=== PATIENT | male | born 1995 | race Caucasian/White ===

== ENCOUNTER 2016-02-24 14:28 | Inpatient (IN) | payer OTHER ==
[~2016-02-24] VITALS: Ht 170.2 cm; Wt 55.6 kg
[~2016-02-24 14:28] MED LIST: CLON0.1T12 PO; ERGO500037 PO; METO50TA7 PO; PARO20TA4 PO; SEVE800T7 PO; TACR1CAP PO
[2016-02-24] MEDS ORDERED: ONDANSETRON INJ 2 MG/ML 2 ML VIAL IV STA (15:17)
[2016-02-24] MEDS ORDERED: MoRPHine SULFATE 4 MG/ML 1 ML CARP\\VIAL IV STA ×2 (15:17→17:56)
--- NOTE | 2016-02-24 15:23 | EMERGENCY ROOM VISIT NOTE ---
History First contact with patient: 14:58 Chief Complaint: ILLNESS Stated Complaint: LETHARGY History of Present Illness The patient is a 20 year old male who presents to the Emergency Room via ambulance with complaints of "lethargy". The patient states that beginning on Sunday he began to feel tired, and his back and chest felt tight. He notes that Sunday he felt the same but then began with trouble breathing and trouble hearing. He notes that his hearing felt muffled. He also has felt dehydrated the past few days. He states that today while at dialysis he felt as if he was going to pass out. He is on dialysis because he has MPGN ( Membranoproliferative Glomerulonephritis) and was diagnosed at age 16 and has received a kidney transplant. The mother notes that this kidney is also beginning to fail. The patient states that he has chest pain currently in the center of his chest rated as a 6/10 and in his upper back. He has not slept in the past few days. He also has associated cold feeling and sweats for the past few days. He denies any other medical problems. He denies any unilateral weakness, speech problems. He notes that the chest and back pain is only when he takes a deep breath. The chest pain and back pain is not reproducible with palpation. It is worse with movement. He also has an associated headache, which is not the worse headache of his life but he rates an 8/10. He denies abdominal pain. He states that his bowel and urine have been normal recently. Review of Systems A complete 10-point Review of Systems was discussed with the patient, with pertinent positives and negatives listed in the History of Present Illness. All remaining Review of Systems questions can be considered negative unless otherwise specified. Past Medical/Surgical History Medical Problems: (1) Chest pain (2) Chronic renal failure syndrome (3) History of - hypertension Family History Cancer Hypertension Social History Smoking Status: Never Smoker Alcohol Use: none Drug Use: none Marital Status: single Housing Status: lives with family Occupation Status: student Current/Historical Medications Scheduled Clonidine Hcl (Catapres), 1 TAB PO DAILY Ergocalciferol (Vitamin D 29132 Unit), 1 CAP PO every other week Lisinopril (Zestril), 40 MG PO HS Metoprolol Succ (Toprol Xl) (Toprol-Xl), 50 MG PO DAILY Sevelamer Carbonate (Renvela), 3 TAB PO TID Tacrolimus (Prograf), 2 MG PO BID Allergies Coded Allergies: Amoxicillin (Verified Allergy, Unknown, ?, 02/24/16) Physical Exam Vital Signs Date Time Temp Pulse Resp B/P Pulse Ox O2 Delivery O2 Flow Rate FiO2 02/24/16 19:40 91 18 127/89 96 02/24/16 17:53 86 16 132/91 97 Room Air 02/24/16 16:18 16 118/82 97 Room Air 02/24/16 15:28 99 Room Air 02/24/16 15:20 86 16 120/75 98 Room Air 02/24/16 14:42 104 02/24/16 14:32 36.6 90 16 108/66 99 Room Air Physical Exam VITAL SIGNS - Vital signs and nursing notes were reviewed. The patient is noted to have a slightly decreased blood pressure here at 108/66. He is not tachycardic. He is afebrile. He is oxygenating well on room air at 99%. GENERAL - 20-year-old male appearing his stated age who is in no acute distress. The patient is ill-appearing. He communicates well with provider and answers questions appropriately. SKIN - Without rashes. HEAD - NC/AT. EYES - PERRL with EOMI bilaterally. Sclera anicteric. Palpebral conjunctiva pink and moist with no injection noted. EARS - No deformities of external structures noted on gross examination bilaterally. No pain elicited with palpation of the tragus bilaterally. External auditory canals without discharge or otorrhea. Tympanic membranes pearly collier without retraction or bulging. No fluid or purulent material visualized behind the TM. Handle of malleus, umbo, cone of light, pars tensa/ flaccid all easily visualized. NOSE - Midline and without cyanosis. No epistaxis or purulent drainage noted. Septum midline without deviation or septal hematoma noted. MOUTH/OROPHARYNX - Without perioral cyanosis. Buccal mucosa pink and moist and without leukoplakia. Tongue midline with equal elevation of palate bilaterally. No tonsillar hypertrophy, erythema, or exudates noted. Good dentition noted. NECK - Neck with FROM. LUNGS - Chest wall symmetric without accessory muscle use, intercostals retractions, or central cyanosis. Normal vesicular breath sounds CTA B/L. No wheezes, rales, or rhonchi appreciated. CARDIAC - RRR with S1/S2. No murmur, rubs, or gallops appreciated. ABDOMEN - Abdominal contour without pulsations or visible masses. BS normoactive all four quadrants. No tenderness, palpable masses, hepatosplenomegaly, or ascites noted. EXTREMITIES - No clubbing or peripheral cyanosis. No pretibial edema present. Strength is intact. NEUROLOGIC - Cranial nerves II through XII grossly intact. Sensory intact to light touch throughout. PSYCH - A&Ox3 and cooperates fully with examiner. Pt is very pleasant and interacts well with examiner. Medical Decision & Procedures ER Provider Diagnostic Interpretation: TWO VIEW CHEST CLINICAL HISTORY: Atypical chest pain. FINDINGS: PA and lateral chest radiographs are compared to study dated 08/01/2015. Correlation is made with abdominal CT dated 08/01/2015. The cardiac silhouette is mildly enlarged. There is a small right pleural effusion with minimal right basilar consolidation. This is only seen on the lateral projection. The left lung appears clear. There is no pneumothorax. The bony thorax appears intact. IMPRESSION: 1. Small right pleural effusion with minimal right basilar consolidation. This could present atelectasis versus a mild infectious or inflammatory pneumonitis. Clinical correlation will be required. 2. The cardiac silhouette is mildly enlarged. This may represent pericardial effusion which was shown on the 08/01/[address] Electronically signed by: Edgard López M.D. 02/24/2016 3:55 PM Laboratory Results 02/24/16 14:04 Red Blood Count 3.95, Mean Corpuscular Volume 94.7, Mean Corpuscular Hemoglobin 33.7, Mean Corpuscular Hemoglobin Concent 35.6, Mean Platelet Volume 9.6, Neutrophils (%) (Auto) 65.1, Lymphocytes (%) (Auto) 14.7, Monocytes (%) (Auto) 16.0, Eosinophils (%) (Auto) 3.2, Basophils (%) (Auto) 0.8, Neutrophils # (Auto ) 5.88, Lymphocytes # (Auto) 1.33, Monocytes # (Auto) 1.45, Eosinophils # (Auto ) 0.29, Basophils # (Auto) 0.07 02/24/16 14:04 Test 02/24/16 14:04 02/24/16 15:20 02/24/16 15:26 White Blood Count 9.04 K/uL (4.8-10.8) Red Blood Count 3.95 M/uL (4.7-6.1) Hemoglobin 13.3 g/dL (14.0-18.0) Hematocrit 37.4 % (42-52) Mean Corpuscular Volume 94.7 fL (80-100) Mean Corpuscular Hemoglobin 33.7 pg (25-34) Mean Corpuscular Hemoglobin Concent 35.6 g/dl (32-36) Platelet Count 234 K/uL (130-400) Mean Platelet Volume 9.6 fL (7.4-10.4) Neutrophils (%) (Auto) 65.1 % Lymphocytes (%) (Auto) 14.7 % Monocytes (%) (Auto) 16.0 % Eosinophils (%) (Auto) 3.2 % Basophils (%) (Auto) 0.8 % Neutrophils # (Auto) 5.88 K/uL (1.4-6.5) Lymphocytes # (Auto) 1.33 K/uL (1.2-3.4) Monocytes # (Auto) 1.45 K/uL (0.11-0.59) Eosinophils # (Auto) 0.29 K/uL (0-0.5) Basophils # (Auto) 0.07 K/uL (0-0.2) RDW Standard Deviation 48.1 fL (36.4-46.3) RDW Coefficient of Variation 13.9 % (11.5-14.5) Immature Granulocyte % (Auto) 0.2 % Immature Granulocyte # (Auto) 0.02 K/uL (0.00-0.02) Erythrocyte Sedimentation Rate 44 mm/hr (0-14) Prothrombin Time 11.3 SECONDS (9.0-12.0) Prothromb Time International Ratio 1.1 (0.9-1.1) Activated Partial Thromboplast Time 25.2 SECONDS (21.0-31.0) Partial Thromboplastin Ratio 1.0 Anion Gap 11.0 mmol/L (3-11) Est Creatinine Clear Calc Drug Dose 19.5 ml/min Estimated GFR () 15.4 Estimated GFR (Non- 13.2 BUN/Creatinine Ratio 3.1 (10-20) Calcium Level 10.0 mg/dl (8.5-10.1) Magnesium Level 2.1 mg/dl (1.8-2.4) Total Bilirubin 0.9 mg/dl (0.2-1) Aspartate Amino Transf (AST/SGOT) 14 U/L (15-37) Alanine Aminotransferase (ALT/SGPT) 15 U/L (12-78) Alkaline Phosphatase 70 U/L (45-117) Total Creatine Kinase 61 U/L (39-308) Creatine Kinase MB < 0.5 ng/ml (0.5-3.6) Creatine Kinase MB Ratio (0-3.0) Troponin I < 0.015 ng/ml (0-0.045) Total Protein 9.1 gm/dl (6.4-8.2) Albumin 4.3 gm/dl (3.4-5.0) Globulin 4.8 gm/dl (2.5-4.0) Albumin/Globulin Ratio 0.9 (0.9-2) Influenza Type A Antigen Neg for Influ A (NEG) Influenza Type B Antigen Neg for Influ B (NEG) Lactic Acid Level 1.0 mmol/L (0.4-2.0) Medications Administered Medications (Trade) Dose Ordered Sig/Moises Route Start Time Stop Time Status Last Admin Dose Admin Morphine Sulfate (MoRPHine SULFATE INJ) 4 mg NOW STAT IV 02/24/16 15:17 02/24/16 15:19 DC 02/24/16 15:27 4 MG Ondansetron HCl (Zofran Inj) 4 mg NOW STAT IV 02/24/16 15:17 02/24/16 15:19 DC 02/24/16 15:27 4 MG Morphine Sulfate (MoRPHine SULFATE INJ) 4 mg NOW STAT IV 02/24/16 17:56 02/24/16 17:57 DC 02/24/16 18:05 4 MG Medical Decision Patient was seen and evaluated as above. After obtaining a thorough history and physical examination IV access was obtained and a CBC, CMP, troponin, stat EKG, chest 2 view routine, magnesium, lactic acid, PTT, prothrombin time, flu swab, CPK, CK-MB, UA clean catch culture if indicated, as well as morphine and Zofran for his pain. Monitor was applied and continuous pulse ox was initiated. CBC did not reveal any leukocytosis, however this must be considered in the setting of immunosuppressant drugs. He was slightly anemic with a hemoglobin of 13.3. His ESR was elevated at 44. Coagulation studies were within normal limits. His CMP revealed a slight decrease in sodium at 135 , and decreased chloride at 93. No other significant a slight abnormality. Patient's magnesium and potassium were all within normal limits. His creatinine was elevated at 5.70 but is decreased from 16 back in July. Troponin and CK-MB were both negative. EKG revealed a normal sinus rhythm, with a nonspecific T-wave abnormality with prolonged QT. This was discussed with my attending. The EKG revealed normal sinus rhythm at 86 bpm, there was no acute ectopy or ischemic change noted. Patient was negative for influenza A and B. During the patient's stay a urine was not provided. The chest x-ray revealed: 1. Small right pleural effusion with minimal right basilar consolidation. This could present atelectasis versus a mild infectious or inflammatory pneumonitis. Clinical correlation will be required. 2. The cardiac silhouette is mildly enlarged. This may represent pericardial effusion which was shown on the 08/01/[address] I agree with the radiologists findings. Because of this I was concerned that although the pleural effusion and inflammatory pneumonitis may be contributing to some of the patient's symptoms, I was concerned about the patient's chest pain that was worse with inspiration. In the absence of pneumonia I'm fearful for a pulmonary embolism. The patient's pain was not reproducible with palpation and was worse with inspiration. Initially I wanted to order a CTA of the chest however was hesitant to do so due to the patient's creatinine function. I then discussed the case with my attending and I felt the patient should be admitted. I then spoke with Dr. Issa, the hospitalist regarding the patient's case. It was decided that a pulmonary embolism should be ruled out at this time as that is an emergent etiology. Dr. Issa, noted that he was able to speak with someone regarding the patient's care and it was decided to scan the patient's chest. I also spoke with the renal fellow from [place] regarding the patient's case and it was decided that given the situation the scan should be ordered. I did provide the patient with more morphine for his pain and the patient was admitted for further evaluation and management. Please refer to further documentation regarding his stay. The patient was stable at the time of admission. In evaluation and treatment of this patient the following differential diagnoses were entertained: Pulmonary embolism, acute myocardial infarction, pneumonitis, pleural effusion, endocarditis, among others. Pulmonary embolism is my main concern and CTA is pending. Troponin was negative therefore I feel like acute myocardial infarction is less likely. Pneumonitis was evident on chest x-ray. Mild pleural effusion was also noted. Endocarditis is also a potential concern however further evaluation and management will commence in the inpatient setting. Impression Primary Impression: Chest pain Additional Impressions: Back pain, Anemia, Creatinine elevation, ESR raised Departure Information Dispostion Admitted as an inpatient Referrals No Doctor, Assigned (PCP) Patient Instructions A Signature Page, [facility]
[2016-02-24 15:29] LABS: BASO % 0.8 %; BASO ABS # 0.07 K/uL (0-0.2); COMPLETE YES; EOS % 3.2 %; HEMATOCRIT 37.4 % (42-52); IG% 0.2 %; LYMPH % 14.7 %; LYMPH ABS # 1.33 K/uL (1.2-3.4); MEAN CELL VOLUME 94.7 fL (80-100); MEAN CORPUSCULAR HEMOGLOBIN 33.7 pg (25-34); MEAN CORPUSCULAR HGB CONC 35.6 g/dl (32-36); MEAN PLATELET VOLUME 9.6 fL (7.4-10.4); NEUT % 65.1 %; PLATELET COUNT 234 K/uL (130-400); RED BLOOD COUNT 3.95 M/uL (4.7-6.1); WHITE BLOOD COUNT 9.04 K/uL (4.8-10.8)
[2016-02-24 15:43] LABS: INR 1.1 (0.9-1.1); PROTHROMBIN TIME (PATIENT) 11.3 SECONDS (9.0-12.0)
[2016-02-24 15:51] LABS: ALB/GLOB RATIO 0.9 (0.9-2); ALKALINE PHOSPHATASE 70 U/L (45-117); ALT/SGPT 15 U/L (12-78); AST/SGOT 14 U/L (15-37); BLOOD UREA NITROGEN 18 mg/dl (7-18); BUN/CREATININE RATIO 3.1 (10-20); CARBON DIOXIDE 31 mmol/L (21-32); CHLORIDE 93 mmol/L (98-107); GLUCOSE 93 mg/dl (70-99); MAGNESIUM 2.1 mg/dl (1.8-2.4); SODIUM 135 mmol/L (136-145)
--- NOTE | 2016-02-24 15:56 | DIAGNOSTIC IMAGING REPORT ---
TWO VIEW CHEST CLINICAL HISTORY: Atypical chest pain. FINDINGS: PA and lateral chest radiographs are compared to study dated 08/01/2015. Correlation is made with abdominal CT dated 08/01/2015. The cardiac silhouette is mildly enlarged. There is a small right pleural effusion with minimal right basilar consolidation. This is only seen on the lateral projection. The left lung appears clear. There is no pneumothorax. The bony thorax appears intact. IMPRESSION: 1. Small right pleural effusion with minimal right basilar consolidation. This could present atelectasis versus a mild infectious or inflammatory pneumonitis. Clinical correlation will be required. 2. The cardiac silhouette is mildly enlarged. This may represent pericardial effusion which was shown on the 08/01/[address] Electronically signed by: Edgard López M.D. 02/24/2016 3:55 PM
--- NOTE | 2016-02-24 17:29 | EMERGENCY ROOM VISIT NOTE ---
ED Visit Note First contact with patient: 14:58 I have personally seen and evaluated the patient with the physician assistant boys track coach. I agree with the diagnostic/management decisions and have personally been involved in these decisions and agree with the diagnosis.
[2016-02-24] MEDS ORDERED: OPTIRAY 320 IV PRN (20:00)
[2016-02-24] MEDS ORDERED: HEPARIN SOD 5000 UNIT/0.5 ML CARP SQ SCH (20:00)
--- NOTE | 2016-02-24 20:10 | DIAGNOSTIC IMAGING REPORT ---
CT ANGIOGRAM OF THE CHEST CLINICAL HISTORY: Chest pain COMPARISON STUDY: No previous studies for comparison. TECHNIQUE: Following the IV administration of 82 mL of Optiray-320, CT angiogram of the thorax was performed from the thoracic inlet to the lung bases utilizing the pulmonary embolus protocol. Images are reviewed in the axial, sagittal, and coronal planes. IV contrast was administered without complication. MIP imaging was performed. CT DOSE: 208.91 mGy.cm FINDINGS: No pathologically enlarged axillary mediastinal or hilar lymph nodes were visualized. There was no evidence of thoracic aortic dilatation. There were no pulmonary artery filling defects to indicate acute pulmonary embolism. There are small bilateral pleural effusions. There are dependent opacities, likely atelectatic. The heart is enlarged. There is a small pericardial effusion which appears slightly larger than on the prior study dated 08/01/2015. The kidneys appear atrophic. IMPRESSION: 1. No evidence of acute pulmonary embolism 2. Small bilateral pleural effusions and bibasilar atelectasis 3. Cardiomegaly. Pericardial effusion. Electronically signed by: Santosh Reed M.D. 02/24/2016 8:09 PM
[2016-02-24] MEDS ORDERED: MoRPHine SULFATE 2 MG/ML CARP IV PRN (20:15)
[2016-02-24] MEDS ORDERED: LISINOPRIL 40 MG TAB PO SCH (21:00)
[2016-02-24] MEDS: HEPARIN SOD 5000 UNIT/0.5 ML CARP SQ SCH (21:00)
[2016-02-24 21:16] VITALS: BP 138/88; PULSE 85; TEMP 38.1; O2SAT 97
[2016-02-24] MEDS: MoRPHine SULFATE 4 MG/ML 1 ML CARP\\VIAL IV PRN (21:27)
[2016-02-24] MEDS: ACETAMINOPHEN 325 MG TAB PO PRN (21:27)
[2016-02-24 21:43] VITALS: BP 138/88; PULSE 85; TEMP 38.1; Ht 170.2 cm; Wt 55.6 kg
[2016-02-24] MEDS: TACROLIMUS 1 MG CAP PO SCH (22:26)
[2016-02-24] MEDS: OXYCODONE HCL IR 5 MG TAB (IMMEDIATE RELEASE) PO PRN (22:28)
--- NOTE | 2016-02-24 22:29 | HISTORY & PHYSICAL EXAMINATION ---
DATE OF ADMISSION: 02/24/2016 CHIEF COMPLAINT: Chest pain and back pain. ADMITTING DIAGNOSES: 1. Chest pain, back pain and possible pulmonary embolism. 2. End-stage renal disease, on dialysis. HISTORY OF PRESENT ILLNESS: Mr. Clay is an unfortunate 20-year-old male who suffers from membranous glomerulonephritis and had renal failure. He has failed 2 or 3 renal transplants, however, he is currently still taking Prograf and seeing the [facility] transplant team in [place]. The patient sees dialysis on Sunday, and Sunday at the [facility] dialysis in [place]. The patient states that 2 days prior to admission he began feeling increasing tiredness and pain in his chest and back. The chest pain is central and radiates to his mid scapular area. The patient had dialysis on the day of his admission, said he felt woozy and had difficulty hearing. His blood pressure was low. He was able to tolerate his dialysis at the center, but then presented to the ER for evaluation. In the ER, the evaluation was concerned the patient had a pulmonary embolism; however, they were also concerned with his renal failure, not to pursue a CT angiogram. After some discussion, it was felt that we should pursue the CT angiogram with the understanding that his transplanted kidney is likely questionably salvageable as he had to re-engage with dialysis 6-8 months ago when his creatinine was 16. He currently has some improvement of his pain with parenteral pain medication and is comfortable. PAST MEDICAL HISTORY: Membranous glomerular nephritis diagnosed at age 16 and renal transplantation as mentioned, hypertension. MEDICATIONS: At presentation include the following; vitamin D 50,000 units every other week, lisinopril 40 mg at bedtime, metoprolol XL 50 a day, tacrolimus 2 mg b.i.d., clonidine 0.1 daily and sevelamer 3 tablets of 800 mg three times a day. SOCIAL HISTORY: Socially does not smoke or drink, lives with his mom, she is present. FAMILY HISTORY: Positive for cancer and hypertension. REVIEW OF SYSTEMS: Positive for chills and sweats at night, no defined temperature, occurring almost every night, drenching his sheets. He has no other focuses, signs or symptoms of an infectious etiology. He did the PermCath removed from his right upper chest on 02/01/2016 and this site is healed without fluctuance. His AV fistula is likewise without issue. PHYSICAL EXAMINATION: GENERAL: He is a pleasant male. He is uncomfortable VITAL SIGNS: Temperature 36.6, heart rate is 91, respirations 18, BP 127/89, O2 sats 96 on room air. HEENT: PERRL, EOMI. Oropharynx clear. TMs clear. NECK: Without lymphadenopathy or JVD. HEART: Regular without murmurs. LUNGS: Clear without wheezes or crackles. His right bicep area is where his AV fistula is, it has thrill present. ABDOMEN: Normoactive bowel sounds, soft, nontender. He has reproducible tenderness in the epigastrium. BACK: Tender at the mid scapular area. This is not as well reproduced, he has no CV angle tenderness. EXTREMITIES: Otherwise, besides his AV fistula are without cyanosis, clubbing or edema. He has no splinter hemorrhages or painful nodes on his fingers. NEUROLOGIC: He is awake, alert and appropriate. Cranial nerves II-XII are intact. Equal symmetrical strength and sensation. LABORATORY DATA: White count of 9, H\T\H is 13 and 37, BUN and creatinine are 18 and 5.7. Otherwise, fairly unremarkable. Coag studies are normal. Influenza is negative. Sed rate is pending at the time of dictation as well as a CT angiogram. The patient had a chest x-ray which shows only very small right pleural effusion and a large cardiac silhouette. EKG shows sinus rhythm, some lateral T-wave inversions in V5 and V6, J-point elevation in V2 and V3, but no TN depression or pronounced ST-T wave changes globally. ASSESSMENT: A 20-year-old male, here with chest pain and back pain of undetermined etiology. PLAN: The most danger to life would be pulmonary embolism. This will be ruled out by undergoing a CT angiogram understanding there is some risk to his renal function with this. This will also be able to evaluate his aortic arch and any other intrathoracic origins of his pain. The patient has baseline pericardial effusion, although he has no rubs or positional component to his pain. This could also be a possible etiology. We will get an idea of the size of the effusion on the CT angiogram. We will use parenteral pain control at this time. In regard to his chills, with his recent instrumentation for his PermCath removal and 3 times a week access for his dialysis certainly endocarditis could be a concern. We will obtain blood cultures, an echocardiogram and a sed rate. We will not institute antibiotic therapy at this time. For his renal dysfunction, Dr. Gonzalez will be consulted for continued dialysis. For his hypertension, we will continue his Catapres, lisinopril and metoprolol. We will continue his Prograf at the present time. We need to discuss this with his transplant team if his graft is failing; what would be the utility of continuing the Prograf. At this point in time, we will employ DVT prevention with heparin; however, pending the results of the CT scan we will also help to determine if he needs to be on parenteral systemic anticoagulation. The patient is a full code. MTDD
[2016-02-24 23:50] VITALS: TEMP 37.5
[2016-02-25] VITALS (22 sets, daily range): BP systolic 107–146; BP diastolic 63–98; PULSE 81–99; TEMP 36.7–37.5; O2SAT 90–98
[2016-02-25] MEDS: MoRPHine SULFATE 4 MG/ML 1 ML CARP\\VIAL IV PRN ×2 (06:59→09:49)
[2016-02-25 07:54] LABS: HEMATOCRIT 35.4 % (42-52); MEAN CELL VOLUME 96.5 fL (80-100); MEAN CORPUSCULAR HEMOGLOBIN 33.8 pg (25-34); MEAN PLATELET VOLUME 9.8 fL (7.4-10.4); PLATELET COUNT 254 K/uL (130-400); RED BLOOD COUNT 3.67 M/uL (4.7-6.1); WHITE BLOOD COUNT 9.26 K/uL (4.8-10.8)
[2016-02-25] MEDS: TACROLIMUS 1 MG CAP PO SCH ×2 (08:17→19:55)
[2016-02-25] MEDS: METOPROLOL SUCC 50MG EXT REL TAB PO SCH (08:17)
[2016-02-25] MEDS: OXYCODONE HCL IR 5 MG TAB (IMMEDIATE RELEASE) PO PRN ×2 (08:17→17:01)
[2016-02-25] MEDS: CLONIDINE HCL 0.1 MG TAB PO SCH (08:17)
[2016-02-25] MEDS: SEVELAMER HYDROCH 800 MG TAB PO SCH ×3 (08:17→19:55)
[2016-02-25 08:48] LABS: BUN/CREATININE RATIO 3.4 (10-20); CALCIUM 9.5 mg/dl (8.5-10.1); POTASSIUM 6.6 mmol/L (3.5-5.1)
[2016-02-25] MEDS: HEPARIN SOD 5000 UNIT/0.5 ML CARP SQ SCH ×2 (08:56→19:52)
[2016-02-25] MEDS ORDERED: CALCIUM GLUCONATE 10% 1,000 MG in SODIUM CHLORIDE 0.9% 50ML 50 ML IV ONE (09:30)
[2016-02-25] MEDS ORDERED: NURSING VERBAL MED ORDER ONE ×2 (09:45→13:00)
[2016-02-25] MEDS ORDERED: PAROXETINE 20 MG TAB PO ONE (10:40)
[2016-02-25] MEDS: PANTOprazole INJ 40 MG in SYRINGE 0 ML IV SCH (11:38)
--- NOTE | 2016-02-25 12:27 | ECHOCARDIOGRAM REPORT ---
*NOTICE TO RECEIVING CONSTITUTION PARTY AGENCY This information is strictly Confidential and protected under [place] law. [place] law prohibits you from making any further disclosure of this information unless further disclosure is expressly permitted by the written consent of the person to whom it pertains or is authorized by law. A general authorization for the release of medical or other information is not sufficient for this purpose. Hospital accepts no responsibility if the information is made available to any other person, INCLUDING THE PATIENT. Interpretation Summary * Name: ENRICO PEREZ Study Date: 02/25/2016 06:42 AM BP: 131/83 mmHg * Patient Location: [id number]\S\2 HR: 97 * : 1995 (M/d/yyyy) Gender: Male Height: 67 in * Age: 20 yrs Ethnicity: CA Weight: 153 lb * Ordering Physician: Booker Issa * Referring Physician: Self, Referred * Performed By: Manoj Ford RCS * * Reason For Study: Pericardial Dz * BSA: 1.8 m2 * -- Conclusions -- * 1. Normal left ventricular size and systolic function. EF 55-60%. No regional wall motion abnormalities. Mild concentric left ventricular hypertrophy. No significant diastolic dysfunction. * 2. Mild aortic regurgitation. * 3. Small circumferential pericardial effusion without echocardiographic evidence of tamponade physiology. * 4. Mildly dilated aortic root for age adjusted BSA. Mildly dilated ascending aorta. * 5. Compared to prior study on 02/20/2014, pericardial effusion is now present. Procedure Details * A complete two-dimensional transthoracic echocardiogram was performed (2D, M-mode, Doppler and color flow Doppler). Left Ventricle * Normal left ventricular size and systolic function. EF 55-60%. No regional wall motion abnormalities. Mild concentric left ventricular hypertrophy. No significant diastolic dysfunction. Right Ventricle * The right ventricle is normal in size and function. * The right ventricular systolic function is normal as assessed by tricuspid annular plane systolic excursion (TAPSE) (normal >1.5 cm). Atria * The left atrial size is normal. * Right atrial size is normal. * There is no evidence of atrial septal defect, but resolution does not allow assessment for a patent foramen ovale. Mitral Valve * The mitral valve leaflets appear normal. There is no evidence of stenosis, fluttering, or prolapse. * There is no mitral valve stenosis. * There is trace mitral regurgitation. Tricuspid Valve * The tricuspid valve is not well visualized, but is grossly normal. * There is no tricuspid stenosis. * There is trace tricuspid regurgitation. Aortic Valve * The aortic valve is trileaflet. * No hemodynamically significant valvular aortic stenosis. * Mild aortic regurgitation. Pulmonic Valve * The pulmonary valve is inadequately visualized, but the Doppler data is adequate for interpretation. * There is no pulmonic valvular stenosis. * There is no significant pulmonary regurgitation. Great Vessels * Mildly dilated aortic root for age adjusted BSA. Mildly dilated ascending aorta. * Normal pulmonary venous flow pattern. Pericardium/Pleural * Small circumferential pericardial effusion without echocardiographic evidence of tamponade physiology. Great Vessels * Normal inferior vena cava size and collapsability with sniff indicates a normal right atrial pressure of 3 mmHg MMode 2D Measurements and Calculations IVSd 1.3 cm IVSs 1.3 cm LVIDd 3.6 cm LVIDs 2.6 cm LVPWd 1.3 cm LVPWs 1.2 cm IVS/LVPW 0.97 FS 27.7 % EDV(Teich) 52.8 ml ESV(Teich) 23.9 ml EF(Teich) 54.7 % EDV(cubed) 44.9 ml ESV(cubed) 17.0 ml EF(cubed) 62.2 % % IVS thick 0.84 % % LVPW thick -7.38 % LV mass(C)d 156.7 grams LV mass(C)dI 86.9 grams/m\S\2 LV mass(C)s 95.5 grams LV mass(C)sI 52.9 grams/m\S\2 CO(Teich) 2.8 l/min CI(Teich) 1.5 l/min/m\S\2 SV(Teich) 28.9 ml SI(Teich) 16.0 ml/m\S\2 CO(cubed) 2.7 l/min CI(cubed) 1.5 l/min/m\S\2 SV(cubed) 27.9 ml SI(cubed) 15.5 ml/m\S\2 Ao root diam 4.2 cm Ao root area 13.7 cm\S\2 ACS 2.4 cm LA dimension 3.9 cm asc Aorta Diam 4.5 cm LA/Ao 0.93 LVAd ap4 49.3 cm\S\2 LVLd ap4 11.0 cm EDV(MOD-sp4) 179.0 ml LVAs ap4 28.4 cm\S\2 LVLs ap4 9.6 cm ESV(MOD-sp4) 70.0 ml EF(MOD-sp4) 60.9 % LVAd ap2 40.2 cm\S\2 LVLd ap2 10.2 cm EDV(MOD-sp2) 133.0 ml LVAs ap2 20.9 cm\S\2 LVLs ap2 7.9 cm ESV(MOD-sp2) 47.0 ml EF(MOD-sp2) 64.7 % CO(MOD-sp4) 10.5 l/min CI(MOD-sp4) 5.8 l/min/m\S\2 SV(MOD-sp4) 109.0 ml SI(MOD-sp4) 60.4 ml/m\S\2 CO(MOD-sp2) 8.3 l/min CI(MOD-sp2) 4.6 l/min/m\S\2 SV(MOD-sp2) 86.0 ml SI(MOD-sp2) 47.7 ml/m\S\2 Doppler Measurements and Calculations MV E max braxton 92.8 cm/sec MV A max braxton 85.4 cm/sec MV E/A 1.1 MV P1/2t max braxton 96.1 cm/sec MV P1/2t 54.9 msec MVA(P1/2t) 4.0 cm\S\2 MV dec slope 513.0 cm/sec\S\2 MV dec time 0.18 sec Ao V2 max 125.5 cm/sec Ao max PG 6.3 mmHg Ao max PG (full) 0.03 mmHg AI dec slope 302.5 cm/sec\S\2 LV V1 max PG 6.3 mmHg LV V1 max 125.1 cm/sec TV E max braxton 48.9 cm/sec PA V2 max 99.9 cm/sec PA max PG 4.0 mmHg TR max braxton 253.2 cm/sec
[2016-02-25] MEDS ORDERED: DiphenhydrAMINE HCL 50 MG/ML VIAL ONE (12:55)
[2016-02-25] MEDS: DiphenhydrAMINE HCL 50 MG/ML VIAL IV PRN (12:59)
--- NOTE | 2016-02-25 13:10 | Family Medicine Progress Note ---
Progress Note Date of Service Feb 25, 2016. Subjective Pt evaluation today including: conversation w/ patient, conversation w/ family , physical exam, chart review, lab review, conversation w/ sales consultant, review of inpatient medication list Pain: still has chest pain and back pain on deep inspiration PO Intake: minimal Voiding: no voiding problems Patient lying in bed and appears tired but in no acute distress. Still complaining of chest pain that radiates to the back and is made worse by deep inspiration. Patient also said he had some fever and chills overnight. Constitutional: + chills, + fatigue, + fever, No sweats Eyes: No worsening of vision Respiratory: No cough, No shortness of breath, No sputum, No wheezing Cardiovascular: + chest pain, No orthopnea, No palpitations Abdomen: No nausea, No pain, No vomiting Musculoskeletal: No joint pain, No swelling Medications Current Inpatient Medications Medications (Trade) Dose Ordered Sig/Moises Route Start Time Stop Time Status Last Admin Dose Admin Acetaminophen (Tylenol Tab) 650 mg Q4H PRN PO 02/24/16 20:00 03/25/16 19:59 02/24/16 21:27 650 MG Ondansetron HCl 4 mg 4 mg Q6H PRN IV 02/24/16 20:00 03/25/16 19:59 Pantoprazole Sodium/Syringe (Protonix Inj/ Syringe) 10 ml @ 5 mls/min DAILY@11 IV 02/25/16 11:00 03/26/16 10:59 02/25/16 11:38 5 MLS/MIN Ioversol (Optiray 320) 111 ml UD PRN IV 02/24/16 20:00 02/28/16 19:59 Clonidine HCl (Catapres Tab) 0.1 mg DAILY PO 02/25/16 08:00 03/26/16 08:59 02/25/16 08:17 0.1 MG Sevelamer HCl (Renagel Tab) 2,400 mg TID PO 02/24/16 21:00 03/25/16 20:59 02/25/16 08:17 2,400 MG Oxycodone HCl (Roxicodone Immediate Rel Tab) 10 mg Q6 PRN PO 02/24/16 20:15 03/09/16 20:14 02/25/16 08:17 10 MG Metoprolol Succinate (Toprol Xl Tab) 50 mg DAILY PO 02/25/16 08:00 03/26/16 08:59 02/25/16 08:17 50 MG Tacrolimus (Prograf Cap) 2 mg BID PO 02/24/16 20:00 03/25/16 19:59 02/25/16 08:17 2 MG Heparin Sodium (Porcine) (Heparin Sq 5000 Unit/0.5ml) 5,000 unit Q12 SQ 02/24/16 21:00 03/25/16 20:59 Morphine Sulfate (MoRPHine SULFATE INJ) 2 mg Q2H PRN IV 02/25/16 10:15 03/10/16 10:14 Morphine Sulfate (MoRPHine SULFATE INJ) 4 mg Q2H PRN IV 02/25/16 10:15 03/10/16 10:14 Paroxetine HCl (pAXil TAB) 20 mg QAM PO 02/26/16 08:00 03/27/16 07:59 Objective Vital Signs Date Time Temp Pulse Resp B/P Pulse Ox O2 Delivery O2 Flow Rate FiO2 02/25/16 11:42 36.9 82 143/85 02/25/16 11:00 37.1 84 18 135/86 91 Room Air 02/25/16 10:26 37.3 99 20 98 02/25/16 08:20 Room Air 02/25/16 07:56 37.3 99 20 139/91 98 Room Air 02/25/16 00:03 37.5 97 16 131/83 90 Room Air 02/25/16 00:00 Room Air 02/24/16 23:50 37.5 02/24/16 21:43 38.1 85 20 138/88 Room Air 02/24/16 21:16 38.1 85 20 138/88 97 Room Air 02/24/16 20:56 36.6 94 18 134/96 98 02/24/16 20:56 94 134/96 98 02/24/16 19:40 91 18 127/89 96 02/24/16 17:53 86 16 132/91 97 Room Air 02/24/16 16:18 16 118/82 97 Room Air 02/24/16 15:28 99 Room Air 02/24/16 15:20 86 16 120/75 98 Room Air 02/24/16 14:42 104 02/24/16 14:32 36.6 90 16 108/66 99 Room Air Physical Exam General Appearance: WD/WN, no apparent distress, + pertinent finding (patient appears uncomfortable) Eyes: normal inspection, + pertinent finding ENT: hearing grossly normal, pharynx normal Neck: supple, thyroid normal, no JVD Respiratory/Chest: chest non-tender, lungs clear, normal breath sounds, no respiratory distress, no accessory muscle use, + pertinent finding (pain on deep inspiration) Cardiovascular: regular rate, rhythm, no JVD, no murmur, + pertinent finding ( hyperdynamic) Abdomen: normal bowel sounds, non tender, soft Extremities: non-tender, + pertinent finding (Av fistula in the left bicep, obvious thrill, obvious use and injection sights, non erythematous, bilateral hand tremor) Neurologic/Psychiatric: alert, normal mood/affect, oriented x 3 Skin: normal color, warm/dry, + pertinent finding (non uraemic) Laboratory Results Results Past 24 Hours Test 02/24/16 14:04 02/24/16 15:20 02/24/16 15:26 02/25/16 07:17 Range/Units White Blood Count 9.04 9.26 4.8-10.8 K/uL Red Blood Count 3.95 3.67 4.7-6.1 M/uL Hemoglobin 13.3 12.4 14.0-18.0 g/dL Hematocrit 37.4 35.4 42-52 % Mean Corpuscular Volume 94.7 96.5 80-100 fL Mean Corpuscular Hemoglobin 33.7 33.8 25-34 pg Mean Corpuscular Hemoglobin Concent 35.6 35.0 32-36 g/dl Platelet Count 234 254 130-400 K/uL Mean Platelet Volume 9.6 9.8 7.4-10.4 fL Neutrophils (%) (Auto) 65.1 % Lymphocytes (%) (Auto) 14.7 % Monocytes (%) (Auto) 16.0 % Eosinophils (%) (Auto) 3.2 % Basophils (%) (Auto) 0.8 % Neutrophils # (Auto) 5.88 1.4-6.5 K/uL Lymphocytes # (Auto) 1.33 1.2-3.4 K/uL Monocytes # (Auto) 1.45 0.11-0.59 K/uL Eosinophils # (Auto) 0.29 0-0.5 K/uL Basophils # (Auto) 0.07 0-0.2 K/uL RDW Standard Deviation 48.1 50.1 36.4-46.3 fL RDW Coefficient of Variation 13.9 14.1 11.5-14.5 % Immature Granulocyte % (Auto) 0.2 % Immature Granulocyte # (Auto) 0.02 0.00-0.02 K/uL Erythrocyte Sedimentation Rate 44 0-14 mm/hr Prothrombin Time 11.3 9.0-12.0 SECONDS Prothromb Time International Ratio 1.1 0.9-1.1 Activated Partial Thromboplast Time 25.2 21.0-31.0 SECONDS Partial Thromboplastin Ratio 1.0 Sodium Level 135 133 136-145 mmol/L Potassium Level 4.0 6.6 3.5-5.1 mmol/L Chloride Level 93 93 98-107 mmol/L Carbon Dioxide Level 31 28 21-32 mmol/L Anion Gap 11.0 12.0 3-11 mmol/L Blood Urea Nitrogen 18 34 7-18 mg/dl Creatinine 5.70 10.00 0.60-1.40 mg/dl Est Creatinine Clear Calc Drug Dose 19.5 9.9 ml/min Estimated GFR () 15.4 7.8 Estimated GFR (Non- 13.2 6.7 BUN/Creatinine Ratio 3.1 3.4 10-20 Random Glucose 93 87 70-99 mg/dl Calcium Level 10.0 9.5 8.5-10.1 mg/dl Magnesium Level 2.1 1.8-2.4 mg/dl Total Bilirubin 0.9 0.2-1 mg/dl Aspartate Amino Transf (AST/SGOT) 14 15-37 U/L Alanine Aminotransferase (ALT/SGPT) 15 12-78 U/L Alkaline Phosphatase 70 45-117 U/L Total Creatine Kinase 61 39-308 U/L Creatine Kinase MB < 0.5 0.5-3.6 ng/ml Creatine Kinase MB Ratio 0-3.0 Troponin I < 0.015 0-0.045 ng/ml Total Protein 9.1 6.4-8.2 gm/dl Albumin 4.3 3.4-5.0 gm/dl Globulin 4.8 2.5-4.0 gm/dl Albumin/Globulin Ratio 0.9 0.9-2 Influenza Type A Antigen Neg for Influ A NEG Influenza Type B Antigen Neg for Influ B NEG Lactic Acid Level 1.0 0.4-2.0 mmol/L C-Reactive Protein 19.60 0-0.29 mg/dl Test 02/25/16 09:45 Range/Units Procalcitonin 1.99 0-0.5 ng/mL Microbiology Results 02/24/16 Blood Culture, Received Pending 02/24/16 Blood Culture, Received Pending Assessment and Plan 20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 He presented to the hospital with pleuritic chest pain that radiates to the back. CT was negative for PE, pneumonia, pneumothorax, aortic dissection and aortic aneurysm Hyperkalemia - potassium jumped from 4.0-->6.6 - calcium gluconate given - peaked t waves on EKG - moved to telemetry - dialysis started by Dr. Sesay - repeat potassium at 2pm - creatinine raised from 5-->10 Chest Pain w/fever (38.1) - MSK vs pericarditis vs Endocarditis - ESR raised to 44 - procalcitonin and CRP ordered - Echo negative for endocarditis, no tamponade, EF 55-60 - Morphine Q2 PRN ESRD - baseline creatinine 5 - gets dialysis Sunday, , and Sunday - raised to 10 after getting dialysis yesterday - currently getting dialyzed - On Prograf (Tacrolimus) to prevent rejection - Make sure patient on list for another transplant - Nephrology consulted HTN - Catapres and metoprolol - Lisinopril stopped due to increased creatinine Depression - Paxil 20mg OD Code - Full code Resident Physician Supervision Note: I interviewed and examined the patient. Discussed with Dr. Ni and agree with findings and plan as documented in the note. Any exceptions or clarifications are listed here: None Documented By: Jhony Allison chest pain ongoing - substernal and then around to back between shoulder blades - worse w deep breath. no real change positional, stabbing in quality. had fever. d/w nephrology - and for HD shortly. nephro is wondering if fistula not working properly - leading to limited amount of blood exposed to HD and therefore allowing for K and cr to rise so steeply after HD. ros otherwise negative except for as above vitals noted fatigued, appearing maybe mildly uncomfortable, but nad heent - nc at mmm. no jvd cardio - reg no r/m/g. good heart tones, not muffled, consistent tones abd - soft nd nt, no epigastric tenderness msk - sl asymmetry in rib ROM - L side very slightly exhaled compared to R - but as a whole group not really individual ribs, nontender; periscapular pain also not reproducible. neuro - no focal deficits a/p hyperkalemia w EKG changes - move to [facility], give calcium gluconate stat, HD to start shortly. chest pain - uncertain etiology. CT effectively has ruled out PE, aortic dissection, pneumonia, pneumothorax, rib fx; skin shows no changes c/w early shingles (and pattern radiates to back and crosses midline); hx sounds VERY MSK , but exam does not show consistent findings with this even as he's having pain. concern related to pericardial effusion (ie ?pericarditis) but not positional, EKG and troponin not c/w pericarditis. given that effusion is only (+) finding in the area of his pain - presumptively give consideration to pericarditis. will ask ID input in this regard fever - uncertain etiology - w/u above rules out a lot of significant pathology. blood cultures pending. check urine culture. checked CRP and procalcitonin which were nonspecific but favoring more towards potentially bacterial etiology. again will ask ID input. may need MELVIN to r/o endocarditis (especially with mild nonspecific valvulopathy on TTE). not septic, no clear need for urgent empiric abx. follow closely though, trend markers, low threshold for empiric abx, await ID input as well otherwise as above Continued [facility] stay due to: multiple IV medications needed, home environment unsafe for pt
--- NOTE | 2016-02-25 17:31 | Nephrology Consultation ---
Nephrology Consultation Date & Providers Date of Consultation: Feb 25, 2016. Primary Care Provider: No Doctor, Assigned Referring Provider: Reason for Consultation ESRD History of Present Illness Leonard Clay is a 20-year-old male admitted to [facility] yesterday evening with chest and back pain. 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 He was diagnosed with kidney disease at the age of 16 and reports that he quickly progressed to ESRD. He was maintained on peritoneal dialysis for approximately 3 years before he received a donor renal transplant. He states that his primary disease recurred early following transplant. In the setting of advanced allograft failure, he returned to hemodialysis approximately 5 months ago. He is not interested in home dialysis options. He states that due to the recurrence of his kidney disease he was told that he would not be an acceptable candidate for relisting for a second transplant. He denies any history of allograft rejection. He has been maintained on hemodialysis at [facility] under the care of Dr. Palma. Leonard is on dialysis TTS schedule. I reviewed his treatments with the [facility] nursing staff this morning. He completed 3.5 hours of dialysis without complications yesterday. Net UF was 2.6 kg to EDW of 58.5 kg. Several hours after dialysis, Leonard reports that chest pain started which was the reason he presented to the Emergency Department. Symptoms only improved slightly overnight. CTA was negative for PE. Despite HD yesterday, laboratory studies were notable for hyperkalemia and dialysis was performed for additional clearance today. He tolerated dialysis well with appropriate access flows and pressures. Qb 400. Net UF 1 kg. 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 Hypertension. History of renal transplant. Surgical: Renal transplant, AVF placement, PD catheter Allergies Coded Allergies: Amoxicillin (Verified Allergy, Unknown, ?, 02/24/16) Inpatient Medications Current Inpatient Medications Medications (Trade) Dose Ordered Sig/Moises Route Start Time Stop Time Status Last Admin Dose Admin Acetaminophen (Tylenol Tab) 650 mg Q4H PRN PO 02/24/16 20:00 03/25/16 19:59 02/24/16 21:27 650 MG Ondansetron HCl 4 mg 4 mg Q6H PRN IV 02/24/16 20:00 03/25/16 19:59 Pantoprazole Sodium/Syringe (Protonix Inj/ Syringe) 10 ml @ 5 mls/min DAILY@11 IV 02/25/16 11:00 03/26/16 10:59 02/25/16 11:38 5 MLS/MIN Ioversol (Optiray 320) 111 ml UD PRN IV 02/24/16 20:00 02/28/16 19:59 Clonidine HCl (Catapres Tab) 0.1 mg DAILY PO 02/25/16 08:00 03/26/16 08:59 02/25/16 08:17 0.1 MG Sevelamer HCl (Renagel Tab) 2,400 mg TID PO 02/24/16 21:00 03/25/16 20:59 02/25/16 14:00 2,400 MG Oxycodone HCl (Roxicodone Immediate Rel Tab) 10 mg Q6 PRN PO 02/24/16 20:15 03/09/16 20:14 02/25/16 17:01 10 MG Metoprolol Succinate (Toprol Xl Tab) 50 mg DAILY PO 02/25/16 08:00 03/26/16 08:59 02/25/16 08:17 50 MG Tacrolimus (Prograf Cap) 2 mg BID PO 02/24/16 20:00 03/25/16 19:59 02/25/16 08:17 2 MG Heparin Sodium (Porcine) (Heparin Sq 5000 Unit/0.5ml) 5,000 unit Q12 SQ 02/24/16 21:00 03/25/16 20:59 Morphine Sulfate (MoRPHine SULFATE INJ) 2 mg Q2H PRN IV 02/25/16 10:15 03/10/16 10:14 Morphine Sulfate (MoRPHine SULFATE INJ) 4 mg Q2H PRN IV 02/25/16 10:15 03/10/16 10:14 Paroxetine HCl (pAXil TAB) 20 mg QAM PO 02/26/16 08:00 03/27/16 07:59 Diphenhydramine HCl (Benadryl Inj) 25 mg Q4H PRN IV 02/25/16 13:00 03/26/16 12:59 02/25/16 12:59 25 MG Heparin Sodium (Porcine) (Heparin Iv Bolus) 2,000 unit ONE IV 02/25/16 17:15 02/25/16 17:16 UNV Heparin Sodium (Porcine) (Heparin Iv Bolus) 1,000 unit Q1H IV 02/25/16 17:15 02/25/16 19:16 UNV Family History Cancer Hypertension Social History Smoking Status: Never Smoker Drug Use: none Marital Status: single 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 Review of Systems A complete review of systems was performed. Pertinent positives are noted above. All other systems are negative. Physical Exam Date Time Temp Pulse Resp B/P Pulse Ox O2 Delivery O2 Flow Rate FiO2 02/25/16 16:00 36.7 93 131/76 02/25/16 15:35 36.7 90 18 127/72 94 Room Air 02/25/16 15:15 90 127/72 02/25/16 15:00 90 134/80 02/25/16 14:45 91 145/98 02/25/16 14:30 93 146/90 02/25/16 14:15 86 142/86 02/25/16 14:00 83 130/84 02/25/16 13:45 85 134/82 02/25/16 13:30 84 136/85 02/25/16 13:15 81 132/90 02/25/16 13:00 88 134/87 02/25/16 12:45 83 107/63 02/25/16 12:30 82 131/82 02/25/16 12:15 84 122/77 02/25/16 12:00 85 121/76 02/25/16 12:00 Room Air 02/25/16 11:42 36.9 82 143/85 02/25/16 11:00 37.1 84 18 135/86 91 Room Air 02/25/16 10:26 37.3 99 20 98 02/25/16 08:20 Room Air 02/25/16 07:56 37.3 99 20 139/91 98 Room Air 02/25/16 00:03 37.5 97 16 131/83 90 Room Air 02/25/16 00:00 Room Air 02/24/16 23:50 37.5 02/24/16 21:43 38.1 85 20 138/88 Room Air 02/24/16 21:16 38.1 85 20 138/88 97 Room Air 02/24/16 20:56 36.6 94 18 134/96 98 02/24/16 20:56 94 134/96 98 02/24/16 19:40 91 18 127/89 96 02/24/16 17:53 86 16 132/91 97 Room Air General Appearance: WD/WN, no apparent distress Head: normocephalic, atraumatic Eyes: normal inspection, sclerae normal ENT: normal ENT inspection, pharynx normal Neck: supple, no JVD Respiratory/Chest: lungs clear, no respiratory distress, no accessory muscle use Cardiovascular: regular rate, rhythm, no gallop, no murmur Abdomen/GI: non tender, soft Back: normal inspection, no CVA tenderness Extremities/Musculoskelatal: normal inspection, no pedal edema Neurologic/Psych: alert, oriented x 3 Skin: normal color Laboratory Results Last 24 Hours Test 02/25/16 07:17 02/25/16 09:45 02/25/16 14:00 White Blood Count 9.26 K/uL Red Blood Count 3.67 M/uL Hemoglobin 12.4 g/dL Hematocrit 35.4 % Mean Corpuscular Volume 96.5 fL Mean Corpuscular Hemoglobin 33.8 pg Mean Corpuscular Hemoglobin Concent 35.0 g/dl RDW Standard Deviation 50.1 fL RDW Coefficient of Variation 14.1 % Platelet Count 254 K/uL Mean Platelet Volume 9.8 fL Sodium Level 133 mmol/L Potassium Level 6.6 mmol/L Chloride Level 93 mmol/L Carbon Dioxide Level 28 mmol/L Anion Gap 12.0 mmol/L Blood Urea Nitrogen 34 mg/dl Creatinine 10.00 mg/dl Est Creatinine Clear Calc Drug Dose 9.9 ml/min Estimated GFR () 7.8 Estimated GFR (Non- 6.7 BUN/Creatinine Ratio 3.4 Random Glucose 87 mg/dl Calcium Level 9.5 mg/dl C-Reactive Protein 19.60 mg/dl Procalcitonin 1.99 ng/mL Impression (1) ESRD on hemodialysis (2) Encounter for hemodialysis for ESRD (3) Renal transplant, status post (4) Hypertension (5) Hyperkalemia Leonard is a 20-year-old male with ESRD since age 16. He had early failure of a renal allograft reportedly due to recurrence of his primary kidney disease. He is maintained on prograf and current on hemodialysis. He is on TTS HD at [facility]. Last dialysis was completed yesterday but unfortunately laboratory studies this morning were notable for hyperkalemia. Serum creatinine also elevated. No clinical evidence to suggest rhabdomyolysis and no signs of recirculation otherwise during dialysis. We reviewed and discussed dietary compliance and will be repeating a metabolic profile. Etiology of chest pain remains unclear. CXR, echocardiogram and CTA chest were reviewed today. Recommendations ESRD: -- Tolerated HD today for 1 kg to EDW -- Plan HD tomorrow per TTS schedule -- Renal diet -- Check metabolic profile in the AM -- Continue prograf at home dose Hypertension: -- Clonidine and metoprolol per home schedule CKD/MBD: -- Ren[facility]ed [facility]
[2016-02-25 17:56] LABS: CALCIUM 8.7 mg/dl (8.5-10.1); CREATININE 5.1 mg/dl (0.60-1.40)
[2016-02-25 17:59] LABS: POTASSIUM 4.4 mmol/L (3.5-5.1)
[2016-02-25] MEDS ORDERED: HEPARIN SOD (PORCINE) 1000 UNIT/ML 10 ML VIAL IV SCH (18:00)
[2016-02-25] MEDS: ACETAMINOPHEN 325 MG TAB PO PRN (18:14)
[2016-02-25 18:28] LABS: BUN/CREATININE RATIO 2.1 (10-20)
[2016-02-25] MEDS: HEPARIN SOD (PORCINE) 1000 UNIT/ML 10 ML VIAL IV SCH ×2 (19:00→19:11)
[2016-02-25] MEDS: MoRPHine SULFATE 2 MG/ML CARP IV PRN (19:55)
[2016-02-26] VITALS (23 sets, daily range): BP systolic 131–174; BP diastolic 84–111; PULSE 85–105; TEMP 37–37.9; O2SAT 94–97
[2016-02-26] MEDS: OXYCODONE HCL IR 5 MG TAB (IMMEDIATE RELEASE) PO PRN ×3 (03:28→19:17)
[2016-02-26] MEDS: MoRPHine SULFATE 2 MG/ML CARP IV PRN (06:09)
[2016-02-26 06:27] LABS: BASO % 0.4 %; BASO ABS # 0.03 K/uL (0-0.2); COMPLETE YES; EOS % 4.4 %; HEMATOCRIT 32.4 % (42-52); IG% 0.1 %; LYMPH % 17.5 %; LYMPH ABS # 1.48 K/uL (1.2-3.4); MEAN CELL VOLUME 95.9 fL (80-100); MEAN CORPUSCULAR HEMOGLOBIN 32.2 pg (25-34); MEAN CORPUSCULAR HGB CONC 33.6 g/dl (32-36); MEAN PLATELET VOLUME 9.5 fL (7.4-10.4); MONO % 13.1 %; NEUT % 64.5 %; PLATELET COUNT 223 K/uL (130-400); RED BLOOD COUNT 3.38 M/uL (4.7-6.1); WHITE BLOOD COUNT 8.45 K/uL (4.8-10.8)
[2016-02-26 07:20] LABS: BUN/CREATININE RATIO 2.3 (10-20); CALCIUM 9.6 mg/dl (8.5-10.1); CREATININE 8.1 mg/dl (0.60-1.40)
[2016-02-26] MEDS: DiphenhydrAMINE HCL 50 MG/ML VIAL IV PRN (08:30)
[2016-02-26] MEDS: HEPARIN SOD 5000 UNIT/0.5 ML CARP SQ SCH ×2 (09:00→21:00)
[2016-02-26] MEDS: SEVELAMER HYDROCH 800 MG TAB PO SCH ×3 (10:36→21:08)
[2016-02-26] MEDS: METOPROLOL SUCC 50MG EXT REL TAB PO SCH ×2 (10:37→21:08)
[2016-02-26] MEDS: PAROXETINE 20 MG TAB PO SCH (10:37)
[2016-02-26] MEDS: TACROLIMUS 1 MG CAP PO SCH ×2 (10:37→21:08)
[2016-02-26] MEDS: CLONIDINE HCL 0.1 MG TAB PO SCH (10:38)
[2016-02-26] MEDS: PANTOprazole INJ 40 MG in SYRINGE 0 ML IV SCH (10:39)
--- NOTE | 2016-02-26 12:36 | Dialysis Progress Note ---
Hemodialysis Note Date of Service Feb 26, 2016. Chief Complaint ESRD Subjective No acute events overnight. Leonard reports persistent headaches and chest pain. Pain control has been reasonable. His mother is at the bedside and reported that overall he appears comfortable. Unfortunately, his primary issues is persistent pleuritic chest pain. He denies any shortness of breath. He was seen and evaluated during hemodialysis. Leonard was tolerating dialysis well. Low grade temp of 38.1 overnight but patient did not endorse subjective fevers or chills. No chest wall tenderness. Review of Systems A complete review of systems was performed. Pertinent positives are noted above. All other systems are negative. Vital Signs Last 8 Hrs Date Time Temp Pulse Resp B/P Pulse Ox O2 Delivery O2 Flow Rate FiO2 02/26/16 11:23 37.5 93 18 154/104 96 Room Air 02/26/16 11:22 37.5 93 155/102 02/26/16 11:15 105 146/106 02/26/16 11:00 93 154/104 02/26/16 10:45 94 160/101 02/26/16 10:30 92 150/97 02/26/16 10:15 93 167/111 02/26/16 10:00 97 154/109 02/26/16 09:45 90 146/96 02/26/16 09:30 87 148/100 02/26/16 09:15 86 154/96 02/26/16 09:00 85 153/102 02/26/16 08:45 88 174/107 02/26/16 08:30 86 152/97 02/26/16 08:20 89 166/106 02/26/16 08:09 37.3 92 155/100 02/26/16 07:51 37.3 92 18 159/102 97 Room Air I & O 24-Hour Column 02/26/16 08:00 Intake Total 713 ml Output Total 1000 ml Balance -287 ml Last Recorded Weight Weight (Kilograms): 55.800 Physical Exam General Appearance: no apparent distress, + thin Head: normocephalic, atraumatic Eyes: normal inspection, sclerae normal ENT: normal ENT inspection, pharynx normal Neck: supple, no JVD Respiratory/Chest: lungs clear, no respiratory distress, no accessory muscle use Cardiovascular: regular rate, rhythm, no gallop, + pertinent finding (no rub appreciated during hemodialysis treatment) Abdomen/GI: non tender, soft, + pertinent finding (allograft non tender) Extremities/Musculoskelatal: normal inspection, no pedal edema Neurologic/Psych: alert, oriented x 3 Social History Smoking Status: Never smoker Drug Use: none Marital Status: single 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 Laboratory Results Past 24 Hours 02/26/16 05:55 Red Blood Count 3.38, Mean Corpuscular Volume 95.9, Mean Corpuscular Hemoglobin 32.2, Mean Corpuscular Hemoglobin Concent 33.6, Mean Platelet Volume 9.5, Neutrophils (%) (Auto) 64.5, Lymphocytes (%) (Auto) 17.5, Monocytes (%) (Auto) 13.1, Eosinophils (%) (Auto) 4.4, Basophils (%) (Auto) 0.4, Neutrophils # (Auto ) 5.45, Lymphocytes # (Auto) 1.48, Monocytes # (Auto) 1.11, Eosinophils # (Auto ) 0.37, Basophils # (Auto) 0.03 02/25/16 17:10 02/26/16 05:55 Test 02/25/16 17:10 02/26/16 05:55 Anion Gap 9.0 mmol/L (3-11) 12.0 mmol/L (3-11) Est Creatinine Clear Calc Drug Dose 20.2 ml/min 11.8 ml/min Estimated GFR () 17.6 10.0 Estimated GFR (Non- 15.2 8.7 BUN/Creatinine Ratio 2.1 (10-20) 2.3 (10-20) Calcium Level 8.7 mg/dl (8.5-10.1) 9.6 mg/dl (8.5-10.1) White Blood Count 8.45 K/uL (4.8-10.8) Red Blood Count 3.38 M/uL (4.7-6.1) Hemoglobin 10.9 g/dL (14.0-18.0) Hematocrit 32.4 % (42-52) Mean Corpuscular Volume 95.9 fL (80-100) Mean Corpuscular Hemoglobin 32.2 pg (25-34) Mean Corpuscular Hemoglobin Concent 33.6 g/dl (32-36) Platelet Count 223 K/uL (130-400) Mean Platelet Volume 9.5 fL (7.4-10.4) Neutrophils (%) (Auto) 64.5 % Lymphocytes (%) (Auto) 17.5 % Monocytes (%) (Auto) 13.1 % Eosinophils (%) (Auto) 4.4 % Basophils (%) (Auto) 0.4 % Neutrophils # (Auto) 5.45 K/uL (1.4-6.5) Lymphocytes # (Auto) 1.48 K/uL (1.2-3.4) Monocytes # (Auto) 1.11 K/uL (0.11-0.59) Eosinophils # (Auto) 0.37 K/uL (0-0.5) Basophils # (Auto) 0.03 K/uL (0-0.2) RDW Standard Deviation 48.9 fL (36.4-46.3) RDW Coefficient of Variation 14.0 % (11.5-14.5) Immature Granulocyte % (Auto) 0.1 % Immature Granulocyte # (Auto) 0.01 K/uL (0.00-0.02) C-Reactive Protein 19.00 mg/dl (0-0.29) Procalcitonin 2.15 ng/mL (0-0.5) Allergies Coded Allergies: Amoxicillin (Verified Allergy, Unknown, ?, 02/24/16) Medications Current Inpatient Medications Medications (Trade) Dose Ordered Sig/Moises Route Start Time Stop Time Status Last Admin Dose Admin Acetaminophen (Tylenol Tab) 650 mg Q4H PRN PO 02/24/16 20:00 03/25/16 19:59 02/25/16 18:14 650 MG Ondansetron HCl 4 mg 4 mg Q6H PRN IV 02/24/16 20:00 03/25/16 19:59 Pantoprazole Sodium/Syringe (Protonix Inj/ Syringe) 10 ml @ 5 mls/min DAILY@11 IV 02/25/16 11:00 03/26/16 10:59 02/26/16 10:39 5 MLS/MIN Ioversol (Optiray 320) 111 ml UD PRN IV 02/24/16 20:00 02/28/16 19:59 Clonidine HCl (Catapres Tab) 0.1 mg DAILY PO 02/25/16 08:00 03/26/16 08:59 02/26/16 10:38 0.1 MG Sevelamer HCl (Renagel Tab) 2,400 mg TID PO 02/24/16 21:00 03/25/16 20:59 02/26/16 10:36 2,400 MG Oxycodone HCl (Roxicodone Immediate Rel Tab) 10 mg Q6 PRN PO 02/24/16 20:15 03/09/16 20:14 02/26/16 11:50 10 MG Metoprolol Succinate (Toprol Xl Tab) 50 mg DAILY PO 02/25/16 08:00 03/26/16 08:59 02/26/16 10:37 50 MG Tacrolimus (Prograf Cap) 2 mg BID PO 02/24/16 20:00 03/25/16 19:59 02/26/16 10:37 2 MG Heparin Sodium (Porcine) (Heparin Sq 5000 Unit/0.5ml) 5,000 unit Q12 SQ 02/24/16 21:00 03/25/16 20:59 Morphine Sulfate (MoRPHine SULFATE INJ) 2 mg Q2H PRN IV 02/25/16 10:15 03/10/16 10:14 02/26/16 06:09 2 MG Morphine Sulfate (MoRPHine SULFATE INJ) 4 mg Q2H PRN IV 02/25/16 10:15 03/10/16 10:14 Paroxetine HCl (pAXil TAB) 20 mg QAM PO 02/26/16 08:00 03/27/16 07:59 02/26/16 10:37 20 MG Diphenhydramine HCl (Benadryl Inj) 25 mg Q4H PRN IV 02/25/16 13:00 03/26/16 12:59 02/26/16 08:30 25 MG Impression (1) ESRD on hemodialysis (2) Encounter for hemodialysis for ESRD (3) Renal transplant, status post (4) Hypertension (5) Hyperkalemia Leonard is a 20-year-old male with ESRD since age 16. 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 She stated that testing for SLE was negative. 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 No rejection noted on biopsies obtained. He is maintained on Prograf. He is on TTS HD at [facility]. He completed a full dialysis treatment yesterday without complications for hyperkalemia. Etiology of chest pain and headaches remain unclear. CXR, echocardiogram and CTA chest were overall unremarkable aside from small pericardial and pleural effusions. Fevers and non specific inflammatory markers have been present. Recommendations ESRD: -- HD today for additional UF/clearance per TTS schedule -- Renal diet -- Continue to monitor metabolic profile while inpatient -- Continue Prograf at current dose -- MPGN can be associated with a variety of immune and connective tissue conditions but clinical presentation does not suggest a specific etiology -- Screening EN was negative in 2014. There is no obvious synovitis or joint effusions and -- Clinical presentation does not suggest symptomatic transplant rejection Hypertension: -- Clonidine and metoprolol per home schedule CKD/MBD: -- Henrique [facility]
[2016-02-26] MEDS: MoRPHine SULFATE 4 MG/ML 1 ML CARP\\VIAL IV PRN ×3 (14:01→22:48)
--- NOTE | 2016-02-26 15:41 | Medical Consult ---
Consultation Date of Consultation: Feb 26, 2016. Attending Physician: Jhony Cooper D.O. 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 He has had extensive workup without obvious etiology being found. CT scan of the chest, read by me, shows small pleural effusion and cardiomegaly, no evidence pneumonia or pulmonary embolism. Echocardiogram also shows small pleural effusion. Patient denies any cough, gastrointestinal or urinary complaints, rash, joint complaints , or rash. No significant travel or exposure history. Past Medical/Surgical History Medical Problems: (1) Acute renal failure Status: Acute (2) Anemia Status: Acute (3) Back pain Status: Acute (4) Creatinine elevation Status: Acute (5) ESR raised Status: Acute (6) Nausea vomiting and diarrhea Status: Acute Social History Problems: (1) Status post kidney transplant Status: Acute Medical Problems: (1) Chest pain (2) Chronic renal failure syndrome (3) Encounter for hemodialysis for ESRD (4) ESRD on hemodialysis (5) History of - hypertension (6) Hyperkalemia (7) Hypertension Surgical Problems: (1) Renal transplant, status post Family History Cancer Hypertension Social History Smoking Status: Never Smoker Drug Use: none Marital Status: single Housing Status: lives with family Occupation Status: student Allergies Coded Allergies: Amoxicillin (Verified Allergy, Unknown, ?, 02/24/16) Current Inpatient Medications Current Inpatient Medications Medications (Trade) Dose Ordered Sig/Moises Route Start Time Stop Time Status Last Admin Dose Admin Acetaminophen (Tylenol Tab) 650 mg Q4H PRN PO 02/24/16 20:00 03/25/16 19:59 02/25/16 18:14 650 MG Ondansetron HCl 4 mg 4 mg Q6H PRN IV 02/24/16 20:00 03/25/16 19:59 Pantoprazole Sodium/Syringe (Protonix Inj/ Syringe) 10 ml @ 5 mls/min DAILY@11 IV 02/25/16 11:00 03/26/16 10:59 02/26/16 10:39 5 MLS/MIN Ioversol (Optiray 320) 111 ml UD PRN IV 02/24/16 20:00 02/28/16 19:59 Clonidine HCl (Catapres Tab) 0.1 mg DAILY PO 02/25/16 08:00 03/26/16 08:59 02/26/16 10:38 0.1 MG Sevelamer HCl (Renagel Tab) 2,400 mg TID PO 02/24/16 21:00 03/25/16 20:59 02/26/16 10:36 2,400 MG Oxycodone HCl (Roxicodone Immediate Rel Tab) 10 mg Q6 PRN PO 02/24/16 20:15 03/09/16 20:14 02/26/16 11:50 10 MG Metoprolol Succinate (Toprol Xl Tab) 50 mg DAILY PO 02/25/16 08:00 03/26/16 08:59 02/26/16 10:37 50 MG Tacrolimus (Prograf Cap) 2 mg BID PO 02/24/16 20:00 03/25/16 19:59 02/26/16 10:37 2 MG Heparin Sodium (Porcine) (Heparin Sq 5000 Unit/0.5ml) 5,000 unit Q12 SQ 02/24/16 21:00 03/25/16 20:59 Morphine Sulfate (MoRPHine SULFATE INJ) 2 mg Q2H PRN IV 02/25/16 10:15 03/10/16 10:14 02/26/16 06:09 2 MG Morphine Sulfate (MoRPHine SULFATE INJ) 4 mg Q2H PRN IV 02/25/16 10:15 03/10/16 10:14 02/26/16 14:01 4 MG Paroxetine HCl (pAXil TAB) 20 mg QAM PO 02/26/16 08:00 03/27/16 07:59 02/26/16 10:37 20 MG Diphenhydramine HCl (Benadryl Inj) 25 mg Q4H PRN IV 02/25/16 13:00 03/26/16 12:59 02/26/16 08:30 25 MG Review of Systems Constitutional: + chills, + fatigue, + fever, + sweats, + weakness Eyes: No problem reported ENT: + hearing loss, No problem reported Respiratory: + shortness of breath, No problem reported Cardiovascular: + chest pain Abdomen: No problem reported Musculoskeletal: No problem reported Genitourinary - Male: No problem reported Neurologic: No problem reported Psychiatric: No problem reported Endocrine: No problem reported Hematologic / Lymphatic: No problem reported Integumentary: No problem reported Allergic / Immunologic: No problem reported Physical Exam Date Time Temp Pulse Resp B/P Pulse Ox O2 Delivery O2 Flow Rate FiO2 02/26/16 11:23 37.5 93 18 154/104 96 Room Air 02/26/16 11:22 37.5 93 155/102 02/26/16 11:15 105 146/106 02/26/16 11:00 93 154/104 02/26/16 10:45 94 160/101 02/26/16 10:30 92 150/97 02/26/16 10:15 93 167/111 02/26/16 10:00 97 154/109 02/26/16 09:45 90 146/96 02/26/16 09:30 87 148/100 02/26/16 09:15 86 154/96 02/26/16 09:00 85 153/102 02/26/16 08:45 88 174/107 02/26/16 08:30 86 152/97 02/26/16 08:20 89 166/106 02/26/16 08:09 37.3 92 155/100 02/26/16 07:51 37.3 92 18 159/102 97 Room Air 02/26/16 04:00 Room Air 02/26/16 03:36 37.3 89 18 152/90 97 Room Air 02/26/16 00:04 37.1 88 18 138/84 94 Room Air 02/26/16 00:00 Room Air 02/25/16 20:00 Room Air 02/25/16 19:54 37.4 87 18 131/77 93 Room Air 02/25/16 16:00 36.7 93 131/76 02/25/16 16:00 Room Air 02/25/16 15:35 36.7 90 18 127/72 94 Room Air General Appearance: WD/WN, no apparent distress, + thin Head: normocephalic, atraumatic Eyes: normal inspection, EOMI, sclerae normal ENT: normal ENT inspection, hearing grossly normal, pharynx normal Neck: supple, no adenopathy, thyroid normal, trachea midline Respiratory/Chest: chest non-tender, lungs clear, normal breath sounds, no respiratory distress Cardiovascular: regular rate, rhythm, no gallop, no murmur Abdomen/GI: normal bowel sounds, non tender, soft, no organomegaly Back: normal inspection, no CVA tenderness Extremities/Musculoskelatal: no calf tenderness, non-tender Neurologic/Psych: alert, oriented x 3 Skin: normal color, warm/dry, no rash Lymphatic: no adenopathy Laboratory Results ----- RUN DATE: 02/26/16 [facility] LAB PAGE 1 RUN TIME: 740 Specimen Inquiry PATIENT: ENRICO PERE[id number] AGE/SX: 20/M ROOM: [facility] REG : 02/24/[address]: Jhony Cooper D.O. : 1995 BED: 1 DIS : STATUS: ADM IN TLOC: SPEC #: [id number] GAY: 02/24/16 STATUS: RES REQ #: [id number] RECD: 02/24/[address]: Booker Issa M.D. SOURCE: BLOOD ENTR: 02/24/16-[address] [facility] [address]: Mychal Good D.O. SPDESC: Lissette Gonzalez MD No Doctor, Assigned ORDERED: BLOOD CULTURE Procedure Result Verified Site BLD CULT Preliminary 02/26/16 NO GROWTH TO DATE. Last 24 Hours Test 02/25/16 17:10 02/26/16 05:55 Sodium Level 137 mmol/L 137 mmol/L Potassium Level 4.4 mmol/L 5.0 mmol/L Chloride Level 99 mmol/L 99 mmol/L Carbon Dioxide Level 29 mmol/L 26 mmol/L Anion Gap 9.0 mmol/L 12.0 mmol/L Blood Urea Nitrogen 11 mg/dl 19 mg/dl Creatinine 5.10 mg/dl 8.10 mg/dl Est Creatinine Clear Calc Drug Dose 20.2 ml/min 11.8 ml/min Estimated GFR () 17.6 10.0 Estimated GFR (Non- 15.2 8.7 BUN/Creatinine Ratio 2.1 2.3 Random Glucose 99 mg/dl 94 mg/dl Calcium Level 8.7 mg/dl 9.6 mg/dl White Blood Count 8.45 K/uL Red Blood Count 3.38 M/uL Hemoglobin 10.9 g/dL Hematocrit 32.4 % Mean Corpuscular Volume 95.9 fL Mean Corpuscular Hemoglobin 32.2 pg Mean Corpuscular Hemoglobin Concent 33.6 g/dl Platelet Count 223 K/uL Mean Platelet Volume 9.5 fL Neutrophils (%) (Auto) 64.5 % Lymphocytes (%) (Auto) 17.5 % Monocytes (%) (Auto) 13.1 % Eosinophils (%) (Auto) 4.4 % Basophils (%) (Auto) 0.4 % Neutrophils # (Auto) 5.45 K/uL Lymphocytes # (Auto) 1.48 K/uL Monocytes # (Auto) 1.11 K/uL Eosinophils # (Auto) 0.37 K/uL Basophils # (Auto) 0.03 K/uL RDW Standard Deviation 48.9 fL RDW Coefficient of Variation 14.0 % Immature Granulocyte % (Auto) 0.1 % Immature Granulocyte # (Auto) 0.01 K/uL C-Reactive Protein 19.00 mg/dl Procalcitonin 2.15 ng/mL CT ANGIOGRAM OF THE CHEST CLINICAL HISTORY: Chest pain COMPARISON STUDY: No previous studies for comparison. TECHNIQUE: Following the IV administration of 82 mL of Optiray-320, CT angiogram of the thorax was performed from the thoracic inlet to the lung bases utilizing the pulmonary embolus protocol. Images are reviewed in the axial, sagittal, and coronal planes. IV contrast was administered without complication. MIP imaging was performed. CT DOSE: 208.91 mGy.cm FINDINGS: No pathologically enlarged axillary mediastinal or hilar lymph nodes were visualized. There was no evidence of thoracic aortic dilatation. There were no pulmonary artery filling defects to indicate acute pulmonary embolism. There are small bilateral pleural effusions. There are dependent opacities, likely atelectatic. The heart is enlarged. There is a small pericardial effusion which appears slightly larger than on the prior study dated 08/01/2015. The kidneys appear atrophic. IMPRESSION: 1. No evidence of acute pulmonary embolism 2. Small bilateral pleural effusions and bibasilar atelectasis 3. Cardiomegaly. Pericardial effusion. Electronically signed by: Santosh Reed M.D. 02/24/2016 8:09 PM The status of this report is Signed. Draft = Not yet reviewed or approved by Radiologist. Signed = Reviewed and approved by Radiologist. <AttendingPhy></AttendingPhy> <FamilyPhy>No Doctor, Assigned</FamilyPhy> < PrimaryPhy>No Doctor, Assigned</PrimaryPhy> <UnitNumber>[id number]</UnitNumber> <VisitNumber>[id number]</VisitNumber> <PatientName>ENRICO PEREZ</ PatientName> <DateOfBirth>1995</DateOfBirth> <Location>[facility]</Location> < ServiceDate>02/24/16</ServiceDate> <MNE>ESINDI</MNE> <OrderingPhy>Booker Issa M.D.</OrderingPhy> <OrderingPhyMNE>f rep ord dr barker</OrderingPhyMNE> < DictatingPhyMNE>f rep dict dr barker</DictatingPhyMNE> <CCListMNE>f rep ct lorrainee</ CCListMNE> <AdmittingPhyMNE>f pt admit dr barker</AdmittingPhyMNE> <AttendingPhyMNE >f pt attend dr barker</AttendingPhyMNE> <ConsultingPhyMNE>f pt consult dr braker</ConsultingPhyMNE> <FamilyPhyMNE>f pt fam dr barker</FamilyPhyMNE> <OtherPhyMNE>f pt other dr barker</OtherPhyMNE Assessment & Plan 20-year-old male with 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 Only findings thus far have been small pericardial effusion, elevated procalcitonin and C reactive protein. Negative blood cultures and no other localizing findings and negative CT of the chest, acute bacterial process seems somewhat less likely clinical picture more consistent with pericarditis, with both infectious ( most likely viral) and inflammatory etiologies possible. I have ordered appropriate studies for CMV and EBV, and await final blood culture results. Continue to hold antibiotics unless cultures become positive or fevers recur. Will follow.
[2016-02-26] MEDS ORDERED: LIDODERM (LIDOCAINE) PATCH 5% TD ONE (16:00)
[2016-02-26] MEDS ORDERED: DIAZEPAM 5MG TAB PO ONE (16:15)
--- NOTE | 2016-02-26 17:48 | Family Medicine Progress Note ---
Progress Note Date of Service Feb 26, 2016. Subjective Pt evaluation today including: conversation w/ patient, physical exam, chart review, review of studies, conversation w/ sap portal consultant, review of inpatient medication list Pain: 9/10 pleuritic Chest Pain, back pain, no worse than previous. Pt reports ongoing 9/10 pleuritic Chest pain radiating to back, occasional SOB. + JEFFREY, no visual changes Constitutional: No chills, No fever Respiratory: + shortness of breath (occasional), No cough Cardiovascular: + chest pain, No palpitations Abdomen: No nausea, No pain, No vomiting Medications Current Inpatient Medications Medications (Trade) Dose Ordered Sig/Moises Route Start Time Stop Time Status Last Admin Dose Admin Acetaminophen (Tylenol Tab) 650 mg Q4H PRN PO 02/24/16 20:00 03/25/16 19:59 02/25/16 18:14 650 MG Ondansetron HCl 4 mg 4 mg Q6H PRN IV 02/24/16 20:00 03/25/16 19:59 Pantoprazole Sodium/Syringe (Protonix Inj/ Syringe) 10 ml @ 5 mls/min DAILY@11 IV 02/25/16 11:00 03/26/16 10:59 02/25/16 11:38 5 MLS/MIN Ioversol (Optiray 320) 111 ml UD PRN IV 02/24/16 20:00 02/28/16 19:59 Clonidine HCl (Catapres Tab) 0.1 mg DAILY PO 02/25/16 08:00 03/26/16 08:59 02/25/16 08:17 0.1 MG Sevelamer HCl (Renagel Tab) 2,400 mg TID PO 02/24/16 21:00 03/25/16 20:59 02/25/16 19:55 2,400 MG Oxycodone HCl (Roxicodone Immediate Rel Tab) 10 mg Q6 PRN PO 02/24/16 20:15 03/09/16 20:14 02/26/16 03:28 10 MG Metoprolol Succinate (Toprol Xl Tab) 50 mg DAILY PO 02/25/16 08:00 03/26/16 08:59 02/25/16 08:17 50 MG Tacrolimus (Prograf Cap) 2 mg BID PO 02/24/16 20:00 03/25/16 19:59 02/25/16 19:55 2 MG Heparin Sodium (Porcine) (Heparin Sq 5000 Unit/0.5ml) 5,000 unit Q12 SQ 02/24/16 21:00 03/25/16 20:59 Morphine Sulfate (MoRPHine SULFATE INJ) 2 mg Q2H PRN IV 02/25/16 10:15 03/10/16 10:14 02/26/16 06:09 2 MG Morphine Sulfate (MoRPHine SULFATE INJ) 4 mg Q2H PRN IV 02/25/16 10:15 03/10/16 10:14 Paroxetine HCl (pAXil TAB) 20 mg QAM PO 02/26/16 08:00 03/27/16 07:59 Diphenhydramine HCl (Benadryl Inj) 25 mg Q4H PRN IV 02/25/16 13:00 03/26/16 12:59 02/25/16 12:59 25 MG Objective Vital Signs Date Time Temp Pulse Resp B/P Pulse Ox O2 Delivery O2 Flow Rate FiO2 02/26/16 07:51 37.3 92 18 159/102 97 Room Air 02/26/16 04:00 Room Air 02/26/16 03:36 37.3 89 18 152/90 97 Room Air 02/26/16 00:04 37.1 88 18 138/84 94 Room Air 02/26/16 00:00 Room Air 02/25/16 20:00 Room Air 02/25/16 19:54 37.4 87 18 131/77 93 Room Air 02/25/16 16:00 36.7 93 131/76 02/25/16 16:00 Room Air 02/25/16 15:35 36.7 90 18 127/72 94 Room Air 02/25/16 15:15 90 127/72 02/25/16 15:00 90 134/80 02/25/16 14:45 91 145/98 02/25/16 14:30 93 146/90 02/25/16 14:15 86 142/86 02/25/16 14:00 83 130/84 02/25/16 13:45 85 134/82 02/25/16 13:30 84 136/85 02/25/16 13:15 81 132/90 02/25/16 13:00 88 134/87 02/25/16 12:45 83 107/63 02/25/16 12:30 82 131/82 02/25/16 12:15 84 122/77 02/25/16 12:00 85 121/76 02/25/16 12:00 Room Air 02/25/16 11:42 36.9 82 143/85 02/25/16 11:00 37.1 84 18 135/86 91 Room Air 02/25/16 10:26 37.3 99 20 98 Physical Exam General Appearance: WD/WN, no apparent distress Eyes: normal inspection Neck: supple, no JVD Respiratory/Chest: lungs clear, normal breath sounds Cardiovascular: regular rate, rhythm, no JVD, no murmur Abdomen: normal bowel sounds, non tender, soft Extremities: no pedal edema, no calf tenderness, + pertinent finding (fistula in place ofr dialysis LUE) Neurologic/Psychiatric: alert Skin: normal color, warm/dry Laboratory Results Results Past 24 Hours Test 02/25/16 09:45 02/25/16 17:10 02/26/16 05:55 Range/Units Procalcitonin 1.99 2.15 0-0.5 ng/mL Sodium Level 137 137 136-145 mmol/L Potassium Level 4.4 5.0 3.5-5.1 mmol/L Chloride Level 99 99 98-107 mmol/L Carbon Dioxide Level 29 26 21-32 mmol/L Anion Gap 9.0 12.0 3-11 mmol/L Blood Urea Nitrogen 11 19 7-18 mg/dl Creatinine 5.10 8.10 0.60-1.40 mg/dl Est Creatinine Clear Calc Drug Dose 20.2 11.8 ml/min Estimated GFR () 17.6 10.0 Estimated GFR (Non- 15.2 8.7 BUN/Creatinine Ratio 2.1 2.3 10-20 Random Glucose 99 94 70-99 mg/dl Calcium Level 8.7 9.6 8.5-10.1 mg/dl White Blood Count 8.45 4.8-10.8 K/uL Red Blood Count 3.38 4.7-6.1 M/uL Hemoglobin 10.9 14.0-18.0 g/dL Hematocrit 32.4 42-52 % Mean Corpuscular Volume 95.9 80-100 fL Mean Corpuscular Hemoglobin 32.2 25-34 pg Mean Corpuscular Hemoglobin Concent 33.6 32-36 g/dl Platelet Count 223 130-400 K/uL Mean Platelet Volume 9.5 7.4-10.4 fL Neutrophils (%) (Auto) 64.5 % Lymphocytes (%) (Auto) 17.5 % Monocytes (%) (Auto) 13.1 % Eosinophils (%) (Auto) 4.4 % Basophils (%) (Auto) 0.4 % Neutrophils # (Auto) 5.45 1.4-6.5 K/uL Lymphocytes # (Auto) 1.48 1.2-3.4 K/uL Monocytes # (Auto) 1.11 0.11-0.59 K/uL Eosinophils # (Auto) 0.37 0-0.5 K/uL Basophils # (Auto) 0.03 0-0.2 K/uL RDW Standard Deviation 48.9 36.4-46.3 fL RDW Coefficient of Variation 14.0 11.5-14.5 % Immature Granulocyte % (Auto) 0.1 % Immature Granulocyte # (Auto) 0.01 0.00-0.02 K/uL C-Reactive Protein 19.00 0-0.29 mg/dl Assessment and Plan 20 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 reassess for improvement in the morning Hx of Fever/ Suspected infection -fever resolved - procalcitonin 2.15, CRP 19, infectious origin inconclusive based on lack of leukocytosis Hyperkalemia - resolved with dialysis - nl sinus rhythm overnight per telemetry - moved to telemetry - F/u prp in the morning ESRD - baseline creatinine 5 - gets dialysis Sunday, , and Sunday - Cr 5.8--> 8.1 despite dialysis yesterday - also dialyzed this morning - Continue Prograf - Await Nephrology input for worsening Cr HTN - BP elevated in the 150's systolic despite Catapres and metoprolol - Increased Metoprolol to 50 mg BID Low H/H -likely due to dilution effect, 10.9/32.4 <-- 12.4/35.4 -Continue to monitor Depression - Continue Paxil 20mg OD Code - Full code Resident Physician Supervision Note: I interviewed and examined the patient. Discussed with Dr. Odonnell and agree with findings and plan as documented in the note. Any exceptions or clarifications are listed here: None Documented By: Jhony Cooper feeling about the same - chest pain radiating to back unchanged no further fevers vitals noted nad breathing unlabored MSK exam unchanged - very mild asymmetry on exam, but no pain reproducible chest pain - ?atypical for pericarditis, fits the most w rib/MSK but exam not consistent with this, less likely "generic" pleurisy given no pulmonary/pleural nidus for this ---check EN and RF - possibly autoimmune mediated muscle pain creating muscle inflammation and setting up scenario of muscular "pain out of proportion to exam " ---lidocaine patch, trial of valium for muscle relaxant effect fever/elevated inflammatory markers -no overt sepsis. no new findings today, continue to follow closely. no role for empiric abx yet, ID input noted/appreciated. -?related to transplant rejection? ESRD on HD -ongoing dialysis. nephrology following for ?fistula issues Continued [facility] stay due to: inadequate oral pain control, multiple IV medications needed Discharge planning: home Resident Tracking Resident Involvement: Resident Care Provided Care Provided: Adult Hospital Medicine
[2016-02-26] MEDS: HEPARIN SOD (PORCINE) 1000 UNIT/ML 10 ML VIAL IV SCH (18:20)
[2016-02-27] VITALS (19 sets, daily range): BP systolic 79–118; BP diastolic 47–91; PULSE 90–112; TEMP 36.7–37; O2SAT 92–100
[2016-02-27] MEDS: ONDANSETRON INJ 2 MG/ML 2 ML VIAL IV PRN ×2 (05:46→06:39)
[2016-02-27] MEDS: MoRPHine SULFATE 4 MG/ML 1 ML CARP\\VIAL IV PRN (05:56)
[2016-02-27] MEDS ORDERED: NURSING VERBAL MED ORDER ONE ×2 (06:00→12:45)
[2016-02-27] MEDS ORDERED: SODIUM CHLORIDE 0.9% 250ML 250 ML IV SCH (07:30)
[2016-02-27 08:27] LABS: HEMATOCRIT 29.9 % (42-52); MEAN CELL VOLUME 94.9 fL (80-100); MEAN CORPUSCULAR HEMOGLOBIN 32.4 pg (25-34); MEAN CORPUSCULAR HGB CONC 34.1 g/dl (32-36); MEAN PLATELET VOLUME 9.4 fL (7.4-10.4); PLATELET COUNT 257 K/uL (130-400); RED BLOOD COUNT 3.15 M/uL (4.7-6.1); WHITE BLOOD COUNT 11.61 K/uL (4.8-10.8)
[2016-02-27] MEDS: METOPROLOL SUCC 50MG EXT REL TAB PO SCH (09:00)
[2016-02-27] MEDS: SEVELAMER HYDROCH 800 MG TAB PO SCH (09:00)
[2016-02-27] MEDS ORDERED: ASPIRIN 325 MG ECTAB PO SCH (09:00)
[2016-02-27] MEDS ORDERED: COLCHICINE 0.6 MG TAB PO SCH (09:00)
[2016-02-27] MEDS: CLONIDINE HCL 0.1 MG TAB PO SCH (09:00)
[2016-02-27] MEDS ORDERED: LIDODERM (LIDOCAINE) PATCH 5% TD SCH (09:00)
[2016-02-27] MEDS: HEPARIN SOD 5000 UNIT/0.5 ML CARP SQ SCH (09:00)
[2016-02-27] MEDS: PAROXETINE 20 MG TAB PO SCH (09:10)
[2016-02-27 09:12] LABS: BUN/CREATININE RATIO 2.4 (10-20); CALCIUM 9.5 mg/dl (8.5-10.1); CREATININE 8.3 mg/dl (0.60-1.40); POTASSIUM 5.2 mmol/L (3.5-5.1)
[2016-02-27] MEDS: TACROLIMUS 1 MG CAP PO SCH (09:14)
[2016-02-27] MEDS ORDERED: SODIUM CHLORIDE 0.9% 250ML 250 ML IV ONE (09:15)
[2016-02-27] MEDS ORDERED: HYDROmorphone INJ 0.5 MG/0.5 ML SYR IV STA (11:07)
--- NOTE | 2016-02-27 11:30 | Nephrology Progress Note ---
Nephrology Progress Note Date of Service Feb 27, 2016. Chief Complaint ESRD Subjective Patient was transferred to a monitored bed this morning due to hypotension. I reviewed the case with Dr. Velazquez and Dr. Miguel. I also spoke to the Leonard's mother. Leonard reports no improvement in chest or back pain. He denied fevers or chills. He continues to experience pleuritic retrosternal chest discomfort. He had an episode of lightheadedness and visual changes briefly this morning. He denied palpitations. He does not have any arthralgias or myalgias. Tolerated HD yesterday without complications, net UF 1 kg. Review of Systems A complete review of systems was performed. Pertinent positives are noted above. All other systems are negative. Vital Signs Last 8 Hrs Date Time Temp Pulse Resp B/P Pulse Ox O2 Delivery O2 Flow Rate FiO2 02/27/16 10:16 36.8 102 20 106/75 98 Room Air 02/27/16 09:45 36.8 105 18 92 02/27/16 09:36 105 103/67 02/27/16 09:05 112 93/56 02/27/16 08:01 36.8 106 18 79/47 92 Room Air 02/27/16 07:53 91/61 02/27/16 07:30 Room Air 02/27/16 06:00 101 20 101/70 100 Room Air 02/27/16 05:45 99 20 89/61 100 Room Air I & O 24-Hour Column 02/27/16 08:00 Intake Total 220 ml Output Total 1000 ml Balance -780 ml Last Recorded Weight Weight (Kilograms): 55.600 Physical Exam General Appearance: WD/WN, no apparent distress Head: normocephalic, atraumatic Eyes: normal inspection, sclerae normal ENT: normal ENT inspection, pharynx normal Neck: supple, no JVD Respiratory/Chest: lungs clear, no respiratory distress, no accessory muscle use Cardiovascular: regular rate, rhythm, no gallop, no murmur, + pertinent finding (no rub) Abdomen/GI: non tender, soft Extremities/Musculoskelatal: normal inspection, no pedal edema Neurologic/Psych: alert, oriented x 3 Family History Cancer Hypertension Social History Smoking Status: Never smoker Drug Use: none Marital Status: single 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 Laboratory Results Past 24 Hours 02/27/16 08:15 02/27/16 08:15 Test 02/26/16 16:37 02/27/16 08:15 Red Blood Count 3.15 M/uL (4.7-6.1) Mean Corpuscular Volume 94.9 fL (80-100) Mean Corpuscular Hemoglobin 32.4 pg (25-34) Mean Corpuscular Hemoglobin Concent 34.1 g/dl (32-36) RDW Standard Deviation 48.3 fL (36.4-46.3) RDW Coefficient of Variation 13.8 % (11.5-14.5) Mean Platelet Volume 9.4 fL (7.4-10.4) Anion Gap 11.0 mmol/L (3-11) Est Creatinine Clear Calc Drug Dose 11.3 ml/min Estimated GFR () 9.7 Estimated GFR (Non- 8.4 BUN/Creatinine Ratio 2.4 (10-20) Calcium Level 9.5 mg/dl (8.5-10.1) Allergies Coded Allergies: Amoxicillin (Verified Allergy, Unknown, ?, 02/24/16) Medications Current Inpatient Medications Medications (Trade) Dose Ordered Sig/Moises Route Start Time Stop Time Status Last Admin Dose Admin Acetaminophen (Tylenol Tab) 650 mg Q4H PRN PO 02/24/16 20:00 03/25/16 19:59 02/25/16 18:14 650 MG Ondansetron HCl 4 mg 4 mg Q6H PRN IV 02/24/16 20:00 03/25/16 19:59 02/27/16 06:39 4 MG Pantoprazole Sodium/Syringe (Protonix Inj/ Syringe) 10 ml @ 5 mls/min DAILY@11 IV 02/25/16 11:00 03/26/16 10:59 02/26/16 10:39 5 MLS/MIN Ioversol (Optiray 320) 111 ml UD PRN IV 02/24/16 20:00 02/28/16 19:59 Clonidine HCl (Catapres Tab) 0.1 mg DAILY PO 02/25/16 08:00 03/26/16 08:59 02/26/16 10:38 0.1 MG Sevelamer HCl (Renagel Tab) 2,400 mg TID PO 02/24/16 21:00 1/28/17 20:59 02/26/16 21:08 2,400 MG Oxycodone HCl (Roxicodone Immediate Rel Tab) 10 mg Q6 PRN PO 02/24/16 20:15 03/09/16 20:14 02/26/16 19:17 10 MG Tacrolimus (Prograf Cap) 2 mg BID PO 02/24/16 20:00 03/25/16 19:59 02/27/16 09:14 2 MG Heparin Sodium (Porcine) (Heparin Sq 5000 Unit/0.5ml) 5,000 unit Q12 SQ 02/24/16 21:00 03/25/16 20:59 Morphine Sulfate (MoRPHine SULFATE INJ) 2 mg Q2H PRN IV 02/25/16 10:15 03/10/16 10:14 02/26/16 06:09 2 MG Morphine Sulfate (MoRPHine SULFATE INJ) 4 mg Q2H PRN IV 02/25/16 10:15 03/10/16 10:14 02/27/16 05:56 4 MG Paroxetine HCl (pAXil TAB) 20 mg QAM PO 02/26/16 08:00 03/27/16 07:59 02/27/16 09:10 20 MG Diphenhydramine HCl (Benadryl Inj) 25 mg Q4H PRN IV 02/25/16 13:00 03/26/16 12:59 02/26/16 08:30 25 MG Lidocaine (Lidoderm Patch 5%) 1 patch QAM TD 02/27/16 09:00 03/28/16 08:59 02/27/16 09:17 1 PATCH Miscellaneous (Remove Lidoderm Patch) 1 ea DAILY@21 N/A 02/26/16 21:00 03/27/16 20:59 02/26/16 21:09 1 EA Metoprolol Succinate (Toprol Xl Tab) 50 mg BID PO 02/26/16 21:00 03/27/16 20:59 02/26/16 21:08 50 MG Colchicine (Colchicine Tab) 0.6 mg BID PO 02/27/16 09:00 03/28/16 08:59 02/27/16 09:15 0.6 MG Aspirin (Ecotrin Tab) 325 mg BID PO 02/27/16 09:00 03/28/16 08:59 02/27/16 09:15 325 MG Impression (1) ESRD on hemodialysis (2) Encounter for hemodialysis for ESRD (3) Renal transplant, status post (4) Hypertension (5) Hyperkalemia Patient was admitted with pleuritic chest pain. Evaluation notable for pericardial and pleural effusion. 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 Prior negative evaluation for hepatitis C and SLE per report. donor kidney transplant resulted in early allograft failure due to recurrent MPGN. He is maintained on Prograf. He is on TTS HD at [facility]. He completed a full dialysis treatment yesterday without complications. Net UF yesterday 1 kg to EDW of 55.5 kg. Etiology of chest pain and headaches remain unclear. Fevers and non specific inflammatory markers have been present. Primary working diagnosis remains a viral pericarditis. Hypotension improving with fluid boluses. Repeat echocardiogram demonstrates enlarging pericardial effusion. Dr. Miguel highlighted concerns due to enlargement of the aortic root. Recommendations ESRD: -- HD TTS -- Rx: 180 optiflux, Qb 400 via AVF, 2K, EDW 58.5 kg -- MPGN can be associated with a variety of immune and connective tissue conditions but clinical presentation does not suggest a specific etiology and reported prior evaluation negative Given concerns regarding hemodynamic instability and large pericardial effusion with enlarged aortic root and potential acute needs that may not be possible at [facility] transfer to a tertiary facility seems most suitable.
[2016-02-27] MEDS: PANTOprazole INJ 40 MG in SYRINGE 0 ML IV SCH (11:49)
--- NOTE | 2016-02-27 11:49 | CARDIOLOGY CONSULTATION ---
DATE OF CONSULTATION: 02/27/2016 TIME: 10:13 a.m. CONSULTING PHYSICIAN: Dr. West. REASON FOR CONSULTATION: Pericardial effusion. HISTORY OF PRESENT ILLNESS: Mr. 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 He apparently was diagnosed at the age of 16 with his renal issues. He was started on dialysis and underwent renal transplantation. Despite undergo renal transplantation, the transplant kidney has failed and he is back on dialysis since July of 2015. He continues to make urine; however, and is still on immunosuppression therapy. His mother states that he underwent pericardiocentesis at the onset of his renal failure and required drain placement for a few days. It does not appear as though any pericardial window was placed. He does not follow up with cardiology chronically and it was felt that the pericardial effusion was related to his renal failure at that time. He has been hospitalized since 02/24/2016 with chest pain and back pain. He has been followed by nephrology and also infectious disease. He was found to have elevated inflammatory markers with elevated ESR, CRP, and also elevated procalcitonin level. This morning, he apparently became hypotensive with systolic blood pressure as low as 79 mmHg. He was also tachycardic with a heart rate charted as high as 112 beats per minute. He was given IV fluids. He states that he was transiently blind and unable to hear during this episode. He believes it lasted approximately 1 minute and feels back to his baseline in those regards. He said he feels terrible. He continues to have chest pain and back pain. It feels as though there is a elsie sticking through his chest. He denies shortness of breath. There is a pleuritic component of his chest discomfort. Otherwise, he does not believe that it is positional. He has been receiving a lidocaine patch and IV morphine for his pain. His last dose of morphine was 4 mg given this morning at approximately 6:00 a.m. Despite these measures, he continues to have chest discomfort. This morning, Dr. West has initiated aspirin 325 mg twice daily, as well as colchicine. He has received 1 dose of both of these medications so far. He reportedly has had some fevers. During this hospitalization his T-max was 38.1 degrees on the day of presentation. He also has some night sweats and feels chills at night at times. He had an episode of vomiting this morning, but otherwise has not had any other nausea. He denies abdominal pain, melena, hematochezia, hematuria, diarrhea. He denies palpitations, syncope or lower extremity edema. He states that he did not miss any dialysis. He receives dialysis 3 days per week and this is coordinated through [facility], with his transplant/renal team. Dialysis occurs every Sunday, and Sunday. REVIEW OF SYSTEMS: As above and otherwise review of systems otherwise negative. PAST MEDICAL HISTORY: 1. Membranous glomerulonephritis and end-stage renal disease diagnosed at the age of 16. 2. Renal transplantation. Continued hemodialysis 3 days per week. 3. Hypertension. 4. Pericardial effusion status post pericardiocentesis and drain placement at the age 16 or 17. 5. Anemia, status post multiple blood transfusions, most recently this past summer of 2015. 6. 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 He has not required any treatment otherwise. HOME MEDICATIONS: Included lisinopril 40 mg daily, metoprolol succinate 50 mg daily, tacrolimus 2 mg b.i.d., clonidine 0.1 mg daily, Sevelamer 3 tablets of 800 mg 3 times daily. INPATIENT MEDICATIONS: Include metoprolol succinate 50 mg twice daily; however, it was held this morning, colchicine 0.6 mg p.o. b.i.d., clonidine 0.1 mg daily, aspirin 325 mg twice daily, heparin 5,000 units subQ q. 12 hours, Protonix 40 mg IV daily, Paxil 20 mg daily, Renagel 2400 mg p.o. t.i.d., tacrolimus 2 mg p.o. b.i.d. ALLERGIES: AMOXICILLIN. SOCIAL HISTORY: Denies tobacco, alcohol or drug abuse. He lives at home with his mom. His mom is present at the bedside. FAMILY HISTORY: No known premature CAD. PHYSICAL EXAMINATION: VITAL SIGNS: Temperature 36.8 degrees, heart rate 105 beats per minute, respiration rate 18, blood pressure 103/67 mmHg, oxygen saturation 92% on room air. I's and O's negative 880 mL yesterday, weight is 55.6 kg. GENERAL: No acute distress; however, he does appear fatigued and ill. He does converse when asked questions. HEENT: Anicteric sclerae. NECK: No appreciable JVD. No bruits. Normal carotid upstrokes bilaterally. CARDIAC EXAMINATION: No ventricular heave. Regular, but tachycardic. Normal S1, S2. No audible murmurs, rubs or gallops. LUNGS: Clear to auscultation bilaterally without wheezes, rales or rhonchi. ABDOMEN: Soft, nontender, nondistended. Normoactive bowel sounds. EXTREMITIES: 2+ radial pulses bilaterally. 2+ dorsalis pedis pulses bilaterally. No cyanosis or edema. No palpable cords. There were no Janeway lesions, Osler nodes, or splinter hemorrhages. PSYCHIATRIC: Affect appears appropriate. LABORATORIES: Sodium 136, potassium 5.2, BUN 20, creatinine 8.3. Procalcitonin 2.15. C-reactive protein 19, magnesium was 2.1 on admission. White blood cell count 11.6, hemoglobin 10.2, platelets 257, ESR 44. INR was 1.1. EN is pending, rheumatoid factor, pending. CMV studies and EBV studies are pending. Blood culture is negative x2. CT angiogram of the chest on presentation was without evidence of acute pulmonary embolism per radiology. There were small bilateral pleural effusions and bibasilar atelectasis. Pericardial effusion was reported. Echocardiogram images were personally reviewed. Echo on 02/25/2016 demonstrated normal LV systolic function with an EF of 55-60%. Normal wall motion. Mild LVH. No significant diastolic dysfunction. Mild AI. Small circumferential pericardial effusion without echocardiographic evidence of tamponade physiology. Mildly dilated aortic root for age adjusted BSA. Mildly dilated ascending aorta. CT angiogram of the chest was personally reviewed. Aorta does appear to be dilated, especially for his age adjusted BSA. The dilated areas appeared to be mostly in the aortic root and proximal ascending aorta. ECG from this morning at 6:04 a.m. demonstrates sinus tachycardia at 102 beats per minute. There is ST elevation consistent with early repolarization versus pericarditis. There may be slight [place] depression. ECG performed on 02/25/2016 at 8:58 a.m. demonstrated similar findings; however, the rate was 92 beats per minute. Presenting ECG on 02/24/2016 at 1436 demonstrates nonspecific T-wave abnormality. There is minor ST elevation as discussed before. This is compared to a prior ECG on 08/01/[address] elevation, and therefore these findings appear to be new. ASSESSMENT AND PLAN: 1. Hypotension and tachycardia: This is more of an acute finding this morning. He did respond to IV fluids. Etiology not completely known at this time. A stat limited echo is being performed to see if his pericardial effusion has significantly enlarged. Also, would consider sepsis as an etiology, especially with his immunocompromised state and elevated procalcitonin levels. Agree with holding beta delma given his hypotension, and he was symptomatic with this. Would consider intensive care unit transfer. 2. Pericardial effusion: Etiology uncertain. It was small in size and therefore would not undergo pericardiocentesis based on imaging done 2 days ago. Repeat imaging is pending as noted above. This was discussed with technical specialist cytogenetics directly so that it will be completed urgently. He did have a pericardial effusion in the past; however, that appeared to be potentially due to his acute renal failure and possibly uremic state. 3. Chest pain: Etiology uncertain. It is concerning for pericarditis, especially with ECG findings. It is also pleuritic in nature. Agree with aspirin and colchicine. Colchicine should be continued for 3 months. Repeat echo imaging pending as above. 4. Dilated ascending aorta: Findings are consistent between echo and CT angiogram. Could consider aortitis, especially with elevated inflammatory markers, low grade fever, and his other constitutional symptoms. This has been discussed with Dr. Mancilla of the hospitalist service. If there are no obvious findings for his symptoms otherwise, have recommended transfer to a tertiary care centers such as [facility] where he is followed for all of his other medical issues. 5. Fever: Infectious Disease is on board. We will defer to Infectious Disease and primary service. He is not on antibiotics at this time. With findings this morning, would be concerned for possible sepsis; however. 6. End-stage renal disease: As per nephrology. 7. Disposition: Highly complex medical issues. Plan of care has been discussed with Dr. Mancilla of the hospitalist service. He is being transferred from the floor soon as per Dr. Mancilla. He is presenting to the bedside currently to assess the situation. Will also discuss with the bench technician so that they are aware of current situation in case they are involved. Would consider transfer to a tertiary care center as noted above. Thank you for allowing me to participate in the care of Mr. Clay. ADDENDUM: Shortly after completing the original note as noted above, echo images were available for review. Pericardial fusion was large, greater than 2 cm in some areas. Please see echo report. There was no cardiac chamber collapse. It was recommended that he be transferred to ICU until he can be Life flighted to another facility. He typically has followed with [facility] in the past. He was agreeable to go to [facility]. Differential diagnosis is broad, but includes aortic dissection with enlarging pericardial effusion, AI, and chest/back pain. It also includes aortitis, pericarditis, other infectious/inflammatory possibilities. After the limited echo was complete, further images were performed approximately 70 minutes later to better evaluate the aortic root. The aortic root remains mildly dilated and within the ascending aorta, there were linear echodensities, raising the concern for possible type a dissection. The pericardial effusion appeared larger on the repeat imaging, greater than 3 cm in some views, most specifically along the RV free wall, toward the apex. Patient remains hemodynamically stable. He continues to have chest pain. Pain control important. His blood pressure is low-normal. IV fluids will be initiated in the form of normal saline. Dilaudid was most recently given for chest discomfort and more can be made available with a goal of making him pain free. Dr. Gary Watts, CCU attending at [facility], was personally contacted to make him aware of presentation and most recent echo imaging. He was made aware of the enlarging pericardial effusion and concern for aortic dissection. He agreed that imaging, such as CTA, should not be done at this facility, so as not to delay transfer. He will make arrangements accordingly at his facility. Dr. Salmeron and Dr. Velazquez have also been updated. Echo images were copied to disc and placed with the chart. 2.5 hours of Critical care time was spent reviewing multiple images, discussing with multiple providers as noted above, coordinating care, counseling patient and his mother. ROSE MARY
--- NOTE | 2016-02-27 12:26 | Progress Note ---
Progress Note 02/27/16 [address] Adalid Hess from cardiology and Dr. Mychal Sesay from nephrology, and in light of repeat echo findings (worsening pericardial effusion , worsening EF, aortic root abnormalities) and low BP this am all parties felt he should be transferred to a tertiary care center. Patient has established relationship with [facility] in [place]. Call placed to Dr. Gary Morgan, CCU attending, who graciously accepted patient in transfer to [facility]. Patient transferred to ICU for monitoring until he can transfer to [facility]. mother aware of impending transfer. I spoke again with Dr. Hess re: his repeat echo and I asked him to speak directly with Dr. Morgan at [facility] to discuss the new echo findings. Sachin JACOBSON MD
[2016-02-27] MEDS ORDERED: HYDROmorphone INJ 1 MG/ML SYR IV ONE (12:45)
--- NOTE | 2016-02-27 12:57 | ECHOCARDIOGRAM REPORT ---
*NOTICE TO RECEIVING DEMOCRAT AGENCY This information is strictly Confidential and protected under [place] law. [place] law prohibits you from making any further disclosure of this information unless further disclosure is expressly permitted by the written consent of the person to whom it pertains or is authorized by law. A general authorization for the release of medical or other information is not sufficient for this purpose. Hospital accepts no responsibility if the information is made available to any other person, INCLUDING THE PATIENT. Interpretation Summary * Name: ENRICO PEREZ Study Date: 02/27/2016 11:18 AM BP: 106/75 mmHg * Patient Location: [facility] HR: 107 * : 1995 (M/d/yyyy) Gender: Male Height: 67 in * Age: 20 yrs Ethnicity: CA Weight: 122 lb * Ordering Physician: Anant Hess MD * Performed By: Lacy Miner RDCS * * Reason For Study: Pericardial Effusion * BSA: 1.6 m2 * -- Conclusions -- * 1. Normal left ventricular size with mildly to moderately reduced systolic function. EF 40-45%. Global hypokinesis. Mild to moderate concentric left ventricular hypertrophy. * 2. Normal right ventricular size with mildly reduced systolic function visually. * 3. Large circumferential pericardial effusion, measuring greater than 2 cm, anteriorly, laterally, and apically. There is no evidence of cardiac chamber collapse on echo. Approximately 70 min after intial images, pericardial effusion now appears greater than 3 cm anterior to right ventricle. * 4. Mildly dilated ascending aorta and aortic root. * 5. Linear echogenic finding that appears to transect the proximal ascending aorta. There are also other linear findings within the ascending aorta, which raises the suspicion of aortic dissection. Recommend further imaging to better define. * 6. Mild aortic regurgitation. * 7. Limited 2D echo with limited color and spectral Doppler. * 8. Compared to prior study on 02/25/2016, pericardial effusion is now large and biventricular systolic function has decreased. There is concern for possible Type A aortic dissection. This was discussed with Dr. Velazquez, Dr. Salmeron, and Dr. Watts ([facility] CCU attending). Further imaging/evaluation will be done there, so as not to delay transfer. Procedure Details * Limited views were obtained. Left Ventricle * Normal left ventricular size with mildly to moderately reduced systolic function. EF 40-45%. Global hypokinesis. Mild to moderate concentric left ventricular hypertrophy. Right Ventricle * Normal right ventricular size with mildly reduced systolic function visually. Atria * The left atrial size is normal. * Right atrial size is normal. Mitral Valve * Mitral valve appears structurally normal. * There is no mitral valve stenosis. Tricuspid Valve * Tricuspid valve appears structurally normal. * There is no tricuspid stenosis. Aortic Valve * The aortic valve is trileaflet. * No hemodynamically significant valvular aortic stenosis. * Mild aortic regurgitation. Pulmonic Valve * The pulmonic valve is not well visualized. Great Vessels * Mildly dilated ascending aorta and aortic root. linear echogenic finding that appears to transect the proximal ascending aorta. There are also other linear findings within the ascending aorta, which raises the suspicion of aortic dissection. Recommend further imaging to better define. Pericardium/Pleural * Large circumferential pericardial effusion, measuring greater than 2 cm, anteriorly, laterally, and apically. There is no evidence of cardiac chamber collapse on echo. Approximately 70 min after intial images, pericardial effusion now appears greater than 3 cm anterior to right ventricle. Great Vessels * Mildly dilated IVC. MMode 2D Measurements and Calculations IVSd 1.3 cm IVSs 1.5 cm LVIDd 3.4 cm LVIDs 2.7 cm LVPWd 1.4 cm LVPWs 1.8 cm IVS/LVPW 0.96 FS 20.7 % EDV(Teich) 47.0 ml ESV(Teich) 26.6 ml EF(Teich) 43.3 % EDV(cubed) 38.8 ml ESV(cubed) 19.4 ml EF(cubed) 50.2 % % IVS thick 10.7 % % LVPW thick 29.4 % LV mass(C)d 160.5 grams LV mass(C)dI 97.9 grams/m\S\2 LV mass(C)s 163.4 grams LV mass(C)sI 99.7 grams/m\S\2 SV(Teich) 20.3 ml SI(Teich) 12.4 ml/m\S\2 SV(cubed) 19.5 ml SI(cubed) 11.9 ml/m\S\2 Ao root diam 4.2 cm Ao root area 13.6 cm\S\2 asc Aorta Diam 4.0 cm LVAd ap4 28.9 cm\S\2 LVLd ap4 9.2 cm EDV(MOD-sp4) 78.0 ml EDV(sp4-el) 77.4 ml LVAs ap4 21.0 cm\S\2 LVLs ap4 8.9 cm ESV(MOD-sp4) 44.9 ml ESV(sp4-el) 42.4 ml EF(MOD-sp4) 42.5 % EF(sp4-el) 45.3 % LVAd ap2 31.3 cm\S\2 LVLd ap2 9.3 cm EDV(MOD-sp2) 92.8 ml EDV(sp2-el) 90.6 ml LVAs ap2 21.4 cm\S\2 LVLs ap2 7.8 cm ESV(MOD-sp2) 50.5 ml ESV(sp2-el) 49.6 ml EF(MOD-sp2) 45.5 % EF(sp2-el) 45.3 % LVLd %diff 2.0 % EDV(MOD-bp) 95.6 ml LVLs %diff -16.53 % ESV(MOD-bp) 49.8 ml EF(MOD-bp) 47.9 % SV(MOD-sp4) 33.1 ml SI(MOD-sp4) 20.2 ml/m\S\2 SV(MOD-sp2) 42.2 ml SI(MOD-sp2) 25.8 ml/m\S\2 SV(MOD-bp) 45.7 ml SI(MOD-bp) 27.9 ml/m\S\2 SV(sp4-el) 35.1 ml SI(sp4-el) 21.4 ml/m\S\2 SV(sp2-el) 41.1 ml SI(sp2-el) 25.1 ml/m\S\2
--- NOTE | 2016-02-27 13:01 | Discharge Summary ---
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 echocardiogram #1 - 02/25/16 - * -- Conclusions -- * 1. Normal left ventricular size and systolic function. EF 55-60%. No regional wall motion abnormalities. Mild concentric left ventricular hypertrophy. No significant diastolic dysfunction. * 2. Mild aortic regurgitation. * 3. Small circumferential pericardial effusion without echocardiographic evidence of tamponade physiology. * 4. Mildly dilated aortic root for age adjusted BSA. Mildly dilated ascending aorta. * 5. Compared to prior study on 02/20/2014, pericardial effusion is now present. 2. echocardiogram #2 - 02/27/16 - -- Conclusions -- * 1. Normal left ventricular size with mildly to moderately reduced systolic function. EF 40-45%. Global hypokinesis. Mild to moderate concentric left ventricular hypertrophy. * 2. Normal right ventricular size with mildly reduced systolic function visually. * 3. Large circumferential pericardial effusion, measuring greater than 2 cm , anteriorly, laterally, and apically. There is no evidence of cardiac chamber collapse on echo. Approximately 70 min after intial images, pericardial effusion now appears greater than 3 cm anterior to right ventricle. * 4. Mildly dilated ascending aorta and aortic root. * 5. Linear echogenic finding that appears to transect the proximal ascending aorta. There are also other linear findings within the ascending aorta , which raises the suspicion of aortic dissection. Recommend further imaging to better define. * 6. Mild aortic regurgitation. * 7. Limited 2D echo with limited color and spectral Doppler. * 8. Compared to prior study on 02/25/2016, pericardial effusion is now large and biventricular systolic function has decreased. There is concern for possible Type A aortic dissection. This was discussed with Dr. Velazquez, Dr. Salmeron, and Dr. Watts ([facility] CCU attending). Further imaging/evaluation will be done there, so as not to delay transfer. 3. CTA chest - IMPRESSION: 1. No evidence of acute pulmonary embolism 2. Small bilateral pleural effusions and bibasilar atelectasis 3. Cardiomegaly. Pericardial effusion. (Familia Mancilla MD) Discharge Exam Review of Systems: Constitutional: + fatigue, + problem reported (Headache), No chills, No fever Respiratory: + shortness of breath (occasional), No cough Cardiovascular: + chest pain, No palpitations Abdomen: + nausea, + vomiting, No pain Endocrine: + fatigue Physical Exam: General Appearance: + moderate distress Eyes: normal inspection, PERRL Neck: supple, no JVD Respiratory/Chest: chest non-tender, lungs clear, normal breath sounds, no respiratory distress, no accessory muscle use Cardiovascular: regular rate, rhythm, no edema, no murmur, normal peripheral pulses Abdomen / GI: normal bowel sounds, non tender, soft, + pertinent finding ( transplanted kidney palpable in adbdomen) Extremities: no calf tenderness, no pedal edema Neurologic/Psychiatric: alert, oriented x 3 Skin: normal color (Saud Odonnell MD) Hospital Course This is a 20 yo M w/ hx of 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 Palma) who presented to [facility] ED on 02/23 with progressive pleuritic central Chest pain worse on inspiration that radiated to to the back in the scapular region. Pain started hours after patient had received dialysis on . On presentation he, was afebrile, VSS CT was negative for PE and showed no sign of aortic dissection, pneumonia, pnx. BY the 02/23, He had developed a fever of 38.1 which resolved by the next day. Echocardiogram was administered 02/24 showing a mild pericardial effusion and a dilated aortic root at 4.2 cm. Patient's symptoms of chest pain/back pain worsened throughout stay and by 02/26 complained of greater than 10/10 pain in both regions despite previous administration of morphine ,oxycodone, and lidocaine patch . 02/25 overnight, pt received colchicine and ASA for presumed Pericarditis. On the morning of 02/26 ,pt experienced drop in BP down to 79/47 and tachycardia 102-112. Previous day BP was in systolic in 150's to 170's/ 90's to 100's. He was given 2- 250 cc boluses of NS and his BP responded and stabilized. Pt also developed new-onset leukocytosis on 02/26 and notably fullfilled SIRS criteria. Repeat Echo was done 02/26 which showed increased size of pericardial effusion. By this point after consultation with Cardiology, Nephrology , Chest pain ,along with recently unstable vitals were still of undertermined etiology though Pericarditis,Pericardial effusion/tamponande, Sepsis, Aortitis, Connective tissue disease were considered. It was concluded that the patient would benefit being transferred to another facility for further management. Pt was transferred on 02/26 to CCU at [facility] under the care of [facility], Dr. Gary Morgan. This includes examination of the patient, discharge planning, medication reconciliation, and communication with other providers. (Saud Odonnell .MD) Resident Physician Supervision Note: I was present with PGY1 Dr. Saud Odonnell during the discharge history and exam. I discussed the case with the resident and agree with the findings and plan as documented in this discharge summary. Any exceptions or clarifications are listed here: none. 20yo male with ESRD, on HD //Sun, with h/o failed renal transplant ( had received such due to membranous nephropathy). who presented on 02/24/16 with several days of chest pain radiating to the mid upper back. The chest pain was pleuritic in nature. He also had low-grade fevers pre-hospital and during this hospital stay. CTA chest at time of admission showed a small pericardial effusion but no PE. ECHO done on 02/25/16 also showed a small pericardial effusion but no evidence of tamponade. Sed rate and CRP were both elevated. Despite normal EKGs there was clinical suspicion of pericarditis and he was started on colchicine BID and aspirin BID. Despite such he continued with severe pleuritic chest discomfort and low-grade fevers. Rheumatoid factor and EN were both sent; RF returned markedly positive at a level of 400+. EN was pending at discharge. Blood cultures remained negative while here. He developed transient hypotension on the AM of 02/27/16 responding to fluid boluses. STAT echo done on 02/27/16 showed worsening pericardial effusion and aortic root dilatation with additional aortic abnormalities (see above). The second echocardiogram failed to show any pericardial tamponade. Due to concern of pericarditis +/- aortitis vs aortic dissection he was transferred to our ICU and preparations were made for emergent transfer to [facility] ([facility]) for further evaluation & management. Dr. Gary Lima graciously accepted this patient in transfer to [facility]. Discharge exam - gen - looks sick but nontoxic, awake, alert, oriented x 3 mouth - MMM neck - no JVD heart - tachy, s1, s2, no rub, no murmur lungs - CTA b/l, no rales abd - soft, no HSM, BS+, large scar RLQ with palpable renal transplant ext - no edema, pulses 2+ b/l skin - no rashes musculo - no synovitis of small joints of hands, knees, etc Labs at time of discharge - 02/24/16 14:04 Red Blood Count 3.95, Mean Corpuscular Volume 94.7, Mean Corpuscular Hemoglobin 33.7, Mean Corpuscular Hemoglobin Concent 35.6, Mean Platelet Volume 9.6, Neutrophils (%) (Auto) 65.1, Lymphocytes (%) (Auto) 14.7, Monocytes (%) (Auto) 16.0, Eosinophils (%) (Auto) 3.2, Basophils (%) (Auto) 0.8, Neutrophils # (Auto ) 5.88, Lymphocytes # (Auto) 1.33, Monocytes # (Auto) 1.45, Eosinophils # (Auto ) 0.29, Basophils # (Auto) 0.07 02/25/16 07:17 02/26/16 05:55 Red Blood Count 3.38, Mean Corpuscular Volume 95.9, Mean Corpuscular Hemoglobin 32.2, Mean Corpuscular Hemoglobin Concent 33.6, Mean Platelet Volume 9.5, Neutrophils (%) (Auto) 64.5, Lymphocytes (%) (Auto) 17.5, Monocytes (%) (Auto) 13.1, Eosinophils (%) (Auto) 4.4, Basophils (%) (Auto) 0.4, Neutrophils # (Auto ) 5.45, Lymphocytes # (Auto) 1.48, Monocytes # (Auto) 1.11, Eosinophils # (Auto ) 0.37, Basophils # (Auto) 0.03 02/27/16 08:15 02/24/16 14:04 02/25/16 07:17 02/25/16 17:10 02/26/16 05:55 02/27/16 08:15 Test 02/24/16 14:04 02/24/16 15:20 02/24/16 15:26 02/25/16 07:17 White Blood Count 9.04 K/uL (4.8-10.8) Red Blood Count 3.95 M/uL (4.7-6.1) 3.67 M/uL (4.7-6.1) Hemoglobin 13.3 g/dL (14.0-18.0) Hematocrit 37.4 % (42-52) Mean Corpuscular Volume 94.7 fL (80-100) 96.5 fL (80-100) Mean Corpuscular Hemoglobin 33.7 pg (25-34) 33.8 pg (25-34) Mean Corpuscular Hemoglobin Concent 35.6 g/dl (32-36) 35.0 g/dl (32-36) Platelet Count 234 K/uL (130-400) Mean Platelet Volume 9.6 fL (7.4-10.4) 9.8 fL (7.4-10.4) Neutrophils (%) (Auto) 65.1 % Lymphocytes (%) (Auto) 14.7 % Monocytes (%) (Auto) 16.0 % Eosinophils (%) (Auto) 3.2 % Basophils (%) (Auto) 0.8 % Neutrophils # (Auto) 5.88 K/uL (1.4-6.5) Lymphocytes # (Auto) 1.33 K/uL (1.2-3.4) Monocytes # (Auto) 1.45 K/uL (0.11-0.59) Eosinophils # (Auto) 0.29 K/uL (0-0.5) Basophils # (Auto) 0.07 K/uL (0-0.2) RDW Standard Deviation 48.1 fL (36.4-46.3) 50.1 fL (36.4-46.3) RDW Coefficient of Variation 13.9 % (11.5-14.5) 14.1 % (11.5-14.5) Immature Granulocyte % (Auto) 0.2 % Immature Granulocyte # (Auto) 0.02 K/uL (0.00-0.02) Erythrocyte Sedimentation Rate 44 mm/hr (0-14) Prothrombin Time 11.3 SECONDS (9.0-12.0) Prothromb Time International Ratio 1.1 (0.9-1.1) Activated Partial Thromboplast Time 25.2 SECONDS (21.0-31.0) Partial Thromboplastin Ratio 1.0 Anion Gap 11.0 mmol/L (3-11) 12.0 mmol/L (3-11) Est Creatinine Clear Calc Drug Dose 19.5 ml/min 9.9 ml/min Estimated GFR () 15.4 7.8 Estimated GFR (Non- 13.2 6.7 BUN/Creatinine Ratio 3.1 (10-20) 3.4 (10-20) Calcium Level 10.0 mg/dl (8.5-10.1) 9.5 mg/dl (8.5-10.1) Magnesium Level 2.1 mg/dl (1.8-2.4) Total Bilirubin 0.9 mg/dl (0.2-1) Aspartate Amino Transf (AST/SGOT) 14 U/L (15-37) Alanine Aminotransferase (ALT/SGPT) 15 U/L (12-78) Alkaline Phosphatase 70 U/L (45-117) Total Creatine Kinase 61 U/L (39-308) Creatine Kinase MB < 0.5 ng/ml (0.5-3.6) Creatine Kinase MB Ratio (0-3.0) Troponin I < 0.015 ng/ml (0-0.045) Total Protein 9.1 gm/dl (6.4-8.2) Albumin 4.3 gm/dl (3.4-5.0) Globulin 4.8 gm/dl (2.5-4.0) Albumin/Globulin Ratio 0.9 (0.9-2) Influenza Type A Antigen Neg for Influ A (NEG) Influenza Type B Antigen Neg for Influ B (NEG) Lactic Acid Level 1.0 mmol/L (0.4-2.0) C-Reactive Protein 19.60 mg/dl (0-0.29) Test 02/25/16 09:45 02/25/16 17:10 02/26/16 05:55 02/26/16 16:37 Procalcitonin 1.99 ng/mL (0-0.5) 2.15 ng/mL (0-0.5) Anion Gap 9.0 mmol/L (3-11) 12.0 mmol/L (3-11) Est Creatinine Clear Calc Drug Dose 20.2 ml/min 11.8 ml/min Estimated GFR () 17.6 10.0 Estimated GFR (Non- 15.2 8.7 BUN/Creatinine Ratio 2.1 (10-20) 2.3 (10-20) Calcium Level 8.7 mg/dl (8.5-10.1) 9.6 mg/dl (8.5-10.1) White Blood Count 8.45 K/uL (4.8-10.8) Red Blood Count 3.38 M/uL (4.7-6.1) Hemoglobin 10.9 g/dL (14.0-18.0) Hematocrit 32.4 % (42-52) Mean Corpuscular Volume 95.9 fL (80-100) Mean Corpuscular Hemoglobin 32.2 pg (25-34) Mean Corpuscular Hemoglobin Concent 33.6 g/dl (32-36) Platelet Count 223 K/uL (130-400) Mean Platelet Volume 9.5 fL (7.4-10.4) Neutrophils (%) (Auto) 64.5 % Lymphocytes (%) (Auto) 17.5 % Monocytes (%) (Auto) 13.1 % Eosinophils (%) (Auto) 4.4 % Basophils (%) (Auto) 0.4 % Neutrophils # (Auto) 5.45 K/uL (1.4-6.5) Lymphocytes # (Auto) 1.48 K/uL (1.2-3.4) Monocytes # (Auto) 1.11 K/uL (0.11-0.59) Eosinophils # (Auto) 0.37 K/uL (0-0.5) Basophils # (Auto) 0.03 K/uL (0-0.2) RDW Standard Deviation 48.9 fL (36.4-46.3) RDW Coefficient of Variation 14.0 % (11.5-14.5) Immature Granulocyte % (Auto) 0.1 % Immature Granulocyte # (Auto) 0.01 K/uL (0.00-0.02) C-Reactive Protein 19.00 mg/dl (0-0.29) Test 02/27/16 08:15 Red Blood Count 3.15 M/uL (4.7-6.1) Mean Corpuscular Volume 94.9 fL (80-100) Mean Corpuscular Hemoglobin 32.4 pg (25-34) Mean Corpuscular Hemoglobin Concent 34.1 g/dl (32-36) RDW Standard Deviation 48.3 fL (36.4-46.3) RDW Coefficient of Variation 13.8 % (11.5-14.5) Mean Platelet Volume 9.4 fL (7.4-10.4) Anion Gap 11.0 mmol/L (3-11) Est Creatinine Clear Calc Drug Dose 11.3 ml/min Estimated GFR () 9.7 Estimated GFR (Non- 8.4 BUN/Creatinine Ratio 2.4 (10-20) Calcium Level 9.5 mg/dl (8.5-10.1) Rheumatoid Factor 457.0 U/mL (0-15) Date/Time Source Procedure Growth Status 02/24/16 20:07 Blood Blood Culture - Preliminary NO GROWTH TO DATE. Resulted Discharge meds - Current Inpatient Medications Medications (Trade) Dose Ordered Sig/Moises Route Start Time Stop Time Status Last Admin Dose Admin Acetaminophen (Tylenol Tab) 650 mg Q4H PRN PO 02/24/16 20:00 03/25/16 19:59 02/25/16 18:14 650 MG Ondansetron HCl 4 mg 4 mg Q6H PRN IV 02/24/16 20:00 03/25/16 19:59 02/27/16 06:39 4 MG Pantoprazole Sodium/Syringe (Protonix Inj/ Syringe) 10 ml @ 5 mls/min DAILY@11 IV 02/25/16 11:00 03/26/16 10:59 02/27/16 11:49 5 MLS/MIN Ioversol (Optiray 320) 111 ml UD PRN IV 02/24/16 20:00 02/28/16 19:59 Clonidine HCl (Catapres Tab) 0.1 mg DAILY PO 02/25/16 08:00 03/26/16 08:59 02/26/16 10:38 0.1 MG Sevelamer HCl (Renagel Tab) 2,400 mg TID PO 02/24/16 21:00 03/25/16 20:59 02/26/16 21:08 2,400 MG Oxycodone HCl (Roxicodone Immediate Rel Tab) 10 mg Q6 PRN PO 02/24/16 20:15 03/09/16 20:14 02/26/16 19:17 10 MG Tacrolimus (Prograf Cap) 2 mg BID PO 02/24/16 20:00 03/25/16 19:59 02/27/16 09:14 2 MG Morphine Sulfate (MoRPHine SULFATE INJ) 2 mg Q2H PRN IV 02/25/16 10:15 03/10/16 10:14 02/26/16 06:09 2 MG Morphine Sulfate (MoRPHine SULFATE INJ) 4 mg Q2H PRN IV 02/25/16 10:15 03/10/16 10:14 02/27/16 05:56 4 MG Paroxetine HCl (pAXil TAB) 20 mg QAM PO 02/26/16 08:00 03/27/16 07:59 02/27/16 09:10 20 MG Diphenhydramine HCl (Benadryl Inj) 25 mg Q4H PRN IV 02/25/16 13:00 03/26/16 12:59 02/26/16 08:30 25 MG Lidocaine (Lidoderm Patch 5%) 1 patch QAM TD 02/27/16 09:00 03/28/16 08:59 02/27/16 09:17 1 PATCH Miscellaneous (Remove Lidoderm Patch) 1 ea DAILY@21 N/A 02/26/16 21:00 03/27/16 20:59 02/26/16 21:09 1 EA Metoprolol Succinate (Toprol Xl Tab) 50 mg BID PO 02/26/16 21:00 03/27/16 20:59 02/26/16 21:08 50 MG Colchicine (Colchicine Tab) 0.6 mg BID PO 02/27/16 09:00 03/28/16 08:59 02/27/16 09:15 0.6 MG Aspirin (Ecotrin Tab) 325 mg BID PO 02/27/16 09:00 03/28/16 08:59 02/27/16 09:15 325 MG I would like to thank the cardiac team at [facility] for accepting this patient for ongoing care. Documented By: Familia Mancilla MD Total Time Spent: Greater than 30 minutes (Familia Mancilla MD) Discharge Instructions Please refer to the electronic Patient Visit Report (Discharge Instructions) for additional information. (Saud Odonnell MD) Resident Tracking Resident Involvement: Resident Care Provided (Saud Odonnell MD)
--- NOTE | 2016-02-27 13:11 | Cardiology Follow-Up ---
Cardiology Follow-Up Greater than 150 min critical care time spent coordinating care, counseling patient and family, reviewing images, discussing with other providers, etc.
--- NOTE | 2016-02-27 13:21 | Progress Note ---
Progress Note 02/27/16 1320 Called and spoke with transfer center at [facility] in [place]. ICU bed was confirmed; helicopter transportation to be set up STAT. total critical care time today including preparations for transfer, updating family, speaking with multiple consultants, reviewing data, etc - 90 minutes Sachin JACOBSON MD
--- NOTE | 2016-02-27 15:18 | CRITICAL CARE CONSULTATION ---
DATE OF CONSULTATION: 02/27/2016 CHIEF COMPLAINT: Chest pain. 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 He has a history of end-stage renal disease and underwent renal transplant when he was 18 years old and about 7-8 months ago started to require dialysis again. He presented to the Emergency Department on February 23 with complaints of chest pain, which radiated to his back and which has been getting worse for the previous 2 days. It was midsternal and went to the mid scapula. He came into the Emergency Department after having hemodialysis as an outpatient. He was also complaining of chills. He underwent CT angiogram to rule out PE and it was negative for PE. He had an echocardiogram done on February 24, which showed normal left ventricular size and systolic function, ejection fraction 55-60%, no regional wall motion abnormalities, mild concentric left ventricular hypertrophy, mild aortic regurgitation, small circumferential pericardial effusion without echocardiographic evidence of tamponade, mildly dilated aortic root for age adjusted BSA, mildly dilated ascending aorta. He was treated with aspirin, colchicine, diazepam and was placed on Lopressor. This morning around 5:30, he had an episode of severe chest pain and felt dizzy. He was given some Lopressor and morphine. He has had Dilaudid several times since then. The cardiology service was consulted and Dr. Hess reviewed his CT scan and obtained some further echocardiographic images. He was concerned about the size of the aortic root and found that the pericardial effusion was larger than it had been 2 days ago. There was also a linear echogenic finding that appeared to transect the proximal descending aorta. There were also other linear findings within the ascending aorta raising the suspicion of aortic dissection. The patient was transferred to the intensive care unit in preparation for [facility] transportation to [facility]. When I saw him, he complained of 10/10 chest pain but had just been talking on the phone. He looked pale and tired. His chest pain was pleuritic in nature. He had 0.75 mg of Dilaudid total without any relief whatsoever. PAST MEDICAL HISTORY: Membranous glomerulonephritis, hypertension, pericardial effusion, anemia, steroid-induced diabetes mellitus. PAST SURGICAL HISTORY: Status post renal transplant. ALLERGIES: AMOXICILLIN. MEDICATIONS: Reviewed. They are as documented in the chart. SOCIAL HISTORY: He lives with his mother and does not drink or smoke. FAMILY HISTORY: Significant for cancer and hypertension. REVIEW OF SYSTEMS: He reports fatigue, headache, thirst, some nausea this morning and emesis x1, shortness of breath due to his pain, back pain is unchanged. He denies abdominal pain. PHYSICAL EXAMINATION: GENERAL: This is a tall, thin, pale young man lying in bed in mild distress. VITAL SIGNS: As follows: Temperature 36.8, heart rate 102, respiratory rate 20, blood pressure 106/75, oxygen saturation 98% on room air. HEENT: Pupils are equally round and reactive to light. He wears glasses. Oral mucosa is a little dry and pale. NECK: Veins flat, no bruits. LUNGS: Clear to auscultation bilaterally with moderate inspiratory effort secondary to pain. HEART: Tachycardic, regular, no murmurs. ABDOMEN: Flat, soft, nondistended, nontender. EXTREMITIES: Warm. No edema. Posterior tibial pulses are 2+ bilaterally. Radial pulses are 2+ bilaterally. NEUROLOGIC: He is awake, alert and follows commands. LABORATORY DATA: White blood cell count 11.6, hemoglobin 10.2, hematocrit 29.9, platelets 257. Sodium 136, potassium 5.2, chloride 100, CO2 25, BUN 20, creatinine 8.3. C-reactive protein 19. Procalcitonin 2.15. Lactic acid 1. PT, PTT, INR within normal limits. Rheumatoid factor 457. EN pending. Influenza swab negative for influenza A and B. IMAGING DATA: CT of the chest and thorax done February 23 shows no evidence of acute pulmonary embolism, small bilateral pleural effusions and bibasilar atelectasis as well as cardiomegaly and pericardial effusion. IMPRESSION: 1. Chest pain radiating to the back with enlarged root and concern for aortic dissection. 2. History of membranous glomerulonephritis and end-stage renal disease status post renal transplant and on dialysis for the past 7-8 months. 3. History of hypertension. When I saw him, he was borderline hypotensive. 4. Pericardial effusion, which is enlarging. 5. Anemia, no signs of acute blood loss. PLAN: 1. I gave him several small doses of Dilaudid for his pain. 2. Watch blood pressure carefully. If he were to become hypertensive, use labetalol or esmolol, to control his pressure. 3. He was typed and crossed. 4. Obtain adequate IV access. 5. Arrangements were made for him to transfer to [facility], which occurred before this dictation was complete. Please call me with any questions or concerns.
[2016-03-01 23:41] LABS: CMV DNA PCR QUANT SOURCE Whole Blood; CMV DNA QN REAL TIME PCR <200 IU/mL (<200); EBV DNA QUANT PCR 1825 copies/mL (<200); EBV DNA QUANT SOURCE Whole Blood; EPSTEIN BARR VIR CAPSID IGG 4.41 INDEX
[2016-05-15] MEDS ORDERED: LISI40TA PO (06:50)
== END 2016-02-27 14:36 | disposition short-term general hospital (02) | DRG 314 ==
LOC: ENRESERVTM → ENRESERVDT → EDBD 14:28 → C.EDC 14:28 → C.MS4W 19:49 → EDBEDREQ 02-25 09:51 → C.2T 02-25 11:04 → C.MS2W 02-26 18:27 → C.MED 02-27 09:01 → C.MSICU 02-27 12:05
PROVIDERS: ADMIT Internal Medicine; ATTEND Internal Medicine
DX: I31.3 Pericardial effusion (noninflammatory) (principal); N18.6 End stage renal disease; I12.0 Hypertensive chronic kidney disease with stage 5 chronic kidney disease or end stage renal disease; Z94.0 Kidney transplant status; E87.5 Hyperkalemia; Z99.2 Dependence on renal dialysis; F32.9 Major depressive disorder, single episode, unspecified; D64.9 Anemia, unspecified; I35.1 Nonrheumatic aortic (valve) insufficiency

== ENCOUNTER 2016-05-15 11:53 | Emergency (ER) | payer OTHER ==
[~2016-05-15] VITALS: Ht 170.2 cm; Wt 54.0 kg
[~2016-05-15 11:53] MED LIST changes: +LISI40TA PO; -PARO20TA4 PO
[2016-05-15 12:06] VITALS: TEMP 36.9; Ht 170.2 cm; Wt 54.0 kg
[2016-05-15] MEDS ORDERED: TEMA15CA4 PO (13:00)
[2016-05-15] MEDS ORDERED: TRAM-10 PO (13:00)
[2016-05-15] MEDS ORDERED: WARF-284 PO (13:00)
[2016-05-15] MEDS ORDERED: CARV25TA PO (13:00)
[2016-05-15] MEDS ORDERED: LABETALOL HCL IV 5 MG/ML 20ML IV STA ×4 (13:03→16:10)
[2016-05-15] MEDS ORDERED: SODIUM CHLORIDE 0.9% 1000ML 1,000 ML IV STA (13:03)
[2016-05-15] MEDS ORDERED: ONDANSETRON INJ 2 MG/ML 2 ML VIAL IV STA (13:03)
--- NOTE | 2016-05-15 13:16 | EMERGENCY ROOM VISIT NOTE ---
History Report prepared by Anthony: Chandu Remy Under the Supervision of: Dr. Jeferson Rawls M.D. First contact with patient: 12:57 Chief Complaint: VOMITING Stated Complaint: VOMITING,WEAKNESS History of Present Illness The patient is a 21 year old male who presents to the Emergency Room with complaints of episodes of vomiting that started yesterday. The patient has a history of a kidney transplant, repair of an aortic aneurysm, ECMO (for 11 days) , cardiac tamponade, wound debridement, tracheostomy, and bronchoscopy. Per the patient's mother, the patient has been feeling weak and nauseous. The patient' s blood pressure is also high. He has been having episodes of diarrhea as well and he cannot keep any of his pills down. The patient was in a hospital over in [place] for 79 days recently for an aortic dissection from high blood pressure. The patient had to have his leg dissected, and he had jaundice from the dissection. He was discharged 5 days ago. The patient is on blood thinners. He denies any chest pain, coughing, hematochezia, abdominal pain, urinary burning,or any new pains. He is on dialysis from his fistula. Source of History: patient, parent Onset: Yesterday Position: other (vomiting) Timing: other (episodes) Associated Symptoms: + diarrhea, + nausea, + weakness, No abdominal pain, No chest pain, No cough, No hematochezia, No urinary symptoms Note: Associated symptoms: Denies any new pains. Review of Systems See HPI for pertinent positives & negatives. A total of 10 systems reviewed and were otherwise negative. Past Medical & Surgical Medical Problems: (1) Chest pain (2) Chronic renal failure syndrome (3) Encounter for hemodialysis for ESRD (4) ESRD on hemodialysis (5) History of - hypertension (6) Hyperkalemia (7) Hypertension Surgical Problems: (1) Aortic dissection (2) Renal transplant, status post Family History Cancer Hypertension Social History Smoking Status: Never Smoker Alcohol Use: none Drug Use: none Marital Status: single Housing Status: lives with family Occupation Status: student Current/Historical Medications Scheduled Carvedilol (Coreg), 25 MG PO BID Lisinopril (Zestril), 40 MG PO HS Temazepam (Restoril), 15 MG PO HS Warfarin Sodium (Warfarin Sodium), 7.5 MG PO DAILY Scheduled PRN Tramadol (Ultram), 50 MG PO Q12H PRN for Pain Allergies Coded Allergies: Amoxicillin (Verified Allergy, Unknown, ?, 05/15/16) Physical Exam Vital Signs Date Time Temp Pulse Resp B/P Pulse Ox O2 Delivery O2 Flow Rate FiO2 05/15/16 17:30 105 20 138/95 97 05/15/16 17:00 103 133/100 05/15/16 16:42 129/99 05/15/16 16:30 102 140/105 98 05/15/16 16:25 103 22 138/102 98 05/15/16 16:17 103 20 143/106 99 05/15/16 16:00 101 141/108 98 05/15/16 15:53 107 22 145/109 98 05/15/16 15:45 106 144/112 99 05/15/16 15:25 104 143/108 99 05/15/16 14:56 105 151/109 97 05/15/16 14:30 101 137/103 05/15/16 14:22 102 20 134/102 95 05/15/16 14:11 105 22 141/108 97 Room Air 05/15/16 13:41 102 05/15/16 13:35 142/103 05/15/16 13:24 125 18 156/117 97 Room Air 05/15/16 12:06 36.9 122 20 153/112 100 Room Air Physical Exam GENERAL: Patient is ill and unwell appearing, in mild distress. Severe cachexia and wasting. Noncooperative and not interested with history and physical. Dehydrated. HEENT: No acute trauma, normocephalic atraumatic, mucous membranes moist, no nasal congestion, no scleral icterus. NECK: No stridor, no adenopathy, no meningismus, trachea is midline. LUNGS: No dyspnea. Clear to auscultation and equal bilaterally. No wheeze, no rhonchi. HEART: Tachycardic rate and regular rhythm. No murmurs, rubs, gallops appreciated. ABDOMEN: Soft, nontender, bowel sounds positive, no masses appreciated, no peritonitis. BACK: No midline tenderness, no CVA tenderness EXTREMITIES: Normal motion all extremities, no cyanosis, no edema. Fistula in left arm. NEUROLOGIC: Alert and oriented, no acute motor or sensory deficits, no focal weakness, cranial nerves grossly intact. SKIN: Extensive scarring over chest, neck, arms. Well-healing sternotomy scar with associated port scars, healing tracheostomy scar. Medical Decision & Procedures ER Provider Diagnostic Interpretation: X ray results are stated below per my interpretation and the radiologist's interpretation. CHEST ONE VIEW PORTABLE HISTORY: vomiting, weakness, hypertension COMPARISON: Chest 02/24/2016. FINDINGS: No pneumothorax. Postoperative changes. Cartilage has increased in size. There are small bilateral pleural effusions. Focal density to the periphery of the right midlung zone may represent a loculated component of the right pleural effusion. There are also hazy bilateral mid to lower lung zone airspace opacities. IMPRESSION: Small bilateral pleural effusions, right greater than left. There are also hazy bilateral mid to lower lung zone airspace opacities. This may represent atelectasis or pneumonia. Electronically signed by: Erickson Martines M.D. 05/15/2016 1:54 PM Dictated Date/Time: 05/15/2016 1:53 PM Laboratory Results 05/15/16 13:15 Red Blood Count 3.34, Mean Corpuscular Volume 86.8, Mean Corpuscular Hemoglobin 27.5, Mean Corpuscular Hemoglobin Concent 31.7, Mean Platelet Volume 8.9, Neutrophils (%) (Auto) 72.8, Lymphocytes (%) (Auto) 16.9, Monocytes (%) (Auto) 7.7, Eosinophils (%) (Auto) 1.0, Basophils (%) (Auto) 1.1, Neutrophils # (Auto) 13.57, Lymphocytes # (Auto) 3.14, Monocytes # (Auto) 1.43, Eosinophils # (Auto) 0.19, Basophils # (Auto) 0.20 05/15/16 13:15 Test 05/15/16 13:15 05/15/16 15:15 05/15/16 15:17 White Blood Count 18.62 K/uL (4.8-10.8) Red Blood Count 3.34 M/uL (4.7-6.1) Hemoglobin 9.2 g/dL (14.0-18.0) Hematocrit 29.0 % (42-52) Mean Corpuscular Volume 86.8 fL (80-100) Mean Corpuscular Hemoglobin 27.5 pg (25-34) Mean Corpuscular Hemoglobin Concent 31.7 g/dl (32-36) Platelet Count 568 K/uL (130-400) Mean Platelet Volume 8.9 fL (7.4-10.4) Neutrophils (%) (Auto) 72.8 % Lymphocytes (%) (Auto) 16.9 % Monocytes (%) (Auto) 7.7 % Eosinophils (%) (Auto) 1.0 % Basophils (%) (Auto) 1.1 % Neutrophils # (Auto) 13.57 K/uL (1.4-6.5) Lymphocytes # (Auto) 3.14 K/uL (1.2-3.4) Monocytes # (Auto) 1.43 K/uL (0.11-0.59) Eosinophils # (Auto) 0.19 K/uL (0-0.5) Basophils # (Auto) 0.20 K/uL (0-0.2) RDW Standard Deviation 55.0 fL (36.4-46.3) RDW Coefficient of Variation 17.8 % (11.5-14.5) Immature Granulocyte % (Auto) 0.5 % Immature Granulocyte # (Auto) 0.09 K/uL (0.00-0.02) Prothrombin Time 58.9 SECONDS (9.0-12.0) Prothromb Time International Ratio 5.1 (0.9-1.1) Activated Partial Thromboplast Time 37.1 SECONDS (21.0-31.0) Partial Thromboplastin Ratio 1.4 Estimated GFR () 13.0 Estimated GFR (Non- 11.2 BUN/Creatinine Ratio 7.3 (10-20) Calcium Level 9.6 mg/dl (8.5-10.1) Magnesium Level 2.5 mg/dl (1.8-2.4) Total Bilirubin 0.9 mg/dl (0.2-1) Direct Bilirubin mg/dl (0-0.2) Aspartate Amino Transf (AST/SGOT) 27 U/L (15-37) Alanine Aminotransferase (ALT/SGPT) 33 U/L (12-78) Alkaline Phosphatase 149 U/L (45-117) Total Creatine Kinase 42 U/L (39-308) Creatine Kinase MB 1.9 ng/ml (0.5-3.6) Creatine Kinase MB Ratio 4.5 (0-3.0) Troponin I 0.019 ng/ml (0-0.045) Total Protein 7.8 gm/dl (6.4-8.2) Albumin 2.7 gm/dl (3.4-5.0) Lipase 72 U/L (73-393) Chemistry Specimen Hemolysis Bedside Hemoglobin 9.5 g/dl (14.0-18.0) Bedside Hematocrit 28 % (42-52) Bedside Sodium 136 mEq/L (135-144) Bedside Potassium 6.3 mEq/L (3.3-5.0) Bedside Chloride 103 mEq/L (101-112) Bedside Total CO2 23 mEq/l (24-31) Anion Gap 18.0 mmol/L (16-25) Bedside Blood Urea Nitrogen 44 mg/dl (7-18) Bedside Creatinine 6.0 mg/dl Bedside Glucose (other) 100 mg/dl (70-99) Bedside Ionized Calcium (Haider) 1.10 mmol/l Bedside Lactic Acid Venous 1.74 mmol/L (0.90-1.70) Laboratory results as reviewed by me. Medications Administered Medications (Trade) Dose Ordered Sig/Moises Route Start Time Stop Time Status Last Admin Dose Admin Sodium Chloride (Nss 1000ml) 1,000 ml @ 999 mls/hr Q1H1M STAT IV 05/15/16 13:03 05/15/16 14:03 DC 05/15/16 13:19 999 MLS/HR Labetalol HCl (Normodyne IV) 20 mg NOW STAT IV 05/15/16 13:03 05/15/16 13:08 DC 05/15/16 13:23 20 MG Ondansetron HCl (Zofran Inj) 4 mg NOW STAT IV 05/15/16 13:03 05/15/16 13:08 DC 05/15/16 13:19 4 MG Labetalol HCl 10 mg 10 mg NOW STAT IV 05/15/16 13:59 05/15/16 14:00 DC 05/15/16 14:15 10 MG Aztreonam/Dextrose (Azactam IV/D5 100ml) 110 ml @ 110 mls/hr NOW ONCE IV 05/15/16 15:00 05/15/16 15:59 DC 05/15/16 15:22 110 MLS/HR Labetalol HCl (Normodyne IV) 10 mg NOW STAT IV 05/15/16 15:42 05/15/16 15:43 DC 05/15/16 15:48 10 MG Labetalol HCl (Normodyne IV) 10 mg NOW STAT IV 05/15/16 16:10 05/15/16 16:12 DC 05/15/16 16:19 10 MG Sodium Polystyrene Sulfonate 30 gm 30 gm NOW STAT PO 05/15/16 16:27 05/15/16 16:28 DC 05/15/16 16:47 30 GM Sodium Bicarbonate/ Dextrose (Sodium Bicarbonate 8.4% Inj/D5 50ml) 100 ml @ 75 mls/hr TODAY@1627 IV 05/15/16 16:27 05/15/16 17:46 DC 05/15/16 16:57 75 MLS/HR ECG Indication: vomiting Rate (beats per minute): 105 Rhythm: sinus tachycardia Findings: T-wave inversion (lead I), other (prolonged QTC of 541, nonspecific ST depressions laterally) ED Course 1258: The patient was evaluated in room B4B. A complete history and physical exam was performed. 1303: Ordered Zofran Inj 4 mg IV, Normodyne IV 20 mg IV, NSS 1000 ml @ 999 mls/ hr IV. 1335: I reevaluated the patient and we got an IV on the patient, and the patient is starting to feel better. His nausea has improved. 1358: I reevaluated the patient and he has a blood pressure of 140/110 currently , with a heart rate of 106. His mother notes that the patient's blood pressure usually runs 120/80 at home. The mother believes that the patient's white blood count was elevated at [place] but she is unsure. 1359: Ordered Normodyne IV 10 mg IV. 1428: Upon reevaluation, the patient is stable. Discussed results and treatment plan with the patient. He verbalized understanding and agreement with the treatment plan. The patient will be evaluated for further management. 1431: I discussed the patient with Dr. Crump - [facility] hospitalist - he will evaluate the patient for further treatment. 1500: Ordered Aztreonam 1000 mg/Dextrose 110 ml @ 110 mls/hr IV, Vancomycin HCl 850 mg/NSS 267 ml @ 125 mls/hr IV. 1520: I reevaluated the patient and he is feeling better. I discussed with Dr. Crump regarding the patient's hyperkalemia, and Dr. Crump will manage it further and discuss it further with critical care and nephrology. 1542: I reevaluated the patient and his blood pressure is starting to go up again, so we are going to give him more Labetalol. 1551: I rediscussed the patient with Dr. Crump, and he is discussing the case with critical care still. 1606: We are paging a critical care attending at [facility] for transfer of the patient. I rediscussed the patient with Dr. Salmeron - Critical Care - she requests that the IV team attempt a second IV. 1612: I discussed the patient with Dr. Huang - [facility] 1616: Ordered Hydralazine Inj 10 mg IV. 1622: I discussed the patient with Dr. Aquino - [facility] - he accepts the patient in transfer. We are unable to get a second IV. The patient says that he is feeling alright. Dr. Aquino suggests Bicarb and Kayexalate. There are no local helicopters and we are trying to find one in [place]. 1627: Ordered Sodium Bicarbonate 8.4% Inj 50 ml IV, Kayexalate Susp 30 gm PO. 1725: I reevaluated the patient and he is stable. [facility] is packaging him up. Medical Decision Differential: Sepsis, Infectious (UTI/Pneumonia/Meningitis/etc), Metabolic/ Electrolyte Abnormality, Cardiac, Hepatic, Endocrine, Toxicologic, Neurologic, amongst other pathologies entertained. 21 yr old male with renal failure since 16 yrs old, s/p failed transplant and thus now chronically on dialysis with significant issues controlling BP. Feb 26 diagnosed with ascending aortic dissection and flown to [facility] for open cardiothoracic repair. During next 79 days he spent in [facility] he was trached with vent, on ecmo for 11 days and has vascular emergently left leg resulting in difficulty using leg. Furthermore had DVT (?right subclavian) for which he is on Coumadin. He was discharged to home 5 days ago and doing well until yesterday when he began vomiting. Nausea and vomiting only symptoms other than generalized weakness which has been persistent. Unable to keep down any of his meds, including carvedilol. On arrival he is Hypertensive, tachycardic. He is ill appearing, moderate distress and clearly dehydrated. He absolutely denies chest pain, abdominal pain, shortness of breath, headache, neck pain. Right extremities with good pulses, left upper arm fistula with good thrill and left leg in boot. No evidence of cellulitis. Noted previously did well with Zofran per patient and mother thus empirically given this IV along with fluids and IV Labetalol. Labs reveal leukocytosis and he has bilateral infiltrates on CXR consistent with sepsis. Hypertension: BP improving though requiring multiple rounds Labetalol. Trying to keep MAP somewhat under control without making severely systolic drop from initial SBP 170s on my initial eval. Nausea/Vomiting: Likely secondary to PNA sepsis, though may be cause of PNA (ie aspiration?). Abdomen is soft, non-tender. Nausea completely gone with Zofran. Patient stating he is feeling much improved with BP down and zofran on board. Access: He is very limited access damon and other than a single 20 gauge right wrist there is no other access available on him. IV team without any luck either. Had to be very careful with IV already. With elevated INR, multiple vascular issues and many previous lines, I do not feel that it would be safe to do central line unless code situation. Critical care team here also do not feel comfortable doing this unless absolutely necessary. Doing IO would likely be of minimal benefit at moment as well. Sepsis: Broad spectrum abx of Aztreonam and Vanco started after blood cultures obtained. Lactic Acid OK thus will hold on full 30ml/kg fluid resus as with his dialysis would prefer to avoid fluid overload. Avoid PNCs given allergy, as well as fluoroquinolones given prolonged qtc. Hyperkalemia: HyperK. Secondary to renal failure/sepsis? No severe peaked T waves EKG changes. Initially given fluids though still mildly elevated thus given IV bicarb. Patient refusing Kayexalate. Review of chart it appears he has had elevated K previously and that he has tolerated this. Given the tenuous IV status I do not feel that given large doses Bicarb are indicated as may lose access which would be far more detrimental. He was monitored for quite some time and doing well. Prolonged QTC: Unclear if chronic though may be secondary to hyperK. Avoid further Zofran. Supratherapeutic INR: Poor intake unclear if med issues. Clearly concerning however given vascular issues last few months reversing emergently without acute need could possibly kill her. Disposition: I discussed the case extensively with Hospitalist as well as further discussion with critical care and after this it was felt that patient will far exceed the capabilities of our facility. Thus he will need transfer to [facility] where he just spent last 3 months. He is not nearly safe enough for transfer via ground at this time though as stable over several hours in ED I feel transfer via air at this time is reasonable. Due to limited local air there was mild delay in transfer time once accepted to [facility]. Appreciate input of Zya Machado and Miles from [facility] and their willingness to help in this case. Consults Time Called: 1428 Consulting Physician: Dr. Theron JONES hospitalist Returned Call: 1431 I discussed the patient with Dr. Theron JONES hospitalist - he will evaluate the patient for further treatment. Additional Consults: Time Called: -- Consulted Physician: Dr. Theron JONES hospitalist Returned Call: 1520 Additional Comments: I discussed with Dr. Crump regarding the patient's hyperkalemia, and Dr. Crump will manage it further and discuss it further with critical care and nephrology. Time Called: -- Consulted Physician: Dr. Theron JONES hospitalist Returned Call: 1551 Additional Comments: I rediscussed the patient with Dr. Crump, and he is discussing the case with critical care still. Impression Primary Impression: Intractable vomiting Additional Impressions: Dehydration Hypertensive emergency Bilateral pneumonia Leukocytosis Hyperkalemia Prolonged QT interval Supratherapeutic INR Critical Care I have personally spent greater than 150 minutes of critical care time in the direct management of this patient. This was a life/limb threatening event. This includes time spent evaluating patient, direct bedside care, chart review, placing orders, interpretation of diagnostic studies, discussion with consultants, patient, and family members, as well as other required patient management activities. This 150 minutes is in excess of all separately billable procedures. Scribe Attestation The scribe's documentation has been prepared under my direction and personally reviewed by me in its entirety. I confirm that the note above accurately reflects all work, treatment, procedures, and medical decision making performed by me. Departure Information Dispostion Transfer Acute Care Facility (to [facility]) Referrals No Doctor, Assigned (PCP) Patient Instructions My [facility] Problem Qualifiers Primary Impression: Intractable vomiting Vomiting type: unspecified Nausea presence: with nausea Qualified Codes: R11.2 - Nausea with vomiting, unspecified Additional Impressions: Bilateral pneumonia Pneumonia type: due to unspecified organism Lung location: unspecified part of lung Qualified Codes: J18.9 - Pneumonia, unspecified organism Leukocytosis Leukocytosis type: unspecified Qualified Codes: D72.829 - Elevated white blood cell count, unspecified
[2016-05-15 13:27] LABS: BASO % 1.1 %; COMPLETE YES; IG% 0.5 %; LYMPH % 16.9 %; LYMPH ABS # 3.14 K/uL (1.2-3.4); MEAN CELL VOLUME 86.8 fL (80-100); MEAN CORPUSCULAR HEMOGLOBIN 27.5 pg (25-34); MEAN CORPUSCULAR HGB CONC 31.7 g/dl (32-36); MEAN PLATELET VOLUME 8.9 fL (7.4-10.4); MONO % 7.7 %; NEUT % 72.8 %; PLATELET COUNT 568 K/uL (130-400); RED BLOOD COUNT 3.34 M/uL (4.7-6.1); WHITE BLOOD COUNT 18.62 K/uL (4.8-10.8)
[2016-05-15 13:56] LABS: INR 5.1 (0.9-1.1); PARTIAL THROMBOPLASTIN RATIO 1.4; PROTHROMBIN TIME (PATIENT) 58.9 SECONDS (9.0-12.0)
--- NOTE | 2016-05-15 13:56 | DIAGNOSTIC IMAGING REPORT ---
CHEST ONE VIEW PORTABLE HISTORY: vomiting, weakness, hypertension COMPARISON: Chest 02/24/2016. FINDINGS: No pneumothorax. Postoperative changes. Cartilage has increased in size. There are small bilateral pleural effusions. Focal density to the periphery of the right midlung zone may represent a loculated component of the right pleural effusion. There are also hazy bilateral mid to lower lung zone airspace opacities. IMPRESSION: Small bilateral pleural effusions, right greater than left. There are also hazy bilateral mid to lower lung zone airspace opacities. This may represent atelectasis or pneumonia. Electronically signed by: Erickson Martines M.D. 05/15/2016 1:54 PM Dictated Date/Time: 05/15/2016 1:53 PM
[2016-05-15 14:05] LABS: ALKALINE PHOSPHATASE 149 U/L (45-117); ALT/SGPT 33 U/L (12-78); AST/SGOT 27 U/L (15-37); BLOOD UREA NITROGEN 48 mg/dl (7-18); BUN/CREATININE RATIO 7.3 (10-20); CALCIUM 9.6 mg/dl (8.5-10.1); CARBON DIOXIDE 23 mmol/L (21-32); CHLORIDE 100 mmol/L (98-107); CKMB/CK RATIO 4.5 (0-3.0); GLUCOSE 93 mg/dl (70-99); MAGNESIUM 2.5 mg/dl (1.8-2.4); SODIUM 136 mmol/L (136-145)
[2016-05-15 14:06] LABS: POTASSIUM 6.2 mmol/L (3.5-5.1)
[2016-05-15] MEDS ORDERED: AZTREONAM IV 1,000 MG in DEXTROSE 5% 100ML IV ONE (15:00)
[2016-05-15] MEDS ORDERED: VANCOMYCIN INJ 850 MG in SODIUM CHLORIDE 0.9% 250ML 250 ML IV ONE (15:00)
[2016-05-15 15:28] LABS: ISTAT HEMOGLOBIN 9.5 g/dl (14.0-18.0); ISTAT IONIZED CALCIUM 1.1 mmol/l
[2016-05-15] MEDS ORDERED: HydrALAZINE HCL 20 MG/ML VIAL IV. STA (16:16)
[2016-05-15] MEDS ORDERED: DEXTROSE 5% IV SCH (16:27)
[2016-05-15] MEDS ORDERED: SODIUM POLYST. SULF SUSP 15G/60ML PO STA (16:27)
[2016-05-15] MEDS ORDERED: SODIUM BICARBONATE IV SCH (16:27)
[2016-05-15] MEDS ORDERED: SODIUM BICARB 8.4% INJ 50 MEQ/50 ML SYR IV STA (16:27)
[2016-05-15 17:30] VITALS: BP 138/95; PULSE 105; O2SAT 97
[2016-08-20] MEDS ORDERED: SALI0.6510 (15:19)
[2016-08-20] MEDS ORDERED: RXC5 PO (15:19)
[2016-08-20] MEDS ORDERED: LEVO50TA PO (15:19)
[2016-08-20] MEDS ORDERED: TRIA1SPR4 NAE (15:19)
[2016-08-20] MEDS ORDERED: CMD5 PO (15:19)
[2016-08-20] MEDS ORDERED: SNK PO (15:19)
[2016-08-20] MEDS ORDERED: DXY100 PO (15:19)
== END 2016-05-15 17:44 | disposition short-term general hospital (02) ==
LOC: C.EDB 11:55 → C.EDC 17:44
DX: E86.0 Dehydration (principal); J18.9 Pneumonia, unspecified organism; I12.0 Hypertensive chronic kidney disease with stage 5 chronic kidney disease or end stage renal disease; N18.6 End stage renal disease; D72.829 Elevated white blood cell count, unspecified; E87.5 Hyperkalemia; R11.10 Vomiting, unspecified; R00.0 Tachycardia, unspecified; Z94.0 Kidney transplant status; Z79.01 Long term (current) use of anticoagulants; Z79.899 Other long term (current) drug therapy; Z88.8 Allergy status to other drugs, medicaments and biological substances; Z80.9 Family history of malignant neoplasm, unspecified; Z82.49 Family history of ischemic heart disease and other diseases of the circulatory system

== ENCOUNTER 2016-08-14 08:30 | Inpatient (IN) | payer OTHER ==
[~2016-08-14] VITALS: Ht 167.6 cm; Wt 59.5 kg
[2016-08-14] VITALS (50 sets, daily range): BP systolic 76–189; BP diastolic 52–116; PULSE 77–105; TEMP 36.4–36.7; O2SAT 93–100; Ht 167.6 cm; Wt 59.5 kg
[~2016-08-14 08:30] MED LIST changes: +CALCIUM CHLORIDE 10% 10 ML SYR IV ONE; +CARV25TA PO; -CLON0.1T12 PO; -ERGO500037 PO; -METO50TA7 PO; -SEVE800T7 PO; +SODIUM BICARB 8.4% INJ 50 MEQ/50 ML SYR IV ONE; +SODIUM CHLORIDE 0.9% 10ML FLUSH IV ONE; -TACR1CAP PO; +TEMA15CA4 PO; +TRAM-10 PO; +WARF-284 PO
[2016-08-14] MEDS ORDERED: ONDANSETRON INJ 2 MG/ML 2 ML VIAL ONE (08:34)
[2016-08-14] MEDS ORDERED: CALCIUM GLUCONATE 10% 10 ML VIAL IV ONE ×2 (08:38→08:49)
[2016-08-14] MEDS ORDERED: RAPID SEQUENCE INDUCTION BAG ONE (08:39)
[2016-08-14] MEDS ORDERED: ALBUT/IPRATROP 3MG/0.5MG NEB 3 ML VIAL ONE (08:41)
[2016-08-14] MEDS ORDERED: NovoLIN-R INSULIN PER UNIT CHARGE ONE ×2 (08:48→08:51)
[2016-08-14] MEDS ORDERED: DEXTROSE 50% 50 ML SYR ONE ×3 (08:51→10:57)
[2016-08-14] MEDS ORDERED: DEXTROSE 10% 1,000 ML BAG ONE (08:51)
[2016-08-14] MEDS ORDERED: FENTANYL CITRATE INJ 50 MCG/1 ML 2 ML VIAL ONE (08:52)
[2016-08-14] MEDS ORDERED: SODIUM CHLORIDE 0.9% 1000ML 1,000 ML IV STA (08:59)
[2016-08-14] MEDS ORDERED: SODI CHLOR 2.5MEQ/ML 14.6% INJ 155 MEQ in DEXTROSE 10% 1,000 ML IV SCH ×2 (09:00→18:00)
[2016-08-14] MEDS ORDERED: SODIUM POLYST. SULF SUSP 15G/60ML ONE (09:01)
[2016-08-14] MEDS ORDERED: PROPOFOL IV EMULSION 10 MG/ML 100 ML VIAL IV ONE (09:02)
[2016-08-14] MEDS ORDERED: INSULIN REGULAR 250 UNITS in SODIUM CHLORIDE 0.9% 250ML 250 ML IV ONE (09:15)
[2016-08-14] MEDS ORDERED: LABETALOL HCL IV 5 MG/ML 20ML IV ONE (09:19)
[2016-08-14] MEDS ORDERED: SERT50TA PO (09:44)
[2016-08-14] MEDS ORDERED: SYN25 PO (09:44)
[2016-08-14] MEDS ORDERED: GABA-112 PO (09:44)
[2016-08-14] MEDS ORDERED: VITACAP26 PO (09:44)
[2016-08-14] MEDS ORDERED: LSN20 PO (09:44)
[2016-08-14] MEDS ORDERED: NORT50CA PO (09:44)
[2016-08-14] MEDS ORDERED: OPTIRAY 320 IV PRN (09:45)
[2016-08-14] MEDS ORDERED: ASCA500 PO (09:48)
[2016-08-14] MEDS ORDERED: SEVE800T7 PO ×2 (09:50)
[2016-08-14 09:53] LABS: BASO % 0.4 %; BASO ABS # 0.04 K/uL (0-0.2); EOS % 2.8 %; HEMATOCRIT 36.7 % (42-52); IG% 0.4 %; LYMPH % 19.8 %; LYMPH ABS # 2.06 K/uL (1.2-3.4); MEAN CELL VOLUME 99.5 fL (80-100); MEAN CORPUSCULAR HEMOGLOBIN 30.1 pg (25-34); MEAN CORPUSCULAR HGB CONC 30.2 g/dl (32-36); MEAN PLATELET VOLUME 10.9 fL (7.4-10.4); MONO % 6.2 %; NEUT % 70.4 %; PLATELET COUNT 180 K/uL (130-400); RED BLOOD COUNT 3.69 M/uL (4.7-6.1); WHITE BLOOD COUNT 10.42 K/uL (4.8-10.8)
--- NOTE | 2016-08-14 09:53 | DIAGNOSTIC IMAGING REPORT ---
CHEST ONE VIEW PORTABLE HISTORY: hyperkalemic arrest, ETT COMPARISON: Chest 05/15/2016. FINDINGS: The endotracheal tube terminates 8 mm from the andrew. Nasogastric tube terminates below the diaphragm. The tip is not included on this study. Overlying defibrillator head. The heart remains enlarged. Poststernotomy changes. Small bilateral pleural effusions persist. No pneumothorax. Right midlung zone density remains unchanged. This favors pleural fluid. Mild pulmonary edema is again noted. IMPRESSION: 1. Endotracheal tube terminates 8 mm from the andrew. This should be pulled back by 1 to 2 cm. 2. Cardiomegaly, small bilateral pleural effusions, and pulmonary edema. Electronically signed by: Erickson Martines M.D. 08/14/2016 9:52 AM Dictated Date/Time: 08/14/2016 9:51 AM
--- NOTE | 2016-08-14 09:59 | Nephrology Consultation ---
Nephrology Consultation Date & Providers Date of Consultation: Aug 14, 2016. Primary Care Provider: No Doctor, Assigned Referring Provider: Reason for Consultation Provide inpatient HD and assist w/ patient's medical management History of Present Illness Mr. Clay is a 21 year old white male who is seen at the request of Dr. Suazo to provide emergency HD and assist w/ medical management. Patient was seen and examined in the ED, medical records were reviewed, case discussed w/ ICU team/family/outpatient HD community health advocate. 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 He was on peritoneal dialysis for 3 years and then received a DDRT. 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 He transitioned back to IHD . He currently dialyzes TTS at the [facility] HD unit under the care of Dr. Palma. Mr. Clay was last hospitalized at [facility] 03/14. He was diagnosed w/ a dissecting aortic aneurysm. He required transfer to [facility] and underwent operative repair. He was hospitalized for 79 days requiring tracheostomy/mechanical ventilation and was on ECMO for 11 days. He required Coumadin for treatment of DVT. Mr. Clay missed dialysis Sunday. He slept through his treatment. This morning he suffered a syncopal event and was transported to [facility] ED for evaluation. Patient presented w/ v- fib arrest. He was successfully resuscitated by the critical care team. He is orotracheally intubated and on mechanical ventilation. POC potassium was > 10. Calcium, insulin, bicarbonate and kayexelate have been administered. Patient is scheduled for emergency chest CT and then admission to the ICU. 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 Patient was on PD x 3 years and then received DDRT # Failed transplant requiring initiation of IHD 09/10 # Aortic dissection s/p surgical repair 03/14 at [facility] # HTN # Anemia # Steroid induced DM Surgical: # PD catheter insertion & subsequent removal # DDRT # Left arm AVF # Dissected aortic aneurysm repair Allergies Coded Allergies: Penicillins (Unverified Allergy, Severe, FACE SWELLS, 08/14/16) Amoxicillin (Verified Allergy, Unknown, ?, 05/15/16) Inpatient Medications Current Inpatient Medications Medications (Trade) Dose Ordered Sig/Moises Route Start Time Stop Time Status Last Admin Dose Admin Sodium Chloride 1,000 ml @ 999 mls/hr Q1H1M STAT IV 08/14/16 08:59 08/14/16 09:59 Sodium Chloride 155 meq/Dextrose 1,062 ml @ 50 mls/hr [id number] IV 08/14/16 09:00 09/13/16 08:59 Ioversol (Optiray 320) 100 ml UD PRN IV 08/14/16 09:45 08/18/16 09:44 Heparin Sodium (Porcine) (No Heparin In Dialysis) 1 ea TODAY@1000 N/A 08/14/16 10:00 08/14/16 23:59 Family History Cancer Hypertension Negative for CKD/ESRD Social History Smoking Status: Unknown if Ever Smoked Drug Use: none Marital Status: single 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 Lives with mother Review of Systems Unable to obtain. Patient is being mechanically ventilated Physical Exam Date Time Temp Pulse Resp B/P (MAP) Pulse Ox O2 Delivery O2 Flow Rate FiO2 08/14/16 08:54 185 08/14/16 08:54 76 08/14/16 08:54 137 08/14/16 08:48 167 08/14/16 08:47 160 08/14/16 08:46 164 08/14/16 08:45 166 08/14/16 08:44 166 08/14/16 08:43 164 08/14/16 08:41 165 08/14/16 08:40 159 08/14/16 08:39 147 08/14/16 08:38 118 08/14/16 08:37 105 08/14/16 08:36 112 08/14/16 08:35 126 08/14/16 08:34 104 08/14/16 08:33 178 08/14/16 08:32 208 08/14/16 08:30 37.0 200 10 145/114 92 Nasal Cannula 2.0 General Appearance: + thin (young male currently mechanically ventilated) Head: atraumatic Eyes: PERRL ENT: + pertinent finding (orotracheal intubation) Neck: supple Respiratory/Chest: + pertinent finding (coarse breath sounds) Cardiovascular: + tachycardia Abdomen/GI: soft (hypoactive bowel sounds) Extremities/Musculoskelatal: no pedal edema, + pertinent finding (left arm AVF + bruit) Neurologic/Psych: + pertinent finding (unresponsive. Intubated, mechanically ventilated) Laboratory Results Last 24 Hours Test 08/14/16 07:37 08/14/16 08:58 08/14/16 08:59 08/14/16 09:12 Bedside Glucose 180 mg/dl Creatine Kinase MB Ratio Bedside Troponin I < 0.030 ng/ml Impression (1) Cardiopulmonary arrest with successful resuscitation (2) Hyperkalemia (3) ESRD on hemodialysis (4) Hypertension Recommendations Will provide emergency HD once patient arrives in ICU. Awaiting lab results and chest CT films. Will provide heparin free HD and use 2 K bath. Will recheck potassium following treatment. Outpatient dialysis unit contacted by phone this morning. Case discussed w/ community health advocate. Access flow in 07/12 was 1659 cc/min. Orders entered into EMR and inpatient HD RN notified of need for emergency dialysis. One hour critical care time provided this morning. This was necessary to examine the patient, review medical records and coordinate care w/ the ICU team and inpatient dialysis services.
[2016-08-14 10:13] LABS: BUN/CREATININE RATIO 7.5 (10-20); CALCIUM 13.4 mg/dl (8.5-10.1); CKMB/CK RATIO 3.7 (0-3.0); MAGNESIUM 2.8 mg/dl (1.8-2.4); POTASSIUM 9.4 mmol/L (3.5-5.1); THYROID STIMULATING HORMONE 8.35 uIu/ml (0.300-4.500)
[2016-08-14] MEDS ORDERED: NORTRIPTYLINE HCL 25 MG CAP PO PRN (10:15)
[2016-08-14] MEDS ORDERED: LORAZEPAM 2 MG/ML 1 ML VIAL IV PRN (10:15)
[2016-08-14 10:16] LABS: ANISOCYTOSIS PRESENT; COMPLETE YES
[2016-08-14] MEDS ORDERED: VANCOMYCIN 1GM/270ML NSS IV STA (10:24)
[2016-08-14] MEDS ORDERED: HydrALAZINE HCL 20 MG/ML VIAL IV. PRN (10:30)
[2016-08-14 10:38] LABS: BETA-HYDROXYBUTYRATE 3.79 mg/dL (0.2-2.81)
--- NOTE | 2016-08-14 10:41 | DIAGNOSTIC IMAGING REPORT ---
CT ANGIOGRAM OF THE CHEST COMBO CLINICAL HISTORY: Unresponsive. COMPARISON STUDY: Chest CT dated 02/24/2016. Chest x-ray dated 08/14/2016. TECHNIQUE: Before and following the IV administration of 119 cc of Optiray 320, CT angiogram of the chest was performed from the thoracic inlet to the upper abdomen utilizing the dissection protocol. Images are reviewed in the axial, sagittal, and coronal planes. 3-D MIPS images are created and assessed. IV contrast was administered without complication. The examination is significant degraded by motion artifact as well as by streak artifact from the arms which could not be elevated above the chest. CT DOSE: 1143.22 mGycm FINDINGS: Thyroid: Imaged portions of the thyroid gland are normal in size and attenuation. Thoracic aorta: Postoperative changes identified involving the ascending thoracic aorta. The thoracic aorta is normal in caliber and demonstrates standard 3-vessel arch anatomy. No dissection is seen. The arch vessels are widely patent. A dialysis fistula is suggested in the left upper extremity which is only partially visualized. Pulmonary vasculature: The pulmonary trunk is dilated measuring 3.6 cm in transverse diameter. This suggests pulmonary artery hypertension. There are no central filling defects identified in the pulmonary vessels to suggest pulmonary embolus. Note that this examination was not specifically protocoled to assess for pulmonary emboli. Heart: The patient is status post midline sternotomy. The heart is enlarged and without pericardial effusion. Lungs and pleural spaces: The endotracheal tube terminates in the right mainstem bronchus. There are small to moderate right and small left pleural effusions with bibasilar consolidation. Perihilar airspace opacities and diffuse intralobular septal thickening are observed. The trachea is clear. No pneumothorax is seen. Mediastinum: There are mildly enlarged mediastinal lymph nodes. A paratracheal node on image #82 measures 12 mm in short axis. Leeanne: Clear. Axillae: There is no axillary lymphadenopathy. Upper abdomen: There is distention of the IVC and hepatic veins with reflux of contrast indicating cardiac dysfunction. The [place] kidneys are partially imaged and markedly atrophic. An enteric tube terminates in the stomach. See report of abdominal CT performed concurrently for detailed intra-abdominal findings. Skeletal structures: No lytic or blastic bony lesions are seen. IMPRESSION: 1. The endotracheal tube terminates in the right mainstem bronchus. Repositioning is indicated. 2. Postoperative change is identified in the ascending thoracic aorta. No aneurysm or dissection is seen on today's examination. 3. Cardiomegaly with evidence of congestive failure and interstitial edema. 4. Small to moderate right and small left pleural effusions with associated consolidation. This likely represents atelectasis. Clinical correlation will be required. Superimposed pneumonia would be impossible to exclude by imaging. 5. Additional findings as above. Electronically signed by: Edgard López M.D. 08/14/2016 10:39 AM Dictated Date/Time: 08/14/2016 10:27 AM
[2016-08-14] MEDS ORDERED: VANCOMYCIN CONSULT ACTIVE PRN (10:45)
--- NOTE | 2016-08-14 10:48 | DIAGNOSTIC IMAGING REPORT ---
ABDOMEN AND PELVIS CTA for AORTIC DISSECTION CT DOSE: HISTORY: Cardiac arrest. Assess for dissection. TECHNIQUE: Multiaxial CT images of the abdomen and pelvis were performed both before and after the intravenous administration of contrast to evaluate the aorta. Maximal intensity projection images were also obtained. COMPARISON STUDY: Abdomen and pelvis CT 08/01/2015. FINDINGS: The heart remains enlarged. Small bilateral pleural effusions, right greater than left. Pulmonary edema and patchy bibasilar airspace opacities. No pneumoperitoneum. No pneumatosis. Nasogastric tube terminates in the stomach. Normal caliber abdominal aorta with no evidence for dissection. The celiac, mesenteric, renal, and iliac arteries are widely patent. Right common femoral arterial and venous catheters are noted. The [place] kidneys are atrophic. There is a right lower quadrant renal transplant. This enhances normally. Bladder is decompressed. Small amount of ascites. Retrograde flow of contrast into the hepatic veins due to the cardiac decompensation. No hepatic or splenic masses. The gallbladder is unremarkable. Mild peripancreatic edema. The pancreas enhances normally. A few prominent retroperitoneal lymph nodes are again noted. No bowel wall thickening or obstruction. IMPRESSION: 1. No evidence for an aortic dissection. 2. Small amount of ascites and small bilateral pleural effusions. 3. Patchy bibasilar airspace opacities which are nonspecific. This could represent atelectasis or pneumonia. 4. Pulmonary edema. 5. Mild peripancreatic edema. This is likely due to the patient's diffuse edematous state. However, recommend correlation with pancreatic enzymes to exclude the less likely possibility of acute pancreatitis. 6. Nasogastric tube terminates in the stomach. 7. No bowel wall thickening or obstruction. 8. Right lower quadrant transplant kidney. No hydronephrosis. Electronically signed by: Erickson Martines M.D. 08/14/2016 10:47 AM Dictated Date/Time: 08/14/2016 10:33 AM
--- NOTE | 2016-08-14 10:53 | EMERGENCY ROOM VISIT NOTE ---
History Report prepared by Anthony: Giulia Manuel Under the Supervision of: Dr. Helen Herrera M.D. 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 The patient came to the ED via ambulance from home. Per EMS, the patient was found pale, diaphoretic, and nauseous. EMS reports that the patient felt ill this morning and then experienced syncope so his parents called the ambulance. The patient was given 4 mg Zofran en route to the ED and based on prehospital EKGs, a code blue was called upon arrival to the ED. 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 Per the patient's EMR, he patient received a kidney transplant when he was 18 and has failed 2 other renal transplants. The patient is currently status post failed kidney transplant and he started to receive dialysis again about 1 year ago. He receives dialysis Tuesdays, , and Saturdays at [facility] dialysis in [place]. His most recent dialysis was last . He missed his dialysis on Sunday because he slept through it. The patient is due for dialysis on Sunday. Per the patient's EMR, the patient was diagnosed with an ascending aortic dissection on February 27, 2016 and was flown to [facility] for open cardiothoracic repair. The patient was in the hospital for 79 days after that and he had a trach with a ventilator and was on ECMO for 11 days. The patient is on Coumadin for a previous DVT. 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 A total of 10 systems reviewed and were otherwise negative. Past Medical & Surgical Medical Problems: (1) Cardiopulmonary arrest with successful resuscitation (2) Chest pain (3) Chronic renal failure syndrome (4) Diabetic complication (5) Encounter for hemodialysis for ESRD (6) ESRD on hemodialysis (7) History of - hypertension (8) Hyperkalemia (9) Hypertension Surgical Problems: (1) Aortic dissection (2) Renal transplant, status post Family History Cancer Hypertension Social History Smoking Status: Never Smoker Alcohol Use: none Drug Use: none Marital Status: single Housing Status: lives with family Occupation Status: student Current/Historical Medications Scheduled Ascorbic Acid (Vitamin C), 1 TAB PO DAILY Carvedilol (Coreg), 50 MG PO BID Gabapentin (Neurontin), 100 MG PO BID Levothyroxine Sodium (Synthroid), 25 MCG PO QAM Lisinopril (Lisinopril), 20 MG PO DAILY Sertraline (Zoloft), 50 MG PO DAILY Sevelamer Carbonate (Renvela), 1,600 MG PO TIDM Sevelamer Carbonate (Renvela), 800 MG PO DAILY Scheduled PRN Nortriptyline (Pamelor), 50 MG PO DAILY PRN for UNDECIDED Allergies Coded Allergies: Penicillins (Unverified Allergy, Severe, FACE SWELLS, 08/14/16) Amoxicillin (Verified Allergy, Unknown, ?, 05/15/16) Physical Exam Vital Signs Date Time Temp Pulse Resp B/P (MAP) Pulse Ox O2 Delivery O2 Flow Rate FiO2 08/14/16 09:15 89 12 195/111 100 Mechanical Ventilator 08/14/16 09:00 74 12 182/95 100 Mechanical Ventilator 08/14/16 08:56 68 12 229/115 100 Mechanical Ventilator 08/14/16 08:54 185 08/14/16 08:54 76 08/14/16 08:54 211 13 87/61 100 Mechanical Ventilator 08/14/16 08:54 137 08/14/16 08:51 199 12 79/40 96 Mechanical Ventilator 08/14/16 08:48 167 08/14/16 08:47 160 08/14/16 08:46 164 08/14/16 08:45 60 08/14/16 08:45 16 100 Mechanical Ventilator 100 08/14/16 08:45 166 08/14/16 08:44 166 08/14/16 08:43 164 08/14/16 08:41 165 08/14/16 08:40 159 08/14/16 08:39 147 08/14/16 08:38 118 08/14/16 08:37 105 08/14/16 08:36 112 08/14/16 08:36 117 20 145/114 92 Nasal Cannula 08/14/16 08:35 126 08/14/16 08:34 104 08/14/16 08:33 178 08/14/16 08:32 36.8 107 08/14/16 08:32 208 08/14/16 08:30 37.0 200 10 145/114 92 Nasal Cannula 2.0 Physical Exam Vital signs reviewed. General: Chronically ill-appearing male, somnolent and dry heaving. HEENT: No scleral icterus, PERRLA, neck supple. Atraumatic. Cardiovascular: Tachycardic rate and regular rhythm, no extra sounds, weak pulses. Pulmonary: Clear to auscultation bilaterally, normal work of breathing. Abdomen: Soft, nontender, nondistended, positive bowel sounds. Musculoskeletal: Atraumatic, well-healed post sternotomy incision, fistula in left upper arm, no peripheral edema. Neurologic: Patient awake and answering some questions but generally weak. Skin: Warm, dry, no rash Medical Decision & Procedures ER Provider Diagnostic Interpretation: Radiology results as stated below per my review and radiologist interpretation: CHEST ONE VIEW PORTABLE FINDINGS: The endotracheal tube terminates 8 mm from the andrew. Nasogastric tube terminates below the diaphragm. The tip is not included on this study. Overlying defibrillator head. The heart remains enlarged. Poststernotomy changes. Small bilateral pleural effusions persist. No pneumothorax. Right midlung zone density remains unchanged. This favors pleural fluid. Mild pulmonary edema is again noted. IMPRESSION: 1. Endotracheal tube terminates 8 mm from the andrew. This should be pulled back by 1 to 2 cm. 2. Cardiomegaly, small bilateral pleural effusions, and pulmonary edema. Electronically signed by: Erickson Martines M.D. 08/14/2016 9:52 AM Dictated Date/Time: 08/14/2016 9:51 AM Laboratory Results 08/14/16 07:37 Red Blood Count 3.69, Mean Corpuscular Volume 99.5, Mean Corpuscular Hemoglobin 30.1, Mean Corpuscular Hemoglobin Concent 30.2, Mean Platelet Volume 10.9, Neutrophils (%) (Auto) 70.4, Lymphocytes (%) (Auto) 19.8, Monocytes (%) (Auto) 6.2, Eosinophils (%) (Auto) 2.8, Basophils (%) (Auto) 0.4, Neutrophils # (Auto) 7.34, Lymphocytes # (Auto) 2.06, Monocytes # (Auto) 0.65, Eosinophils # (Auto) 0.29, Basophils # (Auto) 0.04 Test 08/14/16 07:37 08/14/16 09:12 White Blood Count 10.42 K/uL (4.8-10.8) Red Blood Count 3.69 M/uL (4.7-6.1) Hemoglobin 11.1 g/dL (14.0-18.0) Hematocrit 36.7 % (42-52) Mean Corpuscular Volume 99.5 fL (80-100) Mean Corpuscular Hemoglobin 30.1 pg (25-34) Mean Corpuscular Hemoglobin Concent 30.2 g/dl (32-36) Platelet Count 180 K/uL (130-400) Mean Platelet Volume 10.9 fL (7.4-10.4) Neutrophils (%) (Auto) 70.4 % Lymphocytes (%) (Auto) 19.8 % Monocytes (%) (Auto) 6.2 % Eosinophils (%) (Auto) 2.8 % Basophils (%) (Auto) 0.4 % Neutrophils # (Auto) 7.34 K/uL (1.4-6.5) Lymphocytes # (Auto) 2.06 K/uL (1.2-3.4) Monocytes # (Auto) 0.65 K/uL (0.11-0.59) Eosinophils # (Auto) 0.29 K/uL (0-0.5) Basophils # (Auto) 0.04 K/uL (0-0.2) RDW Standard Deviation 76.0 fL (36.4-46.3) RDW Coefficient of Variation 20.9 % (11.5-14.5) Immature Granulocyte % (Auto) 0.4 % Immature Granulocyte # (Auto) 0.04 K/uL (0.00-0.02) Anisocytosis PRESENT Est Creatinine Clear Calc Drug Dose 8.5 ml/min Magnesium Level 2.8 mg/dl (1.8-2.4) Total Bilirubin 1.3 mg/dl (0.2-1) Direct Bilirubin 0.5 mg/dl (0-0.2) Aspartate Amino Transf (AST/SGOT) 71 U/L (15-37) Alanine Aminotransferase (ALT/SGPT) 152 U/L (12-78) Alkaline Phosphatase 211 U/L (45-117) Creatine Kinase MB 2.4 ng/ml (0.5-3.6) Creatine Kinase MB Ratio 3.7 (0-3.0) Total Protein 7.7 gm/dl (6.4-8.2) Albumin 3.2 gm/dl (3.4-5.0) Beta-Hydroxybutyric Acid 3.79 mg/dL (0.2-2.81) Thyroid Stimulating Hormone (TSH) 8.350 uIu/ml (0.300-4.500) Bedside Troponin I < 0.030 ng/ml (0-0.045) Laboratory results per my review. Medications Administered Medications (Trade) Dose Ordered Sig/Moises Route Start Time Stop Time Status Last Admin Dose Admin Ondansetron HCl (Zofran Inj) 4 mg STK-MED ONCE .ROUTE 08/14/16 08:34 08/14/16 08:35 DC 08/14/16 08:36 4 MG Calcium Gluconate (Calcium Gluconate 10%) 2,000 mg STK-MED ONCE IV 08/14/16 08:38 08/14/16 08:39 DC 08/14/16 08:30 2,000 MG Miscellaneous (Rapid Sequence Induction Bag) 1 ea STK-MED ONCE N/A 08/14/16 08:39 08/14/16 08:40 DC 08/14/16 08:45 1 EA Albuterol/ Ipratropium (Duoneb) 12 ml STK-MED ONCE .ROUTE 08/14/16 08:41 08/14/16 08:42 DC 08/14/16 08:45 12 ML Calcium Gluconate (Calcium Gluconate 10%) 3,000 mg STK-MED ONCE IV 08/14/16 08:49 08/14/16 08:50 DC 08/14/16 08:52 3,000 MG Dextrose (Dextrose 50% 50ML Syringe) 50 ml STK-MED ONCE .ROUTE 08/14/16 08:51 08/14/16 08:52 DC 08/14/16 08:51 50 ML Dextrose (D10w) 1,000 ml STK-MED ONCE .ROUTE 08/14/16 08:51 08/14/16 08:52 DC 08/14/16 08:55 1,000 ML Fentanyl Citrate (Fentanyl Inj) 100 mcg STK-MED ONCE .ROUTE 08/14/16 08:52 08/14/16 08:53 DC 08/14/16 08:53 50 MCG Dextrose (Dextrose 50% 50ML Syringe) 100 ml STK-MED ONCE .ROUTE 08/14/16 08:55 08/14/16 08:56 DC 08/14/16 08:56 100 ML Sodium Polystyrene Sulfonate (Kayexalate Susp) 30 gm STK-MED ONCE .ROUTE 08/14/16 09:01 08/14/16 09:02 DC 08/14/16 09:02 15 GM Sodium Chloride 1,000 ml @ 999 mls/hr Q1H1M STAT IV 08/14/16 08:59 08/14/16 09:59 DC 08/14/16 08:35 999 MLS/HR Procedure Endotracheal Intubation Indication Fluid overload, hyperkalemic arrest. The patient was on 100% oxygen via NRB prior to the procedure. Suction, airway equipment, RSI drugs, respiratory equipment, and appropriate personnel were prepared prior to the initiation of the procedure. A time out was taken. Induction was performed with IV etomidate 20 mg and Rocuronium 30 mg. After observing the clinical benefit of the medications, the airway was easily visualized utilizing a 3.0 Mac blade. A 7.5 size ETT tube was placed atraumatically to 24 cm using standard technique. The cuff inflated without signs of malfunction. There were bilateral breath sounds, positive colormetric change, no gastric sounds, a good capnography waveform, and post procedure pulse oximetry was 100%. Post intubation sedation was administered using 50 mg bolus propofol followed by a drip. There were no complications. ECG Indication: tachycardia, other (abnormal prehospital EKG) Rate (beats per minute): 100 Rhythm: other (wide complex rhythm likely sinus) Findings: no ectopy, other (concerning for hyperkalemia) ED Course 0830: Past medical records reviewed. The patient was evaluated in room B1. A complete history and physical examination was performed. Based on the patient's presentation and his prehospital EKGs, a bettina blue was called at bedside. 0833: Respiratory is at bedside. 0834: Ordered Zofran Inj 4 mg IV 0838: Ordered Calcium Gluconate 2000 mg IV 0841: Ordered DuoNeb 12 ml PO 0842: I intubated the patient at this time. Please refer to the procedure note above for further details. 0844: Dr. Suazo - Intensive Care is at bedside. 0846: Dr. King - Nephrology was consulted through the ICU. He is en route to the hospital to perform dialysis. 0848: Ordered Insulin Human Regular 10 units IV 0851: Ordered Dextrose 1000 ml IV, Insulin Human Regular 10 units IV 0852: Ordered Fentanyl Citrate 100 mcg IV 0855: Ordered Dextrose 100 ml IV 0856: The patient's heart rate and rhythm have improved. The monitor reveals a sinus rhythm with a rate of 66. 0859: Ordered Sodium Chloride 1000 ml @ 999 mls/hr IV 0900: Ordered Sodium Chloride 155 meq/Dextrose 1062 ml @ 50 mls/hr IV 0901: Ordered Sodium Polystyrene Sulfonate 30 gm IV 0902: Ordered Propofol 1 dose IV 0919: Ordered Labetalol HCl 5 mg IV 0931: The medical assistant internal medicine, Dr. Lucio, discussed the patient's case with Dr. Peter Lopez - [facility]. He has agreed to evaluate the patient for further management. 0938: The patient is being taken to the ICU. He is going to receive dialysis there. Medical Decision Differentials include cardiac ischemia, aortic dissection, pulmonary embolism, electrolyte abnormality, acidosis, tension pneumothorax, hypothermia, hypovolemia, intracranial event. Medication Reconciliation: I attest that I have personally reviewed the patient' s current medication list. Blood Pressure Screening: Patient was found to have elevated blood pressure on screening but due to circumstances and the severity of the patient's presentation, the patient's elevated blood pressure was not discussed with him. This patient was evaluated and appeared to be in critical condition. The patient was somnolent but awake and answering questions. He has a sinusoidal pattern on his EKG which converts to a wide-complex tachycardia. He was given 1 amp of IV calcium gluconate immediately, IV regular insulin 10 units and 1 amp of D50. An i-STAT was performed and reveals a potassium greater than 9. Patient remained in this wide-complex rhythm and was given several doses of IV calcium gluconate, IV bicarbonate, IV insulin bolus 10 units as well as a second D50. He was started on D10 normal saline at 50 miles per hour. The patient did eventually convert to a normal sinus rhythm with a narrow complex. Laboratory work confirms a markedly elevated potassium at 9.4. The patient did require intubation due to the already volume overloaded status in addition to the requirement for additional IV therapy. Tube placement was confirmed with x- ray, the tube was withdrawn 1 cm. Please see my procedure note above. The ICU was consulted, Dr. Suazo. He will arrived and placed a right femoral triple- lumen as well as an arterial line. The patient's mother was informed of the patient's critical but improved status. Nephrology is in route to coordinate dialysis in the ICU. Please refer to internal medicine as well as the sales support associate service notes for further management. Consults Time Called: 08 Consulting Physician: Dr. Suazo - Intensive Care Returned Call: [phone] Arrived at bedside Additional Consults: Time Called: 08 Consulted Physician: Dr. King - Nephrology Returned Call: [phone] Additional Comments: Dr. King - Nephrology was consulted through the ICU. He is en route to the hospital to perform dialysis. Time Called: 09 Consulted Physician: Dr. Peter JONES Returned Call: [phone] Additional Comments: The medical assistant internal medicine, Dr. Lucio, discussed the patient's case with Dr. Peter JONES. He has agreed to evaluate the patient for further management. Impression Primary Impression: Acute hyperkalemia Additional Impressions: Cardiac arrhythmia Fluid overload Critical Care I have personally spent greater than 90 minutes of critical care time in the direct management of this patient. This includes bedside care, interpretation of diagnostic studies, and testing, discussion with consultants, patient, and family members, and other required patient management activities. This 90 minutes is in excess of all separately billable procedures. Scribe Attestation The scribe's documentation has been prepared under my direction and personally reviewed by me in its entirety. I confirm that the note above accurately reflects all work, treatment, procedures, and medical decision making performed by me. Departure Information Dispostion Admitted as an inpatient (ICU) Referrals No Doctor, Assigned (PCP) Patient Instructions My [facility] Problem Qualifiers Additional Impressions: Cardiac arrhythmia Arrhythmia type: unspecified cardiac arrhythmia Qualified Codes: I49.9 - Cardiac arrhythmia, unspecified Fluid overload Hypervolemia type: unspecified Qualified Codes: E87.70 - Fluid overload, unspecified
--- NOTE | 2016-08-14 10:59 | DIAGNOSTIC IMAGING REPORT ---
CHEST ONE VIEW PORTABLE CLINICAL HISTORY: ETT position tube position COMPARISON STUDY: 08/14/2016 at 9:15 AM FINDINGS: Endotracheal tube is within 5 mm of the origin of the right mainstem bronchus. This should be pulled back. Pleural-parenchymal changes described previously are stable. Heart remains moderately enlarged. IMPRESSION: Endotracheal tube is within 5 mm of the origin of the right mainstem bronchus. It should be pulled back. All additional findings are stable. Electronically signed by: Gary Chun M.D. 08/14/2016 10:58 AM Dictated Date/Time: 08/14/2016 10:57 AM
--- NOTE | 2016-08-14 11:04 | Dialysis Progress Note ---
Hemodialysis Note Date of Service Aug 14, 2016. Chief Complaint Provide inpatient HD and assist w/ patient's medical management Review of Systems A complete review of systems was performed. Pertinent positives are noted above. All other systems are negative. Vital Signs Last 8 Hrs Date Time Temp Pulse Resp B/P (MAP) Pulse Ox O2 Delivery O2 Flow Rate FiO2 08/14/16 08:54 185 08/14/16 08:54 76 08/14/16 08:54 137 08/14/16 08:48 167 08/14/16 08:47 160 08/14/16 08:46 164 08/14/16 08:45 16 100 Mechanical Ventilator 100 08/14/16 08:45 166 08/14/16 08:44 166 08/14/16 08:43 164 08/14/16 08:41 165 08/14/16 08:40 159 08/14/16 08:39 147 08/14/16 08:38 118 08/14/16 08:37 105 08/14/16 08:36 112 08/14/16 08:35 126 08/14/16 08:34 104 08/14/16 08:33 178 08/14/16 08:32 208 08/14/16 08:30 37.0 200 10 145/114 92 Nasal Cannula 2.0 Last Recorded Weight Weight (Kilograms): 69.400 Family History Negative for CKD/ESRD Social History Smoking Status: Never smoker Drug Use: none Marital Status: single 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 Lives with mother Laboratory Results Past 24 Hours 08/14/16 07:37 Red Blood Count 3.69, Mean Corpuscular Volume 99.5, Mean Corpuscular Hemoglobin 30.1, Mean Corpuscular Hemoglobin Concent 30.2, Mean Platelet Volume 10.9, Neutrophils (%) (Auto) 70.4, Lymphocytes (%) (Auto) 19.8, Monocytes (%) (Auto) 6.2, Eosinophils (%) (Auto) 2.8, Basophils (%) (Auto) 0.4, Neutrophils # (Auto) 7.34, Lymphocytes # (Auto) 2.06, Monocytes # (Auto) 0.65, Eosinophils # (Auto) 0.29, Basophils # (Auto) 0.04 08/14/16 07:37 Test 08/14/16 07:37 08/14/16 08:58 08/14/16 09:12 08/14/16 10:09 White Blood Count 10.42 K/uL (4.8-10.8) Red Blood Count 3.69 M/uL (4.7-6.1) Hemoglobin 11.1 g/dL (14.0-18.0) Hematocrit 36.7 % (42-52) Mean Corpuscular Volume 99.5 fL (80-100) Mean Corpuscular Hemoglobin 30.1 pg (25-34) Mean Corpuscular Hemoglobin Concent 30.2 g/dl (32-36) Platelet Count 180 K/uL (130-400) Mean Platelet Volume 10.9 fL (7.4-10.4) Neutrophils (%) (Auto) 70.4 % Lymphocytes (%) (Auto) 19.8 % Monocytes (%) (Auto) 6.2 % Eosinophils (%) (Auto) 2.8 % Basophils (%) (Auto) 0.4 % Neutrophils # (Auto) 7.34 K/uL (1.4-6.5) Lymphocytes # (Auto) 2.06 K/uL (1.2-3.4) Monocytes # (Auto) 0.65 K/uL (0.11-0.59) Eosinophils # (Auto) 0.29 K/uL (0-0.5) Basophils # (Auto) 0.04 K/uL (0-0.2) RDW Standard Deviation 76.0 fL (36.4-46.3) RDW Coefficient of Variation 20.9 % (11.5-14.5) Immature Granulocyte % (Auto) 0.4 % Immature Granulocyte # (Auto) 0.04 K/uL (0.00-0.02) Anisocytosis PRESENT Anion Gap 13.0 mmol/L (3-11) Est Creatinine Clear Calc Drug Dose 8.5 ml/min Estimated GFR () 6.2 Estimated GFR (Non- 5.3 BUN/Creatinine Ratio 7.5 (10-20) Calcium Level 13.4 mg/dl (8.5-10.1) Magnesium Level 2.8 mg/dl (1.8-2.4) Total Bilirubin 1.3 mg/dl (0.2-1) Direct Bilirubin 0.5 mg/dl (0-0.2) Aspartate Amino Transf (AST/SGOT) 71 U/L (15-37) Alanine Aminotransferase (ALT/SGPT) 152 U/L (12-78) Alkaline Phosphatase 211 U/L (45-117) Total Creatine Kinase 65 U/L (39-308) Creatine Kinase MB 2.4 ng/ml (0.5-3.6) Creatine Kinase MB Ratio 3.7 (0-3.0) Total Protein 7.7 gm/dl (6.4-8.2) Albumin 3.2 gm/dl (3.4-5.0) Beta-Hydroxybutyric Acid 3.79 mg/dL (0.2-2.81) Thyroid Stimulating Hormone (TSH) 8.350 uIu/ml (0.300-4.500) Bedside Glucose 180 mg/dl (70-99) Bedside Troponin I < 0.030 ng/ml (0-0.045) Test 08/14/16 10:21 08/14/16 10:24 08/14/16 10:31 08/14/16 10:35 Bedside Glucose 67 mg/dl (70-99) Allergies Coded Allergies: Penicillins (Unverified Allergy, Severe, FACE SWELLS, 08/14/16) Amoxicillin (Verified Allergy, Unknown, ?, 05/15/16) Medications Current Inpatient Medications Medications (Trade) Dose Ordered Sig/Moises Route Start Time Stop Time Status Last Admin Dose Admin Sodium Chloride 155 meq/Dextrose 1,062 ml @ 50 mls/hr [id number] IV 08/14/16 09:00 09/13/16 08:59 Ioversol (Optiray 320) 100 ml UD PRN IV 08/14/16 09:45 08/18/16 09:44 Heparin Sodium (Porcine) (No Heparin In Dialysis) 1 ea TODAY@1000 N/A 08/14/16 10:00 08/14/16 23:59 Heparin Sodium (Porcine) (Heparin Sq 5000 Unit/0.5ml) 5,000 unit Q12H SQ 08/14/16 10:15 09/13/16 10:14 UNV Lorazepam (Ativan Inj) 0.5 mg Q4H PRN IV 08/14/16 10:15 09/13/16 10:14 Carvedilol (Coreg Tab) 50 mg BID PO 08/14/16 21:00 09/13/16 20:59 Gabapentin (Neurontin Cap) 100 mg BID PO 08/14/16 21:00 09/13/16 20:59 Levothyroxine Sodium (Synthroid Tab) 25 mcg DAILYBB PO 08/15/16 06:00 09/14/16 05:59 Nortriptyline HCl (Pamelor Cap) 50 mg DAILY PRN PO 08/14/16 10:15 09/13/16 10:14 Sertraline HCl (Zoloft Tab) 50 mg DAILY PO 08/15/16 09:00 09/14/16 08:59 Vancomycin HCl (Vancomycin 1gm/ 270ml Nss) 1 gm NOW STAT IV 08/14/16 10:24 08/14/16 10:25 UNV Hydralazine HCl (HydrALAZINE INJ) 15 mg Q6H PRN IV. 08/14/16 10:30 09/13/16 10:29 Vancomycin HCl (Consult) 1 ea UD PRN N/A 08/14/16 10:45 09/13/16 10:44 Ertapenem 500 gm/ Sodium Chloride 50 ml @ 120 mls/hr Q24H IV 08/14/16 14:00 08/21/16 13:59 UNV Impression (1) Cardiopulmonary arrest with successful resuscitation (2) Hyperkalemia (3) ESRD on hemodialysis (4) Hypertension Recommendations Patient seen at the initiation of HD. AVF is functioning well. Patient remains hemodynamically stable. Chest CT report reviewed. No new dissection reported. Case discussed w/ ICU team. Correction - patient did not suffer v- fib arrest. He required intubation and medical management of severe hyperkalemia
[2016-08-14] MEDS ORDERED: NiCARDipine IV 25 MG in SODIUM CHLORIDE 0.9% 250ML 240 ML IV PRN (11:15)
[2016-08-14] MEDS ORDERED: VANCOMYCIN INJ 1,000 MG in SODIUM CHLORIDE 0.9% 250ML 250 ML IV ONE (11:15)
[2016-08-14 11:27] LABS: PARTIAL THROMBOPLASTIN RATIO 0.9
[2016-08-14 11:29] LABS: INR 1.2 (0.9-1.1); PROTHROMBIN TIME (PATIENT) 13.3 SECONDS (9.0-12.0)
[2016-08-14] MEDS ORDERED: GLUCAGON FOR INJ 1 MG VIAL SQ PRN ×2 (11:30→13:30)
[2016-08-14] MEDS ORDERED: DEXTROSE 50% 50 ML SYR IV PRN ×2 (11:30→13:30)
[2016-08-14] MEDS ORDERED: GLUCOSE 10 TABS/TUBE PO PRN ×2 (11:30→13:30)
[2016-08-14] MEDS ORDERED: GLUCOSE 40% GEL 15 GM TUBE PO PRN ×2 (11:30→13:30)
[2016-08-14] MEDS ORDERED: LACTOBACILLUS ACIDOPHILUS 1 GM PACK PO SCH (11:30)
[2016-08-14] MEDS ORDERED: PHARMACY GLYCEMIC MGMT CONSULT PRN (11:47)
--- NOTE | 2016-08-14 12:59 | HISTORY & PHYSICAL EXAMINATION ---
DATE OF ADMISSION: 08/14/2016 CHIEF COMPLAINT: Collapse at home. HISTORY OF PRESENT ILLNESS: The patient is a 21-year-old pleasant male with past medical history of membranous glomerulonephritis and renal failure since he was 16 years old. The patient unfortunately failed multiple renal transplants in the past. He also has a history of prior admission in 01/2016 when he came with severe pleuritic pain. 2D echo initially revealed small pericardial effusion but repeat echo few days later showed increased pericardial effusion and also increased contour of proximal ascending aorta and a concern of possible type A aortic dissection. The patient was flew to [facility] under the care of Dr. Gary Morgan. Since then, the patient was not admitted to our facility, but as per discussion with his mother and staff, he was doing well until Sunday he missed dialysis because he slept through the morning and yesterday he told his mom that he was not feeling well but he did not elaborate on what symptoms did he have. This morning at 6:00 a.m. he called his mom and he was having diarrhea and vomiting. When his mom came to help him to come to the first floor, he sat in a chair. For a while, he was diaphoretic and pale. He continued to have vomiting. His mother told him "I'll take you to the hospital." When he stood up to go to the hospital, he collapsed. He did not completely lose consciousness, but he was very lethargic, so she called 911. When the patient was brought here to the ED, he was found to have severe electrolyte imbalance including potassium level of 9.4 and the patient went into ventricular arrhythmia while in the ED. The patient received multiple rounds of calcium, bicarbonate, insulin, and D50 as well. 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 PAST MEDICAL HISTORY: 1. Ascending aortic dissection in 02/2016 where he was in [facility] on ventilator and on ECMO for 11 days. 2. Vague history of DVT with questionable anticoagulation use at this point. 3. End-stage renal disease, failed multiple transplants. 4. History of diabetes. I do not see any medications for that on his med list. 5. Hypertension. 6. Electrolyte imbalance. FAMILY HISTORY: Positive for cancer and hypertension. SOCIAL HISTORY: Never smoked, never drank alcohol. Lives with his family. He is a student. HOME MEDICATIONS: 1. Vitamin C supplement. 2. Coreg 50 mg p.o. b.i.d. 3. Gabapentin 100 mg p.o. b.i.d. 4. Levothyroxine 25 mcg p.o. daily. 5. Lisinopril 20 mg p.o. daily. 6. Zoloft 50 mg p.o. daily. 7. Sevelamer carbonate. 8. P.r.n. nortriptyline. ALLERGIES: TO PENICILLIN, HE GETS HIVES AND SWELLING IN HIS FACE AND LIPS UPON EXPOSURE. PHYSICAL EXAMINATION: VITAL SIGNS: Temperature 37. Heart rate was ranging from 104-200 when he was having cardiac arrhythmia. Respiration ranging from 10-16. Blood pressure is 180/120. Pulse ox 92% on 2 liters nasal cannula upon arrival. GENERAL: Currently, the patient is intubated and sedated, appears to be calm, average built, currently not in acute distress. HEENT: No jaundice, no pallor with mucous membrane. NECK: Supple. HEART: S1, S2 normal. No gallop, rub or murmur. LUNGS: Decreased air entry bilaterally with scattered rhonchi. ABDOMEN: Soft, nontender, nondistended. NEUROLOGIC: Unable to evaluate as he is intubated and sedated, but he is moving all extremities upon arrival. MUSCULOSKELETAL: No muscle atrophy. He has a fistula in left upper arm. SKIN: No rash or erythema. IMAGING: Chest x-ray, right middle lobe infiltrate. LABORATORY DATA: White blood cell count 10.4, hemoglobin is 11, platelets 180. Blood sugar 520. BUN 90, creatinine 12. Sodium 133, calcium is 9.4, magnesium level is 2.8. ASSESSMENT: 1. Ventricular tachycardia secondary to below. 2. Hyperkalemia secondary to below. 3. End-stage renal disease, missed dialysis on Sunday. 4. Right lower lobe pneumonia, likely aspiration given history of vomiting, but also as the patient was feeling ill yesterday, it could be healthcare-associated pneumonia given that it is unlikely for him to get ill from missing dialysis only 1 day, so will treat empirically for healthcare-associated pneumonia. 5. Hypertension. 6. Diabetes. 7. History of aortic dissection. 8. History of deep vein thrombosis. 9. History of failed renal transplant x2. 10. History of hypothyroidism. PLAN: 1. Currently, the patient has received the initial management of hyperkalemia in ED and will go for emergent dialysis. 2. Intubated and sedated. Critical care is on board. 3. Treat the patient's pneumonia as healthcare associated until proven otherwise. Start him on vanco and meropenem. Currently will hold on treating legionella due to his cardiac arrhythmia, but given his diarrhea, we will recommend initiating azithromycin or levofloxacin after electrolyte correction. 4. Obtain sputum culture, cold agglutinin, legionella culture and blood cultures. 5. Hydralazine IV p.r.n. systolic blood pressure more than 180. 6. Start his Coreg 50 mg p.o. b.i.d. 7. Insulin sliding scale. 8. Hx of DVT was on coumadin but currently finished his course and not on any anticoagulation 9. Follow up electrolytes daily. 10. We will leave extubation decision up to the critical care team/Dr. Suazo. 11. Heparin for DVT prophylaxis. 12. Pepcid for GI prophylaxis. MTDD
[2016-08-14] MEDS ORDERED: NURSING VERBAL MED ORDER ONE (13:15)
--- NOTE | 2016-08-14 13:23 | Pharmacy Progress Note ---
Glycemic Control Intl Consult Date of Service Aug 14, 2016. Scope Glycemic Pharmacist consulted by Dr Lopez on 08/14/16 for glycemic control and to write orders per [facility] inpatient glycemic control protocol Objective Weight (Kilograms): 63.700 Accuchecks BSG (last 24hrs): Test 08/14/16 07:37 08/14/16 08:58 08/14/16 10:35 Random Glucose 520 mg/dl (70-99) Bedside Glucose 180 mg/dl (70-99) 67 mg/dl (70-99) Laboratory Data (last 24hrs) Test 08/14/16 07:37 Anion Gap 13.0 mmol/L BUN/Creatinine Ratio 7.5 Blood Urea Nitrogen 90 mg/dl Creatinine 12.00 mg/dl Potassium Level 9.4 mmol/L Sodium Level 133 mmol/L White Blood Count 10.42 K/uL Red Blood Count 3.69 M/uL Hemoglobin 11.1 g/dL Hematocrit 36.7 % Mean Corpuscular Volume 99.5 fL Mean Corpuscular Hemoglobin 30.1 pg Mean Corpuscular Hemoglobin Concent 30.2 g/dl Platelet Count 180 K/uL Mean Platelet Volume 10.9 fL Neutrophils (%) (Auto) 70.4 % Lymphocytes (%) (Auto) 19.8 % Monocytes (%) (Auto) 6.2 % Eosinophils (%) (Auto) 2.8 % Basophils (%) (Auto) 0.4 % Neutrophils # (Auto) 7.34 K/uL Lymphocytes # (Auto) 2.06 K/uL Monocytes # (Auto) 0.65 K/uL Eosinophils # (Auto) 0.29 K/uL Basophils # (Auto) 0.04 K/uL Recent Pertinent Medications Outpatient Anti-diabetic Regimen: * currently no diabetic meds ordered * A1c = ? % (has been ordered for 08/15 AM labs) Risk Factors for Insulin Resistance: * Diet: currently NPO * Mechanical Ventilation: Yes Assessment & Plan ASSESSMENT: * 21 yo male patient with h/o "steroid-induced DM" presented to the ER this AM with NVD, lethargy, and severe e-lyte abnormalities (hyperkalemia, hypercalcemia , etc) and subsequently developed ventricular arrhythmias * Patient's BSG was elevated in ER, random glucose 520 on 1st set of labs drawn. AG and BOHB slightly elevated as well. He was given two 10 unit Regular insulin boluses while in the ER. And was started on IV insulin infusion and D10 infusion for management of hyperkalemia and hyperglycemia. The patient is currently undergoing emergent HD. * BSG has subsequently dropped into the 60s and the IV insulin infusion was placed on hold * He does not appear to have been taking medication to treat DM prior to admission based upon med list collected. Certainly at this point it makes sense to monitor BSGs and provide sliding scale coverage if necessary given current stressors. I do not see the need for IV insulin infusion based upon current lab trends. PLAN FOR INPATIENT GLYCEMIC CONTROL: * Check A1c with next lab draw (interpret w/ caution given h/o ESRD and anemia) * No basal insulin at this time * Monitor BSGs Q 4 hrs and cover with Novolog SQ if elevated * Correction factor to 40 mg/dl/unit * No prandial insulin required at this time * Goal range Low 140 mg/dL - High 180 mg/dL * Please note that the plan above was derived based on current level of insulin resistance and hospital stress. These recommendations are appropriate for inpatient admission only. Plan of care upon discharge will need to be reassessed to avoid potential outpatient hypo/hyperglycemia. Thank you.
[2016-08-14] MEDS ORDERED: PROPOFOL IV EMULSION 10 MG/ML 100 ML VIAL IV PRN (13:30)
[2016-08-14] MEDS ORDERED: FENTANYL 1250MCG/250ML NSS IV PRN (13:30)
[2016-08-14] MEDS ORDERED: SODIUM CHLOR 0.9% IV SCH (14:00)
[2016-08-14] MEDS ORDERED: ERTAPENEM IV SCH (14:00)
[2016-08-14] MEDS ORDERED: AD VAN IV SCH (14:00)
[2016-08-14 14:39] LABS: CHOLESTEROL/HDL RATIO 3.2
--- NOTE | 2016-08-14 15:09 | Critical Care Consultation ---
Critical Care Consultation Date of Consultation: Aug 14, 2016. 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 The patient was originally diagnosed with MPGN at 16 and since that time he has required multiple modalities of dialysis. He had received three years of peritoneal dialysis for 3 years prior to a DDRT. He was doing well until a recent kidney transplant failure and has been on IHD since august of 2015. He apparently has received two renal transplants. He has been receiving IHD at the [facility] dialysis office in [place] on Sunday, and Sunday. He was due for dialysis on Sunday ( 2 days prior) and miss this because he had slept in. His next dialysis session was to be tomorrow. Today, he was suffering from diarrhea, feeling weak and diaphoretic and when he brought it up to his mother he had a syncopal episode. She then quickly contacted EMS. On arrival the patient had a ventricular arrhythmia on monitor and a code blue was called. RSI was completed and sinusoidal pattern was noted. Potassium was found to be 9.4, Creatinine was 12 and glucose was 520. He received a duoneb , Calcium gluconate 2 GM, 3 amps bicarb, Insulin and Kayexalate. After receiving the calcium gluconate the patent converted to NSR however remained extremely hypertensive. After receiving his insulin the POC glucose had improved to 180 . A right femoral central line was placed as well as a right arterial line. He was stabilized and admitted to the ICU. He was most recently admitted to the hospital here Feb [id number]. He was evaluated and found to have an ascending aortic aneurysm and quickly transferred to [facility]. While admitted he required multiple cardiac surgeries as well as ECMO x11 days. He was also taken off of his anti rejection medications in Feb 2016 by the transplant team per his mother as well as the coumadin for h/o DVT. He was on insulin for a short period of time while on these anti rejection medications however has not been on any medication for a year. He has recently been diagnosed with hypothyroidism. 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 Family History Cancer Hypertension Social History Smoking Status: Never Smoker Smokeless Tobacco Use: No Alcohol Use: none Drug Use: none Marital Status: single Housing Status: lives with family Occupation Status: student Allergies Coded Allergies: Penicillins (Unverified Allergy, Severe, FACE SWELLS, 08/14/16) Amoxicillin (Verified Allergy, Unknown, ?, 05/15/16) Home Medications Scheduled Ascorbic Acid (Vitamin C), 1 TAB PO DAILY Carvedilol (Coreg), 50 MG PO BID Gabapentin (Neurontin), 100 MG PO BID Levothyroxine Sodium (Synthroid), 25 MCG PO QAM Lisinopril (Lisinopril), 20 MG PO DAILY Sertraline (Zoloft), 50 MG PO DAILY Sevelamer Carbonate (Renvela), 1,600 MG PO TIDM Sevelamer Carbonate (Renvela), 800 MG PO DAILY Scheduled PRN Nortriptyline (Pamelor), 50 MG PO DAILY PRN for UNDECIDED Current Inpatient Medications Current Inpatient Medications Medications (Trade) Dose Ordered Sig/Moises Route Start Time Stop Time Status Last Admin Dose Admin Ioversol (Optiray 320) 100 ml UD PRN IV 08/14/16 09:45 08/18/16 09:44 Heparin Sodium (Porcine) (No Heparin In Dialysis) 1 ea TODAY@1000 N/A 08/14/16 10:00 08/14/16 23:59 Heparin Sodium (Porcine) (Heparin Sq 5000 Unit/0.5ml) 5,000 unit Q12H SQ 08/14/16 21:00 09/13/16 20:59 Lorazepam (Ativan Inj) 0.5 mg Q4H PRN IV 08/14/16 10:15 09/13/16 10:14 Carvedilol (Coreg Tab) 50 mg BID PO 08/14/16 21:00 09/13/16 20:59 Future Hold Gabapentin (Neurontin Cap) 100 mg BID PO 08/14/16 21:00 09/13/16 20:59 Future Hold Levothyroxine Sodium (Synthroid Tab) 25 mcg DAILYBB PO 08/15/16 06:00 09/14/16 05:59 Future Hold Nortriptyline HCl (Pamelor Cap) 50 mg DAILY PRN PO 08/14/16 10:15 09/13/16 10:14 Future Hold Sertraline HCl (Zoloft Tab) 50 mg DAILY PO 08/15/16 09:00 09/14/16 08:59 Future Hold Hydralazine HCl (HydrALAZINE INJ) 15 mg Q6H PRN IV. 08/14/16 10:30 09/13/16 10:29 Nicardipine HCl 25 mg/Sodium Chloride 250 ml @ 0 mls/hr Q0M PRN IV 08/14/16 11:15 09/13/16 11:14 Famotidine 20 mg/ Dextrose 102 ml @ 200 mls/hr DAILY IV 08/15/16 09:00 09/14/16 08:59 Lactobacillus Acidophilus (Lactinex Granules Pack) 1 gm TIDM PO 08/14/16 11:30 09/13/16 11:29 Future Hold Glucose (Glucose 40% Gel) 15-30 GRAMS 15 GRAMS... UD PRN PO 08/14/16 11:30 09/13/16 11:29 Glucose (Glucose Chew Tab) 4-8 Tablets 4 Tabl... UD PRN PO 08/14/16 11:30 09/13/16 11:29 Dextrose (Dextrose 50% 50ML Syringe) 25-50ML OF 50% DW IV FOR... UD PRN IV 08/14/16 11:30 09/13/16 11:29 Glucagon (Glucagon Inj) 1 mg UD PRN SQ 08/14/16 11:30 09/13/16 11:29 Miscellaneous Information (Consult Glycemic Management Pharmacy) 1 ea UD PRN N/A 08/14/16 11:47 09/13/16 11:46 Insulin Human Regular 250 units/ Sodium Chloride 252.5 ml @ 6.8 mls/hr TODAY@0915 ONCE IV 08/14/16 09:15 08/15/16 22:22 Insulin Aspart (novoLOG ASPART) SLIDING SCALE Q4 SC 08/14/16 16:00 09/13/16 15:59 Glucose (Glucose 40% Gel) 15-30 GRAMS 15 GRAMS... UD PRN PO 08/14/16 13:30 09/13/16 13:29 Glucose (Glucose Chew Tab) 4-8 Tablets 4 Tabl... UD PRN PO 08/14/16 13:30 09/13/16 13:29 Dextrose (Dextrose 50% 50ML Syringe) 25-50ML OF 50% DW IV FOR... UD PRN IV 08/14/16 13:30 09/13/16 13:29 Glucagon (Glucagon Inj) 1 mg UD PRN SQ 08/14/16 13:30 09/13/16 13:29 Fentanyl Citrate 250 ml @ 0 mls/hr Q0M PRN IV 08/14/16 13:30 08/28/16 13:29 Propofol (Diprivan Iv Emulsion 100ml Vial) 1 dose UD PRN IV 08/14/16 13:30 08/17/16 13:29 Review of Systems Unable to complete because of intubation/ sedation Physical Exam Date Time Temp Pulse Resp B/P (MAP) Pulse Ox O2 Delivery O2 Flow Rate FiO2 08/14/16 14:00 89 126/80 08/14/16 13:45 89 127/80 08/14/16 13:30 84 118/84 08/14/16 13:15 86 114/73 08/14/16 13:00 87 8 100 114/72 08/14/16 13:00 87 115/72 08/14/16 12:45 87 117/74 08/14/16 12:45 88 11 100 118/73 08/14/16 12:31 89 13 100/60 98 124/79 08/14/16 12:30 91 124/79 08/14/16 12:15 90 127/80 08/14/16 12:01 90 18 110/72 100 132/85 08/14/16 12:00 60 08/14/16 12:00 94 132/85 08/14/16 12:00 Mechanical Ventilator 60 08/14/16 11:45 87 100 120/77 08/14/16 11:45 87 120/77 08/14/16 11:35 89 105/62 100 130/82 08/14/16 11:31 83 105/62 100 131/82 08/14/16 11:30 88 131/83 08/14/16 11:26 36.5 83 151/103 (119) 08/14/16 11:15 83 161/100 08/14/16 11:15 84 22 100 162/99 08/14/16 11:01 81 15 148/100 100 76/67 08/14/16 11:00 82 148/100 08/14/16 10:48 82 13 151/103 100 181/110 08/14/16 10:47 84 13 155/108 100 180/109 08/14/16 10:45 83 16 100 184/111 08/14/16 10:45 60 08/14/16 10:30 86 11 100 189/116 08/14/16 10:30 100 Mechanical Ventilator 60 08/14/16 09:59 60 08/14/16 09:55 36.5 84 12 148/110 100 08/14/16 09:15 89 12 195/111 100 Mechanical Ventilator 08/14/16 09:00 74 12 182/95 100 Mechanical Ventilator 08/14/16 08:56 68 12 229/115 100 Mechanical Ventilator 08/14/16 08:54 185 08/14/16 08:54 76 08/14/16 08:54 211 13 87/61 100 Mechanical Ventilator 08/14/16 08:54 137 08/14/16 08:51 199 12 79/40 96 Mechanical Ventilator 08/14/16 08:48 167 08/14/16 08:47 160 08/14/16 08:46 164 08/14/16 08:45 60 08/14/16 08:45 16 100 Mechanical Ventilator 100 08/14/16 08:45 166 08/14/16 08:44 166 08/14/16 08:43 164 08/14/16 08:41 165 08/14/16 08:40 159 08/14/16 08:39 147 08/14/16 08:38 118 08/14/16 08:37 105 08/14/16 08:36 112 08/14/16 08:36 117 20 145/114 92 Nasal Cannula 08/14/16 08:35 126 08/14/16 08:34 104 08/14/16 08:33 178 08/14/16 08:32 36.8 107 08/14/16 08:32 208 08/14/16 08:30 37.0 200 10 145/114 92 Nasal Cannula 2.0 General Appearance: mild distress, thin, other (diaphoretic) Head: normocephalic Eyes: PERRLA ENT: normal ear exam (inspection) Neck: normal range of motion, trachea midline Respiratory: no respiratory distress, other (decreased to bases) Cardiovasular: regular rate/rhythm, normal S1S2, normal peripheral pulses, systolic murmur (3/6), other (scar on chest noted) Abdomen: non tender, normal bowel sounds, other (scars on abd noted) Back: normal inspection Upper Extremities: no edema, normal ROM, other (fistula right forearm) Lower Extremities: no edema, normal ROM Neuro: other (under sedation) Laboratory Results Last 24 Hours Test 08/14/16 07:37 08/14/16 08:58 08/14/16 09:12 08/14/16 10:35 White Blood Count 10.42 K/uL Red Blood Count 3.69 M/uL Hemoglobin 11.1 g/dL Hematocrit 36.7 % Mean Corpuscular Volume 99.5 fL Mean Corpuscular Hemoglobin 30.1 pg Mean Corpuscular Hemoglobin Concent 30.2 g/dl Platelet Count 180 K/uL Mean Platelet Volume 10.9 fL Neutrophils (%) (Auto) 70.4 % Lymphocytes (%) (Auto) 19.8 % Monocytes (%) (Auto) 6.2 % Eosinophils (%) (Auto) 2.8 % Basophils (%) (Auto) 0.4 % Neutrophils # (Auto) 7.34 K/uL Lymphocytes # (Auto) 2.06 K/uL Monocytes # (Auto) 0.65 K/uL Eosinophils # (Auto) 0.29 K/uL Basophils # (Auto) 0.04 K/uL RDW Standard Deviation 76.0 fL RDW Coefficient of Variation 20.9 % Immature Granulocyte % (Auto) 0.4 % Immature Granulocyte # (Auto) 0.04 K/uL Anisocytosis PRESENT Sodium Level 133 mmol/L Potassium Level 9.4 mmol/L Chloride Level 97 mmol/L Carbon Dioxide Level 23 mmol/L Anion Gap 13.0 mmol/L Blood Urea Nitrogen 90 mg/dl Creatinine 12.00 mg/dl Est Creatinine Clear Calc Drug Dose 8.5 ml/min Estimated GFR () 6.2 Estimated GFR (Non- 5.3 BUN/Creatinine Ratio 7.5 Random Glucose 520 mg/dl Calcium Level 13.4 mg/dl Magnesium Level 2.8 mg/dl Total Bilirubin 1.3 mg/dl Direct Bilirubin 0.5 mg/dl Aspartate Amino Transf (AST/SGOT) 71 U/L Alanine Aminotransferase (ALT/SGPT) 152 U/L Alkaline Phosphatase 211 U/L Total Creatine Kinase 65 U/L Creatine Kinase MB 2.4 ng/ml Creatine Kinase MB Ratio 3.7 Total Protein 7.7 gm/dl Albumin 3.2 gm/dl Beta-Hydroxybutyric Acid 3.79 mg/dL Thyroid Stimulating Hormone (TSH) 8.350 uIu/ml Bedside Glucose 180 mg/dl 67 mg/dl Bedside Troponin I < 0.030 ng/ml Test 08/14/16 10:58 08/14/16 11:30 08/14/16 13:57 Prothrombin Time 13.3 SECONDS Prothromb Time International Ratio 1.2 Activated Partial Thromboplast Time 22.5 SECONDS Partial Thromboplastin Ratio 0.9 Phosphorus Level 9.0 mg/dl Total Creatine Kinase 102 U/L Diagnostic Results TWO VIEW CHEST CLINICAL HISTORY: Atypical chest pain. FINDINGS: PA and lateral chest radiographs are compared to study dated 08/01/2015. Correlation is made with abdominal CT dated 08/01/2015. The cardiac silhouette is mildly enlarged. There is a small right pleural effusion with minimal right basilar consolidation. This is only seen on the lateral projection. The left lung appears clear. There is no pneumothorax. The bony thorax appears intact. IMPRESSION: 1. Small right pleural effusion with minimal right basilar consolidation. This could present atelectasis versus a mild infectious or inflammatory pneumonitis. Clinical correlation will be required. 2. The cardiac silhouette is mildly enlarged. This may represent pericardial effusion which was shown on the 08/01/[address] [~ rep ct add3]] CT ANGIOGRAM OF THE CHEST CLINICAL HISTORY: Chest pain COMPARISON STUDY: No previous studies for comparison. TECHNIQUE: Following the IV administration of 82 mL of Optiray-320, CT angiogram of the thorax was performed from the thoracic inlet to the lung bases utilizing the pulmonary embolus protocol. Images are reviewed in the axial, sagittal, and coronal planes. IV contrast was administered without complication. MIP imaging was performed. CT DOSE: 208.91 mGy.cm FINDINGS: No pathologically enlarged axillary mediastinal or hilar lymph nodes were visualized. There was no evidence of thoracic aortic dilatation. There were no pulmonary artery filling defects to indicate acute pulmonary embolism. There are small bilateral pleural effusions. There are dependent opacities, likely atelectatic. The heart is enlarged. There is a small pericardial effusion which appears slightly larger than on the prior study dated 08/01/2015. The kidneys appear atrophic. IMPRESSION: 1. No evidence of acute pulmonary embolism 2. Small bilateral pleural effusions and bibasilar atelectasis 3. Cardiomegaly. Pericardial effusion. CT ANGIOGRAM OF THE CHEST COMBO CLINICAL HISTORY: Unresponsive. COMPARISON STUDY: Chest CT dated 02/24/2016. Chest x-ray dated 08/14/2016. TECHNIQUE: Before and following the IV administration of 119 cc of Optiray 320, CT angiogram of the chest was performed from the thoracic inlet to the upper abdomen utilizing the dissection protocol. Images are reviewed in the axial, sagittal, and coronal planes. 3-D MIPS images are created and assessed. IV contrast was administered without complication. The examination is significant degraded by motion artifact as well as by streak artifact from the arms which could not be elevated above the chest. CT DOSE: 1143.22 mGycm FINDINGS: Thyroid: Imaged portions of the thyroid gland are normal in size and attenuation. Thoracic aorta: Postoperative changes identified involving the ascending thoracic aorta. The thoracic aorta is normal in caliber and demonstrates standard 3-vessel arch anatomy. No dissection is seen. The arch vessels are widely patent. A dialysis fistula is suggested in the left upper extremity which is only partially visualized. Pulmonary vasculature: The pulmonary trunk is dilated measuring 3.6 cm in transverse diameter. This suggests pulmonary artery hypertension. There are no central filling defects identified in the pulmonary vessels to suggest pulmonary embolus. Note that this examination was not specifically protocoled to assess for pulmonary emboli. Heart: The patient is status post midline sternotomy. The heart is enlarged and without pericardial effusion. Lungs and pleural spaces: The endotracheal tube terminates in the right mainstem bronchus. There are small to moderate right and small left pleural effusions with bibasilar consolidation. Perihilar airspace opacities and diffuse intralobular septal thickening are observed. The trachea is clear. No pneumothorax is seen. Mediastinum: There are mildly enlarged mediastinal lymph nodes. A paratracheal node on image #82 measures 12 mm in short axis. Leeanne: Clear. Axillae: There is no axillary lymphadenopathy. Upper abdomen: There is distention of the IVC and hepatic veins with reflux of contrast indicating cardiac dysfunction. The cahto kidneys are partially imaged and markedly atrophic. An enteric tube terminates in the stomach. See report of abdominal CT performed concurrently for detailed intra-abdominal findings. Skeletal structures: No lytic or blastic bony lesions are seen. IMPRESSION: 1. The endotracheal tube terminates in the right mainstem bronchus. Repositioning is indicated. 2. Postoperative change is identified in the ascending thoracic aorta. No aneurysm or dissection is seen on today's examination. 3. Cardiomegaly with evidence of congestive failure and interstitial edema. 4. Small to moderate right and small left pleural effusions with associated consolidation. This likely represents atelectasis. Clinical correlation will be required. Superimposed pneumonia would be impossible to exclude by imaging. 5. Additional findings as above. ABDOMEN AND PELVIS CTA for AORTIC DISSECTION CT DOSE: HISTORY: Cardiac arrest. Assess for dissection. TECHNIQUE: Multiaxial CT images of the abdomen and pelvis were performed both before and after the intravenous administration of contrast to evaluate the aorta. Maximal intensity projection images were also obtained. COMPARISON STUDY: Abdomen and pelvis CT 08/01/2015. FINDINGS: The heart remains enlarged. Small bilateral pleural effusions, right greater than left. Pulmonary edema and patchy bibasilar airspace opacities. No pneumoperitoneum. No pneumatosis. Nasogastric tube terminates in the stomach. Normal caliber abdominal aorta with no evidence for dissection. The celiac, mesenteric, renal, and iliac arteries are widely patent. Right common femoral arterial and venous catheters are noted. The cahto kidneys are atrophic. There is a right lower quadrant renal transplant. This enhances normally. Bladder is decompressed. Small amount of ascites. Retrograde flow of contrast into the hepatic veins due to the cardiac decompensation. No hepatic or splenic masses. The gallbladder is unremarkable. Mild peripancreatic edema. The pancreas enhances normally. A few prominent retroperitoneal lymph nodes are again noted. No bowel wall thickening or obstruction. IMPRESSION: 1. No evidence for an aortic dissection. 2. Small amount of ascites and small bilateral pleural effusions. 3. Patchy bibasilar airspace opacities which are nonspecific. This could represent atelectasis or pneumonia. 4. Pulmonary edema. 5. Mild peripancreatic edema. This is likely due to the patient's diffuse edematous state. However, recommend correlation with pancreatic enzymes to exclude the less likely possibility of acute pancreatitis. 6. Nasogastric tube terminates in the stomach. 7. No bowel wall thickening or obstruction. 8. Right lower quadrant transplant kidney. No hydronephrosis. Assessment & Plan 1. Metabolic encephalopathy; multifactorial including elevated potassium 2. Acute hypoxic resp failure secondary to metabolic encephalopathy , GCS < 8 3. 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 H/O Aortic dissection s/p repair 5. H/O DVT 6. Hypothyroidism 8. 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 Anemia of chronic disease, history of multiple transfusions NVS - propofol and fentanyl for sedation CVS - considering recent history of aortic dissection will control elevated bp with Nicardipine drip with a goal of 120/80 - will hold carvedilol for now - continue to monitor RVS - R - 12, TV .50, PEEP 5, FIO2- 60 - CXR in am GI - NPO for now - pantoprazole 40 mg daily - monitor I&O - Nephrology has been consulted, dialysis currently underway - recheck PRP after dialysis complete ID -Will hold abx for now and reassess clinical need HEME - follow hgb, currently 11 and approx BL for patient ENDO - Did not tolerate the insulin infusion, novolog is on board - Will restart Synthroid tomorrow and consider an adjustment in dose as TSH is > 8 DVT Prophylaxis - heparin bid - INR was 1.2 - has not been on the coumadin Resident Physician Supervision Note: Dr. Baird was resident physician during care of patient. I separately evaluated patient and did history and exam. I discussed the case with the resident and generally agree with the findings and plan. Emergently intubated in the ED, central line and arterial line placed in ED. Missed one day of dialysis, was initially sinusoidal upon arrival in the emergency room, requiring emergent medical management of hyperkalemia and emergent dialysis. Reviewed records from [facility], recent aortic dissection status post aortic root repair. History of DVT, provoked, and right upper extremity. He shouldn't had new swelling in that upper extremity a venous duplex was obtained. Results of x-rays revealed a nonocclusive thrombus within the right basilic and cephalic veins. 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 Was reportedly significant difficulty in maintaining a therapeutic coagulation level and admitted previously admitted for being supratherapeutic. Both the mother and the patient were aware that the DVT was present and this was provoked, given that he is 3 months removed from the incident and he had been previously removed from his anticoagulation I am not inclined to start anticoagulation at this time. This is also in the setting of having a recent CTA to further evaluate for complications of his aortic repair and there was no report of PE, therefore I doubt there is any form of hemodynamically significant PE. This is obviously a risk benefit ratio and at this point given inconclusive evidence for failure of Coumadin or extension of a DVT with subsequent PE feel the risks of anticoagulation outweigh the benefits. I have personally spent 65 minutes of critical care time in the direct management of this patient. This is a life/limb threatening event. This includes time spent evaluating patient, direct bedside care, chart review, placing orders, interpretation of diagnostic studies, discussion with consultants, patient, and family members, as well as other required patient management activities. This time is exclusive of all separately billable procedures, and teaching time and separate from and in addition to any other critical care service time. Documented By: Cabrera Suazo,
[2016-08-14 15:57] LABS: ISTAT CARBON DIOXIDE 25 mEq/l (24-31); ISTAT CHLORIDE 100 mEq/L (101-112); ISTAT CREATININE 11.9 mg/dl; ISTAT HEMATOCRIT 36 % (42-52); ISTAT HEMOGLOBIN 12.2 g/dl (14.0-18.0); ISTAT IONIZED CALCIUM 1.53 mmol/l; ISTAT SODIUM 131 mEq/L (135-144)
[2016-08-14 16:51] LABS: CREATININE 4.1 mg/dl (0.60-1.40)
[2016-08-14 16:52] LABS: CALCIUM 7.7 mg/dl (8.5-10.1); POTASSIUM 3.9 mmol/L (3.5-5.1)
[2016-08-14] MEDS: INSULIN ASPART 100 UNITS/ML 3 ML PEN SC SCH ×2 (16:53→20:00)
--- NOTE | 2016-08-14 18:06 | DIAGNOSTIC IMAGING REPORT ---
ULTRASOUND RIGHT VENOUS DOPPLER UPR EXT UNILAT CLINICAL HISTORY: Right arm swelling COMPARISON STUDY: No previous studies for comparison. FINDINGS: No thrombus was visualized in the right internal jugular, clavian, axillary, brachial, radial, or ulnar veins. There is nonocclusive thrombus within the right basilic and cephalic veins at the level the antecubital fossa. There is right upper extremity edema present. There is a suspected right internal jugular catheter. IMPRESSION: 1. Nonocclusive thrombus within the right basilic and cephalic veins 2. Right upper extremity edema Electronically signed by: Santosh Reed M.D. 08/14/2016 6:04 PM Dictated Date/Time: 08/14/2016 6:02 PM
[2016-08-14] MEDS ORDERED: PANTOprazole INJ 40 MG in SYRINGE 0 ML IV SCH (21:00)
[2016-08-14] MEDS ORDERED: GABAPENTIN 100 MG CAP PO SCH (21:00)
[2016-08-14] MEDS: HEPARIN SOD 5000 UNIT/0.5 ML CARP SQ SCH (21:19)
[2016-08-15] VITALS (16 sets, daily range): BP systolic 146–173; BP diastolic 87–108; PULSE 81–100; TEMP 36.6–36.9; O2SAT 92–98
[2016-08-15] MEDS: CARVEDILOL 25 MG TAB PO SCH ×3 (00:49→21:50)
[2016-08-15 02:35] LABS: BASO % 0.3 %; BASO ABS # 0.02 K/uL (0-0.2); EOS % 5.2 %; HEMATOCRIT 31.2 % (42-52); IG% 0.1 %; LYMPH % 11.3 %; LYMPH ABS # 0.76 K/uL (1.2-3.4); MEAN CELL VOLUME 98.4 fL (80-100); MEAN CORPUSCULAR HEMOGLOBIN 31.2 pg (25-34); MEAN CORPUSCULAR HGB CONC 31.7 g/dl (32-36); MEAN PLATELET VOLUME 10.2 fL (7.4-10.4); MONO % 9.1 %; PLATELET COUNT 121 K/uL (130-400); RED BLOOD COUNT 3.17 M/uL (4.7-6.1); WHITE BLOOD COUNT 6.71 K/uL (4.8-10.8)
[2016-08-15 02:44] LABS: INR 1.2 (0.9-1.1); PROTHROMBIN TIME (PATIENT) 13.4 SECONDS (9.0-12.0)
[2016-08-15 03:03] LABS: ANISOCYTOSIS PRESENT; COMPLETE YES
[2016-08-15 03:09] LABS: ALB/GLOB RATIO 0.8 (0.9-2); ALKALINE PHOSPHATASE 172 U/L (45-117); ALT/SGPT 174 U/L (12-78); AST/SGOT 100 U/L (15-37); BLOOD UREA NITROGEN 27 mg/dl (7-18); BUN/CREATININE RATIO 4.9 (10-20); CALCIUM 7.9 mg/dl (8.5-10.1); CARBON DIOXIDE 27 mmol/L (21-32); CHLORIDE 103 mmol/L (98-107); GLUCOSE 118 mg/dl (70-99); PHOSPHORUS 6.4 mg/dl (2.5-4.9); SODIUM 139 mmol/L (136-145)
[2016-08-15] MEDS: INSULIN ASPART 100 UNITS/ML 3 ML PEN SC SCH ×3 (04:00→07:51)
[2016-08-15] MEDS ORDERED: LEVOTHYROXINE 25 MCG TAB PO SCH (06:00)
[2016-08-15 06:35] LABS: ESTIMATED AVERAGE GLUCOSE 114 mg/dl; HA1C FLAG Normal (Normal)
[2016-08-15] MEDS ORDERED: FAMOTIDINE IV INJ 20 MG in DEXTROSE 5% 100ML 100 ML IV SCH (09:00)
[2016-08-15] MEDS ORDERED: SERTRALINE HCL 50 MG TAB PO SCH (09:00)
[2016-08-15] MEDS ORDERED: NORTRIPTYLINE HCL 25 MG CAP PO PRN (09:45)
[2016-08-15] MEDS ORDERED: ACETAMINOPHEN 500 MG TAB PO ONE (10:01)
[2016-08-15] MEDS: GABAPENTIN 100 MG CAP PO SCH ×2 (10:06→21:50)
[2016-08-15] MEDS: LACTOBACILLUS ACIDOPHILUS 1 GM PACK PO SCH ×2 (10:06→18:18)
[2016-08-15] MEDS: SERTRALINE HCL 50 MG TAB PO SCH (10:11)
[2016-08-15] MEDS: LEVOTHYROXINE 25 MCG TAB PO SCH (10:11)
[2016-08-15] MEDS: PANTOprazole SOD 40 MG TAB PO SCH (10:11)
[2016-08-15] MEDS: HEPARIN SOD 5000 UNIT/0.5 ML CARP SQ SCH ×2 (10:12→21:51)
[2016-08-15 10:56] LABS: URINE APPEARANCE CLEAR (CLEAR); URINE BILIRUBIN NEG (NEG); URINE COLOR YELLOW; URINE NITRITE NEG (NEG); URINE PH 7.5 (4.5-7.5); URINE SPECIFIC GRAVITY 1.019 (1.000-1.030); UROBILINOGEN NEG (NEG); ZZUR CULT IF INDIC CLEAN CATCH YES
[2016-08-15] MEDS ORDERED: INSULIN ASPART 100 UNITS/ML 3 ML PEN SC SCH (11:00)
[2016-08-15 11:39] LABS: MANUAL MICROSCOPIC REQUIRED? NO; REVIEW REQ? YES
[2016-08-15 11:40] LABS: SULFASALICYLIC ACID POS (NEG)
[2016-08-15] MEDS ORDERED: NURSING VERBAL MED ORDER ONE ×2 (11:45→15:30)
[2016-08-15 12:05] LABS: URINE EPITHELIAL CELL AUTO 0-5 /lpf (0-5)
--- NOTE | 2016-08-15 14:08 | Hospitalist Progress Note ---
Hospitalist Progress Note Date of Service Aug 15, 2016. (Khadijah Zelaya, BEVC) Subjective Pt evaluation today including: conversation w/ patient, conversation w/ family , physical exam, chart review, lab review, review of studies, conversation w/ erp implementation consultant ([employer] Resident - Dr. Baird ), review of inpatient medication list Patient seen and evaluated. Alert and oriented. Tolerating diet. Reporting RUE edema and pain that started yesterday but worsened. Per nursing evaluation there is improvement today in size, cap refill, and ability to assess pulses. H/O LLE compartment syndrome S/P Fasciotomy that mother reports occurred when he had heart failure and required ECMO. Per outside records L saphenous vein was harvested from LLE. Also reporting pain in R femoral line. Electrolytes improved. Reporting and cough and sputum production. Sputum cx sent. Constitutional: + problem reported (headache), No fever, No chills ENT: No nasal symptoms, No sore throat Respiratory: + cough, + sputum, No shortness of breath Cardiovascular: No chest pain, No orthopnea Abdomen: No pain, No nausea, No vomiting, No diarrhea, No constipation, No GI bleeding Musculoskeletal: + swelling (RUE), No calf pain Male : No dysuria Neurologic: No numbness/tingling (Khadijah Zelaya, MERRY-C) Medications Current Inpatient Medications Medications (Trade) Dose Ordered Sig/Moises Route Start Time Stop Time Status Last Admin Dose Admin Ioversol (Optiray 320) 100 ml UD PRN IV 08/14/16 09:45 08/18/16 09:44 Heparin Sodium (Porcine) (Heparin Sq 5000 Unit/0.5ml) 5,000 unit Q12H SQ 08/14/16 21:00 09/13/16 20:59 08/15/16 10:12 5,000 UNIT Lorazepam (Ativan Inj) 0.5 mg Q4H PRN IV 08/14/16 10:15 09/13/16 10:14 Carvedilol (Coreg Tab) 50 mg BID PO 08/14/16 21:00 09/13/16 20:59 Future hold 08/15/16 10:11 50 MG Hydralazine HCl (HydrALAZINE INJ) 15 mg Q6H PRN IV. 08/14/16 10:30 09/13/16 10:29 Glucose (Glucose 40% Gel) 15-30 GRAMS 15 GRAMS... UD PRN PO 08/14/16 11:30 09/13/16 11:29 Dextrose (Dextrose 50% 50ML Syringe) 25-50ML OF 50% DW IV FOR... UD PRN IV 08/14/16 11:30 09/13/16 11:29 Glucagon (Glucagon Inj) 1 mg UD PRN SQ 08/14/16 11:30 09/13/16 11:29 Miscellaneous Information (Consult Glycemic Management Pharmacy) 1 ea UD PRN N/A 08/14/16 11:47 09/13/16 11:46 Levothyroxine Sodium (Synthroid Tab) 25 mcg DAILYBB PO 08/15/16 06:00 09/14/16 05:59 08/15/16 10:11 25 MCG Gabapentin (Neurontin Cap) 100 mg BID PO 08/15/16 10:00 09/14/16 09:59 08/15/16 10:06 100 MG Nortriptyline HCl (Pamelor Cap) 50 mg DAILY PRN PO 08/15/16 09:45 09/14/16 09:44 Sertraline HCl (Zoloft Tab) 50 mg DAILY PO 08/15/16 10:00 09/14/16 09:59 08/15/16 10:11 50 MG Lactobacillus Acidophilus (Lactinex Granules Pack) 1 gm TIDM PO 08/15/16 11:30 09/14/16 11:29 08/15/16 10:06 1 GM Insulin Aspart (novoLOG ASPART) SLIDING SCALE ACHS SC 08/15/16 11:00 09/14/16 10:59 Pantoprazole Sodium (Protonix Tab) 40 mg QAM PO 08/15/16 10:00 09/14/16 09:59 08/15/16 10:11 40 MG Oxycodone HCl (Roxicodone Immediate Rel Tab) 5 mg Q6H PRN PO 08/15/16 12:30 08/29/16 12:29 (Khadijah Zelaya PA-C) Objective Vital Signs Date Time Temp Pulse Resp B/P (MAP) Pulse Ox O2 Delivery O2 Flow Rate FiO2 08/15/16 12:21 36.9 08/15/16 12:00 Room Air 08/15/16 12:00 96 27 152/98 94 08/15/16 11:05 97 19 173/99 95 08/15/16 11:01 94 18 173/99 96 08/15/16 10:01 100 22 156/98 97 08/15/16 09:01 96 17 166/108 95 08/15/16 08:08 36.9 08/15/16 08:01 84 16 154/89 97 08/15/16 08:00 Nasal Cannula 2.0 08/15/16 07:01 86 15 162/89 97 08/15/16 06:00 89 18 149/87 (107) 98 Nasal Cannula 2.0 08/15/16 04:00 Nasal Cannula 2.0 08/15/16 04:00 36.8 89 18 148/89 (108) 97 Nasal Cannula 2.0 08/15/16 02:00 97 20 157/95 (115) 97 Nasal Cannula 2.0 08/15/16 00:00 36.6 95 16 161/94 (116) 92 Room Air 08/15/16 00:00 Nasal Cannula 2.0 08/14/16 23:00 105 167/93 (117) 93 Room Air 08/14/16 22:32 99 25 153/89 (110) 94 Room Air 08/14/16 22:00 93 21 152/84 (106) 93 Room Air 08/14/16 21:25 98 19 156/85 (108) 93 Room Air 08/14/16 21:00 88 20 136/80 (98) 96 Nasal Cannula 2.0 08/14/16 20:00 36.7 88 22 147/85 (105) 97 Nasal Cannula 2.0 08/14/16 20:00 Nasal Cannula 2.0 08/14/16 19:00 89 19 152/91 (111) 99 08/14/16 18:00 35 08/14/16 18:00 81 16 99 150/90 08/14/16 17:00 77 14 99 102/66 08/14/16 16:45 80 12 97 104/67 08/14/16 16:30 84 10 97 110/71 08/14/16 16:15 83 12 100 110/70 08/14/16 16:01 84 12 99/52 113/70 08/14/16 16:00 Mechanical Ventilator 60 6/19/17 16:00 60 08/14/16 16:00 36.5 08/14/16 15:45 86 12 100 114/70 08/14/16 15:31 88 11 105/55 100 125/79 08/14/16 15:15 89 11 100 127/80 08/14/16 15:05 36.4 90 125/77 (93) 08/14/16 15:01 91 11 106/58 100 131/80 08/14/16 15:00 89 130/80 08/14/16 14:45 99 140/87 08/14/16 14:45 103 15 100 140/90 08/14/16 14:31 85 11 105/53 126/79 08/14/16 14:30 87 125/79 08/14/16 14:15 87 126/81 08/14/16 14:15 87 11 99 126/79 (Khadijah Zelaya PA-C) Physical Exam General Appearance: no apparent distress, + pertinent finding (flat affect; intermittent eye contact; soft-spoken voice) Eyes: sclerae normal ENT: hearing grossly normal Neck: supple, no JVD, trachea midline, + pertinent finding (L IJ placed) Respiratory/Chest: lungs clear, normal breath sounds, no respiratory distress, no accessory muscle use Cardiovascular: regular rate, rhythm, no gallop, no murmur Abdomen: normal bowel sounds, non tender, soft Extremities: no pedal edema, no calf tenderness, + swelling (edematous RUE with blistering of extensor surface of forearm and around tattoo; 2+ radial and ulnar pulses; rapid cap refill; sensation intact), + pertinent finding (well- healed LLE fasciotomy scar) Neurologic/Psychiatric: alert, oriented x 3 Skin: normal color, warm/dry (Khadijah Zelaya, PA-C) Laboratory Results Last 24 Hours Test 08/14/16 16:12 08/14/16 18:44 08/14/16 20:19 08/15/16 00:03 Sodium Level 139 mmol/L Potassium Level 3.9 mmol/L Chloride Level 104 mmol/L Carbon Dioxide Level 27 mmol/L Anion Gap 8.0 mmol/L Blood Urea Nitrogen 20 mg/dl Creatinine 4.10 mg/dl Est Creatinine Clear Calc Drug Dose 25.9 ml/min Estimated GFR () 22.7 Estimated GFR (Non- 19.6 BUN/Creatinine Ratio 5.0 Random Glucose 98 mg/dl Calcium Level 7.7 mg/dl Free Thyroxine 0.97 ng/dl Troponin I 0.015 ng/ml Bedside Glucose 93 mg/dl 100 mg/dl Test 08/15/16 02:05 08/15/16 04:00 08/15/16 06:38 08/15/16 10:20 White Blood Count 6.71 K/uL Red Blood Count 3.17 M/uL Hemoglobin 9.9 g/dL Hematocrit 31.2 % Mean Corpuscular Volume 98.4 fL Mean Corpuscular Hemoglobin 31.2 pg Mean Corpuscular Hemoglobin Concent 31.7 g/dl Platelet Count 121 K/uL Mean Platelet Volume 10.2 fL Neutrophils (%) (Auto) 74.0 % Lymphocytes (%) (Auto) 11.3 % Monocytes (%) (Auto) 9.1 % Eosinophils (%) (Auto) 5.2 % Basophils (%) (Auto) 0.3 % Neutrophils # (Auto) 4.96 K/uL Lymphocytes # (Auto) 0.76 K/uL Monocytes # (Auto) 0.61 K/uL Eosinophils # (Auto) 0.35 K/uL Basophils # (Auto) 0.02 K/uL RDW Standard Deviation 76.2 fL RDW Coefficient of Variation 20.8 % Immature Granulocyte % (Auto) 0.1 % Immature Granulocyte # (Auto) 0.01 K/uL Anisocytosis PRESENT Prothrombin Time 13.4 SECONDS Prothromb Time International Ratio 1.2 Sodium Level 139 mmol/L Potassium Level 5.0 mmol/L Chloride Level 103 mmol/L Carbon Dioxide Level 27 mmol/L Anion Gap 9.0 mmol/L Blood Urea Nitrogen 27 mg/dl Creatinine 5.50 mg/dl Est Creatinine Clear Calc Drug Dose 19.3 ml/min Estimated GFR () 15.9 Estimated GFR (Non- 13.7 BUN/Creatinine Ratio 4.9 Random Glucose 118 mg/dl Estimated Average Glucose 114 mg/dl Hemoglobin A1c 5.6 % Calcium Level 7.9 mg/dl Phosphorus Level 6.4 mg/dl Magnesium Level 2.0 mg/dl Total Bilirubin 1.2 mg/dl Direct Bilirubin 0.5 mg/dl Aspartate Amino Transf (AST/SGOT) 100 U/L Alanine Aminotransferase (ALT/SGPT) 174 U/L Alkaline Phosphatase 172 U/L Troponin I < 0.015 ng/ml Total Protein 6.7 gm/dl Albumin 2.9 gm/dl Globulin 3.8 gm/dl Albumin/Globulin Ratio 0.8 Bedside Glucose 105 mg/dl 102 mg/dl Urine Color YELLOW Urine Appearance CLEAR Urine pH 7.5 Urine Specific [place] 1.019 Urine Protein 1+ Urine Glucose (UA) NEG Urine Ketones NEG Urine Occult Blood 2+ Urine Nitrite NEG Urine Bilirubin NEG Urine Urobilinogen NEG Urine Leukocyte Esterase TRACE Urine WBC (Auto) 10-30 /hpf Urine RBC (Auto) 10-30 /hpf Urine Hyaline Casts (Auto) 5-10 /lpf Urine Epithelial Cells (Auto) 0-5 /lpf Urine Bacteria (Auto) NEG Urine Renal Epithelial Cells /lpf Urine Pathogenic Casts /lpf (Khadijah Zelaya, PAIngaC) Assessment and Plan Mr. Clay is a 21 y/o male with Membranous Glomerulonephritis S/P Failed Transplants, ESRD on HD, Type A Aortic Dissection, CABG x 1 with L Saphenous [place], RUE DVT 2/2 PICC Line (April 2016), LLE Compartment Syndrome S/P Fasciotomy, Steroid-Induced DM, and HTN who presents after a syncopal episode and wide complex rhythm due to Hyperkalemia. He arrived as a Code Blue in the ED. Metabolic Encephalopathy 2/2 Hyperkalemia: RESOLVED Acute Hypoxic Respiratory Failure 2/2 Above and Sinus Arrest: RESOLVED - Intubated on 08/14 and successfully extubated on 08/14 - adequate oxygenation on RA - No compressions necessary - cardiac status improved with correction of hyperkalemia RUE DVT 2/2 PICC Line with Currently RUE Edema: - Received anticoagulation and currently off coverage - H/O LLE Compartment Syndrome S/P Fasciotomy - Neurovascular check and arm measurements - currently good cap refill and easily palpable pulses ESRD on HD (, , Sun): Membranous Glomerulonephritis S/P Failed Transplants - Received emergent dialysis 08/14 - no need for dialysis today - Nephrology following - appreciate assistance with dialysis Hypothyroidism: - TSH at 8 with normal T4 - possible inflammatory changes for TSH? - Synthroid 25 mcg daily Question of HCAP vs Aspiration? - Imaging suggest possible atelectasis - will continue to monitor off ABx - Sputum Cx pending Type A Aortic Dissection S/P Repair and CABG with Saphenous [place] and HTN: - Extended admission at [facility] [place] in [place] requiring ECMO - Coreg 50 mg BID and Hydralazine PRN Steroid-Induced DM: - Currently not on home regimen - SSI with correction factor only Anemia of Chronic Disease: STABLE - Monitor CBC DVT Prophylaxis: Heparin 5000 units SC BID Code Status: FULL RESUSCITATION Disposition: Continue to monitor recovery - suitable for transfer to [facility] Continued [facility] stay due to: multiple IV medications needed Discharge planning: home (Khadijah Zelaya, YORDAN) Attending Attestation & Admission Note: Pt seen/examined, chart reviewed, and care plan d/w MERRY Zelaya. I agree w/ the kennedy components of her documentation. Pt reports mild discomfort and significant swelling in the right arm from the elbow down to the hand. He denies any paresthesias of the right arm. He had NO pain in the right arm prior to his hospital presentation. He incidentally mentions he has a left sided foot drop and was fitted with AFO but doesn't use it as it doesn't fit properly. No cp or dyspnea. VSS no fever gen - flat affect neck - JVD to the jaw heart - RRR, s1, s2 lungs - CTA b/l abd - soft, no obvious HSM, renal transplant RLQ ext - RUE - copious firm edema from the elbow down to the hand involving all fingers radial and ulnar pulses on right 2+ cap refill right hand <2 sec minimal amount of blistering volar aspect of distal right arm no palpable cords no significant tenderness of the arm with palpation AV fistula LUE with +thrill CBC, BMP noted to be normal today except Cr 5.5 LFTs mildly elevated A/P: 1. wide-complex tachycardia (possibly v-tach) 2nd to hyperkalemia - resolved. 2. hyperkalemia - due to noncompliance with HD in setting of ESRD - resolved. 3. hyperglycemia - resolved. 4. acute hypoxic resp failure - resolved, off the vent, stable sats RA. 5. RUE DVT - records indicate he was dx with RUE DVT in 04/2016 at [facility]. We do not have the actual report however. He took coumadin for 2-3 months by history. I am unclear if the DVTs are chronic vs new. If new this would explain his edema of RUE and I would recommend returning to use of coumadin. If these are OLD then would simply observe. 6. edema, right arm - if DVTs are not new then the edema may be from IV infiltration as he had an IV in the right hand (dorsum) and he received copious IV meds through the IV during his code. Perhaps he had extravasation of fluids/ meds during that code. Await actual u/s report of right arm from April 2016 to compare studies. No evidence of compartment syndrome of right arm at this time. 7. left foot drop - Umer Wen consult after d/c. 8. ESRD on HD - for HD tomorrow by report. 9. abnormal LFTs - lfts in April 2016 based on [facility] records were NORMAL. Had outpatient u/s of liver/spleen in May showing enlarged liver/spleen. Etiology? Consider repeat imaging. Consider GI referral. ok to transfer from ICU to tele status today Familia Mancilla MD (Familia Mancilla MD)
--- NOTE | 2016-08-15 15:05 | Nephrology Progress Note ---
Nephrology Progress Note Date of Service Aug 15, 2016. Chief Complaint Provide inpatient HD and assist w/ patient's medical management Subjective Mr. Clay was seen & examined in the ICU this morning. He has been extubated and was breathing comfortably on O2 at 2 L / min NC. Mr. Clay complained of weakness. Review of Systems Constitutional: No fever Cardiovascular: No chest pain Respiratory: No dyspnea at rest Abdomen: No pain, No nausea, No vomiting Extremities: No leg edema A complete review of systems was performed. Pertinent positives are noted above. All other systems are negative. Vital Signs Last 8 Hrs Date Time Temp Pulse Resp B/P (MAP) Pulse Ox O2 Delivery O2 Flow Rate FiO2 08/15/16 12:21 36.9 08/15/16 12:00 Room Air 08/15/16 12:00 96 27 152/98 94 08/15/16 11:05 97 19 173/99 95 08/15/16 11:01 94 18 173/99 96 08/15/16 10:01 100 22 156/98 97 08/15/16 09:01 96 17 166/108 95 08/15/16 08:08 36.9 08/15/16 08:01 84 16 154/89 97 08/15/16 08:00 Nasal Cannula 2.0 08/15/16 07:01 86 15 162/89 97 Last Recorded Weight Weight (Kilograms): 64.100 Physical Exam General Appearance: no apparent distress Head: normocephalic, atraumatic Eyes: PERRL Neck: no adenopathy Respiratory/Chest: lungs clear, no respiratory distress Cardiovascular: regular rate, rhythm Abdomen/GI: normal bowel sounds, non tender, soft Extremities/Musculoskelatal: no pedal edema, + pertinent finding (left arm AVF + bruit) Neurologic/Psych: alert, oriented x 3 Family History Cancer Hypertension Negative for CKD/ESRD Social History Smoking Status: Never smoker Smokeless Tobacco Use: No Alcohol Use: none Drug Use: none Marital Status: single 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 Lives with mother Laboratory Results Past 24 Hours 08/15/16 02:05 Red Blood Count 3.17, Mean Corpuscular Volume 98.4, Mean Corpuscular Hemoglobin 31.2, Mean Corpuscular Hemoglobin Concent 31.7, Mean Platelet Volume 10.2, Neutrophils (%) (Auto) 74.0, Lymphocytes (%) (Auto) 11.3, Monocytes (%) (Auto) 9.1, Eosinophils (%) (Auto) 5.2, Basophils (%) (Auto) 0.3, Neutrophils # (Auto) 4.96, Lymphocytes # (Auto) 0.76, Monocytes # (Auto) 0.61, Eosinophils # (Auto) 0.35, Basophils # (Auto) 0.02 08/14/16 16:12 08/15/16 02:05 Test 08/14/16 16:12 08/14/16 18:44 08/14/16 20:19 08/15/16 00:03 Anion Gap 8.0 mmol/L (3-11) Est Creatinine Clear Calc Drug Dose 25.9 ml/min Estimated GFR () 22.7 Estimated GFR (Non- 19.6 BUN/Creatinine Ratio 5.0 (10-20) Calcium Level 7.7 mg/dl (8.5-10.1) Free Thyroxine 0.97 ng/dl (0.80-1.60) Troponin I 0.015 ng/ml (0-0.045) Bedside Glucose 93 mg/dl (70-99) 100 mg/dl (70-99) Test 08/15/16 02:05 08/15/16 04:00 08/15/16 06:38 08/15/16 10:20 White Blood Count 6.71 K/uL (4.8-10.8) Red Blood Count 3.17 M/uL (4.7-6.1) Hemoglobin 9.9 g/dL (14.0-18.0) Hematocrit 31.2 % (42-52) Mean Corpuscular Volume 98.4 fL (80-100) Mean Corpuscular Hemoglobin 31.2 pg (25-34) Mean Corpuscular Hemoglobin Concent 31.7 g/dl (32-36) Platelet Count 121 K/uL (130-400) Mean Platelet Volume 10.2 fL (7.4-10.4) Neutrophils (%) (Auto) 74.0 % Lymphocytes (%) (Auto) 11.3 % Monocytes (%) (Auto) 9.1 % Eosinophils (%) (Auto) 5.2 % Basophils (%) (Auto) 0.3 % Neutrophils # (Auto) 4.96 K/uL (1.4-6.5) Lymphocytes # (Auto) 0.76 K/uL (1.2-3.4) Monocytes # (Auto) 0.61 K/uL (0.11-0.59) Eosinophils # (Auto) 0.35 K/uL (0-0.5) Basophils # (Auto) 0.02 K/uL (0-0.2) RDW Standard Deviation 76.2 fL (36.4-46.3) RDW Coefficient of Variation 20.8 % (11.5-14.5) Immature Granulocyte % (Auto) 0.1 % Immature Granulocyte # (Auto) 0.01 K/uL (0.00-0.02) Anisocytosis PRESENT Prothrombin Time 13.4 SECONDS (9.0-12.0) Prothromb Time International Ratio 1.2 (0.9-1.1) Anion Gap 9.0 mmol/L (3-11) Est Creatinine Clear Calc Drug Dose 19.3 ml/min Estimated GFR () 15.9 Estimated GFR (Non- 13.7 BUN/Creatinine Ratio 4.9 (10-20) Estimated Average Glucose 114 mg/dl Hemoglobin A1c 5.6 % (4.5-5.6) Calcium Level 7.9 mg/dl (8.5-10.1) Phosphorus Level 6.4 mg/dl (2.5-4.9) Magnesium Level 2.0 mg/dl (1.8-2.4) Total Bilirubin 1.2 mg/dl (0.2-1) Direct Bilirubin 0.5 mg/dl (0-0.2) Aspartate Amino Transf (AST/SGOT) 100 U/L (15-37) Alanine Aminotransferase (ALT/SGPT) 174 U/L (12-78) Alkaline Phosphatase 172 U/L (45-117) Troponin I < 0.015 ng/ml (0-0.045) Total Protein 6.7 gm/dl (6.4-8.2) Albumin 2.9 gm/dl (3.4-5.0) Globulin 3.8 gm/dl (2.5-4.0) Albumin/Globulin Ratio 0.8 (0.9-2) Bedside Glucose 105 mg/dl (70-99) 102 mg/dl (70-99) Urine Color YELLOW Urine Appearance CLEAR (CLEAR) Urine pH 7.5 (4.5-7.5) Urine Specific [place] 1.019 (1.000-1.030) Urine Protein 1+ (NEG) Urine Glucose (UA) NEG (NEG) Urine Ketones NEG (NEG) Urine Occult Blood 2+ (NEG) Urine Nitrite NEG (NEG) Urine Bilirubin NEG (NEG) Urine Urobilinogen NEG (NEG) Urine Leukocyte Esterase TRACE (NEG) Urine WBC (Auto) 10-30 /hpf (0-5) Urine RBC (Auto) 10-30 /hpf (0-4) Urine Hyaline Casts (Auto) 5-10 /lpf (0-5) Urine Epithelial Cells (Auto) 0-5 /lpf (0-5) Urine Bacteria (Auto) NEG (NEG) Urine Renal Epithelial Cells /lpf (0-5) Urine Pathogenic Casts /lpf (0) Allergies Coded Allergies: Penicillins (Unverified Allergy, Severe, FACE SWELLS, 08/14/16) Amoxicillin (Verified Allergy, Unknown, ?, 05/15/16) Medications Current Inpatient Medications Medications (Trade) Dose Ordered Sig/Moises Route Start Time Stop Time Status Last Admin Dose Admin Ioversol (Optiray 320) 100 ml UD PRN IV 08/14/16 09:45 08/18/16 09:44 Heparin Sodium (Porcine) (Heparin Sq 5000 Unit/0.5ml) 5,000 unit Q12H SQ 08/14/16 21:00 09/13/16 20:59 08/15/16 10:12 5,000 UNIT Lorazepam (Ativan Inj) 0.5 mg Q4H PRN IV 08/14/16 10:15 09/13/16 10:14 Carvedilol (Coreg Tab) 50 mg BID PO 08/14/16 21:00 09/13/16 20:59 Future hold 08/15/16 10:11 50 MG Hydralazine HCl (HydrALAZINE INJ) 15 mg Q6H PRN IV. 08/14/16 10:30 09/13/16 10:29 Glucose (Glucose 40% Gel) 15-30 GRAMS 15 GRAMS... UD PRN PO 08/14/16 11:30 09/13/16 11:29 Dextrose (Dextrose 50% 50ML Syringe) 25-50ML OF 50% DW IV FOR... UD PRN IV 08/14/16 11:30 09/13/16 11:29 Glucagon (Glucagon Inj) 1 mg UD PRN SQ 08/14/16 11:30 09/13/16 11:29 Miscellaneous Information (Consult Glycemic Management Pharmacy) 1 ea UD PRN N/A 08/14/16 11:47 09/13/16 11:46 Levothyroxine Sodium (Synthroid Tab) 25 mcg DAILYBB PO 08/15/16 06:00 09/14/16 05:59 08/15/16 10:11 25 MCG Gabapentin (Neurontin Cap) 100 mg BID PO 08/15/16 10:00 09/14/16 09:59 08/15/16 10:06 100 MG Nortriptyline HCl (Pamelor Cap) 50 mg DAILY PRN PO 08/15/16 09:45 09/14/16 09:44 Sertraline HCl (Zoloft Tab) 50 mg DAILY PO 08/15/16 10:00 09/14/16 09:59 08/15/16 10:11 50 MG Lactobacillus Acidophilus (Lactinex Granules Pack) 1 gm TIDM PO 08/15/16 11:30 09/14/16 11:29 08/15/16 10:06 1 GM Insulin Aspart (novoLOG ASPART) SLIDING SCALE ACHS SC 08/15/16 11:00 09/14/16 10:59 Pantoprazole Sodium (Protonix Tab) 40 mg QAM PO 08/15/16 10:00 09/14/16 09:59 08/15/16 10:11 40 MG Oxycodone HCl (Roxicodone Immediate Rel Tab) 5 mg Q6H PRN PO 08/15/16 12:30 08/29/16 12:29 Impression (1) Cardiopulmonary arrest with successful resuscitation (2) Hyperkalemia (3) ESRD on hemodialysis (4) Hypertension Mr. Clay was admitted to the hospital following a syncopal event at home. He had missed his Sunday dialysis treatment and presented with a wide complex rhythm due to hyperkalemia. Serum potassium was 9.4. He received emergency dialysis and his cardiac rhythm stabilized. PMH - Membranous GN, failed DDRT, ESRD on HD TTS ([facility] [place] - Dr. Palma), Type A Aortic Dissection, CABG x 1 with L Saphenous [place], RUE DVT due to PICC Line (April 2016), LLE compartment syndrome s/p fasciotomy, steroid-Induced DM and HTN. Recommendations ESRD: -- Telemetry this am shows NSR. Patient has been extubated and is breathing comfortably on O2 at 2 L / min NC. Volume status and electrolyte balance are acceptable. No acute indication for HD today. Will schedule next HD for tomorrow am using limited heparin and attempt 2 L UF. ANEMIA: -- Will provide Epogen w/ HD tomorrow
--- NOTE | 2016-08-15 15:43 | Critical Care Progress Note ---
Critical Care Progress Note Date of Service Aug 15, 2016. ICU Day ICU Day Number: [address] Suazo Subjective Uneventful night, the patient denies any N&V/ chest pain or SOB. He does have right upper extremity pain which is slightly improved from the day before. He notes he has been trying to keep the arm propped up. ROS negative aside from above Objective General: ambulatory, not in acute distress, wearing glasses Skin: no rashes noted, no suspicious lesions, no areas of inflammations/ lacerations/ erythema noted, scares on chest, tattoo right UE forearm CVS: S1/ S2 noted, RRR, 3/6 murmur, no cyanosis RVS: not in acute respiratory distress, no wheezing/ rales/ crackles noted, decreased to bilat bases Neck: inspection WNL, full ROM of neck ABD: BSx4, no pain/ tenderness on palpation, no distention or guarding MSK: motor and sensation intact in all limbs, right UE is swollen from the right hand to the shoulder, no erythema noted NVS: PERRL, EOMI, sensation intact in all extremities Current SOFA Score SOFA Score Response (Comments) Value Platelets (x10) < 150 1 Bilirubin (mg/dL) < 1.2 0 Mickey Coma Score 15 0 Level of Hypotension No Hypotension 0 Creatinine (mg/dL) > 5.0 4 Total 5 Assessment & Plan 1. Metabolic encephalopathy; multifactorial including elevated potassium, much improved since receiving dialysis 2. Acute hypoxic resp failure secondary to metabolic encephalopathy , GCS < 8 - improving and extubated 3. 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 H/O Aortic dissection s/p repair 5. right UE DVT subacute 6. Hypothyroidism 7. 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 Anemia of chronic disease, history of multiple transfusions NVS - oriented x 3 - assess for delirium - continue his sertraline CVS - as able to tolerate orals will restart his carvedilol - continue to monitor RVS - extubated - O2 per nursing protocol GI - Tolerating a renal diet - pantoprazole 40 mg daily - monitor I&O - Nephrology has been consulted, dialysis due tomorrow - recheck PRP daily ID -Will hold abx for now and reassess clinical need daily HEME - follow hgb ENDO - Did not tolerate the insulin infusion, novolog is on board, HBA1C was WNL - Synthroid restarted and consider an adjustment in dose as TSH is >8 DVT Prophylaxis - heparin bid - discussed the risks and benefits of restarting the coumadin, he was originally taken off the coumadin by his [place] physicians because of hypertherapeutic levels and difficult getting levels because of poor access per the family and patient. After discussing restarting the coumadin it was decided by both family and patient that this would not be restarted at this time. Resident Physician Supervision Note: Dr. Baird was resident physician during care of patient. I separately evaluated patient and did history and exam. I discussed the case with the resident and generally agree with the findings and plan. Patient stable for downgraded out of unit today Documented By: Cabrera Suazo DO Consults & Procedures Consultants: Dr King- Nephro Procedures: Intubation 08/14/2016 Data Medications: Current Inpatient Medications Medications (Trade) Dose Ordered Sig/Moises Route Start Time Stop Time Status Last Admin Dose Admin Ioversol (Optiray 320) 100 ml UD PRN IV 08/14/16 09:45 08/18/16 09:44 Heparin Sodium (Porcine) (Heparin Sq 5000 Unit/0.5ml) 5,000 unit Q12H SQ 08/14/16 21:00 09/13/16 20:59 08/15/16 10:12 5,000 UNIT Lorazepam (Ativan Inj) 0.5 mg Q4H PRN IV 08/14/16 10:15 09/13/16 10:14 Carvedilol (Coreg Tab) 50 mg BID PO 08/14/16 21:00 09/13/16 20:59 Future hold 08/15/16 10:11 50 MG Hydralazine HCl (HydrALAZINE INJ) 15 mg Q6H PRN IV. 08/14/16 10:30 09/13/16 10:29 Glucose (Glucose 40% Gel) 15-30 GRAMS 15 GRAMS... UD PRN PO 08/14/16 11:30 09/13/16 11:29 Dextrose (Dextrose 50% 50ML Syringe) 25-50ML OF 50% DW IV FOR... UD PRN IV 08/14/16 11:30 09/13/16 11:29 Glucagon (Glucagon Inj) 1 mg UD PRN SQ 08/14/16 11:30 09/13/16 11:29 Miscellaneous Information (Consult Glycemic Management Pharmacy) 1 ea UD PRN N/A 08/14/16 11:47 09/13/16 11:46 Levothyroxine Sodium (Synthroid Tab) 25 mcg DAILYBB PO 08/15/16 06:00 09/14/16 05:59 08/15/16 10:11 25 MCG Gabapentin (Neurontin Cap) 100 mg BID PO 08/15/16 10:00 09/14/16 09:59 08/15/16 10:06 100 MG Nortriptyline HCl (Pamelor Cap) 50 mg DAILY PRN PO 08/15/16 09:45 09/14/16 09:44 Sertraline HCl (Zoloft Tab) 50 mg DAILY PO 08/15/16 10:00 09/14/16 09:59 08/15/16 10:11 50 MG Lactobacillus Acidophilus (Lactinex Granules Pack) 1 gm TIDM PO 08/15/16 11:30 09/14/16 11:29 08/15/16 10:06 1 GM Insulin Aspart (novoLOG ASPART) SLIDING SCALE ACHS SC 08/15/16 11:00 09/14/16 10:59 Pantoprazole Sodium (Protonix Tab) 40 mg QAM PO 08/15/16 10:00 09/14/16 09:59 08/15/16 10:11 40 MG Oxycodone HCl (Roxicodone Immediate Rel Tab) 5 mg Q6H PRN PO 08/15/16 12:30 08/29/16 12:29 Heparin Sodium (Porcine) (Heparin Iv Bolus) 2,000 unit 0600 IV 08/16/16 06:00 08/16/16 18:00 Heparin Sodium (Porcine) (Heparin Iv Bolus) 500 unit Q1H IV 08/16/16 06:00 08/16/16 08:01 Miscellaneous Information (Order Awaiting Action) 1 ea QS N/A 08/15/16 16:00 09/14/16 15:59 Epoetin Chito 7000 units/Syringe 0.35 ml @ 1 mls/min TODAY@0600 IV. 08/16/16 06:00 08/16/16 18:00 I & O: 24-Hour Column 08/16/16 08:00 Intake Total 475 ml Output Total 50 ml Balance 425 ml Vital Signs: Date Time Temp Pulse Resp B/P (MAP) Pulse Ox O2 Delivery O2 Flow Rate FiO2 08/15/16 12:21 36.9 08/15/16 12:00 Room Air 08/15/16 12:00 96 27 152/98 94 08/15/16 11:05 97 19 173/99 95 08/15/16 11:01 94 18 173/99 96 08/15/16 10:01 100 22 156/98 97 08/15/16 09:01 96 17 166/108 95 08/15/16 08:08 36.9 08/15/16 08:01 84 16 154/89 97 08/15/16 08:00 Nasal Cannula 2.0 08/15/16 07:01 86 15 162/89 97 08/15/16 06:00 89 18 149/87 (107) 98 Nasal Cannula 2.0 08/15/16 04:00 Nasal Cannula 2.0 08/15/16 04:00 36.8 89 18 148/89 (108) 97 Nasal Cannula 2.0 08/15/16 02:00 97 20 157/95 (115) 97 Nasal Cannula 2.0 08/15/16 00:00 36.6 95 16 161/94 (116) 92 Room Air 08/15/16 00:00 Nasal Cannula 2.0 08/14/16 23:00 105 167/93 (117) 93 Room Air 08/14/16 22:32 99 25 153/89 (110) 94 Room Air 08/14/16 22:00 93 21 152/84 (106) 93 Room Air 08/14/16 21:25 98 19 156/85 (108) 93 Room Air 08/14/16 21:00 88 20 136/80 (98) 96 Nasal Cannula 2.0 08/14/16 20:00 36.7 88 22 147/85 (105) 97 Nasal Cannula 2.0 08/14/16 20:00 Nasal Cannula 2.0 08/14/16 19:00 89 19 152/91 (111) 99 08/14/16 18:00 35 08/14/16 18:00 81 16 99 150/90 08/14/16 17:00 77 14 99 102/66 08/14/16 16:45 80 12 97 104/67 08/14/16 16:30 84 10 97 110/71 08/14/16 16:15 83 12 100 110/70 08/14/16 16:01 84 12 99/52 113/70 08/14/16 16:00 Mechanical Ventilator 60 08/14/16 16:00 60 08/14/16 16:00 36.5 08/14/16 15:45 86 12 100 114/70 08/14/16 15:31 88 11 105/55 100 125/79 Laboratory Results: Last 24 Hours Test 08/14/16 16:12 08/14/16 18:44 08/14/16 20:19 08/15/16 00:00 Sodium Level 139 mmol/L Potassium Level 3.9 mmol/L Chloride Level 104 mmol/L Carbon Dioxide Level 27 mmol/L Anion Gap 8.0 mmol/L Blood Urea Nitrogen 20 mg/dl Creatinine 4.10 mg/dl Est Creatinine Clear Calc Drug Dose 25.9 ml/min Estimated GFR () 22.7 Estimated GFR (Non- 19.6 BUN/Creatinine Ratio 5.0 Random Glucose 98 mg/dl Calcium Level 7.7 mg/dl Free Thyroxine 0.97 ng/dl Troponin I 0.015 ng/ml Bedside Glucose 93 mg/dl Test 08/15/16 00:03 08/15/16 02:05 08/15/16 04:00 08/15/16 06:38 Bedside Glucose 100 mg/dl 105 mg/dl 102 mg/dl White Blood Count 6.71 K/uL Red Blood Count 3.17 M/uL Hemoglobin 9.9 g/dL Hematocrit 31.2 % Mean Corpuscular Volume 98.4 fL Mean Corpuscular Hemoglobin 31.2 pg Mean Corpuscular Hemoglobin Concent 31.7 g/dl Platelet Count 121 K/uL Mean Platelet Volume 10.2 fL Neutrophils (%) (Auto) 74.0 % Lymphocytes (%) (Auto) 11.3 % Monocytes (%) (Auto) 9.1 % Eosinophils (%) (Auto) 5.2 % Basophils (%) (Auto) 0.3 % Neutrophils # (Auto) 4.96 K/uL Lymphocytes # (Auto) 0.76 K/uL Monocytes # (Auto) 0.61 K/uL Eosinophils # (Auto) 0.35 K/uL Basophils # (Auto) 0.02 K/uL RDW Standard Deviation 76.2 fL RDW Coefficient of Variation 20.8 % Immature Granulocyte % (Auto) 0.1 % Immature Granulocyte # (Auto) 0.01 K/uL Anisocytosis PRESENT Prothrombin Time 13.4 SECONDS Prothromb Time International Ratio 1.2 Sodium Level 139 mmol/L Potassium Level 5.0 mmol/L Chloride Level 103 mmol/L Carbon Dioxide Level 27 mmol/L Anion Gap 9.0 mmol/L Blood Urea Nitrogen 27 mg/dl Creatinine 5.50 mg/dl Est Creatinine Clear Calc Drug Dose 19.3 ml/min Estimated GFR () 15.9 Estimated GFR (Non- 13.7 BUN/Creatinine Ratio 4.9 Random Glucose 118 mg/dl Estimated Average Glucose 114 mg/dl Hemoglobin A1c 5.6 % Calcium Level 7.9 mg/dl Phosphorus Level 6.4 mg/dl Magnesium Level 2.0 mg/dl Total Bilirubin 1.2 mg/dl Direct Bilirubin 0.5 mg/dl Aspartate Amino Transf (AST/SGOT) 100 U/L Alanine Aminotransferase (ALT/SGPT) 174 U/L Alkaline Phosphatase 172 U/L Troponin I < 0.015 ng/ml Total Protein 6.7 gm/dl Albumin 2.9 gm/dl Globulin 3.8 gm/dl Albumin/Globulin Ratio 0.8 Test 08/15/16 10:20 Urine Color YELLOW Urine Appearance CLEAR Urine pH 7.5 Urine Specific [place] 1.019 Urine Protein 1+ Urine Glucose (UA) NEG Urine Ketones NEG Urine Occult Blood 2+ Urine Nitrite NEG Urine Bilirubin NEG Urine Urobilinogen NEG Urine Leukocyte Esterase TRACE Urine WBC (Auto) 10-30 /hpf Urine RBC (Auto) 10-30 /hpf Urine Hyaline Casts (Auto) 5-10 /lpf Urine Epithelial Cells (Auto) 0-5 /lpf Urine Bacteria (Auto) NEG Urine Renal Epithelial Cells /lpf Urine Pathogenic Casts /lpf
--- NOTE | 2016-08-15 17:16 | Procedure Note ---
Procedure Note Procedure Date Aug 15, 2016. Procedure Description Procedure Name: Right femoral arterial line Procedure time out: side/site verified, correct procedure Consent obtained: emergent consent implied Performed by: attending Indications: diagnostic Contraindications: none Description: Indication hemodynamic instability Contraindications none Prep: Chlorhexidine prep, sterile drape, sterile procedures used Anesthesia: Local injection with 1% lidocaine without epi, volume to ML's A 12 cm single-lumen arterial line was placed via Seldinger technique with dynamic ultrasound guidance in the right femoral artery. There was pulsatile blood return in line was sutured in placed, or no complications and the patient tolerated the procedure well. Complications: none Patient tolerated procedure: well Post-procedure vital signs: reviewed and stable Central Line Procedure time out: side/site verified, sterile procedure used Consent obtained: emergent consent implied Performed by: attending Indications: poor venous access, central drug admin. Prep: chlorhexadine prep, sterile drape, sterile procedures used Anesthesia: local injection, lidocaine 1% without epi Volume anesthetic (ml's): 2 Central line lumen: triple Central line location: femoral (R) Additional details: ultrasound guidance, Selinger technique used, line sutured , good blood return Complications: none Patient tolerated procedure: well Post-procedure vital signs: reviewed and stable
[2016-08-16] VITALS (27 sets, daily range): BP systolic 146–198; BP diastolic 87–114; PULSE 83–96; TEMP 36.4–36.9; O2SAT 93–99
[2016-08-16] MEDS: OXYCODONE HCL IR 5 MG TAB (IMMEDIATE RELEASE) PO PRN ×3 (02:49→18:42)
[2016-08-16 05:58] LABS: BASO % 0.4 %; BASO ABS # 0.02 K/uL (0-0.2); EOS % 6.9 %; HEMATOCRIT 30.3 % (42-52); IG% 0.2 %; LYMPH % 17.9 %; LYMPH ABS # 0.93 K/uL (1.2-3.4); MEAN CELL VOLUME 97.7 fL (80-100); MEAN CORPUSCULAR HEMOGLOBIN 31.3 pg (25-34); MEAN PLATELET VOLUME 9.9 fL (7.4-10.4); MONO % 8.5 %; NEUT % 66.1 %; PLATELET COUNT 111 K/uL (130-400); WHITE BLOOD COUNT 5.19 K/uL (4.8-10.8)
[2016-08-16] MEDS ORDERED: EPOETIN ALFA INJ 7,000 UNITS in SYRINGE 0 ML IV. SCH (06:00)
[2016-08-16] MEDS ORDERED: HEPARIN SOD (PORCINE) 1000 UNIT/ML 10 ML VIAL IV SCH (06:00)
[2016-08-16] MEDS ORDERED: EPOETIN ALFA 10,000 UNITS/ML VIAL IV. ONE (06:00)
[2016-08-16] MEDS: LEVOTHYROXINE 25 MCG TAB PO SCH (06:20)
[2016-08-16 06:35] LABS: ANISOCYTOSIS PRESENT; COMPLETE YES
[2016-08-16 06:42] LABS: BUN/CREATININE RATIO 5.7 (10-20); CALCIUM 8.5 mg/dl (8.5-10.1); MAGNESIUM 2.4 mg/dl (1.8-2.4); PHOSPHORUS 8.9 mg/dl (2.5-4.9)
[2016-08-16] MEDS: PANTOprazole SOD 40 MG TAB PO SCH ×2 (08:16→13:28)
[2016-08-16] MEDS: CARVEDILOL 25 MG TAB PO SCH ×3 (08:16→21:29)
[2016-08-16] MEDS: GABAPENTIN 100 MG CAP PO SCH ×3 (08:16→21:29)
[2016-08-16] MEDS: LACTOBACILLUS ACIDOPHILUS 1 GM PACK PO SCH ×3 (08:16→17:08)
[2016-08-16] MEDS: SERTRALINE HCL 50 MG TAB PO SCH ×2 (08:17→13:28)
[2016-08-16] MEDS: HEPARIN SOD 5000 UNIT/0.5 ML CARP SQ SCH ×2 (08:18→21:33)
[2016-08-16] MEDS: SEVELAMER HYDROCH 800 MG TAB PO SCH ×3 (08:44→17:05)
[2016-08-16] MEDS ORDERED: DiphenhydrAMINE INJ 25 MG in SYRINGE 0 ML IV STA (08:56)
[2016-08-16] MEDS ORDERED: DiphenhydrAMINE HCL 50 MG/ML VIAL ONE (09:12)
[2016-08-16] MEDS: HEPARIN SOD (PORCINE) 1000 UNIT/ML 10 ML VIAL IV SCH ×3 (10:00→11:57)
--- NOTE | 2016-08-16 10:42 | Dialysis Progress Note ---
Hemodialysis Note Date of Service Aug 16, 2016. Chief Complaint ESRD Subjective No acute events overnight. No complaints this morning. Leonard was seen and evaluated during hemodialysis. He is tolerating the treatment well. He denies shortness of breath. He denies chest pain or palpitations. Right arm swollen. Review of Systems A complete review of systems was performed. Pertinent positives are noted above. All other systems are negative. Vital Signs Last 8 Hrs Date Time Temp Pulse Resp B/P (MAP) Pulse Ox O2 Delivery O2 Flow Rate FiO2 08/16/16 10:15 85 151/90 08/16/16 10:00 87 158/97 08/16/16 09:45 83 157/97 08/16/16 09:30 84 149/101 08/16/16 09:15 87 159/98 08/16/16 09:02 87 165/108 08/16/16 08:52 36.4 87 165/108 (127) 08/16/16 08:23 36.9 83 17 149/90 (109) 94 Room Air 08/16/16 08:00 Room Air 08/16/16 04:00 Room Air 08/16/16 03:28 36.9 89 18 158/95 (116) 93 Room Air Last Recorded Weight Weight (Kilograms): 63.700 Physical Exam General Appearance: WD/WN, no apparent distress Head: normocephalic, atraumatic Eyes: normal inspection, sclerae normal ENT: normal ENT inspection, pharynx normal Neck: supple, no JVD Respiratory/Chest: lungs clear, no respiratory distress, no accessory muscle use Cardiovascular: regular rate, rhythm, + systolic murmur Abdomen/GI: non tender, soft Extremities/Musculoskelatal: + swelling (RUE), + pertinent finding (LUE AVF with good Qb) Neurologic/Psych: alert, normal mood/affect Family History Negative for CKD/ESRD Social History Smoking Status: Never smoker Smokeless Tobacco Use: No Alcohol Use: none Drug Use: none Marital Status: single 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 Lives with mother Laboratory Results Past 24 Hours 08/16/16 05:39 Red Blood Count 3.10, Mean Corpuscular Volume 97.7, Mean Corpuscular Hemoglobin 31.3, Mean Corpuscular Hemoglobin Concent 32.0, Mean Platelet Volume 9.9, Neutrophils (%) (Auto) 66.1, Lymphocytes (%) (Auto) 17.9, Monocytes (%) (Auto) 8.5, Eosinophils (%) (Auto) 6.9, Basophils (%) (Auto) 0.4, Neutrophils # (Auto) 3.43, Lymphocytes # (Auto) 0.93, Monocytes # (Auto) 0.44, Eosinophils # (Auto) 0.36, Basophils # (Auto) 0.02 08/16/16 05:39 Test 08/15/16 11:26 08/16/16 05:39 Bedside Glucose 113 mg/dl (70-99) White Blood Count 5.19 K/uL (4.8-10.8) Red Blood Count 3.10 M/uL (4.7-6.1) Hemoglobin 9.7 g/dL (14.0-18.0) Hematocrit 30.3 % (42-52) Mean Corpuscular Volume 97.7 fL (80-100) Mean Corpuscular Hemoglobin 31.3 pg (25-34) Mean Corpuscular Hemoglobin Concent 32.0 g/dl (32-36) Platelet Count 111 K/uL (130-400) Mean Platelet Volume 9.9 fL (7.4-10.4) Neutrophils (%) (Auto) 66.1 % Lymphocytes (%) (Auto) 17.9 % Monocytes (%) (Auto) 8.5 % Eosinophils (%) (Auto) 6.9 % Basophils (%) (Auto) 0.4 % Neutrophils # (Auto) 3.43 K/uL (1.4-6.5) Lymphocytes # (Auto) 0.93 K/uL (1.2-3.4) Monocytes # (Auto) 0.44 K/uL (0.11-0.59) Eosinophils # (Auto) 0.36 K/uL (0-0.5) Basophils # (Auto) 0.02 K/uL (0-0.2) RDW Standard Deviation 72.9 fL (36.4-46.3) RDW Coefficient of Variation 20.6 % (11.5-14.5) Immature Granulocyte % (Auto) 0.2 % Immature Granulocyte # (Auto) 0.01 K/uL (0.00-0.02) Anisocytosis PRESENT Anion Gap 11.0 mmol/L (3-11) Est Creatinine Clear Calc Drug Dose 13.3 ml/min Estimated GFR () 10.1 Estimated GFR (Non- 8.7 BUN/Creatinine Ratio 5.7 (10-20) Calcium Level 8.5 mg/dl (8.5-10.1) Phosphorus Level 8.9 mg/dl (2.5-4.9) Magnesium Level 2.4 mg/dl (1.8-2.4) Total Bilirubin 0.8 mg/dl (0.2-1) Direct Bilirubin 0.4 mg/dl (0-0.2) Aspartate Amino Transf (AST/SGOT) 25 U/L (15-37) Alanine Aminotransferase (ALT/SGPT) 114 U/L (12-78) Alkaline Phosphatase 173 U/L (45-117) Total Protein 6.6 gm/dl (6.4-8.2) Albumin 2.8 gm/dl (3.4-5.0) Allergies Coded Allergies: Penicillins (Unverified Allergy, Severe, FACE SWELLS, 08/14/16) Amoxicillin (Verified Allergy, Unknown, ?, 05/15/16) Medications Current Inpatient Medications Medications (Trade) Dose Ordered Sig/Moises Route Start Time Stop Time Status Last Admin Dose Admin Ioversol (Optiray 320) 100 ml UD PRN IV 08/14/16 09:45 08/18/16 09:44 Heparin Sodium (Porcine) (Heparin Sq 5000 Unit/0.5ml) 5,000 unit Q12H SQ 08/14/16 21:00 09/13/16 20:59 08/16/16 08:18 5,000 UNIT Lorazepam (Ativan Inj) 0.5 mg Q4H PRN IV 08/14/16 10:15 09/13/16 10:14 Carvedilol (Coreg Tab) 50 mg BID PO 08/14/16 21:00 09/13/16 20:59 Future hold 08/16/16 08:16 50 MG Hydralazine HCl (HydrALAZINE INJ) 15 mg Q6H PRN IV. 08/14/16 10:30 09/13/16 10:29 Glucose (Glucose 40% Gel) 15-30 GRAMS 15 GRAMS... UD PRN PO 08/14/16 11:30 09/13/16 11:29 Dextrose (Dextrose 50% 50ML Syringe) 25-50ML OF 50% DW IV FOR... UD PRN IV 08/14/16 11:30 09/13/16 11:29 Glucagon (Glucagon Inj) 1 mg UD PRN SQ 08/14/16 11:30 09/13/16 11:29 Levothyroxine Sodium (Synthroid Tab) 25 mcg DAILYBB PO 08/15/16 06:00 09/14/16 05:59 08/16/16 06:20 25 MCG Gabapentin (Neurontin Cap) 100 mg BID PO 08/15/16 10:00 09/14/16 09:59 08/16/16 08:16 100 MG Nortriptyline HCl (Pamelor Cap) 50 mg DAILY PRN PO 08/15/16 09:45 09/14/16 09:44 Sertraline HCl (Zoloft Tab) 50 mg DAILY PO 08/15/16 10:00 09/14/16 09:59 08/16/16 08:17 50 MG Lactobacillus Acidophilus (Lactinex Granules Pack) 1 gm TIDM PO 08/15/16 11:30 09/14/16 11:29 08/16/16 08:16 1 GM Pantoprazole Sodium (Protonix Tab) 40 mg QAM PO 08/15/16 10:00 09/14/16 09:59 08/16/16 08:16 40 MG Oxycodone HCl (Roxicodone Immediate Rel Tab) 5 mg Q6H PRN PO 08/15/16 12:30 08/29/16 12:29 08/16/16 02:49 5 MG Heparin Sodium (Porcine) (Heparin Iv Bolus) 2,000 unit 0600 IV 08/16/16 06:00 08/16/16 18:00 Epoetin Chito 7000 units/Syringe 0.35 ml @ 1 mls/min TODAY@0600 IV. 08/16/16 06:00 08/16/16 18:00 Sevelamer HCl (Renagel Tab) 1,600 mg TIDM PO 08/16/16 08:00 09/15/16 07:59 Impression (1) Cardiopulmonary arrest with successful resuscitation (2) Hyperkalemia (3) ESRD on hemodialysis (4) Hypertension Mr. Clay was admitted to the hospital following a syncopal event at home. He had missed his Sunday dialysis treatment and presented with a wide complex rhythm due to hyperkalemia. Serum potassium was 9.4. He received emergency dialysis and his cardiac rhythm stabilized. PMH - Membranous GN, failed DDRT, ESRD on HD TTS ([facility] - Dr. Palma), Type A Aortic Dissection, CABG x 1 with L Saphenous [place], RUE DVT due to PICC Line (April 2016), LLE compartment syndrome s/p fasciotomy, steroid-Induced DM and HTN. Recommendations ESRD: -- HD today for UF 3-4 kg as tolerated -- Next treatment tomorrow versus Sunday (TTS schedule as outpatient) -- Qb appropriate -- EDW ~58.5 kg (weight 63 kg this AM) -- 2K bath -- Renal diet HYPERKALEMIA: -- Good clearance with dialysis -- Dietary compliance and compliance with treatment reviewed HYPERTENSION: -- Anticipate some improvement with UF ANEMIA: -- Will provide Epogen w/ HD
--- NOTE | 2016-08-16 13:05 | Hospitalist Progress Note ---
Hospitalist Progress Note Date of Service Aug 16, 2016. (Khadijah Zelaya PA-C) Subjective Pt evaluation today including: conversation w/ patient, physical exam, chart review, lab review, review of inpatient medication list Patient seen and evaluated. Currently undergoing dialysis. Only complaint is of R arm pain. Swelling looks improved and cap refill adequate and pulses easily palpable and adequate. Pain is largely located at elbow. Pain medication is working adequately. Verbalizes no other needs. Stable on automotive tire tester. Constitutional: No fever, No chills Respiratory: + cough, + sputum, No shortness of breath Cardiovascular: No chest pain Abdomen: No pain, No nausea, No vomiting, No diarrhea, No constipation Musculoskeletal: + problem reported (RUE pain and edema) Male : No dysuria (Khadijah Zelaya PA-C) Medications Current Inpatient Medications Medications (Trade) Dose Ordered Sig/Moises Route Start Time Stop Time Status Last Admin Dose Admin Ioversol (Optiray 320) 100 ml UD PRN IV 08/14/16 09:45 08/18/16 09:44 Heparin Sodium (Porcine) (Heparin Sq 5000 Unit/0.5ml) 5,000 unit Q12H SQ 08/14/16 21:00 09/13/16 20:59 08/16/16 08:18 5,000 UNIT Lorazepam (Ativan Inj) 0.5 mg Q4H PRN IV 08/14/16 10:15 09/13/16 10:14 Carvedilol (Coreg Tab) 50 mg BID PO 08/14/16 21:00 09/13/16 20:59 Future hold 08/15/16 21:50 50 MG Hydralazine HCl (HydrALAZINE INJ) 15 mg Q6H PRN IV. 08/14/16 10:30 09/13/16 10:29 Glucose (Glucose 40% Gel) 15-30 GRAMS 15 GRAMS... UD PRN PO 08/14/16 11:30 09/13/16 11:29 Dextrose (Dextrose 50% 50ML Syringe) 25-50ML OF 50% DW IV FOR... UD PRN IV 08/14/16 11:30 09/13/16 11:29 Glucagon (Glucagon Inj) 1 mg UD PRN SQ 08/14/16 11:30 09/13/16 11:29 Levothyroxine Sodium (Synthroid Tab) 25 mcg DAILYBB PO 08/15/16 06:00 09/14/16 05:59 08/16/16 06:20 25 MCG Gabapentin (Neurontin Cap) 100 mg BID PO 08/15/16 10:00 09/14/16 09:59 08/15/16 21:50 100 MG Nortriptyline HCl (Pamelor Cap) 50 mg DAILY PRN PO 08/15/16 09:45 09/14/16 09:44 Sertraline HCl (Zoloft Tab) 50 mg DAILY PO 08/15/16 10:00 09/14/16 09:59 08/15/16 10:11 50 MG Lactobacillus Acidophilus (Lactinex Granules Pack) 1 gm TIDM PO 08/15/16 11:30 09/14/16 11:29 08/16/16 08:16 1 GM Pantoprazole Sodium (Protonix Tab) 40 mg QAM PO 08/15/16 10:00 09/14/16 09:59 08/15/16 10:11 40 MG Oxycodone HCl (Roxicodone Immediate Rel Tab) 5 mg Q6H PRN PO 08/15/16 12:30 08/29/16 12:29 08/16/16 02:49 5 MG Heparin Sodium (Porcine) (Heparin Iv Bolus) 2,000 unit 0600 IV 08/16/16 06:00 08/16/16 18:00 Epoetin [place] 7000 units/Syringe 0.35 ml @ 1 mls/min TODAY@0600 IV. 08/16/16 06:00 08/16/16 18:00 Sevelamer HCl (Renagel Tab) 1,600 mg TIDM PO 08/16/16 08:00 09/15/16 07:59 (Khadijah Zelaya, BEVC) Objective Vital Signs Date Time Temp Pulse Resp B/P (MAP) Pulse Ox O2 Delivery O2 Flow Rate FiO2 08/16/16 12:45 87 198/104 08/16/16 12:30 87 178/97 08/16/16 12:15 92 177/100 08/16/16 12:00 87 19 08/16/16 12:00 87 168/96 08/16/16 12:00 Room Air 08/16/16 11:45 85 155/92 08/16/16 11:30 87 169/96 08/16/16 11:15 86 157/90 08/16/16 11:00 84 151/89 08/16/16 10:45 84 158/87 08/16/16 10:30 84 146/91 08/16/16 10:15 85 151/90 08/16/16 10:00 87 158/97 08/16/16 09:45 83 157/97 08/16/16 09:30 84 149/101 08/16/16 09:15 87 159/98 08/16/16 09:02 87 165/108 08/16/16 08:52 36.4 87 165/108 (127) 08/16/16 08:23 36.9 83 17 149/90 (109) 94 Room Air 08/16/16 08:00 Room Air 08/16/16 04:00 Room Air 08/16/16 03:28 36.9 89 18 158/95 (116) 93 Room Air 08/16/16 00:00 Room Air 08/15/16 23:55 36.9 86 17 146/87 (106) 95 Room Air 08/15/16 20:00 Room Air 08/15/16 20:00 36.8 88 18 167/99 (121) 97 Room Air 08/15/16 16:33 36.7 81 16 156/89 (111) 96 Room Air 08/15/16 16:00 Room Air (Khadijah Zelaya, PA-C) Physical Exam General Appearance: no apparent distress, + thin Eyes: sclerae normal ENT: hearing grossly normal Neck: supple, trachea midline, + JVD Respiratory/Chest: lungs clear, normal breath sounds, no respiratory distress, no accessory muscle use Cardiovascular: regular rate, rhythm Abdomen: normal bowel sounds, non tender, soft Extremities: no pedal edema, no calf tenderness, + swelling (RUE edema looks mildly improved; 2+ radial/ulnar pulses; normal cap refill; no cyanosis), + pertinent finding (LLE fasciotomy scar well-approximated; LUE AV fistula + thrill +bruit) Neurologic/Psychiatric: alert, oriented x 3 Skin: normal color, warm/dry (Khadijah Zelaya, PA-C) Laboratory Results Last 24 Hours Test 08/16/16 05:39 White Blood Count 5.19 K/uL Red Blood Count 3.10 M/uL Hemoglobin 9.7 g/dL Hematocrit 30.3 % Mean Corpuscular Volume 97.7 fL Mean Corpuscular Hemoglobin 31.3 pg Mean Corpuscular Hemoglobin Concent 32.0 g/dl Platelet Count 111 K/uL Mean Platelet Volume 9.9 fL Neutrophils (%) (Auto) 66.1 % Lymphocytes (%) (Auto) 17.9 % Monocytes (%) (Auto) 8.5 % Eosinophils (%) (Auto) 6.9 % Basophils (%) (Auto) 0.4 % Neutrophils # (Auto) 3.43 K/uL Lymphocytes # (Auto) 0.93 K/uL Monocytes # (Auto) 0.44 K/uL Eosinophils # (Auto) 0.36 K/uL Basophils # (Auto) 0.02 K/uL RDW Standard Deviation 72.9 fL RDW Coefficient of Variation 20.6 % Immature Granulocyte % (Auto) 0.2 % Immature Granulocyte # (Auto) 0.01 K/uL Anisocytosis PRESENT Sodium Level 140 mmol/L Potassium Level 5.0 mmol/L Chloride Level 105 mmol/L Carbon Dioxide Level 24 mmol/L Anion Gap 11.0 mmol/L Blood Urea Nitrogen 46 mg/dl Creatinine 8.00 mg/dl Est Creatinine Clear Calc Drug Dose 13.3 ml/min Estimated GFR () 10.1 Estimated GFR (Non- 8.7 BUN/Creatinine Ratio 5.7 Random Glucose 95 mg/dl Calcium Level 8.5 mg/dl Phosphorus Level 8.9 mg/dl Magnesium Level 2.4 mg/dl Total Bilirubin 0.8 mg/dl Direct Bilirubin 0.4 mg/dl Aspartate Amino Transf (AST/SGOT) 25 U/L Alanine Aminotransferase (ALT/SGPT) 114 U/L Alkaline Phosphatase 173 U/L Total Protein 6.6 gm/dl Albumin 2.8 gm/dl (Khadijah Zelaya, BEVC) Assessment and Plan Mr. Clay is a 21 y/o male with Membranous Glomerulonephritis S/P Failed Transplants, ESRD on HD, Type A Aortic Dissection, CABG x 1 with L Saphenous [place], RUE DVT 2/2 PICC Line (April 2016), LLE Compartment Syndrome S/P Fasciotomy, Steroid-Induced DM, and HTN who presents after a syncopal episode and wide complex rhythm due to Hyperkalemia. He arrived as a Code Blue in the ED. Metabolic Encephalopathy 2/2 Hyperkalemia: RESOLVED Acute Hypoxic Respiratory Failure 2/2 Above and Sinus Arrest: RESOLVED - Intubated on 08/14 and successfully extubated on 08/14 - adequate oxygenation on RA - No compressions necessary - cardiac status improved with correction of hyperkalemia RUE DVT 2/2 PICC Line with Currently RUE Edema: MILD IMPROVEMENT - Received anticoagulation and currently off coverage - H/O LLE Compartment Syndrome S/P Fasciotomy - Neurovascular check and arm measurements - currently good cap refill and easily palpable pulses ESRD on HD (, , Sun): Membranous Glomerulonephritis S/P Failed Transplants - Received emergent dialysis 08/14 - will try to convert back to schedule - Dialyzes in [place] - Nephrology following - appreciate assistance with dialysis Hypothyroidism: - TSH at 8 with normal T4 - possible inflammatory changes for TSH? - Synthroid 25 mcg daily Question of HCAP vs Aspiration? - Imaging suggest possible atelectasis - will continue to monitor off ABx Type A Aortic Dissection S/P Repair and CABG with Saphenous [place] and HTN: - Extended admission at [facility] Pres in [place] requiring ECMO - Coreg 50 mg BID and Hydralazine PRN - On Lisinopril but hesitant to reinstitute this as hyperkalemia could have been played a role in his significant hyperkalemia on presentation Steroid-Induced DM: - Currently not on home regimen - monitor Anemia of Chronic Disease: STABLE - Monitor CBC DVT Prophylaxis: Heparin 5000 units SC BID Code Status: FULL RESUSCITATION Disposition: Continue to monitor recovery - suitable for transfer to Med/Surg Continued [facility] stay due to: multiple IV medications needed Discharge planning: home (Khadijah Zelaya PA-C) Attending Attestation & Admission Note: Pt seen/examined, chart reviewed, and care plan d/w MERRY Zelaya. I agree w/ the kennedy components of her documentation. continues to complain of right arm pain, mainly from the level of the right elbow and distal to such hurts to bend the elbow and states he has pain in the antecubital area as well as dorsal surface of forearm denies any dyspnea reports compliance with thyroid medication VSS no fever BPs elevated gen - flat affect neck - JVD to the jaw heart - RRR, s1, s2 lungs - CTA b/l abd - soft, renal transplant RLQ, splenomegaly (mild), liver edge palpable ext - RUE - generalized edema improved today, especially of the right hand radial and ulnar pulses on right 2+ cap refill right hand <2 sec minimal amount of blistering volar aspect of distal right arm - unchanged no palpable cords he is tender on dorsal surface of proximal forearm and has discomfort when I passively flex the elbow CBC, BMP noted to be normal today except creatinine LFTs mildly elevated - persistent A/P: 1. wide-complex tachycardia (possibly v-tach) 2nd to hyperkalemia - resolved. 2. hyperkalemia - due to noncompliance with HD in setting of ESRD - resolved. Holding HECTOR due to propensity for it causing hyperkalemia. 3. hyperglycemia - resolved. Can stop BSG's. 4. acute hypoxic resp failure - resolved, off the vent, stable sats RA. 5. RUE DVT - records indicate he was dx with RUE DVT in 04/2016 at [facility], [place], operated by [facility]. We do not have the actual report however. He took coumadin for 2-3 months by history. I am unclear if the DVTs seen this admission are chronic vs new. If new this would explain his edema of RUE and I would recommend returning to use of coumadin. If these are OLD then would simply observe. 6. edema, right arm - if DVTs are not new then the edema may be from IV infiltration as he had an IV in the right hand (dorsum) and he received copious IV meds through the IV during his code including calcium products. Perhaps he had extravasation of fluids/meds/calcium during that code. If in fact he had extravasation of calcium or sodium bicarbonate in the right arm, at this point being 48 hours out from his code event, warm compresses and observation are recommended. Pain control in meantime. Elevate right arm. 7. left foot drop - Umer Wen consult after d/c. 8. ESRD on HD - s/p HD today. 9. abnormal LFTs - lfts in April 2016 based on [facility] records were NORMAL. Had outpatient u/s of liver/spleen in May showing enlarged liver/spleen. Etiology? Consider repeat imaging. Consider GI referral. 10. h/o chronic biventricular CHF - consider echo while hospitalized. progressing Familia Mancilla MD (Familia Mancilla MD)
[2016-08-16] MEDS ORDERED: HydrALAZINE HCL 20 MG/ML VIAL IV. PRN (16:30)
[2016-08-16] MEDS ORDERED: ACETAMINOPHEN 500 MG TAB PO ONE (20:40)
[2016-08-16] MEDS ORDERED: ONDANSETRON INJ 2 MG/ML 2 ML VIAL ONE (23:49)
[2016-08-17] VITALS (23 sets, daily range): BP systolic 139–179; BP diastolic 70–103; PULSE 58–102; TEMP 36.2–37.1; O2SAT 94–97
[2016-08-17] MEDS ORDERED: ONDANSETRON INJ 2 MG/ML 2 ML VIAL IV PRN
[2016-08-17] MEDS ORDERED: DiphenhydrAMINE HCL 50 MG/ML VIAL ONE (01:06)
[2016-08-17] MEDS ORDERED: NURSING VERBAL MED ORDER ONE ×2 (01:15→21:30)
[2016-08-17] MEDS: LEVOTHYROXINE 50 MCG TAB PO SCH (06:19)
[2016-08-17] MEDS: SEVELAMER HYDROCH 800 MG TAB PO SCH ×3 (08:00→17:08)
[2016-08-17 08:31] LABS: BUN/CREATININE RATIO 4.3 (10-20); CALCIUM 8.6 mg/dl (8.5-10.1); CREATININE 5.3 mg/dl (0.60-1.40); POTASSIUM 4.5 mmol/L (3.5-5.1)
[2016-08-17] MEDS: GABAPENTIN 100 MG CAP PO SCH ×2 (09:00→20:42)
[2016-08-17] MEDS: CARVEDILOL 25 MG TAB PO SCH ×2 (09:00→20:42)
--- NOTE | 2016-08-17 09:28 | Nephrology Progress Note ---
Nephrology Progress Note Date of Service Aug 17, 2016. Chief Complaint ESRD Subjective No acute events overnight. Leonard is resting comfortably in bed this morning. He denies pain. He denies shortness of breath. He tolerated HD well yesterday , UF 3.5 kg. Appetite good. Review of Systems A complete review of systems was performed. Pertinent positives are noted above. All other systems are negative. Vital Signs Last 8 Hrs Date Time Temp Pulse Resp B/P (MAP) Pulse Ox O2 Delivery O2 Flow Rate FiO2 08/17/16 07:07 36.6 96 18 160/95 (116) 94 Room Air Last Recorded Weight Weight (Kilograms): 61.800 Physical Exam General Appearance: WD/WN, no apparent distress Head: normocephalic, atraumatic Eyes: normal inspection, sclerae normal ENT: normal ENT inspection, pharynx normal Neck: supple, no JVD Respiratory/Chest: lungs clear, no respiratory distress, no accessory muscle use Cardiovascular: regular rate, rhythm, no gallop Abdomen/GI: non tender, soft Extremities/Musculoskelatal: no pedal edema, + pertinent finding (AVF with thrill and bruit) Neurologic/Psych: alert, oriented x 3 Family History Cancer Hypertension Negative for CKD/ESRD Social History Smoking Status: Never smoker Smokeless Tobacco Use: No Alcohol Use: none Drug Use: none Marital Status: single 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 Lives with mother Laboratory Results Past 24 Hours 08/17/16 07:00 Test 08/17/16 07:00 Anion Gap 9.0 mmol/L (3-11) Est Creatinine Clear Calc Drug Dose 19.4 ml/min Estimated GFR () 16.6 Estimated GFR (Non- 14.4 BUN/Creatinine Ratio 4.3 (10-20) Calcium Level 8.6 mg/dl (8.5-10.1) Total Bilirubin 0.7 mg/dl (0.2-1) Direct Bilirubin 0.3 mg/dl (0-0.2) Aspartate Amino Transf (AST/SGOT) 16 U/L (15-37) Alanine Aminotransferase (ALT/SGPT) 90 U/L (12-78) Alkaline Phosphatase 175 U/L (45-117) Total Protein 6.9 gm/dl (6.4-8.2) Albumin 3.0 gm/dl (3.4-5.0) Allergies Coded Allergies: Penicillins (Unverified Allergy, Severe, FACE SWELLS, 08/14/16) Amoxicillin (Verified Allergy, Unknown, ?, 05/15/16) Medications Current Inpatient Medications Medications (Trade) Dose Ordered Sig/Moises Route Start Time Stop Time Status Last Admin Dose Admin Ioversol (Optiray 320) 100 ml UD PRN IV 08/14/16 09:45 08/18/16 09:44 Heparin Sodium (Porcine) (Heparin Sq 5000 Unit/0.5ml) 5,000 unit Q12H SQ 08/14/16 21:00 09/13/16 20:59 08/16/16 21:33 5,000 UNIT Lorazepam (Ativan Inj) 0.5 mg Q4H PRN IV 08/14/16 10:15 09/13/16 10:14 Carvedilol (Coreg Tab) 50 mg BID PO 08/14/16 21:00 09/13/16 20:59 Future hold 08/16/16 21:29 50 MG Glucose (Glucose 40% Gel) 15-30 GRAMS 15 GRAMS... UD PRN PO 08/14/16 11:30 09/13/16 11:29 Dextrose (Dextrose 50% 50ML Syringe) 25-50ML OF 50% DW IV FOR... UD PRN IV 08/14/16 11:30 09/13/16 11:29 Glucagon (Glucagon Inj) 1 mg UD PRN SQ 08/14/16 11:30 09/13/16 11:29 Gabapentin (Neurontin Cap) 100 mg BID PO 08/15/16 10:00 09/14/16 09:59 08/16/16 21:29 100 MG Nortriptyline HCl (Pamelor Cap) 50 mg DAILY PRN PO 08/15/16 09:45 09/14/16 09:44 Sertraline HCl (Zoloft Tab) 50 mg DAILY PO 08/15/16 10:00 09/14/16 09:59 08/16/16 13:28 50 MG Lactobacillus Acidophilus (Lactinex Granules Pack) 1 gm TIDM PO 08/15/16 11:30 09/14/16 11:29 08/16/16 17:08 1 GM Pantoprazole Sodium (Protonix Tab) 40 mg QAM PO 08/15/16 10:00 09/14/16 09:59 08/16/16 13:28 40 MG Sevelamer HCl (Renagel Tab) 1,600 mg TIDM PO 08/16/16 08:00 09/15/16 07:59 08/16/16 17:05 1,600 MG Hydralazine HCl (HydrALAZINE INJ) 10 mg Q6H PRN IV. 08/16/16 16:30 09/13/16 10:29 Oxycodone HCl (Roxicodone Immediate Rel Tab) 5 mg Q4H PRN PO 08/16/16 16:30 08/29/16 12:29 08/16/16 18:42 5 MG Oxycodone HCl (Roxicodone Immediate Rel Tab) 7.5 mg Q4H PRN PO 08/16/16 16:30 08/30/16 16:29 Ondansetron HCl (Zofran Inj) 4 mg Q4H PRN IV 08/17/16 00:00 09/16/16 00:00 Levothyroxine Sodium (Synthroid Tab) 50 mcg DAILYBB PO 08/17/16 06:30 09/14/16 05:59 08/17/16 06:19 50 MCG Impression (1) Cardiopulmonary arrest with successful resuscitation (2) Hyperkalemia (3) ESRD on hemodialysis (4) Hypertension Mr. Clay was admitted to the hospital following a syncopal event at home. He had missed his Sunday dialysis treatment and presented with a wide complex rhythm due to hyperkalemia. He received emergency dialysis and his cardiac rhythm stabilized. PMH - Membranous GN, failed DDRT, ESRD on HD TTS ([facility] - Dr. Palma), Type A Aortic Dissection, CABG x 1 with L Saphenous [place], RUE DVT due to PICC Line (April 2016), LLE compartment syndrome s/p fasciotomy, steroid-Induced DM and HTN. Recommendations ESRD: -- HD today for UF 2-3 kg as tolerated (orders entered into EMR) -- Resume TTS schedule -- EDW ~58.5 kg (61 kg this AM) -- Renal diet HYPERKALEMIA: -- Good clearance with dialysis -- Dietary compliance and compliance with treatment reviewed HYPERTENSION: -- Anticipate some improvement with UF ANEMIA: -- Epogen w/ HD
[2016-08-17] MEDS: HEPARIN SOD 5000 UNIT/0.5 ML CARP SQ SCH ×2 (09:51→20:48)
[2016-08-17] MEDS: LACTOBACILLUS ACIDOPHILUS 1 GM PACK PO SCH ×3 (09:53→17:00)
[2016-08-17] MEDS: OXYCODONE HCL IR 5 MG TAB (IMMEDIATE RELEASE) PO PRN ×3 (13:30→20:10)
[2016-08-17] MEDS: SERTRALINE HCL 50 MG TAB PO SCH (13:36)
[2016-08-17] MEDS: PANTOprazole SOD 40 MG TAB PO SCH (13:37)
[2016-08-17] MEDS ORDERED: LISINOPRIL 5 MG TAB PO ONE (18:30)
[2016-08-18] MEDS: OXYCODONE HCL IR 5 MG TAB (IMMEDIATE RELEASE) PO PRN ×7 (00:09→23:32)
--- NOTE | 2016-08-18 01:02 | Progress Note ---
Subjective Date of Service: Aug 17, 2016. Subjective Pt evaluation today including: conversation w/ patient, physical exam, chart review, lab review, review of studies (received records from [facility] including doppler report of CLAUDIA from April 2016), conversation w/ configuration management consultant (nephrology) , review of inpatient medication list Pain: right arm, but improving PO Intake: improved Voiding: no voiding problems (only voids once daily) overall his right arm pain is slowly getting better he mentions he had an echo at [facility] about 2 weeks ago and was told it was "doing fine" he admits to depression and "feels like a burden" on his mother he is willing to talk with a counselor; prefers a female counselor Problem List Medical Problems: (1) Acute hyperkalemia Status: Acute (2) Acute renal failure Status: Acute (3) Back pain Status: Acute (4) Bilateral pneumonia Status: Acute (5) Cardiac arrhythmia Status: Acute (6) Creatinine elevation Status: Acute (7) Dehydration Status: Acute (8) ESR raised Status: Acute (9) Fluid overload Status: Acute (10) Hypertensive emergency Status: Acute (11) Intractable vomiting Status: Acute (12) Leukocytosis Status: Acute (13) Nausea vomiting and diarrhea Status: Acute (14) Prolonged QT interval Status: Acute (15) Supratherapeutic INR Status: Acute Social History Problems: (1) Status post kidney transplant Status: Acute Review of Systems Constitutional: No fever Respiratory: No shortness of breath, No dyspnea on exertion Cardiac: No chest pain, No orthopnea Abdomen: No pain Psychiatric: + depression symptoms Objective Vital Signs Date Time Temp Pulse Resp B/P (MAP) Pulse Ox O2 Delivery O2 Flow Rate FiO2 08/18/16 00:00 Room Air 08/17/16 23:47 36.5 102 16 179/96 (123) 96 Room Air 08/17/16 20:40 94 157/89 (111) 08/17/16 18:44 94 150/85 (106) 08/17/16 16:00 Room Air 08/17/16 15:10 37.1 97 18 152/95 (114) 97 Room Air 08/17/16 13:10 36.5 84 142/70 (94) 08/17/16 12:50 91 158/94 08/17/16 12:30 81 155/90 08/17/16 12:15 84 162/91 08/17/16 12:00 76 139/85 08/17/16 11:45 81 139/82 08/17/16 11:30 79 139/76 08/17/16 11:15 84 143/84 08/17/16 11:00 91 150/79 08/17/16 10:45 83 144/87 08/17/16 10:30 93 155/94 08/17/16 10:15 84 154/92 08/17/16 10:06 36.2 90 167/96 (119) 08/17/16 10:00 84 166/90 08/17/16 09:50 84 166/100 08/17/16 08:00 Room Air 08/17/16 07:07 36.6 96 18 160/95 (116) 94 Room Air Physical Exam General Appearance: no apparent distress ENT: pharynx normal Neck: + JVD Respiratory/Chest: lungs clear, no respiratory distress, no accessory muscle use Cardiovascular: regular rate, rhythm, no gallop, + pertinent finding ( prominent s2) Abdomen: normal bowel sounds, non tender, soft, no organomegaly, + pertinent finding (transplant right side of abdomen) Extremities: no pedal edema, + swelling (right arm, especially distal - improved; marked improvement vs yesterday's exam; I am able to passively move the right elbow w/o difficulty) Neurologic/Psychiatric: alert, oriented x 3, + depressed affect Skin: + pertinent finding (scars present over left distal leg; av fistula left arm) Comments: right upper arm wnl; no palpable cords Laboratory Results Last 24 Hours Test 08/17/16 07:00 Sodium Level 140 mmol/L Potassium Level 4.5 mmol/L Chloride Level 104 mmol/L Carbon Dioxide Level 27 mmol/L Anion Gap 9.0 mmol/L Blood Urea Nitrogen 23 mg/dl Creatinine 5.30 mg/dl Est Creatinine Clear Calc Drug Dose 19.4 ml/min Estimated GFR () 16.6 Estimated GFR (Non- 14.4 BUN/Creatinine Ratio 4.3 Random Glucose 77 mg/dl Calcium Level 8.6 mg/dl Total Bilirubin 0.7 mg/dl Direct Bilirubin 0.3 mg/dl Aspartate Amino Transf (AST/SGOT) 16 U/L Alanine Aminotransferase (ALT/SGPT) 90 U/L Alkaline Phosphatase 175 U/L Total Protein 6.9 gm/dl Albumin 3.0 gm/dl Assessment and Plan Attending Attestation & Admission Note: 21yo male with: 1. wide-complex tachycardia (possibly v-tach) 2nd to hyperkalemia - resolved. 2. hyperkalemia - due to noncompliance with HD in setting of ESRD - resolved. 3. hyperglycemia - resolved. 4. acute hypoxic resp failure - resolved. 5. RUE DVT - RUE doppler from 05/05/2016 done at [facility] showed axillary and basilic vein DVTs. He took coumadin for 2-3 months by history and then was told to stop. RUE doppler this admission with basilic vein and cephalic vein DVTs. since the cephalic vein DVT is new I would consider restarting coumadin. Will d /w the medical team. 6. edema, right arm - improved. Suspect extravasation of fluids/meds/calcium during his code at time of ER presentation. If in fact he had extravasation of calcium or sodium bicarbonate in the right arm the Rx is warm compresses and observation. Pain control and elevate the arm. 7. left foot drop - Umer Wen consult after d/c. 8. ESRD on HD - s/p HD today. Appreciate nephrology consultation. 9. abnormal LFTs - lfts in April [address] [facility] records were NORMAL. Had outpatient u/s of liver/spleen in May showing enlarged liver/spleen. Etiology? Consider repeat imaging. Consider GI referral. 10. h/o chronic biventricular CHF - [facility]; apparently the echo was done in the last 2-3 weeks. Cont BB Resume HECTOR 11. HTN - patient desires that the HECTOR be restarted; he reports he did not have good BP control with hydralazine and amlodipine. resume HECTOR. 12. depression - zoloft; outpatient counseling. hopefully home soon Discharge planning: home
[2016-08-18 01:33] VITALS: BP 163/101
[2016-08-18] MEDS ORDERED: MoRPHine SULFATE 2 MG/ML CARP IV STA (05:35)
[2016-08-18] MEDS: LEVOTHYROXINE 50 MCG TAB PO SCH (06:03)
[2016-08-18 07:38] VITALS: BP 136/86; PULSE 93; TEMP 36.9; O2SAT 94
[2016-08-18 07:41] LABS: BASO % 0.5 %; BASO ABS # 0.04 K/uL (0-0.2); EOS % 4.8 %; HEMATOCRIT 31.5 % (42-52); IG% 0.4 %; LYMPH ABS # 0.88 K/uL (1.2-3.4); MEAN CELL VOLUME 97.2 fL (80-100); MEAN CORPUSCULAR HEMOGLOBIN 30.9 pg (25-34); MEAN CORPUSCULAR HGB CONC 31.7 g/dl (32-36); MEAN PLATELET VOLUME 9.5 fL (7.4-10.4); MONO % 9.8 %; NEUT % 72.5 %; PLATELET COUNT 138 K/uL (130-400); RED BLOOD COUNT 3.24 M/uL (4.7-6.1); WHITE BLOOD COUNT 7.32 K/uL (4.8-10.8)
[2016-08-18 08:16] LABS: BUN/CREATININE RATIO 4.5 (10-20); CREATININE 5.2 mg/dl (0.60-1.40); MAGNESIUM 2.3 mg/dl (1.8-2.4); PHOSPHORUS 5.7 mg/dl (2.5-4.9); POTASSIUM 4.6 mmol/L (3.5-5.1)
[2016-08-18] MEDS: SERTRALINE HCL 50 MG TAB PO SCH (08:20)
[2016-08-18] MEDS: SEVELAMER HYDROCH 800 MG TAB PO SCH ×3 (08:20→16:34)
[2016-08-18] MEDS: LACTOBACILLUS ACIDOPHILUS 1 GM PACK PO SCH ×3 (08:21→16:36)
[2016-08-18] MEDS: GABAPENTIN 100 MG CAP PO SCH ×2 (08:23→20:49)
[2016-08-18] MEDS: CARVEDILOL 25 MG TAB PO SCH ×2 (08:23→20:49)
[2016-08-18 08:27] LABS: CALCIUM 9.5 mg/dl (8.5-10.1)
[2016-08-18 09:14] LABS: ANISOCYTOSIS PRESENT; COMPLETE YES; HYPERSEGMENTED POLYS 1+
[2016-08-18] MEDS: PANTOprazole SOD 40 MG TAB PO SCH (09:22)
[2016-08-18] MEDS: LISINOPRIL 20 MG TAB PO SCH (09:22)
[2016-08-18] MEDS: HEPARIN SOD 5000 UNIT/0.5 ML CARP SQ SCH ×2 (09:31→20:52)
[2016-08-18] MEDS ORDERED: NURSING VERBAL MED ORDER ONE (14:00)
[2016-08-18 15:07] VITALS: BP 132/71; PULSE 98; TEMP 36.7; O2SAT 97
[2016-08-18] MEDS: WARFARIN SOD 5 MG TAB PO SCH (16:36)
--- NOTE | 2016-08-18 17:33 | Nephrology Progress Note ---
Nephrology Progress Note Date of Service Aug 18, 2016. Chief Complaint ESRD Hamilton Valle was seen and evaluated in his hospital room overnight. Plan of care discussed with Dr. Velazquez this morning. Patient continues to experience pain in his left upper extremity. He denies shortness of breath. He tolerated HD well yesterday. Net UF 3 kg. Weight remains slightly higher than EDW. Blood pressure has improved. Review of Systems A complete review of systems was performed. Pertinent positives are noted above. All other systems are negative. Vital Signs Last 8 Hrs Date Time Temp Pulse Resp B/P (MAP) Pulse Ox O2 Delivery O2 Flow Rate FiO2 08/18/16 16:00 Room Air 08/18/16 15:07 36.7 98 18 132/71 (91) 97 Room Air 98 I & O 24-Hour Column 08/19/16 08:00 Intake Total 340 ml Balance 340 ml Last Recorded Weight Weight (Kilograms): 60.200 Physical Exam General Appearance: WD/WN, no apparent distress Head: normocephalic, atraumatic Eyes: normal inspection, sclerae normal ENT: normal ENT inspection, pharynx normal Neck: supple, no JVD Respiratory/Chest: lungs clear, no respiratory distress, no accessory muscle use Cardiovascular: regular rate, rhythm, no gallop Abdomen/GI: non tender, soft Extremities/Musculoskelatal: normal inspection, no pedal edema Neurologic/Psych: alert, oriented x 3 Family History Cancer Hypertension Negative for CKD/ESRD Social History Smoking Status: Never smoker Smokeless Tobacco Use: No Alcohol Use: none Drug Use: none Marital Status: single 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 Lives with mother Laboratory Results Past 24 Hours 08/18/16 07:09 Red Blood Count 3.24, Mean Corpuscular Volume 97.2, Mean Corpuscular Hemoglobin 30.9, Mean Corpuscular Hemoglobin Concent 31.7, Mean Platelet Volume 9.5, Neutrophils (%) (Auto) 72.5, Lymphocytes (%) (Auto) 12.0, Monocytes (%) (Auto) 9.8, Eosinophils (%) (Auto) 4.8, Basophils (%) (Auto) 0.5, Neutrophils # (Auto) 5.30, Lymphocytes # (Auto) 0.88, Monocytes # (Auto) 0.72, Eosinophils # (Auto) 0.35, Basophils # (Auto) 0.04 08/18/16 07:09 Test 08/18/16 07:09 White Blood Count 7.32 K/uL (4.8-10.8) Red Blood Count 3.24 M/uL (4.7-6.1) Hemoglobin 10.0 g/dL (14.0-18.0) Hematocrit 31.5 % (42-52) Mean Corpuscular Volume 97.2 fL (80-100) Mean Corpuscular Hemoglobin 30.9 pg (25-34) Mean Corpuscular Hemoglobin Concent 31.7 g/dl (32-36) Platelet Count 138 K/uL (130-400) Mean Platelet Volume 9.5 fL (7.4-10.4) Neutrophils (%) (Auto) 72.5 % Lymphocytes (%) (Auto) 12.0 % Monocytes (%) (Auto) 9.8 % Eosinophils (%) (Auto) 4.8 % Basophils (%) (Auto) 0.5 % Neutrophils # (Auto) 5.30 K/uL (1.4-6.5) Lymphocytes # (Auto) 0.88 K/uL (1.2-3.4) Monocytes # (Auto) 0.72 K/uL (0.11-0.59) Eosinophils # (Auto) 0.35 K/uL (0-0.5) Basophils # (Auto) 0.04 K/uL (0-0.2) RDW Standard Deviation 72.4 fL (36.4-46.3) RDW Coefficient of Variation 20.3 % (11.5-14.5) Immature Granulocyte % (Auto) 0.4 % Immature Granulocyte # (Auto) 0.03 K/uL (0.00-0.02) Hypersegmented Polys 1+ Anisocytosis PRESENT Anion Gap 8.0 mmol/L (3-11) Est Creatinine Clear Calc Drug Dose 19.3 ml/min Estimated GFR () 17.0 Estimated GFR (Non- 14.7 BUN/Creatinine Ratio 4.5 (10-20) Calcium Level 9.5 mg/dl (8.5-10.1) Phosphorus Level 5.7 mg/dl (2.5-4.9) Magnesium Level 2.3 mg/dl (1.8-2.4) Total Bilirubin 0.7 mg/dl (0.2-1) Direct Bilirubin 0.4 mg/dl (0-0.2) Aspartate Amino Transf (AST/SGOT) 12 U/L (15-37) Alanine Aminotransferase (ALT/SGPT) 77 U/L (12-78) Alkaline Phosphatase 192 U/L (45-117) Total Protein 7.7 gm/dl (6.4-8.2) Albumin 3.5 gm/dl (3.4-5.0) Allergies Coded Allergies: Penicillins (Unverified Allergy, Severe, FACE SWELLS, 08/14/16) Amoxicillin (Verified Allergy, Unknown, ?, 05/15/16) Medications Current Inpatient Medications Medications (Trade) Dose Ordered Sig/Moises Route Start Time Stop Time Status Last Admin Dose Admin Heparin Sodium (Porcine) (Heparin Sq 5000 Unit/0.5ml) 5,000 unit Q12H SQ 08/14/16 21:00 09/13/16 20:59 08/18/16 09:31 5,000 UNIT Lorazepam (Ativan Inj) 0.5 mg Q4H PRN IV 08/14/16 10:15 09/13/16 10:14 Carvedilol (Coreg Tab) 50 mg BID PO 08/14/16 21:00 09/13/16 20:59 Future hold 08/18/16 08:23 50 MG Gabapentin (Neurontin Cap) 100 mg BID PO 08/15/16 10:00 09/14/16 09:59 08/18/16 08:23 100 MG Nortriptyline HCl (Pamelor Cap) 50 mg DAILY PRN PO 08/15/16 09:45 09/14/16 09:44 08/17/16 21:55 50 MG Sertraline HCl (Zoloft Tab) 50 mg DAILY PO 08/15/16 10:00 09/14/16 09:59 08/18/16 08:20 50 MG Lactobacillus Acidophilus (Lactinex Granules Pack) 1 gm TIDM PO 08/15/16 11:30 09/14/16 11:29 08/18/16 08:21 1 GM Pantoprazole Sodium (Protonix Tab) 40 mg QAM PO 08/15/16 10:00 09/14/16 09:59 08/18/16 09:22 40 MG Sevelamer HCl (Renagel Tab) 1,600 mg TIDM PO 08/16/16 08:00 09/15/16 07:59 08/18/16 16:34 1,600 MG Hydralazine HCl (HydrALAZINE INJ) 10 mg Q6H PRN IV. 08/16/16 16:30 09/13/16 10:29 Ondansetron HCl (Zofran Inj) 4 mg Q4H PRN IV 08/17/16 00:00 09/16/16 00:00 Levothyroxine Sodium (Synthroid Tab) 50 mcg DAILYBB PO 08/17/16 06:30 09/14/16 05:59 08/18/16 06:03 50 MCG Lisinopril (Zestril Tab) 20 mg QAM PO 08/18/16 09:00 09/17/16 08:59 08/18/16 09:22 20 MG Warfarin Sodium (Coumadin Tab) 5 mg DAILY@16 PO 08/18/16 16:00 09/17/16 15:59 08/18/16 16:36 5 MG Oxycodone HCl (Roxicodone Immediate Rel Tab) 10 mg Q4H PRN PO 08/18/16 14:00 09/01/16 13:59 Impression (1) Cardiopulmonary arrest with successful resuscitation (2) Hyperkalemia (3) ESRD on hemodialysis (4) Hypertension Mr. Clay was admitted to the hospital following a syncopal event at home. He had missed his scheduled dialysis treatment and presented with a wide complex rhythm due to hyperkalemia. He was also diagnosed with a right upper extremity DVT (basilic vein and cephalic vein). He was previously treated in August for axillary and basilic vein DVTs with Coumadin x 3 months. PMH - Membranous GN, failed DDRT, ESRD on HD TTS ([facility] - Dr. 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 Recommendations ESRD: -- HD tomorrow per TTS schedule -- EDW ~58.5 kg as outpatient -- Renal diet HYPERKALEMIA: -- Good clearance with dialysis -- K restricted diet HYPERTENSION: -- Improving with UF -- Continue HECTOR ANEMIA: -- Epogen w/ HD CKD/MBD: -- Sevelamer QAC DVT: -- Starting Coumadin today
[2016-08-18] MEDS ORDERED: SODIUM CHLORIDE 0.65% NA SOLN 45 ML (OCEAN) PRN (18:30)
[2016-08-18] MEDS: TRIAMCINOLONE ACET NASAL SPRAY 10.8ML BTL NAE SCH (20:03)
[2016-08-18 20:45] VITALS: BP 135/76; PULSE 96
[2016-08-18] MEDS: DOXYCYCLINE HYCLATE 100 MG CAP PO SCH (20:49)
--- NOTE | 2016-08-18 23:37 | DIAGNOSTIC IMAGING REPORT ---
MRI OF THE RIGHT FOREARM NONVASCULAR CLINICAL HISTORY: Cellulitis. Clinical concern for abscess. COMPARISON STUDY: Ultrasound of the right upper extremity dated 08/14/2016. TECHNIQUE: MRI of the right forearm is performed utilizing various T1 and T2-weighted sequences in the axial, sagittal, coronal planes. IV contrast was not administered for this examination. The examination is degraded by motion artifact. FINDINGS: There is no acute bony abnormality seen in the right forearm. No fracture is suspected. The visualized portions of the biceps tendon appear intact. There is diffuse subcutaneous soft tissue edema seen throughout the forearm with trace subcutaneous fluid. No organized fluid collection is seen to indicate abscess. The regional musculature is normal in bulk and signal intensity. No intramuscular edema is identified. IMPRESSION: 1. No acute bony abnormality is identified in the right forearm. 2. Diffuse subcutaneous soft tissue edema and trace subcutaneous fluid is identified and consistent with the reported clinical history of cellulitis. 3. No organized fluid collection is seen to indicate abscess as clinically queried. Dictated: 08/18/2016 11:26 PM Transcribed: 08/18/2016 11:36 PM [email or web address] Electronically signed by: Edgard López M.D. 08/19/2016 12:02 AM Dictated Date/Time: 08/18/2016 11:26 PM
--- NOTE | 2016-08-18 23:57 | ORTHOPEDIC CONSULTATION ---
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 Apparently, the patient came to the hospital on Sunday feeling badly, nauseous, and eventually ended up having ventricular tachycardia necessitating code blue resuscitation. During the resuscitation, he received multiple life-saving drugs through his IV and developed right forearm pain and swelling since that time. States that the pain and swelling were severe and significant and it was required that he be given significant dosages of narcotics to control his pain. He did state that the pain is somewhat improved over the last 24-36 hours, however, continues to be significantly painful for him. There is a known DVT of his cephalic vein in the right upper extremity which he was being treated on Coumadin prior to admission. MEDICAL HISTORY: Includes renal failure related to membranoproliferative glomerulonephritis, acute hyperkalemia, acute renal failure, back pain, bilateral pneumonia, cardiac arrhythmia, creatinine elevation, dehydration, elevated sed rate, fluid overload, hypertensive emergency, intractable vomiting, leukocytosis, nausea, diarrhea, prolonged QT interval, supratherapeutic INR, recent code blue resuscitation for cardiac dysrhythmia, membranoproliferative glomerulonephritis, history of AAA, end-stage renal disease. PAST SURGICAL HISTORY: Repair of aortic dissection in 02/2016, history of ECMO for 11 days, arteriovenous shunt, kidney transplants x2. ALLERGIES: PENICILLIN WITH HIVES AND SWELLING IN HIS FACE AND LIPS FOLLOWING EXPOSURE. MEDICATIONS: Please note the large number of medications listed in the medical record. SOCIAL HISTORY: He denies tobacco, alcohol or drug use. He lives with his family. He is a student. PHYSICAL EXAMINATION: GENERAL: This is a 21-year-old lying supine in his hospital room bed. He is alert and oriented x3. Speech clear and fluent. Affect is appropriate. EXTREMITIES: Examination of the right upper extremity demonstrates multiple previous needle sticks and scarring to the right upper extremity from multiple venous catheterizations. He has streaking of the basilic vein along the ulnar border of the right forearm extending up toward the medial elbow. It is tender to palpation, there is ropy sensation, and there is linear cellulitis along the course of the vein. He also has ropiness along the systolic vein more proximally in the right upper extremity. It is minimally tender to palpation. Antecubital fossa and the volar aspect of his right wrist are also tender to palpation at the sites of multiple needle sticks. Radial pulses 1+/4. He has atrophy of the thenar and hypothenar and interosseous muscles of the bilateral upper extremities. No fluid collections, fluctuance, or discharge, drainage, or skin breakdown noted in the right upper extremity. Ultrasound reviewed. Laboratories reviewed. IMPRESSION: 1. Right upper extremity phlebitis basilic vein. 2. Cellulitis right forearm ulnar aspect. RECOMMENDATION: MRI with contrast if allowed by the medical service and the nephrology service, otherwise without contrast. Rule out abscess formation, particularly around the area of concern, the ulnar border of the forearm right upper extremity. We will follow with you. Thank you for the opportunity to consult in the care of this patient.
[2016-08-19] VITALS (22 sets, daily range): BP systolic 114–141; BP diastolic 57–90; PULSE 76–97; TEMP 36.4–37; O2SAT 95–97
--- NOTE | 2016-08-19 06:08 | Progress Note ---
Subjective Date of Service: late entry for visit Aug 18, 2016. Subjective Pt evaluation today including: conversation w/ patient, conversation w/ family (mother by phone), physical exam, chart review, lab review, conversation w/ plan consultant (orthopedics, nephrology), review of inpatient medication list Pain: ongoing, right forearm PO Intake: normal Voiding: no voiding problems (voids about 1x/day) he overall is feeling ok but continues with severe pain in the right arm extending from the elbow to the right wrist denies upper arm pain denies left arm pain has some mild cough with sputum production he also states he has severe nasal congestion and inquires if ENT could be consulted to "pull some mucous out" of his nose Problem List Medical Problems: (1) Acute hyperkalemia Status: Acute (2) Acute renal failure Status: Acute (3) Back pain Status: Acute (4) Bilateral pneumonia Status: Acute (5) Cardiac arrhythmia Status: Acute (6) Creatinine elevation Status: Acute (7) Dehydration Status: Acute (8) ESR raised Status: Acute (9) Fluid overload Status: Acute (10) Hypertensive emergency Status: Acute (11) Intractable vomiting Status: Acute (12) Leukocytosis Status: Acute (13) Nausea vomiting and diarrhea Status: Acute (14) Prolonged QT interval Status: Acute (15) Supratherapeutic INR Status: Acute Social History Problems: (1) Status post kidney transplant Status: Acute Review of Systems Constitutional: No fever Respiratory: + cough, + sputum, No shortness of breath Cardiac: No chest pain Abdomen: No pain Objective Vital Signs Date Time Temp Pulse Resp B/P (MAP) Pulse Ox O2 Delivery O2 Flow Rate FiO2 08/18/16 23:59 Room Air 08/18/16 20:45 96 135/76 (95) 08/18/16 20:00 Room Air 08/18/16 16:00 Room Air 08/18/16 15:07 36.7 98 18 132/71 (91) 97 Room Air 98 08/18/16 08:00 Room Air 08/18/16 07:38 36.9 93 18 136/86 (103) 94 Room Air Physical Exam General Appearance: no apparent distress ENT: pharynx normal Neck: + JVD Respiratory/Chest: lungs clear, no respiratory distress, no accessory muscle use, + rales (minimal, bases) Cardiovascular: regular rate, rhythm, no gallop, + systolic murmur (LLSBS, 03/03) Abdomen: normal bowel sounds, non tender, soft, + splenomegaly Extremities: no pedal edema, + swelling (right forearm - but markedly improved from prios exams) Neurologic/Psychiatric: alert, oriented x 3 Skin: + pertinent finding (faint erythema just distal to the elbow on the medial aspect; no palpable cords) Comments: overall swelling of right arm is MUCH improved from prior exams Laboratory Results Last 24 Hours Test 08/18/16 07:09 08/19/16 04:44 White Blood Count 7.32 K/uL Red Blood Count 3.24 M/uL Hemoglobin 10.0 g/dL Hematocrit 31.5 % Mean Corpuscular Volume 97.2 fL Mean Corpuscular Hemoglobin 30.9 pg Mean Corpuscular Hemoglobin Concent 31.7 g/dl Platelet Count 138 K/uL Mean Platelet Volume 9.5 fL Neutrophils (%) (Auto) 72.5 % Lymphocytes (%) (Auto) 12.0 % Monocytes (%) (Auto) 9.8 % Eosinophils (%) (Auto) 4.8 % Basophils (%) (Auto) 0.5 % Neutrophils # (Auto) 5.30 K/uL Lymphocytes # (Auto) 0.88 K/uL Monocytes # (Auto) 0.72 K/uL Eosinophils # (Auto) 0.35 K/uL Basophils # (Auto) 0.04 K/uL RDW Standard Deviation 72.4 fL RDW Coefficient of Variation 20.3 % Immature Granulocyte % (Auto) 0.4 % Immature Granulocyte # (Auto) 0.03 K/uL Hypersegmented Polys 1+ Anisocytosis PRESENT Sodium Level 137 mmol/L Potassium Level 4.6 mmol/L Chloride Level 103 mmol/L Carbon Dioxide Level 26 mmol/L Anion Gap 8.0 mmol/L Blood Urea Nitrogen 24 mg/dl Creatinine 5.20 mg/dl Est Creatinine Clear Calc Drug Dose 19.3 ml/min Estimated GFR () 17.0 Estimated GFR (Non- 14.7 BUN/Creatinine Ratio 4.5 Random Glucose 89 mg/dl Calcium Level 9.5 mg/dl Phosphorus Level 5.7 mg/dl Magnesium Level 2.3 mg/dl Total Bilirubin 0.7 mg/dl Direct Bilirubin 0.4 mg/dl Aspartate Amino Transf (AST/SGOT) 12 U/L Alanine Aminotransferase (ALT/SGPT) 77 U/L Alkaline Phosphatase 192 U/L Total Protein 7.7 gm/dl Albumin 3.5 gm/dl Assessment and Plan 21yo male with: 1. wide-complex tachycardia (possibly v-tach) 2nd to hyperkalemia - resolved. 2. hyperkalemia - due to noncompliance with HD in setting of ESRD - resolved. 3. hyperglycemia - resolved. 4. acute hypoxic resp failure - resolved. 5. RUE DVT - RUE doppler from 05/05/2016 done at [facility] showed axillary and basilic vein DVTs. He took coumadin for 2-3 months by history and then was told to stop. RUE doppler this admission with basilic vein and cephalic vein DVTs. since the cephalic vein DVT is new I have recommended restarting coumadin. Start coumadin 5mg today and follow daily INR. 6. edema, right arm - improved but still with significant pain. Suspect extravasation of fluids/meds/calcium during his code at time of ER presentation. If in fact he had extravasation of calcium or sodium bicarbonate in the right arm the Rx is warm compresses and observation. The new DVT could be contributing to pain as well but doubt this is the sole player. I spoke with Dr. Blackburn who will consult today for any new recommendations ( imaging, etc). 7. left foot drop - Umer Wen consult after d/c. 8. ESRD on HD - HD tomorrow. Appreciate nephrology consultation. 9. abnormal LFTs - lfts in April 2016 based on [facility] records were NORMAL. Had outpatient u/s of liver/spleen in May showing enlarged liver/spleen. Etiology? Consider repeat imaging. Consider GI referral. 10. chronic systolic CHF, EF 40-45%, with element of mild cor pulmonale - echo report from [facility] obtained; this was done about 2 weeks ago. EF 40-45%, mild right ventricular dysfunction, severe TR. This is similar to echo done earlier this year at [facility]. Remains compensated. Cont BB, HECTOR. 11. HTN - improving; HECTOR and BB. 12. depression - zoloft; outpatient counseling. 13. h. flu sinusitis - start doxy 100mg BID x 10 days. mother updated by phone today time 40 minutes patient encouraged to ambulate/OOB Continued [facility] stay due to: inadequate oral pain control Discharge planning: home
[2016-08-19] MEDS: OXYCODONE HCL IR 5 MG TAB (IMMEDIATE RELEASE) PO PRN ×4 (06:41→22:49)
[2016-08-19] MEDS: LEVOTHYROXINE 50 MCG TAB PO SCH (06:42)
[2016-08-19 06:53] LABS: BASO % 0.4 %; BASO ABS # 0.03 K/uL (0-0.2); EOS % 5.4 %; HEMATOCRIT 31.5 % (42-52); IG% 0.1 %; LYMPH % 13.7 %; LYMPH ABS # 1.07 K/uL (1.2-3.4); MEAN CELL VOLUME 98.4 fL (80-100); MEAN CORPUSCULAR HEMOGLOBIN 30.3 pg (25-34); MEAN CORPUSCULAR HGB CONC 30.8 g/dl (32-36); MEAN PLATELET VOLUME 9.7 fL (7.4-10.4); MONO % 8.9 %; NEUT % 71.5 %; PLATELET COUNT 152 K/uL (130-400); WHITE BLOOD COUNT 7.83 K/uL (4.8-10.8)
[2016-08-19 07:03] LABS: INR 1.2 (0.9-1.1); PROTHROMBIN TIME (PATIENT) 12.4 SECONDS (9.0-12.0)
[2016-08-19 07:31] LABS: ANISOCYTOSIS PRESENT; COMPLETE YES
[2016-08-19 07:55] LABS: BUN/CREATININE RATIO 4.9 (10-20); CALCIUM 9.4 mg/dl (8.5-10.1); CREATININE 7.5 mg/dl (0.60-1.40); MAGNESIUM 2.5 mg/dl (1.8-2.4); PHOSPHORUS 5.6 mg/dl (2.5-4.9)
[2016-08-19] MEDS: SEVELAMER HYDROCH 800 MG TAB PO SCH ×3 (08:00→17:07)
[2016-08-19] MEDS ORDERED: EPOETIN ALFA 4000 UNITS/ML VIAL IV SCH (08:00)
[2016-08-19] MEDS: LACTOBACILLUS ACIDOPHILUS 1 GM PACK PO SCH ×3 (08:00→12:02)
[2016-08-19] MEDS ORDERED: HEPARIN SOD (PORCINE) 1000 UNIT/ML 10 ML VIAL IV SCH (08:00)
[2016-08-19] MEDS ORDERED: DiphenhydrAMINE INJ 25 MG in SYRINGE 0 ML IV SCH (08:15)
[2016-08-19] MEDS ORDERED: NURSING VERBAL MED ORDER ONE (08:15)
[2016-08-19] MEDS ORDERED: DiphenhydrAMINE HCL 50 MG/ML VIAL IV SCH (08:15)
[2016-08-19] MEDS: TRIAMCINOLONE ACET NASAL SPRAY 10.8ML BTL NAE SCH ×2 (08:16→12:04)
[2016-08-19] MEDS: LISINOPRIL 20 MG TAB PO SCH ×2 (08:17→12:05)
[2016-08-19] MEDS: CARVEDILOL 25 MG TAB PO SCH ×3 (08:17→21:38)
[2016-08-19] MEDS: GABAPENTIN 100 MG CAP PO SCH ×3 (08:17→21:40)
[2016-08-19] MEDS: PANTOprazole SOD 40 MG TAB PO SCH ×2 (08:17→12:03)
[2016-08-19] MEDS: HEPARIN SOD 5000 UNIT/0.5 ML CARP SQ SCH ×2 (09:00→21:40)
--- NOTE | 2016-08-19 11:01 | Dialysis Progress Note ---
Hemodialysis Note Date of Service Aug 19, 2016. Chief Complaint Follow-up for end-stage renal disease on hemodialysis. Hamilton Russ was seen and examined during dialysis this morning. Tolerating dialysis well. He just received Benadryl and currently sleepy but easily arousable and answered question appropriately. blood pressure has been stable. Review of Systems A complete review of systems was performed. Pertinent positives are noted above. All other systems are negative. Vital Signs Last 8 Hrs Date Time Temp Pulse Resp B/P (MAP) Pulse Ox O2 Delivery O2 Flow Rate FiO2 08/19/16 10:45 86 125/57 08/19/16 10:30 94 121/59 08/19/16 10:15 82 114/59 08/19/16 10:00 76 118/64 08/19/16 09:45 84 115/65 08/19/16 09:30 97 118/59 08/19/16 09:16 93 120/63 08/19/16 09:15 93 120/63 08/19/16 09:00 93 119/58 08/19/16 08:45 79 128/69 08/19/16 08:30 88 119/81 08/19/16 08:15 81 127/74 08/19/16 08:00 90 136/76 08/19/16 07:57 Room Air 08/19/16 07:45 94 133/77 08/19/16 07:40 36.4 87 139/90 (106) 08/19/16 07:20 37.0 96 18 141/83 (102) 97 Room Air Last Recorded Weight Weight (Kilograms): 63.700 Physical Exam GENERAL: Young male , AAA x 3, sleepy, not in any distress. NECK: Supple, no JVD. RESPIRATORY: Normal breathing efforts, no accessory muscle use, clear to auscultation bilaterally, no wheezes or rales. CARDIOVASCULAR: S1, S2 normal, rate rhythm regular. EXTREMITY: No lower extremity edema NEURO: speech fluent. PSYCHIATRY: Normal mood and judgment Family History Negative for CKD/ESRD Social History Smoking Status: Never smoker Smokeless Tobacco Use: No Alcohol Use: none Drug Use: none Marital Status: single 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 Lives with mother Laboratory Results Past 24 Hours 08/19/16 06:36 Red Blood Count 3.20, Mean Corpuscular Volume 98.4, Mean Corpuscular Hemoglobin 30.3, Mean Corpuscular Hemoglobin Concent 30.8, Mean Platelet Volume 9.7, Neutrophils (%) (Auto) 71.5, Lymphocytes (%) (Auto) 13.7, Monocytes (%) (Auto) 8.9, Eosinophils (%) (Auto) 5.4, Basophils (%) (Auto) 0.4, Neutrophils # (Auto) 5.60, Lymphocytes # (Auto) 1.07, Monocytes # (Auto) 0.70, Eosinophils # (Auto) 0.42, Basophils # (Auto) 0.03 08/19/16 06:36 Test 08/19/16 06:36 White Blood Count 7.83 K/uL (4.8-10.8) Red Blood Count 3.20 M/uL (4.7-6.1) Hemoglobin 9.7 g/dL (14.0-18.0) Hematocrit 31.5 % (42-52) Mean Corpuscular Volume 98.4 fL (80-100) Mean Corpuscular Hemoglobin 30.3 pg (25-34) Mean Corpuscular Hemoglobin Concent 30.8 g/dl (32-36) Platelet Count 152 K/uL (130-400) Mean Platelet Volume 9.7 fL (7.4-10.4) Neutrophils (%) (Auto) 71.5 % Lymphocytes (%) (Auto) 13.7 % Monocytes (%) (Auto) 8.9 % Eosinophils (%) (Auto) 5.4 % Basophils (%) (Auto) 0.4 % Neutrophils # (Auto) 5.60 K/uL (1.4-6.5) Lymphocytes # (Auto) 1.07 K/uL (1.2-3.4) Monocytes # (Auto) 0.70 K/uL (0.11-0.59) Eosinophils # (Auto) 0.42 K/uL (0-0.5) Basophils # (Auto) 0.03 K/uL (0-0.2) RDW Standard Deviation 74.7 fL (36.4-46.3) RDW Coefficient of Variation 20.6 % (11.5-14.5) Immature Granulocyte % (Auto) 0.1 % Immature Granulocyte # (Auto) 0.01 K/uL (0.00-0.02) Anisocytosis PRESENT Prothrombin Time 12.4 SECONDS (9.0-12.0) Prothromb Time International Ratio 1.2 (0.9-1.1) Anion Gap 11.0 mmol/L (3-11) Est Creatinine Clear Calc Drug Dose 14.2 ml/min Estimated GFR () 10.9 Estimated GFR (Non- 9.4 BUN/Creatinine Ratio 4.9 (10-20) Calcium Level 9.4 mg/dl (8.5-10.1) Phosphorus Level 5.6 mg/dl (2.5-4.9) Magnesium Level 2.5 mg/dl (1.8-2.4) Total Bilirubin 1.0 mg/dl (0.2-1) Direct Bilirubin 0.4 mg/dl (0-0.2) Aspartate Amino Transf (AST/SGOT) 11 U/L (15-37) Alanine Aminotransferase (ALT/SGPT) 60 U/L (12-78) Alkaline Phosphatase 158 U/L (45-117) Total Protein 7.8 gm/dl (6.4-8.2) Albumin 3.4 gm/dl (3.4-5.0) Allergies Coded Allergies: Penicillins (Unverified Allergy, Severe, FACE SWELLS, 08/14/16) Amoxicillin (Verified Allergy, Unknown, ?, 05/15/16) Medications Current Inpatient Medications Medications (Trade) Dose Ordered Sig/Moises Route Start Time Stop Time Status Last Admin Dose Admin Heparin Sodium (Porcine) (Heparin Sq 5000 Unit/0.5ml) 5,000 unit Q12H SQ 08/14/16 21:00 09/13/16 20:59 08/18/16 20:52 5,000 UNIT Lorazepam (Ativan Inj) 0.5 mg Q4H PRN IV 08/14/16 10:15 09/13/16 10:14 Carvedilol (Coreg Tab) 50 mg BID PO 08/14/16 21:00 09/13/16 20:59 Future hold 08/18/16 20:49 50 MG Gabapentin (Neurontin Cap) 100 mg BID PO 08/15/16 10:00 09/14/16 09:59 08/18/16 20:49 100 MG Nortriptyline HCl (Pamelor Cap) 50 mg DAILY PRN PO 08/15/16 09:45 09/14/16 09:44 08/17/16 21:55 50 MG Sertraline HCl (Zoloft Tab) 50 mg DAILY PO 08/15/16 10:00 09/14/16 09:59 08/18/16 08:20 50 MG Lactobacillus Acidophilus (Lactinex Granules Pack) 1 gm TIDM PO 08/15/16 11:30 09/14/16 11:29 08/18/16 08:21 1 GM Pantoprazole Sodium (Protonix Tab) 40 mg QAM PO 08/15/16 10:00 09/14/16 09:59 08/18/16 09:22 40 MG Sevelamer HCl (Renagel Tab) 1,600 mg TIDM PO 08/16/16 08:00 09/15/16 07:59 08/18/16 16:34 1,600 MG Hydralazine HCl (HydrALAZINE INJ) 10 mg Q6H PRN IV. 08/16/16 16:30 09/13/16 10:29 Ondansetron HCl (Zofran Inj) 4 mg Q4H PRN IV 08/17/16 00:00 09/16/16 00:00 Levothyroxine Sodium (Synthroid Tab) 50 mcg DAILYBB PO 08/17/16 06:30 09/14/16 05:59 08/19/16 06:42 50 MCG Lisinopril (Zestril Tab) 20 mg QAM PO 08/18/16 09:00 09/17/16 08:59 08/18/16 09:22 20 MG Warfarin Sodium (Coumadin Tab) 5 mg DAILY@16 PO 08/18/16 16:00 09/17/16 15:59 08/18/16 16:36 5 MG Oxycodone HCl (Roxicodone Immediate Rel Tab) 10 mg Q4H PRN PO 08/18/16 14:00 09/01/16 13:59 08/19/16 06:41 10 MG Epoetin [place] (Procrit Inj) 4,000 units TODAY@0800 IV 08/19/16 08:00 08/19/16 16:00 08/19/16 09:10 4,000 UNITS Doxycycline Hyclate (Vibramycin Cap) 100 mg BID PO 08/18/16 21:00 08/25/16 20:59 08/18/16 20:49 100 MG Triamcinolone Acetonide (Nasacort Allergy 24hr) 2 sprays DAILY MERCEDEZ 08/18/16 18:30 09/17/16 18:29 08/18/16 20:03 2 SPRAYS Sodium Chloride ([place] Nasal [place]) 2 sprays Q1H PRN NA 08/18/16 18:30 09/17/16 18:29 Impression (1) Cardiopulmonary arrest with successful resuscitation (2) Hyperkalemia (3) ESRD on hemodialysis (4) Hypertension Mr. Clay was admitted to the hospital following a syncopal event at home. He had missed his scheduled dialysis treatment and presented with a wide complex rhythm due to hyperkalemia. He was also diagnosed with a right upper extremity DVT (basilic vein and cephalic vein). He was previously treated in August for axillary and basilic vein DVTs with Coumadin x 3 months. PMH - Membranous GN, failed DDRT, ESRD on HD TTS ([facility] - Dr. Palma), Type A Aortic Dissection, CABG x 1 with L Saphenous [place], RUE DVT due to PICC Line (April 2016), LLE compartment syndrome s/p fasciotomy, steroid-Induced DM and HTN. Recommendations ESRD: -- currently getting dialysis as his regular schedule, for 4 hours, tolerating dialysis well, blood pressure stable. --avoid IV fluid --Continue on renal diet, Nephrocaps daily HYPERKALEMIA: -- Good clearance with dialysis -- K restricted diet HYPERTENSION: -- Improving with UF -- Continue HECTOR ANEMIA: -- Epogen w/ HD CKD/MBD: -- Sevelamer QAC DVT: --on Coumadin.
[2016-08-19] MEDS: DOXYCYCLINE HYCLATE 100 MG CAP PO SCH ×2 (12:03→21:37)
[2016-08-19] MEDS: SERTRALINE HCL 50 MG TAB PO SCH (12:04)
--- NOTE | 2016-08-19 12:39 | Orthopedic Progress Note ---
Orthopedic Progress Note Date of Service Aug 19, 2016. Subjective Denies: complaints, chest pain, SOB, nausea / vomiting, light headedness Additional Notes: Pain RUE stable and improved. Using a K Pad for comfort today. No fevers or chills reported. Objective N/V intact, capillary refill less than 2 sec., A&O x3 R UE streaking and redness medial forearm improved compared to yesterday. R UE DNVSI. Full AROM/PROM R UE. Pulses symmetric B UE. Date Time Temp Pulse Resp B/P (MAP) Pulse Ox O2 Delivery O2 Flow Rate FiO2 08/19/16 11:25 36.5 87 138/68 (91) 08/19/16 11:15 89 120/63 08/19/16 11:00 93 125/60 08/19/16 10:45 86 125/57 08/19/16 10:30 94 121/59 08/19/16 10:15 82 114/59 08/19/16 10:00 76 118/64 08/19/16 09:45 84 115/65 08/19/16 09:30 97 118/59 08/19/16 09:16 93 120/63 08/19/16 09:15 93 120/63 08/19/16 09:00 93 119/58 08/19/16 08:45 79 128/69 08/19/16 08:30 88 119/81 08/19/16 08:15 81 127/74 08/19/16 08:00 90 136/76 08/19/16 07:57 Room Air 08/19/16 07:45 94 133/77 08/19/16 07:40 36.4 87 139/90 (106) 08/19/16 07:20 37.0 96 18 141/83 (102) 97 Room Air 08/18/16 23:59 Room Air 08/18/16 20:45 96 135/76 (95) 08/18/16 20:00 Room Air 08/18/16 16:00 Room Air 08/18/16 15:07 36.7 98 18 132/71 (91) 97 Room Air 98 Laboratory Results 24 Hours: Test 08/19/16 06:36 White Blood Count 7.83 K/uL Red Blood Count 3.20 M/uL Hemoglobin 9.7 g/dL Hematocrit 31.5 % Mean Corpuscular Volume 98.4 fL Mean Corpuscular Hemoglobin 30.3 pg Mean Corpuscular Hemoglobin Concent 30.8 g/dl Platelet Count 152 K/uL Mean Platelet Volume 9.7 fL Neutrophils (%) (Auto) 71.5 % Lymphocytes (%) (Auto) 13.7 % Monocytes (%) (Auto) 8.9 % Eosinophils (%) (Auto) 5.4 % Basophils (%) (Auto) 0.4 % Neutrophils # (Auto) 5.60 K/uL Lymphocytes # (Auto) 1.07 K/uL Monocytes # (Auto) 0.70 K/uL Eosinophils # (Auto) 0.42 K/uL Basophils # (Auto) 0.03 K/uL Prothromb Time International Ratio 1.2 Prothrombin Time 12.4 SECONDS Assessment & Plan Assessment: R UE phlebitis/ resolving cellulitis per MRI, No evidence of abscess R forearm. S/P multiple IV sites R UE during Code Blue Multiple medical comorbidities Plan: Cont use of warm compress R UE Encourage AROM R hand/fingers and wrist to encourage lymphatic pumping and clearance. Continued observation-nonsurgical at this time
[2016-08-19] MEDS ORDERED: RANITIDINE HCL 150 MG TAB PO ONE (15:00)
[2016-08-19] MEDS: IBUPROFEN 800 MG TAB PO SCH ×2 (15:31→21:36)
[2016-08-19] MEDS: WARFARIN SOD 5 MG TAB PO SCH (15:37)
[2016-08-19] MEDS: LACTOBACILLUS ACIDOPHILUS (FLORANEX) TAB PO SCH (17:06)
--- NOTE | 2016-08-20 00:55 | Progress Note ---
Subjective Date of Service: late entry for visit Aug 19, 2016. Subjective Pt evaluation today including: conversation w/ patient, conversation w/ family , physical exam, chart review, lab review, review of studies (MRI right arm), conversation w/ contamination consultant (nephrology), review of inpatient medication list Pain: right arm - "no different" than yesterday PO Intake: normal no issues overnight except ongoing right forearm pain -- but swelling of arm continues to improve s/p hemodialysis today w/o incident Problem List Medical Problems: (1) Acute hyperkalemia Status: Acute (2) Acute renal failure Status: Acute (3) Back pain Status: Acute (4) Bilateral pneumonia Status: Acute (5) Cardiac arrhythmia Status: Acute (6) Creatinine elevation Status: Acute (7) Dehydration Status: Acute (8) ESR raised Status: Acute (9) Fluid overload Status: Acute (10) Hypertensive emergency Status: Acute (11) Intractable vomiting Status: Acute (12) Leukocytosis Status: Acute (13) Nausea vomiting and diarrhea Status: Acute (14) Prolonged QT interval Status: Acute (15) Supratherapeutic INR Status: Acute Social History Problems: (1) Status post kidney transplant Status: Acute Review of Systems Constitutional: No fever, No chills Respiratory: No shortness of breath Cardiac: No chest pain Abdomen: No pain Objective Vital Signs Date Time Temp Pulse Resp B/P (MAP) Pulse Ox O2 Delivery O2 Flow Rate FiO2 08/19/16 23:10 36.4 82 18 139/85 (103) 97 Room Air 08/19/16 18:08 37.0 96 20 132/76 (94) 95 Room Air 08/19/16 16:22 Room Air 08/19/16 15:25 36.9 95 18 132/72 (92) 95 Room Air 08/19/16 11:25 36.5 87 138/68 (91) 08/19/16 11:15 89 120/63 08/19/16 11:00 93 125/60 08/19/16 10:45 86 125/57 08/19/16 10:30 94 121/59 08/19/16 10:15 82 114/59 08/19/16 10:00 76 118/64 08/19/16 09:45 84 115/65 08/19/16 09:30 97 118/59 6/24/17 09:16 93 120/63 08/19/16 09:15 93 120/63 08/19/16 09:00 93 119/58 08/19/16 08:45 79 128/69 08/19/16 08:30 88 119/81 08/19/16 08:15 81 127/74 08/19/16 08:00 90 136/76 08/19/16 07:57 Room Air 08/19/16 07:45 94 133/77 08/19/16 07:40 36.4 87 139/90 (106) 08/19/16 07:20 37.0 96 18 141/83 (102) 97 Room Air Physical Exam General Appearance: no apparent distress ENT: pharynx normal Neck: + JVD Respiratory/Chest: lungs clear, no respiratory distress, no accessory muscle use Cardiovascular: regular rate, rhythm, no gallop, + systolic murmur (/ LSB) Abdomen: normal bowel sounds, non tender, soft, no organomegaly Extremities: no pedal edema, + pertinent finding (right arm - swelling again improved; minimal streaky erythema just distal to the elbow near the basilic vein; edema of forearm and hand is nearly resolved; patient able to actively move the arm) Neurologic/Psychiatric: alert, oriented x 3, + depressed affect Laboratory Results Last 24 Hours Test 08/19/16 06:36 08/19/16 18:05 White Blood Count 7.83 K/uL Red Blood Count 3.20 M/uL Hemoglobin 9.7 g/dL Hematocrit 31.5 % Mean Corpuscular Volume 98.4 fL Mean Corpuscular Hemoglobin 30.3 pg Mean Corpuscular Hemoglobin Concent 30.8 g/dl Platelet Count 152 K/uL Mean Platelet Volume 9.7 fL Neutrophils (%) (Auto) 71.5 % Lymphocytes (%) (Auto) 13.7 % Monocytes (%) (Auto) 8.9 % Eosinophils (%) (Auto) 5.4 % Basophils (%) (Auto) 0.4 % Neutrophils # (Auto) 5.60 K/uL Lymphocytes # (Auto) 1.07 K/uL Monocytes # (Auto) 0.70 K/uL Eosinophils # (Auto) 0.42 K/uL Basophils # (Auto) 0.03 K/uL RDW Standard Deviation 74.7 fL RDW Coefficient of Variation 20.6 % Immature Granulocyte % (Auto) 0.1 % Immature Granulocyte # (Auto) 0.01 K/uL Anisocytosis PRESENT Prothrombin Time 12.4 SECONDS Prothromb Time International Ratio 1.2 Sodium Level 132 mmol/L Potassium Level 5.0 mmol/L Chloride Level 98 mmol/L Carbon Dioxide Level 23 mmol/L Anion Gap 11.0 mmol/L Blood Urea Nitrogen 37 mg/dl Creatinine 7.50 mg/dl Est Creatinine Clear Calc Drug Dose 14.2 ml/min Estimated GFR () 10.9 Estimated GFR (Non- 9.4 BUN/Creatinine Ratio 4.9 Random Glucose 81 mg/dl Calcium Level 9.4 mg/dl Phosphorus Level 5.6 mg/dl Magnesium Level 2.5 mg/dl Total Bilirubin 1.0 mg/dl Direct Bilirubin 0.4 mg/dl Aspartate Amino Transf (AST/SGOT) 11 U/L Alanine Aminotransferase (ALT/SGPT) 60 U/L Alkaline Phosphatase 158 U/L Total Protein 7.8 gm/dl Albumin 3.4 gm/dl Bedside Glucose 141 mg/dl Assessment and Plan 21yo male with: 1. wide-complex tachycardia (possibly v-tach) 2nd to hyperkalemia - resolved. 2. severe hyperkalemia - due to noncompliance with HD in setting of ESRD - resolved. 3. constipation - add miralax + senna in AM. 4. acute hypoxic resp failure - resolved. 5. RUE DVT - RUE doppler from 05/05/2016 done at [facility] showed axillary and basilic vein DVTs. He took coumadin for 2-3 months by history and then was told to stop. RUE doppler this admission with basilic vein and cephalic vein DVTs. since the cephalic vein DVT is new I have recommended restarting coumadin. Cont coumadin 5mg and follow daily INR. 6. edema, right arm - improved but still with significant pain. Suspect extravasation of fluids/meds/calcium during his code at time of ER presentation. If in fact he had extravasation of calcium or sodium bicarbonate in the right arm the Rx is warm compresses and observation. The new DVT could be contributing to pain as well but doubt this is the sole player. Appreciate Dr. Blackburn's consultation. MRI w/ minimal cellulitis. Suspect most of his pain is due to phlebitis. Spoke with nephrology - they are ok with limited amount of NSAIDs. Motrin 800mg TID x 3 doses. Cont oxycodone prn. 7. left foot drop - Umer Wen consult after d/c. 8. ESRD on HD - HD today. Appreciate nephrology consultation. 9. abnormal LFTs - lfts in April 2016 based on [facility] records were NORMAL. Had outpatient u/s of liver/spleen in May showing enlarged liver/spleen. Etiology? Consider repeat imaging. Consider GI referral. 10. chronic systolic CHF, EF 40-45%, with element of mild cor pulmonale - echo report from [facility] obtained; this was done about 2 weeks ago. EF 40-45%, mild right ventricular dysfunction, severe TR. This is similar to echo done earlier this year at [facility]. Remains compensated. Cont BB, HECTOR. 11. HTN - improving; HECTOR and BB. 12. depression - zoloft; outpatient counseling. 13. h. flu sinusitis - doxy 100mg BID x 10 days. Today is day#2. mother updated today at bedside oob and ambulate home Sunday? Discharge planning: home
[2016-08-20] MEDS: LEVOTHYROXINE 50 MCG TAB PO SCH (06:34)
[2016-08-20] MEDS: OXYCODONE HCL IR 5 MG TAB (IMMEDIATE RELEASE) PO PRN ×2 (06:35→12:04)
[2016-08-20 07:26] LABS: HEMATOCRIT 31.6 % (42-52); MEAN CELL VOLUME 98.1 fL (80-100); MEAN CORPUSCULAR HEMOGLOBIN 31.7 pg (25-34); MEAN CORPUSCULAR HGB CONC 32.3 g/dl (32-36); MEAN PLATELET VOLUME 9.4 fL (7.4-10.4); PLATELET COUNT 155 K/uL (130-400); RED BLOOD COUNT 3.22 M/uL (4.7-6.1); WHITE BLOOD COUNT 5.37 K/uL (4.8-10.8)
[2016-08-20 07:31] VITALS: BP 151/88; PULSE 77; TEMP 36.5; O2SAT 92
[2016-08-20 07:41] LABS: INR 1.3 (0.9-1.1); PROTHROMBIN TIME (PATIENT) 13.7 SECONDS (9.0-12.0)
[2016-08-20] MEDS: IBUPROFEN 800 MG TAB PO SCH (08:43)
[2016-08-20] MEDS: HEPARIN SOD 5000 UNIT/0.5 ML CARP SQ SCH (08:44)
[2016-08-20] MEDS: PANTOprazole SOD 40 MG TAB PO SCH (08:45)
[2016-08-20] MEDS: CARVEDILOL 25 MG TAB PO SCH (08:46)
[2016-08-20] MEDS: SERTRALINE HCL 50 MG TAB PO SCH (08:46)
[2016-08-20] MEDS: LISINOPRIL 20 MG TAB PO SCH (08:46)
[2016-08-20] MEDS: SEVELAMER HYDROCH 800 MG TAB PO SCH ×2 (08:47→12:04)
[2016-08-20] MEDS: LACTOBACILLUS ACIDOPHILUS (FLORANEX) TAB PO SCH ×2 (08:47→12:04)
[2016-08-20] MEDS: DOXYCYCLINE HYCLATE 100 MG CAP PO SCH (08:49)
[2016-08-20] MEDS: TRIAMCINOLONE ACET NASAL SPRAY 10.8ML BTL NAE SCH (08:50)
[2016-08-20] MEDS ORDERED: POLYETHYLENE (MIRALAX) 17 GM PACK PO SCH (09:00)
[2016-08-20] MEDS ORDERED: SENNA 8.6 MG TAB PO SCH (09:00)
[2016-08-20] MEDS: GABAPENTIN 100 MG CAP PO SCH (09:35)
--- NOTE | 2016-08-20 10:18 | Orthopedic Progress Note ---
Orthopedic Progress Note Date of Service Aug 20, 2016. Subjective Reports: feeling well, pain controlled w PO medications, Denies: complaints Objective N/V intact, capillary refill less than 2 sec., A&O x3 RUE: no erythema noted today. No fluctuance. Full ROM of the right elbow. Date Time Temp Pulse Resp B/P (MAP) Pulse Ox O2 Delivery O2 Flow Rate FiO2 08/20/16 07:31 36.5 77 18 151/88 (109) 92 Room Air 08/20/16 00:00 Room Air 08/19/16 23:10 36.4 82 18 139/85 (103) 97 Room Air 08/19/16 20:00 Room Air 08/19/16 18:08 37.0 96 20 132/76 (94) 95 Room Air 08/19/16 16:22 Room Air 08/19/16 15:25 36.9 95 18 132/72 (92) 95 Room Air 08/19/16 11:25 36.5 87 138/68 (91) 08/19/16 11:15 89 120/63 08/19/16 11:00 93 125/60 08/19/16 10:45 86 125/57 08/19/16 10:30 94 121/59 Laboratory Results 24 Hours: Test 08/20/16 07:00 Hematocrit 31.6 % Hemoglobin 10.2 g/dL Prothromb Time International Ratio 1.3 Prothrombin Time 13.7 SECONDS Assessment & Plan Assessment: R UE phlebitis/ resolving cellulitis per MRI, No evidence of abscess R forearm. S/P multiple IV sites R UE during Code Blue Multiple medical comorbidities Plan: Cont use of warm compress R UE Encourage AROM R hand/fingers and wrist to encourage lymphatic pumping and clearance. Continued observation-nonsurgical at this time Ortho to sign off. May follow up prn. Patient was seen and examined by Dr Blackburn. Agree with plan as documented above. Lilli Blackburn DO
--- NOTE | 2016-08-20 11:27 | Nephrology Progress Note ---
Nephrology Progress Note Date of Service Aug 20, 2016. Chief Complaint Follow-up for end-stage renal disease on hemodialysis. Hamilton Valle Was seen and examined in his room this morning. He continues to have some pain in his right upper extremity IV infiltration site, seems slightly improved. had dialysis yesterday, tolerated well. Currently blood pressure, volume status and electrolyte acceptable. Review of Systems A complete review of systems was performed. Pertinent positives are noted above. All other systems are negative. Vital Signs Last 8 Hrs Date Time Temp Pulse Resp B/P (MAP) Pulse Ox O2 Delivery O2 Flow Rate FiO2 08/20/16 08:22 Room Air 08/20/16 07:31 36.5 77 18 151/88 (109) 92 Room Air Last Recorded Weight Weight (Kilograms): 59.500 Physical Exam GENERAL: Young male , AAA x 3, sleepy, not in any distress. NECK: Supple, no JVD. RESPIRATORY: Normal breathing efforts, no accessory muscle use, clear to auscultation bilaterally, no wheezes or rales. CARDIOVASCULAR: S1, S2 normal, rate rhythm regular. EXTREMITY: No lower extremity edema NEURO: speech fluent. PSYCHIATRY: Normal mood and judgment Family History Cancer Hypertension Negative for CKD/ESRD Social History Smoking Status: Never smoker Smokeless Tobacco Use: No Alcohol Use: none Drug Use: none Marital Status: single 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 Lives with mother Laboratory Results Past 24 Hours 08/20/16 07:00 Test 08/19/16 18:05 08/20/16 07:00 Bedside Glucose 141 mg/dl (70-99) Red Blood Count 3.22 M/uL (4.7-6.1) Mean Corpuscular Volume 98.1 fL (80-100) Mean Corpuscular Hemoglobin 31.7 pg (25-34) Mean Corpuscular Hemoglobin Concent 32.3 g/dl (32-36) RDW Standard Deviation 74.5 fL (36.4-46.3) RDW Coefficient of Variation 20.4 % (11.5-14.5) Mean Platelet Volume 9.4 fL (7.4-10.4) Prothrombin Time 13.7 SECONDS (9.0-12.0) Prothromb Time International Ratio 1.3 (0.9-1.1) Allergies Coded Allergies: Penicillins (Unverified Allergy, Severe, FACE SWELLS, 08/14/16) Amoxicillin (Verified Allergy, Unknown, ?, 05/15/16) Medications Current Inpatient Medications Medications (Trade) Dose Ordered Sig/Moises Route Start Time Stop Time Status Last Admin Dose Admin Heparin Sodium (Porcine) (Heparin Sq 5000 Unit/0.5ml) 5,000 unit Q12H SQ 08/14/16 21:00 09/13/16 20:59 08/18/16 20:52 5,000 UNIT Lorazepam (Ativan Inj) 0.5 mg Q4H PRN IV 08/14/16 10:15 09/13/16 10:14 Carvedilol (Coreg Tab) 50 mg BID PO 08/14/16 21:00 09/13/16 20:59 Future hold 08/20/16 08:46 50 MG Gabapentin (Neurontin Cap) 100 mg BID PO 08/15/16 10:00 09/14/16 09:59 08/20/16 09:35 100 MG Nortriptyline HCl (Pamelor Cap) 50 mg DAILY PRN PO 08/15/16 09:45 09/14/16 09:44 08/17/16 21:55 50 MG Sertraline HCl (Zoloft Tab) 50 mg DAILY PO 08/15/16 10:00 09/14/16 09:59 08/20/16 08:46 50 MG Pantoprazole Sodium (Protonix Tab) 40 mg QAM PO 08/15/16 10:00 09/14/16 09:59 08/20/16 08:45 40 MG Sevelamer HCl (Renagel Tab) 1,600 mg TIDM PO 08/16/16 08:00 09/15/16 07:59 08/20/16 08:47 1,600 MG Hydralazine HCl (HydrALAZINE INJ) 10 mg Q6H PRN IV. 08/16/16 16:30 09/13/16 10:29 Ondansetron HCl (Zofran Inj) 4 mg Q4H PRN IV 08/17/16 00:00 09/16/16 00:00 Levothyroxine Sodium (Synthroid Tab) 50 mcg DAILYBB PO 08/17/16 06:30 09/14/16 05:59 08/20/16 06:34 50 MCG Lisinopril (Zestril Tab) 20 mg QAM PO 08/18/16 09:00 09/17/16 08:59 08/20/16 08:46 20 MG Warfarin Sodium (Coumadin Tab) 5 mg DAILY@16 PO 08/18/16 16:00 09/17/16 15:59 08/19/16 15:37 5 MG Oxycodone HCl (Roxicodone Immediate Rel Tab) 10 mg Q4H PRN PO 08/18/16 14:00 09/01/16 13:59 08/20/16 06:35 10 MG Doxycycline Hyclate (Vibramycin Cap) 100 mg BID PO 08/18/16 21:00 08/25/16 20:59 08/20/16 08:49 100 MG Triamcinolone Acetonide (Nasacort Allergy 24hr) 2 sprays DAILY MERCEDEZ 08/18/16 18:30 09/17/16 18:29 08/20/16 08:50 2 SPRAYS Sodium Chloride ([place] Nasal [place]) 2 sprays Q1H PRN NA 08/18/16 18:30 09/17/16 18:29 Lactobacillus Acidophilus (Floranex Tab) 1 tab TIDM PO 08/19/16 17:00 09/18/16 16:59 08/20/16 08:47 1 TAB Senna (Senokot Tab) 17.2 mg QAM PO 08/20/16 09:00 09/19/16 08:59 08/20/16 08:45 17.2 MG Polyethylene (Miralax Powder Packet) 17 gm DAILY PO 08/20/16 09:00 09/19/16 08:59 Impression (1) Cardiopulmonary arrest with successful resuscitation (2) Hyperkalemia (3) ESRD on hemodialysis (4) Hypertension Mr. Clay was admitted to the hospital following a syncopal event at home. He had missed his scheduled dialysis treatment and presented with a wide complex rhythm due to hyperkalemia. He was also diagnosed with a right upper extremity DVT (basilic vein and cephalic vein). He was previously treated in August for axillary and basilic vein DVTs with Coumadin x 3 months. PMH - Membranous GN, failed DDRT, ESRD on HD TTS ([facility] - Dr. Palma), Type A Aortic Dissection, CABG x 1 with L Saphenous [place], RUE DVT due to PICC Line (April 2016), LLE compartment syndrome s/p fasciotomy, steroid-Induced DM and HTN. Recommendations --had dialysis yesterday, currently blood pressure volume status stable. Next dialysis Sunday. Advise patient to follow low potassium diet --avoid IV fluid --Continue on renal diet, Nephrocaps daily -- Improving with UF -- Continue HECTOR -- Epogen w/ HD -- Sevelamer QAC --on Coumadin. -- Okay to use NSAID as needed
--- NOTE | 2016-08-20 11:43 | Orthopedic Progress Note ---
Orthopedic Progress Note Date of Service Aug 20, 2016. Subjective Reports: feeling well, Denies: chest pain, SOB, nausea / vomiting, light headedness Additional Notes: R forearm pain improved after continued rest, warm compress and dose of antiinflammatory. Objective N/V intact, capillary refill less than 2 sec., A&O x3 R forearm soft, Supple, limited ropiness R forearm at Basilic vein, DNVSI Date Time Temp Pulse Resp B/P (MAP) Pulse Ox O2 Delivery O2 Flow Rate FiO2 08/20/16 08:22 Room Air 08/20/16 07:31 36.5 77 18 151/88 (109) 92 Room Air 08/20/16 00:00 Room Air 08/19/16 23:10 36.4 82 18 139/85 (103) 97 Room Air 08/19/16 20:00 Room Air 08/19/16 18:08 37.0 96 20 132/76 (94) 95 Room Air 08/19/16 16:22 Room Air 08/19/16 15:25 36.9 95 18 132/72 (92) 95 Room Air Laboratory Results 24 Hours: Test 08/20/16 07:00 Hematocrit 31.6 % Hemoglobin 10.2 g/dL Prothromb Time International Ratio 1.3 Prothrombin Time 13.7 SECONDS Assessment & Plan Assessment: R UE phlebitis/ resolving cellulitis-marked improvement over past 24 hrs -per MRI, No evidence of abscess R forearm. S/P multiple IV sites R UE during Code Blue Multiple medical comorbidities Plan: Cont use of warm compress R UE Encourage AROM R hand/fingers and wrist to encourage lymphatic pumping and clearance. Continued observation-nonsurgical at this time Ortho to sign off. May follow up prn.
[2016-08-20] MEDS ORDERED: TRIA1SPR4 NAE (15:19)
[2016-08-20] MEDS ORDERED: RXC5 PO (15:19)
[2016-08-20] MEDS ORDERED: SALI0.6510 (15:19)
[2016-08-20] MEDS ORDERED: SNK PO (15:19)
[2016-08-20] MEDS ORDERED: CMD5 PO (15:19)
[2016-08-20] MEDS ORDERED: LEVO50TA PO (15:19)
[2016-08-20] MEDS ORDERED: DXY100 PO (15:19)
[2016-08-20] MEDS: WARFARIN SOD 5 MG TAB PO SCH (15:34)
[2016-08-20 15:37] VITALS: BP 152/84; PULSE 76; TEMP 36.3; O2SAT 98
--- NOTE | 2016-08-20 15:58 | Discharge Instructions ---
Discharge Instructions Date of Service Aug 20, 2016. Admission Reason for Admission: Hyperkalemia (high potassium level) Discharge Discharge Diagnosis / Problem: (1) Hyperkalemia VTE Date & Time Date of VTE Diagnosis: Aug 14, 2016 Time of VTE Diagnosis: 17:00 Discharge Goals Goal(s): Decrease discomfort, Improve function, Increase independence, Improve disease control, Learn about illness, Diagnostic testing, Therapeutic intervention Activity Recommendations Activity Limitations: as noted below Lifting Limitations: no more than 10 pounds (with the right hand/arm for at least 1 week) . Instructions / Follow-Up Instructions / Follow-Up From Dr. Mancilla: 1. Coumadin (warfarin) instructions - * Warfarin is a medicine prescribed to prevent blood clots * Warfarin will thin your blood and help prevent new clots * Take your medications exactly as directed * Never skip a dose. Never take a double dose. If you miss a dose, take it as soon as you remember * It is important for your doctor to monitor your prothrombin time (PT). This is a lab test. Please have your INR checked on 08/21/2016. You will likely need your INR checked multiple times this week. * Keep your appointment for lab tests * It is best to take your warfarin every afternoon; start your warfarin TOMORROW on 08/21/16 Risk of Adverse Drug Reactions and Interactions: * Warfarin increases your risk of bleeding * The food you eat and other medications you take can affect how Warfarin works in your body * Ask your doctor about daily aspirin therapy * It is very important to talk with your doctor about all of the other medicines , antibiotics, vitamins or herbal products that you are taking * All of your medication must be approved by your doctor, including new medicines, as well as medicines you have taken before you started taking Warfarin Diet: * In order for Warfarin to work properly, it is important to keep your intake of Vitamin K as consistent as possible * You should avoid any sudden change in Vitamin K intake * Report any significant changes in your diet or weight to your doctor Call your Primary Care doctor if you experience any of the following: * Swelling or Pain in your leg * Sudden, continuous pain deep in a muscle * Pain that worsens when you are active or when you stand still for a long time * Chest Pain * Sudden Shortness of Breath * Rapid or pounding heart beat * Fainting * Dizziness * Cough with blood or bloody sputum * Sweating more than normal * Bruises * Heavy or uncontrolled bleeding * Blood in your urine, stool or vomit * Black or tarry stools Caring for Your Self at Home: * Avoid sitting, standing or lying down for long periods without moving your legs and feet * When traveling by car, stop to get out and move around at least once every 3 hours * On long airplane, train or bus rides, get up and move around when possible * If you can't get up, wiggle your toes and tighten your calves to keep your blood moving * Do not use a traditional razor blade to shave; instead, use an electric razor 2. Possible sinus infection - * take doxycycline 100mg twice daily for 8 days * this medication can cause a rash if you go in the sun; please use sunscreen and cover up * it can also cause stomach upset; take with food * may use nasacort - 2 sprays up each nostril once daily * may use saline nasal spray every hour as needed for congestion * may use [id number] mucinex 600mg up to twice a day as needed for congestion * if you need follow-up with an ENT (ears/nose/throat) doctor you can contact - * Dr. Lamonte Titus - ENT - [address], [address], [place] [address] 3. Left leg foot drop - * If desired you may contact Umer Wen - orthotics - who may be able to help your left foot drop * Office address: [facility] [address], [address] [place] [id number] 4. Right arm pain due to phlebitis/blood clots/leakage from IV - * continue warm compresses 4-5 times each day * continue oxycodone 5mg every 4 hours as needed for pain * do NOT drive while taking oxycodone and do not drink alcohol * the oxycodone will make you constipated - be sure to take a stool softener * your arm pain will gradually resolve over the next week * see the coumadin instructions above 5. Hypothyroidism - * please increase your synthroid to 50mcg once daily * have your thyroid level repeated in 6 weeks to ensure you are on the right amount of medication 6. Depression - * please consider seeing Alvaro at the counseling center * see the handout given 7. Report for dialysis tomorrow morning as scheduled. 8. Please see your family doctor THIS WEEK for hospital follow-up and to arrange any referrals for the above specialists. 9. Return to [facility] if: * your arm pain worsens or is not being controlled by your pain medications * you have fever over 100.4 degrees * you have shortness of breath, chest pain, abdominal pain, etc Current Hospital Diet Patient's current hospital diet: Renal Diet Discharge Diet Recommended Diet: Renal Diet Fluid Restriction: 1500 ml (6 cups) Procedures Procedures Performed: 1. MRI of the right forearm - no evidence of abscess or fluid collection. 2. Ultrasound of right arm showing 2 DVTs. 3. Intubation and mechanical ventilation. 4. CAT scan of the chest/abdomen/pelvis - no evidence of aortic dissection. Pending Studies Studies pending at discharge: no Laboratory Results Hemoglobin A1c Test 08/15/16 02:05 Range/Units Estimated Average Glucose 114 mg/dl Hemoglobin A1c 5.6 4.5-5.6 % Lipid Panel Test 08/14/16 10:58 Range/Units Triglycerides Level 66 0-150 mg/dl Cholesterol Level 114 0-200 mg/dl HDL Cholesterol 36 mg/dl Cholesterol/HDL Ratio 3.2 LDL Cholesterol, Calculated 65 mg/dl Medical Emergencies . Who to Call and When: Medical Emergencies: If at any time you feel your situation is an emergency, please call 911 immediately. . Non-Emergent Contact Non-Emergency issues call your: [employer] Call Non-Emergent contact if: temperature is above 100.5, your pain is not controlled, your pain is worsening, your pain is unusual for you, your pain is concerning you, you have any medication questions Right arm pain worsens. . . "Provider Documentation" section prepared by Familia Mancilla. . VTE Core Measure Inpt VTE Proph given/why not?: Unfractionated heparin SQ Reason no anticoag overlap I/P: Contraindicated Reason no anticoag overlap @DC: Contraindicated [place] Drug Monitoring Program Search Results: patient reviewed within database, no issues identified
--- NOTE | 2016-08-21 12:18 | Discharge Summary ---
Discharge Summary Date of Service Aug 21, 2016. Discharge Summary Admission Date: Aug 14, 2016 at 09:21 Discharge Date: Aug 20, 2016 Discharge Disposition: Home Principal Diagnosis: hyperkalemia leading to idioventricular rhythm and cardiac arrest Problems/Secondary Diagnoses: 1. acute/chronic biventricular heart failure - EF 40-45% with mild right ventricular dysfunction 2. ESRD on HD 3. acute right arm basilic and cephalic vein DVTs 4. probable IV infiltration of right arm 5. depression 6. history of aortic dissection s/p repair 02/2016 [facility] 7. h/o membranous glomerulonephritis s/p failed renal transplant 8. acute hypoxic respiratory failure requiring intubation/mech ventilation 9. HTN 10. H. flu sinusitis +/- pneumonia 11. anemia 2nd to CKD 12. h/o steroid-induced T2DM - resolved 13. h/o compartment syndrome, left leg, requiring decompression 14. neuropathy and foot drop, left leg 15. h/o prior RUE DVT - 04/2016 16. severe tricuspid regurgitation 17. hypothyroidism 18. abnormal LFTs - uncertain etiology - follow-up needed Procedures: 1. right femoral CVC 2. right femoral arterial line 3. RUE venous duplex study - IMPRESSION: 1. Nonocclusive thrombus within the right basilic and cephalic veins 2. Right upper extremity edema 4. MRI right arm - IMPRESSION: 1. No acute bony abnormality is identified in the right forearm. 2. Diffuse subcutaneous soft tissue edema and trace subcutaneous fluid is identified and consistent with the reported clinical history of cellulitis. 3. No organized fluid collection is seen to indicate abscess as clinically queried. 5. CT chest dissection protocol - IMPRESSION: 1. The endotracheal tube terminates in the right mainstem bronchus. Repositioning is indicated. 2. Postoperative change is identified in the ascending thoracic aorta. No aneurysm or dissection is seen on today's examination. 3. Cardiomegaly with evidence of congestive failure and interstitial edema. 4. Small to moderate right and small left pleural effusions with associated consolidation. This likely represents atelectasis. Clinical correlation will be required. Superimposed pneumonia would be impossible to exclude by imaging. 6. CT abd/pelvis angiography - IMPRESSION: 1. No evidence for an aortic dissection. 2. Small amount of ascites and small bilateral pleural effusions. 3. Patchy bibasilar airspace opacities which are nonspecific. This could represent atelectasis or pneumonia. 4. Pulmonary edema. 5. Mild peripancreatic edema. This is likely due to the patient's diffuse edematous state. However, recommend correlation with pancreatic enzymes to exclude the less likely possibility of acute pancreatitis. 6. Nasogastric tube terminates in the stomach. 7. No bowel wall thickening or obstruction. 8. Right lower quadrant transplant kidney. No hydronephrosis. 7. intubation with mechanical ventilation Consultations: 1. critical care - Cabrera Suazo DO 2. nephrology - Jt King MD 3. orthopedics - Vidal Blackburn DO Medication Reconciliation New Medications: Doxycycline Hyclate (Doxycycline Hyclate) 100 Mg Cap 100 MG PO BID for 8 Days, #16 CAP 0 Refills Oxycodone HCl (Oxycodone HCl) 5 Mg Tab 5 MG PO Q4H PRN for Pain, #20 TAB 0 Refills Saline (Nichols Nasal Vidalia) 0.65 % Spr 2 SPRAYS NA Q1H PRN for nasal congestion , #1 0 Refills Senna (Senna Lax) 8.6 Mg Tab 17.2 MG PO QAM, #60 TAB 0 Refills Triamcinolone Acetonide (Nasal (Nasacort Allergy 24Hr) 55 Mcg/Act Spr 2 SPRAYS MERCEDEZ DAILY, #1 INHALER 1 Refill Warfarin Sod (Coumadin) 5 Mg Tab 5 MG PO DAILY, #30 TAB 2 Refills Changed Medications: Levothyroxine Sodium (Synthroid) 50 Mcg Tab 1 TAB PO QAM for 30 Days, #30 TAB 5 Refills (Changed from: Levothyroxine Sodium (Synthroid) 25 Mcg Tab 25 Mcg PO QAM) Continued Medications: Ascorbic Acid (Vitamin C) Unknown Strength Tab 1 TAB PO DAILY Carvedilol (Coreg) 25 Mg Tab 50 MG PO BID 2 TABLET DOSE Gabapentin (Neurontin) 100 Mg Cap 100 MG PO BID Lisinopril (Lisinopril) 20 Mg Tab 20 MG PO DAILY Nortriptyline (Pamelor) 50 Mg Cap 50 MG PO DAILY PRN for UNDECIDED Sertraline (Zoloft) 50 Mg Tab 50 MG PO DAILY Sevelamer Carbonate (Renvela) 800 Mg Tab 1600 MG PO TIDM Sevelamer Carbonate (Renvela) 800 Mg Tab 800 MG PO DAILY WITH SNACKS Discharge Exam Physical Exam: General Appearance: no apparent distress ENT: pharynx normal Neck: + JVD Respiratory/Chest: no respiratory distress, no accessory muscle use, + rales (minimal - bases) Cardiovascular: regular rate, rhythm, no gallop, normal peripheral pulses, + systolic murmur (2-3/6 LLSB) Abdomen / GI: normal bowel sounds, non tender, soft, + splenomegaly Extremities: no pedal edema, + pertinent finding (right elbow range of motion is normal - passive and active ) Neurologic/Psychiatric: alert, oriented x 3, + depressed affect Skin: + pertinent finding (LUE AF fistula with +thrill and bruit; left leg with multiple linear scars; right arm - just distal to the right elbow, over the expected location of the basilic vein, there is swelling/warmth/erythema of the vein; mild tenderness to palpation; no overlying cellulitis; right cephalic vein course also palpable and slightly swollen but not as tender; the rest of the forearm compartment is normal; the right hand is normal ) Hospital Course HISTORY OF PRESENT ILLNESS: The patient is a 21-year-old pleasant male with past medical history of membranous glomerulonephritis and renal failure since he was 16 years old. The patient unfortunately failed multiple renal transplants in the past and is now on hemodialysis via LUE AF fistula. He normally dialyzes in [place] on Tuesdays//Saturdays. He also has a history of prior admission in 01/2016 when he came with severe pleuritic pain. 2D echo initially revealed small pericardial effusion but repeat echo few days later showed increased pericardial effusion and also increased contour of proximal ascending aorta and a concern of possible type A aortic dissection. The patient was flew to [facility] under the care of Dr. Gary Morgan. Since then, the patient was not admitted to our facility, but as per discussion with his mother and staff, he was doing well until Sunday he missed dialysis because he slept through the morning and yesterday he told his mom that he was not feeling well but he did not elaborate on what symptoms did he have. This morning at 6:00 a.m. he called his mom and he was having diarrhea and vomiting. When his mom came to help him to come to the first floor, he sat in a chair. For a while, he was diaphoretic and pale. He continued to have vomiting. His mother told him "I'll take you to the hospital." When he stood up to go to the hospital, he collapsed. He did not completely lose consciousness, but he was very lethargic, so she called 911. When the patient was brought here to the ED, he was found to have severe electrolyte imbalance including potassium level of 9.4 and the patient went into ventricular arrhythmia while in the ED. The patient received multiple rounds of calcium, bicarbonate, insulin, and D50 as well. He was intubated and gold prospector was consulted for emergent renal dialysis. HOSPITAL COURSE: The patient's idioventricular / v-tach rhythm resolved after emergent use of IV calcium, bicarbonate, and insulin with D50. In the midst of his critical status he was intubated and mechanically ventilated and admitted to the ICU. Upon admission to the ICU he received emergency hemodialysis. The patient's hyperkalemia was secondary to noncompliance with his outpatient hemodialysis schedule. On the evening of his first hospital day he was extubated from the ventilator. His central line/arterial line were removed the following AM on hospital day #2. After extubation from the ventilator the patient and staff noted that his right arm was markedly swollen. RUE venous duplex study demonstrated DVT of the basilic and cephalic veins. There was also concern that he may have had IV infiltration during his cardiac arrest which was also contributing to his markedly swollen arm. Records were obtained from [facility] and his 05/05/2016 venous doppler of the same area showed axillary/basilic DVT. Thus, it was felt that some of the clot seen on this admission's doppler was indeed acute. He was ultimately started on coumadin 5mg daily with first dose on 08/18/2016. Ideally he will need a repeat INR on 08/21/16. INR on 08/20/16 was 1.3. He had considerable pain of the right arm and thus he was seen in consult by orthopedics. MRI was obtained of the right arm and fortunately no other pathology was found. There may have been a small component of cellulitis. No compartment syndrome was seen at any time. Other issues addressed while here: 1. HTN - he remains on high-dose coreg and lisinopril. BPs were acceptable at the end of his stay. 2. depression - we discussed outpatient counseling services and information for such was given to the patient & his mother. This appears to be severe and likely playing a great role in his noncompliance. 3. ESRD - he received multiple rounds of hemodialysis while here. He will resume his normal outpatient //Sun schedule after discharge. 4. abnormal LFTs - lfts in April 2016 based on [facility] records were NORMAL. Records also showed he haad outpatient u/s of his liver/spleen in May 2016 showing enlarged liver/spleen. The exact etiology of this is not known. His LFTs did improve while here but never normalized. He will need outpatient follow-up for this and potentially GI consultation. 5. acute/chronic systolic CHF, EF 40-45%, with element of mild chronic cor pulmonale - echo report from [facility] obtained; this was done about 2 weeks prior to this hospital stay. EF 40-45%, mild right ventricular dysfunction, severe TR. He will continue on beta delma and HECTOR. He received hemodialysis for his volume overloaded state. 6. h. flu sinusitis +/- pneumonia - sputum culture grew h. flu. He will complete a course of doxycycline 100mg BID x 10 days. There was some question of bibasilar pneumonia on imaging as well. He reported improvement in cough/congestion over the course of his stay. The patient requested information for ENT services and this was given on day of discharge. Total Time Spent: Greater than 30 minutes This includes examination of the patient, discharge planning, medication reconciliation, and communication with other providers. Discharge Instructions Please refer to the electronic Patient Visit Report (Discharge Instructions) for additional information. Follow-Up 1. report to the dialysis center on 08/22/16, for HD as scheduled 2. see PCP for INR checks and coordination of sub-specialty referrals Additional Copies To Chong Blackburn D.O.; Jt King M.D.; [facility] [place]; Sidney Castro M.D.; GAGE PEPE D.O.
== END 2016-08-20 16:20 | disposition home or self-care (01) | DRG 308 ==
LOC: EDBD 08:30 → C.EDB 08:32 → C.MSICU 09:21 → UNDOADMIN 09:21 → EDBEDREQ 09:37 → ENRESERV 09:38 → C.MS2W 08-16 15:08
PROVIDERS: ADMIT Internal Medicine; ATTEND Internal Medicine
PROC: 0BH17EZ Insertion of Endotracheal Airway into Trachea, Via Natural or Artificial Opening (ICD-10-PCS; principal; 2016-08-14)
PROC: 5A1945Z Respiratory Ventilation, 24-96 Consecutive Hours (ICD-10-PCS; principal; 2016-08-14)
PROC: 06HM33Z Insertion of Infusion Device into Right Femoral Vein, Percutaneous Approach (ICD-10-PCS; 2016-08-15)
DX: I47.2 Ventricular tachycardia (principal); N18.6 End stage renal disease; J96.01 Acute respiratory failure with hypoxia; I50.23 Acute on chronic systolic (congestive) heart failure; G93.41 Metabolic encephalopathy; J11.00 Influenza due to unidentified influenza virus with unspecified type of pneumonia; I13.2 Hypertensive heart and chronic kidney disease with heart failure and with stage 5 chronic kidney disease, or end stage renal disease; N17.9 Acute kidney failure, unspecified; N05.2 Unspecified nephritic syndrome with diffuse membranous glomerulonephritis; L03.113 Cellulitis of right upper limb; T86.12 Kidney transplant failure; I82.601 Acute embolism and thrombosis of unspecified veins of right upper extremity; E11.22 Type 2 diabetes mellitus with diabetic chronic kidney disease; E11.65 Type 2 diabetes mellitus with hyperglycemia; F32.9 Major depressive disorder, single episode, unspecified; Z99.2 Dependence on renal dialysis; Z91.15 Patient's noncompliance with renal dialysis; E87.5 Hyperkalemia; E03.9 Hypothyroidism, unspecified; D63.8 Anemia in other chronic diseases classified elsewhere; R29.810 Facial weakness; I46.9 Cardiac arrest, cause unspecified; I07.1 Rheumatic tricuspid insufficiency; Y95 Nosocomial condition; M21.372 Foot drop, left foot; Z78.1 Physical restraint status; Z79.899 Other long term (current) drug therapy; Z88.0 Allergy status to penicillin; Z80.9 Family history of malignant neoplasm, unspecified; Z82.49 Family history of ischemic heart disease and other diseases of the circulatory system; Z95.1 Presence of aortocoronary bypass graft

== ENCOUNTER 2016-12-08 18:06 | Emergency (ER) | payer OTHER ==
[~2016-12-08] VITALS: Ht 170.2 cm; Wt 64.0 kg
[~2016-12-08 18:06] MED LIST changes: +ASCA500 PO; -CALCIUM CHLORIDE 10% 10 ML SYR IV ONE; +CMD5 PO; +DXY100 PO; +GABA-112 PO; +LEVO50TA PO; -LISI40TA PO; +LSN20 PO; +NORT50CA PO; +RXC5 PO; +SALI0.6510; +SERT50TA PO; +SEVE800T7 PO; +SNK PO; -SODIUM BICARB 8.4% INJ 50 MEQ/50 ML SYR IV ONE; -SODIUM CHLORIDE 0.9% 10ML FLUSH IV ONE; -TEMA15CA4 PO; -TRAM-10 PO; +TRIA1SPR4 NAE; -WARF-284 PO
--- NOTE | 2016-12-08 18:31 | EMERGENCY ROOM VISIT NOTE ---
History Report prepared by Christyibcintia: Dai Gardner Under the Supervision of: Dr. Edgard Flower M.D. First contact with patient: 18:18 Chief Complaint: ABNORMAL DIAGNOSTIC TESTING Stated Complaint: DR DID MRI, SAID HE HAS FLUID IN LUNGS History of Present Illness The patient is a 21 year old male who presents to the Emergency Room with complaints of abnormal test results. He is accompanied by his Mother. He reports he underwent a CT scan yesterday and was told by his doctor that there is "fluid in my lungs". He states he had a CT of the chest performed at [facility] in [place] after experiencing shoulder pain, back pain and shortness of breath for the past "couple of weeks". His Mother reports he experienced an aortic dissection at [facility] last year. He was in the hospital in [place] for several months afterwards. Mom states his doctors believe the tear in his aorta was caused by his high blood pressure placing " too much stress on his heart". She notes he has needed to have fluid drained from his lungs in the past. The patient notes he felt similar the last time he needed the fluid drained. He has a history of chronic renal failure and receives dialysis on Mondays, Wednesdays and Fridays. He was last dialyzed earlier today and he states there were no problems at today's dialysis appointment. The patient denies any recent fevers or vomiting. 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 A total of 10 systems reviewed and were otherwise negative. Past Medical & Surgical Medical Problems: (1) Cardiopulmonary arrest with successful resuscitation (2) Chest pain (3) Chronic renal failure syndrome (4) Diabetic complication (5) Encounter for hemodialysis for ESRD (6) ESRD on hemodialysis (7) History of - hypertension (8) Hyperkalemia (9) Hypertension Surgical Problems: (1) Aortic dissection (2) Renal transplant, status post Family History Cancer Hypertension Social History Smoking Status: Never Smoker Alcohol Use: none Drug Use: none Marital Status: single Housing Status: lives with family Occupation Status: student Current/Historical Medications Scheduled Carvedilol (Coreg), 50 MG PO BID Ferric Citrate (Auryxia), 420 MG PO TIDM Gabapentin (Neurontin), 100 MG PO Q6H Gabapentin (Neurontin), 300 MG PO HS Levothyroxine Sodium (Synthroid), 1 TAB PO QAM Lisinopril (Lisinopril), 20 MG PO DAILY Sertraline (Zoloft), 50 MG PO DAILY Sevelamer Carbonate (Renvela), 1,600 MG PO TIDM Sevelamer Carbonate (Renvela), 800 MG PO DAILY Triamcinolone Acetonide (Nasal (Nasacort Allergy 24Hr), 2 SPRAYS MERCEDEZ DAILY Scheduled PRN Nortriptyline (Pamelor), 50 MG PO DAILY PRN for UNDECIDED Saline ([place] Nasal [place]), 2 SPRAYS NA Q1H PRN for nasal congestion Allergies Coded Allergies: Penicillins (Unverified Allergy, Severe, FACE SWELLS, 12/08/16) Amoxicillin (Verified Allergy, Unknown, ?, 12/08/16) Physical Exam Vital Signs Date Time Temp Pulse Resp B/P (MAP) Pulse Ox O2 Delivery O2 Flow Rate FiO2 12/08/16 21:17 94 18 159/104 96 Room Air 12/08/16 19:45 91 18 138/91 97 Room Air 12/08/16 18:59 97 Room Air 12/08/16 18:12 37.2 95 18 147/95 97 Room Air Physical Exam GENERAL: Patient is in no acute distress. HEENT: No acute trauma, normocephalic atraumatic, mucous membranes moist, no nasal congestion, no scleral icterus. NECK: No stridor, no adenopathy, no meningismus, trachea is midline. LUNGS: Crackles with decreased breath sounds on the right, left lung is clear. HEART: Without murmurs gallops or rubs, regular rate and rhythm. ABDOMEN: Soft, nontender, bowel sounds positive, no hernias, no peritonitis. EXTREMITIES: No cyanosis or edema, full range of motion of all the joints without pain or difficulty, no signs for acute trauma. NEUROLOGIC: Oriented x 3, no acute motor or sensory deficits, no focal weakness. SKIN: No rash, no jaundice, no diaphoresis. Medical Decision & Procedures ER Provider Diagnostic Interpretation: CT CHEST WITHOUT CONTRAST, completed at [facility] in [place] on 2016 IMPRESSION: 1. Moderately sized right pleural effusion with extension along the right major fissure, accounting for the wedgelike area of density questioned on 12/02/2016 radiograph. A probably small loculated component along the anterolateral aspect of the upper lobe of right lung most likely accounts for the nodular density questioned on that examination. No alveolar consolidation or solid nodule is present on the current study. 2. Overall, effusion is likely diminished from 05/23/2016. 3. Moderate cardiomegaly. 4. Likely reactive mild mediastinal lymph node prominence. Radiology results as stated below per my review and radiologist interpretation: SINGLE VIEW CHEST CLINICAL HISTORY: Dyspnea. FINDINGS: An AP, portable, upright chest radiograph is compared to study dated 08/14/2016 and correlated with chest CT dated 02/24/2016. The examination is degraded by portable technique and patient rotation. The patient is status post midline sternotomy. The heart is enlarged. The pulmonary vasculature is noncongested. Airspace consolidation is seen in the right midlung. Foci of linear atelectasis are present in the left lower lung. There are small pleural effusions. Fluid is seen within the right minor fissure. No pneumothorax is seen. The skeletal structures appear osteopenic. The bony thorax is grossly intact. Mild thoracic scoliosis is observed. IMPRESSION: 1. Cardiomegaly without radiographic evidence of congestive failure. 2. Dense airspace consolidation is seen in the right midlung, likely representing pneumonia. Clinical correlation will be required and radiographic follow-up to resolution is recommended. 3. Small pleural effusions. Electronically signed by: Edgard López M.D. 12/08/2016 7:45 PM Laboratory Results 12/08/16 18:45 Red Blood Count 3.29, Mean Corpuscular Volume 99.4, Mean Corpuscular Hemoglobin 33.1, Mean Corpuscular Hemoglobin Concent 33.3, Mean Platelet Volume 10.0, Neutrophils (%) (Auto) 69.2, Lymphocytes (%) (Auto) 16.4, Monocytes (%) (Auto) 10.8, Eosinophils (%) (Auto) 2.4, Basophils (%) (Auto) 0.5, Neutrophils # (Auto ) 3.96, Lymphocytes # (Auto) 0.94, Monocytes # (Auto) 0.62, Eosinophils # (Auto ) 0.14, Basophils # (Auto) 0.03 12/08/16 18:45 12/08/16 19:46 Test 12/08/16 18:45 12/08/16 19:46 White Blood Count 5.73 K/uL (4.8-10.8) Red Blood Count 3.29 M/uL (4.7-6.1) Hemoglobin 10.9 g/dL (14.0-18.0) Hematocrit 32.7 % (42-52) Mean Corpuscular Volume 99.4 fL (80-100) Mean Corpuscular Hemoglobin 33.1 pg (25-34) Mean Corpuscular Hemoglobin Concent 33.3 g/dl (32-36) Platelet Count 101 K/uL (130-400) Mean Platelet Volume 10.0 fL (7.4-10.4) Neutrophils (%) (Auto) 69.2 % Lymphocytes (%) (Auto) 16.4 % Monocytes (%) (Auto) 10.8 % Eosinophils (%) (Auto) 2.4 % Basophils (%) (Auto) 0.5 % Neutrophils # (Auto) 3.96 K/uL (1.4-6.5) Lymphocytes # (Auto) 0.94 K/uL (1.2-3.4) Monocytes # (Auto) 0.62 K/uL (0.11-0.59) Eosinophils # (Auto) 0.14 K/uL (0-0.5) Basophils # (Auto) 0.03 K/uL (0-0.2) RDW Standard Deviation 56.0 fL (36.4-46.3) RDW Coefficient of Variation 15.4 % (11.5-14.5) Immature Granulocyte % (Auto) 0.7 % Immature Granulocyte # (Auto) 0.04 K/uL (0.00-0.02) Anion Gap 7.0 mmol/L (3-11) Est Creatinine Clear Calc Drug Dose 21.8 ml/min Estimated GFR () 18.3 Estimated GFR (Non- 15.8 BUN/Creatinine Ratio 4.2 (10-20) Calcium Level 8.9 mg/dl (8.5-10.1) Total Bilirubin 0.8 mg/dl (0.2-1) Alanine Aminotransferase (ALT/SGPT) 31 U/L (12-78) Alkaline Phosphatase 154 U/L (45-117) Troponin I < 0.015 ng/ml (0-0.045) Total Protein 8.1 gm/dl (6.4-8.2) Albumin 3.5 gm/dl (3.4-5.0) Globulin 4.6 gm/dl (2.5-4.0) Albumin/Globulin Ratio 0.8 (0.9-2) Prothrombin Time 14.3 SECONDS (9.0-12.0) Prothromb Time International Ratio 1.3 (0.9-1.1) Activated Partial Thromboplast Time 25.2 SECONDS (21.0-31.0) Partial Thromboplastin Ratio 1.0 Aspartate Amino Transf (AST/SGOT) 21 U/L (15-37) Chemistry Specimen Hemolysis Laboratory results reviewed by me. Medications Administered Medications (Trade) Dose Ordered Sig/Moises Route Start Time Stop Time Status Last Admin Dose Admin Clindamycin Phosphate (Cleocin 600mg/ 54ml D5W) 600 mg ONE ONCE IV 12/08/16 20:15 12/08/16 20:16 DC 12/08/16 21:00 600 MG ECG Indication: SOB/dyspnea Rate (beats per minute): 95 Rhythm: normal sinus Findings: no ectopy, other (Diffuse non-specific T-wave changes, no dysrhythmia ) ED Course 1818: The patient was evaluated in room A4. A complete history and physical exam was performed. 2004: I discussed the patients case with Dr. Flores, [facility]. She will see the patient tomorrow and recommends he be further evaluated by the hospital medicine team. 2013: I discussed the patients case with Dr. Costa, [facility] Hospitalist. The patient will be further evaluated. 2015: Cleocin 600 mg/54 ml IV. Medical Decision The differential diagnoses considered include pneumonia, CHF, pleural effusion, electrolyte imbalance, anemia and pneumonia. There is no leukocytosis. The patient is anemic but this appears baseline. Renal panel testing shows a high creatinine consistent with his dialysis need. Potassium was normal. No hepatitis. No worrisome coagulopathy. EKG showed a sinus rhythm with some nonspecific change, no acute ischemia. Cardiac enzyme testing 1 is not consistent with acute cardiac injury. Chest film shows a possible pneumonia versus some fluid on the right. No pneumothorax. No CHF. I was able to obtain the CT reading done at the outside hospital. The chest CT suggests an effusion on the right. The patient was given IV clindamycin. This was given for the potential diagnosis of pneumonia. I spoke to the pulmonology physician promotional model. This may be pneumonia, this may be an effusion, it maybe both. IV antibiotic therapy was recommended. As to whether the potential fluid can be drained while in the hospital is unclear. I spoke to the patient and to the disease case manager rn. The on-call hospitalist was consulted. Medication Reconcilliation Current Medication List: was personally reviewed by me Blood Pressure Screening Patient's blood pressure: Elevated blood pressure Blood pressure disposition: Referred to PCP Consults Time Called: 2013 Consulting Physician: Dr. Costa [facility] Hospitalist Returned Call: 2013 I discussed the patients case with Dr. Costa [facility] Hospitalist. The patient will be further evaluated. Impression Primary Impression: Pneumonia Additional Impression: Pleural effusion Scribe Attestation The scribe's documentation has been prepared under my direction and personally reviewed by me in its entirety. I confirm that the note above accurately reflects all work, treatment, procedures, and medical decision making performed by me. Departure Information Dispostion Being Evaluated By Hospitalist Referrals No Doctor, Assigned (PCP) Patient Instructions [facility] Problem Qualifiers
[2016-12-08] MEDS ORDERED: GABA-113 PO (18:33)
[2016-12-08] MEDS ORDERED: FERR1TAB68 PO (18:33)
[2016-12-08 18:59] VITALS: O2SAT 97
[2016-12-08 19:30] LABS: BASO % 0.5 %; BASO ABS # 0.03 K/uL (0-0.2); COMPLETE YES; EOS % 2.4 %; HEMATOCRIT 32.7 % (42-52); IG% 0.7 %; LYMPH % 16.4 %; LYMPH ABS # 0.94 K/uL (1.2-3.4); MEAN CELL VOLUME 99.4 fL (80-100); MEAN CORPUSCULAR HEMOGLOBIN 33.1 pg (25-34); MEAN CORPUSCULAR HGB CONC 33.3 g/dl (32-36); MONO % 10.8 %; NEUT % 69.2 %; PLATELET COUNT 101 K/uL (130-400); RED BLOOD COUNT 3.29 M/uL (4.7-6.1); WHITE BLOOD COUNT 5.73 K/uL (4.8-10.8)
[2016-12-08 19:39] LABS: ALB/GLOB RATIO 0.8 (0.9-2); ALKALINE PHOSPHATASE 154 U/L (45-117); ALT/SGPT 31 U/L (12-78); BLOOD UREA NITROGEN 20 mg/dl (7-18); BUN/CREATININE RATIO 4.2 (10-20); CALCIUM 8.9 mg/dl (8.5-10.1); CARBON DIOXIDE 37 mmol/L (21-32); CHLORIDE 92 mmol/L (98-107); GLUCOSE 75 mg/dl (70-99); SODIUM 136 mmol/L (136-145)
--- NOTE | 2016-12-08 19:46 | DIAGNOSTIC IMAGING REPORT ---
SINGLE VIEW CHEST CLINICAL HISTORY: Dyspnea. FINDINGS: An AP, portable, upright chest radiograph is compared to study dated 08/14/2016 and correlated with chest CT dated 02/24/2016. The examination is degraded by portable technique and patient rotation. The patient is status post midline sternotomy. The heart is enlarged. The pulmonary vasculature is noncongested. Airspace consolidation is seen in the right midlung. Foci of linear atelectasis are present in the left lower lung. There are small pleural effusions. Fluid is seen within the right minor fissure. No pneumothorax is seen. The skeletal structures appear osteopenic. The bony thorax is grossly intact. Mild thoracic scoliosis is observed. IMPRESSION: 1. Cardiomegaly without radiographic evidence of congestive failure. 2. Dense airspace consolidation is seen in the right midlung, likely representing pneumonia. Clinical correlation will be required and radiographic follow-up to resolution is recommended. 3. Small pleural effusions. Electronically signed by: Edgard López M.D. 12/08/2016 7:45 PM Dictated Date/Time: 12/08/2016 7:43 PM
[2016-12-08 20:11] LABS: INR 1.3 (0.9-1.1); PROTHROMBIN TIME (PATIENT) 14.3 SECONDS (9.0-12.0)
[2016-12-08] MEDS ORDERED: CLINDAMYCIN 600 MG/54 ML D5W IV ONE (20:15)
[2016-12-08 21:28] VITALS: Ht 170.2 cm; Wt 64.0 kg
[2016-12-08] MEDS ORDERED: ZOLPIDEM TARTRATE 5 MG TAB PO PRN (21:30)
[2016-12-08] MEDS ORDERED: POLYETHYLENE (MIRALAX) 17 GM PACK PO PRN (21:30)
[2016-12-08] MEDS ORDERED: LEVALBUTEROL 0.63MG/3 ML NEB INH PRN (21:30)
[2016-12-08] MEDS ORDERED: SODIUM CHLORIDE 0.65% NA SOLN 45 ML (OCEAN) PRN (21:30)
[2016-12-08] MEDS ORDERED: ONDANSETRON INJ 2 MG/ML 2 ML VIAL IV PRN (21:30)
[2016-12-08] MEDS ORDERED: ALUMINUM/MAGNESIUM/SIMETH (MAALOX MAX) 30 ML UDC PO PRN (21:30)
[2016-12-08] MEDS ORDERED: NORTRIPTYLINE HCL 25 MG CAP PO PRN (21:30)
[2016-12-08] MEDS ORDERED: MAGNESIUM HYDROXIDE SUSP 30 ML UDC PO PRN (21:30)
[2016-12-08] MEDS ORDERED: ACETAMINOPHEN 325 MG TAB PO PRN (21:30)
[2016-12-08] MEDS ORDERED: CLINDAMYCIN IV 600 MG in DEXTROSE 5% 50ML 50 ML IV SCH (21:30)
[2016-12-08] MEDS ORDERED: HEPARIN SOD 5000 UNIT/0.5 ML CARP SQ SCH (22:00)
[2016-12-08] MEDS ORDERED: CLIN300C2 PO (22:01)
--- NOTE | 2016-12-08 22:05 | History and Physical ---
History & Physical Date & Time of Service: Dec 08, 2016 at 21:31 Chief Complaint: Dr Did Mri, Said He Has Fluid In Lungs Primary Care Physician: Lebron Chu D.O. History of Present Illness Source: patient 21 y/o M with complex history including membranous glomerulonephropathy - ESRD since age 16, ascending aortic dissection 02/10, HTN, hypothyroid. Pt presented with pleuritic back and chest pain initially to [facility]. He was sent for a CT chest owing to his history. A right pleural effusion was diagnosed which is partially loculated , however, it appears that this was present on a CT 05/13 and has diminished in size. The journalists and other writers was contacted to discuss the case. It was advised that the pt be treated empirically for pneumonia. As he would not require immediate thoracentesis, it would be reasonable to reimage and consider thoracentesis following a course of antibiotics if there is no improvement. Past Medical/Surgical History Medical Problems: (1) Chronic renal failure syndrome Status: Chronic (2) History of - hypertension Status: Chronic Surgical Problems: (1) Aortic dissection Status: Resolved Family History Cancer Hypertension Social History Smoking Status: Never Smoker Drug Use: none Marital Status: single Occupational Status: student Multi-Drug Resistant Organisms History of MDRO: Yes Type of MDRO: MRSA Allergies Coded Allergies: Penicillins (Unverified Allergy, Severe, FACE SWELLS, 12/08/16) Amoxicillin (Verified Allergy, Unknown, ?, 12/08/16) Home Medications Scheduled Carvedilol (Coreg), 50 MG PO BID Clindamycin Hcl (Cleocin), 300 MG PO TID Ferric Citrate (Auryxia), 420 MG PO TIDM Gabapentin (Neurontin), 100 MG PO Q6H Gabapentin (Neurontin), 300 MG PO HS Levothyroxine Sodium (Synthroid), 1 TAB PO QAM Lisinopril (Lisinopril), 20 MG PO DAILY Sertraline (Zoloft), 50 MG PO DAILY Sevelamer Carbonate (Renvela), 1,600 MG PO TIDM Sevelamer Carbonate (Renvela), 800 MG PO DAILY Triamcinolone Acetonide (Nasal (Nasacort Allergy 24Hr), 2 SPRAYS MERCEDEZ DAILY Scheduled PRN Nortriptyline (Pamelor), 50 MG PO DAILY PRN for UNDECIDED Saline ([place] Nasal [place]), 2 SPRAYS NA Q1H PRN for nasal congestion Physical Exam Vital Signs Date Time Temp Pulse Resp B/P (MAP) Pulse Ox O2 Delivery O2 Flow Rate FiO2 12/08/16 21:17 94 18 159/104 96 Room Air 12/08/16 19:45 91 18 138/91 97 Room Air 12/08/16 18:59 97 Room Air 12/08/16 18:12 37.2 95 18 147/95 97 Room Air Diagnostics Laboratory Results Results Past 24 Hours Test 12/08/16 18:45 12/08/16 19:46 Range/Units White Blood Count 5.73 4.8-10.8 K/uL Red Blood Count 3.29 4.7-6.1 M/uL Hemoglobin 10.9 14.0-18.0 g/dL Hematocrit 32.7 42-52 % Mean Corpuscular Volume 99.4 80-100 fL Mean Corpuscular Hemoglobin 33.1 25-34 pg Mean Corpuscular Hemoglobin Concent 33.3 32-36 g/dl Platelet Count 101 130-400 K/uL Mean Platelet Volume 10.0 7.4-10.4 fL Neutrophils (%) (Auto) 69.2 % Lymphocytes (%) (Auto) 16.4 % Monocytes (%) (Auto) 10.8 % Eosinophils (%) (Auto) 2.4 % Basophils (%) (Auto) 0.5 % Neutrophils # (Auto) 3.96 1.4-6.5 K/uL Lymphocytes # (Auto) 0.94 1.2-3.4 K/uL Monocytes # (Auto) 0.62 0.11-0.59 K/uL Eosinophils # (Auto) 0.14 0-0.5 K/uL Basophils # (Auto) 0.03 0-0.2 K/uL RDW Standard Deviation 56.0 36.4-46.3 fL RDW Coefficient of Variation 15.4 11.5-14.5 % Immature Granulocyte % (Auto) 0.7 % Immature Granulocyte # (Auto) 0.04 0.00-0.02 K/uL Sodium Level 136 136-145 mmol/L Potassium Level 4.0 3.5-5.1 mmol/L Chloride Level 92 98-107 mmol/L Carbon Dioxide Level 37 21-32 mmol/L Anion Gap 7.0 3-11 mmol/L Blood Urea Nitrogen 20 7-18 mg/dl Creatinine 4.90 0.60-1.40 mg/dl Est Creatinine Clear Calc Drug Dose 21.8 ml/min Estimated GFR () 18.3 Estimated GFR (Non- 15.8 BUN/Creatinine Ratio 4.2 10-20 Random Glucose 75 70-99 mg/dl Calcium Level 8.9 8.5-10.1 mg/dl Total Bilirubin 0.8 0.2-1 mg/dl Aspartate Amino Transf (AST/SGOT) 21 15-37 U/L Alanine Aminotransferase (ALT/SGPT) 31 12-78 U/L Alkaline Phosphatase 154 45-117 U/L Troponin I < 0.015 0-0.045 ng/ml Total Protein 8.1 6.4-8.2 gm/dl Albumin 3.5 3.4-5.0 gm/dl Globulin 4.6 2.5-4.0 gm/dl Albumin/Globulin Ratio 0.8 0.9-2 Prothrombin Time 14.3 9.0-12.0 SECONDS Prothromb Time International Ratio 1.3 0.9-1.1 Activated Partial Thromboplast Time 25.2 21.0-31.0 SECONDS Partial Thromboplastin Ratio 1.0 Chemistry Specimen Hemolysis Microbiology Results 12/08/16 Blood Culture, Received Pending 12/08/16 Blood Culture, Received Pending Impression VTE Prophylaxis VTE Risk Assessment Done? Y/N: Yes Risk Level: Moderate
--- NOTE | 2016-12-08 22:06 | EMERGENCY ROOM VISIT NOTE ---
ED Visit Note First contact with patient: 18:18 Patient was seen by the on-call hospitalist. After speaking with the patient, his mother, the on-call table tender sludge, the decision to try outpatient management was made. The patient is going to be on clindamycin 3 times a day for 10 days. He will be seen in the office by pulmonology next week. His mother will bring him back for worsening breathing, fever or vomiting.
[2016-12-08 22:18] VITALS: BP 143/99; PULSE 94; TEMP 37.2; O2SAT 96
--- NOTE | 2016-12-08 22:19 | Medical Consult ---
Consultation Date of Consultation: Dec 08, 2016. Attending Physician: History of Present Illness 21 y/o M with complex history including membranous glomerulonephropathy - ESRD since age 16, ascending aortic dissection 02/10, HTN, hypothyroid. Pt presented with pleuritic back and chest pain, occasional cough - initially to [facility]. He was sent for a CT chest owing to his history. A right pleural effusion was diagnosed which is partially loculated , however, it appears that this was present on a CT 05/13 and has diminished in size. The bullard operator was contacted to discuss the case. It was advised that the pt be treated empirically for pneumonia. As he would not require immediate thoracentesis, it would be reasonable to reimage and consider thoracentesis following a course of antibiotics if there is no improvement. Past Medical/Surgical History 1) Membranous glomerulonephritis - ESRD x 5 yrs. Pt has failed multiple renal transplants. Currently on dialysis. 2) LUE dialysis fistula 3) Ascending aortic dissection 02/11 - required emergent surgery and 11 days on ECMO at [facility] 4) Hypothyroidism 5) Questionable history of DVT 6) HTN Family History Cancer Hypertension Social History Smoking Status: Never Smoker Drug Use: none Marital Status: single Housing Status: lives with family Occupation Status: student Allergies Coded Allergies: Penicillins (Unverified Allergy, Severe, FACE SWELLS, 12/08/16) Amoxicillin (Verified Allergy, Unknown, ?, 12/08/16) Current Inpatient Medications Current Inpatient Medications Medications (Trade) Dose Ordered Sig/Moises Route Start Time Stop Time Status Last Admin Dose Admin Carvedilol (Coreg Tab) 50 mg BID PO 12/09/16 09:00 01/08/17 08:59 UNV Gabapentin (Neurontin Cap) 100 mg Q6H PO 12/08/16 21:30 01/07/17 21:29 UNV Gabapentin (Neurontin Cap) 300 mg HS PO 12/09/16 21:00 01/08/17 20:59 UNV Levothyroxine Sodium (Synthroid Tab) 50 mcg QAM PO 12/09/16 09:00 01/08/17 08:59 UNV Lisinopril (Zestril Tab) 20 mg DAILY PO 12/09/16 09:00 01/08/17 08:59 UNV Nortriptyline HCl (Pamelor Cap) 50 mg DAILY PRN PO 12/08/16 21:30 01/07/17 21:29 UNV Sodium Chloride ([place] Nasal Grady) 2 sprays Q1H PRN NA 12/08/16 21:30 01/07/17 21:29 UNV Sertraline HCl (Zoloft Tab) 50 mg DAILY PO 12/09/16 09:00 01/08/17 08:59 UNV Triamcinolone Acetonide (Nasacort Allergy 24hr) 2 sprays DAILY MERCEDEZ 12/09/16 09:00 01/08/17 08:59 UNV Non-Formulary Medication (Ferric Citrate (Auryxia)) 420 mg TIDM PO 12/09/16 08:00 01/08/17 07:59 UNV Non-Formulary Medication (Sevelamer Carbonate (Renvela)) 1,600 mg TIDM PO 12/09/16 08:00 01/08/17 07:59 UNV Non-Formulary Medication (Sevelamer Carbonate (Renvela)) 800 mg DAILY PO 12/09/16 09:00 01/08/17 08:59 UNV Clindamycin Phosphate 600 mg/ Dextrose 54 ml @ 100 mls/hr Q8H IV 12/08/16 21:30 12/15/16 21:29 UNV Lactobacillus Acidophilus (Floranex Tab) 4 tab TIDM PO 12/09/16 08:00 01/08/17 07:59 UNV Levalbuterol (Xopenex 0.63 Mg/ 3 Ml Neb) 0.63 mg Q6R PRN INH 12/08/16 21:30 01/07/17 21:29 UNV Review of Systems Constitutional: No fever, No chills, No sweats Eyes: No worsening of vision ENT: No hearing loss, No unusual epistaxis, No nasal symptoms Respiratory: + cough, No sputum, No wheezing, No shortness of breath Cardiovascular: + chest pain (pleuritic R sided) Abdomen: No pain, No nausea, No vomiting Musculoskeletal: + muscle pain (Pleuritic upper back pain) Genitourinary - Male: No hematuria, No dysuria Neurologic: No memory loss, No paralysis, No weakness Psychiatric: No depression symptoms Endocrine: No fatigue Hematologic / Lymphatic: No abnormal bleeding/bruising Integumentary: No rash Allergic / Immunologic: No environmental allergies Physical Exam Date Time Temp Pulse Resp B/P (MAP) Pulse Ox O2 Delivery O2 Flow Rate FiO2 12/08/16 21:17 94 18 159/104 96 Room Air 12/08/16 19:45 91 18 138/91 97 Room Air 12/08/16 18:59 97 Room Air 12/08/16 18:12 37.2 95 18 147/95 97 Room Air General Appearance: WD/WN, no apparent distress Head: normocephalic Eyes: normal inspection ENT: normal ENT inspection, pharynx normal Neck: supple, no JVD Respiratory/Chest: chest non-tender, no respiratory distress, no accessory muscle use, + decreased breath sounds (R base) Cardiovascular: regular rate, rhythm, no edema, no gallop, no JVD Abdomen/GI: normal bowel sounds, non tender, soft Back: normal inspection, no CVA tenderness, no muscle spasm, normal range of motion Extremities/Musculoskelatal: normal inspection, no calf tenderness, normal capillary refill Neurologic/Psych: car parker II-XII nml as tested, no motor/sensory deficits, alert, normal mood/affect, normal reflexes, oriented x 3 Skin: normal color, warm/dry, no rash Laboratory Results Last 24 Hours Test 12/08/16 18:45 12/08/16 19:46 White Blood Count 5.73 K/uL Red Blood Count 3.29 M/uL Hemoglobin 10.9 g/dL Hematocrit 32.7 % Mean Corpuscular Volume 99.4 fL Mean Corpuscular Hemoglobin 33.1 pg Mean Corpuscular Hemoglobin Concent 33.3 g/dl Platelet Count 101 K/uL Mean Platelet Volume 10.0 fL Neutrophils (%) (Auto) 69.2 % Lymphocytes (%) (Auto) 16.4 % Monocytes (%) (Auto) 10.8 % Eosinophils (%) (Auto) 2.4 % Basophils (%) (Auto) 0.5 % Neutrophils # (Auto) 3.96 K/uL Lymphocytes # (Auto) 0.94 K/uL Monocytes # (Auto) 0.62 K/uL Eosinophils # (Auto) 0.14 K/uL Basophils # (Auto) 0.03 K/uL RDW Standard Deviation 56.0 fL RDW Coefficient of Variation 15.4 % Immature Granulocyte % (Auto) 0.7 % Immature Granulocyte # (Auto) 0.04 K/uL Sodium Level 136 mmol/L Potassium Level mmol/L 4.0 mmol/L Chloride Level 92 mmol/L Carbon Dioxide Level 37 mmol/L Anion Gap 7.0 mmol/L Blood Urea Nitrogen 20 mg/dl Creatinine 4.90 mg/dl Est Creatinine Clear Calc Drug Dose 21.8 ml/min Estimated GFR () 18.3 Estimated GFR (Non- 15.8 BUN/Creatinine Ratio 4.2 Random Glucose 75 mg/dl Calcium Level 8.9 mg/dl Total Bilirubin 0.8 mg/dl Aspartate Amino Transf (AST/SGOT) U/L 21 U/L Alanine Aminotransferase (ALT/SGPT) 31 U/L Alkaline Phosphatase 154 U/L Troponin I < 0.015 ng/ml Total Protein 8.1 gm/dl Albumin 3.5 gm/dl Globulin 4.6 gm/dl Albumin/Globulin Ratio 0.8 Prothrombin Time 14.3 SECONDS Prothromb Time International Ratio 1.3 Activated Partial Thromboplast Time 25.2 SECONDS Partial Thromboplastin Ratio 1.0 Chemistry Specimen Hemolysis Assessment & Plan 21 y/o M with complex history including membranous glomerulonephropathy - ESRD since age 16, ascending aortic dissection 02/10, HTN, hypothyroid. Pt presented with pleuritic back and chest pain, occasional cough - initially to [facility]. He was sent for a CT chest owing to his history. A right pleural effusion was diagnosed which is partially loculated , however, it appears that this was present on a CT 05/13 and has diminished in size. The bullard operator was contacted to discuss the case. It was advised that the pt be treated empirically for pneumonia. As he would not require immediate thoracentesis, it would be reasonable to reimage and consider thoracentesis following a course of antibiotics if there is no improvement. 1) Effusion - chronic - suspected pneumonia - Pt will be placed on a course of PO Clinda. Follow-up with pulmonology will be arranged and he may need thoracentesis if there is no clinical improvement or if indicated by reimaging. He is instructed to return to the hospital with fever, SOB, worsening cough. 2) ESRD - due for dialysis [place] 3) HTN - Cont Lisinopril 4) Hypothyroid - cont Synthroid 5) Hx dissection - can f/u with cardiothoracic at [facility] as needed Above discussed with pt, mother, ER attending and pulmonology business operations consultant Total time for this consult including review of extensive records, imiaging, labs, meds - 40 min
[2016-12-08] MEDS ORDERED: SEVELAMER HYDROCH 800 MG TAB PO PRN (22:30)
[2016-12-09] MEDS ORDERED: GABAPENTIN 100 MG CAP PO SCH
[2016-12-09] MEDS ORDERED: LEVOTHYROXINE 50 MCG TAB PO SCH (07:00)
[2016-12-09] MEDS ORDERED: LACTOBACILLUS ACIDOPHILUS (FLORANEX) TAB PO SCH (08:00)
[2016-12-09] MEDS ORDERED: SEVELAMER HYDROCH 800 MG TAB PO SCH (08:00)
[2016-12-09] MEDS ORDERED: FERRIC CITRATE 420 MG PO SCH (08:00)
[2016-12-09] MEDS ORDERED: NON-FORMULARY MEDICATION (Sevelamer Carbonate (Renvela) 800 MG) PO PRN (09:00)
[2016-12-09] MEDS ORDERED: TRIAMCINOLONE ACET NASAL SPRAY 10.8ML BTL NAE SCH (09:00)
[2016-12-09] MEDS ORDERED: LISINOPRIL 20 MG TAB PO SCH (09:00)
[2016-12-09] MEDS ORDERED: SERTRALINE HCL 50 MG TAB PO SCH (09:00)
[2016-12-09] MEDS ORDERED: CARVEDILOL 25 MG TAB PO SCH (09:00)
[2016-12-09] MEDS ORDERED: GABAPENTIN 300 MG CAP PO SCH (21:00)
== END 2016-12-08 22:19 | disposition home or self-care (01) ==
LOC: C.EDB 18:08 → ENRESERV 21:46 → CANBEDREQ 21:56 → C.EDA 22:19
DX: J18.9 Pneumonia, unspecified organism (principal); J90 Pleural effusion, not elsewhere classified; E11.9 Type 2 diabetes mellitus without complications; N18.6 End stage renal disease; Z99.2 Dependence on renal dialysis; I10 Essential (primary) hypertension; E87.5 Hyperkalemia; Z82.49 Family history of ischemic heart disease and other diseases of the circulatory system

== ENCOUNTER 2017-03-21 17:24 | Inpatient (IN) | payer OTHER ==
[~2017-03-21] VITALS: Ht 170.2 cm; Wt 61.8 kg
[~2017-03-21 17:24] MED LIST changes: -ASCA500 PO; -CMD5 PO; -DXY100 PO; -RXC5 PO; -SNK PO
[2017-03-21] MEDS ORDERED: GABA-113 PO (18:33)
[2017-03-21] MEDS ORDERED: FERR1TAB68 PO (18:33)
[2017-03-21] MEDS ORDERED: SALI0.6510 (18:55)
[2017-03-21] MEDS ORDERED: TRIA1SPR4 NAE (18:55)
[2017-03-21] MEDS ORDERED: LEVO50TA6 PO (18:55)
--- NOTE | 2017-03-21 19:23 | EMERGENCY ROOM VISIT NOTE ---
History First contact with patient: 18:52 (Gary Shin M.D.) First contact with patient: 18:52 (Leonard Rick M.D.) Chief Complaint: ARM PAIN Stated Complaint: LEFT ARM PAIN, PORT BIG LUMP- FISTUAL History of Present Illness 21m with a PMHx of membranous glomerulonephritis and renal failure since age 16 , failed multiple renal transplants who is now on hemodialysis in [place] presents to the ER for evaluation of a growing painful mass at the proximal site of his Left arm AV fistula. Patient recently had a balloon implanted in his Left AV fistula in January in [place], over the past few weeks he has noticed a red abscess getting larger and more painful at his proximal AV fistula site. The site is TTP. He was scheduled to go to [place] to get this erythematous mass evaluated, he however missed the bus that was going to take him and came to this ER instead. He regularly gets hemodialysis on /, last hemodialysis on Sunday. ROS: No fevers, no chills, no SOB, pt does not produce urine. He does not feel sick. Source of History: patient, parent Position: arm (left) Symptom Intensity: moderate Timing: worsening Modifying Factors (Worsening): movement Modifying Factors (Relieving): rest (Gary Shin M.D.) Review of Systems See HPI for pertinent positives and negatives. A total of ten systems were reviewed and were otherwise negative. Constitutional: No fever, No chills ENT: No sore throat Respiratory: No cough, No sputum, No wheezing, No shortness of breath, No dyspnea on exertion Cardiovascular: No chest pain Abdomen: No pain, No nausea, No vomiting, No diarrhea, No constipation Musculoskeletal: No joint pain, No muscle pain, No calf pain Genitourinary - Male: + problem reported (no urination) Neurologic: No memory loss (Gary Shin M.D.) Past Medical/Surgical History Medical Problems: (1) Cardiopulmonary arrest with successful resuscitation (2) Chest pain (3) Chronic renal failure syndrome (4) Diabetic complication (5) Encounter for hemodialysis for ESRD (6) ESRD on hemodialysis (7) History of - hypertension (8) Hyperkalemia (9) Hyperkalemia (10) Hypertension (11) Thrombosis of arteriovenous dialysis fistula (12) Thrombosis of arteriovenous dialysis fistula Surgical Problems: (1) Aortic dissection (2) Renal transplant, status post (Leonard Rick M.D.) Family History Cancer Hypertension (Gary Shin M.D.) Cancer Hypertension (Leonard Rick M.D.) Social History Smoking Status: Never Smoker Alcohol Use: none Drug Use: none Marital Status: single Housing Status: lives with family Occupation Status: student (Gary Shin M.D.) Current/Historical Medications Scheduled Carvedilol (Coreg), 50 MG PO BID Ferric Citrate (Auryxia), 420 MG PO TIDM Gabapentin (Neurontin), 100 MG PO Q6H Gabapentin (Neurontin), 300 MG PO HS Levothyroxine Sodium (Levothyroxine Sodium), 50 MCG PO QAM Lisinopril (Lisinopril), 20 MG PO DAILY Nortriptyline (Pamelor), 50 MG PO DAILY Sertraline (Zoloft), 50 MG PO DAILY Sevelamer Carbonate (Renvela), 1,600 MG PO TIDM Triamcinolone Acetonide (Nasal (Nasacort Allergy 24Hr), 2 SPRAYS MERCEDEZ DAILY Scheduled PRN Saline ([place] Nasal [place]), 2 SPRAYS NA Q1H PRN for Nasal Congestion Sevelamer Carbonate (Renvela), 800 MG PO DAILY PRN for With a Snack Physical Exam Vital Signs Date Time Temp Pulse Resp B/P (MAP) Pulse Ox O2 Delivery O2 Flow Rate FiO2 03/21/17 21:27 89 138/85 99 Room Air 03/21/17 17:31 36.6 94 18 144/88 99 Room Air (Leonard Rick M.D.) Physical Exam Gen: No acute distress. Accompanied by mom in the room. HEENT: Head - normocephalic and atraumatic. Pupils are equal, round, and reactive to light. Extraocular eye muscles are intact and sclera are anicteric. Nose - moist nasal mucosa without discharge. Mouth - moist buccal mucosa. Oropharynx is nonerythematous and there is no tonsillar exudate or edema noted. Neck: Supple; no JVD, nuchal rigidity, cervical lymphadenopathy, or auscultated bruits. Heart: Regular rate and rhythm. There is a normal S1 and S2 with no murmurs, clicks, or gallops appreciated. Lungs: Clear to auscultation bilaterally with no wheezes, rales, or rhonchi. Abdomen: Soft, completely nontender, nondistended, with good bowel sounds. There is no guarding, rigidity, or rebound noted. Extremities: AV fistula on the left brachial area, palpable thrill is felt, there is a 2cm round and 1cm protruding tender large mass over the proximal portion of the AV fistula. Neuro: The patient is awake and alert, oriented to day, time, and place. Muscle strength is 5/5 in all 4 extremities. The patient has equal fisher diver net strength and equal pedal push and pull. There are no cerebellar signs. (Gary Shin M.D.) Medical Decision & Procedures ER Provider Diagnostic Interpretation: DOPPLER ULTRASOUND LEFT UPPER EXTREMITY HEMODIALYSIS ACCESS CLINICAL HISTORY: Left arm pain. Palpable lump. COMPARISON STUDY: No priors. FINDINGS: Real-time, grayscale, and color Doppler sonography of a left upper extremity dialysis fistula is performed. There is extensive nonocclusive thrombus seen throughout the left upper extremity fistula. The fistula is patent. Velocities within the fistula measure up to 260 cm/s. Velocities at the arterial anastomosis measure up to 140 cm/s. No fluid collection is seen within the overlying soft tissues. IMPRESSION: 1. The left upper extremity fistula is patent. 2. Extensive nonocclusive thrombus is present throughout the fistula. This corresponds to the site of palpable concern. (Gary Shin M.D.) Laboratory Results Test 03/21/17 20:35 Total Bilirubin 0.5 mg/dl (0.2-1) Direct Bilirubin 0.2 mg/dl (0-0.2) Aspartate Amino Transf (AST/SGOT) 28 U/L (15-37) Alanine Aminotransferase (ALT/SGPT) 39 U/L (12-78) Alkaline Phosphatase 173 U/L (45-117) Total Protein 8.3 gm/dl (6.4-8.2) Albumin 3.5 gm/dl (3.4-5.0) (Leonard Rick M.D.) ECG Indication: other (hyperkalemia) Rhythm: normal sinus (rate of 92) Findings: other (normal axis, normal intervals, Q waves in v1 and v2, T wave inversions in AVL) Change: EKG interpreted by myself. (Gary Shin M.D.) Change: EKG interpreted by myself (Leonard Rick M.D.) Medical Decision The patient's care and disposition was discussed with Dr. Rick, Attending ED Physician. This is a 21M with a lesion on the LUE at the site of his AV fistula. Differential diagnosis include blood clot, abscess, aneurysm, or thrombus. Triage Nursing notes were reviewed. ED Course included an extensive history and physical exam and imaging. CBC - no white cell count. BMP - creatinine is 12.2, K+ was 5.4 7:15 - Pt was seen and examined at bedside. 7:35 - Case was discussed with Dr. Rick. 7:40 - Spoke with Dr. López, Radiologist, regarding proper imaging for an abscess. US of the LUE was recommend (Vascular and non vascular) 8:00 - Case again discussed with Dr. Rick, blood work orders placed. 9:15 - Spoke with US tech, they believe that they got the Abscess with the US of the AV Fistula, non vascular US was cancelled. 9:40 - Discussed result with patient and mom in the room. 9:45 - Case with Discussed with Dr. Rick, US showed extensive non occlusive thrombus in the fistula. 9:50 - Paged Dr. Sierra (vascular surgery) 9:55 - Talked to Dr. Sierra, pt will need to be admitted on Abx and made NPO after midnight. 10:00 - Called for admission 10:05 - Spoke to [place] Resident Dr Baird for Admission. Will give a tray of food and order an EKG. Pt will be admitted for fistula revision. Advised Dr. Baird about Dr. Sierra' s request about Abx and making NPO after midnight. The pt was informed about the findings as listed above. All questions were answered. (Gary Shin M.D.) Patient seen and evaluated at bedside after the resident physician. Patient w/ L arm pain and noted swelling over AVF site. Good palpable thrill. Neuro intact distally. No overlying cellulitis. Blood work completed. Has ESRD and labs consistent, elevated BUN/creat and chronic anemia likely from CKD. Patient had US of LUE which showed non-occlusive thromus of AVF. Case discussed by resident w/ blocking machine operator second vascular surgeon, Dr. Sierra. Plan for operative fixation tomorrow. Patient admitted to medicine. Plan NPO at midnight and abx by inpatient team per Dr. Sierra. (Leonard Rick M.D.) Consults 9:50 - Paged Dr. Sierra (vascular surgery) 9:55 - Talked to Dr. Sierra, pt will need to be admitted on Abx and made NPO after midnight. 10:00 - Called for admission to [facility]. 10:05 - Spoke to [place] Resident Dr. Kajal Baird (PGY3 resident) for Admission. (Gary Shin M.D.) Impression Primary Impression: Thrombosis of arteriovenous dialysis fistula Additional Impressions: Non-occlusive thrombus Anemia Hyperkalemia ESRD on hemodialysis Critical Care I have personally spent greater than 40 minutes of critical care time in the direct management of this patient. This includes bedside care, interpretation of diagnostic studies, and testing, discussion with consultants, patient, and family members, and other required patient management activities. This 40 minutes is in excess of all separately billable procedures. (Leonard Rick M.D.) Departure Information Dispostion Admitted as an inpatient Condition FAIR Referrals No Doctor, Assigned (PCP) Patient Instructions My [facility] Resident Involvement: Resident Care Provided Care Provided: Pediatric Care ED (Gary Shin M.D.) Problem Qualifiers Primary Impression: Thrombosis of arteriovenous dialysis fistula Encounter type: initial encounter Qualified Codes: T82.868A - Thrombosis due to vascular prosthetic devices, implants and grafts, initial encounter Additional Impressions: Anemia Anemia type: due to chronic kidney disease Chronic kidney disease stage: on chronic dialysis Qualified Codes: N18.6 - End stage renal disease; D63.1 - Anemia in chronic kidney disease; Z99.2 - Dependence on renal dialysis
[2017-03-21 20:48] LABS: BASO % 0.3 %; BASO ABS # 0.02 K/uL (0-0.2); EOS % 4.4 %; EOS ABS # 0.33 K/uL (0-0.5); HEMATOCRIT 35.2 % (42-52); HEMOGLOBIN 11.9 g/dL (14.0-18.0); IG# 0.01 K/uL (0.00-0.02); LYMPH % 19.4 %; LYMPH ABS # 1.45 K/uL (1.2-3.4); MEAN CELL VOLUME 100.9 fL (80-100); MEAN CORPUSCULAR HEMOGLOBIN 34.1 pg (25-34); MEAN CORPUSCULAR HGB CONC 33.8 g/dl (32-36); MEAN PLATELET VOLUME 9.5 fL (7.4-10.4); MONO % 8.8 %; MONO ABS # 0.66 K/uL (0.11-0.59); NEUT ABS # 4.99 K/uL (1.4-6.5); PLATELET COUNT 146 K/uL (130-400); WHITE BLOOD COUNT 7.46 K/uL (4.8-10.8)
[2017-03-21 21:15] LABS: CALCIUM 9.4 mg/dl (8.5-10.1); CREATININE 12.2 mg/dl (0.60-1.40); POTASSIUM 5.4 mmol/L (3.5-5.1)
--- NOTE | 2017-03-21 21:34 | DIAGNOSTIC IMAGING REPORT ---
DOPPLER ULTRASOUND LEFT UPPER EXTREMITY HEMODIALYSIS ACCESS CLINICAL HISTORY: Left arm pain. Palpable lump. COMPARISON STUDY: No priors. FINDINGS: Real-time, grayscale, and color Doppler sonography of a left upper extremity dialysis fistula is performed. There is extensive nonocclusive thrombus seen throughout the left upper extremity fistula. The fistula is patent. Velocities within the fistula measure up to 260 cm/s. Velocities at the arterial anastomosis measure up to 140 cm/s. No fluid collection is seen within the overlying soft tissues. IMPRESSION: 1. The left upper extremity fistula is patent. 2. Extensive nonocclusive thrombus is present throughout the fistula. This corresponds to the site of palpable concern. Electronically signed by: Edgard López M.D. 03/21/2017 9:33 PM Dictated Date/Time: 03/21/2017 9:30 PM
--- NOTE | 2017-03-21 22:28 | History and Physical ---
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 Approx a month ago the patient was received dialysis and when the RN placed the dialysis needle into the fistula (left arm) she infiltrated the site. He states it was very painful when it occurred and since this time there has been progressive worsening of pain in the fistula area. He was seen in [place] and the surgeon placed " a balloon" after the infiltration. The patient was to undergo dialysis today however because of the pain associated with the fistula and now growing lesion at that site he came to the ED for evaluation. USG revealed a thrombus forming without an abscess. He typically receives HD MWF. The most recent admission was in July 2016 and he was placed in the ICU for ventricular arrhythmia secondary to hyperkalemia (K >10). He had missed dialysis which resulting in conductive changes in his EKG. He was also admitted to the hospital here Feb [id number]. He was evaluated and found to have an ascending aortic aneurysm and quickly transferred to [facility]. While admitted he required multiple cardiac surgeries as well as ECMO x11 days.Patient has a remote history of DVT and not currently on coumadin. Past Medical/Surgical History Medical Problems: (1) Chronic renal failure syndrome Status: Chronic (2) History of - hypertension Status: Chronic Surgical Problems: (1) Aortic dissection Status: Resolved Family History Cancer Hypertension Social History Smoking Status: Never Smoker Smokeless Tobacco Use: No Alcohol Use: none Drug Use: none Marital Status: single Occupational Status: student Immunizations History of Influenza Vaccine: Unknown History of Tetanus Vaccine?: Unknown History of Pneumococcal: Unknown History of Hepatitis B Vaccine: Unknown Multi-Drug Resistant Organisms History of MDRO: No Type of MDRO: MRSA Allergies Coded Allergies: Penicillins (Unverified Allergy, Severe, FACE SWELLS, 12/08/16) Amoxicillin (Verified Allergy, Unknown, ?, 12/08/16) Home Medications Scheduled Carvedilol (Coreg), 50 MG PO BID Ferric Citrate (Auryxia), 420 MG PO TIDM Gabapentin (Neurontin), 100 MG PO Q6H Gabapentin (Neurontin), 300 MG PO HS Levothyroxine Sodium (Levothyroxine Sodium), 50 MCG PO QAM Lisinopril (Lisinopril), 20 MG PO DAILY Nortriptyline (Pamelor), 50 MG PO DAILY Sertraline (Zoloft), 50 MG PO DAILY Sevelamer Carbonate (Renvela), 1,600 MG PO TIDM Triamcinolone Acetonide (Nasal (Nasacort Allergy 24Hr), 2 SPRAYS MERCEDEZ DAILY Scheduled PRN Saline ([place] Nasal [place]), 2 SPRAYS NA Q1H PRN for Nasal Congestion Sevelamer Carbonate (Renvela), 800 MG PO DAILY PRN for With a Snack Review of Systems Constitutional: No fever, No chills, No sweats Eyes: No worsening of vision ENT: No hearing loss Respiratory: No cough, No sputum, No wheezing, No shortness of breath, No dyspnea on exertion, No dyspnea at rest Cardiovascular: No chest pain Abdomen: No pain, No nausea, No vomiting, No diarrhea, No constipation Musculoskeletal: + problem reported (as noted above ), No joint pain, No muscle pain Genitourinary - Male: + problem reported (anuria) Neurologic: + weakness, No numbness/tingling, No balance problems Psychiatric: No depression symptoms, No anxiety Endocrine: + fatigue Hematologic / Lymphatic: No abnormal bleeding/bruising Integumentary: No rash Allergic / Immunologic: No environmental allergies Physical Exam Vital Signs Date Time Temp Pulse Resp B/P (MAP) Pulse Ox O2 Delivery O2 Flow Rate FiO2 03/21/17 21:27 89 138/85 99 Room Air 03/21/17 17:31 36.6 94 18 144/88 99 Room Air General Appearance: no apparent distress Head: normocephalic, atraumatic Eyes: normal inspection ENT: normal ENT inspection Neck: supple Respiratory/Chest: normal breath sounds, no respiratory distress, no accessory muscle use Cardiovascular: regular rate, rhythm, normal peripheral pulses, + systolic murmur (4/6) Abdomen/GI: normal bowel sounds, non tender, soft Back: normal inspection, no CVA tenderness, normal range of motion Extremities/Musculoskelatal: no calf tenderness, no pedal edema, normal range of motion, + pertinent finding (flistula thrill palpable left arm with 2x2cm palpable abnormalities, not erythematous however colour change reflective of venous stasis, warm to touch) Neurologic/Psych: alert, normal mood/affect, oriented x 3 Skin: normal color, warm/dry, no rash Lymphatic: no adenopathy Diagnostics Laboratory Results Results Past 24 Hours Test 03/21/17 20:35 Range/Units White Blood Count 7.46 4.8-10.8 K/uL Red Blood Count 3.49 4.7-6.1 M/uL Hemoglobin 11.9 14.0-18.0 g/dL Hematocrit 35.2 42-52 % Mean Corpuscular Volume 100.9 80-100 fL Mean Corpuscular Hemoglobin 34.1 25-34 pg Mean Corpuscular Hemoglobin Concent 33.8 32-36 g/dl Platelet Count 146 130-400 K/uL Mean Platelet Volume 9.5 7.4-10.4 fL Neutrophils (%) (Auto) 67.0 % Lymphocytes (%) (Auto) 19.4 % Monocytes (%) (Auto) 8.8 % Eosinophils (%) (Auto) 4.4 % Basophils (%) (Auto) 0.3 % Neutrophils # (Auto) 4.99 1.4-6.5 K/uL Lymphocytes # (Auto) 1.45 1.2-3.4 K/uL Monocytes # (Auto) 0.66 0.11-0.59 K/uL Eosinophils # (Auto) 0.33 0-0.5 K/uL Basophils # (Auto) 0.02 0-0.2 K/uL RDW Standard Deviation 58.0 36.4-46.3 fL RDW Coefficient of Variation 16.0 11.5-14.5 % Immature Granulocyte % (Auto) 0.1 % Immature Granulocyte # (Auto) 0.01 0.00-0.02 K/uL Sodium Level 134 136-145 mmol/L Potassium Level 5.4 3.5-5.1 mmol/L Chloride Level 99 98-107 mmol/L Carbon Dioxide Level 23 21-32 mmol/L Anion Gap 12.0 3-11 mmol/L Blood Urea Nitrogen 56 7-18 mg/dl Creatinine 12.20 0.60-1.40 mg/dl Est Creatinine Clear Calc Drug Dose 8.9 ml/min Estimated GFR () 6.1 Estimated GFR (Non- 5.2 BUN/Creatinine Ratio 4.6 10-20 Random Glucose 89 70-99 mg/dl Calcium Level 9.4 8.5-10.1 mg/dl Diagnostic Radiology DOPPLER ULTRASOUND LEFT UPPER EXTREMITY HEMODIALYSIS ACCESS CLINICAL HISTORY: Left arm pain. Palpable lump. COMPARISON STUDY: No priors. FINDINGS: Real-time, grayscale, and color Doppler sonography of a left upper extremity dialysis fistula is performed. There is extensive nonocclusive thrombus seen throughout the left upper extremity fistula. The fistula is patent. Velocities within the fistula measure up to 260 cm/s. Velocities at the arterial anastomosis measure up to 140 cm/s. No fluid collection is seen within the overlying soft tissues. IMPRESSION: 1. The left upper extremity fistula is patent. 2. Extensive nonocclusive thrombus is present throughout the fistula. This corresponds to the site of palpable concern. EKG Qtc 507, new QS in V2 with persistent QS in V1, no ectopy, no specific changes in T waves Impression Assessment and Plan This is a 21 yo m with a h/o ESRD on IHD for MPGN on MWF that is suffering from a thrombus at fistula site Thrombus in fistula, left arm pain - doxy empirically - ultram for pain control - discussed case with Dr Sierra, NPO after midnight , no heparin drip Prolonged QTc and hyperkalemia - repeat EKG in am as well as BMP - patient has a history of VT secondary to hyperkalemia so low threshold to recheck sooner with EKG and addition of Calcium glu however no conduction concerns/ PVCs noted at this time - held Sertraline and Nortriptyline in light of the QTc and potassium ESRD on IHD - consult nephro - cont sevelamer Depression - held medication as above Hypothyroidism - continue levothy 50 mcg Fe def anemia- BL approx 10 - recheck in am - cont iron supp HTN - Lisinopril held for hyperkal - Carvedilol 25 mg cont bid - Hydralazine 5 mg q6h for sys > 180 while NPO DVT Prophylaxis - discussed heparin drip with Dr Sierra and defer for now, SCD until post op and then reassess for chem prophylaxis with his history of DVT FULL CODE Attending addendum: I have physically seen this patient, have supervised the medical residents activities, and agree with the H&P unless as otherwise noted. Assessment and Plan: Left arm fistula thrombosis/ESRD on IHD for MPGN on Sunday, Sunday and Sunday /mild hyperkalemia 5.4/hypertension-- Dr. Sierra is aware, and requests no anticoagulation tonight. Nothing by mouth after midnight except medications Tylenol for mild pain or temperature Tramadol for moderate pain Empiric antibiotics Continue carvedilol 25 mg by mouth twice a day. Hold lisinopril Hydralazine 5 mg IV every 6 hours when necessary for systolic blood pressure > 180. Long QT interval/hyperkalemia/history of V. tach-- Hold sertraline, nortriptyline and lisinopril. Repeat EKG in a.m. Level of Care Telemetry Advanced Directives Existing Advance Directive: No Existing Living Will: No Existing Power of Icing And Glaze Maker: No Resuscitation Status FULL RESUSCITATION VTE Prophylaxis VTE Risk Assessment Done? Y/N: Yes Risk Level: Low Given or contraindicated: SCD's Social Service Consult Receiving Home Health Note Total Time: Critical Care 30 - 74 minutes
--- NOTE | 2017-03-21 22:36 | EMERGENCY ROOM VISIT NOTE ---
ED Visit Note First contact with patient: 18:52 The patient was seen and examined with Dr. Shin, resident physician. We discussed the case and treatments ordered, reviewed the results, and determine the disposition. Please refer to the resident's note for additional details. I have been directly involved with the management and disposition as well as independently evaluated the patient as documented in this note.
[2017-03-21] MEDS ORDERED: ACETAMINOPHEN 325 MG TAB PO PRN (22:45)
[2017-03-21] MEDS ORDERED: TRAMADOL HCL 50 MG TAB PO PRN (22:45)
[2017-03-21] MEDS ORDERED: NITROGLYCERIN 0.4 MG SL PER TAB CHARGE SL PRN (22:45)
[2017-03-21] MEDS ORDERED: CEFAZOLIN IV 1,000 MG in DEXTROSE 5% 50ML 50 ML IV SCH (22:45)
[2017-03-21] MEDS ORDERED: SEVELAMER HYDROCH 800 MG TAB PO PRN (23:00)
[2017-03-21] MEDS ORDERED: SODIUM CHLORIDE 0.65% NA SOLN 45 ML (OCEAN) PRN (23:00)
[2017-03-21 23:25] VITALS: BP 144/88; PULSE 93; TEMP 36.7; O2SAT 100; Ht 170.2 cm; Wt 61.8 kg
[2017-03-21] MEDS ORDERED: IV FLUIDS COMPLETED PRN (23:30)
[2017-03-21] MEDS ORDERED: CEFTRIAXONE SOD INJ 1 GM in DEXTROSE 5% ADD-VANTAGE 50ML 50 ML IV SCH (23:30)
[2017-03-22] VITALS (18 sets, daily range): BP systolic 84–138; BP diastolic 52–85; PULSE 80–106; TEMP 36.4–36.9; O2SAT 97–100
[2017-03-22] MEDS ORDERED: HydrALAZINE HCL 20 MG/ML VIAL IV. PRN
[2017-03-22 00:07] LABS: ALBUMIN 3.5 gm/dl (3.4-5.0); TOTAL PROTEIN 8.3 gm/dl (6.4-8.2)
[2017-03-22] MEDS: MoRPHine SULFATE 2 MG/ML CARP IV PRN ×5 (00:29→23:32)
[2017-03-22 00:37] LABS: INR 1.1 (0.9-1.1)
[2017-03-22] MEDS ORDERED: NURSING VERBAL MED ORDER ONE (00:45)
[2017-03-22] MEDS: CARVEDILOL 25 MG TAB PO SCH ×3 (01:05→21:40)
[2017-03-22] MEDS: GABAPENTIN 300 MG CAP PO SCH ×2 (01:05→21:40)
[2017-03-22] MEDS ORDERED: DOXYCYCLINE IV 100 MG in DEXTROSE 5% 100ML 100 ML IV ONE (01:26)
[2017-03-22] MEDS: LEVOTHYROXINE 50 MCG TAB PO SCH (05:34)
[2017-03-22] MEDS: GABAPENTIN 100 MG CAP PO SCH ×3 (05:39→17:03)
[2017-03-22] MEDS: SEVELAMER HYDROCH 800 MG TAB PO SCH ×3 (06:03→17:03)
[2017-03-22 06:04] LABS: BASO % 0.6 %; BASO ABS # 0.03 K/uL (0-0.2); EOS % 5.8 %; EOS ABS # 0.31 K/uL (0-0.5); HEMATOCRIT 32.8 % (42-52); HEMOGLOBIN 11.3 g/dL (14.0-18.0); IG# 0.02 K/uL (0.00-0.02); LYMPH % 25.5 %; LYMPH ABS # 1.37 K/uL (1.2-3.4); MEAN CORPUSCULAR HEMOGLOBIN 34.5 pg (25-34); MEAN CORPUSCULAR HGB CONC 34.5 g/dl (32-36); MEAN PLATELET VOLUME 8.9 fL (7.4-10.4); MONO % 13.6 %; MONO ABS # 0.73 K/uL (0.11-0.59); NEUT % 54.1 %; NEUT ABS # 2.92 K/uL (1.4-6.5); PLATELET COUNT 128 K/uL (130-400); RED CELL DISTRIBUTION WIDTH CV 15.5 % (11.5-14.5); RED CELL DISTRIBUTION WIDTH SD 56.7 fL (36.4-46.3); WHITE BLOOD COUNT 5.38 K/uL (4.8-10.8)
[2017-03-22 06:33] LABS: CALCIUM 8.7 mg/dl (8.5-10.1); CREATININE 13.6 mg/dl (0.60-1.40); POTASSIUM 4.9 mmol/L (3.5-5.1)
[2017-03-22] MEDS: AURYXIA~ORDER AWAITING ACTION SCH ×2 (08:00→16:00)
--- NOTE | 2017-03-22 08:06 | Family Medicine Progress Note ---
Progress Note Date of Service Mar 22, 2017. Subjective Pt evaluation today including: conversation w/ patient, physical exam, chart review, lab review, review of studies, conversation w/ chain sales consultant, review of inpatient medication list Patient sleeping but wakes to voice. States that his left arm lump presented a month ago and has been progressively more tender, but "not too bad" currently. He otherwise denies fevers/chills, headaches, CP, palpitations, dyspnea, abdominal pain, lower extremity swelling or rashes. He is tolerating diet without nausea or vomiting, ambulating without exacerbating symptoms, and voiding and stooling appropriately. ROS is unremarkable except as noted above. Objective Vital Signs Date Time Temp Pulse Resp B/P (MAP) Pulse Ox O2 Delivery O2 Flow Rate FiO2 03/22/17 04:08 36.6 94 16 111/67 (82) 98 Room Air 03/22/17 04:00 Room Air 03/21/17 23:59 Room Air 03/21/17 23:25 36.7 93 20 144/88 100 Room Air 03/21/17 22:58 91 140/91 99 03/21/17 21:27 89 138/85 99 Room Air 03/21/17 17:31 36.6 94 18 144/88 99 Room Air Physical Exam General Appearance: WD/WN, no apparent distress Eyes: normal inspection ENT: hearing grossly normal Neck: supple Respiratory/Chest: lungs clear, normal breath sounds, no respiratory distress, no accessory muscle use Cardiovascular: regular rate, rhythm, + systolic murmur (4/6) Abdomen: normal bowel sounds, non tender, soft Extremities: no pedal edema, no calf tenderness, + pertinent finding (left arm fistula with palpable thrill, and 2x2 diameter palpable mass, not erythematous however colour change reflective of venous stasis, warm to touch) Neurologic/Psychiatric: alert, oriented x 3 Skin: warm/dry, no rash Laboratory Results Results Past 24 Hours Test 03/21/17 20:35 03/22/17 00:19 03/22/17 05:20 Range/Units White Blood Count 7.46 5.38 4.8-10.8 K/uL Red Blood Count 3.49 3.28 4.7-6.1 M/uL Hemoglobin 11.9 11.3 14.0-18.0 g/dL Hematocrit 35.2 32.8 42-52 % Mean Corpuscular Volume 100.9 100.0 80-100 fL Mean Corpuscular Hemoglobin 34.1 34.5 25-34 pg Mean Corpuscular Hemoglobin Concent 33.8 34.5 32-36 g/dl Platelet Count 146 128 130-400 K/uL Mean Platelet Volume 9.5 8.9 7.4-10.4 fL Neutrophils (%) (Auto) 67.0 54.1 % Lymphocytes (%) (Auto) 19.4 25.5 % Monocytes (%) (Auto) 8.8 13.6 % Eosinophils (%) (Auto) 4.4 5.8 % Basophils (%) (Auto) 0.3 0.6 % Neutrophils # (Auto) 4.99 2.92 1.4-6.5 K/uL Lymphocytes # (Auto) 1.45 1.37 1.2-3.4 K/uL Monocytes # (Auto) 0.66 0.73 0.11-0.59 K/uL Eosinophils # (Auto) 0.33 0.31 0-0.5 K/uL Basophils # (Auto) 0.02 0.03 0-0.2 K/uL RDW Standard Deviation 58.0 56.7 36.4-46.3 fL RDW Coefficient of Variation 16.0 15.5 11.5-14.5 % Immature Granulocyte % (Auto) 0.1 0.4 % Immature Granulocyte # (Auto) 0.01 0.02 0.00-0.02 K/uL Sodium Level 134 137 136-145 mmol/L Potassium Level 5.4 4.9 3.5-5.1 mmol/L Chloride Level 99 100 98-107 mmol/L Carbon Dioxide Level 23 25 21-32 mmol/L Anion Gap 12.0 12.0 3-11 mmol/L Blood Urea Nitrogen 56 63 7-18 mg/dl Creatinine 12.20 13.60 0.60-1.40 mg/dl Est Creatinine Clear Calc Drug Dose 8.9 7.9 ml/min Estimated GFR () 6.1 5.3 Estimated GFR (Non- 5.2 4.6 BUN/Creatinine Ratio 4.6 4.6 10-20 Random Glucose 89 101 70-99 mg/dl Calcium Level 9.4 8.7 8.5-10.1 mg/dl Total Bilirubin 0.5 0.2-1 mg/dl Direct Bilirubin 0.2 0-0.2 mg/dl Aspartate Amino Transf (AST/SGOT) 28 15-37 U/L Alanine Aminotransferase (ALT/SGPT) 39 12-78 U/L Alkaline Phosphatase 173 45-117 U/L Total Protein 8.3 6.4-8.2 gm/dl Albumin 3.5 3.4-5.0 gm/dl Prothrombin Time 11.1 9.0-12.0 SECONDS Prothromb Time International Ratio 1.1 0.9-1.1 Activated Partial Thromboplast Time 25.0 21.0-31.0 SECONDS Partial Thromboplastin Ratio 1.0 Assessment and Plan 21 yo M with a h/o ESRD on IHD on MWF 2/2 MPGN that is suffering from a thrombus at fistula site Thrombus in fistula, left arm pain - s/p left arm fistula revision - Empiric doxycycline - Ultram, morphine, fentanyl for pain control Prolonged QTc and hyperkalemia - Qtc is 495 - avoid QTc prolonging drugs - held Sertraline and Nortriptyline in light of the QTc and elevated potassium this AM - Patient has history of VT secondary to hyperkalemia so low threshold to recheck sooner with EKG and addition of Calcium gluconate if necessary. No conduction concerns/ PVCs noted at this time ESRD on IHD - Consulted nephro, and patient scheduled for dialysis tonight - Cont Sevelamer Depression - Medication held as above Hypothyroidism - Continue levothyroxine 50 mcg Fe def anemia- BL approx 10 - Cont iron supplementation HTN - Lisinopril held for hyperkalemia - Carvedilol 25 mg BID - Hydralazine 5 mg q6h for sys > 180 while NPO DVT Prophylaxis - SCDs FULL CODE Resident Physician Supervision Note: I interviewed and examined the patient. Discussed with Dr. Alexander and agree with findings and plan as documented in the note. Any exceptions or clarifications are listed here: None Documented By: Jhony Cooper feeling OK on HD. fistula working well post op vitaals noted nad breathing unlabored no pallor or icterus ESRD nonworking fistula hyperkalemia - now doing better Resident Tracking Resident Involvement: Resident Care Provided Care Provided: Adult [facility]
--- NOTE | 2017-03-22 08:11 | History and Physical ---
History & Physical Date Mar 22, 2017. Chief Complaint Left arm swelling of fistula History of Present Illness The patient is a 21 year old male who is on hemodialysis since 15. Had an infiltration of left upper arm fistula. He then developed an erythematous, painful, swelling. No bleeding or drainage. Denies fevers or chills. Vitals Vital Signs Past 12 Hours Date Time Temp Pulse Resp B/P (MAP) Pulse Ox O2 Delivery O2 Flow Rate FiO2 03/22/17 04:08 36.6 94 16 111/67 (82) 98 Room Air 03/22/17 04:00 Room Air 03/21/17 23:59 Room Air 03/21/17 23:25 36.7 93 20 144/88 100 Room Air 03/21/17 22:58 91 140/91 99 03/21/17 21:27 89 138/85 99 Room Air Allergies Coded Allergies: Penicillins (Unverified Allergy, Severe, FACE SWELLS, 12/08/16) Amoxicillin (Verified Allergy, Unknown, ?, 12/08/16) Home Medications Scheduled Carvedilol (Coreg), 50 MG PO BID Ferric Citrate (Auryxia), 420 MG PO TIDM Gabapentin (Neurontin), 100 MG PO Q6H Gabapentin (Neurontin), 300 MG PO HS Levothyroxine Sodium (Levothyroxine Sodium), 50 MCG PO QAM Lisinopril (Lisinopril), 20 MG PO DAILY Nortriptyline (Pamelor), 50 MG PO DAILY Sertraline (Zoloft), 50 MG PO DAILY Sevelamer Carbonate (Renvela), 1,600 MG PO TIDM Triamcinolone Acetonide (Nasal (Nasacort Allergy 24Hr), 2 SPRAYS MERCEDEZ DAILY Scheduled PRN Saline ([place] Nasal [place]), 2 SPRAYS NA Q1H PRN for Nasal Congestion Sevelamer Carbonate (Renvela), 800 MG PO DAILY PRN for With a Snack Problem List Medical Problems: (1) Cardiopulmonary arrest with successful resuscitation (2) Chest pain (3) Chronic renal failure syndrome (4) Diabetic complication (5) Encounter for hemodialysis for ESRD (6) ESRD on hemodialysis (7) History of - hypertension (8) Hyperkalemia (9) Hyperkalemia (10) Hypertension (11) Thrombosis of arteriovenous dialysis fistula Surgical Problems: (1) Aortic dissection (2) Renal transplant, status post Surgical / Medical History Hx Cardiac Surgery: Yes (Aortic dissection repair) Hx Abdominal Surgery: Yes (renal transplant; h/o heart/lung bypass machine) Hx Cancer Surgery: No Hx Thoracic Surgery: No Hx Orthopedic: Yes (LLE for compartment syndrome) Hx Urinary Tract Surgery: Yes (Renal transplant) Past Medical/Surgical History: Kidney Disease Family History Cancer Hypertension Social History Smoking Status: Never Smoker Hx Tobacco Use In Past Year?: No Hx Alcohol Use - Type & Amnt: No Hx Substance Use -Type & Amnt: No Review of Systems Constitutional: No chills, No diaphoresis, No fever, No malaise, No weakness, No weight gain, No weight loss, No sweats, No fatigue, No problem reported Eyes: No discharge, No blurred vision, No double vision, No eye pain, No tearing, No itching, No photophobia, No redness, No visual changes, No dryness, No irritation, No problem reported Respiratory: No cough, No cyanosis, No SAMSON, No hemoptysis, No orthopnea, No PND , No short of breath, No sputum production, No stridor, No wheezing, No dyspnea , No problem reported Cardiovascular: No chest pain, No chest tightness, No chest pressure, No palpitations, No syncope, No diaphoresis, No edema, No intermittent claudication , No orthopnea, No cyanosis, No mumur, No lightheadedness, No paroxysmal nocturnal dyspnea, No problem reported Gastrointestinal: No abdominal pain, No constipation, No diarrhea, No nausea, No vomiting, No anorexia, No appetite changes, No belching, No flatulence, No food intolerance, No hematemesis, No hemorrhoids, No hematochezia, No stool changes, No heartburn, No indigestion, No dysphagia, No rectal bleeding, No problem reported Genitourinary - Male: No impotence, No penile discharge, No penile itching, No rash, No testicular pain, No testicular swelling, No hematuria, No difficulty urinating, No problem reported Musculoskeletal: No back pain, No gout, No joint pain, No joint swelling, No muscle pain, No muscle stiffness, No muscle weakness, No neck pain, No problem reported Neurologic: No dizziness, No weakness, No headache, No lethargy, No numbness, No paresthesia, No pre-existing deficit, No seizures, No tics, No tingling, No tremors, No vertigo, No memory loss, No LOC, No problem reported Psychiatric: No anxiety, No alcohol abuse, No auditory hallucinations, No depression, No drug abuse, No homicidal ideation, No mood changes, No suicidal ideation, No visual hallucinations, No problem reported Physical Exam Constitutional: General Apperance: heathly-appearing, well-nourished, well-developed Level of Distress: NAD Ambulation: ambulating normally Psychiatric: Mental Status: active & alert, normal mood, normal affect Orientation: oriented except where noted, to time, to place, to person Memory: recent memory normal, remote memory normal Head: normocephalic Neck: supple Lungs: Auscultation: breath sounds normal Cardiovascular: Heart Auscultation: RRR Peripheral Pulses: Radial Pulse: normal on the left, normal on the right Femoral Pulse: normal on the left, normal on the right Posterior Tibialis Pulse: normal on the left, normal on the right Dorsalis Pedis Pulse: normal on the left, normal on the right Abdomen: Inspection & Palpation: soft Musculoskeletal: normal Extremities: Upper Right: no cyanosis, no edema, no varicosities, no palpable cord, no clubbing, no ulcers, no mottling Upper Left: no cyanosis, no edema, no varicosities, no palpable cord, no clubbing, no ulcers, no mottling, pertinent finding (erythematous pulsatile mass on mid portion of fistula, no drainage) Lower Right: no cyanosis, no edema, no varicosities, no palpable cord, no clubbing, no ulcers, no mottling Lower Left: no cyanosis, no edema, no varicosities, no palpable cord, no clubbing, no ulcers, no mottling Neurologic: Cranial Nerves: grossly intact Sensation: grossly intact Assessment and Plan 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 I have discussed the risks options and benefits of the procedure with the patient. The patient understands the risks options and benefits and agrees to the procedure. Will plan around 1300 today.
[2017-03-22] MEDS: TRIAMCINOLONE ACET NASAL SPRAY 10.8ML BTL NAE SCH (09:00)
--- NOTE | 2017-03-22 10:03 | Nephrology Consultation ---
Nephrology Consultation Date & Providers Date of Consultation: Mar 22, 2017. 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 He was admitted to hospital for AV fistula revision for pseudoaneurysm. EMR during labs and imaging are reviewed during the visit. Leonard was diagnosed with membranous nephropathy at the age of 16 and he quickly progressed to ESRD. He was maintained on peritoneal dialysis for approximately 3 years before he received a donor renal transplant. He states that his primary disease recurred early following transplant. In the setting of advanced allograft failure, he returned to hemodialysis >1 year ago. He is not interested in home dialysis options. He states that due to the recurrence of his kidney disease he was told that he would not be an acceptable candidate for a second transplant. He denies any history of allograft rejection. He has been maintained on hemodialysis at [facility] under the care of Dr. Palma. Leonard is on dialysis MWF schedule. EDW of 58.5 kg. He reports infiltration at the AV fistula needle site in January, and eventually developed a erythematous painful swelling around the upper part of the AV fistula site. He was advised to go to [place] for AVF revision but he came to [facility] yesterday. He was seen by Dr. artem driscoll and scheduled to have repair of pseudoaneurysm this afternoon. His last dialysis was Sunday and he missed dialysis yesterday. On admission his potassium was elevated which currently improved. He is anuric. Reports decreased p.o. intake over last few days, currently no sign of volume overload, denies shortness of breath or chest pain. Allergies Coded Allergies: Penicillins (Unverified Allergy, Severe, FACE SWELLS, 12/08/16) Amoxicillin (Verified Allergy, Unknown, ?, 12/08/16) Inpatient Medications Current Inpatient Medications Medications (Trade) Dose Ordered Sig/Moises Route Start Time Stop Time Status Last Admin Dose Admin Acetaminophen (Tylenol Tab) 650 mg Q4H PRN PO 03/21/17 22:45 04/20/17 22:44 Nitroglycerin (Nitrostat Tab) 0.4 mg UD PRN SL 03/21/17 22:45 04/20/17 22:44 Morphine Sulfate (MoRPHine SULFATE INJ) 2 mg Q30M PRN IV 03/21/17 22:45 2/7/18 22:44 03/22/17 05:32 2 MG Tramadol HCl (Ultram Tab) 50 mg Q4H PRN PO 03/21/17 22:45 04/20/17 22:44 Carvedilol (Coreg Tab) 50 mg BID PO 03/22/17 09:00 04/21/17 08:59 03/22/17 01:05 50 MG Gabapentin (Neurontin Cap) 100 mg Q6H PO 03/22/17 06:00 04/21/17 05:59 03/22/17 05:39 100 MG Gabapentin (Neurontin Cap) 300 mg HS PO 03/22/17 21:00 04/21/17 20:59 03/22/17 01:05 300 MG Levothyroxine Sodium (Synthroid Tab) 50 mcg DAILYBB PO 03/22/17 06:00 04/21/17 05:59 03/22/17 05:34 50 MCG Sodium Chloride ([place] Nasal [place]) 2 sprays Q1H PRN NA 03/21/17 23:00 04/20/17 22:59 Triamcinolone Acetonide (Nasacort Allergy 24hr) 2 sprays DAILY MERCEDEZ 03/22/17 09:00 04/21/17 08:59 Miscellaneous Information (Order Awaiting Action) 1 ea QS N/A 03/22/17 08:00 04/21/17 07:59 Sevelamer HCl (Renagel Tab) 1,600 mg TIDM PO 03/22/17 07:30 04/21/17 07:59 Sevelamer HCl (Renagel Tab) 800 mg DAILY PRN PO 03/21/17 23:00 04/20/17 22:59 Miscellaneous (Iv Fluids Completed) 1 ea PRN PRN N/A 03/21/17 23:30 03/21/18 23:29 Hydralazine HCl (HydrALAZINE INJ) 5 mg Q6H PRN IV. 03/22/17 00:00 04/21/17 00:00 Doxycycline Hyclate 100 mg/ Dextrose 110 ml @ 50 mls/hr BID@0200,1400 IV 03/22/17 14:00 03/23/17 16:11 Family History Cancer Hypertension Social History Smoking Status: Never Smoker Smokeless Tobacco Use: No Alcohol Use: none Drug Use: none Marital Status: single 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 Review of Systems A complete review of systems was performed. Pertinent positives are noted above. All other systems are negative. Physical Exam Date Time Temp Pulse Resp B/P (MAP) Pulse Ox O2 Delivery O2 Flow Rate FiO2 03/22/17 08:08 36.6 86 20 115/76 (89) 97 Room Air 03/22/17 04:08 36.6 94 16 111/67 (82) 98 Room Air 03/22/17 04:00 Room Air 03/21/17 23:59 Room Air 03/21/17 23:25 36.7 93 20 144/88 100 Room Air 03/21/17 22:58 91 140/91 99 03/21/17 21:27 89 138/85 99 Room Air 03/21/17 17:31 36.6 94 18 144/88 99 Room Air GENERAL: Young male, AAA x 3,, ill-appearing, not in any distress. HEENT: Atraumatic, normocephalic. NECK: Supple, no JVD, no carotid bruit appreciated. ENT: No sinus tenderness MOUTH and THROAT: Moist oral mucosa, no oral ulcer or pharyngeal erythema RESPIRATORY: Normal breathing efforts, no accessory muscle use, clear to auscultation bilaterally, no wheezes or rales. CARDIOVASCULAR: S1, S2 normal, rate rhythm regular. ABDOMEN: Soft, nontender, positive bowel sound. MUSCULOSKELETAL: No CVA tenderness. No joint swelling, erythema or tenderness. Normal range of motion. SKIN: No skin rash EXTREMITY: No lower extremity edema. Left brachiocephalic AV fistula with thrill and bruit, has pulsatile mass with mild erythema around in upper part of the AV fistula NEURO: No gross focal neurological deficit, speech fluent. PSYCHIATRY: Normal mood and judgment Laboratory Results Last 24 Hours Test 03/21/17 20:35 03/22/17 00:19 03/22/17 05:20 White Blood Count 7.46 K/uL 5.38 K/uL Red Blood Count 3.49 M/uL 3.28 M/uL Hemoglobin 11.9 g/dL 11.3 g/dL Hematocrit 35.2 % 32.8 % Mean Corpuscular Volume 100.9 fL 100.0 fL Mean Corpuscular Hemoglobin 34.1 pg 34.5 pg Mean Corpuscular Hemoglobin Concent 33.8 g/dl 34.5 g/dl Platelet Count 146 K/uL 128 K/uL Mean Platelet Volume 9.5 fL 8.9 fL Neutrophils (%) (Auto) 67.0 % 54.1 % Lymphocytes (%) (Auto) 19.4 % 25.5 % Monocytes (%) (Auto) 8.8 % 13.6 % Eosinophils (%) (Auto) 4.4 % 5.8 % Basophils (%) (Auto) 0.3 % 0.6 % Neutrophils # (Auto) 4.99 K/uL 2.92 K/uL Lymphocytes # (Auto) 1.45 K/uL 1.37 K/uL Monocytes # (Auto) 0.66 K/uL 0.73 K/uL Eosinophils # (Auto) 0.33 K/uL 0.31 K/uL Basophils # (Auto) 0.02 K/uL 0.03 K/uL RDW Standard Deviation 58.0 fL 56.7 fL RDW Coefficient of Variation 16.0 % 15.5 % Immature Granulocyte % (Auto) 0.1 % 0.4 % Immature Granulocyte # (Auto) 0.01 K/uL 0.02 K/uL Sodium Level 134 mmol/L 137 mmol/L Potassium Level 5.4 mmol/L 4.9 mmol/L Chloride Level 99 mmol/L 100 mmol/L Carbon Dioxide Level 23 mmol/L 25 mmol/L Anion Gap 12.0 mmol/L 12.0 mmol/L Blood Urea Nitrogen 56 mg/dl 63 mg/dl Creatinine 12.20 mg/dl 13.60 mg/dl Est Creatinine Clear Calc Drug Dose 8.9 ml/min 7.9 ml/min Estimated GFR () 6.1 5.3 Estimated GFR (Non- 5.2 4.6 BUN/Creatinine Ratio 4.6 4.6 Random Glucose 89 mg/dl 101 mg/dl Calcium Level 9.4 mg/dl 8.7 mg/dl Total Bilirubin 0.5 mg/dl Direct Bilirubin 0.2 mg/dl Aspartate Amino Transf (AST/SGOT) 28 U/L Alanine Aminotransferase (ALT/SGPT) 39 U/L Alkaline Phosphatase 173 U/L Total Protein 8.3 gm/dl Albumin 3.5 gm/dl Prothrombin Time 11.1 SECONDS Prothromb Time International Ratio 1.1 Activated Partial Thromboplast Time 25.0 SECONDS Partial Thromboplastin Ratio 1.0 Impression (1) ESRD on hemodialysis (2) Hypertension (3) Hyperkalemia (4) Thrombosis of arteriovenous dialysis fistula (5) Anemia Israel is a 21-year-old gentlemen with end-stage renal disease secondary to membranous nephropathy, failed renal transplant has been on dialysis for last more than a year. 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 Sincere de la cruz. Last dialysis was Sunday. He came to the hospital yesterday and missed dialysis. He had needle infiltration at the fistula site at the end of January and eventually developed erythematous painful swelling. Doppler was positive for nonocclusive thrombus at the AV fistula. His schedule for pseudo aneurysm repair this afternoon.. He is anuric but currently his volume status and blood pressure stable denies any shortness of breath. Potassium was elevated on admission which currently improved. Recommendations --the plan for dialysis today possibly this afternoon after the AV fistula pseudoaneurysm repair. Will dialyze with 2 K bath, UF with goal to reach estimated dry weight. Dialysis order placed in discussed with hemodialysis nurse, will be available for any question or concern during dialysis. --continue on renal diet --avoid IV fluid, dose medications for GFR less than 10 --continue on phosphate binder with meal -- hemoglobin above 11, no need for ZACK at this point Thank you for allowing me to participate in your patient's care. It was a pleasure to see Leonard
[2017-03-22] MEDS ORDERED: PROPOFOL IV EMULSION 10 MG/ML 20 ML VIAL IV ONE (12:17)
[2017-03-22] MEDS ORDERED: FENTANYL CITRATE INJ 50 MCG/1 ML 2 ML VIAL ONE ×2 (12:18→15:20)
[2017-03-22] MEDS ORDERED: MIDAZOLAM HCL 1 MG/ML 2ML VIAL ONE ×2 (12:18→13:43)
[2017-03-22] MEDS ORDERED: GELATIN SPONGE 12-7MM ONE (12:58)
[2017-03-22] MEDS ORDERED: BUPIVACAINE/EPINEPHRINE 0.5% MPF 1:200,000 30 ML VIAL ONE (12:58)
[2017-03-22] MEDS ORDERED: THROMBIN FOR SOLN 20000 UNIT KIT ONE (12:58)
[2017-03-22] MEDS ORDERED: LIDOCAINE HCL 1% 20 ML VIAL ONE (12:58)
[2017-03-22] MEDS ORDERED: HEPARIN SOD (PORCINE) 1000 UNIT/ML 10 ML VIAL ONE ×2 (12:59→14:00)
[2017-03-22] MEDS: DOXYCYCLINE IV 100 MG in DEXTROSE 5% 100ML 100 ML IV SCH (13:41)
[2017-03-22] MEDS ORDERED: PROTAMINE SULFATE 10 MG/ML 5 ML VIAL IV ONE (14:53)
--- NOTE | 2017-03-22 14:57 | [facility] Post Operative Brief Note ---
Immediate Operative Summary Operative Date Mar 22, 2017. Pre-Operative Diagnosis Pseudoaneurysm left upper arm av fistula Post-Operative Diagnosis Pseudoaneurysm left upper arm av fistula Procedure(s) Performed Left arm fistula revision Surgeon Dr. Sierra Internet Architect Surgeon(s) none Estimated Blood Loss 120 Findings Consistent with Post-Op Diagnosis Specimens none per surgeon Drains None Anesthesia Type MAC Complication(s) none Disposition Disposition: Recovery Room / PACU
[2017-03-22] MEDS ORDERED: SODIUM CHLORIDE 0.9% 1000ML 1,000 ML IV SCH (15:00)
[2017-03-22] MEDS ORDERED: ONDANSETRON INJ 2 MG/ML 2 ML VIAL IV PRN ×2 (15:00→15:30)
--- NOTE | 2017-03-22 15:15 | [facility] Operative Report ---
Operative Report Operative Date Mar 22, 2017. Pre-Operative Diagnosis Pseudoaneurysm left upper arm av fistula Post-Operative Diagnosis Pseudoaneurysm left upper arm av fistula Procedure(s) Performed Left arm fistula revision with thrombectomy Surgeon Dr. Sierra Tipple Worker Surgeon(s) none Estimated Blood Loss 120 ml Findings venous pseudoaneurysm left arm av fistula with thrombus in the fistula Specimens none per surgeon Anesthesia MAC Complication(s) None Disposition Recovery Room / PACU Indications This patient's a 21-year-old male who has a venous pseudoaneurysm of his AV fistula of his left upper arm. The skin above was fairly thin with a coring the center. Revision was recommended. I have discussed the risks options and benefits of the procedure with the patient. The patient understands the risks options and benefits and agrees to the procedure. Description of Procedure The patient was taken to the operating room and placed in the supine position. The left arm was then prepped and draped in a sterile manner. Local anesthetic was then administered. An elliptical incision was made around the venous aneurysm. Dissection was carried down along the sides of the fistula above and below the fistula in order to obtain control. Once this was done the dissection was carried around the fistula itself isolating this segment of the fistula. There is a large walnut-sized pseudoaneurysm of the fistula. The fistula was then clamped proximally and distally. The fistula was then opened exposing a dime size hole in the anterior portion of the surface of the fistula leading to the venous aneurysm. Clot was then was expressed from the venous fistula. Once the aneurysm wall was excised a Panfilo catheter was passed upward. Moderate amount of clot was removed. Good backbleeding was seen from the vein. The vein was then flushed. The patient had been given 3000 heparin prior to clamping. We then closed the fistulotomy by extending the opening proximal distally to make a nice smooth contour opening to close with the patch. A bovine patch was then used. It was sewn in place with a running 5-0 Prolene suture.. Prior to completing the closure back bleeding and fore bleeding was allowed to occur. The final few sutures were then placed and securely tied. Clamps were then removed. Excellent flow was seen. eo areas of bleeding between the sutures on the patch were then repaired with a 6-0 Prolene's. Adequate hemostasis was then noted at that time. We freed up the subcutaneous tissue on both sides of the incision to allow coverage of the fistula. The wound was then closed with a running 2-0 Vicryl suture for the subcutaneous layer and monet for the skin. Sterile dressings were applied to the wound. The patient left the operation room in satisfactory condition and tolerated the procedure well. All needle and sponge counts were correct at the end of the procedure. I attest to the content of the Intraoperative Record and any orders documented therein. Any exceptions are noted below.
[2017-03-22] MEDS ORDERED: ATROPINE SULFATE 0.1 MG/ML 5ML SYR IV PRN (15:30)
[2017-03-22] MEDS ORDERED: EpHEDrine SULFATE INJ 50 MG/ML AMP IV PRN (15:30)
[2017-03-22] MEDS ORDERED: FENTANYL CITRATE INJ 50 MCG/1 ML 2 ML VIAL IV PRN (15:30)
--- NOTE | 2017-03-22 16:27 | Anesthesiology Progress Note ---
Anesthesia Post Op Note Date & Time Mar 22, 2017 at 16:27 Vital Signs Pain Intensity: 6 Vital Signs Past 12 Hours Date Time Temp Pulse Resp B/P (MAP) Pulse Ox O2 Delivery O2 Flow Rate FiO2 03/22/17 16:16 82 19 96/64 98 03/22/17 16:16 83 19 03/22/17 16:11 85 14 95/60 03/22/17 16:11 14 03/22/17 16:06 85 16 93/68 03/22/17 16:06 16 03/22/17 16:01 86 16 107/76 03/22/17 16:01 16 03/22/17 16:00 87 16 03/22/17 16:00 36.1 03/22/17 16:00 86 16 97 03/22/17 15:56 113/82 03/22/17 15:55 88 16 03/22/17 15:55 89 16 99 03/22/17 15:51 98/69 03/22/17 15:50 90 16 03/22/17 15:50 90 16 92 03/22/17 15:49 87 14 98 03/22/17 15:49 87 14 03/22/17 15:46 95/67 03/22/17 15:44 85 14 99 03/22/17 15:44 85 14 03/22/17 15:41 103/75 03/22/17 15:39 89 14 95 03/22/17 15:39 87 14 03/22/17 15:38 85 12 98 03/22/17 15:38 85 12 03/22/17 15:36 95/75 03/22/17 15:33 85 12 03/22/17 15:33 84 12 98 03/22/17 15:31 105/78 03/22/17 15:28 14 03/22/17 15:28 80 14 03/22/17 15:27 85 20 03/22/17 15:27 84 20 92 03/22/17 15:26 94/70 03/22/17 15:22 83 21 03/22/17 15:22 83 21 100 03/22/17 15:21 111/71 03/22/17 15:17 86 12 03/22/17 15:17 86 12 100 03/22/17 15:16 110/71 1/25/18 15:12 82 26 100 03/22/17 15:12 82 26 03/22/17 15:11 93/70 03/22/17 15:07 84 18 03/22/17 15:07 36.4 83 16 93/70 100 Oxymask 10 03/22/17 15:07 84 18 100/77 100 03/22/17 12:00 Room Air 03/22/17 11:30 36.5 80 20 102/63 (76) 97 Room Air 03/22/17 08:08 36.6 86 20 115/76 (89) 97 Room Air 03/22/17 08:00 Room Air Notes Mental Status: alert / awake / arousable, participated in evaluation Nausea / Vomiting: adequately controlled Pain: adequately controlled Airway Patency, RR, SpO2: stable & adequate BP & HR: stable & adequate Hydration State: stable & adequate Anesthetic Complications: no major complications apparent
[2017-03-22] MEDS ORDERED: NORTRIPTYLINE HCL 25 MG CAP PO SCH ×2 (21:00)
[2017-03-23] VITALS (19 sets, daily range): BP systolic 88–122; BP diastolic 40–67; PULSE 85–103; TEMP 36.6–37; O2SAT 92–97
[2017-03-23] MEDS: DOXYCYCLINE IV 100 MG in DEXTROSE 5% 100ML 100 ML IV SCH ×2 (01:50→13:53)
[2017-03-23] MEDS ORDERED: NURSING VERBAL MED ORDER ONE ×2 (02:15→10:15)
[2017-03-23] MEDS: GABAPENTIN 100 MG CAP PO SCH ×3 (05:14→13:53)
[2017-03-23] MEDS: LEVOTHYROXINE 50 MCG TAB PO SCH (05:14)
[2017-03-23] MEDS: MoRPHine SULFATE 2 MG/ML CARP IV PRN (05:14)
[2017-03-23 05:55] LABS: HEMATOCRIT 33.5 % (42-52); HEMOGLOBIN 11.1 g/dL (14.0-18.0); MEAN CELL VOLUME 102.4 fL (80-100); MEAN CORPUSCULAR HEMOGLOBIN 33.9 pg (25-34); MEAN CORPUSCULAR HGB CONC 33.1 g/dl (32-36); MEAN PLATELET VOLUME 9.3 fL (7.4-10.4); PLATELET COUNT 126 K/uL (130-400); RED CELL DISTRIBUTION WIDTH CV 15.7 % (11.5-14.5); RED CELL DISTRIBUTION WIDTH SD 58.3 fL (36.4-46.3); WHITE BLOOD COUNT 3.95 K/uL (4.8-10.8)
[2017-03-23 06:53] LABS: CALCIUM 8.6 mg/dl (8.5-10.1); CREATININE 8.88 mg/dl (0.60-1.40); POTASSIUM 4.2 mmol/L (3.5-5.1)
[2017-03-23] MEDS: TRIAMCINOLONE ACET NASAL SPRAY 10.8ML BTL NAE SCH (07:51)
[2017-03-23] MEDS: SEVELAMER HYDROCH 800 MG TAB PO SCH ×2 (07:51→13:52)
[2017-03-23] MEDS: OXYCODONE/ACETAMINOPHEN 5-325 TAB PO PRN ×2 (07:56→13:53)
[2017-03-23] MEDS: AURYXIA~ORDER AWAITING ACTION SCH ×2 (08:00)
[2017-03-23] MEDS: CARVEDILOL 25 MG TAB PO SCH (09:00)
[2017-03-23] MEDS ORDERED: SERTRALINE HCL 50 MG TAB PO SCH (09:00)
[2017-03-23] MEDS ORDERED: DiphenhydrAMINE HCL 50 MG/ML VIAL ONE (10:22)
[2017-03-23] MEDS ORDERED: OXYC-106 PO (12:13)
--- NOTE | 2017-03-23 12:29 | Progress Note ---
Progress Note Date of Service: Mar 23, 2017. Subjective 21 yo m with multiple medical problems, including ESRD on HD through LUE AVF, POD #1 after revision of LUE AVF d/t pseudoaneurysm. Pt admits pain when he moves his arm, but controlled with medications. Pt sleepy d/t medication presently and not interested in answering questions. Per HD nurse, AVF has been running well. Problem List Medical Problems: (1) Acute hyperkalemia Status: Acute (2) Acute renal failure Status: Acute (3) Back pain Status: Acute (4) Bilateral pneumonia Status: Acute (5) Cardiac arrhythmia Status: Acute (6) Creatinine elevation Status: Acute (7) Dehydration Status: Acute (8) ESR raised Status: Acute (9) Fluid overload Status: Acute (10) Hypertensive emergency Status: Acute (11) Intractable vomiting Status: Acute (12) Leukocytosis Status: Acute (13) Nausea vomiting and diarrhea Status: Acute (14) Non-occlusive thrombus Status: Acute (15) Pleural effusion Status: Acute (16) Pneumonia Status: Acute (17) Prolonged QT interval Status: Acute (18) Supratherapeutic INR Status: Acute Social History Problems: (1) Status post kidney transplant Status: Acute Objective Vital Signs Vital Signs Past 12 Hours Date Time Temp Pulse Resp B/P (MAP) Pulse Ox O2 Delivery O2 Flow Rate FiO2 03/23/17 12:20 91 102/49 03/23/17 12:00 96 91/40 03/23/17 11:41 94 102/50 03/23/17 11:24 36.6 92 18 99/54 (69) 95 Room Air 03/23/17 11:20 94 119/56 03/23/17 11:00 96 111/56 03/23/17 10:40 94 122/57 03/23/17 10:20 92 99/51 03/23/17 10:00 85 105/57 03/23/17 09:55 37.0 87 110/59 (76) 03/23/17 09:40 86 110/61 03/23/17 08:00 Room Air 03/23/17 07:32 36.9 92 17 90/57 (68) 96 Room Air 03/23/17 05:04 103 97/63 (74) 03/23/17 04:00 Room Air 1/26/18 03:19 37.0 101 16 88/60 (20) 97 Exam CONST: sleepy, but rouseable to voice, oriented, mildly chronically ill appearing male EXT: LUE AVF revision site with tenderness, mild local edema/hematoma. Dressing in place. HD needles in arm at present. + thrill/bruit. + distal pulses. Laboratory and Microbiology Results Past 24 Hours Test 03/23/17 05:06 Range/Units White Blood Count 3.95 4.8-10.8 K/uL Red Blood Count 3.27 4.7-6.1 M/uL Hemoglobin 11.1 14.0-18.0 g/dL Hematocrit 33.5 42-52 % Mean Corpuscular Volume 102.4 80-100 fL Mean Corpuscular Hemoglobin 33.9 25-34 pg Mean Corpuscular Hemoglobin Concent 33.1 32-36 g/dl RDW Standard Deviation 58.3 36.4-46.3 fL RDW Coefficient of Variation 15.7 11.5-14.5 % Platelet Count 126 130-400 K/uL Mean Platelet Volume 9.3 7.4-10.4 fL Sodium Level 136 136-145 mmol/L Potassium Level 4.2 3.5-5.1 mmol/L Chloride Level 99 98-107 mmol/L Carbon Dioxide Level 31 21-32 mmol/L Anion Gap 6.0 3-11 mmol/L Blood Urea Nitrogen 32 7-18 mg/dl Creatinine 8.88 0.60-1.40 mg/dl Est Creatinine Clear Calc Drug Dose 12.0 ml/min Estimated GFR () 8.9 Estimated GFR (Non- 7.7 BUN/Creatinine Ratio 3.6 10-20 Random Glucose 111 70-99 mg/dl Calcium Level 8.6 8.5-10.1 mg/dl Magnesium Level 2.2 1.8-2.4 mg/dl ASSESSMENT and PLAN: s/p LUE AVF revision Pseudoaneurysm LUE AVF ESRD on HD Pt doing well post op. WIll see in office in 2 wks. May remove dressing tomorrow and leave open to air if dry. Place light dry dressing if continued oozing. Please call if needed.
--- NOTE | 2017-03-23 12:36 | Discharge Instructions ---
Discharge Instructions Date of Service Mar 23, 2017. Admission Reason for Admission: Hyperkalemia, Thrombosis Of Arteriovenous Discharge Discharge Diagnosis / Problem: Pseudoaneurysm of left arm fistula Discharge Goals Goal(s): Decrease discomfort, Improve function, Diagnostic testing, Therapeutic intervention Activity Recommendations Activity Limitations: resume your previous activity . Instructions / Follow-Up Instructions / Follow-Up You had a left upper extremity AV fistula revision You also received 2 rounds of dialysis while in hospital On discharge, - You may remove the arm dressing tomorrow and leave open to air if dry. Place light dry dressing if continued oozing. - Attend hemodialysis as per your recommended regimen - Follow up with vascular surgery in 2 weeks. Someone from clinic should call you with an appointment time. If you have not heard back from them by mid next week, please follow up. - Seek medical care sooner if surgical site becomes redder, increased oozing, worsening pain, fevers. Thank you for allowing us to participate in your care. Current Hospital Diet Patient's current hospital diet: Low Potassium Diet (2g K) Discharge Diet Recommended Diet: Low Potassium Diet (2g K) Procedures Procedures Performed: Left arm fistula revision with thrombectomy Pending Studies Studies pending at discharge: no Medical Emergencies . Who to Call and When: Medical Emergencies: If at any time you feel your situation is an emergency, please call 911 immediately. . Non-Emergent Contact Non-Emergency issues call your: Primary Care Provider, Surgeon . . "Provider Documentation" section prepared by Celeste Alexander. . VTE Core Measure Inpt VTE Proph given/why not?: SCD's [place] Drug Monitoring Program Drug Monitoring Findings: No recent narcotic prescription filled. Resident Tracking Resident Involvement: Resident Care Provided Care Provided: Adult Hospital Medicine
--- NOTE | 2017-03-23 12:39 | Discharge Summary ---
Discharge Summary Date of Service Mar 23, 2017. Discharge Summary Admission Date: Mar 22, 2017 at 18:15 Discharge Date: Mar 23, 2017 Discharge Disposition: Home Principal Diagnosis: Pseudoaneurysm left upper AVF Problems/Secondary Diagnoses: ESRD on HD Immunizations: Have You Had Influenza Vaccine: Unknown History of Tetanus Vaccine?: Unknown History of Pneumococcal: Unknown History of Hepatitis B Vaccine: Unknown Procedures: s/p LUE AVF revision Medication Reconciliation New Medications: Oxycodone/Acetaminophen 10MG/325MG (Percocet 10MG/325MG) Tab 1 TAB PO Q4H PRN for Pain, #14 TAB Continued Medications: Carvedilol (Coreg) 25 Mg Tab 50 MG PO BID Ferric Citrate (Auryxia) 210 Mg Tab 420 MG PO TIDM Gabapentin (Neurontin) 100 Mg Cap 100 MG PO Q6H Gabapentin (Neurontin) 300 Mg Cap 300 MG PO HS, CAP Levothyroxine Sodium (Levothyroxine Sodium) 50 Mcg Tab 50 MCG PO QAM, TAB Lisinopril (Lisinopril) 20 Mg Tab 20 MG PO DAILY Nortriptyline (Pamelor) 50 Mg Cap 50 MG PO DAILY Saline ([place] Nasal [place]) 0.65 % Spr 2 SPRAYS NA Q1H PRN for Nasal Congestion Sertraline (Zoloft) 50 Mg Tab 50 MG PO DAILY Sevelamer Carbonate (Renvela) 800 Mg Tab 1600 MG PO TIDM Sevelamer Carbonate (Renvela) 800 Mg Tab 800 MG PO DAILY PRN for With a Snack Triamcinolone Acetonide (Nasal (Nasacort Allergy 24Hr) 55 Mcg/Act Spr 2 SPRAYS MERCEDEZ DAILY Discharge Exam Patient sleeping but wakes to voice. States that his left is tender at surgical site and adjacent tissue. Denies numbness or tingling. He otherwise denies fevers/chills, headaches, CP, palpitations, dyspnea, abdominal pain, lower extremity swelling or rashes. He is tolerating diet without nausea or vomiting, ambulating without exacerbating symptoms, and voiding and stooling appropriately. ROS is unremarkable except as noted above. Physical Exam General Appearance: WD/WN, no apparent distress Eyes: normal inspection ENT: hearing grossly normal Neck: supple Respiratory/Chest: lungs clear, normal breath sounds, no respiratory distress, no accessory muscle use Cardiovascular: regular rate, rhythm, + systolic murmur (4/6) Abdomen: normal bowel sounds, non tender, soft Extremities: no pedal edema, no calf tenderness, + pertinent finding (dressing around AV fistula is dry. 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 Place light dry dressing if continued oozing. - Given script for short supply of Percocet after confirmation of records on PDMP - Follow up with vascular surgery in 2 weeks. Clinic will call with appointment time. - Patient advised to seek medical care sooner if surgical site becomes redder, increased oozing, worsening pain, fevers. ESRD on IHD + Prolonged QTc (495) and hyperkalemia due to patient missing last dialysis session Patient has history of VT secondary to hyperkalemia so kept low threshold to recheck sooner with EKG and addition of calcium gluconate if necessary. No conduction concerns/ PVCs noted during admission - Consulted nephro, and patient scheduled for dialysis x 2 sessions while in hospital - Held home QTc prolonging medications (sertraline and nortriptyline) in interim - On discharge, advised to resume home meds and attend hemodialysis as per regular regimen - Continue Sevelamer Depression - Resume sertraline and nortriptyline Hypothyroidism - Continue levothyroxine 50 mcg Fe def anemia - baseline Hb ~10 - Continue iron supplementation HTN - Lisinopril held for hyperkalemia. May resume on discharge - Continue carvedilol 25 mg BID DVT Prophylaxis - SCDs FULL CODE Resident Physician Supervision Note: I interviewed and examined the patient. Discussed with Dr. Alexander and agree with findings and plan as documented in the note. Any exceptions or clarifications are listed here: None Documented By: Jhony Cooper feeling better wants to go home ok w vascular ok w nephro vitals noted nad breathing unlabored no pallor or icterus ESRD, fistula pseudoaneurysm -stable for discharge as above Total Time Spent: Less than 30 minutes This includes examination of the patient, discharge planning, medication reconciliation, and communication with other providers. Discharge Instructions Please refer to the electronic Patient Visit Report (Discharge Instructions) for additional information. Additional Copies To Lebron Chu D.O. Resident Tracking Resident Involvement: Resident Care Provided Care Provided: [facility]
--- NOTE | 2017-03-23 14:15 | Nephrology Progress Note ---
Nephrology Progress Note Date of Service Mar 23, 2017. Chief Complaint Follow-up for end-stage renal disease on hemodialysis. Hamilton Russ was seen and examined in his room this morning. Has been otherwise doing well. Had pseudoaneurysm of the AV fistula repair yesterday procedure went uneventful, had dialysis after that. Is due for dialysis today as his regular schedule. Review of Systems A complete review of systems was performed. Pertinent positives are noted above. All other systems are negative. Vital Signs Last 8 Hrs Date Time Temp Pulse Resp B/P (MAP) Pulse Ox O2 Delivery O2 Flow Rate FiO2 03/23/17 07:32 36.9 92 17 90/57 (68) 96 Room Air 03/23/17 05:04 103 97/63 (74) 03/23/17 04:00 Room Air 03/23/17 03:19 37.0 101 16 88/60 (69) 97 Last Recorded Weight Weight (Kilograms): 63.900 Physical Exam GENERAL: Young male, AAA x 3, pleasant, healthy-appearing, not in any distress. NECK: Supple, no JVD. RESPIRATORY: Normal breathing efforts, no accessory muscle use, clear to auscultation bilaterally, no wheezes or rales. CARDIOVASCULAR: S1, S2 normal, rate rhythm regular. EXTREMITY: No lower extremity edema NEURO: speech fluent. PSYCHIATRY: Normal mood and judgment Family History Cancer Hypertension Social History Smoking Status: Never smoker Smokeless Tobacco Use: No Alcohol Use: none Drug Use: none Marital Status: single 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 Laboratory Results Past 24 Hours 03/23/17 05:06 03/23/17 05:06 Test 03/23/17 05:06 Red Blood Count 3.27 M/uL (4.7-6.1) Mean Corpuscular Volume 102.4 fL (80-100) Mean Corpuscular Hemoglobin 33.9 pg (25-34) Mean Corpuscular Hemoglobin Concent 33.1 g/dl (32-36) RDW Standard Deviation 58.3 fL (36.4-46.3) RDW Coefficient of Variation 15.7 % (11.5-14.5) Mean Platelet Volume 9.3 fL (7.4-10.4) Anion Gap 6.0 mmol/L (3-11) Est Creatinine Clear Calc Drug Dose 12.0 ml/min Estimated GFR () 8.9 Estimated GFR (Non- 7.7 BUN/Creatinine Ratio 3.6 (10-20) Calcium Level 8.6 mg/dl (8.5-10.1) Magnesium Level 2.2 mg/dl (1.8-2.4) Allergies Coded Allergies: Penicillins (Unverified Allergy, Severe, FACE SWELLS, 12/08/16) Amoxicillin (Verified Allergy, Unknown, ?, 12/08/16) Medications Current Inpatient Medications Medications (Trade) Dose Ordered Sig/Moises Route Start Time Stop Time Status Last Admin Dose Admin Acetaminophen (Tylenol Tab) 650 mg Q4H PRN PO 03/21/17 22:45 04/20/17 22:44 Nitroglycerin (Nitrostat Tab) 0.4 mg UD PRN SL 03/21/17 22:45 04/20/17 22:44 Morphine Sulfate (MoRPHine SULFATE INJ) 2 mg Q30M PRN IV 03/21/17 22:45 04/04/17 22:44 03/23/17 05:14 2 MG Tramadol HCl (Ultram Tab) 50 mg Q4H PRN PO 03/21/17 22:45 04/20/17 22:44 Carvedilol (Coreg Tab) 50 mg BID PO 03/22/17 09:00 04/21/17 08:59 03/22/17 21:40 50 MG Gabapentin (Neurontin Cap) 100 mg Q6H PO 03/22/17 06:00 04/21/17 05:59 03/23/17 05:14 100 MG Gabapentin (Neurontin Cap) 300 mg HS PO 03/22/17 21:00 04/21/17 20:59 03/22/17 21:40 300 MG Levothyroxine Sodium (Synthroid Tab) 50 mcg DAILYBB PO 03/22/17 06:00 04/21/17 05:59 03/23/17 05:14 50 MCG Sodium Chloride ([place] Nasal [place]) 2 sprays Q1H PRN NA 03/21/17 23:00 04/20/17 22:59 Triamcinolone Acetonide (Nasacort Allergy 24hr) 2 sprays DAILY MERCEDEZ 03/22/17 09:00 04/21/17 08:59 03/23/17 07:51 2 SPRAYS Miscellaneous Information (Order Awaiting Action) 1 ea QS N/A 03/22/17 08:00 04/21/17 07:59 Sevelamer HCl (Renagel Tab) 1,600 mg TIDM PO 03/22/17 07:30 04/21/17 07:59 03/23/17 07:51 1,600 MG Sevelamer HCl (Renagel Tab) 800 mg DAILY PRN PO 03/21/17 23:00 04/20/17 22:59 Miscellaneous (Iv Fluids Completed) 1 ea PRN PRN N/A 03/21/17 23:30 03/21/18 23:29 Hydralazine HCl (HydrALAZINE INJ) 5 mg Q6H PRN IV. 03/22/17 00:00 04/21/17 00:00 Doxycycline Hyclate 100 mg/ Dextrose 110 ml @ 50 mls/hr BID@0200,1400 IV 03/22/17 14:00 03/23/17 16:11 03/23/17 01:50 50 MLS/HR Oxycodone/ Acetaminophen (Percocet 5-325mg Tab) `1-2 TABS FOR MODER... 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 He has been on hemodialysis on Sunday, Sunday, Sunday at [facility], primary speech and hearing director Dr. Sincere de la cruz. Last dialysis was Sunday. He came to the hospital yesterday and missed dialysis. He had needle infiltration at the fistula site at the end of January and eventually developed erythematous painful swelling. Doppler was positive for nonocclusive thrombus at the AV fistula. His schedule for pseudo aneurysm repair this afternoon.. He is anuric but currently his volume status and blood pressure stable denies any shortness of breath. Potassium was elevated on admission which currently improved. Recommendations --plan for dialysis today as his regular schedule, aim for UF 1 liter. --continue on renal diet --avoid IV fluid, dose medications for GFR less than 10 --continue on phosphate binder with meal -- hemoglobin above 11, no need for ZACK at this point Okay to be discharged if patient clinically otherwise stable. Will follow
== END 2017-03-23 16:30 | disposition home or self-care (01) | DRG 252 ==
LOC: C.EDB 17:25 → C.2T 22:39 → ENRESERV 22:45 → EDBEDREQ 22:46 → OBSVTOIN 03-22 18:15
PROVIDERS: ADMIT Hospitalist; ATTEND Family Medicine
PROC: 05WY03Z Revision of Infusion Device in Upper Vein, Open Approach (ICD-10-PCS; principal; 2017-03-22 10:30)
PROC: 05U Upper Veins, Supplement (ICD-10-PCS; principal; 2017-03-22 10:30)
PROC: 05CY0ZZ Extirpation of Matter from Upper Vein, Open Approach (ICD-10-PCS; principal; 2017-03-22 10:30)
DX: T82.868A Thrombosis due to vascular prosthetic devices, implants and grafts, initial encounter (principal); N18.6 End stage renal disease; I12.0 Hypertensive chronic kidney disease with stage 5 chronic kidney disease or end stage renal disease; E87.5 Hyperkalemia; F32.9 Major depressive disorder, single episode, unspecified; E03.9 Hypothyroidism, unspecified; D50.9 Iron deficiency anemia, unspecified; Z79.899 Other long term (current) drug therapy; Z99.2 Dependence on renal dialysis; Z88.1 Allergy status to other antibiotic agents; Y84.8 Other medical procedures as the cause of abnormal reaction of the patient, or of later complication, without mention of misadventure at the time of the procedure

== ENCOUNTER 2017-05-13 23:15 | Inpatient (IN) | payer OTHER ==
[~2017-05-13] VITALS: Ht 170.2 cm; Wt 62.0 kg
[2017-05-13 00:45] VITALS: BP 155/89; PULSE 96; TEMP 36.4
[~2017-05-13 23:15] MED LIST changes: +FERR1TAB68 PO; +GABA-113 PO; -LEVO50TA PO; +LEVO50TA6 PO; +OXYC-106 PO
[2017-05-13] MEDS ORDERED: LIDOCAINE 2% 20 MG/ML 5ML SYR IV ONE (23:22)
[2017-05-13] MEDS ORDERED: ALBUTEROL 0.5% NEB SOLN 2.5 MG/0.5 ML VIAL INH ONE (23:28)
[2017-05-13] MEDS ORDERED: ALBUTEROL 0.083% NEBU SOLN 3 ML VIAL INH ONE (23:28)
[2017-05-13 23:35] VITALS: PULSE 190; O2SAT 100
[2017-05-13] MEDS ORDERED: NovoLIN-R INSULIN PER UNIT CHARGE IV STA (23:38)
[2017-05-13] MEDS ORDERED: DEXTROSE 50% 50 ML SYR IV STA (23:38)
[2017-05-13] MEDS ORDERED: NovoLIN-R INSULIN PER UNIT CHARGE ONE (23:42)
[2017-05-14] VITALS (64 sets, daily range): BP systolic 98–170; BP diastolic 67–106; PULSE 92–128; TEMP 36.3–37.5; O2SAT 88–100; Ht 170.2 cm; Wt 62.0 kg
--- NOTE | 2017-05-14 00:04 | EMERGENCY ROOM VISIT NOTE ---
History Report prepared by Anthony: Lamont Field Under the Supervision of: Dr. Anila Caballero D.O. First contact with patient: 23:22 Chief Complaint: ALTERED MENTAL STATUS Stated Complaint: ALTERED MENTAL STATUS History of Present Illness The patient is a 22 year old male who presents to the Emergency Room with complaints of constant AMS beginning tonight. Per EMS, the patient is a dialysis patient s/p renal transplant. He notes that during transport, the patient was bradycardic and hypotensive. He reports that the patient needed to be paced. The had difficulty obtaining IV access and an IO was placed in the patient's right shoulder. EMS reports patient had abnormal rhythms on their EKG tracings throughout. The patient states that his last dialysis was 2 days ago, and that he has not missed any treatments. He notes that he initially started feeling sick this morning. States he vomited several times, denies diarrhea, denies fevers or chills. Per mom, the patient's blood pressure was also low this morning. The patient reports that he did not take his blood pressure medication today. He also complains of leg pain, vomiting, weakness, and numbness in his legs. He denies any SOB and fever. He reports that he has had a similar episode where his potassium was high and required emergent dialysis. HPI limited secondary to clinical condition in significant distress. Source of History: patient History Limited By: other (clinical condition) Onset: tonight Position: head Quality: other (AMS) Timing: constant Associated Symptoms: + vomiting, + weakness, + numbness, No fevers, No SOB Note: Per EMS, the patient was bradycardic and hypotensive. The patient also complains of leg pain. Review of Systems ROS limited secondary to clinical condition. Past Medical & Surgical Medical Problems: (1) Altered mental status (2) Cardiopulmonary arrest with successful resuscitation (3) Chest pain (4) Chronic renal failure syndrome (5) Diabetic complication (6) Encounter for hemodialysis for ESRD (7) ESRD on hemodialysis (8) History of - hypertension (9) Hyperglycemia (10) Hyperkalemia (11) Hyperkalemia (12) Hypertension (13) Hypotension (14) Thrombosis of arteriovenous dialysis fistula (15) Thrombosis of arteriovenous dialysis fistula (16) Wide-complex tachycardia Surgical Problems: (1) Aortic dissection (2) Renal transplant, status post Family History Cancer Hypertension Social History Smoking Status: Never Smoker Alcohol Use: none Drug Use: none Marital Status: single Housing Status: lives with family Occupation Status: student Current/Historical Medications Scheduled Atorvastatin (Lipitor), 40 MG PO QPM Carvedilol (Coreg), 50 MG PO BID Cholecalciferol (Vitamin D3), 1 TAB PO DAILY Ferric Citrate (Auryxia), 420 MG PO TIDM Gabapentin (Neurontin), 200 MG PO QAM Gabapentin (Neurontin), 300 MG PO HS Levothyroxine Sodium (Levothyroxine Sodium), 50 MCG PO QAM Lisinopril (Zestril), 40 MG PO DAILY Sertraline (Zoloft), 50 MG PO DAILY Sevelamer Carbonate (Renvela), 1,600 MG PO TIDM Scheduled PRN Nortriptyline (Pamelor), 50 MG PO DAILY PRN for UNDECIDED Sevelamer Carbonate (Renvela), 800 MG PO DAILY PRN for With a Snack Allergies Coded Allergies: Penicillins (Unverified Allergy, Severe, FACE SWELLS, 05/14/17) Amoxicillin (Verified Allergy, Unknown, ?, 05/14/17) Physical Exam Vital Signs Date Time Temp Pulse Resp B/P (MAP) Pulse Ox O2 Delivery O2 Flow Rate FiO2 05/14/17 00:31 148/90 05/14/17 00:31 97 148/90 (109) 99 05/14/17 00:30 100 100 05/14/17 00:25 99 14 96 05/14/17 00:24 146/88 05/14/17 00:24 98 19 146/88 (107) 96 05/14/17 00:20 98 15 98 05/14/17 00:16 94 05/14/17 00:15 97 16 100 05/14/17 00:10 92 20 98 05/14/17 00:05 93 24 100 05/14/17 00:00 180 35 99 Non-Rebreather 05/13/17 23:58 83 05/13/17 23:56 176/114 05/13/17 23:55 121 13 100 05/13/17 23:53 166 05/13/17 23:50 137 35 60 05/13/17 23:45 149 32 100 05/13/17 23:40 172 28 98 05/13/17 23:35 193 05/13/17 23:35 190 30 100 Partial Rebreather 15.0 05/13/17 23:30 118 14 05/13/17 23:28 /109 05/13/17 23:25 91 20 05/13/17 23:24 47 05/13/17 23:20 89 29 100 05/13/17 23:20 88 05/13/17 00:45 Physical Exam GENERAL: alert, ill appearing, no distress, pale, diaphoretic, complaining of nausea and pain EYE EXAM: normal conjunctiva, PERRL and EOM's grossly intact OROPHARYNX: no exudate, no erythema, lips, buccal mucosa, and tongue normal and mucous membranes are moist, dry MM. NECK: supple, no nuchal rigidity, no adenopathy, non-tender, well healed scars from prior IV insertions. LUNGS: Clear to auscultation. Normal chest wall mechanics, decreased, no wheezes , rhonchi, rales. HEART: no murmurs, S1 normal and S2 normal, fast and regular. CHEST: Multiple well healed surgical scars. ABDOMEN: abdomen soft, normo-active bowel sounds, no masses, no rebound or guarding, generalized discomfort. Multiple well healed surgical scars. BACK: Back is symmetrical on inspection and there is no deformity, no midline tenderness, no CVA tenderness. SKIN: no rashes and no bruising UPPER EXTREMITIES: upper extremities are grossly normal. IO in the right humeral head. LOWER EXTREMITIES: No pitting edema. Scars noted from prior IV placement, no deformities, normal pulses. NEURO EXAM: Normal sensorium, cranial nerves II-XII grossly intact, normal speech, no gross weakness of arms, no gross weakness of legs. Awake and oriented, moves all extremities spontaneously, no other neuro testing done due to clinical condition. Medical Decision & Procedures ER Provider Diagnostic Interpretation: Radiology results have been interpreted by the radiologist and reviewed by me. CHEST ONE VIEW PORTABLE FINDINGS: Stable cardiomegaly. Prior median sternotomy. Diaphragms smooth. Lungs are considered clear. Minimal plate like atelectasis left base. IMPRESSION: Moderate stable cardiomegaly. Minimal atelectasis left base. The above report was generated using voice recognition software. It may contain grammatical, syntax or spelling errors. Electronically signed by: Gary Chun M.D. 05/14/2017 6:57 AM Laboratory Results Test 05/14/17 00:01 05/14/17 00:09 Bedside Hemoglobin 13.3 g/dl (14.0-18.0) Bedside Hematocrit 39 % (42-52) Bedside Sodium 128 mEq/L (135-144) Bedside Potassium > 9.0 mEq/L (3.3-5.0) Bedside Chloride 94 mEq/L (101-112) Bedside Total CO2 28 mEq/l (24-31) Bedside Blood Urea Nitrogen 83 mg/dl (7-18) Bedside Creatinine 10.3 mg/dl (0.6-1.3) Bedside Glucose (other) 537 mg/dl (70-99) Bedside Ionized Calcium (Haider) 1.08 mmol/l (1.12-1.32) Immature Granulocyte % (Auto) 0.3 % White Blood Count 7.63 K/uL (4.8-10.8) Red Blood Count 4.02 M/uL (4.7-6.1) Hemoglobin 13.1 g/dL (14.0-18.0) Hematocrit 38.9 % (42-52) Mean Corpuscular Volume 96.8 fL (80-100) Mean Corpuscular Hemoglobin 32.6 pg (25-34) Mean Corpuscular Hemoglobin Concent 33.7 g/dl (32-36) Platelet Count 176 K/uL (130-400) Mean Platelet Volume 10.0 fL (7.4-10.4) Neutrophils (%) (Auto) 64.9 % Lymphocytes (%) (Auto) 29.5 % Monocytes (%) (Auto) 2.6 % Eosinophils (%) (Auto) 2.4 % Basophils (%) (Auto) 0.3 % Neutrophils # (Auto) 4.96 K/uL (1.4-6.5) Lymphocytes # (Auto) 2.25 K/uL (1.2-3.4) Monocytes # (Auto) 0.20 K/uL (0.11-0.59) Eosinophils # (Auto) 0.18 K/uL (0-0.5) Basophils # (Auto) 0.02 K/uL (0-0.2) Immature Granulocyte # (Auto) 0.02 K/uL (0.00-0.02) Red Blood Cell Morphology Unremarkable Total Bilirubin 0.9 mg/dl (0.2-1) Aspartate Amino Transf (AST/SGOT) 30 U/L (15-37) Alanine Aminotransferase (ALT/SGPT) 41 U/L (12-78) Alkaline Phosphatase 134 U/L (45-117) Troponin I 0.016 ng/ml (0-0.045) Pro-B-Type Natriuretic Peptide > 56014 pg/ml (0-450) Total Protein 7.6 gm/dl (6.4-8.2) Albumin 3.4 gm/dl (3.4-5.0) Globulin 4.2 gm/dl (2.5-4.0) Albumin/Globulin Ratio 0.8 (0.9-2) Laboratory results per my review. Medications Administered Medications (Trade) Dose Ordered Sig/Moises Route Start Time Stop Time Status Last Admin Dose Admin Lidocaine HCl (Lidocaine 2% 20MG/Ml Syringe) 100 mg STK-MED ONCE IV 05/13/17 23:22 05/13/17 23:23 DC 05/13/17 23:22 100 MG Albuterol Sulfate (Ventolin 0.5% 2.5MG/0.5ML Neb) 7.5 mg STK-MED ONCE INH 05/13/17 23:28 05/13/17 23:29 DC 05/13/17 23:47 7.5 MG Albuterol Sulfate (Ventolin 0.083% 2.5MG/3ML Neb) 2.5 mg STK-MED ONCE INH 05/13/17 23:28 05/13/17 23:29 DC 05/13/17 23:47 2.5 MG Insulin Human Regular (novoLIN-R U-100 PER UNIT) 10 units NOW STAT IV 05/13/17 23:38 05/13/17 23:42 DC 05/13/17 23:45 10 UNITS Dextrose (Dextrose 50% 50ML Syringe) 50 ml NOW STAT IV 05/13/17 23:38 05/13/17 23:42 DC 05/13/17 23:45 50 ML Fentanyl Citrate (Fentanyl Inj) 50 mcg NOW STAT IV 05/14/17 00:25 05/14/17 00:27 DC 05/14/17 00:33 50 MCG Lorazepam (Ativan Inj) 0.5 mg Q4H PRN IV 05/14/17 00:30 06/13/17 00:29 05/14/17 05:51 0.5 MG Procedure Central Venous Catheter Indication: Emergent implied consent, need for central access. Catheter type: Triple lumen catheter Location: Right femoral head Verbal consent was obtained after the risks and benefits were explained, including but not limited to pneumothorax, hemothorax, vessel injury, bleeding, scarring, infection, pain, and bone/joint/nerve damage. At this time, the risks of the procedure are less than the risks of NOT performing the procedure. A time out was taken and the correct patient and site identified. The patient was placed in the supine position with right lower extremity abducted and externally rotated and the skin was prepped in the standard fashion with chlorhexidine and full sterile drapes applied. The proper landmarks were identified with ultrasound, anesthetized with 1% lidocaine without epinephrine, and the needle was inserted through the skin in the standard fashion. The needle was carefully advanced into blood vessel lumen under ultrasound guidance. The guidewire was placed uneventfully. The vessel is dilated and the catheter was placed. It was sutured into position. There was good blood return from all ports. The patient tolerated the procedure well and there were no complications. Post procedure x-ray was normal. ED Course 2315: The patient was brought in via EMS and evaluated in room A1. A complete history and physical exam was performed. Per EMS, the patient was bradycardic and hypotensive at 67/38 during transport. He states that the patient had to be paced. He notes that the patient had an IO placed in his shoulder but has only received a small amount of lidocaine. He reports that the patient was complaining of mild leg pain and that EMS was called due to the patient's AMS. Patient significant distress, tachycardic, with abnormal rhythm noted on telemetry and abnormal initial prehospital tracings. classroom monitor pads placed on the patient is a precaution. 2316: The patient states that he has not missed any dialysis treatments and notes that his last treatment was 2 days ago. He reports that he started feeling sick this morning and vomited a little today. He denies any SOB and fever. The patient states that he has not had any recent change to his medication. He notes that he feels weak and numb. 2318: The patient states that he has had a similar episode. He notes that his potassium was high and that he has previously required emergent dialysis. The patient's IO in his shoulder was pulled out accidentally by nursing staff. 2321: An EKG was taken. 2322: The patient had an IO placed in his right tibia. Good positioning, marrow unable to be aspirated, however flushed easily. Due to need for emergent access, medications were given through this IO. Patient's leg was checked after each push of medication, no swelling noted, no bleeding, no increasing tightness to the right lower extremity compartments. This was used until a central line was placed. The patient has received 80ml of lidocaine between EMS and nursing staff for local anesthesia for placement of I/O. 2323: The patient received 2 amps bicarb and 2 amps calcium. 2326: I ordered albuterol for the patient. The patient started to become tachycardic at 190. 2329: The patient started vomiting. 2336: The patient states that he cannot feel his feet. He notes that his kidney transplant was on the right side. He states the sensations happen before. 2337: I spoke to Dr. King - Nephrology, [facility]. He states that he would like to know the patient's potassium level before calling in the team for emergent dialysis. I ordered Dextrose and 10 units of insulin. 2338: Dextrose 50ml IV, Insulin Human Regular 10 units IV 2347: A central line was placed with emergency verbal consent. A repeat EKG was taken. I obtained a blood sample for an i-STAT. During the procedure, patient' s rhythm began to improve and QRS began to narrow, heart rate began to slow. 2357: The patient's blood pressure was taken and noted to be 176/114. 0001: I spoke to the patient's mother. She states that the patients BP was low this morning. The patient notes that he did not take his blood pressure medication. i-STAT showed that the patient's potassium levels are greater than 9. Mother was made aware of need for emergent dialysis and patient's condition. 0008: Discussed with Dr. King to emergently dialyze the patient. He will evaluate the patient discussed with the patient and mother. He has called his dialysis nurse. 0016: Discussed the patient's case with Mishel Liu - Stretch Box Tender [facility]. She states that her attending is Dr. Suazo. 0020: Discussed the patient's case with Dr. Costa - Hospitalist, [facility]. 0025: Fentanyl Citrate 50mcg IV 0031: Discussed the patient's case again with Mishel Liu - Stretch Box Tender [facility] , [facility]. 0033: I reevaluated and updated the patient. 0054: Upon reevaluation, the patient is stable. I discussed the findings and the treatment plan with the patient. He expresses agreement and understanding. I spoke with Dr. Costa of the [facility] Hospitalist Service. The patient will be evaluated for further management. Medical Decision Differential diagnosis: Etiologies such as metabolic, infection, hypo/hyperglycemia, electrolyte abnormalities, cardiac sources, intracerebral event, toxicologic, neurologic, as well as others were entertained. Upon initial presentation the emergency room creation severely ill and found to have a wide-complex tachycardia and in extreme distress. Difficulty initially obtaining IV access and given brief history initially obtained as well as obvious prior scars from multiple IV sites, I have placed in the right tibia after nursing accidentally pulled out the IO in the right humerus. It was later found that this may have been because an inappropriate needle size was used and no stabilization dressing had been placed. I have placed on the right proximal tibia with ease, lidocaine used for anesthesia, while no marrow was initially able to be aspirated the area flushed and there is no additional leg swelling or change in exam findings to suggest extravasation or compartment syndrome in the lower extremity. This IO site was used until a central line was placed in the right femoral region. Patient had not received any medications prior to arrival in the ED, upon placement of the IOL patient was immediately given calcium and bicarb given the wide complex tachycardia. While the complex mimic the appearance of V. tach, patient was awake and talking with the pulse the entire time and once there was discussion from EMS regarding the patient's renal history, the assumption was made that this is most likely due to an electrolyte abnormality, most likely hyperkalemia. Patient had persistent vomiting here, however no antiemetics were given due to critical nature of situation and need for other medications to be given to stabilize the patient's heart rate and hyperkalemia. IV team called to help with obtaining blood samples, however than they were unsuccessful. Due to the need for labs as well as additional access, I placed a triple-lumen catheter in the patient's right femoral vein. This was done under ultrasound, please refer to my procedure note for additional details. Patient tolerated this well and there were no apparent complications. Labs were sent. By the time of this procedure , a second round of calcium and bicarb had been given through the IO, patient was already receiving albuterol nebulizer treatment, and then during the procedure was given insulin and dextrose to again help shift his potassium. During the procedure, it was noted that the patient's wide-complex tachycardia slowly began to narrow and the heart rate began to improve. Patient was not given additional IV fluids initially due to concern for volume overload given his renal status. Due to the critical nature of the patient I was unable to review the EMR, however patient stated this had happened previously. Nephrology was contacted even prior to lab results due to concern for patient's condition and need for emergent dialysis. Upon improvement of wide-complex tachycardia, patient began to note that he felt improved. Patient able to then give some additional history. Mother then updated on patient's condition upon her arrival and she was able to provide additional history regarding prior similar episodes in the patient as well as his additional extensive renal and cardiac history. I discussed the case with nephrology twice as well as the ICU physician sales assistant institutional sales twice to assure the patient could probably be admitted to the intensive care unit for emergent dialysis and that all necessary orders and equipment were present. I then notified the [facility]ist of the admission also. Patient's repeat telemetry strips and EKGs were markedly improved and patient showed great clinical improvement compared to initial presentation. I spent significant time on the care and medical decision making of this patient excluding procedures, discussion with consultants, and discussion with family. Patient stabilized in the ER and sent to the intensive care unit for emergent hemodialysis. Patient was not stable for any transfer outside our facility. I do not feel patient had a primary cardiac event, I do not suspect a neurologic event, I have a low suspicion for occult bacteremia/ sepsis. Medication Reconcilliation Current Medication List: was personally reviewed by me Blood Pressure Screening Patient's blood pressure: Elevated blood pressure Blood pressure disposition: Referred to PCP Consults Time Called: 2336 Consulting Physician: Dr. King - Nephfernando [facility] Returned Call: 2336 He states that he would like to know the patient's potassium level before calling in the team for emergent dialysis. Additional Consults: Time Called: 15 Consulted Physician: Mishel Liu - Stretch Box Tender [facility] Returned Call: 15 Additional Comments: 001: Discussed the patient's case. She states that her attending is Dr. Suazo. 0031: Discussed the patient's case again with Mishel Liu. Time Called: 19 Consulted Physician: Dr. Costa - ROBERT Sanchez Returned Call: 002 Additional Comments: I reviewed the patient's case with Dr. Costa - ROBERT Sanchez. He will evaluate the patient for further management. Impression Primary Impression: Hyperkalemia Additional Impressions: Vomiting Dysrhythmia Hypotension Hyperglycemia Wide-complex tachycardia Renal transplant, status post ESRD on hemodialysis Dehydration Critical Care I have personally spent 100 minutes of critical care time in the direct management of this patient. This includes bedside care, interpretation of diagnostic studies, and testing, discussion with consultants, patient, and family members, and other required patient management activities. This 100 minutes is in excess of all separately billable procedures. Scribe Attestation The scribe's documentation has been prepared under my direction and personally reviewed by me in its entirety. I confirm that the note above accurately reflects all work, treatment, procedures, and medical decision making performed by me. Departure Information Dispostion Being Evaluated By Hospitalist Referrals Lebron Chu D.O. (PCP) Patient Instructions My [facility] Problem Qualifiers Additional Impressions: Vomiting Vomiting type: unspecified Vomiting Intractability: non-intractable Nausea presence: with nausea Qualified Codes: R11.2 - Nausea with vomiting, unspecified Dysrhythmia Arrhythmia type: other cardiac arrhythmia Qualified Codes: I49.8 - Other specified cardiac arrhythmias Hypotension Hypotension type: unspecified hypotension type Qualified Codes: I95.9 - Hypotension, unspecified
--- NOTE | 2017-05-14 00:24 | Critical Care Consultation ---
Critical Care Consultation Date of Consultation: May 14, 2017. Attending Physician: Dr. Alfredito Costa Reason for Consultation: Emergent Dialysis History of Present Illness Pt presents with AMS after recent GI symptoms per mother. Today he became lightheaded and dizzy after not feeling well yesterday. Reports he felt numb all over. EMS was called and noted Wide complex Tachycardia and received 80ml of lidocaine in transit. He dialyses MWF at the [facility] with Dr. Palma and has not missed any recent appointments. Today his iStat demonstrated a K greater than 9. Pt states he feels weak and numb. Initially an IV site could not be obtained and pt received an right LE IO. Pt has been treated in the ED with Calcium, 2 amps of Bicarb, 10unit of Insulin x 2. Blood pressures in the ED have ranged from unmeasureably low to 176. Pulse has ranged from 83-190. He was 100% on 15L non-rebreather. Per ED RN, pt began to improve significantly with the second dose of insulin. After initial hyperkalemia treatment was received pt did undergo placement of a right triple lumen catheter. He has had a similar episode like this in the past and required emergent HD after missing a HD appointment and presented with V-fib arrest requiring mechanical intubation. I have spoken with Dr. King of Nephrology at length about the cause of the pts sudden changes as pt was concerned about having eaten yoruba fries at the bar on Sunday after a K of 5 at the conclusion of HD. Dr. King states that his concerns are either possible needle placement during prior HD treatment or a stenosis within the fistula vessel; however, he finds that later less likely 2 /2 to his physical exam of the fistula. A Doppler has been ordered to verify as well. Pt has lengthy and complicated PMHx. 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 Only to lose his transplanted allograft 2/2 recurrent GN. Per prior nephrology note, pt underwent complicated repair of a dissecting aortic aneurysm at [facility] [place], requiring 11 days of ECMO, tracheostomy s/p ET intubation on mechanical ventilation, acute tx of DVT. The patient denies weight loss, headache, change in vision, sore throat, chest pain, palpitations, awareness of tachyarrhythmias, leg swelling, shortness of breath, cough, bloody stools, constipation, abdominal pain, other changes in urine or bowel habits. 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 Surgical Problems: Aortic dissection Renal transplant, status post AV Fistula Placement for HD Family History Cancer Hypertension Social History Smoking Status: Never Smoker Drug Use: none Marital Status: single Housing Status: lives with family Occupation Status: student Allergies Coded Allergies: Penicillins (Unverified Allergy, Severe, FACE SWELLS, 05/14/17) Amoxicillin (Verified Allergy, Unknown, ?, 05/14/17) Home Medications Scheduled Atorvastatin (Lipitor), 40 MG PO QPM Carvedilol (Coreg), 50 MG PO BID Cholecalciferol (Vitamin D3), 1 TAB PO DAILY Ferric Citrate (Auryxia), 420 MG PO TIDM Gabapentin (Neurontin), 200 MG PO QAM Gabapentin (Neurontin), 300 MG PO HS Levothyroxine Sodium (Levothyroxine Sodium), 50 MCG PO QAM Lisinopril (Zestril), 40 MG PO DAILY Sertraline (Zoloft), 50 MG PO DAILY Sevelamer Carbonate (Renvela), 1,600 MG PO TIDM Scheduled PRN Nortriptyline (Pamelor), 50 MG PO DAILY PRN for UNDECIDED Sevelamer Carbonate (Renvela), 800 MG PO DAILY PRN for With a Snack Review of Systems 12 systems reviewed and negative other than previously mentioned in the HPI. Physical Exam Date Time Temp Pulse Resp B/P (MAP) Pulse Ox O2 Delivery O2 Flow Rate FiO2 05/14/17 00:16 94 05/13/17 23:58 83 05/13/17 23:53 166 05/13/17 23:35 190 30 100 Partial Rebreather 15.0 05/13/17 23:24 47 05/13/17 23:20 88 Vital Signs - as noted Laboratory Data - as noted Physical Exam: General - NAD, appears drowsy Eyes - PERRL, EOMI No icterus, gaze conjugate ENT - Mucosa dry, no lesions or candidiasis Neck - Supple, trachea midline, no masses or lymphadenopathy, no JVD or bruits Lungs - No paradoxical chest wall movement, clear to auscultation bilaterally, no wheezes, rales, or rhonchi Heart - Reg rate and rhythm, No murmur, rubs, clicks, or gallops appreciated, multiple surgical scars across thorax/abd Abdomen - BS present, no bruits noted, tympanic to percussion, soft, nontender, nondistended, no organomegaly Extremities - No edema, pedal pulses intact, dressing over IO insertion site on right and surgical scars along lateral and medial sides of left calf, fistula with thrill and bruit on left bicep Neuro - A&O x 4 Strength extremities equal and appropriate bilaterally Reflexes: Bicep, brachioradialis, patellar, and plantar normal and equal CN:PERRL, EOMI, no facial asymmetry, uvula/tongue midline Laboratory Results Last 24 Hours Test 05/14/17 00:09 Diagnostic Results CXR: No acute cardiopulmonary process noted. Assessment & Plan (1) Hypotension (2) Hyperglycemia (3) Wide-complex tachycardia (4) Altered mental status (5) Hyperkalemia (6) ESRD on hemodialysis Reason Critically Ill: Patient is an 22-year-old male who is transferred to the ICU for severe emergent hyperkalemia in the setting of chronic HD on MWF. Pt treated in ED with Ca, Insulin 10u x 2, and 2Amps HCO3. Repeat K 7.7. Wide Complex Tachycardia resolved prior to admission to ICU. PLAN: Fluids/Renal: * Acute Hyperkalemia treatment in ED with Ca, Insulin, HCO3 per HPI * Initial K >9, Repeat 7.7 * Undergoing Emergent HD now * Doppler of fistula to verify patency in AM * Repeat labs after HD * Pt anuric * Continue home renal medications * Nephrology on board. Dr. King following Neuro: * Altered Mental Status * Resolved; likely secondary to hypotension in the setting of acute arrhythmia now resolved * Continue home medications * Neuro checks per protocol Resp: * Pt with adequate saturations on room air. * Reviewed CXR: No acute process noted * Pt denies respiratory sx CV: * Pt with wide complex tachycardia prior to admission to ICU * Rcv'd Lidocaine KIER OPERATOR * Returned to NSR with Insulin administration for hyperkalemia * Monitor closely on telemetry * Trending electrolytes ID: * No source of infection at this time * Trend WBC and Fever curve GI/Nutrition: * NPO except sips and chips at this time * Will likely advance diet after HD completes * No indication for GI Prophylaxis Heme: * H&H: 13.1/38.9 Plts: 176 * DVT Prophylaxis: SCDs ordered, Heparin 5,000U SQ q8h Endocrine: * Initial Glucose >500, repeat PRP was 224 * Accu-Checks per protocol, started insulin infusion for 2 blood sugars greater than 180 * Continue home dose of levothyroxine Access: Right Groin CVL Triple Lumen placed in ED CCT: 60 Minutes; This time is exclusive of all separately billable procedures. Thank you for involving us in the care of this patient. Please refer to Dr. Griselda Schumacher addendum for further recommendations. Attending addendum, The patient was seen and examined independently, chart reviewed, agree with assessment and plan of my colleague Mishel. The patient is a 22-year-old gentleman with history of membranous glomerular nephritis status post failed renal transplant 2, currently he is on hemodialysis, the patient presented to the hospital with significant hyperkalemia requiring urgent dialysis. Dr. King from nephrology input has been appreciated, case discussed with him, the impression was malpositioning of the needle into the AV fistula resulted in poor clearance of the hyperkalemia. The patient currently resolved his hyperkalemia entirely. The patient on arrival did have what appeared to be signed waves on the EKG. The patient did require placement of I/O on the left and was removed afterwards in which the patient continued to complain of pain at the site. Lidoderm did not resolve and completely relieving his pain however the pain was relieved by Dilaudid. Extensive psych history was noted also in this patient. The patient was started on oral intake using a renal diet. Appreciate nutrition input in that regard. The patient improved dramatically and can be transferred to telemetry floor. Recommended also vascular consult and cardiology consult to evaluate for possible placement of AICD, although the patient has significant periodic hyperkalemia however given his young age, I am not sure if AICD should be entertained in this patient to prevent future events from occurring. He already had similar events in the past. Case discussed with the staff on rounds of details, critical care time spent with the patient was 45 minutes.
[2017-05-14] MEDS ORDERED: FENTANYL CITRATE INJ 50 MCG/1 ML 2 ML VIAL IV STA (00:25)
[2017-05-14] MEDS ORDERED: ICU PROTOCOL FOR HYPERGLYCEMIA PRN (00:30)
[2017-05-14] MEDS ORDERED: CHOL1000 PO (00:31)
[2017-05-14] MEDS ORDERED: LISI40TA PO (00:31)
[2017-05-14] MEDS ORDERED: ATOR-24 PO (00:31)
--- NOTE | 2017-05-14 00:50 | Nephrology Consultation ---
Nephrology Consultation Date & Providers Date of Consultation: May 14, 2017. Primary Care Provider: Lebron Chu D.O. Referring Provider: Reason for Consultation ESRD requiring emergency HD History of Present Illness Mr. Clay is a 22 year old white male who is seen at the request of Dr. Caballero to provide emergency HD and assist w/ medical management. I was notified at 12 midnight that the patient was in the ED with an undetermined cardiac rhythm. Laboratory studies and vascular access were being obtained. It was noted that Mr. Clay has required emergency HD in the past due to hyperkalemia. I recommended that STAT labs be obtained and medical management for hyperkalemia be administrated. The HD RN communications equipment installer was contacted by phone and asked to come in for emergency dialysis. Upon my arrival in the hospital Mr. Clay was seen and examined in the ED. Case was discussed w/ Dr. Caballero. She informed me that iSTAT potassium was > 9.0. Patient required temporary pacing but rhythm recovered after administration of IV bicarbonate and calcium. Mr. Clay was found to be awake, alert and hemodynamically stable. He reported that he has been compliant with his dialysis treatments. His last treatment was Sunday. There were no complications at that time. He reports that his time on dialysis was recently reduced to 3.5 hours since his laboratory studies and dialysis clearance had been acceptable. O/E: CV - RRR, Lungs - CTA, Abd - benign, L upper arm AVF with low pitched continuous bruit. Telemetry was NSR. Patient was immediately transported to room 105 ICU for emergency HD. Review of medical records reveals that 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 He was on peritoneal dialysis for 3 years and then received a DDRT. 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 He transitioned back to IHD 09/10. He currently dialyzes MWF at the [facility] HD unit under the care of Dr. Palma. 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 Patient was on PD x 3 years and then received DDRT # Failed transplant requiring initiation of IHD 09/10 # Ascending aortic dissection s/p surgical repair 03/14 at [facility]. He was hospitalized for 79 days requiring tracheostomy/mechanical ventilation and was on ECMO for 11 days. He required Coumadin for treatment of DVT. # HTN # Anemia # Steroid induced DM Surgical: # PD catheter insertion & subsequent removal # DDRT # Left arm AVF # Dissected aortic aneurysm repair # Pseudoaneurysm repair L upper arm AVF 03/15 Allergies Coded Allergies: Penicillins (Unverified Allergy, Severe, FACE SWELLS, 05/14/17) Amoxicillin (Verified Allergy, Unknown, ?, 05/14/17) Inpatient Medications Current Inpatient Medications Medications (Trade) Dose Ordered Sig/Moises Route Start Time Stop Time Status Last Admin Dose Admin Lorazepam (Ativan Inj) 0.5 mg Q4H PRN IV 05/14/17 00:30 06/13/17 00:29 Miscellaneous Information (Icu Protocol For Hyperglycemia) 1 ea PRN PRN N/A 05/14/17 00:30 05/16/17 00:29 Family History Cancer Hypertension Negative for CKD/ESRD Social History Smoking Status: Never Smoker Drug Use: none Marital Status: single 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 Lives with mother Review of Systems Constitutional: No fever Respiratory: No shortness of breath Cardiovascular: No chest pain Abdomen: No pain, No nausea, No vomiting A complete review of systems was performed. Pertinent positives are noted above. All other systems are negative. Physical Exam Date Time Temp Pulse Resp B/P (MAP) Pulse Ox O2 Delivery O2 Flow Rate FiO2 05/14/17 00:16 94 05/13/17 23:58 83 05/13/17 23:53 166 05/13/17 23:35 190 30 100 Partial Rebreather 15.0 05/13/17 23:24 47 05/13/17 23:20 88 General Appearance: no apparent distress Head: normocephalic, atraumatic Eyes: PERRL, EOMI Neck: no adenopathy Respiratory/Chest: lungs clear, no respiratory distress Cardiovascular: regular rate, rhythm Abdomen/GI: normal bowel sounds, non tender, soft Extremities/Musculoskelatal: no pedal edema, + pertinent finding (L upper arm AVF w/ continuous low pitched bruit. AVF does have surrounding ecchymosis suggestive of recent infiltration) Neurologic/Psych: alert, oriented x 3 Skin: warm/dry Laboratory Results Last 24 Hours Test 05/14/17 00:09 Impression (1) Hyperkalemia (2) ESRD on hemodialysis AVF with small area of surrounding ecchymosis suggestive of recent infiltration. 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 Hyperkalemia may be related to recirculation during HD. Recommendations -- Emergency HD tonight. Patient has been transported to ICU. HD RN is now onsite. Case discussed w/ HD RN and ICU team. HD orders entered into EMR. -- AVF does appear ecchymotic. There may have been infiltration at the time of last HD. Venous pressure is borderline (200 mmHG at Qb 400 cc/min). -- Will order doppler of AVF following HD -- Will repeat serum potassium one hour following HD today -- Will speak w/ outpatient HD unit in am to determine whether there has been any complications with vascular access or recent HD treatments 120 minutes critical care time provided. This was necessary to evaluate patient , discuss management w/ ED and ICU teams and coordinate emergency HD
[2017-05-14 01:04] LABS: ALBUMIN 3.4 gm/dl (3.4-5.0); ALKALINE PHOSPHATASE 134 U/L (45-117); ALT/SGPT 41 U/L (12-78); AST/SGOT 30 U/L (15-37); BLOOD UREA NITROGEN 65 mg/dl (7-18); CALCIUM 10.8 mg/dl (8.5-10.1); CARBON DIOXIDE 24 mmol/L (21-32); GLUCOSE 224 mg/dl (70-99); PHOSPHORUS 7.8 mg/dl (2.5-4.9); POTASSIUM 7.7 mmol/L (3.5-5.1); SODIUM 135 mmol/L (136-145); TOTAL PROTEIN 7.6 gm/dl (6.4-8.2)
[2017-05-14 01:10] LABS: BASO % 0.3 %; BASO ABS # 0.02 K/uL (0-0.2); EOS % 2.4 %; EOS ABS # 0.18 K/uL (0-0.5); HEMATOCRIT 38.9 % (42-52); HEMOGLOBIN 13.1 g/dL (14.0-18.0); IG# 0.02 K/uL (0.00-0.02); LYMPH % 29.5 %; LYMPH ABS # 2.25 K/uL (1.2-3.4); MEAN CELL VOLUME 96.8 fL (80-100); MEAN CORPUSCULAR HEMOGLOBIN 32.6 pg (25-34); MEAN CORPUSCULAR HGB CONC 33.7 g/dl (32-36); MONO % 2.6 %; NEUT % 64.9 %; NEUT ABS # 4.96 K/uL (1.4-6.5); PLATELET COUNT 176 K/uL (130-400); RED CELL DISTRIBUTION WIDTH CV 16.4 % (11.5-14.5); WHITE BLOOD COUNT 7.63 K/uL (4.8-10.8)
[2017-05-14] MEDS ORDERED: DiphenhydrAMINE INJ 25 MG in SYRINGE 0 ML IV SCH (01:15)
[2017-05-14] MEDS ORDERED: DiphenhydrAMINE HCL 50 MG/ML VIAL ONE (01:17)
--- NOTE | 2017-05-14 01:27 | History and Physical ---
History & Physical Date & Time of Service: May 14, 2017 at 01:20 Chief Complaint: Altered Mental Status Primary Care Physician: Lebron Chu D.O. History of Present Illness Source: patient 21 y/o M with complex history including membranous glomerulonephropathy - ESRD since age 16, ascending aortic dissection 02/11, HTN, hypothyroid, previous episodes of critical hyperkalemia requiring emergent dialysis. The pt reports nausea, vomiting and weakness this AM which progressed to somnolence. EMS was alerted. On arrival to the pt's house it is reported that he was hypotensive and bradycardic, initially requiring pacing. On arrival to the ER, an EKG displayed wide-complex tachycardia. Initially it was thought that this was VT, however, an iSTAT K came back at 9.0 and the EKG therefore may have represented sine waves. The pt was provided with Calcium gluconate, bicarb, insulin/D50. Nephrology was notified to request emergent dialysis. The pt is awake and oriented at the time of medical evaluation. He has pain in his RLE as an osseus line was placed on route to the hospital. He does not have additional complaints at the time of admission and had improved substantially following treatment for hyperK. He does admit to consumption of japanese fries the previous evening and normally avoids potatoes. He was promptly transferred to the ICU to commence dialysis. Past Medical/Surgical History 1) Membranous glomerulonephritis - ESRD x 5 yrs. Pt has failed multiple renal transplants. Currently on dialysis. 2) LUE dialysis fistula 3) Ascending aortic dissection 02/11 - required emergent surgery was on ECMO at [facility] for 11 days 4) Hypothyroidism 5) Questionable history of DVT 6) HTN 7) Recurrent critical potassium levels Family History Cancer Hypertension Social History Drinks occasionally Smoking Status: Never Smoker Drug Use: none Marital Status: single Occupational Status: student Immunizations History of Influenza Vaccine: Unknown History of Tetanus Vaccine?: Unknown History of Pneumococcal: Unknown History of Hepatitis B Vaccine: Unknown Allergies Coded Allergies: Penicillins (Unverified Allergy, Severe, FACE SWELLS, 05/14/17) Amoxicillin (Verified Allergy, Unknown, ?, 05/14/17) Home Medications Scheduled Atorvastatin (Lipitor), 40 MG PO QPM Carvedilol (Coreg), 50 MG PO BID Cholecalciferol (Vitamin D3), 1 TAB PO DAILY Ferric Citrate (Auryxia), 420 MG PO TIDM Gabapentin (Neurontin), 200 MG PO QAM Gabapentin (Neurontin), 300 MG PO HS Levothyroxine Sodium (Levothyroxine Sodium), 50 MCG PO QAM Lisinopril (Zestril), 40 MG PO DAILY Sertraline (Zoloft), 50 MG PO DAILY Sevelamer Carbonate (Renvela), 1,600 MG PO TIDM Scheduled PRN Nortriptyline (Pamelor), 50 MG PO DAILY PRN for UNDECIDED Sevelamer Carbonate (Renvela), 800 MG PO DAILY PRN for With a Snack Review of Systems Constitutional: + weakness, + problem reported (Somnolence reported ), No fever , No chills, No sweats Eyes: No worsening of vision ENT: No hearing loss, No unusual epistaxis, No nasal symptoms Respiratory: No cough, No sputum, No wheezing Cardiovascular: No chest pain, No orthopnea, No PND Abdomen: + nausea, + vomiting, No pain Musculoskeletal: No joint pain Genitourinary - Male: No hematuria, No dysuria Neurologic: + weakness, No memory loss Endocrine: + fatigue Hematologic / Lymphatic: No abnormal bleeding/bruising Integumentary: No rash Allergic / Immunologic: No environmental allergies Physical Exam Vital Signs Date Time Temp Pulse Resp B/P (MAP) Pulse Ox O2 Delivery O2 Flow Rate FiO2 05/14/17 00:16 94 05/13/17 23:58 83 05/13/17 23:53 166 05/13/17 23:35 190 30 100 Partial Rebreather 15.0 05/13/17 23:24 47 05/13/17 23:20 88 Examined in ICU General Appearance: WD/WN, no apparent distress Head: normocephalic Eyes: normal inspection ENT: normal ENT inspection, pharynx normal Neck: supple, no JVD Respiratory/Chest: chest non-tender, lungs clear, normal breath sounds Cardiovascular: regular rate, rhythm, no edema, no gallop Abdomen/GI: normal bowel sounds, non tender, soft Back: normal inspection, no CVA tenderness Extremities/Musculoskelatal: + pertinent finding (Puncture wound at RLE - fistula, bruit - LUE) Neurologic/Psych: ergonomics engineer II-XII nml as tested, no motor/sensory deficits, alert, oriented x 3 Skin: normal color, warm/dry Diagnostics Laboratory Results Results Past 24 Hours Test 05/14/17 00:09 Range/Units White Blood Count 7.63 4.8-10.8 K/uL Red Blood Count 4.02 4.7-6.1 M/uL Hemoglobin 13.1 14.0-18.0 g/dL Hematocrit 38.9 42-52 % Mean Corpuscular Volume 96.8 80-100 fL Mean Corpuscular Hemoglobin 32.6 25-34 pg Mean Corpuscular Hemoglobin Concent 33.7 32-36 g/dl Platelet Count 176 130-400 K/uL Mean Platelet Volume 10.0 7.4-10.4 fL Neutrophils (%) (Auto) 64.9 % Lymphocytes (%) (Auto) 29.5 % Monocytes (%) (Auto) 2.6 % Eosinophils (%) (Auto) 2.4 % Basophils (%) (Auto) 0.3 % Neutrophils # (Auto) 4.96 1.4-6.5 K/uL Lymphocytes # (Auto) 2.25 1.2-3.4 K/uL Monocytes # (Auto) 0.20 0.11-0.59 K/uL Eosinophils # (Auto) 0.18 0-0.5 K/uL Basophils # (Auto) 0.02 0-0.2 K/uL RDW Standard Deviation 58.0 36.4-46.3 fL RDW Coefficient of Variation 16.4 11.5-14.5 % Immature Granulocyte % (Auto) 0.3 % Immature Granulocyte # (Auto) 0.02 0.00-0.02 K/uL Red Blood Cell Morphology Unremarkable Sodium Level 135 136-145 mmol/L Potassium Level 7.7 3.5-5.1 mmol/L Chloride Level 96 98-107 mmol/L Carbon Dioxide Level 24 21-32 mmol/L Anion Gap 15.0 3-11 mmol/L Blood Urea Nitrogen 65 7-18 mg/dl Creatinine 11.10 0.60-1.40 mg/dl Estimated GFR () 6.8 Estimated GFR (Non- 5.8 BUN/Creatinine Ratio 5.8 10-20 Random Glucose 224 70-99 mg/dl Calcium Level 10.8 8.5-10.1 mg/dl Phosphorus Level 7.8 2.5-4.9 mg/dl Magnesium Level 2.6 1.8-2.4 mg/dl Total Bilirubin 0.9 0.2-1 mg/dl Aspartate Amino Transf (AST/SGOT) 30 15-37 U/L Alanine Aminotransferase (ALT/SGPT) 41 12-78 U/L Alkaline Phosphatase 134 45-117 U/L Troponin I 0.016 0-0.045 ng/ml Pro-B-Type Natriuretic Peptide > 19709 0-450 pg/ml Total Protein 7.6 6.4-8.2 gm/dl Albumin 3.4 3.4-5.0 gm/dl Globulin 4.2 2.5-4.0 gm/dl Albumin/Globulin Ratio 0.8 0.9-2 Microbiology Results 05/14/17 MRSA DNA Surveillance Screen, Ordered Pending EKG Initial EKG with Sine waves Impression Assessment and Plan 21 y/o M with complex history including membranous glomerulonephropathy - ESRD since age 16, ascending aortic dissection 02/11, HTN, hypothyroid, previous episodes of critical hyperkalemia requiring emergent dialysis. The pt reports nausea, vomiting and weakness this AM which progressed to somnolence. EMS was alerted. On arrival to the pt's house it is reported that he was hypotensive and bradycardic, initially requiring pacing. On arrival to the ER, an EKG displayed wide-complex tachycardia. Initially it was thought that this was VT, however, an iSTAT K came back at 9.0 and the EKG therefore may have represented sine waves. The pt was provided with Calcium gluconate, bicarb, insulin/D50. Nephrology was notified to request emergent dialysis. 1) ESRD - hyperK - symptomatic, initially with bradycardia then wide complex tachycardia - likely sine waves. EKG largely normalized following treatment for hyperK. Emergent dialysis is initiated. We will recheck K following dialysis. A repeat level after treatment was 7.7. 2) HTN - meds currently held due to hypotension 3) Hypothyroid - cont Synthroid Full code - Heparin prophylaxis Total time for this admit including review of labs, meds, records, EKG - discussion with pt, ER attending and nephrology - inc critical care time - 45 min Resuscitation Status VTE Prophylaxis Will order VTE Prophylaxis: Yes
[2017-05-14] MEDS ORDERED: FENTANYL CITRATE INJ 50 MCG/1 ML 2 ML VIAL IV ONE (05:15)
[2017-05-14] MEDS ORDERED: FENTANYL CITRATE INJ 50 MCG/1 ML 2 ML VIAL ONE (05:15)
[2017-05-14] MEDS: LEVOTHYROXINE 50 MCG TAB PO SCH (05:22)
[2017-05-14] MEDS: LORAZEPAM 2 MG/ML 1 ML VIAL IV PRN (05:51)
[2017-05-14 06:11] LABS: HEMATOCRIT 38.2 % (42-52); HEMOGLOBIN 12.8 g/dL (14.0-18.0); MEAN CORPUSCULAR HEMOGLOBIN 32.5 pg (25-34); MEAN CORPUSCULAR HGB CONC 33.5 g/dl (32-36); MEAN PLATELET VOLUME 8.6 fL (7.4-10.4); PLATELET COUNT 147 K/uL (130-400); RED CELL DISTRIBUTION WIDTH CV 16.6 % (11.5-14.5); RED CELL DISTRIBUTION WIDTH SD 59.1 fL (36.4-46.3); WHITE BLOOD COUNT 8.63 K/uL (4.8-10.8)
[2017-05-14 06:45] LABS: CALCIUM 8.7 mg/dl (8.5-10.1); CREATININE 4.58 mg/dl (0.60-1.40); PHOSPHORUS 5.3 mg/dl (2.5-4.9); POTASSIUM 4.2 mmol/L (3.5-5.1)
[2017-05-14] MEDS ORDERED: HYDROmorphone INJ 0.5 MG/0.5 ML SYR IV STA (06:49)
[2017-05-14] MEDS ORDERED: HYDROmorphone INJ 0.5 MG/0.5 ML SYR ONE (06:51)
--- NOTE | 2017-05-14 06:58 | DIAGNOSTIC IMAGING REPORT ---
CHEST ONE VIEW PORTABLE CLINICAL HISTORY: vomiting nausea COMPARISON STUDY: 12/08/2016 FINDINGS: Stable cardiomegaly. Prior median sternotomy. Diaphragms smooth. Lungs are considered clear. Minimal plate like atelectasis left base. IMPRESSION: Moderate stable cardiomegaly. Minimal atelectasis left base. The above report was generated using voice recognition software. It may contain grammatical, syntax or spelling errors. Electronically signed by: Gary Chun M.D. 05/14/2017 6:57 AM Dictated Date/Time: 05/14/2017 6:57 AM
--- NOTE | 2017-05-14 08:06 | DIAGNOSTIC IMAGING REPORT ---
DUPLEX HEMODIALYSIS ACCESS CLINICAL HISTORY: evaluate for stenosis thrombosis TECHNIQUE: Doppler and real-time ultrasound COMPARISON STUDY: 03/21/2017 FINDINGS: The patient's left arm fistula remains patent. The amount of thrombus is improved compared to the prior study. There does not appear to be a high-grade stenotic process. Velocity characteristics unchanged. This is considered stable. The fistula of the left arm remains stable. IMPRESSION: 1. The fistula of the left arm remains patent. 2. The amount of thrombus within the fistula is diminished 3. No current evidence for a high-grade stenosis. The above report was generated using voice recognition software. It may contain grammatical, syntax or spelling errors. Electronically signed by: Gary Chun M.D. 05/14/2017 8:04 AM Dictated Date/Time: 05/14/2017 8:01 AM
[2017-05-14] MEDS ORDERED: PERFLUTREN LIPID MICROSPHERE (DEFINITY) IV ONE (10:24)
[2017-05-14] MEDS: SEVELAMER HYDROCH 800 MG TAB PO SCH ×3 (11:30→16:54)
[2017-05-14] MEDS ORDERED: LIDODERM (LIDOCAINE) PATCH 5% TD ONE (12:00)
[2017-05-14] MEDS: HEPARIN SOD 5000 UNIT/0.5 ML CARP SQ SCH ×3 (12:06→21:01)
[2017-05-14 12:07] LABS: ISTAT CREATININE 10.3 mg/dl (0.6-1.3); ISTAT IONIZED CALCIUM 1.08 mmol/l (1.12-1.32); ISTAT POTASSIUM > 9.0 mEq/L (3.3-5.0); ISTAT SODIUM 128 mEq/L (135-144)
[2017-05-14] MEDS: CARVEDILOL 25 MG TAB PO SCH ×2 (12:07→21:00)
[2017-05-14] MEDS: GABAPENTIN 100 MG CAP PO SCH (12:08)
[2017-05-14] MEDS: SERTRALINE HCL 50 MG TAB PO SCH (12:11)
--- NOTE | 2017-05-14 13:11 | ECHOCARDIOGRAM REPORT ---
*NOTICE TO RECEIVING [employer] This information is strictly Confidential and protected under [place] law. [place] law prohibits you from making any further disclosure of this information unless further disclosure is expressly permitted by the written consent of the person to whom it pertains or is authorized by law. A general authorization for the release of medical or other information is not sufficient for this purpose. Hospital accepts no responsibility if the information is made available to any other person, INCLUDING THE PATIENT. Interpretation Summary * Name: ENRICO PEREZ Study Date: 05/14/2017 09:53 AM BP: 152/96 mmHg * Patient Location: .[facility]\S\E105\S\1 HR: 110 * : 1995 (M/d/yyyy) Gender: Male Height: 67 in * Age: 22 yrs Ethnicity: CA Weight: 142 lb * Ordering Physician: Griselda Schumacher * Referring Physician: Self, Referred * Performed By: Christina Walker RDCS * * Reason For Study: VFIB * BSA: 1.7 m2 * -- Conclusions -- * 1. Normal left ventricular size with low-normal systolic function. EF 50-55%. Kaplan not well visualized, otherwise wall motion appeared normal. Moderate concentric left ventricular hypertrophy. * 2. Mildly dilated right ventricle with mildly reduced systolic function. * 3. Mild, eccentric aortic regurgitation. * 4. Mild mitral regurgitation. * 5. Mildly dilated aortic root. * 6. Pleural effusion. * 7. Normal estimated right ventricular systolic pressure; 29mmHg. * 8. Technically difficult study, enhanced with IV Definity. * 9. Compared to prior study on 02/27/2016, Type A aortic dissection is no longer visualized. Pericardial effusion has resolved. LV systolic function has improved. Procedure Details * A contrast injection of Definity was performed to improve assessment of LV function. * Contrast was injected into an intravenous site in the central line. * One vial of Definity ultrasound contrast was diluted in normal saline to a total volume of 10 ml. A total of '2' ml of solution was administered during imaging. * Lot # [id number] of Definity utilized for procedure. * Expiration date APR 16. * The attending nurse who injected the contrast agent was HANNAH CLEMENTS. Left Ventricle * Normal left ventricular size with low-normal systolic function. EF 50-55%. Kaplan not well visualized, otherwise wall motion appeared normal. Moderate concentric left ventricular hypertrophy. Right Ventricle * The right ventricle is mildly dilated. * The right ventricular systolic function is reduced as assessed by tricuspid annular plane systolic excursion (TAPSE) (TAPSE <1.6 cm). Atria * The left atrial size is normal. * Right atrial size is normal. * There is no evidence of atrial septal defect, but resolution does not allow assessment for a patent foramen ovale. Mitral Valve * The mitral valve is grossly normal. * There is no mitral valve stenosis. * There is mild mitral regurgitation. Tricuspid Valve * The tricuspid valve is not well visualized, but is grossly normal. * There is no tricuspid stenosis. * There is mild tricuspid regurgitation. Aortic Valve * The aortic valve is trileaflet. * No hemodynamically significant valvular aortic stenosis. * Mild aortic regurgitation. Pulmonic Valve * The pulmonary valve is inadequately visualized, but the Doppler data is adequate for interpretation. * There is no pulmonic valvular stenosis. * Trace pulmonic valvular regurgitation. Great Vessels * Mild aortic root dilatation. * Continuous flow noted at the origin of the left subclavian artery, which may be consistent with known left upper extremity AV fistula. Pericardium/Pleural * There is no pericardial effusion. * Pleural effusion. Great Vessels * Normal inferior vena cava size and collapsability with sniff indicates a normal right atrial pressure of 3 mmHg MMode 2D Measurements and Calculations IVSd 1.4 cm IVSs 1.8 cm LVIDd 4.8 cm LVIDs 3.5 cm LVPWd 1.3 cm LVPWs 1.8 cm IVS/LVPW 1.0 FS 28.1 % EDV(Teich) 108.3 ml ESV(Teich) 49.6 ml EF(Teich) 54.2 % EDV(cubed) 111.6 ml ESV(cubed) 41.5 ml EF(cubed) 62.8 % % IVS thick 33.3 % % LVPW thick 35.1 % LV mass(C)d 260.8 grams LV mass(C)dI 149.2 grams/m\S\2 LV mass(C)s 262.0 grams LV mass(C)sI 149.9 grams/m\S\2 SV(Teich) 58.7 ml SI(Teich) 33.6 ml/m\S\2 SV(cubed) 70.0 ml SI(cubed) 40.1 ml/m\S\2 Ao root diam 4.0 cm Ao root area 12.8 cm\S\2 LA dimension 3.7 cm LA/Ao 0.91 LVAd ap4 40.5 cm\S\2 LVLd ap4 9.9 cm EDV(MOD-sp4) 139.9 ml EDV(sp4-el) 142.1 ml LVAs ap4 27.1 cm\S\2 LVLs ap4 9.2 cm ESV(MOD-sp4) 67.7 ml ESV(sp4-el) 68.3 ml EF(MOD-sp4) 51.6 % EF(sp4-el) 52.0 % LVAd ap2 44.5 cm\S\2 LVLd ap2 10.6 cm EDV(MOD-sp2) 156.4 ml EDV(sp2-el) 159.2 ml LVAs ap2 29.2 cm\S\2 LVLs ap2 10.0 cm ESV(MOD-sp2) 75.6 ml ESV(sp2-el) 72.3 ml EF(MOD-sp2) 51.7 % EF(sp2-el) 54.6 % LVLd %diff 9.3 % EDV(MOD-bp) 158.8 ml LVLs %diff 6.6 % ESV(MOD-bp) 68.7 ml EF(MOD-bp) 56.7 % SV(MOD-sp4) 72.2 ml SI(MOD-sp4) 41.3 ml/m\S\2 SV(MOD-sp2) 80.8 ml SI(MOD-sp2) 46.2 ml/m\S\2 SV(MOD-bp) 90.1 ml SI(MOD-bp) 51.5 ml/m\S\2 SV(sp4-el) 73.8 ml SI(sp4-el) 42.2 ml/m\S\2 SV(sp2-el) 86.9 ml SI(sp2-el) 49.7 ml/m\S\2 Doppler Measurements and Calculations MV E max braxton 109.6 cm/sec Ao V2 max 106.1 cm/sec Ao max PG 4.5 mmHg Ao max PG (full) 0.31 mmHg AI max braxton 335.2 cm/sec AI max PG 44.9 mmHg AI dec slope 295.3 cm/sec\S\2 AI P1/2t 332.5 msec LV V1 max PG 4.2 mmHg LV V1 max 102.3 cm/sec MR max braxton 401.2 cm/sec MR max PG 64.4 mmHg TV E max braxton 70.4 cm/sec TR max braxton 254.6 cm/sec RVSP(TR) 28.9 mmHg RAP systole 3.0 mmHg
[2017-05-14] MEDS ORDERED: NURSING VERBAL MED ORDER ONE (13:15)
[2017-05-14] MEDS ORDERED: HYDROmorphone INJ 0.5 MG/0.5 ML SYR IV ONE (13:36)
--- NOTE | 2017-05-14 14:55 | Nephrology Progress Note ---
Nephrology Progress Note Date of Service May 14, 2017. Chief Complaint ESRD requiring HD Subjective Mr. Clay was seen & examined in the ICU this morning. He tolerated HD last night without complication. He currently denies chest pain or weakness. Telemetry shows NSR. Review of Systems Constitutional: No fever Cardiovascular: No chest pain Respiratory: No dyspnea at rest Abdomen: No pain, No nausea, No vomiting A complete review of systems was performed. Pertinent positives are noted above. All other systems are negative. Vital Signs Last 8 Hrs Date Time Temp Pulse Resp B/P (MAP) Pulse Ox O2 Delivery O2 Flow Rate FiO2 05/14/17 13:55 107 05/14/17 13:40 105 05/14/17 13:25 110 05/14/17 13:10 112 05/14/17 13:10 112 05/14/17 13:02 118 152/106 (115) 05/14/17 12:40 128 05/14/17 12:10 113 05/14/17 12:05 36.5 117 05/14/17 12:01 110 170/104 (119) 05/14/17 12:00 96 Room Air 05/14/17 11:35 108 05/14/17 11:05 107 05/14/17 11:01 108 155/95 (113) 05/14/17 10:35 107 100 05/14/17 10:05 107 100 05/14/17 10:01 109 152/96 (129) 97 05/14/17 10:00 107 100 05/14/17 09:30 107 99 05/14/17 09:01 113 158/103 (125) 97 05/14/17 09:00 111 97 05/14/17 08:30 111 98 05/14/17 08:01 115 163/100 (113) 99 05/14/17 08:00 Room Air 05/14/17 08:00 95 Room Air 05/14/17 08:00 115 98 05/14/17 07:30 117 100 05/14/17 07:01 121 150/93 (113) 89 05/14/17 07:00 114 88 I & O 24-Hour Column 05/15/17 07:59 Intake Total 240 ml Balance 240 ml Last Recorded Weight Weight (Kilograms): 64.800 Physical Exam General Appearance: no apparent distress Head: normocephalic, atraumatic Eyes: PERRL, EOMI Neck: supple, no adenopathy Respiratory/Chest: lungs clear Cardiovascular: regular rate, rhythm Abdomen/GI: normal bowel sounds, non tender, soft Extremities/Musculoskelatal: no calf tenderness, no pedal edema Neurologic/Psych: alert, oriented x 3 Family History Cancer Hypertension Negative for CKD/ESRD Social History Smoking Status: Never smoker Drug Use: none Marital Status: single 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 Lives with mother Laboratory Results Past 24 Hours 05/14/17 00:09 Red Blood Count 4.02, Mean Corpuscular Volume 96.8, Mean Corpuscular Hemoglobin 32.6, Mean Corpuscular Hemoglobin Concent 33.7, Mean Platelet Volume 10.0, Neutrophils (%) (Auto) 64.9, Lymphocytes (%) (Auto) 29.5, Monocytes (%) (Auto) 2.6, Eosinophils (%) (Auto) 2.4, Basophils (%) (Auto) 0.3, Neutrophils # (Auto) 4.96, Lymphocytes # (Auto) 2.25, Monocytes # (Auto) 0.20, Eosinophils # (Auto) 0.18, Basophils # (Auto) 0.02 05/14/17 06:03 05/14/17 00:09 05/14/17 06:03 Test 05/14/17 00:01 05/14/17 00:09 05/14/17 06:03 05/14/17 11:08 Bedside Hemoglobin 13.3 g/dl (14.0-18.0) Bedside Hematocrit 39 % (42-52) Bedside Sodium 128 mEq/L (135-144) Bedside Potassium > 9.0 mEq/L (3.3-5.0) Bedside Chloride 94 mEq/L (101-112) Bedside Total CO2 28 mEq/l (24-31) Anion Gap mmol/L (16-25) 15.0 mmol/L (3-11) 9.0 mmol/L (3-11) Bedside Blood Urea Nitrogen 83 mg/dl (7-18) Bedside Creatinine 10.3 mg/dl (0.6-1.3) Bedside Glucose (other) 537 mg/dl (70-99) Bedside Ionized Calcium (Haider) 1.08 mmol/l (1.12-1.32) White Blood Count 7.63 K/uL (4.8-10.8) Red Blood Count 4.02 M/uL (4.7-6.1) 3.94 M/uL (4.7-6.1) Hemoglobin 13.1 g/dL (14.0-18.0) Hematocrit 38.9 % (42-52) Mean Corpuscular Volume 96.8 fL (80-100) 97.0 fL (80-100) Mean Corpuscular Hemoglobin 32.6 pg (25-34) 32.5 pg (25-34) Mean Corpuscular Hemoglobin Concent 33.7 g/dl (32-36) 33.5 g/dl (32-36) Platelet Count 176 K/uL (130-400) Mean Platelet Volume 10.0 fL (7.4-10.4) 8.6 fL (7.4-10.4) Neutrophils (%) (Auto) 64.9 % Lymphocytes (%) (Auto) 29.5 % Monocytes (%) (Auto) 2.6 % Eosinophils (%) (Auto) 2.4 % Basophils (%) (Auto) 0.3 % Neutrophils # (Auto) 4.96 K/uL (1.4-6.5) Lymphocytes # (Auto) 2.25 K/uL (1.2-3.4) Monocytes # (Auto) 0.20 K/uL (0.11-0.59) Eosinophils # (Auto) 0.18 K/uL (0-0.5) Basophils # (Auto) 0.02 K/uL (0-0.2) RDW Standard Deviation 58.0 fL (36.4-46.3) 59.1 fL (36.4-46.3) RDW Coefficient of Variation 16.4 % (11.5-14.5) 16.6 % (11.5-14.5) Immature Granulocyte % (Auto) 0.3 % Immature Granulocyte # (Auto) 0.02 K/uL (0.00-0.02) Red Blood Cell Morphology Unremarkable Estimated GFR () 6.8 19.7 Estimated GFR (Non- 5.8 17.0 BUN/Creatinine Ratio 5.8 (10-20) 3.9 (10-20) Calcium Level 10.8 mg/dl (8.5-10.1) 8.7 mg/dl (8.5-10.1) Phosphorus Level 7.8 mg/dl (2.5-4.9) 5.3 mg/dl (2.5-4.9) Magnesium Level 2.6 mg/dl (1.8-2.4) 2.1 mg/dl (1.8-2.4) Total Bilirubin 0.9 mg/dl (0.2-1) Aspartate Amino Transf (AST/SGOT) 30 U/L (15-37) Alanine Aminotransferase (ALT/SGPT) 41 U/L (12-78) Alkaline Phosphatase 134 U/L (45-117) Troponin I 0.016 ng/ml (0-0.045) Pro-B-Type Natriuretic Peptide > 04644 pg/ml (0-450) Total Protein 7.6 gm/dl (6.4-8.2) Albumin 3.4 gm/dl (3.4-5.0) Globulin 4.2 gm/dl (2.5-4.0) Albumin/Globulin Ratio 0.8 (0.9-2) Est Creatinine Clear Calc Drug Dose 23.4 ml/min Hepatitis B Surface Antigen NEG (NEG) Hepatitis B Surface Antibody POS Date/Time Source Procedure Growth Status 05/14/17 00:50 Nasal MRSA DNA Surveillance Screen - Final Specimen Negative for MRSA by DNA Probe Complete Allergies Coded Allergies: Penicillins (Unverified Allergy, Severe, FACE SWELLS, 05/14/17) Amoxicillin (Verified Allergy, Unknown, ?, 05/14/17) Medications Current Inpatient Medications Medications (Trade) Dose Ordered Sig/Moises Route Start Time Stop Time Status Last Admin Dose Admin Lorazepam (Ativan Inj) 0.5 mg Q4H PRN IV 05/14/17 00:30 06/13/17 00:29 05/14/17 05:51 0.5 MG Miscellaneous Information (Icu Protocol For Hyperglycemia) 1 ea PRN PRN N/A 05/14/17 00:30 05/16/17 00:29 Heparin Sodium (Porcine) (No Heparin In Dialysis) 1 ea TODAY@0100 N/A 05/14/17 01:00 05/14/17 23:59 05/14/17 12:09 1 EA Atorvastatin Calcium (Lipitor Tab) 40 mg QPM PO 05/14/17 21:00 06/13/17 20:59 Carvedilol (Coreg Tab) 50 mg BID PO 05/14/17 09:00 06/13/17 08:59 05/14/17 12:07 50 MG Gabapentin (Neurontin Cap) 200 mg QAM PO 05/14/17 09:00 06/13/17 08:59 05/14/17 12:08 200 MG Gabapentin (Neurontin Cap) 300 mg HS PO 05/14/17 21:00 06/13/17 20:59 Levothyroxine Sodium (Synthroid Tab) 50 mcg DAILYBB PO 05/14/17 06:00 06/13/17 05:59 05/14/17 05:22 50 MCG Miscellaneous Information (Order Awaiting Action) 1 ea QS N/A 05/14/17 08:00 06/13/17 07:59 Sertraline HCl (Zoloft Tab) 50 mg DAILY PO 05/14/17 09:00 06/13/17 08:59 05/14/17 12:11 50 MG Miscellaneous Information (Order Awaiting Action) 1 ea QS N/A 05/14/17 08:00 06/13/17 07:59 Sevelamer HCl (Renagel Tab) 1,600 mg TIDM PO 05/14/17 07:15 06/13/17 07:59 05/14/17 12:09 1,600 MG Heparin Sodium (Porcine) (Heparin Sq 5000 Unit/0.5ml) 5,000 unit Q8 SQ 05/14/17 09:00 06/13/17 08:59 Lidocaine (Lidoderm Patch 5%) 1 patch QAM TD 05/15/17 09:00 06/14/17 08:59 Miscellaneous (Remove Lidoderm Patch) 1 ea DAILY@21 N/A 05/14/17 21:00 06/13/17 20:59 Impression (1) Hyperkalemia (2) ESRD on hemodialysis AVF with small area of surrounding ecchymosis suggestive of recent infiltration. 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 Hyperkalemia may be related to recirculation during HD. Recommendations -- Patient was dialyzed for 4 hours early this am. There were no complications except for borderline venous pressure on HD (200 mm HG at Qb 400 cc/min). Potassium has corrected -- Doppler of AVF reveals thrombus in venous limb but no high grade stenosis. Patient did recently require revision of pseudoaneurysm. Will ask vascular surgery to assess. -- Records from [facility] unit obtained and reviewed this am. No complications reported during last OP treatment. -- Medical management discussed w/ ICU team this am: Hold HD today. Will ask vascular surgery to assess AVF. ICU team to speak with Cardiology about possible AICD due to recurrent hyperkalemia w/ arrhythmia 30 minutes critical care time provided. This was necessary to evaluate patient , discuss management w/ ICU teams
[2017-05-14] MEDS ORDERED: HYDROCODONE/ACETAMIN 5/325MG TAB PO PRN (16:00)
[2017-05-14] MEDS ORDERED: CARVEDILOL 25 MG TAB PO ONE (16:15)
--- NOTE | 2017-05-14 16:19 | Hospitalist Progress Note ---
Hospitalist Progress Note Date of Service May 14, 2017. (Sandra Riddle CRNP) Subjective Pt evaluation today including: conversation w/ patient, physical exam, chart review, lab review, review of inpatient medication list Voiding: no voiding problems Mr. Clay is in pain in his right lower extremity at his I/O site which has been removed. He has little appetite due to the pain. ROS Constitutional: no chills, aches, sweats or fever Respiratory: no sob,cough, sputum, or wheezing Cardiac: no chest pain, palpitations, edema, orthopnea or lightheadedness GI: no abdominal pain, nausea, vomiting, diarrhea or constipation : no dysuria or hesitancy Extremities: no joint pain or weakness Skin: no rash All other systems reviewed and negative (Sandra Riddle CRNP) Medications Medications Administered Medications (Trade) Dose Ordered Sig/Moises Route Start Time Stop Time Status Last Admin Dose Admin Lidocaine HCl (Lidocaine 2% 20MG/Ml Syringe) 100 mg STK-MED ONCE IV 05/13/17 23:22 05/13/17 23:23 DC 05/13/17 23:22 100 MG Albuterol Sulfate (Ventolin 0.5% 2.5MG/0.5ML Neb) 7.5 mg STK-MED ONCE INH 05/13/17 23:28 05/13/17 23:29 DC 05/13/17 23:47 7.5 MG Albuterol Sulfate (Ventolin 0.083% 2.5MG/3ML Neb) 2.5 mg STK-MED ONCE INH 05/13/17 23:28 05/13/17 23:29 DC 05/13/17 23:47 2.5 MG Insulin Human Regular (novoLIN-R U-100 PER UNIT) 10 units NOW STAT IV 05/13/17 23:38 05/13/17 23:42 DC 05/13/17 23:45 10 UNITS Dextrose (Dextrose 50% 50ML Syringe) 50 ml NOW STAT IV 05/13/17 23:38 05/13/17 23:42 DC 05/13/17 23:45 50 ML Fentanyl Citrate (Fentanyl Inj) 50 mcg NOW STAT IV 05/14/17 00:25 05/14/17 00:27 DC 05/14/17 00:33 50 MCG Lorazepam (Ativan Inj) 0.5 mg Q4H PRN IV 05/14/17 00:30 06/13/17 00:29 05/14/17 05:51 0.5 MG Heparin Sodium (Porcine) (No Heparin In Dialysis) 1 ea TODAY@0100 N/A 05/14/17 01:00 05/14/17 23:59 05/14/17 12:09 1 EA Diphenhydramine HCl (Benadryl Inj) 50 mg STK-MED ONCE .ROUTE 05/14/17 01:17 05/14/17 01:18 DC 05/14/17 03:02 50 MG Carvedilol (Coreg Tab) 50 mg BID PO 05/14/17 09:00 06/13/17 08:59 05/14/17 12:07 50 MG Gabapentin (Neurontin Cap) 200 mg QAM PO 05/14/17 09:00 06/13/17 08:59 05/14/17 12:08 200 MG Levothyroxine Sodium (Synthroid Tab) 50 mcg DAILYBB PO 05/14/17 06:00 06/13/17 05:59 05/14/17 05:22 50 MCG Sertraline HCl (Zoloft Tab) 50 mg DAILY PO 05/14/17 09:00 06/13/17 08:59 05/14/17 12:11 50 MG Sevelamer HCl (Renagel Tab) 1,600 mg TIDM PO 05/14/17 07:15 06/13/17 07:59 05/14/17 12:09 1,600 MG Hydromorphone HCl (Dilaudid Inj) 0.5 mg STK-MED ONCE .ROUTE 05/14/17 06:51 05/14/17 06:52 DC 05/14/17 06:54 0.25 MG Perflutren Lipid Microsphere (Definity) 2 ml ONE ONCE IV 05/14/17 10:24 05/14/17 10:25 DC 05/14/17 10:25 2 ML Lidocaine (Lidoderm Patch 5%) 1 patch ONE ONCE TD 05/14/17 12:00 05/14/17 12:01 DC 05/14/17 11:57 1 PATCH Hydromorphone HCl (Dilaudid Inj) 0.5 mg ONE ONCE IV 05/14/17 13:36 05/14/17 13:37 DC 05/14/17 13:42 0.5 MG (Sandra Riddle, [employer] UTILITY OPERATOR) Objective Vital Signs Date Time Temp Pulse Resp B/P (MAP) Pulse Ox O2 Delivery O2 Flow Rate FiO2 05/14/17 13:55 107 05/14/17 13:40 105 05/14/17 13:25 110 05/14/17 13:10 112 05/14/17 13:10 112 05/14/17 13:02 118 152/106 (115) 05/14/17 12:40 128 05/14/17 12:10 113 05/14/17 12:05 36.5 117 05/14/17 12:01 110 170/104 (119) 05/14/17 12:00 96 Room Air 05/14/17 11:35 108 05/14/17 11:05 107 05/14/17 11:01 108 155/95 (113) 05/14/17 10:35 107 100 05/14/17 10:05 107 100 05/14/17 10:01 109 152/96 (129) 97 05/14/17 10:00 107 100 05/14/17 09:30 107 99 05/14/17 09:01 113 158/103 (125) 97 05/14/17 09:00 111 97 05/14/17 08:30 111 98 05/14/17 08:01 115 163/100 (113) 99 05/14/17 08:00 Room Air 05/14/17 08:00 95 Room Air 05/14/17 08:00 115 98 05/14/17 07:30 117 100 05/14/17 07:01 121 150/93 (113) 89 05/14/17 07:00 114 88 05/14/17 05:14 36.5 98 159/98 (118) 05/14/17 05:00 106 142/93 05/14/17 04:45 113 141/88 05/14/17 04:30 105 146/99 05/14/17 04:15 98 150/94 05/14/17 04:00 36.3 105 150/92 (111) 100 Room Air 05/14/17 04:00 100 Room Air 05/14/17 04:00 102 145/95 05/14/17 03:46 110 141/98 (112) 96 3/19/18 03:45 107 141/98 05/14/18 03:31 105 143/96 (112) 98 18 03:30 103 143/96 18 03:16 105 150/95 (113) 98 18 03:15 101 150/95 18 03:01 102 143/98 (113) 99 18 03:00 102 99 Room Air 05/14/17 03:00 104 143/98 05/14/17 02:46 36.3 102 14 154/97 (116) 99 Room Air 18 02:45 99 154/97 18 02:31 100 153/96 (115) 100 18 02:30 96 153/97 18 02:16 99 151/98 (115) 99 18 02:15 101 151/98 05/14/17 02:01 100 158/99 (118) 100 05/14/17 02:00 95 154/99 05/14/17 02:00 102 96 18 01:46 96 147/87 (107) 92 18 01:45 94 147/87 18 01:30 96 151/92 18 01:25 91 99 18 01:20 97 154/95 98 18 01:20 97 154/95 (114) 98 18 01:15 92 98 18 01:15 95 155/89 05/14/17 01:10 94 98 18 01:05 97 100 18 01:01 155/95 18 01:01 98 155/95 (115) 100 18 01:00 97 100 18 01:00 97 100 18 01:00 96 154/94 18 00:59 92 162/97 (118) 100 18 00:59 162/97 18 00:45 36.3 100 18 149/94 96 Room Air 05/14/17 00:45 36.3 96 155/89 (111) 05/14/17 00:40 99 16 148/90 98 3/19/18 00:40 100 17 98 3/19/18 00:35 100 16 98 05/14/17 00:31 148/90 05/14/17 00:31 97 148/90 (109) 99 05/14/17 00:30 100 100 05/14/17 00:25 99 14 96 05/14/17 00:24 146/88 05/14/17 00:24 98 19 146/88 (107) 96 05/14/17 00:20 98 15 98 05/14/17 00:16 94 05/14/17 00:15 97 16 100 05/14/17 00:10 92 20 98 05/14/17 00:05 93 24 100 05/14/17 00:00 180 35 99 Non-Rebreather 05/13/17 23:58 83 05/13/17 23:56 176/114 05/13/17 23:55 121 13 100 05/13/17 23:53 166 05/13/17 23:50 137 35 60 05/13/17 23:45 149 32 100 05/13/17 23:40 172 28 98 05/13/17 23:35 193 05/13/17 23:35 190 30 100 Partial Rebreather 15.0 05/13/17 23:30 118 14 05/13/17 23:28 /109 05/13/17 23:25 91 20 05/13/17 23:24 47 05/13/17 23:20 89 29 100 05/13/17 23:20 88 (Sandra Riddle CRNP) Physical Exam Notes: General: no distress Eyes: normal inspection, PERLL Respiratory: chest non tender, clear to auscultation, normal breath sounds, no respiratory distress, no accessory muscle use Cardiac: regular rate and rhythm, no rub or gallop, 3/6 systolic murmur LUSB, no edema, no jvd GI/: active bowel sounds, no abd pain or tenderness, soft, non distended Extremities: normal range of motion, normal strength, non tender Neuro/Psych: alert and oriented x 3, normal mood and affect Skin: normal color, dry (Sandra Riddle CRNP) Laboratory Results Last 24 Hours Test 05/14/17 00:01 05/14/17 00:09 05/14/17 06:03 05/14/17 11:08 Bedside Hemoglobin 13.3 g/dl Bedside Hematocrit 39 % Bedside Sodium 128 mEq/L Bedside Potassium > 9.0 mEq/L Bedside Chloride 94 mEq/L Bedside Total CO2 28 mEq/l Anion Gap mmol/L 15.0 mmol/L 9.0 mmol/L Bedside Blood Urea Nitrogen 83 mg/dl Bedside Creatinine 10.3 mg/dl Bedside Glucose (other) 537 mg/dl Bedside Ionized Calcium ([place]) 1.08 mmol/l White Blood Count 7.63 K/uL 8.63 K/uL Red Blood Count 4.02 M/uL 3.94 M/uL Hemoglobin 13.1 g/dL 12.8 g/dL Hematocrit 38.9 % 38.2 % Mean Corpuscular Volume 96.8 fL 97.0 fL Mean Corpuscular Hemoglobin 32.6 pg 32.5 pg Mean Corpuscular Hemoglobin Concent 33.7 g/dl 33.5 g/dl Platelet Count 176 K/uL 147 K/uL Mean Platelet Volume 10.0 fL 8.6 fL Neutrophils (%) (Auto) 64.9 % Lymphocytes (%) (Auto) 29.5 % Monocytes (%) (Auto) 2.6 % Eosinophils (%) (Auto) 2.4 % Basophils (%) (Auto) 0.3 % Neutrophils # (Auto) 4.96 K/uL Lymphocytes # (Auto) 2.25 K/uL Monocytes # (Auto) 0.20 K/uL Eosinophils # (Auto) 0.18 K/uL Basophils # (Auto) 0.02 K/uL RDW Standard Deviation 58.0 fL 59.1 fL RDW Coefficient of Variation 16.4 % 16.6 % Immature Granulocyte % (Auto) 0.3 % Immature Granulocyte # (Auto) 0.02 K/uL Red Blood Cell Morphology Unremarkable Sodium Level 135 mmol/L 136 mmol/L Potassium Level 7.7 mmol/L 4.2 mmol/L Chloride Level 96 mmol/L 97 mmol/L Carbon Dioxide Level 24 mmol/L 30 mmol/L Blood Urea Nitrogen 65 mg/dl 18 mg/dl Creatinine 11.10 mg/dl 4.58 mg/dl Estimated GFR () 6.8 19.7 Estimated GFR (Non- 5.8 17.0 BUN/Creatinine Ratio 5.8 3.9 Random Glucose 224 mg/dl 78 mg/dl Calcium Level 10.8 mg/dl 8.7 mg/dl Phosphorus Level 7.8 mg/dl 5.3 mg/dl Magnesium Level 2.6 mg/dl 2.1 mg/dl Total Bilirubin 0.9 mg/dl Aspartate Amino Transf (AST/SGOT) 30 U/L Alanine Aminotransferase (ALT/SGPT) 41 U/L Alkaline Phosphatase 134 U/L Troponin I 0.016 ng/ml Pro-B-Type Natriuretic Peptide > 48537 pg/ml Total Protein 7.6 gm/dl Albumin 3.4 gm/dl Globulin 4.2 gm/dl Albumin/Globulin Ratio 0.8 Est Creatinine Clear Calc Drug Dose 23.4 ml/min Hepatitis B Surface Antigen NEG Hepatitis B Surface Antibody POS (Sandra Riddle ., [employer]ILL UTILITY OPERATOR) Assessment and Plan 21 y/o M with complex history including membranous glomerulonephropathy - ESRD since age 16, ascending aortic dissection 02/11, HTN, hypothyroid, previous episodes of critical hyperkalemia requiring emergent dialysis. The pt reported nausea, vomiting and weakness PLAN REP which progressed to somnolence. EMS was alerted. On arrival to the pt's house it was reported that he was hypotensive and bradycardic, initially requiring pacing. On arrival to the ER, an EKG displayed wide-complex tachycardia. Initially it was thought that this was VT, however, an iSTAT K came back at 9.0 and the EKG therefore may have represented sine waves. The pt was provided with Calcium gluconate, bicarb, insulin/D50. Nephrology was notified to request emergent dialysis. ESRD/hyperK / Vtach - symptomatic on admission, initially with bradycardia then wide complex tachycardia - likely sine waves. EKG largely normalized following treatment for hyperK. Emergent dialysis given. K today is 4.2 - nephrology consulted - they had concern about fistula and ordered an US which showed improved thrombus. They also consulted vascular - consult cardiology about ICD placement given that this is his second episode of dysrhythmia due to hyperkalemia HTN - restart lisinopril and home carvedilol as patient is tachycardic and hypertensive. Confirmed home dose of 50 mg bid with patient's mother. Hypothyroid - cont Synthroid Leg pain secondary to IO - continue lidocaine patch - oxycodone prn - right tib/fib xray Full code DVT proph - heparin subq transfer to PCU (Sandra Riddle ., RAMIRO) Reviewed: Pt Seen/Exam by Me (Roseanne Ross MD) History [employer] UTILITY OPERATOR Supervision Note: I was present with RAMIRO Riddle during the history and exam. I discussed the case with the resident and agree with the findings and plan as documented in the note. Any exceptions or clarifications are listed here: Pt with right leg pain at site of previous IO and radiating down anterior right leg. No other complaints. Received emergent HD last night for severe hyperkalemia. 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 Treated with Calcium gluconate, D10/insulin, Bicarb, and emergent dialysis. Now improved. -check xray of tibia but doubt fracture -pain meds prn -Appreciate Assistant Football Coach and Nephrology management -Consult Cardio to see about need for AICD for primary prevention given recurrent h/o severe hyperkalemia -restart home antihypertensives, beta delma for hTN and tachycardia Documented By: Roseanne Ross (Roseanne Ross MD)
[2017-05-14] MEDS: OXYCODONE HCL IR 5 MG TAB (IMMEDIATE RELEASE) PO PRN ×2 (16:59→20:59)
--- NOTE | 2017-05-14 20:11 | DIAGNOSTIC IMAGING REPORT ---
R TIBIA/FIBULA 2 VIEWS ROUTINE CLINICAL HISTORY: Right lower leg pain COMPARISON: None. DISCUSSION: No fractures or dislocations are visualized. No radiopaque foreign bodies are evident. IMPRESSION: 1. No evidence of fracture 2. No radiopaque foreign bodies identified Electronically signed by: Santosh Reed M.D. 05/14/2017 8:10 PM Dictated Date/Time: 05/14/2017 8:09 PM
[2017-05-14] MEDS: ATORVASTATIN 40 MG TAB PO SCH (21:00)
[2017-05-14] MEDS: GABAPENTIN 300 MG CAP PO SCH (21:00)
[2017-05-14] MEDS ORDERED: NORTRIPTYLINE 50 MG PO PRN (21:45)
[2017-05-15] VITALS (30 sets, daily range): BP systolic 82–153; BP diastolic 45–116; PULSE 86–133; TEMP 36.5–38.6; O2SAT 93–97
[2017-05-15] MEDS ORDERED: MoRPHine SULFATE 4 MG/ML 1 ML CARP\\VIAL ONE (01:11)
[2017-05-15] MEDS: OXYCODONE HCL IR 5 MG TAB (IMMEDIATE RELEASE) PO PRN ×2 (04:14→13:39)
[2017-05-15 05:59] LABS: BASO % 0.6 %; BASO ABS # 0.04 K/uL (0-0.2); EOS % 6.5 %; EOS ABS # 0.47 K/uL (0-0.5); HEMATOCRIT 37.9 % (42-52); HEMOGLOBIN 12.1 g/dL (14.0-18.0); IG# 0.01 K/uL (0.00-0.02); LYMPH % 17.2 %; LYMPH ABS # 1.24 K/uL (1.2-3.4); MEAN CORPUSCULAR HEMOGLOBIN 31.9 pg (25-34); MEAN CORPUSCULAR HGB CONC 31.9 g/dl (32-36); MEAN PLATELET VOLUME 9.7 fL (7.4-10.4); MONO % 15.4 %; MONO ABS # 1.11 K/uL (0.11-0.59); NEUT % 60.2 %; NEUT ABS # 4.35 K/uL (1.4-6.5); PLATELET COUNT 128 K/uL (130-400); RED CELL DISTRIBUTION WIDTH CV 16.6 % (11.5-14.5); RED CELL DISTRIBUTION WIDTH SD 60.5 fL (36.4-46.3); WHITE BLOOD COUNT 7.22 K/uL (4.8-10.8)
[2017-05-15] MEDS: LEVOTHYROXINE 50 MCG TAB PO SCH (06:00)
[2017-05-15] MEDS: HEPARIN SOD 5000 UNIT/0.5 ML CARP SQ SCH ×3 (06:00→22:03)
[2017-05-15 06:46] LABS: CALCIUM 9.4 mg/dl (8.5-10.1); CREATININE 8.9 mg/dl (0.60-1.40); PHOSPHORUS 8.8 mg/dl (2.5-4.9); POTASSIUM 6.1 mmol/L (3.5-5.1)
[2017-05-15] MEDS ORDERED: SODIUM BICARB 8.4% INJ 50 MEQ/50 ML SYR IV ONE (07:02)
[2017-05-15] MEDS ORDERED: SODIUM CHLORIDE 0.9% 10ML FLUSH IV ONE (07:02)
[2017-05-15] MEDS ORDERED: CALCIUM CHLORIDE 10% 10 ML SYR IV ONE (07:02)
[2017-05-15] MEDS ORDERED: LIDOCAINE 2% 20 MG/ML 5ML SYR IV ONE (07:02)
[2017-05-15] MEDS: MoRPHine SULFATE 4 MG/ML 1 ML CARP\\VIAL IV PRN ×2 (07:05→11:41)
[2017-05-15] MEDS: LIDODERM (LIDOCAINE) PATCH 5% TD SCH (07:59)
[2017-05-15] MEDS ORDERED: HEPARIN SOD (PORCINE) 1000 UNIT/ML 10 ML VIAL IV SCH (08:00)
[2017-05-15] MEDS: SEVELAMER HYDROCH 800 MG TAB PO SCH ×3 (08:06→17:16)
[2017-05-15] MEDS ORDERED: HYDROmorphone INJ 0.5 MG/0.5 ML SYR ONE (08:57)
[2017-05-15] MEDS ORDERED: LISINOPRIL 40 MG TAB PO SCH (09:00)
[2017-05-15] MEDS ORDERED: NURSING VERBAL MED ORDER ONE ×2 (09:00→17:00)
[2017-05-15] MEDS ORDERED: HYDROmorphone INJ 0.5 MG/0.5 ML SYR IV SCH (09:30)
[2017-05-15] MEDS ORDERED: DiphenhydrAMINE HCL 50 MG/ML VIAL IV STA (09:47)
--- NOTE | 2017-05-15 09:51 | Medical Consult ---
Consultation Note Date of Service May 15, 2017. Consultation Note Chief Complaint Left arm malfunctioning AVF, ESRD on HD History of Present Illness The patient is a 22 year old male with ESRD on HD since age 16, seen today for malfunctioning AVF and hyperkalemia. 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 Pt now with repeated episodes of extreme hyperkalemia, admitted with K of 7.7. Eval of LUE AVF by US demonstrates some old thrombus, but no definite stenosis. Pt admits chronic pain and fatigue. Pt denies fever, chills , chest estrada, SOB, abd pain, N/V, rest pain claudication, other complaints. Vitals Vital Signs Past 12 Hours Allergies Coded Allergies: Penicillins (Unverified Allergy, Severe, FACE SWELLS, 12/08/16) Amoxicillin (Verified Allergy, Unknown, ?, 12/08/16) Home Medications Scheduled Carvedilol (Coreg), 50 MG PO BID Ferric Citrate (Auryxia), 420 MG PO TIDM Gabapentin (Neurontin), 100 MG PO Q6H Gabapentin (Neurontin), 300 MG PO HS Levothyroxine Sodium (Levothyroxine Sodium), 50 MCG PO QAM Lisinopril (Lisinopril), 20 MG PO DAILY Nortriptyline (Pamelor), 50 MG PO DAILY Sertraline (Zoloft), 50 MG PO DAILY Sevelamer Carbonate (Renvela), 1,600 MG PO TIDM Triamcinolone Acetonide (Nasal (Nasacort Allergy 24Hr), 2 SPRAYS MERCEDEZ DAILY Scheduled PRN Saline ([place] Nasal [place]), 2 SPRAYS NA Q1H PRN for Nasal Congestion Sevelamer Carbonate (Renvela), 800 MG PO DAILY PRN for With a Snack Problem List Medical Problems: (1) Cardiopulmonary arrest with successful resuscitation (2) Chest pain (3) Chronic renal failure syndrome (4) Diabetic complication (5) Encounter for hemodialysis for ESRD (6) ESRD on hemodialysis (7) History of - hypertension (8) Hyperkalemia (9) Hyperkalemia (10) Hypertension (11) Thrombosis of arteriovenous dialysis fistula Surgical Problems: (1) Aortic dissection (2) Renal transplant, status post Surgical / Medical History Hx Cardiac Surgery: Yes (Aortic dissection repair) Hx Abdominal Surgery: Yes (renal transplant; h/o heart/lung bypass machine) Hx Cancer Surgery: No Hx Thoracic Surgery: No Hx Orthopedic: Yes (LLE for compartment syndrome) Hx Urinary Tract Surgery: Yes (Renal transplant) Past Medical/Surgical History: Kidney Disease Family History Cancer Hypertension Social History Smoking Status: Never Smoker Hx Tobacco Use In Past Year?: No Hx Alcohol Use - Type & Amnt: No Hx Substance Use -Type & Amnt: No ROS: Vascular H&P v2 Review of Systems Constitutional: No chills, No diaphoresis, No fever, No malaise, No weakness, No weight gain, No weight loss, No sweats, No fatigue, No problem reported Eyes: No discharge, No blurred vision, No double vision, No eye pain, No tearing, No itching, No photophobia, No redness, No visual changes, No dryness, No irritation, No problem reported Respiratory: No cough, No cyanosis, No SAMSON, No hemoptysis, No orthopnea, No PND , No short of breath, No sputum production, No stridor, No wheezing, No dyspnea , No problem reported Cardiovascular: No chest pain, No chest tightness, No chest pressure, No palpitations, No syncope, No diaphoresis, No edema, No intermittent claudication , No orthopnea, No cyanosis, No mumur, No lightheadedness, No paroxysmal nocturnal dyspnea, No problem reported Gastrointestinal: No abdominal pain, No constipation, No diarrhea, No nausea, No vomiting, No anorexia, No appetite changes, No belching, No flatulence, No food intolerance, No hematemesis, No hemorrhoids, No hematochezia, No stool changes, No heartburn, No indigestion, No dysphagia, No rectal bleeding, No problem reported Genitourinary - Male: No impotence, No penile discharge, No penile itching, No rash, No testicular pain, No testicular swelling, No hematuria, No difficulty urinating, No problem reported Musculoskeletal: No back pain, No gout, No joint pain, No joint swelling, No muscle pain, No muscle stiffness, No muscle weakness, No neck pain, No problem reported Neurologic: No dizziness, No weakness, No headache, No lethargy, No numbness, No paresthesia, No pre-existing deficit, No seizures, No tics, No tingling, No tremors, No vertigo, No memory loss, No LOC, No problem reported Psychiatric: No anxiety, No alcohol abuse, No auditory hallucinations, No depression, No drug abuse, No homicidal ideation, No mood changes, No suicidal ideation, No visual hallucinations, No problem reported Physical Ex: Vascular H&P v2 Physical Exam Constitutional: General Apperance: heathly-appearing, well-nourished, well-developed Level of Distress: NAD Ambulation: ambulating normally Psychiatric: Mental Status: active & alert, normal mood, normal affect Orientation: oriented except where noted, to time, to place, to person Memory: recent memory normal, remote memory normal Head: normocephalic Neck: supple Lungs: Auscultation: breath sounds normal Cardiovascular: Heart Auscultation: RRR Peripheral Pulses: Radial Pulse: normal on the left, normal on the right Femoral Pulse: normal on the left, normal on the right Posterior Tibialis Pulse: normal on the left, normal on the right Dorsalis Pedis Pulse: normal on the left, normal on the right Abdomen: Inspection & Palpation: soft Musculoskeletal: normal Extremities: Upper Right: no cyanosis, no edema, no varicosities, no palpable cord, no clubbing, no ulcers, no mottling Upper Left: no cyanosis, no edema, no varicosities, no palpable cord, no clubbing, no ulcers, no mottling, + thrill/bruit over LUE AVF Lower Right: no cyanosis, no edema, no varicosities, no palpable cord, no clubbing, no ulcers, no mottling Lower Left: no cyanosis, no edema, no varicosities, no palpable cord, no clubbing, no ulcers, no mottling Neurologic: Cranial Nerves: grossly intact Sensation: grossly intact A&P: Vascular H&P v2 Assessment and Plan Imp: Malfuncitoning LUE AVF with thrombus ESRD on HD Pt discussed with Dr Sierra, recommends pt undergo LUE fistulagram/ mechanical thrombectomy in OR. Hyperkalemia must be corrected to undergo procedure. If unable to correct with HD through AVF, then consideration should be made for temporary catheter until safe to perform thrombectomy. Timing TBD.
--- NOTE | 2017-05-15 10:41 | Nephrology Progress Note ---
Nephrology Progress Note Date of Service May 15, 2017. Chief Complaint ESRD requiring HD Subjective Mr. Clay was seen & examined in the ICU this morning. He denies angina, dyspnea or palpitations. Serum potassium is again trending up. Patient is agreeable to HD this am. Review of Systems Constitutional: No fever Cardiovascular: No chest pain Respiratory: No dyspnea at rest Abdomen: No pain, No nausea, No vomiting Extremities: No leg edema A complete review of systems was performed. Pertinent positives are noted above. All other systems are negative. Vital Signs Last 8 Hrs Date Time Temp Pulse Resp B/P (MAP) Pulse Ox O2 Delivery O2 Flow Rate FiO2 05/15/17 08:00 36.8 100 16 122/81 (95) 93 Room Air 05/15/17 08:00 Room Air 05/15/17 04:07 37.1 93 16 134/82 (99) 97 Room Air 05/15/17 04:00 97 Room Air Last Recorded Weight Weight (Kilograms): 63.700 Physical Exam General Appearance: + mild distress (discomfort from recent interosseous needle site) Head: normocephalic, atraumatic Eyes: PERRL, EOMI Neck: no adenopathy Respiratory/Chest: lungs clear, no respiratory distress Cardiovascular: regular rate, rhythm Abdomen/GI: normal bowel sounds, non tender, soft Extremities/Musculoskelatal: no calf tenderness, no pedal edema, + pertinent finding (AVF + bruit) Neurologic/Psych: alert, oriented x 3 Family History Cancer Hypertension Negative for CKD/ESRD Social History Smoking Status: Never smoker Drug Use: none Marital Status: single 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 Lives with mother Laboratory Results Past 24 Hours 05/15/17 05:39 Red Blood Count 3.79, Mean Corpuscular Volume 100.0, Mean Corpuscular Hemoglobin 31.9, Mean Corpuscular Hemoglobin Concent 31.9, Mean Platelet Volume 9.7, Neutrophils (%) (Auto) 60.2, Lymphocytes (%) (Auto) 17.2, Monocytes (%) ( Auto) 15.4, Eosinophils (%) (Auto) 6.5, Basophils (%) (Auto) 0.6, Neutrophils # (Auto) 4.35, Lymphocytes # (Auto) 1.24, Monocytes # (Auto) 1.11, Eosinophils # ( Auto) 0.47, Basophils # (Auto) 0.04 05/15/17 05:39 Test 05/14/17 11:08 05/14/17 12:02 05/15/17 05:39 05/15/17 07:47 Hepatitis B Surface Antigen NEG (NEG) Hepatitis B Surface Antibody POS Bedside Glucose 110 mg/dl (70-99) White Blood Count 7.22 K/uL (4.8-10.8) Red Blood Count 3.79 M/uL (4.7-6.1) Hemoglobin 12.1 g/dL (14.0-18.0) Hematocrit 37.9 % (42-52) Mean Corpuscular Volume 100.0 fL (80-100) Mean Corpuscular Hemoglobin 31.9 pg (25-34) Mean Corpuscular Hemoglobin Concent 31.9 g/dl (32-36) Platelet Count 128 K/uL (130-400) Mean Platelet Volume 9.7 fL (7.4-10.4) Neutrophils (%) (Auto) 60.2 % Lymphocytes (%) (Auto) 17.2 % Monocytes (%) (Auto) 15.4 % Eosinophils (%) (Auto) 6.5 % Basophils (%) (Auto) 0.6 % Neutrophils # (Auto) 4.35 K/uL (1.4-6.5) Lymphocytes # (Auto) 1.24 K/uL (1.2-3.4) Monocytes # (Auto) 1.11 K/uL (0.11-0.59) Eosinophils # (Auto) 0.47 K/uL (0-0.5) Basophils # (Auto) 0.04 K/uL (0-0.2) RDW Standard Deviation 60.5 fL (36.4-46.3) RDW Coefficient of Variation 16.6 % (11.5-14.5) Immature Granulocyte % (Auto) 0.1 % Immature Granulocyte # (Auto) 0.01 K/uL (0.00-0.02) Anion Gap 11.0 mmol/L (3-11) Est Creatinine Clear Calc Drug Dose 11.8 ml/min Estimated GFR () 8.8 Estimated GFR (Non- 7.6 BUN/Creatinine Ratio 5.3 (10-20) Calcium Level 9.4 mg/dl (8.5-10.1) Phosphorus Level 8.8 mg/dl (2.5-4.9) Magnesium Level 2.4 mg/dl (1.8-2.4) Allergies Coded Allergies: Penicillins (Unverified Allergy, Severe, FACE SWELLS, 05/14/17) Amoxicillin (Verified Allergy, Unknown, ?, 05/14/17) Medications Current Inpatient Medications Medications (Trade) Dose Ordered Sig/Moises Route Start Time Stop Time Status Last Admin Dose Admin Lorazepam (Ativan Inj) 0.5 mg Q4H PRN IV 05/14/17 00:30 06/13/17 00:29 05/14/17 05:51 0.5 MG Atorvastatin Calcium (Lipitor Tab) 40 mg QPM PO 05/14/17 21:00 06/13/17 20:59 05/14/17 21:00 40 MG Carvedilol (Coreg Tab) 50 mg BID PO 05/14/17 09:00 06/13/17 08:59 05/14/17 21:00 50 MG Gabapentin (Neurontin Cap) 200 mg QAM PO 05/14/17 09:00 06/13/17 08:59 05/14/17 12:08 200 MG Gabapentin (Neurontin Cap) 300 mg HS PO 05/14/17 21:00 06/13/17 20:59 05/14/17 21:00 300 MG Levothyroxine Sodium (Synthroid Tab) 50 mcg DAILYBB PO 05/14/17 06:00 06/13/17 05:59 05/15/17 06:00 50 MCG Sertraline HCl (Zoloft Tab) 50 mg DAILY PO 05/14/17 09:00 06/13/17 08:59 05/14/17 12:11 50 MG Miscellaneous Information (Order Awaiting Action) 1 ea QS N/A 05/14/17 08:00 06/13/17 07:59 Sevelamer HCl (Renagel Tab) 1,600 mg TIDM PO 05/14/17 07:15 06/13/17 07:59 05/15/17 08:06 1,600 MG Heparin Sodium (Porcine) (Heparin Sq 5000 Unit/0.5ml) 5,000 unit Q8 SQ 05/14/17 09:00 06/13/17 08:59 Lidocaine (Lidoderm Patch 5%) 1 patch QAM TD 05/15/17 09:00 06/14/17 08:59 Miscellaneous (Remove Lidoderm Patch) 1 ea DAILY@21 N/A 05/14/17 21:00 06/13/17 20:59 05/14/17 20:23 1 EA Lisinopril (Zestril Tab) 40 mg QAM PO 05/15/17 09:00 06/14/17 08:59 Oxycodone HCl (Roxicodone Immediate Rel Tab) 5 mg Q4H PRN PO 05/14/17 16:30 05/28/17 16:29 05/15/17 04:14 5 MG Non-Formulary Medication (Non-Formulary Patient'S Own Med) 1 ea DAILY PRN PO 05/14/17 21:45 06/13/17 21:44 Morphine Sulfate (MoRPHine SULFATE INJ) 4 mg Q4H PRN IV 05/15/17 01:15 05/29/17 01:14 05/15/17 07:05 4 MG Hydromorphone HCl (Dilaudid Inj) 0.5 mg TODAY@0930 IV 05/15/17 09:30 05/15/17 11:00 Impression (1) Hyperkalemia (2) ESRD on hemodialysis AVF with small area of surrounding ecchymosis suggestive of recent infiltration. 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 Hyperkalemia may be related to recirculation during HD. Recommendations -- Management discussed w/ ICU team this am. Will provide HD today (monitored unit) for correction of hyperkalemia -- Doppler of AVF reveals thrombus in venous limb but no high grade stenosis. Patient did recently require revision of pseudoaneurysm. I have asked vascular surgery to perform fistulogram to assess for central venous stenosis due to recurrent hyperkalemia -- Records from [place] HD unit obtained and reviewed this am. No complications reported during last OP treatment. -- Await Cardiology input on possible AICD due to recurrent hyperkalemia w/ arrhythmia 30 minutes critical care time provided. This was necessary to evaluate patient , discuss management w/ ICU and vascular surgery teams
[2017-05-15] MEDS: HEPARIN SOD (PORCINE) 1000 UNIT/ML 10 ML VIAL IV SCH ×2 (11:30→12:30)
--- NOTE | 2017-05-15 13:03 | Hospitalist Progress Note ---
Hospitalist Progress Note Date of Service May 15, 2017. (Sandra Riddle .RAMIRO) Subjective Pt evaluation today including: conversation w/ patient, physical exam, chart review, lab review, review of inpatient medication list Voiding: no voiding problems Mr. lCay is currently being dialyzed in his room. He continues to have 6/10 pain at his IO site that he says started as soon as the IO was placed. Otherwise he doesn't have complaints ROS Constitutional: no chills, aches, sweats or fever Respiratory: no sob,cough, sputum, or wheezing Cardiac: no chest pain, palpitations, edema, orthopnea or lightheadedness GI: no abdominal pain, nausea, vomiting, diarrhea or constipation : no dysuria or hesitancy Extremities: no joint pain or weakness Skin: no rash All other systems reviewed and negative (Sandra Riddle .RAMIRO) Medications Medications Administered Medications (Trade) Dose Ordered Sig/Moises Route Start Time Stop Time Status Last Admin Dose Admin Lidocaine HCl (Lidocaine 2% 20MG/Ml Syringe) 100 mg STK-MED ONCE IV 05/13/17 23:22 05/13/17 23:23 DC 05/13/17 23:22 100 MG Albuterol Sulfate (Ventolin 0.5% 2.5MG/0.5ML Neb) 7.5 mg STK-MED ONCE INH 05/13/17 23:28 05/13/17 23:29 DC 05/13/17 23:47 7.5 MG Albuterol Sulfate (Ventolin 0.083% 2.5MG/3ML Neb) 2.5 mg STK-MED ONCE INH 05/13/17 23:28 05/13/17 23:29 DC 05/13/17 23:47 2.5 MG Insulin Human Regular (novoLIN-R U-100 PER UNIT) 10 units NOW STAT IV 05/13/17 23:38 05/13/17 23:42 DC 05/13/17 23:45 10 UNITS Dextrose (Dextrose 50% 50ML Syringe) 50 ml NOW STAT IV 05/13/17 23:38 05/13/17 23:42 DC 05/13/17 23:45 50 ML Fentanyl Citrate (Fentanyl Inj) 50 mcg NOW STAT IV 05/14/17 00:25 05/14/17 00:27 DC 05/14/17 00:33 50 MCG Lorazepam (Ativan Inj) 0.5 mg Q4H PRN IV 05/14/17 00:30 06/13/17 00:29 05/14/17 05:51 0.5 MG Heparin Sodium (Porcine) (No Heparin In Dialysis) 1 ea TODAY@0100 N/A 05/14/17 01:00 05/14/17 23:59 DC 05/14/17 12:09 1 EA Diphenhydramine HCl (Benadryl Inj) 50 mg STK-MED ONCE .ROUTE 05/14/17 01:17 05/14/17 01:18 DC 05/14/17 03:02 50 MG Atorvastatin Calcium (Lipitor Tab) 40 mg QPM PO 05/14/17 21:00 06/13/17 20:59 05/14/17 21:00 40 MG Carvedilol (Coreg Tab) 50 mg BID PO 05/14/17 09:00 06/13/17 08:59 05/14/17 21:00 50 MG Gabapentin (Neurontin Cap) 200 mg QAM PO 05/14/17 09:00 06/13/17 08:59 05/14/17 12:08 200 MG Gabapentin (Neurontin Cap) 300 mg HS PO 05/14/17 21:00 06/13/17 20:59 05/14/17 21:00 300 MG Levothyroxine Sodium (Synthroid Tab) 50 mcg DAILYBB PO 05/14/17 06:00 06/13/17 05:59 05/15/17 06:00 50 MCG Sertraline HCl (Zoloft Tab) 50 mg DAILY PO 05/14/17 09:00 06/13/17 08:59 05/14/17 12:11 50 MG Sevelamer HCl (Renagel Tab) 1,600 mg TIDM PO 05/14/17 07:15 06/13/17 07:59 05/15/17 08:06 1,600 MG Hydromorphone HCl (Dilaudid Inj) 0.5 mg STK-MED ONCE .ROUTE 05/14/17 06:51 05/14/17 06:52 DC 05/14/17 06:54 0.25 MG Perflutren Lipid Microsphere (Definity) 2 ml ONE ONCE IV 05/14/17 10:24 05/14/17 10:25 DC 05/14/17 10:25 2 ML Miscellaneous (Remove Lidoderm Patch) 1 ea DAILY@21 N/A 05/14/17 21:00 06/13/17 20:59 05/14/17 20:23 1 EA Lidocaine (Lidoderm Patch 5%) 1 patch ONE ONCE TD 05/14/17 12:00 05/14/17 12:01 DC 05/14/17 11:57 1 PATCH Hydromorphone HCl (Dilaudid Inj) 0.5 mg ONE ONCE IV 05/14/17 13:36 05/14/17 13:37 DC 05/14/17 13:42 0.5 MG Oxycodone HCl (Roxicodone Immediate Rel Tab) 5 mg Q4H PRN PO 05/14/17 16:30 05/28/17 16:29 05/15/17 04:14 5 MG Morphine Sulfate (MoRPHine SULFATE INJ) 4 mg Q4H PRN IV 05/15/17 01:15 05/29/17 01:14 05/15/17 11:41 4 MG Morphine Sulfate (MoRPHine SULFATE INJ) 4 mg STK-MED ONCE .ROUTE 05/15/17 01:11 05/15/17 01:12 DC 05/15/17 01:14 4 MG Hydromorphone HCl (Dilaudid Inj) 0.5 mg STK-MED ONCE .ROUTE 05/15/17 08:57 05/15/17 08:58 DC 05/15/17 08:57 0.5 MG Diphenhydramine HCl (Benadryl Inj) 25 mg NOW STAT IV 05/15/17 09:47 05/15/17 10:16 DC 05/15/17 10:45 25 MG (Sandra Riddle CRNP) Objective Vital Signs Date Time Temp Pulse Resp B/P (MAP) Pulse Ox O2 Delivery O2 Flow Rate FiO2 05/15/17 12:30 113 134/68 05/15/17 12:15 117 125/67 05/15/17 12:01 114 149/82 05/15/17 12:00 93 Room Air 05/15/17 11:45 115 128/82 05/15/17 11:30 108 103/45 05/15/17 11:15 109 94/52 3/20/18 11:00 108 113/56 05/15/17 10:45 106 109/60 05/15/17 10:34 102 145/85 05/15/17 10:30 37.5 96 146/86 (106) 05/15/17 08:00 36.8 100 16 122/81 (95) 93 Room Air 05/15/17 08:00 Room Air 05/15/17 04:07 37.1 93 16 134/82 (99) 97 Room Air 05/15/17 04:00 97 Room Air 05/15/17 00:18 37.2 96 22 132/86 (101) 96 Room Air 05/14/17 23:59 97 Room Air 05/14/17 20:32 37.3 94 20 127/80 (96) 97 Room Air 05/14/17 20:00 93 Room Air 05/14/17 16:00 93 Room Air 05/14/17 15:30 37.5 105 20 98/67 (77) 93 Room Air 05/14/17 13:55 107 05/14/17 13:40 105 05/14/17 13:25 110 05/14/17 13:10 112 05/14/17 13:10 112 05/14/17 13:02 118 152/106 (115) (Sandra Riddle CRNP) Physical Exam Notes: General: no distress Eyes: normal inspection, PERLL Respiratory: chest non tender, clear to auscultation, normal breath sounds, no respiratory distress, no accessory muscle use Cardiac: regular rate and rhythm, no rub or gallop, no murmur, no edema, no jvd GI/: active bowel sounds, no abd pain or tenderness, soft, non distended Extremities: normal range of motion, normal strength, non tender Neuro/Psych: alert and oriented x 3, normal mood and affect Skin: normal color, dry, no ecchymosis, edema or erythema around IO site, palpable pedal pulse distal to pain (Sandra Riddle CRNP) Laboratory Results Last 24 Hours Test 05/15/17 05:39 05/15/17 07:47 White Blood Count 7.22 K/uL Red Blood Count 3.79 M/uL Hemoglobin 12.1 g/dL Hematocrit 37.9 % Mean Corpuscular Volume 100.0 fL Mean Corpuscular Hemoglobin 31.9 pg Mean Corpuscular Hemoglobin Concent 31.9 g/dl Platelet Count 128 K/uL Mean Platelet Volume 9.7 fL Neutrophils (%) (Auto) 60.2 % Lymphocytes (%) (Auto) 17.2 % Monocytes (%) (Auto) 15.4 % Eosinophils (%) (Auto) 6.5 % Basophils (%) (Auto) 0.6 % Neutrophils # (Auto) 4.35 K/uL Lymphocytes # (Auto) 1.24 K/uL Monocytes # (Auto) 1.11 K/uL Eosinophils # (Auto) 0.47 K/uL Basophils # (Auto) 0.04 K/uL RDW Standard Deviation 60.5 fL RDW Coefficient of Variation 16.6 % Immature Granulocyte % (Auto) 0.1 % Immature Granulocyte # (Auto) 0.01 K/uL Sodium Level 134 mmol/L Potassium Level 6.1 mmol/L Chloride Level 94 mmol/L Carbon Dioxide Level 28 mmol/L Anion Gap 11.0 mmol/L Blood Urea Nitrogen 47 mg/dl Creatinine 8.90 mg/dl Est Creatinine Clear Calc Drug Dose 11.8 ml/min Estimated GFR () 8.8 Estimated GFR (Non- 7.6 BUN/Creatinine Ratio 5.3 Random Glucose 96 mg/dl Calcium Level 9.4 mg/dl Phosphorus Level 8.8 mg/dl Magnesium Level 2.4 mg/dl (Sandra Riddle ., RAMIRO) Assessment and Plan 21 y/o M with complex history including membranous glomerulonephropathy - ESRD since age 16, ascending aortic dissection 02/11, HTN, hypothyroid, previous episodes of critical hyperkalemia requiring emergent dialysis. 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 EMS was alerted. On arrival to the pt's house it was reported that he was hypotensive and bradycardic, initially requiring pacing. On arrival to the ER, an EKG displayed wide-complex tachycardia. Initially it was thought that this was VT, however, an iSTAT K came back at 9.0 and the EKG therefore may have represented sine waves. The pt was provided with Calcium gluconate, bicarb, insulin/D50. Nephrology was notified to request emergent dialysis. ESRD/hyperK / Vtach - symptomatic on admission, initially with bradycardia then wide complex tachycardia - likely sine waves. EKG largely normalized following treatment for hyperK. Emergent dialysis given. K today is 6.0 - patient dialyzed - nephrology consulted - they had concern about fistula and ordered an US which showed improved thrombus. Vascular surgery consulted and they will take him to the OR tomorrow. - consulted cardiology about ICD placement given that this is his second episode of dysrhythmia due to hyperkalemia - Continues to have sinus tachycardia in the 1teens on the monitor HTN - restarted lisinopril and home carvedilol as patient is tachycardic and hypertensive. 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 I discussed the case with the resident and agree with the findings and plan as documented in the note. Any exceptions or clarifications are listed here: Continues to have severe right leg pain from the knee to the ankle. Now has spiked a fever. No headache or neck pain, mild cough, no chest pain, no abd pain or GI symptoms. Has a right femoral CVC in place. Vitals reviewed mild idstress with pain when right leg is palpated Reg rhythm, tachycardic, 3/6 LUIS MIGUEL at RUSB CTAB no wcr Abd +BS soft NT ND Ext: LUE with AV, some ecchymosis overlying, right leg with small scab at IO site, + severe TTP over entire anterior tibia, no edema, no ecchymosis, perhaps some very mild erythema in prox tibia. 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 Treated with Calcium gluconate, D10/insulin, Bicarb, and emergent dialysis. With hyperkalemia again today requiring repeat HD. Fever/SIRS--> with severe right leg pain, question infection in leg--> start empiric abx with Cefepime and Vanco, draw BCxs from central line and peripheral , check PCT, Crp, ESR. -tib/fib xray negative, DOppler neg for RLE DVT but couldn't visualize veins more proximal due to femoral line--> will check MRI right leg -Consult Orthopedics-discussed case with Dr. Colin on phone today, no signs of compartment syndrome -Discussed with Traffic Agent--> he will evaluate for removal of femoral line and replacement given ongoing fever -continue Dilaudid prn, acetaminophen for fever -Appreciate Traffic Agent and Nephrology management -Consult Cardio to see about need for AICD for primary prevention given recurrent h/o severe hyperkalemia -awaiting recommendations Documented By: Roseanne Ross (Roseanne Ross MD)
[2017-05-15] MEDS: SERTRALINE HCL 50 MG TAB PO SCH (14:47)
[2017-05-15] MEDS: GABAPENTIN 100 MG CAP PO SCH (14:48)
[2017-05-15] MEDS: CARVEDILOL 25 MG TAB PO SCH ×2 (14:48→20:01)
[2017-05-15] MEDS: LORAZEPAM 2 MG/ML 1 ML VIAL IV PRN (15:34)
[2017-05-15] MEDS: HYDROmorphone INJ 0.5 MG/0.5 ML SYR IV PRN ×2 (16:05→20:06)
[2017-05-15 16:30] LABS: INR 1.1 (0.9-1.1); PTT PATIENT 29.7 SECONDS (21.0-31.0)
--- NOTE | 2017-05-15 16:52 | DIAGNOSTIC IMAGING REPORT ---
RIGHT LOWER EXTREMITY VENOUS DOPPLER HISTORY: Right leg excessive pain COMPARISON STUDY: None. FINDINGS: There is normal compressibility, flow, and augmentation within the visualized right lower extremity deep venous system. Of note, the common femoral vein and proximal superficial femoral vein were unable to be visualized due to the patient's overlying IV site. IMPRESSION: No DVT within the visualized right lower extremity Electronically signed by: Erickson Martines M.D. 05/15/2017 4:51 PM Dictated Date/Time: 05/15/2017 4:39 PM
[2017-05-15] MEDS ORDERED: VANCOMYCIN CONSULT ACTIVE PRN (17:15)
[2017-05-15] MEDS: ACETAMINOPHEN 325 MG TAB PO PRN (17:15)
--- NOTE | 2017-05-15 17:29 | Cardiology Consultation ---
Cardiology Consultation Date of Consultation: May 15, 2017. Requesting Physician: Sandra Riddle Reason for Consultation: WCT, bradycardia Pt evaluation today including: conversation w/ patient, physical exam, lab review, review of studies, review of inpatient medication list History of Present Illness Patient presented with hyperkalemia and significant arrhythmias, on interview with him today he has no recollection of the events other than that he felt very tired and could not think clearly. Today he feels better but is complaining of leg discomfort (I believe at the site of his intra-osseous intravenous), he does not have any chest discomfort. He is currently on dialysis at the time of my evaluation. Past Medical/Surgical History (1) Aortic dissection (2) Renal transplant, status post Family History Cancer Hypertension Social History Smoking Status: Never Smoker History of Alcohol Use: No Allergies Coded Allergies: Penicillins (Unverified Allergy, Severe, FACE SWELLS, 05/14/17) Amoxicillin (Verified Allergy, Unknown, ?, 05/14/17) Medications Current Inpatient Medications Medications (Trade) Dose Ordered Sig/Moises Route Start Time Stop Time Status Last Admin Dose Admin Lorazepam (Ativan Inj) 0.5 mg Q4H PRN IV 05/14/17 00:30 06/13/17 00:29 05/15/17 15:34 0.5 MG Atorvastatin Calcium (Lipitor Tab) 40 mg QPM PO 05/14/17 21:00 06/13/17 20:59 05/14/17 21:00 40 MG Carvedilol (Coreg Tab) 50 mg BID PO 05/14/17 09:00 06/13/17 08:59 05/15/17 14:48 50 MG Gabapentin (Neurontin Cap) 200 mg QAM PO 05/14/17 09:00 06/13/17 08:59 05/15/17 14:48 200 MG Gabapentin (Neurontin Cap) 300 mg HS PO 05/14/17 21:00 06/13/17 20:59 05/14/17 21:00 300 MG Levothyroxine Sodium (Synthroid Tab) 50 mcg DAILYBB PO 05/14/17 06:00 06/13/17 05:59 05/15/17 06:00 50 MCG Sertraline HCl (Zoloft Tab) 50 mg DAILY PO 05/14/17 09:00 4/18/18 08:59 05/15/17 14:47 50 MG Miscellaneous Information (Order Awaiting Action) 1 ea QS N/A 05/14/17 08:00 06/13/17 07:59 Sevelamer HCl (Renagel Tab) 1,600 mg TIDM PO 05/14/17 07:15 06/13/17 07:59 05/15/17 17:16 1,600 MG Heparin Sodium (Porcine) (Heparin Sq 5000 Unit/0.5ml) 5,000 unit Q8 SQ 05/14/17 09:00 06/13/17 08:59 05/15/17 14:50 5,000 UNIT Lidocaine (Lidoderm Patch 5%) 1 patch QAM TD 05/15/17 09:00 06/14/17 08:59 Miscellaneous (Remove Lidoderm Patch) 1 ea DAILY@21 N/A 05/14/17 21:00 06/13/17 20:59 05/14/17 20:23 1 EA Lisinopril (Zestril Tab) 40 mg QAM PO 05/15/17 09:00 06/14/17 08:59 05/15/17 14:47 40 MG Oxycodone HCl (Roxicodone Immediate Rel Tab) 5 mg Q4H PRN PO 05/14/17 16:30 05/28/17 16:29 05/15/17 13:39 5 MG Non-Formulary Medication (Non-Formulary Patient'S Own Med) 1 ea DAILY PRN PO 05/14/17 21:45 06/13/17 21:44 Hydromorphone HCl (Dilaudid Inj) 0.5 mg Q4H PRN IV 05/15/17 15:45 05/29/17 15:44 05/15/17 16:05 0.5 MG Acetaminophen (Tylenol Tab) 650 mg Q6H PRN PO 05/15/17 17:15 06/14/17 17:14 05/15/17 17:15 650 MG Cefepime HCl 2000 mg/Dextrose 112.5 ml @ 200 mls/hr Q8 IV 05/15/17 22:00 05/17/17 21:59 UNV Vancomycin HCl 1000 mg/Sodium Chloride 270 ml @ 125 mls/hr Q12 IV 05/15/17 21:00 05/17/17 20:59 UNV Miscellaneous Information (Consult) 1 ea UD PRN N/A 05/15/17 17:15 06/14/17 17:14 UNV Physical Exam Vital Signs Past 12 Hours Date Time Temp Pulse Resp B/P (MAP) Pulse Ox O2 Delivery O2 Flow Rate FiO2 05/15/17 16:44 153/98 (116) 05/15/17 15:01 38.1 133 22 146/116 (126) 96 Room Air 05/15/17 14:34 36.7 118 152/78 (102) 05/15/17 14:33 117 152/78 05/15/17 14:16 125 146/83 05/15/17 14:00 119 138/56 05/15/17 13:45 118 128/75 05/15/17 13:30 120 122/70 05/15/17 13:15 111 128/65 05/15/17 13:00 113 124/67 05/15/17 12:45 113 144/73 05/15/17 12:30 113 134/68 05/15/17 12:15 117 125/67 05/15/17 12:01 114 149/82 05/15/17 12:00 93 Room Air 05/15/17 11:45 115 128/82 05/15/17 11:30 108 103/45 05/15/17 11:15 109 94/52 05/15/17 11:00 108 113/56 05/15/17 10:45 106 109/60 05/15/17 10:34 102 145/85 05/15/17 10:30 37.5 96 146/86 (106) 05/15/17 08:00 36.8 100 16 122/81 (95) 93 Room Air 05/15/17 08:00 Room Air Data Laboratory Results: Last 24 Hours Test 05/15/17 05:39 05/15/17 16:06 05/15/17 16:54 05/15/17 17:17 White Blood Count 7.22 K/uL Red Blood Count 3.79 M/uL Hemoglobin 12.1 g/dL Hematocrit 37.9 % Mean Corpuscular Volume 100.0 fL Mean Corpuscular Hemoglobin 31.9 pg Mean Corpuscular Hemoglobin Concent 31.9 g/dl Platelet Count 128 K/uL Mean Platelet Volume 9.7 fL Neutrophils (%) (Auto) 60.2 % Lymphocytes (%) (Auto) 17.2 % Monocytes (%) (Auto) 15.4 % Eosinophils (%) (Auto) 6.5 % Basophils (%) (Auto) 0.6 % Neutrophils # (Auto) 4.35 K/uL Lymphocytes # (Auto) 1.24 K/uL Monocytes # (Auto) 1.11 K/uL Eosinophils # (Auto) 0.47 K/uL Basophils # (Auto) 0.04 K/uL RDW Standard Deviation 60.5 fL RDW Coefficient of Variation 16.6 % Immature Granulocyte % (Auto) 0.1 % Immature Granulocyte # (Auto) 0.01 K/uL Sodium Level 134 mmol/L Potassium Level 6.1 mmol/L Chloride Level 94 mmol/L Carbon Dioxide Level 28 mmol/L Anion Gap 11.0 mmol/L Blood Urea Nitrogen 47 mg/dl Creatinine 8.90 mg/dl Est Creatinine Clear Calc Drug Dose 11.8 ml/min Estimated GFR () 8.8 Estimated GFR (Non- 7.6 BUN/Creatinine Ratio 5.3 Random Glucose 96 mg/dl Calcium Level 9.4 mg/dl Phosphorus Level 8.8 mg/dl Magnesium Level 2.4 mg/dl Prothrombin Time 11.4 SECONDS Prothromb Time International Ratio 1.1 Activated Partial Thromboplast Time 29.7 SECONDS Partial Thromboplastin Ratio 1.1 Imaging: EKG: Telemetry reviewed: Review of records from EMS shows a very wide complex rhythm , and then external pacing. I cannot tell what the underlying rhythm is during pacing. He then has a wide complex tachycardia which I suspect is sinus tachycardia aberrantly conducted, this gradually improves with correction of his hyperkalemia. Assessment & Plan 1. Wide complex tachycardia: I suspect this is sinus tachycardia although I cannot be sure, hemodynamically he was stable and I am sure it was related to his hyperkalemia regardless. I would try to correct his hyperkalemia, I would avoid antiarrhythmic therapy as this could potentiate the arrhythmia under these conditions. 2. Hyperkalemia: The cause of this is under investigation, it is recurrent, however I do not think device therapy would help the situation substantially. Certainly I would avoid a defibrillator, if he requires pacing that might be an option if he has consistent bradycardia but I do not think at the moment that I would do that. Thank you for allowing me to participate in his care.
[2017-05-15 17:44] LABS: BASO % 0.4 %; BASO ABS # 0.03 K/uL (0-0.2); EOS % 6.5 %; EOS ABS # 0.56 K/uL (0-0.5); HEMATOCRIT 41.2 % (42-52); HEMOGLOBIN 13.4 g/dL (14.0-18.0); IG# 0.03 K/uL (0.00-0.02); LYMPH % 11.1 %; LYMPH ABS # 0.95 K/uL (1.2-3.4); MEAN CELL VOLUME 98.6 fL (80-100); MEAN CORPUSCULAR HEMOGLOBIN 32.1 pg (25-34); MEAN PLATELET VOLUME 9.2 fL (7.4-10.4); MONO % 13.6 %; MONO ABS # 1.16 K/uL (0.11-0.59); NEUT ABS # 5.82 K/uL (1.4-6.5); PLATELET COUNT 131 K/uL (130-400); RED CELL DISTRIBUTION WIDTH CV 16.5 % (11.5-14.5); RED CELL DISTRIBUTION WIDTH SD 59.2 fL (36.4-46.3); WHITE BLOOD COUNT 8.55 K/uL (4.8-10.8)
[2017-05-15] MEDS ORDERED: VANCOMYCIN IV 1,250 MG in SODIUM CHLORIDE 0.9% 250ML 250 ML IV ONE (17:45)
[2017-05-15 17:59] LABS: MEAN CORPUSCULAR HGB CONC 32.5 g/dl (32-36)
[2017-05-15] MEDS ORDERED: CEFEPIME IV 1,000 MG in SYRINGE 0 ML IV ONE (18:00)
[2017-05-15] MEDS: ATORVASTATIN 40 MG TAB PO SCH (20:00)
[2017-05-15] MEDS: GABAPENTIN 300 MG CAP PO SCH (20:00)
--- NOTE | 2017-05-15 20:50 | DIAGNOSTIC IMAGING REPORT ---
ORBIT RADIOGRAPHS 3 VIEWS HISTORY: pre-MRI screening. COMPARISON: None. FINDINGS: There are no radiopaque foreign bodies identified within the orbits. IMPRESSION: No radiopaque foreign bodies identified within the orbits. Electronically signed by: Erickson Martines M.D. 05/15/2017 8:48 PM Dictated Date/Time: 05/15/2017 8:48 PM
[2017-05-15] MEDS ORDERED: VANCOMYCIN IV 1,000 MG in SODIUM CHLORIDE 0.9% 250ML 250 ML IV SCH (21:00)
--- NOTE | 2017-05-15 21:14 | Progress Note ---
Post ICU Progress Note Date & Time May 15, 2017 at 21:14 Vital Signs Vital Signs Past 12 Hours Date Time Temp Pulse Resp B/P (MAP) Pulse Ox O2 Delivery O2 Flow Rate FiO2 05/15/17 20:08 37.2 109 18 127/73 (91) 97 Room Air 05/15/17 20:00 Room Air 05/15/17 16:44 153/98 (116) 05/15/17 16:00 Room Air 05/15/17 15:01 38.1 133 22 146/116 (126) 96 Room Air 05/15/17 14:34 36.7 118 152/78 (102) 05/15/17 14:33 117 152/78 05/15/17 14:16 125 146/83 05/15/17 14:00 119 138/56 05/15/17 13:45 118 128/75 05/15/17 13:30 120 122/70 05/15/17 13:15 111 128/65 05/15/17 13:00 113 124/67 05/15/17 12:45 113 144/73 05/15/17 12:30 113 134/68 05/15/17 12:15 117 125/67 05/15/17 12:01 114 149/82 05/15/17 12:00 93 Room Air 05/15/17 11:45 115 128/82 05/15/17 11:30 108 103/45 05/15/17 11:15 109 94/52 05/15/17 11:00 108 113/56 05/15/17 10:45 106 109/60 05/15/17 10:34 102 145/85 05/15/17 10:30 37.5 96 146/86 (106) Notes Mental Status: participated in evaluation Nausea / Vomiting: adequately controlled Pain: improving with treatment Airway Patency, RR, SpO2: stable & adequate BP & HR: stable & adequate Patient is an unfortunate 22-year-old male with significant past medical history of glomerulonephropathy as well as aortic dissection with repair who was admitted for acute hyperkalemia and wide complex tachyarrhythmia which responded to medical treatment and emergent hemodialysis. His electrolytes had improved and the patient had done very well. He underwent dialysis earlier today. The patient had been complaining of pain to the site of the IO to the lower extremity. He had reportedly developed a fever today as well. Blood cultures were obtained and his groin CVL was removed. A peripheral site was placed. Patient has been receiving Dilaudid with relief of symptoms of pain. MRI of the lower extremity pending. On evaluation, the patient is resting comfortably. He denies any pain at this time. He does admit that his RIGHT lower extremity does hurt, but reports that he feels better than earlier this afternoon. Consider outpatient follow up in 1 to 2 weeks with: Nephro, PCP Repeat imaging needed: Agree with imaging studies of the RLE. Follow up cultures: Agree with blood cultures with new fever and multiple sources for seeding infection. Reviewed progress notes, labs, and inpatient medication list Continue current management Additional recommendations: Agree with primary services evaluation and management to this point. Please feel free to reconsult as needed
--- NOTE | 2017-05-15 21:17 | Pharmacy Progress Note ---
Pharmacy Antibiotic Consult Date of Service: May 15, 2017. Pharmacy Dosing Scope Pharmacy is consulted to initiate vancomycin IV dosing therapy, order appropriate labs and adjust drug dose/frequency. Subjective The patient is a 22 year old male admitted on May 14, 2017 at 00:31. Objective Height (Feet): 5 Height (Inches): 7.00 Weight (Kilograms): 62.400 Lab Results (24hrs): Test 05/15/17 05:39 05/15/17 16:06 05/15/17 17:30 05/15/17 17:31 White Blood Count 7.22 K/uL (4.8-10.8) 8.55 K/uL (4.8-10.8) Red Blood Count 3.79 M/uL (4.7-6.1) 4.18 M/uL (4.7-6.1) Hemoglobin 12.1 g/dL (14.0-18.0) 13.4 g/dL (14.0-18.0) Hematocrit 37.9 % (42-52) 41.2 % (42-52) Mean Corpuscular Volume 100.0 fL (80-100) 98.6 fL (80-100) Mean Corpuscular Hemoglobin 31.9 pg (25-34) 32.1 pg (25-34) Mean Corpuscular Hemoglobin Concent 31.9 g/dl (32-36) 32.5 g/dl (32-36) Platelet Count 128 K/uL (130-400) 131 K/uL (130-400) Mean Platelet Volume 9.7 fL (7.4-10.4) 9.2 fL (7.4-10.4) Neutrophils (%) (Auto) 60.2 % 68.0 % Lymphocytes (%) (Auto) 17.2 % 11.1 % Monocytes (%) (Auto) 15.4 % 13.6 % Eosinophils (%) (Auto) 6.5 % 6.5 % Basophils (%) (Auto) 0.6 % 0.4 % Neutrophils # (Auto) 4.35 K/uL (1.4-6.5) 5.82 K/uL (1.4-6.5) Lymphocytes # (Auto) 1.24 K/uL (1.2-3.4) 0.95 K/uL (1.2-3.4) Monocytes # (Auto) 1.11 K/uL (0.11-0.59) 1.16 K/uL (0.11-0.59) Eosinophils # (Auto) 0.47 K/uL (0-0.5) 0.56 K/uL (0-0.5) Basophils # (Auto) 0.04 K/uL (0-0.2) 0.03 K/uL (0-0.2) RDW Standard Deviation 60.5 fL (36.4-46.3) 59.2 fL (36.4-46.3) RDW Coefficient of Variation 16.6 % (11.5-14.5) 16.5 % (11.5-14.5) Immature Granulocyte % (Auto) 0.1 % 0.4 % Immature Granulocyte # (Auto) 0.01 K/uL (0.00-0.02) 0.03 K/uL (0.00-0.02) Sodium Level 134 mmol/L (136-145) Potassium Level 6.1 mmol/L (3.5-5.1) Chloride Level 94 mmol/L (98-107) Carbon Dioxide Level 28 mmol/L (21-32) Anion Gap 11.0 mmol/L (3-11) Blood Urea Nitrogen 47 mg/dl (7-18) Creatinine 8.90 mg/dl (0.60-1.40) Est Creatinine Clear Calc Drug Dose 11.8 ml/min Estimated GFR () 8.8 Estimated GFR (Non- 7.6 BUN/Creatinine Ratio 5.3 (10-20) Random Glucose 96 mg/dl (70-99) Calcium Level 9.4 mg/dl (8.5-10.1) Phosphorus Level 8.8 mg/dl (2.5-4.9) Magnesium Level 2.4 mg/dl (1.8-2.4) Prothrombin Time 11.4 SECONDS (9.0-12.0) Prothromb Time International Ratio 1.1 (0.9-1.1) Activated Partial Thromboplast Time 29.7 SECONDS (21.0-31.0) Partial Thromboplastin Ratio 1.1 C-Reactive Protein 12.80 mg/dl (0-0.29) Procalcitonin 0.87 ng/ml (0-0.5) Erythrocyte Sedimentation Rate 43 mm/hr (0-14) Micro Results: Date/Time Source Procedure Growth Status 05/15/17 17:30 Blood Blood Culture Pending Received 05/15/17 17:10 Blood Blood Culture Pending Received 05/14/17 00:50 Nasal MRSA DNA Surveillance Screen - Final Specimen Negative for MRSA by DNA Probe Complete Assessment & Plan Assessment: 22yo with extensive medical history: ESRD on HD 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 HD this AM for hyperkalemia, unsure of next HD schedule Goal trough level estimate: between 15-20 mcg/mL. Random level in AM. Cefepime renally adjusted 1000 mg x 1 dose then 500 mg q24H Pharmacy will continue to follow and will adjust dose/frequency as necessary. Thank you
[2017-05-15] MEDS ORDERED: CEFEPIME IV 2,000 MG in DEXTROSE 5% 100ML 100 ML IV SCH (22:00)
--- NOTE | 2017-05-15 22:19 | DIAGNOSTIC IMAGING REPORT ---
RIGHT TIBIA/FIBULA MRI HISTORY: Right leg severe pain,fever,recent interosseous access TECHNIQUE: Multiplanar multisequence MRI of the right lower leg was performed without the use of intravenous contrast. COMPARISON STUDY: Right tibia/fibula radiograph 05/14/2017. FINDINGS: No fracture or dislocation within the right tibia or fibula. Normal marrow signal intensity seen within the fibula. There is mild patchy edema-like marrow signal seen throughout the majority of the tibia. This is most pronounced proximally. No cortical destruction identified. There is edema/fluid surrounding the tibia and within the fascial planes of the anterolateral and deep posterior compartments. There is also mild edema within the proximal flexor hallucis longus and anterior tibialis muscles. No loculated fluid collections identified at this time. There is also subcutaneous edema seen most pronounced within the anteromedial aspect of the lower leg. No hematoma identified. IMPRESSION: 1. No fractures identified within the right lower leg. 2. Edema/fluid seen primarily surrounding the tibia and extending into the deep fascial planes and a few of the proximal lower leg muscles as described above. There is also anteromedial subcutaneous edema. These findings are nonspecific fasciitis/myositis and could be due to an infectious or possibly a posttraumatic process. No loculated fluid collections at this time to suggest an abscess. 3. There is also mild nonspecific patchy edema-like marrow signal seen throughout the majority of the tibia. This can also be seen in the setting of an infectious or reactive process. A bone infarct could also have a similar appearance but is considered less likely. Electronically signed by: Erickson Martines M.D. 05/15/2017 10:18 PM Dictated Date/Time: 05/15/2017 10:08 PM
[2017-05-16] VITALS (51 sets, daily range): BP systolic 67–121; BP diastolic 39–72; PULSE 78–107; TEMP 36.5–36.8; O2SAT 96–98
[2017-05-16] MEDS ORDERED: SODIUM CHLORIDE 0.9% 500ML 500 ML IV SCH (00:30)
[2017-05-16] MEDS ORDERED: LIDODERM (LIDOCAINE) PATCH 5% TD ONE ×2 (03:40→03:45)
[2017-05-16 04:45] LABS: BASO % 0.8 %; BASO ABS # 0.06 K/uL (0-0.2); EOS % 7.3 %; EOS ABS # 0.55 K/uL (0-0.5); HEMATOCRIT 39.1 % (42-52); HEMOGLOBIN 12.8 g/dL (14.0-18.0); IG# 0.02 K/uL (0.00-0.02); LYMPH % 16.1 %; LYMPH ABS # 1.21 K/uL (1.2-3.4); MEAN CELL VOLUME 99.2 fL (80-100); MEAN CORPUSCULAR HEMOGLOBIN 32.5 pg (25-34); MEAN CORPUSCULAR HGB CONC 32.7 g/dl (32-36); MEAN PLATELET VOLUME 9.5 fL (7.4-10.4); MONO % 13.9 %; MONO ABS # 1.04 K/uL (0.11-0.59); NEUT % 61.6 %; NEUT ABS # 4.62 K/uL (1.4-6.5); PLATELET COUNT 141 K/uL (130-400); RED CELL DISTRIBUTION WIDTH CV 16.5 % (11.5-14.5); RED CELL DISTRIBUTION WIDTH SD 59.4 fL (36.4-46.3)
[2017-05-16] MEDS: HEPARIN SOD 5000 UNIT/0.5 ML CARP SQ SCH ×3 (05:03→21:37)
[2017-05-16] MEDS: LEVOTHYROXINE 50 MCG TAB PO SCH (05:03)
[2017-05-16 05:24] LABS: CALCIUM 9.2 mg/dl (8.5-10.1); CREATININE 6.04 mg/dl (0.60-1.40); PHOSPHORUS 7.7 mg/dl (2.5-4.9); POTASSIUM 5.1 mmol/L (3.5-5.1)
[2017-05-16] MEDS: MoRPHine SULFATE 4 MG/ML 1 ML CARP\\VIAL IV PRN ×3 (06:21→20:38)
[2017-05-16] MEDS: SEVELAMER HYDROCH 800 MG TAB PO SCH ×3 (07:54→16:45)
[2017-05-16] MEDS: SERTRALINE HCL 50 MG TAB PO SCH (07:54)
[2017-05-16] MEDS: GABAPENTIN 100 MG CAP PO SCH (07:54)
[2017-05-16] MEDS: OXYCODONE HCL IR 5 MG TAB (IMMEDIATE RELEASE) PO PRN ×3 (08:41→18:31)
[2017-05-16] MEDS: LIDODERM (LIDOCAINE) PATCH 5% TD SCH (08:41)
[2017-05-16] MEDS: CARVEDILOL 25 MG TAB PO SCH ×2 (08:42→21:37)
[2017-05-16] MEDS ORDERED: HEPARIN SOD (PORCINE) 1000 UNIT/ML 10 ML VIAL IV SCH ×2 (09:30)
--- NOTE | 2017-05-16 10:39 | Pain Management Consultation ---
Pain Management Consultation Date of Consultation May 16, 2017. Reason for Consultation Right leg pain History Patient had an interosseus placed into the right leg 2 days ago as he was having EKG changes and EMS was unable to obtain IV access. Patient has a significant history of glomerulonephritis in which he did receive a kidney transplant which was not effective. He is receiving dialysis regularly. Patient is currently ordered Oxycodone 5mg x 4 hrs, Morphine 4 mg IV x 6 hrs, and Gabapentin 200mg AM 300mg QHS. I was unable to speak with the patient as he is sleeping and despite several attempts, he is not waking up. He was given Morphine and Oxycodone this morning. Will plan to evaluate the patient tomorrow. Family History Cancer Hypertension Social / Work History Marital Status: single 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 Allergies Coded Allergies: Penicillins (Unverified Allergy, Severe, FACE SWELLS, 05/14/17) Amoxicillin (Verified Allergy, Unknown, ?, 05/14/17) Medications Current Inpatient Medications Medications (Trade) Dose Ordered Sig/Moises Route Start Time Stop Time Status Last Admin Dose Admin Lorazepam (Ativan Inj) 0.5 mg Q4H PRN IV 05/14/17 00:30 06/13/17 00:29 05/15/17 15:34 0.5 MG Atorvastatin Calcium (Lipitor Tab) 40 mg QPM PO 05/14/17 21:00 06/13/17 20:59 05/15/17 20:00 40 MG Carvedilol (Coreg Tab) 50 mg BID PO 05/14/17 09:00 06/13/17 08:59 Future Hold 05/15/17 20:01 50 MG Gabapentin (Neurontin Cap) 200 mg QAM PO 05/14/17 09:00 06/13/17 08:59 05/16/17 07:54 200 MG Gabapentin (Neurontin Cap) 300 mg HS PO 05/14/17 21:00 06/13/17 20:59 05/15/17 20:00 300 MG Levothyroxine Sodium (Synthroid Tab) 50 mcg DAILYBB PO 05/14/17 06:00 06/13/17 05:59 05/16/17 05:03 50 MCG Sertraline HCl (Zoloft Tab) 50 mg DAILY PO 05/14/17 09:00 06/13/17 08:59 05/16/17 07:54 50 MG Miscellaneous Information (Order Awaiting Action) 1 ea QS N/A 05/14/17 08:00 06/13/17 07:59 Sevelamer HCl (Renagel Tab) 1,600 mg TIDM PO 05/14/17 07:15 06/13/17 07:59 05/16/17 07:54 1,600 MG Heparin Sodium (Porcine) (Heparin Sq 5000 Unit/0.5ml) 5,000 unit Q8 SQ 05/14/17 09:00 06/13/17 08:59 05/15/17 22:03 5,000 UNIT Lidocaine (Lidoderm Patch 5%) 1 patch QAM TD 05/15/17 09:00 06/14/17 08:59 05/16/17 08:41 1 PATCH Miscellaneous (Remove Lidoderm Patch) 1 ea DAILY@21 N/A 05/14/17 21:00 06/13/17 20:59 05/14/17 20:23 1 EA Lisinopril (Zestril Tab) 40 mg QAM PO 05/15/17 09:00 06/14/17 08:59 Future Hold 05/15/17 14:47 40 MG Oxycodone HCl (Roxicodone Immediate Rel Tab) 5 mg Q4H PRN PO 05/14/17 16:30 05/28/17 16:29 05/16/17 08:41 5 MG Non-Formulary Medication (Non-Formulary Patient'S Own Med) 1 ea DAILY PRN PO 05/14/17 21:45 06/13/17 21:44 05/15/17 21:59 1 EA Acetaminophen (Tylenol Tab) 650 mg Q6H PRN PO 05/15/17 17:15 06/14/17 17:14 05/15/17 17:15 650 MG Miscellaneous Information (Consult) 1 ea UD PRN N/A 05/15/17 17:15 06/14/17 17:14 Cefepime HCl 500 mg/Syringe 5.5 ml @ 5.5 mls/min Q24H IV 05/16/17 18:00 05/18/17 17:59 Morphine Sulfate (MoRPHine SULFATE INJ) 4 mg Q6H PRN IV 05/16/17 03:00 05/30/17 02:59 05/16/17 06:21 4 MG Miscellaneous (Remove Lidoderm Patch) 1 ea TODAY@1600 N/A 05/16/17 16:00 05/16/17 16:01 Carvedilol (Coreg Tab) 25 mg BID PO 05/16/17 09:00 06/15/17 08:59 05/16/17 08:42 25 MG Heparin Sodium (Porcine) (Heparin Iv Bolus) 500 unit Q1H IV 05/16/17 09:30 05/16/17 10:31 Physical Exam Height & Weight: Height 5 feet, 7.00 inches. Weight 61.700 (Kilograms) 136 (Pounds) Last Vital Signs Documentation Date Time Temp Pulse Resp B/P (MAP) Pulse Ox O2 Delivery O2 Flow Rate FiO2 05/16/17 08:42 94 106/59 (75) 05/16/17 08:00 Room Air 05/16/17 07:21 36.5 16 96 05/14/17 15:30 Laboratory Laboratory Results (Last CBC): 05/16/17 04:25 Red Blood Count 3.94 L, Mean Corpuscular Volume 99.2, Mean Corpuscular Hemoglobin 32.5, Mean Corpuscular Hemoglobin Concent 32.7, Mean Platelet Volume 9.5, Neutrophils (%) (Auto) 61.6, Lymphocytes (%) (Auto) 16.1, Monocytes (%) ( Auto) 13.9, Eosinophils (%) (Auto) 7.3, Basophils (%) (Auto) 0.8, Neutrophils # (Auto) 4.62, Lymphocytes # (Auto) 1.21, Monocytes # (Auto) 1.04 H, Eosinophils # (Auto) 0.55 H, Basophils # (Auto) 0.06 Assessment 1. Right leg pain status post interosseus access 2. Acute on chronic kidney failure 3. Glomerulonephritis Recommendations 1. Patient is sleeping and resting comfortably currently after receiving Morphine and Oxycodone. Will not make any changes at this time and will re- evaluate the patient tomorrow.
--- NOTE | 2017-05-16 11:00 | Nephrology Progress Note ---
Nephrology Progress Note Date of Service May 16, 2017. Chief Complaint ESRD requiring HD Subjective Mr. Clay was seen & examined in the ICU this morning. He complains of fatigue and does not offer any new medical concerns. Review of Systems Constitutional: No fever Cardiovascular: No chest pain Respiratory: No dyspnea at rest Abdomen: No pain, No nausea, No vomiting Extremities: No leg edema A complete review of systems was performed. Pertinent positives are noted above. All other systems are negative. Vital Signs Last 8 Hrs Date Time Temp Pulse Resp B/P (MAP) Pulse Ox O2 Delivery O2 Flow Rate FiO2 05/16/17 08:42 94 106/59 (75) 05/16/17 08:00 Room Air 05/16/17 07:21 36.5 96 16 91/59 (70) 96 05/16/17 06:00 90 14 94/59 (71) 05/16/17 04:00 85 12 90/52 (65) 05/16/17 04:00 96 Room Air 05/16/17 03:47 36.7 86 16 78/54 (62) 96 Room Air 05/16/17 03:16 81 18 75/45 (55) 05/16/17 03:01 81 17 75/46 (56) Last Recorded Weight Weight (Kilograms): 61.700 Physical Exam General Appearance: no apparent distress Head: normocephalic, atraumatic Eyes: PERRL, EOMI Neck: no adenopathy Respiratory/Chest: lungs clear, no respiratory distress Cardiovascular: regular rate, rhythm Abdomen/GI: normal bowel sounds, non tender, soft Extremities/Musculoskelatal: no calf tenderness, no pedal edema, + pertinent finding (AVF + bruit) Neurologic/Psych: alert, oriented x 3 Family History Cancer Hypertension Negative for CKD/ESRD Social History Smoking Status: Never smoker Drug Use: none Marital Status: single 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 Lives with mother Laboratory Results Past 24 Hours 05/15/17 17:31 Red Blood Count 4.18, Mean Corpuscular Volume 98.6, Mean Corpuscular Hemoglobin 32.1, Mean Corpuscular Hemoglobin Concent 32.5, Mean Platelet Volume 9.2, Neutrophils (%) (Auto) 68.0, Lymphocytes (%) (Auto) 11.1, Monocytes (%) (Auto) 13.6, Eosinophils (%) (Auto) 6.5, Basophils (%) (Auto) 0.4, Neutrophils # (Auto ) 5.82, Lymphocytes # (Auto) 0.95, Monocytes # (Auto) 1.16, Eosinophils # (Auto ) 0.56, Basophils # (Auto) 0.03 05/16/17 04:25 Red Blood Count 3.94, Mean Corpuscular Volume 99.2, Mean Corpuscular Hemoglobin 32.5, Mean Corpuscular Hemoglobin Concent 32.7, Mean Platelet Volume 9.5, Neutrophils (%) (Auto) 61.6, Lymphocytes (%) (Auto) 16.1, Monocytes (%) (Auto) 13.9, Eosinophils (%) (Auto) 7.3, Basophils (%) (Auto) 0.8, Neutrophils # (Auto ) 4.62, Lymphocytes # (Auto) 1.21, Monocytes # (Auto) 1.04, Eosinophils # (Auto ) 0.55, Basophils # (Auto) 0.06 05/16/17 04:25 Test 05/15/17 16:06 05/15/17 17:30 05/15/17 17:31 05/16/17 00:25 Prothrombin Time 11.4 SECONDS (9.0-12.0) Prothromb Time International Ratio 1.1 (0.9-1.1) Activated Partial Thromboplast Time 29.7 SECONDS (21.0-31.0) Partial Thromboplastin Ratio 1.1 C-Reactive Protein 12.80 mg/dl (0-0.29) Procalcitonin 0.87 ng/ml (0-0.5) White Blood Count 8.55 K/uL (4.8-10.8) Red Blood Count 4.18 M/uL (4.7-6.1) Hemoglobin 13.4 g/dL (14.0-18.0) Hematocrit 41.2 % (42-52) Mean Corpuscular Volume 98.6 fL (80-100) Mean Corpuscular Hemoglobin 32.1 pg (25-34) Mean Corpuscular Hemoglobin Concent 32.5 g/dl (32-36) Platelet Count 131 K/uL (130-400) Mean Platelet Volume 9.2 fL (7.4-10.4) Neutrophils (%) (Auto) 68.0 % Lymphocytes (%) (Auto) 11.1 % Monocytes (%) (Auto) 13.6 % Eosinophils (%) (Auto) 6.5 % Basophils (%) (Auto) 0.4 % Neutrophils # (Auto) 5.82 K/uL (1.4-6.5) Lymphocytes # (Auto) 0.95 K/uL (1.2-3.4) Monocytes # (Auto) 1.16 K/uL (0.11-0.59) Eosinophils # (Auto) 0.56 K/uL (0-0.5) Basophils # (Auto) 0.03 K/uL (0-0.2) RDW Standard Deviation 59.2 fL (36.4-46.3) RDW Coefficient of Variation 16.5 % (11.5-14.5) Immature Granulocyte % (Auto) 0.4 % Immature Granulocyte # (Auto) 0.03 K/uL (0.00-0.02) Erythrocyte Sedimentation Rate 43 mm/hr (0-14) Bedside Glucose 110 mg/dl (70-99) Test 05/16/17 04:25 White Blood Count 7.50 K/uL (4.8-10.8) Red Blood Count 3.94 M/uL (4.7-6.1) Hemoglobin 12.8 g/dL (14.0-18.0) Hematocrit 39.1 % (42-52) Mean Corpuscular Volume 99.2 fL (80-100) Mean Corpuscular Hemoglobin 32.5 pg (25-34) Mean Corpuscular Hemoglobin Concent 32.7 g/dl (32-36) Platelet Count 141 K/uL (130-400) Mean Platelet Volume 9.5 fL (7.4-10.4) Neutrophils (%) (Auto) 61.6 % Lymphocytes (%) (Auto) 16.1 % Monocytes (%) (Auto) 13.9 % Eosinophils (%) (Auto) 7.3 % Basophils (%) (Auto) 0.8 % Neutrophils # (Auto) 4.62 K/uL (1.4-6.5) Lymphocytes # (Auto) 1.21 K/uL (1.2-3.4) Monocytes # (Auto) 1.04 K/uL (0.11-0.59) Eosinophils # (Auto) 0.55 K/uL (0-0.5) Basophils # (Auto) 0.06 K/uL (0-0.2) RDW Standard Deviation 59.4 fL (36.4-46.3) RDW Coefficient of Variation 16.5 % (11.5-14.5) Immature Granulocyte % (Auto) 0.3 % Immature Granulocyte # (Auto) 0.02 K/uL (0.00-0.02) Anion Gap 7.0 mmol/L (3-11) Est Creatinine Clear Calc Drug Dose 17.1 ml/min Estimated GFR () 14.1 Estimated GFR (Non- 12.2 BUN/Creatinine Ratio 5.0 (10-20) Calcium Level 9.2 mg/dl (8.5-10.1) Phosphorus Level 7.7 mg/dl (2.5-4.9) Magnesium Level 2.3 mg/dl (1.8-2.4) Chemistry Specimen Hemolysis Random Vancomycin Level 38.2 mcg/ml Allergies Coded Allergies: Penicillins (Unverified Allergy, Severe, FACE SWELLS, 05/14/17) Amoxicillin (Verified Allergy, Unknown, ?, 05/14/17) Medications Current Inpatient Medications Medications (Trade) Dose Ordered Sig/Moises Route Start Time Stop Time Status Last Admin Dose Admin Lorazepam (Ativan Inj) 0.5 mg Q4H PRN IV 05/14/17 00:30 06/13/17 00:29 05/15/17 15:34 0.5 MG Atorvastatin Calcium (Lipitor Tab) 40 mg QPM PO 05/14/17 21:00 06/13/17 20:59 05/15/17 20:00 40 MG Carvedilol (Coreg Tab) 50 mg BID PO 05/14/17 09:00 06/13/17 08:59 Future Hold 05/15/17 20:01 50 MG Gabapentin (Neurontin Cap) 200 mg QAM PO 05/14/17 09:00 06/13/17 08:59 05/16/17 07:54 200 MG Gabapentin (Neurontin Cap) 300 mg HS PO 05/14/17 21:00 06/13/17 20:59 05/15/17 20:00 300 MG Levothyroxine Sodium (Synthroid Tab) 50 mcg DAILYBB PO 05/14/17 06:00 06/13/17 05:59 05/16/17 05:03 50 MCG Sertraline HCl (Zoloft Tab) 50 mg DAILY PO 05/14/17 09:00 06/13/17 08:59 05/16/17 07:54 50 MG Miscellaneous Information (Order Awaiting Action) 1 ea QS N/A 05/14/17 08:00 06/13/17 07:59 Sevelamer HCl (Renagel Tab) 1,600 mg TIDM PO 05/14/17 07:15 06/13/17 07:59 05/16/17 07:54 1,600 MG Heparin Sodium (Porcine) (Heparin Sq 5000 Unit/0.5ml) 5,000 unit Q8 SQ 05/14/17 09:00 06/13/17 08:59 05/15/17 22:03 5,000 UNIT Lidocaine (Lidoderm Patch 5%) 1 patch QAM TD 05/15/17 09:00 06/14/17 08:59 05/16/17 08:41 1 PATCH Miscellaneous (Remove Lidoderm Patch) 1 ea DAILY@21 N/A 05/14/17 21:00 06/13/17 20:59 05/14/17 20:23 1 EA Lisinopril (Zestril Tab) 40 mg QAM PO 05/15/17 09:00 06/14/17 08:59 Future Hold 05/15/17 14:47 40 MG Oxycodone HCl (Roxicodone Immediate Rel Tab) 5 mg Q4H PRN PO 05/14/17 16:30 05/28/17 16:29 05/16/17 08:41 5 MG Non-Formulary Medication (Non-Formulary Patient'S Own Med) 1 ea DAILY PRN PO 05/14/17 21:45 06/13/17 21:44 05/15/17 21:59 1 EA Acetaminophen (Tylenol Tab) 650 mg Q6H PRN PO 05/15/17 17:15 06/14/17 17:14 05/15/17 17:15 650 MG Miscellaneous Information (Consult) 1 ea UD PRN N/A 05/15/17 17:15 06/14/17 17:14 Cefepime HCl 500 mg/Syringe 5.5 ml @ 5.5 mls/min Q24H IV 3/21/18 18:00 05/18/17 17:59 Morphine Sulfate (MoRPHine SULFATE INJ) 4 mg Q6H PRN IV 05/16/17 03:00 05/30/17 02:59 05/16/17 06:21 4 MG Miscellaneous (Remove Lidoderm Patch) 1 ea TODAY@1600 N/A 05/16/17 16:00 05/16/17 16:01 Carvedilol (Coreg Tab) 25 mg BID PO 05/16/17 09:00 06/15/17 08:59 05/16/17 08:42 25 MG Impression (1) Hyperkalemia (2) ESRD on hemodialysis AVF with small area of surrounding ecchymosis suggestive of recent infiltration. 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 Hyperkalemia may be related to recirculation during HD. Recommendations -- Potassium rapidly rises in between HD treatments. Patient is on low K diet. Review of HD treatment sheets reveals venous pressure 210 - 240 mmHG at Qb 400 cc/min. Reviewed with vascular surgery today. Patient scheduled for fistulogram in am -- HD today for correction of serum potassium prior to fistulogram. Orders entered into EMR and HD RN notified -- Cardiology recommendations reviewed this am: monitor for now. No acute indication for AICD -- Will recheck PRP in am
--- NOTE | 2017-05-16 11:22 | Pharmacy Progress Note ---
Pharmacy Abx Dose Short Note Date of Service May 16, 2017. Assessment & Plan Assessment * 22 year old male receiving empiric abx therapy (vancomycin IV + cefepime IV) for fever w/ severe right leg pain, CVL leg removed * Day # 2 of antimicrobial therapy * Thus far, blood cx's are negative * Tmax 38.6 over last 24 hours, no leukocytosis noted, BPs had been low much of the day yesterday but are improved today Plan Vancomycin * Received vancomycin 1250mg (20mg/kg) IV x 1 yesterday at 1852, this was after receiving HD earlier in the day * Random level drawn this AM = 38.2 * Patient has been ordered another 4 hr HD session today * No repeat vancomycin dosing is required today, rather will check random level w/ AM labs tomorrow to guide redosing if therapy continues beyond 48hrs Pharmacy will continue to follow and will adjust dose/frequency as necessary. Thank you.
--- NOTE | 2017-05-16 12:54 | Progress Note ---
Progress Note Date of Service May 16, 2017. Progress Note Pt seen by Dr Sierra today, planning on LUE fistulagram/thrombectomy in OR on SUNDAY. Pt aware.
--- NOTE | 2017-05-16 14:56 | Hospitalist Progress Note ---
Hospitalist Progress Note Date of Service May 16, 2017. (Sandra Riddle ., RAMIRO) Subjective Pt evaluation today including: conversation w/ patient, physical exam, chart review, lab review, review of inpatient medication list Voiding: no voiding problems Mr. Clay is drowsy but arousable to verbal stimuli. He continues to have pain over his right aranda. ROS Constitutional: no chills, aches, sweats or fever Respiratory: no sob,cough, sputum, or wheezing Cardiac: no chest pain, palpitations, edema, orthopnea or lightheadedness GI: no abdominal pain, nausea, vomiting, diarrhea or constipation : no dysuria or hesitancy Extremities: see HPI Skin: no rash All other systems reviewed and negative (Sandra Riddle CRNP) Medications Medications Administered Medications (Trade) Dose Ordered Sig/Moises Route Start Time Stop Time Status Last Admin Dose Admin Lidocaine HCl (Lidocaine 2% 20MG/Ml Syringe) 100 mg STK-MED ONCE IV 05/13/17 23:22 05/13/17 23:23 DC 05/13/17 23:22 100 MG Albuterol Sulfate (Ventolin 0.5% 2.5MG/0.5ML Neb) 7.5 mg STK-MED ONCE INH 05/13/17 23:28 05/13/17 23:29 DC 05/13/17 23:47 7.5 MG Albuterol Sulfate (Ventolin 0.083% 2.5MG/3ML Neb) 2.5 mg STK-MED ONCE INH 05/13/17 23:28 05/13/17 23:29 DC 05/13/17 23:47 2.5 MG Insulin Human Regular (novoLIN-R U-100 PER UNIT) 10 units NOW STAT IV 05/13/17 23:38 05/13/17 23:42 DC 05/13/17 23:45 10 UNITS Dextrose (Dextrose 50% 50ML Syringe) 50 ml NOW STAT IV 05/13/17 23:38 05/13/17 23:42 DC 05/13/17 23:45 50 ML Fentanyl Citrate (Fentanyl Inj) 50 mcg NOW STAT IV 05/14/17 00:25 05/14/17 00:27 DC 05/14/17 00:33 50 MCG Lorazepam (Ativan Inj) 0.5 mg Q4H PRN IV 05/14/17 00:30 06/13/17 00:29 05/15/17 15:34 0.5 MG Heparin Sodium (Porcine) (No Heparin In Dialysis) 1 ea TODAY@0100 N/A 05/14/17 01:00 05/14/17 23:59 DC 05/14/17 12:09 1 EA Diphenhydramine HCl (Benadryl Inj) 50 mg STK-MED ONCE .ROUTE 05/14/17 01:17 05/14/17 01:18 DC 05/14/17 03:02 50 MG Atorvastatin Calcium (Lipitor Tab) 40 mg QPM PO 05/14/17 21:00 06/13/17 20:59 05/15/17 20:00 40 MG Carvedilol (Coreg Tab) 50 mg BID PO 05/14/17 09:00 06/13/17 08:59 Future Hold 05/15/17 20:01 50 MG Gabapentin (Neurontin Cap) 200 mg QAM PO 05/14/17 09:00 06/13/17 08:59 05/16/17 07:54 200 MG Gabapentin (Neurontin Cap) 300 mg HS PO 05/14/17 21:00 06/13/17 20:59 05/15/17 20:00 300 MG Levothyroxine Sodium (Synthroid Tab) 50 mcg DAILYBB PO 05/14/17 06:00 06/13/17 05:59 05/16/17 05:03 50 MCG Sertraline HCl (Zoloft Tab) 50 mg DAILY PO 05/14/17 09:00 06/13/17 08:59 05/16/17 07:54 50 MG Sevelamer HCl (Renagel Tab) 1,600 mg TIDM PO 05/14/17 07:15 06/13/17 07:59 05/16/17 07:54 1,600 MG Heparin Sodium (Porcine) (Heparin Sq 5000 Unit/0.5ml) 5,000 unit Q8 SQ 05/14/17 09:00 06/13/17 08:59 05/16/17 14:25 5,000 UNIT Hydromorphone HCl (Dilaudid Inj) 0.5 mg STK-MED ONCE .ROUTE 05/14/17 06:51 05/14/17 06:52 DC 05/14/17 06:54 0.25 MG Perflutren Lipid Microsphere (Definity) 2 ml ONE ONCE IV 05/14/17 10:24 05/14/17 10:25 DC 05/14/17 10:25 2 ML Lidocaine (Lidoderm Patch 5%) 1 patch QAM TD 05/15/17 09:00 06/14/17 08:59 05/16/17 08:41 1 PATCH Miscellaneous (Remove Lidoderm Patch) 1 ea DAILY@21 N/A 05/14/17 21:00 06/13/17 20:59 05/14/17 20:23 1 EA Lidocaine (Lidoderm Patch 5%) 1 patch ONE ONCE TD 05/14/17 12:00 05/14/17 12:01 DC 05/14/17 11:57 1 PATCH Hydromorphone HCl (Dilaudid Inj) 0.5 mg ONE ONCE IV 05/14/17 13:36 05/14/17 13:37 DC 05/14/17 13:42 0.5 MG Heparin Sodium (Porcine) (Heparin Iv Bolus) 2,000 unit TODAY IV 05/15/17 08:00 05/15/17 08:01 DC 05/15/17 10:30 2,000 UNIT Heparin Sodium (Porcine) (Heparin Iv Bolus) 500 unit Q1H IV 05/15/17 09:00 05/15/17 10:01 DC 05/15/17 12:30 500 UNIT Lisinopril (Zestril Tab) 40 mg QAM PO 05/15/17 09:00 06/14/17 08:59 Future Hold 05/15/17 14:47 40 MG Oxycodone HCl (Roxicodone Immediate Rel Tab) 5 mg Q4H PRN PO 05/14/17 16:30 05/28/17 16:29 05/16/17 14:27 5 MG Non-Formulary Medication (Non-Formulary Patient'S Own Med) 1 ea DAILY PRN PO 05/14/17 21:45 06/13/17 21:44 05/15/17 21:59 1 EA Morphine Sulfate (MoRPHine SULFATE INJ) 4 mg Q4H PRN IV 05/15/17 01:15 05/15/17 15:52 DC 05/15/17 11:41 4 MG Morphine Sulfate (MoRPHine SULFATE INJ) 4 mg STK-MED ONCE .ROUTE 05/15/17 01:11 05/15/17 01:12 DC 05/15/17 01:14 4 MG Hydromorphone HCl (Dilaudid Inj) 0.5 mg STK-MED ONCE .ROUTE 05/15/17 08:57 05/15/17 08:58 DC 05/15/17 08:57 0.5 MG Diphenhydramine HCl (Benadryl Inj) 25 mg NOW STAT IV 05/15/17 09:47 05/15/17 10:16 DC 05/15/17 10:45 25 MG Hydromorphone HCl (Dilaudid Inj) 0.5 mg Q4H PRN IV 05/15/17 15:45 05/16/17 02:58 DC 05/15/17 20:06 0.5 MG Acetaminophen (Tylenol Tab) 650 mg Q6H PRN PO 05/15/17 17:15 06/14/17 17:14 05/15/17 17:15 650 MG Vancomycin HCl 1250 mg/Sodium Chloride 275 ml @ 125 mls/hr NOW ONCE IV 05/15/17 17:45 05/15/17 19:56 DC 05/15/17 18:52 125 MLS/HR Cefepime HCl 1000 mg/Syringe 11 ml @ 5.5 mls/min TODAY@1800 ONCE IV 05/15/17 18:00 05/15/17 18:01 DC 05/15/17 18:52 5.5 MLS/MIN Sodium Chloride 500 ml @ 125 mls/hr Q4H IV 05/16/17 00:30 05/16/17 04:29 DC 05/16/17 00:55 125 MLS/HR Morphine Sulfate (MoRPHine SULFATE INJ) 4 mg Q6H PRN IV 05/16/17 03:00 05/30/17 02:59 05/16/17 06:21 4 MG Lidocaine (Lidoderm Patch 5%) 1 patch NOW ONCE TD 05/16/17 03:45 05/16/17 03:50 DC 05/16/17 05:03 1 PATCH Carvedilol (Coreg Tab) 25 mg BID PO 05/16/17 09:00 06/15/17 08:59 05/16/17 08:42 25 MG (Sandra Riddle CRNP) Objective Vital Signs Date Time Temp Pulse Resp B/P (MAP) Pulse Ox O2 Delivery O2 Flow Rate FiO2 05/16/17 12:00 Room Air 05/16/17 11:36 36.5 94 18 107/60 (76) 96 05/16/17 08:42 94 106/59 (75) 05/16/17 08:00 Room Air 05/16/17 07:21 36.5 96 16 91/59 (70) 96 05/16/17 06:00 90 14 94/59 (71) 05/16/17 04:00 85 12 90/52 (65) 05/16/17 04:00 96 Room Air 05/16/17 03:47 36.7 86 16 78/54 (62) 96 Room Air 05/16/17 03:16 81 18 75/45 (55) 05/16/17 03:01 81 17 75/46 (56) 05/16/17 02:46 79 20 76/43 (54) 05/16/17 02:38 79 16 77/41 (53) 05/16/17 02:31 78 18 72/42 (52) 05/16/17 02:19 79 18 70/41 (51) 05/16/17 02:16 79 19 78/44 (55) 05/16/17 02:15 80 15 05/16/17 02:01 80 14 85/52 (63) 05/16/17 02:00 84 12 05/16/17 01:52 81 10 85/50 (62) 05/16/17 01:45 82 17 05/16/17 01:31 82 14 84/58 (67) 05/16/17 01:31 82 14 84/58 (67) 05/16/17 01:30 83 12 05/16/17 01:30 83 12 05/16/17 01:25 85 13 67/53 (58) 05/16/17 01:25 85 13 67/53 (58) 05/16/17 01:16 81 16 72/43 (53) 05/16/17 01:16 81 16 72/43 (53) 05/16/17 01:15 83 12 05/16/17 01:15 83 12 05/16/17 01:01 83 10 78/44 (55) 05/16/17 01:01 83 10 78/44 (55) 05/16/17 01:00 83 9 05/16/17 01:00 83 9 05/16/17 00:53 81 12 74/41 (52) 05/16/17 00:53 81 12 74/41 (52) 05/16/17 00:45 83 16 05/16/17 00:45 83 16 05/16/17 00:30 81 15 05/16/17 00:30 81 15 05/16/17 00:26 82 18 79/41 (54) 05/16/17 00:26 82 18 79/41 (54) 05/16/17 00:15 84 9 05/16/17 00:15 84 9 05/16/17 00:03 86 14 82/48 (59) 05/16/17 00:03 86 14 82/48 (59) 05/16/17 00:02 84 12 80/39 (53) 97 05/16/17 00:02 84 12 80/39 (53) 97 05/16/17 00:00 84 16 96 05/16/17 00:00 84 16 96 05/15/17 23:59 97 Room Air 05/15/17 23:20 36.5 86 17 82/48 (59) 96 05/15/17 20:08 37.2 109 18 127/73 (91) 97 Room Air 05/15/17 20:00 Room Air 05/15/17 16:44 153/98 (116) 05/15/17 16:00 38.6 05/15/17 16:00 Room Air 05/15/17 15:01 38.1 133 22 146/116 (126) 96 Room Air (Sandra Riddle CRNP) Physical Exam Notes: General: no distress Eyes: normal inspection, PERLL Respiratory: chest non tender, clear to auscultation, normal breath sounds, no respiratory distress, no accessory muscle use Cardiac: regular rate and rhythm, no rub or gallop, no murmur, no edema, no jvd GI/: active bowel sounds, no abd pain or tenderness, soft, non distended Extremities: normal range of motion, normal strength, non tender Neuro/Psych: drowsy and oriented x 3, normal mood and affect Skin: normal color, dry (Sandra Riddle CRNP) Laboratory Results Last 24 Hours Test 05/15/17 16:06 3/20/18 17:30 05/15/17 17:31 05/16/17 00:25 Prothrombin Time 11.4 SECONDS Prothromb Time International Ratio 1.1 Activated Partial Thromboplast Time 29.7 SECONDS Partial Thromboplastin Ratio 1.1 C-Reactive Protein 12.80 mg/dl Procalcitonin 0.87 ng/ml White Blood Count 8.55 K/uL Red Blood Count 4.18 M/uL Hemoglobin 13.4 g/dL Hematocrit 41.2 % Mean Corpuscular Volume 98.6 fL Mean Corpuscular Hemoglobin 32.1 pg Mean Corpuscular Hemoglobin Concent 32.5 g/dl Platelet Count 131 K/uL Mean Platelet Volume 9.2 fL Neutrophils (%) (Auto) 68.0 % Lymphocytes (%) (Auto) 11.1 % Monocytes (%) (Auto) 13.6 % Eosinophils (%) (Auto) 6.5 % Basophils (%) (Auto) 0.4 % Neutrophils # (Auto) 5.82 K/uL Lymphocytes # (Auto) 0.95 K/uL Monocytes # (Auto) 1.16 K/uL Eosinophils # (Auto) 0.56 K/uL Basophils # (Auto) 0.03 K/uL RDW Standard Deviation 59.2 fL RDW Coefficient of Variation 16.5 % Immature Granulocyte % (Auto) 0.4 % Immature Granulocyte # (Auto) 0.03 K/uL Erythrocyte Sedimentation Rate 43 mm/hr Bedside Glucose 110 mg/dl Test 05/16/17 04:25 White Blood Count 7.50 K/uL Red Blood Count 3.94 M/uL Hemoglobin 12.8 g/dL Hematocrit 39.1 % Mean Corpuscular Volume 99.2 fL Mean Corpuscular Hemoglobin 32.5 pg Mean Corpuscular Hemoglobin Concent 32.7 g/dl Platelet Count 141 K/uL Mean Platelet Volume 9.5 fL Neutrophils (%) (Auto) 61.6 % Lymphocytes (%) (Auto) 16.1 % Monocytes (%) (Auto) 13.9 % Eosinophils (%) (Auto) 7.3 % Basophils (%) (Auto) 0.8 % Neutrophils # (Auto) 4.62 K/uL Lymphocytes # (Auto) 1.21 K/uL Monocytes # (Auto) 1.04 K/uL Eosinophils # (Auto) 0.55 K/uL Basophils # (Auto) 0.06 K/uL RDW Standard Deviation 59.4 fL RDW Coefficient of Variation 16.5 % Immature Granulocyte % (Auto) 0.3 % Immature Granulocyte # (Auto) 0.02 K/uL Sodium Level 130 mmol/L Potassium Level 5.1 mmol/L Chloride Level 95 mmol/L Carbon Dioxide Level 28 mmol/L Anion Gap 7.0 mmol/L Blood Urea Nitrogen 30 mg/dl Creatinine 6.04 mg/dl Est Creatinine Clear Calc Drug Dose 17.1 ml/min Estimated GFR () 14.1 Estimated GFR (Non- 12.2 BUN/Creatinine Ratio 5.0 Random Glucose 93 mg/dl Calcium Level 9.2 mg/dl Phosphorus Level 7.7 mg/dl Magnesium Level 2.3 mg/dl Chemistry Specimen Hemolysis Random Vancomycin Level 38.2 mcg/ml (Sandra Riddle, RAMIRO) Assessment and Plan 22 y/o M with complex history including membranous glomerulonephropathy - ESRD since age 16, ascending aortic dissection 02/11, HTN, hypothyroid, previous episodes of critical hyperkalemia requiring emergent dialysis. 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 EMS was alerted. On arrival to the pt's house it was reported that he was hypotensive and bradycardic, initially requiring pacing. On arrival to the ER, an EKG displayed wide-complex tachycardia. Initially it was thought that this was VT, however, an iSTAT K came back at 9.0 and the EKG therefore may have represented sine waves. The pt was provided with Calcium gluconate, bicarb, insulin/D50. Nephrology was notified to request emergent dialysis. ESRD/hyperK / Vtach - symptomatic on admission, initially with bradycardia then wide complex tachycardia - likely sine waves. EKG largely normalized following treatment for hyperK. Emergent dialysis given. K today is 5.1 today following dialysis yesterday - nephrology consulted - they had concern about fistula and ordered an US which showed improved thrombus. Vascular surgery consulted and they will take him to the OR Sunday for fistulogram. - consulted cardiology about ICD placement given that this is his second episode of dysrhythmia due to hyperkalemia - they do not feel this is necessary , focus should be on maintaining normal potassium levels - Sinus tachycardia has improved - sr on the monitor HTN/ hypotension - restarted lisinopril and home carvedilol as patient was tachycardic and hypertensive - over the night he had marked hypotension and was borderline today with systolic pressures 90s and 100s. Held lisinopril and cut carvedilol in half Sepsis of unknown origin - patient was febrile last evening, hypotensive over the night with hr in the 90s - femoral line discontinued - procalcitonin was marginally elevated as was c reactive protein and sed rate. - Continue cefepime - patient has not been febrile today, vss Hypothyroid - cont Synthroid Leg pain secondary to IO - continue lidocaine patch - oxycodone prn, IV dilaudid changed to IVmorphine q6h - will cut back dilaudid to every 6 hours as patient is somnolent - right tib/fib xray negative for acute process - US lower extremity negative for clot - pain management consulted but felt they couldn't assess patient due to drowsiness this morning. - MRI of the leg shows - edema/fluid seen primarily surrounding the tibia and extending into the deep fascial planes and a few of the proximal lower leg muscles as described above. There is also anteromedial subcutaneous edema. These findings are nonspecific fasciitis/myositis and could be due to an infectious or possibly a posttraumatic process. No loculated fluid collections at this time to suggest an abscess. - There is also mild nonspecific patchy edema-like marrow signal seen throughout the majority of the tibia. This can also be seen in the setting of an infectious or reactive process. A bone infarct could also have a similar appearance but is considered less likely. Full code DVT proph - heparin subq (Sandra Riddle, RAMIRO) Reviewed: Pt Seen/Exam by Me (Roseanne Ross MD) History NETWORKING SPECIALIST Supervision Note: I was present with RAMIRO Riddle during the history and exam. I discussed the case with the resident and agree with the findings and plan as documented in the note. Any exceptions or clarifications are listed here: Continues to have severe right leg pain from the knee to the ankle although seems to be slightly improved today. No further fevers since yesterday but BCxs just came back +GPC in clusters. He has no other complaints. Hypotensive overnight but pt tells me today that he definitely takes Coreg 25mg bid NOT 50mg as his mom confirmed for us yesterday. So his hypotension may have been due to the 50mg of Coreg. Vitals reviewed NAD, AAOx3 Reg rhythm, tachycardic, 3/6 LUIS MIGUEL at [facility] CTAB no wcr Abd +BS soft NT ND Ext: LUE with AV, some ecchymosis overlying, right leg with small scab at IO site, +TTP over entire anterior tibia and some in popiliteal fossa, no masses, no calf tenderness, calf is soft, mild edema prox anterior tibia, no ecchymosis , no erythema. 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 Treated with Calcium gluconate, D10/insulin, Bicarb, and emergent dialysis. With hyperkalemia again today requiring repeat HD. Fever/Septicemia--> with severe right leg pain, BCxs positive for GPC in clusters from the previous femoral CVC. MRI right leg with edema and bone marrow changes, unsure if related to infectious process vs. what would be expected after IO? Started empiric abx with Cefepime and Vanco, but now will dc Cefepime and continue Vanco alone -Femoral line already removed so hopefully that was the source PCT mildly elevated , Crp and ESR elevated but not high enough to be consistent with osteomyelitis. -Discussed with Infectious Disease on phone-consulted -tib/fib xray negative, Doppler neg for RLE DVT but couldn't visualize veins more proximal due to femoral line -Consult Orthopedics-saw pt today and thought secondary to IO, but not sure if they saw the MRI-awaiting call back to discuss his case further given ongoing severe pain -repeat Blood cultures now -decrease morphine dose to 2mg given sedation and low BPs, and with ESRD, should need lower doses-morphine is dialyzable and so may be getting less pain relief when it is removed with HD -Appreciate Ticket Puller and Nephrology management -HD again today for hyperkalemia Hypotension-may be from too high of a dose of COreg-reduced to 25mg bid, holding lisinopril -Consult Cardio to see about need for AICD for primary prevention given recurrent h/o severe hyperkalemia -not recommended-appreciate consult Documented By: Roseanne Ross (Roseanne Ross MD)
--- NOTE | 2017-05-16 15:14 | CONSULTATION REPORT ---
DATE OF CONSULTATION: 05/16/2017 HISTORY: The patient presents as a 22-year-old white male being seen and evaluated with multiple medical problems with a history of end-stage renal disease since age 16, has also had history of hypertension, hyperkalemia, heart arrhythmias and aortic dissection, presents after having right lower leg pain after having an intraosseous IV placed upon transportation to the hospital. On clinical examination of his right lower extremity, he does have tenderness about his anterior tibia. Clinical examination is otherwise benign. No evidence of neurovascular compromise is noted. No evidence of compartment syndrome is noted. Soft compartments, anterior and posterior are all soft. The patient is neurovascularly and neurologically intact. He has pain basically from his intraosseous IV. X-rays unremarkable. As far as treating this with supportive therapy, I do not think it is necessary for any type of MRI scans or further imaging unless the symptoms would change. We will follow with you. ASSESSMENT: Right leg pain with periostitis status post intraosseous IV. PLAN: For conservative management and follow as needed.
[2017-05-16] MEDS ORDERED: CARV25TA PO (16:10)
[2017-05-16] MEDS ORDERED: CEFEPIME IV 500 MG in SYRINGE 0 ML IV SCH (18:00)
[2017-05-16] MEDS: ACETAMINOPHEN 325 MG TAB PO PRN (19:33)
[2017-05-16] MEDS ORDERED: NURSING VERBAL MED ORDER ONE (20:45)
[2017-05-16] MEDS: ATORVASTATIN 40 MG TAB PO SCH (21:36)
[2017-05-16] MEDS: GABAPENTIN 300 MG CAP PO SCH (21:36)
[2017-05-17] VITALS (8 sets, daily range): BP systolic 85–125; BP diastolic 51–74; PULSE 74–105; TEMP 36.4–36.9; O2SAT 95–100
[2017-05-17] MEDS: MoRPHine SULFATE 4 MG/ML 1 ML CARP\\VIAL IV PRN ×3 (02:04→17:03)
[2017-05-17] MEDS: ACETAMINOPHEN 325 MG TAB PO PRN (05:38)
[2017-05-17] MEDS: OXYCODONE HCL IR 5 MG TAB (IMMEDIATE RELEASE) PO PRN ×4 (05:38→15:09)
[2017-05-17] MEDS: HEPARIN SOD 5000 UNIT/0.5 ML CARP SQ SCH ×3 (05:39→22:27)
[2017-05-17] MEDS: LEVOTHYROXINE 50 MCG TAB PO SCH (05:39)
[2017-05-17 06:07] LABS: BASO % 0.7 %; BASO ABS # 0.05 K/uL (0-0.2); EOS % 7.2 %; EOS ABS # 0.51 K/uL (0-0.5); HEMATOCRIT 41.1 % (42-52); HEMOGLOBIN 14.1 g/dL (14.0-18.0); IG# 0.01 K/uL (0.00-0.02); LYMPH % 15.8 %; LYMPH ABS # 1.12 K/uL (1.2-3.4); MEAN CELL VOLUME 96.9 fL (80-100); MEAN CORPUSCULAR HEMOGLOBIN 33.3 pg (25-34); MEAN CORPUSCULAR HGB CONC 34.3 g/dl (32-36); MEAN PLATELET VOLUME 9.8 fL (7.4-10.4); MONO % 10.4 %; MONO ABS # 0.74 K/uL (0.11-0.59); NEUT % 65.8 %; NEUT ABS # 4.68 K/uL (1.4-6.5); PLATELET COUNT 145 K/uL (130-400); RED CELL DISTRIBUTION WIDTH CV 16.2 % (11.5-14.5); RED CELL DISTRIBUTION WIDTH SD 57.4 fL (36.4-46.3); WHITE BLOOD COUNT 7.11 K/uL (4.8-10.8)
[2017-05-17 06:57] LABS: CALCIUM 9.5 mg/dl (8.5-10.1); CREATININE 5.74 mg/dl (0.60-1.40); PHOSPHORUS 6.5 mg/dl (2.5-4.9); POTASSIUM 3.5 mmol/L (3.5-5.1)
[2017-05-17] MEDS: SEVELAMER HYDROCH 800 MG TAB PO SCH ×3 (08:20→17:03)
[2017-05-17] MEDS: SERTRALINE HCL 50 MG TAB PO SCH (08:20)
[2017-05-17] MEDS: LIDODERM (LIDOCAINE) PATCH 5% TD SCH (08:20)
[2017-05-17] MEDS: GABAPENTIN 100 MG CAP PO SCH (08:21)
[2017-05-17] MEDS: CARVEDILOL 25 MG TAB PO SCH ×2 (08:24→19:34)
--- NOTE | 2017-05-17 10:29 | Nephrology Progress Note ---
Nephrology Progress Note Date of Service May 17, 2017. Chief Complaint ESRD requiring HD Subjective Mr. Clay was seen & examined in the ICU this morning. He completed 3 hours HD yesterday. AVF venous pressure < 200 mm HG but Qb limited to 300 cc/min. No UF obtained due to relative hypotension. Mr. Clay voices no new medical concerns. He is scheduled for fistulogram in the am. Review of Systems Constitutional: No fever Cardiovascular: No chest pain Respiratory: No dyspnea at rest Abdomen: No pain, No nausea, No vomiting Extremities: No leg edema A complete review of systems was performed. Pertinent positives are noted above. All other systems are negative. Vital Signs Last 8 Hrs Date Time Temp Pulse Resp B/P (MAP) Pulse Ox O2 Delivery O2 Flow Rate FiO2 05/17/17 08:25 85/51 (62) 05/17/17 08:00 Room Air 05/17/17 07:25 36.9 103 18 88/51 (63) 95 Room Air 05/17/17 04:00 Room Air 05/17/17 03:40 36.8 105 15 106/62 (77) 98 Room Air Last Recorded Weight Weight (Kilograms): 61.700 Physical Exam General Appearance: no apparent distress Head: normocephalic, atraumatic Eyes: PERRL, EOMI Neck: no adenopathy Respiratory/Chest: lungs clear, no respiratory distress Cardiovascular: regular rate, rhythm Abdomen/GI: normal bowel sounds, non tender, soft Extremities/Musculoskelatal: no calf tenderness, no pedal edema Neurologic/Psych: alert, oriented x 3 Family History Cancer Hypertension Negative for CKD/ESRD Social History Smoking Status: Never smoker Drug Use: none Marital Status: single 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 Lives with mother Laboratory Results Past 24 Hours 05/17/17 05:31 Red Blood Count 4.24, Mean Corpuscular Volume 96.9, Mean Corpuscular Hemoglobin 33.3, Mean Corpuscular Hemoglobin Concent 34.3, Mean Platelet Volume 9.8, Neutrophils (%) (Auto) 65.8, Lymphocytes (%) (Auto) 15.8, Monocytes (%) (Auto) 10.4, Eosinophils (%) (Auto) 7.2, Basophils (%) (Auto) 0.7, Neutrophils # (Auto ) 4.68, Lymphocytes # (Auto) 1.12, Monocytes # (Auto) 0.74, Eosinophils # (Auto ) 0.51, Basophils # (Auto) 0.05 05/17/17 05:31 Test 05/17/17 05:31 White Blood Count 7.11 K/uL (4.8-10.8) Red Blood Count 4.24 M/uL (4.7-6.1) Hemoglobin 14.1 g/dL (14.0-18.0) Hematocrit 41.1 % (42-52) Mean Corpuscular Volume 96.9 fL (80-100) Mean Corpuscular Hemoglobin 33.3 pg (25-34) Mean Corpuscular Hemoglobin Concent 34.3 g/dl (32-36) Platelet Count 145 K/uL (130-400) Mean Platelet Volume 9.8 fL (7.4-10.4) Neutrophils (%) (Auto) 65.8 % Lymphocytes (%) (Auto) 15.8 % Monocytes (%) (Auto) 10.4 % Eosinophils (%) (Auto) 7.2 % Basophils (%) (Auto) 0.7 % Neutrophils # (Auto) 4.68 K/uL (1.4-6.5) Lymphocytes # (Auto) 1.12 K/uL (1.2-3.4) Monocytes # (Auto) 0.74 K/uL (0.11-0.59) Eosinophils # (Auto) 0.51 K/uL (0-0.5) Basophils # (Auto) 0.05 K/uL (0-0.2) RDW Standard Deviation 57.4 fL (36.4-46.3) RDW Coefficient of Variation 16.2 % (11.5-14.5) Immature Granulocyte % (Auto) 0.1 % Immature Granulocyte # (Auto) 0.01 K/uL (0.00-0.02) Anion Gap 11.0 mmol/L (3-11) Est Creatinine Clear Calc Drug Dose 17.8 ml/min Estimated GFR () 15.0 Estimated GFR (Non- 13.0 BUN/Creatinine Ratio 4.6 (10-20) Calcium Level 9.5 mg/dl (8.5-10.1) Phosphorus Level 6.5 mg/dl (2.5-4.9) Magnesium Level 2.5 mg/dl (1.8-2.4) Procalcitonin 1.32 ng/ml (0-0.5) Random Vancomycin Level 22.9 mcg/ml Allergies Coded Allergies: Penicillins (Unverified Allergy, Severe, FACE SWELLS, 05/14/17) Amoxicillin (Verified Allergy, Unknown, ?, 05/14/17) Medications Current Inpatient Medications Medications (Trade) Dose Ordered Sig/Moises Route Start Time Stop Time Status Last Admin Dose Admin Lorazepam (Ativan Inj) 0.5 mg Q4H PRN IV 05/14/17 00:30 06/13/17 00:29 05/15/17 15:34 0.5 MG Atorvastatin Calcium (Lipitor Tab) 40 mg QPM PO 05/14/17 21:00 06/13/17 20:59 05/16/17 21:36 40 MG Gabapentin (Neurontin Cap) 200 mg QAM PO 05/14/17 09:00 06/13/17 08:59 05/17/17 08:21 200 MG Gabapentin (Neurontin Cap) 300 mg HS PO 05/14/17 21:00 06/13/17 20:59 05/16/17 21:36 300 MG Levothyroxine Sodium (Synthroid Tab) 50 mcg DAILYBB PO 05/14/17 06:00 06/13/17 05:59 05/17/17 05:39 50 MCG Sertraline HCl (Zoloft Tab) 50 mg DAILY PO 05/14/17 09:00 06/13/17 08:59 05/17/17 08:20 50 MG Miscellaneous Information (Order Awaiting Action) 1 ea QS N/A 05/14/17 08:00 06/13/17 07:59 Sevelamer HCl (Renagel Tab) 1,600 mg TIDM PO 05/14/17 07:15 06/13/17 07:59 05/17/17 08:20 1,600 MG Heparin Sodium (Porcine) (Heparin Sq 5000 Unit/0.5ml) 5,000 unit Q8 SQ 05/14/17 09:00 06/13/17 08:59 05/16/17 14:25 5,000 UNIT Lidocaine (Lidoderm Patch 5%) 1 patch QAM TD 05/15/17 09:00 06/14/17 08:59 05/17/17 08:20 1 PATCH Miscellaneous (Remove Lidoderm Patch) 1 ea DAILY@21 N/A 05/14/17 21:00 06/13/17 20:59 05/16/17 21:00 1 EA Lisinopril (Zestril Tab) 40 mg QAM PO 05/15/17 09:00 06/14/17 08:59 Future Hold 05/15/17 14:47 40 MG Oxycodone HCl (Roxicodone Immediate Rel Tab) 5 mg Q4H PRN PO 05/14/17 16:30 05/28/17 16:29 05/17/17 05:38 5 MG Non-Formulary Medication (Non-Formulary Patient'S Own Med) 1 ea DAILY PRN PO 05/14/17 21:45 06/13/17 21:44 05/15/17 21:59 1 EA Acetaminophen (Tylenol Tab) 650 mg Q6H PRN PO 05/15/17 17:15 06/14/17 17:14 05/17/17 05:38 650 MG Miscellaneous Information (Consult) 1 ea UD PRN N/A 05/15/17 17:15 06/14/17 17:14 Carvedilol (Coreg Tab) 25 mg BID PO 05/16/17 09:00 06/15/17 08:59 05/16/17 21:37 25 MG Morphine Sulfate (MoRPHine SULFATE INJ) 2 mg Q6H PRN IV 05/16/17 16:00 05/30/17 02:59 05/17/17 02:04 4 MG Clindamycin Phosphate 54 ml @ 100 mls/hr PREOP IV 05/18/17 06:00 05/18/17 18:00 Impression (1) Hyperkalemia (2) ESRD on hemodialysis AVF with small area of surrounding ecchymosis suggestive of recent infiltration. 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 Hyperkalemia may be related to recirculation during HD. Recommendations -- Potassium rapidly rises in between HD treatments. Patient is on low K diet. Review of HD treatment sheets reveals venous pressure 210 - 240 mmHG at Qb 400 cc/min. Reviewed with vascular surgery. Patient scheduled for fistulogram in am -- Will schedule next HD for tomorrow following fistulogram -- Cardiology recommendations: monitor for now. No acute indication for AICD -- Will recheck PRP in am
--- NOTE | 2017-05-17 10:45 | Medical Consult ---
Consultation Date of Consultation: May 17, 2017. 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 When found by EMS, patient was bradycardic with abnormal EKG, with evidence of severe hyperkalemia. The patient had placement of intraosseous catheter into his right tibia. He has undergone emergent dialysis and treatment for his hyperkalemia, and has improved clinically and hemodynamically. Has spiked transient fever, and now single set of blood cultures growing coagulase-negative Staph. Patient complaining of severe pain in his right leg. MRI has been obtained which shows evidence of myositis and marrow edema but likely related to catheter placement. Repeat blood cultures are pending. Past Medical/Surgical History Medical Problems: (1) Acute hyperkalemia Status: Acute (2) Acute renal failure Status: Acute (3) Back pain Status: Acute (4) Bilateral pneumonia Status: Acute (5) Cardiac arrhythmia Status: Acute (6) Creatinine elevation Status: Acute (7) Dehydration Status: Acute (8) Dysrhythmia Status: Acute (9) ESR raised Status: Acute (10) Fluid overload Status: Acute (11) Hypertensive emergency Status: Acute (12) Intractable vomiting Status: Acute (13) Leukocytosis Status: Acute (14) Nausea vomiting and diarrhea Status: Acute (15) Non-occlusive thrombus Status: Acute (16) Pleural effusion Status: Acute (17) Pneumonia Status: Acute (18) Prolonged QT interval Status: Acute (19) Supratherapeutic INR Status: Acute (20) Vomiting Status: Acute Social History Problems: (1) Status post kidney transplant Status: Acute Medical Problems: (1) Altered mental status (2) Cardiopulmonary arrest with successful resuscitation (3) Chest pain (4) Chronic renal failure syndrome (5) Diabetic complication (6) Encounter for hemodialysis for ESRD (7) ESRD on hemodialysis (8) History of - hypertension (9) Hyperglycemia (10) Hyperkalemia (11) Hyperkalemia (12) Hypertension (13) Hypotension (14) Thrombosis of arteriovenous dialysis fistula (15) Thrombosis of arteriovenous dialysis fistula (16) Wide-complex tachycardia Surgical Problems: (1) Aortic dissection (2) Renal transplant, status post Family History Cancer Hypertension Social History Smoking Status: Never Smoker Drug Use: none Marital Status: single Housing Status: lives with family Occupation Status: student Allergies Coded Allergies: Penicillins (Unverified Allergy, Severe, FACE SWELLS, 05/14/17) Amoxicillin (Verified Allergy, Unknown, ?, 05/14/17) Current Inpatient Medications Current Inpatient Medications Medications (Trade) Dose Ordered Sig/Moises Route Start Time Stop Time Status Last Admin Dose Admin Lorazepam (Ativan Inj) 0.5 mg Q4H PRN IV 05/14/17 00:30 06/13/17 00:29 05/15/17 15:34 0.5 MG Atorvastatin Calcium (Lipitor Tab) 40 mg QPM PO 05/14/17 21:00 06/13/17 20:59 05/16/17 21:36 40 MG Gabapentin (Neurontin Cap) 200 mg QAM PO 05/14/17 09:00 06/13/17 08:59 05/17/17 08:21 200 MG Gabapentin (Neurontin Cap) 300 mg HS PO 05/14/17 21:00 06/13/17 20:59 05/16/17 21:36 300 MG Levothyroxine Sodium (Synthroid Tab) 50 mcg DAILYBB PO 05/14/17 06:00 06/13/17 05:59 05/17/17 05:39 50 MCG Sertraline HCl (Zoloft Tab) 50 mg DAILY PO 05/14/17 09:00 06/13/17 08:59 05/17/17 08:20 50 MG Miscellaneous Information (Order Awaiting Action) 1 ea QS N/A 05/14/17 08:00 06/13/17 07:59 Sevelamer HCl (Renagel Tab) 1,600 mg TIDM PO 05/14/17 07:15 06/13/17 07:59 05/17/17 08:20 1,600 MG Heparin Sodium (Porcine) (Heparin Sq 5000 Unit/0.5ml) 5,000 unit Q8 SQ 05/14/17 09:00 06/13/17 08:59 05/16/17 14:25 5,000 UNIT Lidocaine (Lidoderm Patch 5%) 1 patch QAM TD 05/15/17 09:00 06/14/17 08:59 05/17/17 08:20 1 PATCH Miscellaneous (Remove Lidoderm Patch) 1 ea DAILY@21 N/A 05/14/17 21:00 06/13/17 20:59 05/16/17 21:00 1 EA Lisinopril (Zestril Tab) 40 mg QAM PO 05/15/17 09:00 06/14/17 08:59 Future Hold 05/15/17 14:47 40 MG Oxycodone HCl (Roxicodone Immediate Rel Tab) 5 mg Q4H PRN PO 05/14/17 16:30 05/28/17 16:29 05/17/17 05:38 5 MG Non-Formulary Medication (Non-Formulary Patient'S Own Med) 1 ea DAILY PRN PO 05/14/17 21:45 06/13/17 21:44 05/15/17 21:59 1 EA Acetaminophen (Tylenol Tab) 650 mg Q6H PRN PO 05/15/17 17:15 06/14/17 17:14 05/17/17 05:38 650 MG Miscellaneous Information (Consult) 1 ea UD PRN N/A 05/15/17 17:15 06/14/17 17:14 Carvedilol (Coreg Tab) 25 mg BID PO 05/16/17 09:00 06/15/17 08:59 05/16/17 21:37 25 MG Morphine Sulfate (MoRPHine SULFATE INJ) 2 mg Q6H PRN IV 05/16/17 16:00 05/30/17 02:59 05/17/17 02:04 4 MG Clindamycin Phosphate 54 ml @ 100 mls/hr PREOP IV 05/18/17 06:00 05/18/17 18:00 Heparin Sodium (Porcine) (No Heparin In Dialysis) 1 ea ONE ONCE N/A 05/18/17 06:00 05/18/17 06:01 UNV Review of Systems Constitutional: + fever, + weakness Eyes: No problem reported ENT: No problem reported Respiratory: No problem reported Cardiovascular: No problem reported Abdomen: + nausea, + vomiting Musculoskeletal: + muscle pain Genitourinary - Male: No problem reported Neurologic: + problem reported (See HPI) Psychiatric: No problem reported Endocrine: No problem reported Hematologic / Lymphatic: No problem reported Integumentary: No problem reported Allergic / Immunologic: No problem reported Physical Exam Date Time Temp Pulse Resp B/P (MAP) Pulse Ox O2 Delivery O2 Flow Rate FiO2 05/17/17 08:25 85/51 (62) 05/17/17 08:00 Room Air 05/17/17 07:25 36.9 103 18 88/51 (63) 95 Room Air 05/17/17 04:00 Room Air 05/17/17 03:40 36.8 105 15 106/62 (77) 98 Room Air 05/17/17 00:00 Room Air 05/16/17 23:23 36.8 99 14 114/69 (84) 98 Room Air 05/16/17 21:32 36.6 107 20 121/72 (88) 96 Room Air 05/16/17 20:00 Room Air 05/16/17 19:25 36.7 107 112/64 (80) 05/16/17 18:45 104 115/66 05/16/17 18:30 105 99/57 05/16/17 18:15 99 100/47 05/16/17 18:00 98 99/56 05/16/17 17:45 98 86/54 05/16/17 17:30 98 87/59 05/16/17 17:20 97 97/47 05/16/17 17:15 98 88/44 05/16/17 17:00 99 82/46 05/16/17 16:45 100 94/51 05/16/17 16:30 100 94/55 05/16/17 16:15 97 101/56 05/16/17 16:00 Room Air 05/16/17 16:00 100 109/68 05/16/17 15:54 97 107/59 05/16/17 15:45 36.5 102 111/64 (80) 05/16/17 12:00 Room Air 05/16/17 11:36 36.5 94 18 107/60 (76) 96 General Appearance: WD/WN, no apparent distress Head: normocephalic, atraumatic Eyes: normal inspection, EOMI, sclerae normal ENT: normal ENT inspection, hearing grossly normal, pharynx normal Neck: supple, no adenopathy, thyroid normal, trachea midline Respiratory/Chest: chest non-tender, lungs clear, normal breath sounds, no respiratory distress Cardiovascular: regular rate, rhythm, no gallop, no murmur Abdomen/GI: normal bowel sounds, non tender, soft, no organomegaly Back: normal inspection, no CVA tenderness Extremities/Musculoskelatal: no calf tenderness, normal capillary refill, + pertinent finding (Small scabbed in area of intraosseous catheter) Skin: normal color, warm/dry, no rash Lymphatic: no adenopathy Laboratory Results RUN DATE: 05/17/17 [facility] LAB PAGE 1 RUN TIME: 807 Specimen Inquiry PATIENT: ENRICO PEREZ LOC: [facility] U # : [id number] AGE/SX: 22/M ROOM: [facility] REG : 05/14/[address]: Roseanne Ross MD : 1995 BED: 1 DIS : STATUS: ADM IN TLOC: SPEC #: [id number] GAY: 05/15/17-1729 STATUS: RES REQ #: [id number] RECD: 05/15/17-[address] [facility] [address]: Roseanne Ross MD SOURCE: BLOOD ENTR: 05/15/17-1653 [facility] DR: Lebron Chu D.O. [facility]: Jt King M.D. Gilbert, Jennifer L., Alfredito Hardin M.D. Nydegger, Charles C M.D. Shippert, Brian W., D.O. Simoni, Eugene J., M.D. ORDERED: BLOOD CULTURE COMMENTS: Drawn from CVAD per protocol. 10 cc discard. Procedure Result Verified Site BLD CULT Preliminary 05/17/17-0808 Organism 1 COAG NEG STAPH NOT LUGDUNENSIS SENS NO SENSITIVITY TO FOLLOW One set of two positive. Isolation does not necessarily mean infection. No susceptibility tests performed. Contact microbiology laboratory [phone]) if further studies are indicated. Phoned Positive Blood Culture Gram Stain Report to DEDRICK MIRANDA on 05/16/17 At 2049 By NAGA. Results were verbalized back to NAGA. END OF REPORT Last 24 Hours Test 05/17/17 05:31 White Blood Count 7.11 K/uL Red Blood Count 4.24 M/uL Hemoglobin 14.1 g/dL Hematocrit 41.1 % Mean Corpuscular Volume 96.9 fL Mean Corpuscular Hemoglobin 33.3 pg Mean Corpuscular Hemoglobin Concent 34.3 g/dl Platelet Count 145 K/uL Mean Platelet Volume 9.8 fL Neutrophils (%) (Auto) 65.8 % Lymphocytes (%) (Auto) 15.8 % Monocytes (%) (Auto) 10.4 % Eosinophils (%) (Auto) 7.2 % Basophils (%) (Auto) 0.7 % Neutrophils # (Auto) 4.68 K/uL Lymphocytes # (Auto) 1.12 K/uL Monocytes # (Auto) 0.74 K/uL Eosinophils # (Auto) 0.51 K/uL Basophils # (Auto) 0.05 K/uL RDW Standard Deviation 57.4 fL RDW Coefficient of Variation 16.2 % Immature Granulocyte % (Auto) 0.1 % Immature Granulocyte # (Auto) 0.01 K/uL Sodium Level 130 mmol/L Potassium Level 3.5 mmol/L Chloride Level 89 mmol/L Carbon Dioxide Level 30 mmol/L Anion Gap 11.0 mmol/L Blood Urea Nitrogen 27 mg/dl Creatinine 5.74 mg/dl Est Creatinine Clear Calc Drug Dose 17.8 ml/min Estimated GFR () 15.0 Estimated GFR (Non- 13.0 BUN/Creatinine Ratio 4.6 Random Glucose 96 mg/dl Calcium Level 9.5 mg/dl Phosphorus Level 6.5 mg/dl Magnesium Level 2.5 mg/dl Procalcitonin 1.32 ng/ml Random Vancomycin Level 22.9 mcg/ml Patient Name: ENRICO PEREZ Unit Number: [id number] Dictated: 05/15/172207 Transcribed: 05/15/172207 MIKKI Printed Date/Time: [~ rep prt dt]/[~ rep prt tm] [~ rep ct labl] - [~ rep ct ivnm] [facility] [place] [address] Dictated: 05/15/172207 Transcribed: 05/15/172207 PA Printed Date/Time: [~ rep prt dt]/[~ rep prt tm] [~ rep ct labl] - [~ rep ct ivnm] [~ rep ct add3]] RIGHT TIBIA/FIBULA MRI HISTORY: Right leg severe pain,fever,recent interosseous access TECHNIQUE: Multiplanar multisequence MRI of the right lower leg was performed without the use of intravenous contrast. COMPARISON STUDY: Right tibia/fibula radiograph 05/14/2017. FINDINGS: No fracture or dislocation within the right tibia or fibula. Normal marrow signal intensity seen within the fibula. There is mild patchy edema-like marrow signal seen throughout the majority of the tibia. This is most pronounced proximally. No cortical destruction identified. There is edema/fluid surrounding the tibia and within the fascial planes of the anterolateral and deep posterior compartments. There is also mild edema within the proximal flexor hallucis longus and anterior tibialis muscles. No loculated fluid collections identified at this time. There is also subcutaneous edema seen most pronounced within the anteromedial aspect of the lower leg. No hematoma identified. IMPRESSION: 1. No fractures identified within the right lower leg. 2. Edema/fluid seen primarily surrounding the tibia and extending into the deep fascial planes and a few of the proximal lower leg muscles as described above. There is also anteromedial subcutaneous edema. These findings are nonspecific fasciitis/myositis and could be due to an infectious or possibly a posttraumatic process. No loculated fluid collections at this time to suggest an abscess. 3. There is also mild nonspecific patchy edema-like marrow signal seen throughout the majority of the tibia. This can also be seen in the setting of an infectious or reactive process. A bone infarct could also have a similar appearance but is considered less likely. Electronically signed by: Erickson Martines M.D. 05/15/2017 10:18 PM Dictated Date/Time: 05/15/2017 10:08 PM The status of this report is Signed. Draft = Not yet reviewed or approved by Radiologist. Signed = Reviewed and approved by Radiologist. <AttendingPhy>Roseanne Ross MD</AttendingPhy> <FamilyPhy>GAGE PEPE D.O.</FamilyPhy> <PrimaryPhy>Lebron Chu D.O.</PrimaryPhy> < UnitNumber>[id number]</UnitNumber> <VisitNumber>[id number]</VisitNumber> < PatientName>ENRICO PEREZ</PatientName> <DateOfBirth>1995</DateOfBirth> <Location>[facility]</Location> <ServiceDate>05/13/17</ServiceDate> <MNE>ESINDI</MNE> <OrderingPhy>Roseanne Ross MD</OrderingPhy> <OrderingPhyMNE>f rep ord dr barker </OrderingPhyMNE> <DictatingPhyMNE>f rep dict dr barker</DictatingPhyMNE> < CCListMNE>f rep ct mne</CCListMNE> <AdmittingPhyMNE>f pt admit dr barker</ AdmittingPhyMNE> <AttendingPhyMNE>f pt attend dr barker</AttendingPhyMNE> <ConsultingPhyMNE>f pt consult dr barker</ConsultingPhyMNE> <FamilyPhyMNE>f pt fam dr barker</FamilyPhyMNE> <OtherPhyMNE>f pt other dr barker</OtherPhyMNE> < PrimaryPhyMNE>f pt prim care dr barker</PrimaryPhyMNE> <ReferringPhyMNE>f pt referring dr barker</ReferringPhyMNE> Assessment & Plan 22-year-old male with end-stage renal disease on dialysis admitted hyperkalemia with hypertension and arrhythmia, with transient fever and positive blood culture, 1 bottle, positive for coagulase negative Staph. Suspect that positive blood culture represents contaminant, and await follow-up cultures for confirmation. MRI findings likely due to intraosseous catheter placement rather than cellulitis, but patient to be should continued on clindamycin pending further culture results. Will follow.
--- NOTE | 2017-05-17 11:41 | Pharmacy Progress Note ---
Pharmacy Abx Dose Short Note Date of Service May 17, 2017. Assessment & Plan Assessment * 22 year old male initially started on empiric abx therapy (vancomycin IV + cefepime IV) for fever w/ severe right leg pain * 1 of 2 BLCXs is growing CoN staph not lugdunensis (drawn from CVAD); repeat BLCX's ordered yesterday * Vancomycin continues, cefepime has been stopped * Day # 3 of antimicrobial therapy * Afebrile last 24 hours, no leukocytosis noted, BPs had been low much during HD yesterday but improved overnight Plan Vancomycin * Received vancomycin 1250mg (20mg/kg) IV x 1 at 1852 on 05/15, this was after receiving HD earlier in the day * Random level = 38.2 05/16 AM * 3 hr HD session on 05/16 * Random level = 22.9 05/17 AM * HD has not been ordered for today, therefore will not redose vancomycin at this time. * HD will likely be performed tomorrow. Will check random level w/ AM labs tomorrow to help guide redosing. Unclear if patient produces much urine. Pharmacy will continue to follow and will adjust dose/frequency as necessary. Thank you. Pharmacy will continue to follow and will adjust dose/frequency as necessary. Thank you.
--- NOTE | 2017-05-17 16:19 | Orthopedic Progress Note ---
Orthopedic Progress Note Date of Service May 17, 2017. Subjective Additional Notes: Pt awake, alert. States he continues to have pain in his right lower extremity. Has not dissipated. No other complaints. Objective RLE elevated up on 2 pillows. Pt with pain on light palpation of the anterior and posterior compartments. Compartments feel soft but he has moderate pain with palpation. Able to flex/extend the ankle with some pain noted. Moving the toes well. No numbness or tingling in the toes/foot at this time. Date Time Temp Pulse Resp B/P (MAP) Pulse Ox O2 Delivery O2 Flow Rate FiO2 05/17/17 16:07 36.9 96 18 124/74 (91) 95 05/17/17 16:00 Room Air 05/17/17 12:00 Room Air 05/17/17 11:28 36.5 88 20 116/72 (87) 100 Room Air 05/17/17 11:11 102/68 (79) 05/17/17 08:25 85/51 (62) 05/17/17 08:00 Room Air 05/17/17 07:25 36.9 103 18 88/51 (63) 95 Room Air 05/17/17 04:00 Room Air 05/17/17 03:40 36.8 105 15 106/62 (77) 98 Room Air 05/17/17 00:00 Room Air 05/16/17 23:23 36.8 99 14 114/69 (84) 98 Room Air 05/16/17 21:32 36.6 107 20 121/72 (88) 96 Room Air 05/16/17 20:00 Room Air 05/16/17 19:25 36.7 107 112/64 (80) 05/16/17 18:45 104 115/66 05/16/17 18:30 105 99/57 05/16/17 18:15 99 100/47 05/16/17 18:00 98 99/56 05/16/17 17:45 98 86/54 05/16/17 17:30 98 87/59 05/16/17 17:20 97 97/47 05/16/17 17:15 98 88/44 05/16/17 17:00 99 82/46 05/16/17 16:45 100 94/51 05/16/17 16:30 100 94/55 05/16/17 16:15 97 101/56 Laboratory Results 24 Hours: Test 05/17/17 05:31 White Blood Count 7.11 K/uL Red Blood Count 4.24 M/uL Hemoglobin 14.1 g/dL Hematocrit 41.1 % Mean Corpuscular Volume 96.9 fL Mean Corpuscular Hemoglobin 33.3 pg Mean Corpuscular Hemoglobin Concent 34.3 g/dl Platelet Count 145 K/uL Mean Platelet Volume 9.8 fL Neutrophils (%) (Auto) 65.8 % Lymphocytes (%) (Auto) 15.8 % Monocytes (%) (Auto) 10.4 % Eosinophils (%) (Auto) 7.2 % Basophils (%) (Auto) 0.7 % Neutrophils # (Auto) 4.68 K/uL Lymphocytes # (Auto) 1.12 K/uL Monocytes # (Auto) 0.74 K/uL Eosinophils # (Auto) 0.51 K/uL Basophils # (Auto) 0.05 K/uL Assessment & Plan Assessment: Pain RLE with recent IO IV access that was needed prior to admit. Continue Ice/elevation. h/o compartment syndrome on the LLE in the past. Dr Chang out of town presently. 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
--- NOTE | 2017-05-17 17:40 | Hospitalist Progress Note ---
Hospitalist Progress Note Date of Service May 17, 2017. (Sandra Riddle CRNP) Subjective Pt evaluation today including: conversation w/ patient, physical exam, chart review, lab review, review of inpatient medication list Voiding: no voiding problems Mr. Clay continues to have pain at his right aranda IO site. Otherwise he is without complaints. No events on telemetry ROS Constitutional: no chills, aches, sweats or fever Respiratory: no sob,cough, sputum, or wheezing Cardiac: no chest pain, palpitations, edema, orthopnea or lightheadedness GI: no abdominal pain, nausea, vomiting, diarrhea or constipation : no dysuria or hesitancy Extremities: see HPI Skin: no rash All other systems reviewed and negative (Sandra Riddle CRNP) Medications Medications Administered Medications (Trade) Dose Ordered Sig/Moises Route Start Time Stop Time Status Last Admin Dose Admin Lidocaine HCl (Lidocaine 2% 20MG/Ml Syringe) 100 mg STK-MED ONCE IV 05/13/17 23:22 05/13/17 23:23 DC 05/13/17 23:22 100 MG Albuterol Sulfate (Ventolin 0.5% 2.5MG/0.5ML Neb) 7.5 mg STK-MED ONCE INH 05/13/17 23:28 05/13/17 23:29 DC 05/13/17 23:47 7.5 MG Albuterol Sulfate (Ventolin 0.083% 2.5MG/3ML Neb) 2.5 mg STK-MED ONCE INH 05/13/17 23:28 05/13/17 23:29 DC 05/13/17 23:47 2.5 MG Insulin Human Regular (novoLIN-R U-100 PER UNIT) 10 units NOW STAT IV 05/13/17 23:38 05/13/17 23:42 DC 05/13/17 23:45 10 UNITS Dextrose (Dextrose 50% 50ML Syringe) 50 ml NOW STAT IV 05/13/17 23:38 05/13/17 23:42 DC 05/13/17 23:45 50 ML Fentanyl Citrate (Fentanyl Inj) 50 mcg NOW STAT IV 05/14/17 00:25 05/14/17 00:27 DC 05/14/17 00:33 50 MCG Lorazepam (Ativan Inj) 0.5 mg Q4H PRN IV 05/14/17 00:30 06/13/17 00:29 05/15/17 15:34 0.5 MG Heparin Sodium (Porcine) (No Heparin In Dialysis) 1 ea TODAY@0100 N/A 05/14/17 01:00 05/14/17 23:59 DC 05/14/17 12:09 1 EA Diphenhydramine HCl (Benadryl Inj) 50 mg STK-MED ONCE .ROUTE 05/14/17 01:17 05/14/17 01:18 DC 05/14/17 03:02 50 MG Atorvastatin Calcium (Lipitor Tab) 40 mg QPM PO 05/14/17 21:00 06/13/17 20:59 05/16/17 21:36 40 MG Carvedilol (Coreg Tab) 50 mg BID PO 05/14/17 09:00 05/16/17 15:54 DC 05/15/17 20:01 50 MG Gabapentin (Neurontin Cap) 200 mg QAM PO 05/14/17 09:00 06/13/17 08:59 05/17/17 08:21 200 MG Gabapentin (Neurontin Cap) 300 mg HS PO 05/14/17 21:00 06/13/17 20:59 05/16/17 21:36 300 MG Levothyroxine Sodium (Synthroid Tab) 50 mcg DAILYBB PO 05/14/17 06:00 06/13/17 05:59 05/17/17 05:39 50 MCG Sertraline HCl (Zoloft Tab) 50 mg DAILY PO 05/14/17 09:00 06/13/17 08:59 05/17/17 08:20 50 MG Sevelamer HCl (Renagel Tab) 1,600 mg TIDM PO 05/14/17 07:15 06/13/17 07:59 05/17/17 17:03 1,600 MG Heparin Sodium (Porcine) (Heparin Sq 5000 Unit/0.5ml) 5,000 unit Q8 SQ 05/14/17 09:00 06/13/17 08:59 05/17/17 13:32 5,000 UNIT Hydromorphone HCl (Dilaudid Inj) 0.5 mg STK-MED ONCE .ROUTE 05/14/17 06:51 05/14/17 06:52 DC 05/14/17 06:54 0.25 MG Perflutren Lipid Microsphere (Definity) 2 ml ONE ONCE IV 05/14/17 10:24 05/14/17 10:25 DC 05/14/17 10:25 2 ML Lidocaine (Lidoderm Patch 5%) 1 patch QAM TD 05/15/17 09:00 06/14/17 08:59 05/17/17 08:20 1 PATCH Miscellaneous (Remove Lidoderm Patch) 1 ea DAILY@21 N/A 05/14/17 21:00 06/13/17 20:59 05/16/17 21:00 1 EA Lidocaine (Lidoderm Patch 5%) 1 patch ONE ONCE TD 05/14/17 12:00 05/14/17 12:01 DC 05/14/17 11:57 1 PATCH Hydromorphone HCl (Dilaudid Inj) 0.5 mg ONE ONCE IV 05/14/17 13:36 05/14/17 13:37 DC 05/14/17 13:42 0.5 MG Heparin Sodium (Porcine) (Heparin Iv Bolus) 2,000 unit TODAY IV 05/15/17 08:00 05/15/17 08:01 DC 05/15/17 10:30 2,000 UNIT Heparin Sodium (Porcine) (Heparin Iv Bolus) 500 unit Q1H IV 05/15/17 09:00 05/15/17 10:01 DC 05/15/17 12:30 500 UNIT Lisinopril (Zestril Tab) 40 mg QAM PO 05/15/17 09:00 06/14/17 08:59 Future Hold 05/15/17 14:47 40 MG Oxycodone HCl (Roxicodone Immediate Rel Tab) 5 mg Q4H PRN PO 05/14/17 16:30 05/28/17 16:29 05/17/17 15:09 5 MG Non-Formulary Medication (Non-Formulary Patient'S Own Med) 1 ea DAILY PRN PO 05/14/17 21:45 06/13/17 21:44 05/15/17 21:59 1 EA Morphine Sulfate (MoRPHine SULFATE INJ) 4 mg Q4H PRN IV 05/15/17 01:15 05/15/17 15:52 DC 05/15/17 11:41 4 MG Morphine Sulfate (MoRPHine SULFATE INJ) 4 mg STK-MED ONCE .ROUTE 05/15/17 01:11 05/15/17 01:12 DC 05/15/17 01:14 4 MG Hydromorphone HCl (Dilaudid Inj) 0.5 mg STK-MED ONCE .ROUTE 05/15/17 08:57 05/15/17 08:58 DC 05/15/17 08:57 0.5 MG Diphenhydramine HCl (Benadryl Inj) 25 mg NOW STAT IV 05/15/17 09:47 05/15/17 10:16 DC 05/15/17 10:45 25 MG Hydromorphone HCl (Dilaudid Inj) 0.5 mg Q4H PRN IV 05/15/17 15:45 05/16/17 02:58 DC 05/15/17 20:06 0.5 MG Acetaminophen (Tylenol Tab) 650 mg Q6H PRN PO 05/15/17 17:15 06/14/17 17:14 05/17/17 05:38 650 MG Vancomycin HCl 1250 mg/Sodium Chloride 275 ml @ 125 mls/hr NOW ONCE IV 05/15/17 17:45 05/15/17 19:56 DC 05/15/17 18:52 125 MLS/HR Cefepime HCl 1000 mg/Syringe 11 ml @ 5.5 mls/min TODAY@1800 ONCE IV 05/15/17 18:00 05/15/17 18:01 DC 05/15/17 18:52 5.5 MLS/MIN Sodium Chloride 500 ml @ 125 mls/hr Q4H IV 05/16/17 00:30 05/16/17 04:29 DC 05/16/17 00:55 125 MLS/HR Morphine Sulfate (MoRPHine SULFATE INJ) 4 mg Q6H PRN IV 05/16/17 03:00 05/16/17 15:54 DC 05/16/17 15:40 4 MG Lidocaine (Lidoderm Patch 5%) 1 patch NOW ONCE TD 05/16/17 03:45 05/16/17 03:50 DC 05/16/17 05:03 1 PATCH Miscellaneous (Remove Lidoderm Patch) 1 ea TODAY@1600 N/A 05/16/17 16:00 05/16/17 16:01 DC 05/16/17 16:01 1 EA Carvedilol (Coreg Tab) 25 mg BID PO 05/16/17 09:00 06/15/17 08:59 05/16/17 21:37 25 MG Morphine Sulfate (MoRPHine SULFATE INJ) 2 mg Q6H PRN IV 05/16/17 16:00 05/30/17 02:59 05/17/17 17:03 2 MG (Sandra Riddle, RAMIRO) Objective Vital Signs Date Time Temp Pulse Resp B/P (MAP) Pulse Ox O2 Delivery O2 Flow Rate FiO2 05/17/17 16:07 36.9 96 18 124/74 (91) 95 05/17/17 16:00 Room Air 05/17/17 12:00 Room Air 05/17/17 11:28 36.5 88 20 116/72 (87) 100 Room Air 05/17/17 11:11 102/68 (79) 05/17/17 08:25 85/51 (62) 05/17/17 08:00 Room Air 05/17/17 07:25 36.9 103 18 88/51 (63) 95 Room Air 05/17/17 04:00 Room Air 05/17/17 03:40 36.8 105 15 106/62 (77) 98 Room Air 05/17/17 00:00 Room Air 05/16/17 23:23 36.8 99 14 114/69 (84) 98 Room Air 05/16/17 21:32 36.6 107 20 121/72 (88) 96 Room Air 05/16/17 20:00 Room Air 05/16/17 19:25 36.7 107 112/64 (80) 05/16/17 18:45 104 115/66 05/16/17 18:30 105 99/57 05/16/17 18:15 99 100/47 05/16/17 18:00 98 99/56 05/16/17 17:45 98 86/54 05/16/17 17:30 98 87/59 (Sandra Riddle CRNP) Physical Exam Notes: General: no distress Eyes: normal inspection, PERLL Respiratory: chest non tender, clear to auscultation, normal breath sounds, no respiratory distress, no accessory muscle use Cardiac: regular rate and rhythm, no rub or gallop, no murmur, no edema, no jvd GI/: active bowel sounds, no abd pain or tenderness, soft, non distended Extremities: normal range of motion, normal strength, left aranda painful to palpation Neuro/Psych: alert and oriented x 3, normal mood and affect Skin: normal color, dry (Sandra Riddle CRNP) Laboratory Results Last 24 Hours Test 05/17/17 05:31 White Blood Count 7.11 K/uL Red Blood Count 4.24 M/uL Hemoglobin 14.1 g/dL Hematocrit 41.1 % Mean Corpuscular Volume 96.9 fL Mean Corpuscular Hemoglobin 33.3 pg Mean Corpuscular Hemoglobin Concent 34.3 g/dl Platelet Count 145 K/uL Mean Platelet Volume 9.8 fL Neutrophils (%) (Auto) 65.8 % Lymphocytes (%) (Auto) 15.8 % Monocytes (%) (Auto) 10.4 % Eosinophils (%) (Auto) 7.2 % Basophils (%) (Auto) 0.7 % Neutrophils # (Auto) 4.68 K/uL Lymphocytes # (Auto) 1.12 K/uL Monocytes # (Auto) 0.74 K/uL Eosinophils # (Auto) 0.51 K/uL Basophils # (Auto) 0.05 K/uL RDW Standard Deviation 57.4 fL RDW Coefficient of Variation 16.2 % Immature Granulocyte % (Auto) 0.1 % Immature Granulocyte # (Auto) 0.01 K/uL Sodium Level 130 mmol/L Potassium Level 3.5 mmol/L Chloride Level 89 mmol/L Carbon Dioxide Level 30 mmol/L Anion Gap 11.0 mmol/L Blood Urea Nitrogen 27 mg/dl Creatinine 5.74 mg/dl Est Creatinine Clear Calc Drug Dose 17.8 ml/min Estimated GFR () 15.0 Estimated GFR (Non- 13.0 BUN/Creatinine Ratio 4.6 Random Glucose 96 mg/dl Calcium Level 9.5 mg/dl Phosphorus Level 6.5 mg/dl Magnesium Level 2.5 mg/dl Procalcitonin 1.32 ng/ml Random Vancomycin Level 22.9 mcg/ml (Sandra Riddle CRNP) Assessment and Plan 22 y/o M with complex history including membranous glomerulonephropathy - ESRD since age 16, ascending aortic dissection 02/11, HTN, hypothyroid, previous episodes of critical hyperkalemia requiring emergent dialysis. 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 EMS was alerted. On arrival to the pt's house it was reported that he was hypotensive and bradycardic, initially requiring pacing. On arrival to the ER, an EKG displayed wide-complex tachycardia. Initially it was thought that this was VT, however, an iSTAT K came back at 9.0 and the EKG therefore may have represented sine waves. The pt was provided with Calcium gluconate, bicarb, insulin/D50. Nephrology was notified to request emergent dialysis. ESRD/hyperK / Vtach - symptomatic on admission, initially with bradycardia then wide complex tachycardia - likely sine waves. EKG largely normalized following treatment for hyperK. Emergent dialysis given. K today is 3.5 today - nephrology consulted - they had concern about fistula and ordered an US which showed improved thrombus. Vascular surgery consulted and they will take him to the OR Sunday for fistulogram. Patient will be dialyzed after that - consulted cardiology about ICD placement given that this is his second episode of dysrhythmia due to hyperkalemia - they do not feel this is necessary , focus should be on maintaining normal potassium levels - Sinus tachycardia has improved - sr on the monitor HTN/ hypotension - restarted lisinopril and home carvedilol as patient was tachycardic and hypertensive - over the night he had marked hypotension and was borderline today with systolic pressures 90s and 100s. Held lisinopril and cut carvedilol to 25 mg bid. BP low this am but better throughout the day Sepsis of unknown origin - patient was febrile 05/15 evening, hypotensive over the night - femoral line discontinued - blood cultures from the line were positive but likely contaminant as one vial was coag neg staph - procalcitonin was marginally elevated and trended up, c reactive protein and sed rate mildly elevated . - Continue cefepime - patient has not been febrile today, vss Hypothyroid - cont Synthroid Leg pain secondary to IO - continue lidocaine patch - oxycodone prn, IV dilaudid changed to IVmorphine q6h - will cut back dilaudid to every 6 hours as patient is somnolent - right tib/fib xray negative for acute process - US lower extremity negative for clot - pain management consulted - MRI of the leg shows - edema/fluid seen primarily surrounding the tibia and extending into the deep fascial planes and a few of the proximal lower leg muscles as described above. There is also anteromedial subcutaneous edema. These findings are nonspecific fasciitis/myositis and could be due to an infectious or possibly a posttraumatic process. No loculated fluid collections at this time to suggest an abscess. - There is also mild nonspecific patchy edema-like marrow signal seen throughout the majority of the tibia. This can also be seen in the setting of an infectious or reactive process. A bone infarct could also have a similar appearance but is considered less likely. 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 I discussed the case with the resident and agree with the findings and plan as documented in the note. Any exceptions or clarifications are listed here: Still with severe pain in right leg somewhat at rest but mostly with any passive or active movement of the leg. Discussed case with Dr. Anne on phone today who said it would be too early for CRPS to present. Discussed case with Orthopedics PA who will have attending call me. Pt continues to report that he has never had pain like this before in his life and considering that he has had a median sternotomy and renal transplant, this is a significant statement. Remains afebrile. Repeat BCxs no growth, and with Coag neg Staph not lugdenensis from first set from femoral CVC which has since been removed. Vitals reviewed AAOx3 RRR 3/6 LUIS MIGUEL at [facility] no wcr Abd +BS soft NT ND Ext: LUE with AV, some ecchymosis overlying, right leg with lidocaine patch over IO site, +TTP over entire anterior tibia and some in popiliteal fossa and calf, no masses, calf and all soft tissue compartments are soft, mild edema prox anterior tibia with mild erythema, no ecchymosis. 2+ PT and DP pulses on right, FROM of knee and ankle but ROM causes severe pain in the tibia itself, no effusions, no TTP over right foot 22 yo male with ESRD on HD after failed renal transplant for Glomerulonephritis , h/o Type A aortic dissection s/p repair and lengthy ICU stay with trach/ intubation, DVT, HTN, hypothyroidism, here with severe hyperkalemia, hypotension , bradycardia, followed by WCT and sine waves on ECG. Treated with Calcium gluconate, D10/insulin, Bicarb, and emergent dialysis. With persistent hyperkalemia again the next day requiring repeat HD. Today K+ finally normal Fever/Septicemia--> with severe right leg pain, BCxs positive for Coag neg Staph from the previous femoral CVC. ID thinks could be contaminant but I have no other source of his fever at this point unless was from his IO/tibia such as OM? MRI right leg with edema and bone marrow changes, unsure if related to infectious process vs. what would be expected after IO? Discussed case with Ortho Started empiric abx with Cefepime and Vanco, but then dcd Cefepime after BCxs + for Staph and continue Vanco alone -Femoral line already removed so hopefully that was the source PCT elevated further today , Crp and ESR elevated but not high enough to be consistent with osteomyelitis-repeat tomorrow Right leg pain-severe, s/p IO site MRI as above. Pain Management thinks too early to be CRPS and is a dx of exclusion -tib/fib xray negative, Doppler neg for RLE DVT but couldn't visualize veins more proximal due to femoral line -Consult Orthopedics-will come back to see, discussed with Ortho PA on phone, not sure what is causing so much severe pain -repeat Blood cultures no growth to date -change to po dilaudid with IV Dilaudid for breakthrough pain -HD tomorrow after fistulogram Hypotension-resolved--> may be from too high of a dose of Coreg-reduced to 25mg bid which is actually his home dose, continue holding lisinopril -Consult Cardio to see about need for AICD for primary prevention given recurrent h/o severe hyperkalemia -not recommended-appreciate consult Documented By: Roseanne Ross (Roseanne Ross MD)
[2017-05-17] MEDS ORDERED: HYDROmorphone INJ 0.5 MG/0.5 ML SYR IV PRN (18:30)
[2017-05-17] MEDS ORDERED: HYDROmorphone HCL 2 MG TAB PO PRN (18:30)
[2017-05-17] MEDS: GABAPENTIN 300 MG CAP PO SCH (19:34)
[2017-05-17] MEDS: ATORVASTATIN 40 MG TAB PO SCH (19:34)
[2017-05-17] MEDS: HYDROmorphone INJ 0.5 MG/0.5 ML SYR IV PRN ×2 (19:38→23:27)
[2017-05-18] VITALS (27 sets, daily range): BP systolic 107–159; BP diastolic 53–116; PULSE 90–103; TEMP 36.5–36.8; O2SAT 96–98
[2017-05-18] MEDS ORDERED: hydrOXYzine HCL 25 MG TAB PO STA (02:14)
[2017-05-18] MEDS: MoRPHine SULFATE 4 MG/ML 1 ML CARP\\VIAL IV PRN ×5 (02:30→22:15)
[2017-05-18] MEDS: HEPARIN SOD 5000 UNIT/0.5 ML CARP SQ SCH ×3 (05:45→22:00)
[2017-05-18] MEDS: LEVOTHYROXINE 50 MCG TAB PO SCH (05:57)
[2017-05-18] MEDS ORDERED: CLINDAMYCIN 600 MG/54 ML D5W IV SCH (06:00)
[2017-05-18 06:08] LABS: HEMATOCRIT 36.9 % (42-52); HEMOGLOBIN 12.2 g/dL (14.0-18.0); MEAN CELL VOLUME 95.8 fL (80-100); MEAN CORPUSCULAR HEMOGLOBIN 31.7 pg (25-34); MEAN CORPUSCULAR HGB CONC 33.1 g/dl (32-36); MEAN PLATELET VOLUME 10.2 fL (7.4-10.4); PLATELET COUNT 149 K/uL (130-400); RED CELL DISTRIBUTION WIDTH CV 16.1 % (11.5-14.5); RED CELL DISTRIBUTION WIDTH SD 56.2 fL (36.4-46.3)
[2017-05-18 07:01] LABS: CALCIUM 9.4 mg/dl (8.5-10.1); CREATININE 9.13 mg/dl (0.60-1.40); POTASSIUM 4.1 mmol/L (3.5-5.1)
[2017-05-18 07:27] LABS: PHOSPHORUS 8.7 mg/dl (2.5-4.9)
[2017-05-18] MEDS ORDERED: CLINDAMYCIN IV 600 MG in DEXTROSE 5% 50ML 50 ML IV ONE (08:00)
--- NOTE | 2017-05-18 08:01 | Progress Note ---
Progress Note Date of Service May 18, 2017. Progress Note Patient for fistulogram with possible intervention due to high venous pressures. I have discussed the risks options and benefits of the procedure with the patient. The patient understands the risks options and benefits and agrees to the procedure. I have examined the patient, reviewed the History & Physical and in the interval since the performance of the History & Physical I have noted the following changes of clinical significance: No changes noted
--- NOTE | 2017-05-18 08:25 | Hospitalist Progress Note ---
Hospitalist Progress Note Date of Service May 18, 2017. (Norma Arvizu PA-C) Subjective Pt evaluation today including: conversation w/ patient, physical exam, chart review, lab review, review of studies Pain: Left LE pain PO Intake: Fair The patient was seen and examined this morning. Pt just returned from fistulogram procedure. He denies any complaints regarding this procedure except that his fistula feels "mushy". The patient is frustrated with his fistula and reports he is not willing to go through further surgeries regarding this. He notes the left leg where previous IO was inserted is excruciatingly painful. He has not been able to move it in bed without pain. He is able to move his toes, ankles, and knees on command but reports worsening pain. He has not ambulated due to pain and reports even light touch causes pain. With abdominal exam he notes he feels the pain in his leg. He was administered MS 4 mg IV prior to my examination. His appetite is fair and tolerating fluids without difficulty. - makes no urine , has not had a BM since admission as he is not eating much. Additional Comments: Constitutional: No fever, sweats or chills Eyes: No diplopia, no worsening or blurred vision ENT: normal hearing, no trouble swallowing Respiratory: No cough, sputum, dyspnea at rest or on exertion Cardiovascular: No chest pain, tightness or palpitations Abdomen: No pain, nausea, vomiting, diarrhea or constipation Musculoskeletal: No joint pain, + Left leg calf pain and pain surrounding the IO insertion site, no swelling Neurologic: No weakness, numbness/tingling, or balance problems Psychiatric: No anxiety or depression Skin: No rash or itch (Norma Arvizu PA-C) Objective Vital Signs Date Time Temp Pulse Resp B/P (MAP) Pulse Ox O2 Delivery O2 Flow Rate FiO2 05/18/17 07:01 36.7 96 16 107/61 (76) 96 Room Air 05/18/17 04:00 Room Air 05/18/17 03:04 36.7 90 16 109/62 (78) 98 Room Air 05/17/17 23:59 Room Air 05/17/17 23:25 36.4 91 18 105/51 (69) 97 Room Air 05/17/17 20:00 Room Air 05/17/17 19:33 36.7 74 18 125/71 (89) 96 05/17/17 16:07 36.9 96 18 124/74 (91) 95 05/17/17 16:00 Room Air 05/17/17 12:00 Room Air 05/17/17 11:28 36.5 88 20 116/72 (87) 100 Room Air 05/17/17 11:11 102/68 (79) 05/17/17 08:25 85/51 (62) (Norma Arvizu PA-C) Physical Exam Notes: General: awake, alert, no apparent distress, thin Head: Normocephalic, atraumatic ENT: PERRL, EOMI, no pharyngeal exudate, mucous membranes moist Chest: Clear to auscultation, on room air, no adventitious breath sounds Cardiac: Regular rate and rhythm, no murmur, no JVD, normal peripheral pulses, good capillary refill Abdominal: NABS x 4 quadrants, soft, nontender to palpation, no rebound, guarding or tenderness Extremities: LUE AVF + thrill and bruit, no peripheral edema or erythema, LLE without signs of swelling or irritation surrounding the IO site, minimally tender to light touch, left calf tender to palpation. Psych: Depressed mood and affect Neuro: AAO x 3, strength intact bilaterally and related 4/5 in the LLE, 5/5 in the RLE, no motor deficits, speech is clear, no peripheral sensory deficits (Norma Arvizu, MERRY-C) Laboratory Results Last 24 Hours Test 05/18/17 05:43 White Blood Count 6.60 K/uL Red Blood Count 3.85 M/uL Hemoglobin 12.2 g/dL Hematocrit 36.9 % Mean Corpuscular Volume 95.8 fL Mean Corpuscular Hemoglobin 31.7 pg Mean Corpuscular Hemoglobin Concent 33.1 g/dl RDW Standard Deviation 56.2 fL RDW Coefficient of Variation 16.1 % Platelet Count 149 K/uL Mean Platelet Volume 10.2 fL Erythrocyte Sedimentation Rate 59 mm/hr Sodium Level 131 mmol/L Potassium Level 4.1 mmol/L Chloride Level 91 mmol/L Carbon Dioxide Level 26 mmol/L Anion Gap 14.0 mmol/L Blood Urea Nitrogen 47 mg/dl Creatinine 9.13 mg/dl Est Creatinine Clear Calc Drug Dose 11.2 ml/min Estimated GFR () 8.6 Estimated GFR (Non- 7.4 BUN/Creatinine Ratio 5.2 Random Glucose 89 mg/dl Calcium Level 9.4 mg/dl Phosphorus Level 8.7 mg/dl Magnesium Level 2.6 mg/dl C-Reactive Protein 15.20 mg/dl Procalcitonin 1.24 ng/ml Random Vancomycin Level 18.8 mcg/ml (Norma Arvizu, YORDAN) Assessment and Plan 22 y/o M with complex history including membranous glomerulonephropathy - ESRD since age 16, ascending aortic dissection 02/11, HTN, hypothyroid, previous episodes of critical hyperkalemia requiring emergent dialysis. 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 EMS was alerted. On arrival to the pt's house it was reported that he was hypotensive and bradycardic, initially requiring pacing. On arrival to the ER, an EKG displayed wide-complex tachycardia. Initially it was thought that this was VT, however, an iSTAT K came back at 9.0 and the EKG therefore may have represented sine waves. The pt was provided with Calcium gluconate, bicarb, insulin/D50. Nephrology was notified to request emergent dialysis. ESRD/hyperK / Vtach - symptomatic on admission, initially with bradycardia then wide complex tachycardia - likely sine waves. EKG largely normalized following treatment for hyperK. Emergent dialysis given. - K today is 4.1 today - nephrology consulted - they had concern about fistula and ordered an US which showed improved thrombus: Discussion was held with Dr. León, patient to have repeat potassium check through the weekend, their team is okay with initiation of trial of NSAIDs for LLE pain, if potassium stable on Sunday and then likely able to discharge. - Vascular surgery consulted - OR today for fistulogram and followed by Dialysis. 3 stents placed. - Femoral line now removed as was thought was source of infection. - consulted cardiology- Appreciate recs:re ICD placement given that this is his second episode of dysrhythmia due to hyperkalemia - conservative management with K+ control. - Sinus tachycardia has improved - sr on the monitor HTN/ hypotension - restarted lisinopril and home carvedilol 25 mg BID (half dose) - overnight on tele: no acute events. Fever/ Sepsis of unknown origin - patient was febrile 05/15 evening, afebrile overnight - femoral line discontinued - blood cultures from the line were positive but likely contaminant as one vial was coag neg staph - continue on vanc alone - procalcitonin was marginally elevated and trended up, Recheck CRP and ESR today Hypothyroid - cont Synthroid Leg pain secondary to IO - continue lidocaine patch on ankle - Check CK level - normal - Pt with increased somnolence has required decreased narcotics - dilaudid and oxycodone PO d/c'd. Continue IV morphine 4 mg Q4H - Will start a trial of NSAIDs - ok with nephro as above. - right tib/fib xray negative for acute process - US lower extremity 05/15 negative for DVT - pain management consulted - await recs - Dr. Anne consulted - MRI of the leg completed: no concerns for OM at this time although this may potentially have been the source of his fever as BCx are negative so far. Ortho on board - appreciate recs, conservative management for now. DVT proph - heparin subq CODE STATUS: Full code Disposition: From home, lives with mom/step-dad and brother, CM assisting with dc planning, possible DC on Sunday. (Norma Arvizu, YORDAN) Attending Note & Attestation - Pt seen/examined, chart reviewed, care plan d/w MERRY Arvizu. I agree w/ the kennedy components of her progress note. Pt with severe pain RLE despite morphine. Light touch to the leg from the knee down towards the ankle causes severe pain. No knee pain. No dyspnea. No fever. VSS, afebrile gen - he is distressed if his RLE is touched; o/w NAD neck - no JVD heart - RRR lungs - CTA b/l abd - soft, NT ext - RLE - no obvious erythema, abscess, or other abnormality although there appears to be modest swelling of the leg; left leg wnl pulses 2+ b/l feet A/P: 1. recent wide-complex tachycardia 2nd to critical hyperkalemia - resolved 2. coag neg staph bacteria on blood cx - thought to be contaminant 3. RLE pain - results of MRI reviewed - extravasation of fluid from his IO? CK normal making fascitis/myositis unlikely. appreciate ortho/pain management consults. agree with angelique. Nephrology ok with NSAIDs short-term. 4. HTN - resumed meds. 5. ESRD on HD - appreciate nephrology assistance. 6. malfunctioning LUE AV fistula - s/p fistulogram with stent placement by Dr. Sierra today. Appreciate his assistance. 7. DVT proph - heparin BID. until #3 is improved he will continue to remain hospitalized Familia Mancilla MD (Familia Mancilla MD)
--- NOTE | 2017-05-18 08:35 | Pre Sedation Assessment ---
Pre Sedation Assessment General Date of Sedation: May 18, 2017. Vital Signs Past 12 Hours Date Time Temp Pulse Resp B/P (MAP) Pulse Ox O2 Delivery O2 Flow Rate FiO2 05/18/17 07:01 36.7 96 16 107/61 (76) 96 Room Air 05/18/17 04:00 Room Air 05/18/17 03:04 36.7 90 16 109/62 (78) 98 Room Air 05/17/17 23:59 Room Air 05/17/17 23:25 36.4 91 18 105/51 (69) 97 Room Air Review Cardiovascular: regular rate, rhythm Lungs: lungs clear, no respiratory distress Pre-Sedation Airway Assessment Smoking Status: Never Smoker Hx of Sleep Apnea: No Hx of difficult intubation: No Short Thick Neck: No Thyro-mental Distance: > 3 Finger Breadths Oral Cavity: WNL Mallampati Classification: Class I ASA Classification: Class III NPO Status Date of Last Intake of Fluids: May 18, 2017 Time of Last Intake of Fluids: 0000 Date of Last Intake of Solids: May 17, 2017 Time of Last Intake of Solids: 1800 Procedure Planning Contraindications for Sedation: None Current Medications Reviewed: Yes Notes The planned sedation has been discussed with the patient. Informed Consent was obtained. I have identified the patient, determined the appropriateness of sedation and have assessed the patient immediately prior to the procedure. All medicine(s) and interventions are by my order.
[2017-05-18] MEDS: CARVEDILOL 25 MG TAB PO SCH ×2 (09:00→22:17)
[2017-05-18] MEDS ORDERED: MIDAZOLAM HCL 1 MG/ML 2ML VIAL ONE (09:03)
[2017-05-18] MEDS ORDERED: FENTANYL CITRATE INJ 50 MCG/1 ML 2 ML VIAL ONE (09:03)
[2017-05-18] MEDS ORDERED: MIDAZOLAM HCL 1 MG/ML 2ML VIAL IV ONE (09:12)
[2017-05-18] MEDS ORDERED: LIDOCAINE HCL 1% 20 ML VIAL INJ ONE (09:14)
[2017-05-18] MEDS ORDERED: FENTANYL CITRATE INJ 50 MCG/1 ML 2 ML VIAL IV ONE (09:22)
[2017-05-18] MEDS ORDERED: OPTIRAY 300 IV ONE (10:06)
--- NOTE | 2017-05-18 10:07 | [facility] Post Operative Brief Note ---
Immediate Operative Summary Operative Date May 18, 2017. Pre-Operative Diagnosis Malfunctioning Fistula Post-Operative Diagnosis Venous stenosis of fistula Procedure(s) Performed Left Upper Extremity Fistulogram Percutaneous Transluminal Angioplasty Venous Stenting peripheral venous of fistula Moderate Sedation [id number] Surgeon Mariela Quarantine Officer Surgeon(s) Hetal Estimated Blood Loss 5cc Findings Consistent with Post-Op Diagnosis Specimens None Drains None Anesthesia Type IV Sedat Cons RN Only Complication(s) none Disposition Accompanied Pt To Recover: no Disposition:
--- NOTE | 2017-05-18 10:13 | Post Sedation Assessment ---
Post Sedation Assessment General Date of Sedation May 18, 2017. Vital Signs: Vital Signs Past 12 Hours Date Time Temp Pulse Resp B/P (MAP) Pulse Ox O2 Delivery O2 Flow Rate FiO2 05/18/17 10:02 92 14 96/52 95 Room Air 05/18/17 10:00 Oxymask 4 05/18/17 09:55 Oxymask 4 05/18/17 09:50 Oxymask 4 05/18/17 09:45 Oxymask 4 05/18/17 09:40 84 14 90/61 100 Oxymask 4 05/18/17 09:35 Oxymask 4 05/18/17 09:30 Oxymask 4 05/18/17 09:25 Oxymask 2 05/18/17 09:20 Oxymask 2 05/18/17 09:15 Oxymask 2 05/18/17 09:10 90 12 104/62 100 Oxymask 2 05/18/17 08:00 Room Air 05/18/17 07:01 36.7 96 16 107/61 (76) 96 Room Air 05/18/17 04:00 Room Air 05/18/17 03:04 36.7 90 16 109/62 (78) 98 Room Air 05/17/17 23:59 Room Air 05/17/17 23:25 36.4 91 18 105/51 (69) 97 Room Air Post Procedure Recovery Score Activity: (2) Moves 4 extremities * Respiration: (2) Deep breath/cough Circulation: (2) +/-20% PreAnes Value Consciousness: (2) Fully Awake Oxygen Saturation: (2) > 92% On Room Air Post Anesthesia Score: 10 Discharge Sedation Level of Care: Fast Track Phase II Post Sedation Plan On clinical assessment, the patient appears to have tolerated the sedation without complications. Patient is recovering as anticipated. Patient will continue to be monitored by nursing and may be discharged when sedation discharge criteria are met per below protocol. Upon Completions of procedure and additional 15 minutes continue every 5 minute vital signs and the P.A.R. score; then discharge to a Phase I or Fast Track to Phase II per the following guidelines: * Discharge Patient to appropriate Phase II area if PAR is 8 or greater or return to pre- procedure baseline. The post - procedure orders will be as directed. * If PAR score is less than 8 or not return to pre-procedure baseline then patient will follow Phase I monitoring till PAR is reached for Phase II. The Phase I may be done in procedure room or may call to secure a Phase I area. * If naloxone or flumazenil are used for reversal, hold in Phase I for an additional 60 -120 minutes before discharge to Phase II. Please call the Sedation Physician to re-evaluate and complete post-note for discharge to Phase II area. Do NOT discharge from procedure sedation or Phase 1 until post- sedation evaluation note is complete by procedure /sedation MD Sedation Discharge Instructions to be given to the patient at discharge to home.
[2017-05-18] MEDS: SEVELAMER HYDROCH 800 MG TAB PO SCH ×3 (10:31→15:51)
[2017-05-18] MEDS: SERTRALINE HCL 50 MG TAB PO SCH (10:31)
[2017-05-18] MEDS: LIDODERM (LIDOCAINE) PATCH 5% TD SCH (10:31)
[2017-05-18] MEDS: GABAPENTIN 100 MG CAP PO SCH (10:32)
--- NOTE | 2017-05-18 10:41 | DIAGNOSTIC IMAGING REPORT ---
DATE OF PROCEDURE: 05/14/2017 PREOPERATIVE DIAGNOSIS: Malfunctioning left upper extremity arteriovenous fistula. POSTOPERATIVE DIAGNOSIS: Same. PROCEDURE: 1. Fistulogram. 2. Balloon angioplasty of cephalic fistula with 6 x 60 and 10 x 60 balloon. 3. Stenting of proximal stenosis with a 10 x 40 mm bare metal stent. 4. Stenting of distal with 14 x 60 bare metal stent. 5. Stenting of the mid portion of the previous stents with 14 x 30 mm stents as a bridge. SURGEON: Dr. Brian Sierra. ADMISSIONS CONSULTANT: Michelle Fong MD. ANESTHESIA: Local plus conscious sedation. ESTIMATED BLOOD LOSS: 5. FLUIDS: 150. COMPLICATIONS: None apparent. CONDITION: Stable to PACU. INDICATIONS: Mr. Clay is a 22-year-old male, multiple medical comorbidities with end-stage renal disease, on hemodialysis through right upper extremity fistula. He has had difficulty clearing his potassium and was advised the risks and benefits of undergoing a fistulogram. He agreed. PROCEDURE IN DETAIL: The patient was brought into the operative suite. He was prepped and draped in usual fashion. Timeout occurred. Fistula was accessed with a micropuncture needle and a wire was advanced. Fistulogram was obtained showing stenosis of the upper arm in the upper portion of the cephalic fistula. This was just distal to the shoulder. The micropuncture sheath was exchanged for a 6-Thai sheath. A Glidewire was advanced centrally. A 6 x 60 balloon was passed up and inflated. This was undersize, so a 10 x 60 mm balloon was advanced and inflated. Repeat fistulogram was obtained and there was residual stenosis. So a 10 x 40 stent was placed proximally and a 14 x 60 mm stent was placed in the stenosis. There was a small gap between the 14 and the 10 mm stent, so a 14 x 30 mm stent was used to bridge it. This deployed too distally, so another 14 x 30 stent was placed. Post fistulogram showed brisk flow, retrograde fistulogram demonstrated some stenosis of the anastomosis, however, had a brisk thrill. So at this point, the procedure was terminated. Sheaths were removed and pressure was held and hemostasis was obtained. Dr. Brian Sierra present for the entirety of this case.
--- NOTE | 2017-05-18 11:09 | Pharmacy Progress Note ---
Pharmacy Abx Dose Short Note Date of Service May 18, 2017. Assessment & Plan Assessment * 22 year old male initially started on vancomycin IV for fever w/ severe right leg pain * 1 of 2 BLCXs is growing CoN staph not lugdunensis (drawn from [facility]); repeat BLCX's ordered yesterday and no growth to date * Vancomycin continues, cefepime has been stopped * Day # 4 of antimicrobial therapy * Afebrile last 24 hours, no leukocytosis noted * HD has been ordered for today Plan Vancomycin * Received vancomycin 1250mg (20mg/kg) IV x 1 at 1852 on 05/15, this was after receiving HD earlier in the day * Random level = 38.2 05/16 AM * 3 hr HD session on 05/16 * Random level = 22.9 05/17 AM * No HD performed 05/17 * Random level = 18.8 05/18 AM * Plan is to give 750mg (~12mg/kg) IV x 1 after today's HD session * Will recheck random level w/ AM labs tomorrow to guide redosing Pharmacy will continue to follow and will adjust dose/frequency as necessary. Thank you.
--- NOTE | 2017-05-18 11:41 | Nephrology Progress Note ---
Nephrology Progress Note Date of Service May 18, 2017. Chief Complaint ESRD requiring HD Subjective Mr. Clay was seen & examined in the ICU this morning. He completed his fistulogram this morning. He was found to have a long area of venous narrowing requiring stenting x 3. Mr. Clay denies arm or hand discomfort. He voices no medical concerns Review of Systems Constitutional: No fever Cardiovascular: No chest pain Respiratory: No dyspnea at rest Abdomen: No pain, No nausea, No vomiting Extremities: No leg edema A complete review of systems was performed. Pertinent positives are noted above. All other systems are negative. Vital Signs Last 8 Hrs Date Time Temp Pulse Resp B/P (MAP) Pulse Ox O2 Delivery O2 Flow Rate FiO2 05/18/17 10:12 94 16 90/63 96 Room Air 05/18/17 10:07 94 15 93/54 100 Room Air 05/18/17 10:02 92 14 96/52 95 Room Air 05/18/17 10:00 Oxymask 4 05/18/17 09:55 Oxymask 4 05/18/17 09:50 Oxymask 4 05/18/17 09:45 Oxymask 4 05/18/17 09:40 84 14 90/61 100 Oxymask 4 05/18/17 09:35 Oxymask 4 05/18/17 09:30 Oxymask 4 05/18/17 09:25 Oxymask 2 05/18/17 09:20 Oxymask 2 05/18/17 09:15 Oxymask 2 05/18/17 09:10 90 12 104/62 100 Oxymask 2 05/18/17 08:00 Room Air 05/18/17 07:01 36.7 96 16 107/61 (76) 96 Room Air 05/18/17 04:00 Room Air Last Recorded Weight Weight (Kilograms): 61.600 Physical Exam General Appearance: no apparent distress Head: normocephalic, atraumatic Eyes: PERRL, EOMI Neck: no adenopathy Respiratory/Chest: lungs clear, no respiratory distress Cardiovascular: regular rate, rhythm Abdomen/GI: normal bowel sounds, non tender, soft Extremities/Musculoskelatal: no calf tenderness, no pedal edema Neurologic/Psych: alert, oriented x 3 Family History Cancer Hypertension Negative for CKD/ESRD Social History Smoking Status: Never smoker Drug Use: none Marital Status: single 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 Lives with mother Laboratory Results Past 24 Hours 05/18/17 05:43 05/18/17 05:43 Test 05/18/17 05:43 Red Blood Count 3.85 M/uL (4.7-6.1) Mean Corpuscular Volume 95.8 fL (80-100) Mean Corpuscular Hemoglobin 31.7 pg (25-34) Mean Corpuscular Hemoglobin Concent 33.1 g/dl (32-36) RDW Standard Deviation 56.2 fL (36.4-46.3) RDW Coefficient of Variation 16.1 % (11.5-14.5) Mean Platelet Volume 10.2 fL (7.4-10.4) Erythrocyte Sedimentation Rate 59 mm/hr (0-14) Anion Gap 14.0 mmol/L (3-11) Est Creatinine Clear Calc Drug Dose 11.2 ml/min Estimated GFR () 8.6 Estimated GFR (Non- 7.4 BUN/Creatinine Ratio 5.2 (10-20) Calcium Level 9.4 mg/dl (8.5-10.1) Phosphorus Level 8.7 mg/dl (2.5-4.9) Magnesium Level 2.6 mg/dl (1.8-2.4) C-Reactive Protein 15.20 mg/dl (0-0.29) Procalcitonin 1.24 ng/ml (0-0.5) Random Vancomycin Level 18.8 mcg/ml Allergies Coded Allergies: Penicillins (Unverified Allergy, Severe, FACE SWELLS, 05/14/17) Amoxicillin (Verified Allergy, Unknown, ?, 05/14/17) Medications Current Inpatient Medications Medications (Trade) Dose Ordered Sig/Moises Route Start Time Stop Time Status Last Admin Dose Admin Lorazepam (Ativan Inj) 0.5 mg Q4H PRN IV 05/14/17 00:30 06/13/17 00:29 05/15/17 15:34 0.5 MG Atorvastatin Calcium (Lipitor Tab) 40 mg QPM PO 05/14/17 21:00 06/13/17 20:59 05/17/17 19:34 40 MG Gabapentin (Neurontin Cap) 200 mg QAM PO 05/14/17 09:00 06/13/17 08:59 05/18/17 10:32 200 MG Gabapentin (Neurontin Cap) 300 mg HS PO 05/14/17 21:00 06/13/17 20:59 05/17/17 19:34 300 MG Levothyroxine Sodium (Synthroid Tab) 50 mcg DAILYBB PO 05/14/17 06:00 06/13/17 05:59 05/18/17 05:57 50 MCG Sertraline HCl (Zoloft Tab) 50 mg DAILY PO 05/14/17 09:00 06/13/17 08:59 05/18/17 10:31 50 MG Miscellaneous Information (Order Awaiting Action) 1 ea QS N/A 05/14/17 08:00 06/13/17 07:59 Sevelamer HCl (Renagel Tab) 1,600 mg TIDM PO 05/14/17 07:15 06/13/17 07:59 05/18/17 10:31 1,600 MG Heparin Sodium (Porcine) (Heparin Sq 5000 Unit/0.5ml) 5,000 unit Q8 SQ 05/14/17 09:00 06/13/17 08:59 05/17/17 22:27 5,000 UNIT Lidocaine (Lidoderm Patch 5%) 1 patch QAM TD 05/15/17 09:00 06/14/17 08:59 05/18/17 10:31 1 PATCH Miscellaneous (Remove Lidoderm Patch) 1 ea DAILY@21 N/A 05/14/17 21:00 06/13/17 20:59 05/17/17 19:35 1 EA Lisinopril (Zestril Tab) 40 mg QAM PO 05/15/17 09:00 06/14/17 08:59 Future Hold 05/15/17 14:47 40 MG Non-Formulary Medication (Non-Formulary Patient'S Own Med) 1 ea DAILY PRN PO 05/14/17 21:45 06/13/17 21:44 05/15/17 21:59 1 EA Acetaminophen (Tylenol Tab) 650 mg Q6H PRN PO 05/15/17 17:15 06/14/17 17:14 05/17/17 05:38 650 MG Miscellaneous Information (Consult) 1 ea UD PRN N/A 05/15/17 17:15 06/14/17 17:14 Carvedilol (Coreg Tab) 25 mg BID PO 05/16/17 09:00 06/15/17 08:59 05/17/17 19:34 25 MG Clindamycin Phosphate 54 ml @ 100 mls/hr PREOP IV 05/18/17 06:00 05/18/17 18:00 05/18/17 08:58 100 MLS/HR Heparin Sodium (Porcine) (No Heparin In Dialysis) 1 ea 0600 N/A 05/18/17 06:00 05/18/17 18:00 Morphine Sulfate (MoRPHine SULFATE INJ) 4 mg Q4H PRN IV 05/18/17 02:30 06/01/17 02:29 05/18/17 10:32 4 MG Vancomycin HCl 750 mg/Sodium Chloride 265 ml @ 125 mls/hr AFTER DIALYSIS COMPLETE ONCE IV 05/18/17 13:00 05/18/17 15:07 Impression (1) Hyperkalemia (2) ESRD on hemodialysis AVF with small area of surrounding ecchymosis suggestive of recent infiltration. 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 Hyperkalemia may be related to recirculation during HD. Fistulogram 05/18/[address] Sierra revealed a long segment of stenosis involving the venous outflow. Patient required stenting x 3. Recommendations -- Potassium rapidly rises in between HD treatments. Patient is on low K diet. Review of HD treatment sheets reveals venous pressure 210 - 240 mmHG at Qb 400 cc/min. Fistulogram 05/18/[address] Sierra revealed a long segment of stenosis involving the venous outflow. Patient required stenting x 3. -- Hemodialysis today. Orders placed in EMR and HD RN notified -- Monitor PRP each morning -- Recommend checking serum potassium Sunday and Sunday. If potassium is within acceptable limits Sunday morning could potentially send home and resume outpatient HD Sunday in [place]
--- NOTE | 2017-05-18 11:46 | Orthopedic Progress Note ---
Orthopedic Progress Note Date of Service May 18, 2017. Subjective Additional Notes: Pt awake, alert. Continues with pain in the RLE. Feels it's not getting any better. Dr Blackburn present and examining patient as well. Objective All compartments are soft at this time. Pain with palpation but less so posteriorly. Confirms that pain is worse just above the ankle. Some pain over the anterior compartment traveling across the tibia going distally and laterally. Able to do rom of the ankle. Knee rom causes more pain in the LE. Knee without swelling or overt warmth. Denies numbness/tingling in the foot and toes. Date Time Temp Pulse Resp B/P (MAP) Pulse Ox O2 Delivery O2 Flow Rate FiO2 05/18/17 10:12 94 16 90/63 96 Room Air 05/18/17 10:07 94 15 93/54 100 Room Air 05/18/17 10:02 92 14 96/52 95 Room Air 05/18/17 10:00 Oxymask 4 05/18/17 09:55 Oxymask 4 05/18/17 09:50 Oxymask 4 05/18/17 09:45 Oxymask 4 05/18/17 09:40 84 14 90/61 100 Oxymask 4 05/18/17 09:35 Oxymask 4 05/18/17 09:30 Oxymask 4 05/18/17 09:25 Oxymask 2 05/18/17 09:20 Oxymask 2 05/18/17 09:15 Oxymask 2 05/18/17 09:10 90 12 104/62 100 Oxymask 2 05/18/17 08:00 Room Air 05/18/17 07:01 36.7 96 16 107/61 (76) 96 Room Air 05/18/17 04:00 Room Air 05/18/17 03:04 36.7 90 16 109/62 (78) 98 Room Air 05/17/17 23:59 Room Air 05/17/17 23:25 36.4 91 18 105/51 (69) 97 Room Air 05/17/17 20:00 Room Air 05/17/17 19:33 36.7 74 18 125/71 (89) 96 05/17/17 16:07 36.9 96 18 124/74 (91) 95 05/17/17 16:00 Room Air 05/17/17 12:00 Room Air Laboratory Results 24 Hours: Test 05/18/17 05:43 Hematocrit 36.9 % Hemoglobin 12.2 g/dL Assessment & Plan Assessment: Pain RLE with recent IO IV access that was needed prior to admit. Continue Ice/elevation. h/o compartment syndrome on the LLE in the past. Dr Blackburn recommending PT/OT as able Inhouse Planning Pain Management: Morphine
[2017-05-18] MEDS ORDERED: VANCOMYCIN IV 750 MG in SODIUM CHLORIDE 0.9% 250ML 250 ML IV ONE (13:00)
[2017-05-18] MEDS: IBUPROFEN 600 MG TAB PO PRN (17:27)
[2017-05-18] MEDS: ACETAMINOPHEN 325 MG TAB PO PRN (17:27)
--- NOTE | 2017-05-18 18:14 | Infectious Disease Progress Nt ---
Progress Note Date of Service May 18, 2017. Subjective Pt evaluation today including: conversation w/ patient, physical exam, chart review, lab review, review of studies, conversation w/ it consultant, review of inpatient medication list Continues to complain of pain in right leg. No fever. Now status post fistulogram and stenting of stenosis. Follow-up blood cultures are negative. Ortho follow-up noted. All Other Systems: Reviewed and Negative Medications Current Inpatient Medications Medications (Trade) Dose Ordered Sig/Moises Route Start Time Stop Time Status Last Admin Dose Admin Lorazepam (Ativan Inj) 0.5 mg Q4H PRN IV 05/14/17 00:30 06/13/17 00:29 05/15/17 15:34 0.5 MG Atorvastatin Calcium (Lipitor Tab) 40 mg QPM PO 05/14/17 21:00 06/13/17 20:59 05/17/17 19:34 40 MG Gabapentin (Neurontin Cap) 200 mg QAM PO 05/14/17 09:00 06/13/17 08:59 05/18/17 10:32 200 MG Gabapentin (Neurontin Cap) 300 mg HS PO 05/14/17 21:00 06/13/17 20:59 05/17/17 19:34 300 MG Levothyroxine Sodium (Synthroid Tab) 50 mcg DAILYBB PO 05/14/17 06:00 06/13/17 05:59 05/18/17 05:57 50 MCG Sertraline HCl (Zoloft Tab) 50 mg DAILY PO 05/14/17 09:00 06/13/17 08:59 05/18/17 10:31 50 MG Miscellaneous Information (Order Awaiting Action) 1 ea QS N/A 05/14/17 08:00 06/13/17 07:59 Sevelamer HCl (Renagel Tab) 1,600 mg TIDM PO 05/14/17 07:15 06/13/17 07:59 05/18/17 15:51 1,600 MG Heparin Sodium (Porcine) (Heparin Sq 5000 Unit/0.5ml) 5,000 unit Q8 SQ 05/14/17 09:00 06/13/17 08:59 05/18/17 12:52 5,000 UNIT Lidocaine (Lidoderm Patch 5%) 1 patch QAM TD 05/15/17 09:00 06/14/17 08:59 05/18/17 10:31 1 PATCH Miscellaneous (Remove Lidoderm Patch) 1 ea DAILY@21 N/A 05/14/17 21:00 06/13/17 20:59 05/17/17 19:35 1 EA Lisinopril (Zestril Tab) 40 mg QAM PO 05/15/17 09:00 06/14/17 08:59 Future Hold 05/15/17 14:47 40 MG Non-Formulary Medication (Non-Formulary Patient'S Own Med) 1 ea DAILY PRN PO 05/14/17 21:45 06/13/17 21:44 05/15/17 21:59 1 EA Acetaminophen (Tylenol Tab) 650 mg Q6H PRN PO 05/15/17 17:15 06/14/17 17:14 05/18/17 17:27 650 MG Miscellaneous Information (Consult) 1 ea UD PRN N/A 05/15/17 17:15 06/14/17 17:14 Carvedilol (Coreg Tab) 25 mg BID PO 05/16/17 09:00 06/15/17 08:59 05/17/17 19:34 25 MG Morphine Sulfate (MoRPHine SULFATE INJ) 4 mg Q4H PRN IV 05/18/17 02:30 06/01/17 02:29 05/18/17 14:37 4 MG Ibuprofen (Motrin Tab) 600 mg TID PRN PO 05/18/17 15:00 06/17/17 14:59 05/18/17 17:27 600 MG Objective Vital Signs Date Time Temp Pulse Resp B/P (MAP) Pulse Ox O2 Delivery O2 Flow Rate FiO2 05/18/17 17:20 36.5 97 158/91 (113) 05/18/17 16:00 Room Air 05/18/17 15:35 36.5 96 16 111/67 (82) 97 Room Air 05/18/17 12:15 36.7 103 20 110/68 (82) 96 Room Air 05/18/17 12:00 Room Air 05/18/17 11:45 36.7 101 16 107/66 (80) 96 Room Air 05/18/17 11:15 36.7 97 22 114/70 (85) 96 Room Air 05/18/17 11:00 36.7 97 11 111/73 (86) 96 Room Air 05/18/17 10:45 36.7 97 14 110/70 (83) 96 Room Air 05/18/17 10:30 36.7 96 21 113/75 (88) 96 Room Air 05/18/17 10:12 94 16 90/63 96 Room Air 05/18/17 10:07 94 15 93/54 100 Room Air 05/18/17 10:02 92 14 96/52 95 Room Air 05/18/17 10:00 Oxymask 4 05/18/17 09:55 Oxymask 4 05/18/17 09:50 Oxymask 4 05/18/17 09:45 Oxymask 4 05/18/17 09:40 84 14 90/61 100 Oxymask 4 05/18/17 09:35 Oxymask 4 05/18/17 09:30 Oxymask 4 05/18/17 09:25 Oxymask 2 05/18/17 09:20 Oxymask 2 05/18/17 09:15 Oxymask 2 05/18/17 09:10 90 12 104/62 100 Oxymask 2 05/18/17 08:00 Room Air 05/18/17 07:01 36.7 96 16 107/61 (76) 96 Room Air 05/18/17 04:00 Room Air 05/18/17 03:04 36.7 90 16 109/62 (78) 98 Room Air 05/17/17 23:59 Room Air 05/17/17 23:25 36.4 91 18 105/51 (69) 97 Room Air 05/17/17 20:00 Room Air 05/17/17 19:33 36.7 74 18 125/71 (89) 96 Physical Exam General Appearance: WD/WN, no apparent distress Eyes: normal inspection, EOMI, sclerae normal ENT: normal ENT inspection, hearing grossly normal, pharynx normal Neck: supple, no adenopathy, thyroid normal, trachea midline Respiratory/Chest: chest non-tender, lungs clear, normal breath sounds, no respiratory distress Cardiovascular: regular rate, rhythm, no gallop, no murmur Abdomen: normal bowel sounds, non tender, soft, no organomegaly Extremities: no calf tenderness, normal capillary refill Neurologic/Psychiatric: alert, oriented x 3 Skin: normal color, warm/dry, no rash Lymphatic: no adenopathy Laboratory Results RUN DATE: 05/18/17 [facility] PAGE 1 RUN TIME: 0659 Specimen Inquiry PATIENT: ENRICO PEREZ LOC: Brian U # : [id number] AGE/SX: / ROOM: [facility] REG : 05/14/[address]: Roseanne Ross MD : 1995 BED: 1 DIS : STATUS: ADM IN TLOC: SPEC #: [id number] GAY: 05/16/17 STATUS: RES REQ #: [id number] RECD: 05/16/[address]: Roseanne Ross MD SOURCE: BLOOD ENTR: 05/16/17-1634 [facility] DR: Isaac García MD [facility]: Lebron Chu D.O. Donelan, Pauline Rivera Jennifer L., Alfredito Hardin M.D. Nydegger, Charles C M.D. Shippert, Brian W. , Sourav Urbina M.D. Simoni, Eugene J., M.D. ORDERED: BLOOD CULTURE Procedure Result Verified Site BLD CULT Preliminary 05/18/17-59 NO GROWTH TO DATE. Last 24 Hours Test 05/18/17 05:43 White Blood Count 6.60 K/uL Red Blood Count 3.85 M/uL Hemoglobin 12.2 g/dL Hematocrit 36.9 % Mean Corpuscular Volume 95.8 fL Mean Corpuscular Hemoglobin 31.7 pg Mean Corpuscular Hemoglobin Concent 33.1 g/dl RDW Standard Deviation 56.2 fL RDW Coefficient of Variation 16.1 % Platelet Count 149 K/uL Mean Platelet Volume 10.2 fL Erythrocyte Sedimentation Rate 59 mm/hr Sodium Level 131 mmol/L Potassium Level 4.1 mmol/L Chloride Level 91 mmol/L Carbon Dioxide Level 26 mmol/L Anion Gap 14.0 mmol/L Blood Urea Nitrogen 47 mg/dl Creatinine 9.13 mg/dl Est Creatinine Clear Calc Drug Dose 11.2 ml/min Estimated GFR () 8.6 Estimated GFR (Non- 7.4 BUN/Creatinine Ratio 5.2 Random Glucose 89 mg/dl Calcium Level 9.4 mg/dl Phosphorus Level 8.7 mg/dl Magnesium Level 2.6 mg/dl Total Creatine Kinase 41 U/L C-Reactive Protein 15.20 mg/dl Procalcitonin 1.24 ng/ml Random Vancomycin Level 18.8 mcg/ml Assessment and Plan (1) Hypotension (2) Hyperglycemia (3) Wide-complex tachycardia (4) Altered mental status (5) Hyperkalemia (6) ESRD on hemodialysis 22-year-old male with end-stage renal disease on dialysis admitted hyperkalemia with hypertension and arrhythmia, with transient fever and positive blood culture, 1 bottle, positive for coagulase negative Staph. Now status post fistulogram and stenting of malfunctioning dialysis access. Follow-up blood cultures remain negative, suggesting that original blood culture represented contaminant. No obvious evidence of leg infection. Would consider following patient off antibiotics. Will discuss with all involved. Will follow.
[2017-05-18] MEDS ORDERED: NURSING VERBAL MED ORDER ONE (19:00)
[2017-05-18] MEDS ORDERED: MoRPHine SULFATE 2 MG/ML CARP ONE (22:13)
[2017-05-18] MEDS: GABAPENTIN 300 MG CAP PO SCH (22:16)
[2017-05-18] MEDS: ATORVASTATIN 40 MG TAB PO SCH (22:16)
[2017-05-19] VITALS (7 sets, daily range): BP systolic 94–167; BP diastolic 58–96; PULSE 78–114; TEMP 36.3–37.8; O2SAT 96–100
[2017-05-19] MEDS: ACETAMINOPHEN 325 MG TAB PO PRN (04:34)
[2017-05-19] MEDS: IBUPROFEN 600 MG TAB PO PRN (04:34)
[2017-05-19] MEDS: MoRPHine SULFATE 2 MG/ML CARP IV PRN ×2 (05:03→12:27)
[2017-05-19] MEDS: LEVOTHYROXINE 50 MCG TAB PO SCH (05:36)
[2017-05-19] MEDS: HEPARIN SOD 5000 UNIT/0.5 ML CARP SQ SCH ×3 (05:36→20:22)
[2017-05-19 06:03] LABS: BASO % 0.5 %; BASO ABS # 0.02 K/uL (0-0.2); EOS ABS # 0.25 K/uL (0-0.5); HEMATOCRIT 31.7 % (42-52); HEMOGLOBIN 10.5 g/dL (14.0-18.0); IG# 0.01 K/uL (0.00-0.02); LYMPH % 17.8 %; LYMPH ABS # 0.74 K/uL (1.2-3.4); MEAN CELL VOLUME 95.8 fL (80-100); MEAN CORPUSCULAR HEMOGLOBIN 31.7 pg (25-34); MEAN CORPUSCULAR HGB CONC 33.1 g/dl (32-36); MEAN PLATELET VOLUME 9.1 fL (7.4-10.4); MONO % 12.8 %; MONO ABS # 0.53 K/uL (0.11-0.59); NEUT % 62.7 %; PLATELET COUNT 122 K/uL (130-400); RED CELL DISTRIBUTION WIDTH CV 16.4 % (11.5-14.5); RED CELL DISTRIBUTION WIDTH SD 57.3 fL (36.4-46.3); WHITE BLOOD COUNT 4.15 K/uL (4.8-10.8)
[2017-05-19 06:47] LABS: CALCIUM 8.5 mg/dl (8.5-10.1); CREATININE 4.9 mg/dl (0.60-1.40); PHOSPHORUS 5.2 mg/dl (2.5-4.9); POTASSIUM 3.8 mmol/L (3.5-5.1)
[2017-05-19] MEDS: CARVEDILOL 25 MG TAB PO SCH ×2 (08:15→20:22)
[2017-05-19] MEDS: SERTRALINE HCL 50 MG TAB PO SCH (08:15)
[2017-05-19] MEDS: GABAPENTIN 100 MG CAP PO SCH (08:15)
[2017-05-19] MEDS: SEVELAMER HYDROCH 800 MG TAB PO SCH ×3 (08:16→16:20)
[2017-05-19] MEDS: LIDODERM (LIDOCAINE) PATCH 5% TD SCH (08:16)
[2017-05-19] MEDS: POLYETHYLENE (MIRALAX) 17 GM PACK PO SCH ×2 (08:18→20:21)
[2017-05-19] MEDS: SENNA 8.6 MG TAB PO SCH (08:19)
[2017-05-19] MEDS ORDERED: VANCOMYCIN IV 1,000 MG in SODIUM CHLORIDE 0.9% 250ML 250 ML IV STA (08:42)
[2017-05-19] MEDS ORDERED: VANCOMYCIN CONSULT ACTIVE PRN (08:45)
--- NOTE | 2017-05-19 10:06 | Hospitalist Progress Note ---
Hospitalist Progress Note Date of Service May 19, 2017. (Sandra Riddle .RAMIRO) Subjective Pt evaluation today including: conversation w/ patient, physical exam, chart review, lab review, review of studies, review of inpatient medication list Mr. Clay is very drowsy as I examine him. He continues to complain of right leg pain and is requiring frequent morphine administration. He is sleeping with his left leg laying on his right leg, I am able to perform light palpation without causing too much reaction from the patient. He otherwise has no complaints. ROS Constitutional: no chills, aches, sweats or fever Respiratory: no sob,cough, sputum, or wheezing Cardiac: no chest pain, palpitations, edema, orthopnea or lightheadedness GI: no abdominal pain, nausea, vomiting, diarrhea or constipation : no dysuria or hesitancy Extremities: see HPI Skin: no rash All other systems reviewed and negative (Sandra Riddle CRNP) Medications Medications Administered Medications (Trade) Dose Ordered Sig/Moises Route Start Time Stop Time Status Last Admin Dose Admin Lidocaine HCl (Lidocaine 2% 20MG/Ml Syringe) 100 mg STK-MED ONCE IV 05/13/17 23:22 05/13/17 23:23 DC 05/13/17 23:22 100 MG Albuterol Sulfate (Ventolin 0.5% 2.5MG/0.5ML Neb) 7.5 mg STK-MED ONCE INH 05/13/17 23:28 05/13/17 23:29 DC 05/13/17 23:47 7.5 MG Albuterol Sulfate (Ventolin 0.083% 2.5MG/3ML Neb) 2.5 mg STK-MED ONCE INH 05/13/17 23:28 05/13/17 23:29 DC 05/13/17 23:47 2.5 MG Insulin Human Regular (novoLIN-R U-100 PER UNIT) 10 units NOW STAT IV 05/13/17 23:38 05/13/17 23:42 DC 05/13/17 23:45 10 UNITS Dextrose (Dextrose 50% 50ML Syringe) 50 ml NOW STAT IV 05/13/17 23:38 05/13/17 23:42 DC 05/13/17 23:45 50 ML Fentanyl Citrate (Fentanyl Inj) 50 mcg NOW STAT IV 05/14/17 00:25 05/14/17 00:27 DC 05/14/17 00:33 50 MCG Lorazepam (Ativan Inj) 0.5 mg Q4H PRN IV 05/14/17 00:30 06/13/17 00:29 05/15/17 15:34 0.5 MG Heparin Sodium (Porcine) (No Heparin In Dialysis) 1 ea TODAY@0100 N/A 05/14/17 01:00 05/14/17 23:59 DC 05/14/17 12:09 1 EA Diphenhydramine HCl (Benadryl Inj) 50 mg STK-MED ONCE .ROUTE 05/14/17 01:17 05/14/17 01:18 DC 05/14/17 03:02 50 MG Atorvastatin Calcium (Lipitor Tab) 40 mg QPM PO 05/14/17 21:00 06/13/17 20:59 05/18/17 22:16 40 MG Carvedilol (Coreg Tab) 50 mg BID PO 05/14/17 09:00 05/16/17 15:54 DC 05/15/17 20:01 50 MG Gabapentin (Neurontin Cap) 200 mg QAM PO 05/14/17 09:00 06/13/17 08:59 05/19/17 08:15 200 MG Gabapentin (Neurontin Cap) 300 mg HS PO 05/14/17 21:00 06/13/17 20:59 05/18/17 22:16 300 MG Levothyroxine Sodium (Synthroid Tab) 50 mcg DAILYBB PO 05/14/17 06:00 06/13/17 05:59 05/19/17 05:36 50 MCG Sertraline HCl (Zoloft Tab) 50 mg DAILY PO 05/14/17 09:00 06/13/17 08:59 05/19/17 08:15 50 MG Sevelamer HCl (Renagel Tab) 1,600 mg TIDM PO 05/14/17 07:15 06/13/17 07:59 05/19/17 08:16 1,600 MG Heparin Sodium (Porcine) (Heparin Sq 5000 Unit/0.5ml) 5,000 unit Q8 SQ 05/14/17 09:00 06/13/17 08:59 05/18/17 12:52 5,000 UNIT Hydromorphone HCl (Dilaudid Inj) 0.5 mg STK-MED ONCE .ROUTE 05/14/17 06:51 05/14/17 06:52 DC 05/14/17 06:54 0.25 MG Perflutren Lipid Microsphere (Definity) 2 ml ONE ONCE IV 05/14/17 10:24 05/14/17 10:25 DC 05/14/17 10:25 2 ML Lidocaine (Lidoderm Patch 5%) 1 patch QAM TD 05/15/17 09:00 06/14/17 08:59 05/19/17 08:16 1 PATCH Miscellaneous (Remove Lidoderm Patch) 1 ea DAILY@21 N/A 05/14/17 21:00 06/13/17 20:59 05/18/17 21:00 1 EA Lidocaine (Lidoderm Patch 5%) 1 patch ONE ONCE TD 05/14/17 12:00 05/14/17 12:01 DC 05/14/17 11:57 1 PATCH Hydromorphone HCl (Dilaudid Inj) 0.5 mg ONE ONCE IV 05/14/17 13:36 05/14/17 13:37 DC 05/14/17 13:42 0.5 MG Heparin Sodium (Porcine) (Heparin Iv Bolus) 2,000 unit TODAY IV 05/15/17 08:00 05/15/17 08:01 DC 05/15/17 10:30 2,000 UNIT Heparin Sodium (Porcine) (Heparin Iv Bolus) 500 unit Q1H IV 05/15/17 09:00 05/15/17 10:01 DC 05/15/17 12:30 500 UNIT Lisinopril (Zestril Tab) 40 mg QAM PO 05/15/17 09:00 06/14/17 08:59 Future Hold 05/15/17 14:47 40 MG Oxycodone HCl (Roxicodone Immediate Rel Tab) 5 mg Q4H PRN PO 05/14/17 16:30 05/17/17 18:28 DC 05/17/17 15:09 5 MG Non-Formulary Medication (Non-Formulary Patient'S Own Med) 1 ea DAILY PRN PO 05/14/17 21:45 06/13/17 21:44 05/15/17 21:59 1 EA Morphine Sulfate (MoRPHine SULFATE INJ) 4 mg Q4H PRN IV 05/15/17 01:15 05/15/17 15:52 DC 05/15/17 11:41 4 MG Morphine Sulfate (MoRPHine SULFATE INJ) 4 mg STK-MED ONCE .ROUTE 05/15/17 01:11 05/15/17 01:12 DC 05/15/17 01:14 4 MG Hydromorphone HCl (Dilaudid Inj) 0.5 mg STK-MED ONCE .ROUTE 05/15/17 08:57 05/15/17 08:58 DC 05/15/17 08:57 0.5 MG Diphenhydramine HCl (Benadryl Inj) 25 mg NOW STAT IV 05/15/17 09:47 05/15/17 10:16 DC 05/15/17 10:45 25 MG Hydromorphone HCl (Dilaudid Inj) 0.5 mg Q4H PRN IV 05/15/17 15:45 05/16/17 02:58 DC 05/15/17 20:06 0.5 MG Acetaminophen (Tylenol Tab) 650 mg Q6H PRN PO 05/15/17 17:15 06/14/17 17:14 05/19/17 04:34 650 MG Vancomycin HCl 1250 mg/Sodium Chloride 275 ml @ 125 mls/hr NOW ONCE IV 05/15/17 17:45 05/15/17 19:56 DC 05/15/17 18:52 125 MLS/HR Cefepime HCl 1000 mg/Syringe 11 ml @ 5.5 mls/min TODAY@1800 ONCE IV 05/15/17 18:00 05/15/17 18:01 DC 05/15/17 18:52 5.5 MLS/MIN Sodium Chloride 500 ml @ 125 mls/hr Q4H IV 05/16/17 00:30 05/16/17 04:29 DC 05/16/17 00:55 125 MLS/HR Morphine Sulfate (MoRPHine SULFATE INJ) 4 mg Q6H PRN IV 05/16/17 03:00 05/16/17 15:54 DC 05/16/17 15:40 4 MG Lidocaine (Lidoderm Patch 5%) 1 patch NOW ONCE TD 05/16/17 03:45 05/16/17 03:50 DC 05/16/17 05:03 1 PATCH Miscellaneous (Remove Lidoderm Patch) 1 ea TODAY@1600 N/A 05/16/17 16:00 05/16/17 16:01 DC 05/16/17 16:01 1 EA Carvedilol (Coreg Tab) 25 mg BID PO 05/16/17 09:00 06/15/17 08:59 05/19/17 08:15 25 MG Morphine Sulfate (MoRPHine SULFATE INJ) 2 mg Q6H PRN IV 05/16/17 16:00 05/17/17 18:28 DC 05/17/17 17:03 2 MG Clindamycin Phosphate 54 ml @ 100 mls/hr PREOP IV 05/18/17 06:00 05/18/17 18:00 DC 05/18/17 08:58 100 MLS/HR Hydromorphone HCl (Dilaudid Tab) 2 mg Q3H PRN PO 05/17/17 18:30 05/18/17 02:16 DC 05/17/17 22:29 2 MG Hydromorphone HCl (Dilaudid Inj) 0.5 mg Q2H PRN IV 05/17/17 18:45 05/18/17 02:16 DC 05/17/17 23:27 0.5 MG Hydroxyzine HCl (Vistaril Tab) 50 mg NOW STAT PO 05/18/17 02:14 05/18/17 02:17 DC 05/18/17 02:33 50 MG Morphine Sulfate (MoRPHine SULFATE INJ) 4 mg Q4H PRN IV 05/18/17 02:30 06/01/17 02:29 05/18/17 22:15 2 MG Vancomycin HCl 750 mg/Sodium Chloride 265 ml @ 125 mls/hr AFTER DIALYSIS COMPLETE ONCE IV 05/18/17 13:00 05/18/17 15:07 DC 05/18/17 12:50 125 MLS/HR Lidocaine HCl (Xylocaine 1% Inj (Local)) 2 ml ONE ONCE INJ 05/18/17 09:14 05/18/17 09:36 DC 05/18/17 09:14 2 ML Midazolam HCl (Versed Inj) 1 mg ONE ONCE IV 05/18/17 09:12 05/18/17 09:36 DC 05/18/17 09:12 1 MG Fentanyl Citrate (Fentanyl Inj) 50 mcg ONE ONCE IV 05/18/17 09:22 05/18/17 09:36 DC 05/18/17 09:22 50 MCG Heparin Sodium/ Sodium Chloride (Heparin Sod/Ns 2 Units/Ml) 120 unit ONE ONCE IV 05/18/17 10:06 05/18/17 10:09 DC 05/18/17 10:06 120 UNIT Ioversol (Optiray 300) 45 ml ONE ONCE IV 05/18/17 10:06 05/18/17 10:09 DC 05/18/17 10:06 45 ML Ibuprofen (Motrin Tab) 600 mg TID PRN PO 05/18/17 15:00 06/17/17 14:59 05/19/17 04:34 600 MG Diphenhydramine HCl (Benadryl Syrup) 25 mg ONE ONCE PO 05/18/17 19:15 05/18/17 19:16 DC 05/18/17 19:32 25 MG Morphine Sulfate (MoRPHine SULFATE INJ) 2 mg Q4H PRN IV 05/18/17 22:30 06/01/17 22:29 05/19/17 05:03 2 MG Senna (Senokot Tab) 17.2 mg QAM PO 05/19/17 09:00 06/18/17 08:59 05/19/17 08:19 17.2 MG (Sandra Riddle, RAMIRO) Objective Vital Signs Date Time Temp Pulse Resp B/P (MAP) Pulse Ox O2 Delivery O2 Flow Rate FiO2 05/19/17 08:00 Room Air 05/19/17 07:58 36.3 92 18 114/73 (87) 98 Room Air 05/19/17 04:00 Room Air 05/19/17 03:49 37.0 78 12 94/58 (70) 96 Room Air 05/19/17 00:27 36.8 91 12 125/66 (85) 98 Room Air 05/18/17 23:30 Room Air 05/18/17 22:00 36.8 97 124/64 (84) 05/18/17 21:15 94 108/53 05/18/17 21:00 97 114/65 05/18/17 20:45 103 151/61 05/18/17 20:30 97 109/65 05/18/17 20:15 97 108/62 05/18/17 20:00 93 107/59 05/18/17 19:45 96 108/56 05/18/17 19:45 97 Room Air 05/18/17 19:30 95 116/67 05/18/17 19:15 101 114/61 05/18/17 19:00 95 110/57 05/18/17 18:45 96 111/58 05/18/17 18:30 98 111/68 05/18/17 18:15 102 126/72 05/18/17 18:00 97 146/116 05/18/17 17:45 97 140/70 05/18/17 17:33 95 159/91 05/18/17 17:20 36.5 97 158/91 (113) 05/18/17 16:00 Room Air 05/18/17 15:35 36.5 96 16 111/67 (82) 97 Room Air 05/18/17 12:15 36.7 103 20 110/68 (82) 96 Room Air 05/18/17 12:00 Room Air 05/18/17 11:45 36.7 101 16 107/66 (80) 96 Room Air 05/18/17 11:15 36.7 97 22 114/70 (85) 96 Room Air 05/18/17 11:00 36.7 97 11 111/73 (86) 96 Room Air 05/18/17 10:45 36.7 97 14 110/70 (83) 96 Room Air 05/18/17 10:30 36.7 96 21 113/75 (88) 96 Room Air 05/18/17 10:12 94 16 90/63 96 Room Air 05/18/17 10:07 94 15 93/54 100 Room Air 05/18/17 10:02 92 14 96/52 95 Room Air 05/18/17 10:00 Oxymask 4 05/18/17 09:55 Oxymask 4 (Sandra Riddle, RAMIRO) Physical Exam Notes: General: no distress Eyes: normal inspection, PERLL Respiratory: chest non tender, clear to auscultation, normal breath sounds, no respiratory distress, no accessory muscle use Cardiac: regular rate and rhythm, no rub or gallop, systolic murmur 3/6, no edema, no jvd GI/: active bowel sounds, no abd pain or tenderness, soft, non distended Extremities: normal range of motion, normal strength, non tender Neuro/Psych: alert and oriented x 3, normal mood and affect Skin: normal color, dry (Sandra Riddle .RAMIRO) Laboratory Results Last 24 Hours Test 05/19/17 05:30 05/19/17 08:58 White Blood Count 4.15 K/uL Red Blood Count 3.31 M/uL Hemoglobin 10.5 g/dL Hematocrit 31.7 % Mean Corpuscular Volume 95.8 fL Mean Corpuscular Hemoglobin 31.7 pg Mean Corpuscular Hemoglobin Concent 33.1 g/dl Platelet Count 122 K/uL Mean Platelet Volume 9.1 fL Neutrophils (%) (Auto) 62.7 % Lymphocytes (%) (Auto) 17.8 % Monocytes (%) (Auto) 12.8 % Eosinophils (%) (Auto) 6.0 % Basophils (%) (Auto) 0.5 % Neutrophils # (Auto) 2.60 K/uL Lymphocytes # (Auto) 0.74 K/uL Monocytes # (Auto) 0.53 K/uL Eosinophils # (Auto) 0.25 K/uL Basophils # (Auto) 0.02 K/uL RDW Standard Deviation 57.3 fL RDW Coefficient of Variation 16.4 % Immature Granulocyte % (Auto) 0.2 % Immature Granulocyte # (Auto) 0.01 K/uL Sodium Level 136 mmol/L Potassium Level 3.8 mmol/L Chloride Level 100 mmol/L Carbon Dioxide Level 28 mmol/L Anion Gap 8.0 mmol/L Blood Urea Nitrogen 19 mg/dl Creatinine 4.90 mg/dl Est Creatinine Clear Calc Drug Dose 22.3 ml/min Estimated GFR () 18.2 Estimated GFR (Non- 15.7 BUN/Creatinine Ratio 4.0 Random Glucose 89 mg/dl Calcium Level 8.5 mg/dl Phosphorus Level 5.2 mg/dl Magnesium Level 2.4 mg/dl (Sandra Riddle CRNP) Assessment and Plan 22 y/o M with complex history including membranous glomerulonephropathy - ESRD since age 16, ascending aortic dissection 02/11, HTN, hypothyroid, previous episodes of critical hyperkalemia requiring emergent dialysis. The pt reported nausea, vomiting and weakness [employer] which progressed to somnolence. EMS was alerted. On arrival to the pt's house it was reported that he was hypotensive and bradycardic, initially requiring pacing. On arrival to the ER, an EKG displayed wide-complex tachycardia. Initially it was thought that this was VT, however, an iSTAT K came back at 9.0 and the EKG therefore may have represented sine waves. The pt was provided with Calcium gluconate, bicarb, insulin/D50. Nephrology was notified to request emergent dialysis. ESRD/hyperK / Vtach - symptomatic on admission, initially with bradycardia then wide complex tachycardia - likely sine waves. EKG largely normalized following treatment for hyperK. Emergent dialysis given. K today is 3.8 today - nephrology consulted - they had concern about fistula and ordered an US which showed improved thrombus. Vascular surgery consulted and they will took him to the OR 05/18 for fistulogram and stents x 3 - consulted cardiology about ICD placement given that this is his second episode of dysrhythmia due to hyperkalemia - they do not feel this is necessary , focus should be on maintaining normal potassium levels - Sinus tachycardia has improved - 90s-100 on the monitor - If K remains stable tomorrow morning, can likely discharge HTN/ hypotension - continue lisinopril and coreg - blood pressures low normal Sepsis of unknown origin - patient was febrile 05/15 evening, hypotensive over the night - femoral line discontinued - blood cultures from the line were positive but likely contaminant as one vial was coag neg staph - procalcitonin was marginally elevated and trended up, c reactive protein and sed rate mildly elevated . - continue vancomycin - patient has not been febrile since 05/15 Hypothyroid - cont Synthroid Leg pain secondary to IO - continue lidocaine patch - oxycodone prn, IV morphineent - right tib/fib xray negative for acute process - US lower extremity negative for clot - pain management consulted - MRI of the leg shows - edema/fluid seen primarily surrounding the tibia and extending into the deep fascial planes and a few of the proximal lower leg muscles as described above. There is also anteromedial subcutaneous edema. These findings are nonspecific fasciitis/myositis and could be due to an infectious or possibly a posttraumatic process. No loculated fluid collections at this time to suggest an abscess. - There is also mild nonspecific patchy edema-like marrow signal seen throughout the majority of the tibia. This can also be seen in the setting of an infectious or reactive process. A bone infarct could also have a similar appearance but is considered less likely. - ortho consulted - conservative management for now - repeat MRI - restart Vancomycin Full code DVT proph - heparin subq (Sandra Riddle ., RAMIRO) Attending Note & Attestation - Pt seen/examined, chart reviewed, care plan d/w RAMIRO Sandra Riddle. I agree w/ the kennedy components of her progress note except right leg - from just below the knee to just above the ankle - is exquisitely tender to even light touch/palpation. Pt with severe pain RLE. No better than yesterday, and if anything is worse. Cannot bear weight on right leg due to pain but can bend right hip and right knee without difficulty. Denies paresthesias of right leg or right foot. Eating ok. Tele wnl. VSS, afebrile gen - writhing in pain in the bed due to RLE pain neck - JVD present heart - RRR, s1, s2, 2/6 systolic murmur LLSB lungs - CTA b/l abd - soft, NT ext - RLE - cap refill brisk; pos tib pulse 2+, DP pulse 1-2+ he has mild swelling of the entire RLE from the knee down to the ankle; there is no joint effusion of the right knee or ankle, however any light palpation of the RLE causes exquisite tenderness A/P: 1. recent wide-complex tachycardia 2nd to critical hyperkalemia - resolved 2. coag neg staph bacteria on blood cx - thought to be contaminant 3. RLE pain - see below 4. HTN - resumed meds. 5. ESRD on HD - appreciate nephrology assistance. 6. malfunctioning LUE AV fistula - s/p fistulogram with stent placement by Dr. Sierra, POD #1. Appreciate his assistance. 7. DVT proph - heparin BID. Ms. Riddle and I repeated the pt's MRI RLE today it shows slight progression of subcutaneous edema and swelling of multiple muscles of this compartment the tibia and fibula themselves appear normal no abscess or fluid collection I repeated the CPK today and again it was normal Checked lactate - this too was normal I discussed this gentleman's case with Dr. Blackburn from orthopedics as well as ortho trauma at [facility] via their transfer center Although, based on the literature, there is a 0.5-1% chance of compartment syndrome following IO needle insertion, it would be unlikely to have a compartment syndrome this far out from the IO (was placed in proposal analyst hours of 05/15/17) Normal CPK makes muscle necrosis/muscle compromise unlikely. I would expect some elevation in the CPK if he had myositis. Could he have some element of nerve irritation contributing to his hyper-algesia? With that said the question would be is if he seeded the compartment with bacteria during the insertion of the IO and now he has a component of infection in the leg For that reason we have elected to place back on IV abx (vanco for GPC, aztreonam for gram negatives & pseudomonas). Dr. Blackburn will f/u in the AM. Will change his morphine to dilaudid Schedule the motrin q8h Try k-pad tylenol 1gm TID as well Need to follow this very carefully with serial exams Appreciate nephrology, orthopedic, ID input Appreciate the assistance provided by ortho trauma from [place] by phone total time today over multiple visits and coordination of care - 70 minutes Familia Mancilla MD (Familia Mancilla MD)
[2017-05-19] MEDS: MoRPHine SULFATE 4 MG/ML 1 ML CARP\\VIAL IV PRN ×2 (11:16→16:19)
--- NOTE | 2017-05-19 12:11 | Nephrology Progress Note ---
Nephrology Progress Note Date of Service May 19, 2017. Chief Complaint Follow-up for end-stage renal disease on hemodialysis. Hamilton Valle was seen and examined in his room this morning. Overall he is feeling well denies any specific symptoms. Blood pressure, volume status electrolyte acceptable. Potassium normal at 3.8. Review of Systems A complete review of systems was performed. Pertinent positives are noted above. All other systems are negative. Vital Signs Last 8 Hrs Date Time Temp Pulse Resp B/P (MAP) Pulse Ox O2 Delivery O2 Flow Rate FiO2 05/19/17 08:00 Room Air 05/19/17 07:58 36.3 92 18 114/73 (87) 98 Room Air Last Recorded Weight Weight (Kilograms): 69.400 Physical Exam GENERAL: Young male, AAA x 3, pleasant, healthy-appearing, not in any distress. NECK: Supple, no JVD. RESPIRATORY: Normal breathing efforts, no accessory muscle use, clear to auscultation bilaterally, no wheezes or rales. CARDIOVASCULAR: S1, S2 normal, rate rhythm regular. EXTREMITY: No lower extremity edema NEURO: speech fluent. 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 Lives with mother Laboratory Results Past 24 Hours 05/19/17 05:30 Red Blood Count 3.31, Mean Corpuscular Volume 95.8, Mean Corpuscular Hemoglobin 31.7, Mean Corpuscular Hemoglobin Concent 33.1, Mean Platelet Volume 9.1, Neutrophils (%) (Auto) 62.7, Lymphocytes (%) (Auto) 17.8, Monocytes (%) (Auto) 12.8, Eosinophils (%) (Auto) 6.0, Basophils (%) (Auto) 0.5, Neutrophils # (Auto ) 2.60, Lymphocytes # (Auto) 0.74, Monocytes # (Auto) 0.53, Eosinophils # (Auto ) 0.25, Basophils # (Auto) 0.02 05/19/17 05:30 Test 05/19/17 05:30 05/19/17 08:58 White Blood Count 4.15 K/uL (4.8-10.8) Red Blood Count 3.31 M/uL (4.7-6.1) Hemoglobin 10.5 g/dL (14.0-18.0) Hematocrit 31.7 % (42-52) Mean Corpuscular Volume 95.8 fL (80-100) Mean Corpuscular Hemoglobin 31.7 pg (25-34) Mean Corpuscular Hemoglobin Concent 33.1 g/dl (32-36) Platelet Count 122 K/uL (130-400) Mean Platelet Volume 9.1 fL (7.4-10.4) Neutrophils (%) (Auto) 62.7 % Lymphocytes (%) (Auto) 17.8 % Monocytes (%) (Auto) 12.8 % Eosinophils (%) (Auto) 6.0 % Basophils (%) (Auto) 0.5 % Neutrophils # (Auto) 2.60 K/uL (1.4-6.5) Lymphocytes # (Auto) 0.74 K/uL (1.2-3.4) Monocytes # (Auto) 0.53 K/uL (0.11-0.59) Eosinophils # (Auto) 0.25 K/uL (0-0.5) Basophils # (Auto) 0.02 K/uL (0-0.2) RDW Standard Deviation 57.3 fL (36.4-46.3) RDW Coefficient of Variation 16.4 % (11.5-14.5) Immature Granulocyte % (Auto) 0.2 % Immature Granulocyte # (Auto) 0.01 K/uL (0.00-0.02) Anion Gap 8.0 mmol/L (3-11) Est Creatinine Clear Calc Drug Dose 22.3 ml/min Estimated GFR () 18.2 Estimated GFR (Non- 15.7 BUN/Creatinine Ratio 4.0 (10-20) Calcium Level 8.5 mg/dl (8.5-10.1) Phosphorus Level 5.2 mg/dl (2.5-4.9) Magnesium Level 2.4 mg/dl (1.8-2.4) Random Vancomycin Level 17.5 mcg/ml Allergies Coded Allergies: Penicillins (Unverified Allergy, Severe, FACE SWELLS, 05/14/17) Amoxicillin (Verified Allergy, Unknown, ?, 05/14/17) Medications Current Inpatient Medications Medications (Trade) Dose Ordered Sig/Moises Route Start Time Stop Time Status Last Admin Dose Admin Lorazepam (Ativan Inj) 0.5 mg Q4H PRN IV 05/14/17 00:30 06/13/17 00:29 05/15/17 15:34 0.5 MG Atorvastatin Calcium (Lipitor Tab) 40 mg QPM PO 05/14/17 21:00 06/13/17 20:59 05/18/17 22:16 40 MG Gabapentin (Neurontin Cap) 200 mg QAM PO 05/14/17 09:00 06/13/17 08:59 05/19/17 08:15 200 MG Gabapentin (Neurontin Cap) 300 mg HS PO 05/14/17 21:00 06/13/17 20:59 05/18/17 22:16 300 MG Levothyroxine Sodium (Synthroid Tab) 50 mcg DAILYBB PO 05/14/17 06:00 06/13/17 05:59 05/19/17 05:36 50 MCG Sertraline HCl (Zoloft Tab) 50 mg DAILY PO 05/14/17 09:00 06/13/17 08:59 05/19/17 08:15 50 MG Miscellaneous Information (Order Awaiting Action) 1 ea QS N/A 05/14/17 08:00 06/13/17 07:59 Sevelamer HCl (Renagel Tab) 1,600 mg TIDM PO 05/14/17 07:15 06/13/17 07:59 05/19/17 08:16 1,600 MG Heparin Sodium (Porcine) (Heparin Sq 5000 Unit/0.5ml) 5,000 unit Q8 SQ 05/14/17 09:00 06/13/17 08:59 05/18/17 12:52 5,000 UNIT Lidocaine (Lidoderm Patch 5%) 1 patch QAM TD 05/15/17 09:00 06/14/17 08:59 05/19/17 08:16 1 PATCH Miscellaneous (Remove Lidoderm Patch) 1 ea DAILY@21 N/A 05/14/17 21:00 06/13/17 20:59 05/18/17 21:00 1 EA Lisinopril (Zestril Tab) 40 mg QAM PO 05/15/17 09:00 06/14/17 08:59 Future Hold 05/15/17 14:47 40 MG Non-Formulary Medication (Non-Formulary Patient'S Own Med) 1 ea DAILY PRN PO 05/14/17 21:45 06/13/17 21:44 05/15/17 21:59 1 EA Acetaminophen (Tylenol Tab) 650 mg Q6H PRN PO 05/15/17 17:15 06/14/17 17:14 05/19/17 04:34 650 MG Miscellaneous Information (Consult) 1 ea UD PRN N/A 05/15/17 17:15 06/14/17 17:14 Carvedilol (Coreg Tab) 25 mg BID PO 05/16/17 09:00 06/15/17 08:59 05/19/17 08:15 25 MG Morphine Sulfate (MoRPHine SULFATE INJ) 4 mg Q4H PRN IV 05/18/17 02:30 06/01/17 02:29 05/19/17 11:16 4 MG Ibuprofen (Motrin Tab) 600 mg TID PRN PO 05/18/17 15:00 06/17/17 14:59 05/19/17 04:34 600 MG Morphine Sulfate (MoRPHine SULFATE INJ) 2 mg Q4H PRN IV 05/18/17 22:30 06/01/17 22:29 05/19/17 05:03 2 MG Senna (Senokot Tab) 17.2 mg QAM PO 05/19/17 09:00 06/18/17 08:59 05/19/17 08:19 17.2 MG Polyethylene (Miralax Powder Packet) 17 gm BID PO 05/19/17 09:00 06/18/17 08:59 Impression (1) Hyperkalemia (2) ESRD on hemodialysis AVF with small area of surrounding ecchymosis suggestive of recent infiltration. 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 Hyperkalemia may be related to recirculation during HD. Fistulogram 05/18/[address] Sierra revealed a long segment of stenosis involving the venous outflow. Patient required stenting x 3. Recommendations -- Potassium remain normal at 3.8 after dialysis yesterday. Fistulogram by Dr. Sierra revealed a long segment of stenosis involving the venous outflow. Patient required stenting x 3. -- Recommend checking serum potassium Sunday. If potassium is within acceptable limits Sunday could potentially send home and resume outpatient HD Sunday in [place]. Will follow
--- NOTE | 2017-05-19 12:21 | Pharmacy Progress Note ---
Pharmacy Abx Dose Short Note Date of Service May 19, 2017. Assessment & Plan Assessment 22 year old male receiving vancomycin for treatment of SSTI. Per provider, continue with vancomycin at this time. Day # 5 of antimicrobial therapy. Confirmed patient will no receive HD today. Given therapeutic level after post dialysis dose yesterday, I will not redose until after next HD session. Plan Vancomycin * Trough level of 17.5 mcg/mL is therapeutic * Continue dose of 750 mg IV post next HD session * Goal trough level : 15 to 20 mcg/mL * Trough or random level ordered for: following next HD session. Pharmacy will continue to follow and will adjust dose/frequency as necessary. Thank you.
[2017-05-19] MEDS ORDERED: HYDROmorphone INJ 0.5 MG/0.5 ML SYR IV STA (14:05)
--- NOTE | 2017-05-19 15:41 | DIAGNOSTIC IMAGING REPORT ---
R LOWER EXT NONJOINT WITHOUT CLINICAL HISTORY: pain s/p IO pain TECHNIQUE: Multi axial MRI acquisition COMPARISON STUDY: 05/19/2017 FINDINGS: Findings produces described are slightly progressive. Heterogeneous bone marrow signal within the tibia is slightly increased in geographic extent and now involves the proximal tibial plateau to a somewhat greater degree. The edematous change surrounding the muscle bundles posterior to the tibia as well as in the subcutaneous tissues surrounding the lower leg are slightly progressive. The edematous change within the proximal flexor hallux longus and anterior tibialis muscles is slightly progressive. Study remains negative for abscess or collection. No cortical abnormality of the tibia or fibula is present. IMPRESSION: Slight progression of the edematous change as well as scattered fluid components surrounding the tibia, within the deep muscle structures, and at the outer margins of the muscle bundles. Differential is as noted previously. Study remains negative for abscess or collection. The above report was generated using voice recognition software. It may contain grammatical, syntax or spelling errors. Electronically signed by: Gary Chun M.D. 05/19/2017 3:40 PM Dictated Date/Time: 05/19/2017 3:29 PM
[2017-05-19] MEDS: IBUPROFEN 600 MG TAB PO SCH (20:00)
[2017-05-19] MEDS ORDERED: AZTREONAM IV 1,000 MG in DEXTROSE 5% 100ML 100 ML IV SCH (20:00)
[2017-05-19] MEDS: HYDROmorphone INJ 0.5 MG/0.5 ML SYR IV PRN (20:05)
[2017-05-19] MEDS: ACETAMINOPHEN 500 MG TAB PO SCH (20:20)
[2017-05-19] MEDS: GABAPENTIN 300 MG CAP PO SCH (20:22)
[2017-05-19] MEDS: ATORVASTATIN 40 MG TAB PO SCH (20:22)
[2017-05-19] MEDS ORDERED: AZTREONAM CONSULT ACTIVE PRN (22:30)
[2017-05-20] VITALS (9 sets, daily range): BP systolic 108–140; BP diastolic 69–88; PULSE 85–92; TEMP 36.4–36.6; O2SAT 89–100
[2017-05-20] MEDS: HYDROmorphone INJ 0.5 MG/0.5 ML SYR IV PRN ×5 (04:17→21:18)
[2017-05-20] MEDS: AZTREONAM IV 500 MG in DEXTROSE 5% 100ML 100 ML IV SCH ×3 (04:17→21:16)
[2017-05-20] MEDS: ACETAMINOPHEN 500 MG TAB PO SCH ×3 (05:59→21:21)
[2017-05-20] MEDS: LEVOTHYROXINE 50 MCG TAB PO SCH (05:59)
[2017-05-20 08:08] LABS: HEMATOCRIT 34.1 % (42-52); HEMOGLOBIN 11.2 g/dL (14.0-18.0); MEAN CELL VOLUME 96.1 fL (80-100); MEAN CORPUSCULAR HEMOGLOBIN 31.5 pg (25-34); MEAN CORPUSCULAR HGB CONC 32.8 g/dl (32-36); MEAN PLATELET VOLUME 10.4 fL (7.4-10.4); PLATELET COUNT 149 K/uL (130-400); RED CELL DISTRIBUTION WIDTH CV 15.8 % (11.5-14.5); RED CELL DISTRIBUTION WIDTH SD 55.3 fL (36.4-46.3); WHITE BLOOD COUNT 5.27 K/uL (4.8-10.8)
[2017-05-20] MEDS: LIDODERM (LIDOCAINE) PATCH 5% TD SCH (08:15)
[2017-05-20] MEDS: SEVELAMER HYDROCH 800 MG TAB PO SCH ×3 (08:15→17:14)
[2017-05-20] MEDS: SERTRALINE HCL 50 MG TAB PO SCH (08:15)
[2017-05-20] MEDS: POLYETHYLENE (MIRALAX) 17 GM PACK PO SCH ×3 (08:16→21:19)
[2017-05-20] MEDS: SENNA 8.6 MG TAB PO SCH (08:16)
[2017-05-20] MEDS: IBUPROFEN 600 MG TAB PO SCH ×3 (08:16→21:17)
[2017-05-20] MEDS: CARVEDILOL 25 MG TAB PO SCH ×2 (08:16→21:20)
[2017-05-20] MEDS: GABAPENTIN 100 MG CAP PO SCH (08:17)
[2017-05-20] MEDS: HEPARIN SOD 5000 UNIT/0.5 ML CARP SQ SCH ×2 (08:43→21:00)
[2017-05-20 08:59] LABS: CREATININE 8.26 mg/dl (0.60-1.40); POTASSIUM 4.1 mmol/L (3.5-5.1)
[2017-05-20] MEDS ORDERED: DiphenhydrAMINE INJ 25 MG in SYRINGE 0 ML IV PRN (09:00)
[2017-05-20] MEDS ORDERED: MoRPHine SULFATE 2 MG/ML CARP IV PRN (09:00)
--- NOTE | 2017-05-20 09:57 | Hospitalist Progress Note ---
Hospitalist Progress Note Date of Service May 20, 2017. (Sandra Riddle .RAMIRO) Subjective Pt evaluation today including: conversation w/ patient, physical exam, chart review, lab review, review of inpatient medication list Voiding: no voiding problems Mr. Clay continues to have right leg pain. The dilaudid is not helping as much as the morphine did. No events on telemetry overnight. ROS Constitutional: no chills, aches, sweats or fever Respiratory: no sob,cough, sputum, or wheezing Cardiac: no chest pain, palpitations, edema, orthopnea or lightheadedness GI: no abdominal pain, nausea, vomiting, diarrhea or constipation : no dysuria or hesitancy Extremities: see HPI Skin: no rash All other systems reviewed and negative (Sandra Riddle CRNP) Medications Medications Administered Medications (Trade) Dose Ordered Sig/Moises Route Start Time Stop Time Status Last Admin Dose Admin Lidocaine HCl (Lidocaine 2% 20MG/Ml Syringe) 100 mg STK-MED ONCE IV 05/13/17 23:22 05/13/17 23:23 DC 05/13/17 23:22 100 MG Albuterol Sulfate (Ventolin 0.5% 2.5MG/0.5ML Neb) 7.5 mg STK-MED ONCE INH 05/13/17 23:28 05/13/17 23:29 DC 05/13/17 23:47 7.5 MG Albuterol Sulfate (Ventolin 0.083% 2.5MG/3ML Neb) 2.5 mg STK-MED ONCE INH 05/13/17 23:28 05/13/17 23:29 DC 05/13/17 23:47 2.5 MG Insulin Human Regular (novoLIN-R U-100 PER UNIT) 10 units NOW STAT IV 05/13/17 23:38 05/13/17 23:42 DC 05/13/17 23:45 10 UNITS Dextrose (Dextrose 50% 50ML Syringe) 50 ml NOW STAT IV 05/13/17 23:38 05/13/17 23:42 DC 05/13/17 23:45 50 ML Fentanyl Citrate (Fentanyl Inj) 50 mcg NOW STAT IV 05/14/17 00:25 05/14/17 00:27 DC 05/14/17 00:33 50 MCG Lorazepam (Ativan Inj) 0.5 mg Q4H PRN IV 05/14/17 00:30 06/13/17 00:29 05/15/17 15:34 0.5 MG Heparin Sodium (Porcine) (No Heparin In Dialysis) 1 ea TODAY@0100 N/A 05/14/17 01:00 05/14/17 23:59 DC 05/14/17 12:09 1 EA Diphenhydramine HCl (Benadryl Inj) 50 mg STK-MED ONCE .ROUTE 05/14/17 01:17 05/14/17 01:18 DC 05/14/17 03:02 50 MG Atorvastatin Calcium (Lipitor Tab) 40 mg QPM PO 05/14/17 21:00 06/13/17 20:59 05/19/17 20:22 40 MG Carvedilol (Coreg Tab) 50 mg BID PO 05/14/17 09:00 05/16/17 15:54 DC 05/15/17 20:01 50 MG Gabapentin (Neurontin Cap) 200 mg QAM PO 05/14/17 09:00 06/13/17 08:59 05/20/17 08:17 200 MG Gabapentin (Neurontin Cap) 300 mg HS PO 05/14/17 21:00 06/13/17 20:59 05/19/17 20:22 300 MG Levothyroxine Sodium (Synthroid Tab) 50 mcg DAILYBB PO 05/14/17 06:00 06/13/17 05:59 05/20/17 05:59 50 MCG Sertraline HCl (Zoloft Tab) 50 mg DAILY PO 05/14/17 09:00 06/13/17 08:59 05/20/17 08:15 50 MG Sevelamer HCl (Renagel Tab) 1,600 mg TIDM PO 05/14/17 07:15 06/13/17 07:59 05/20/17 08:15 1,600 MG Heparin Sodium (Porcine) (Heparin Sq 5000 Unit/0.5ml) 5,000 unit Q8 SQ 05/14/17 09:00 05/19/17 18:50 DC 05/18/17 12:52 5,000 UNIT Hydromorphone HCl (Dilaudid Inj) 0.5 mg STK-MED ONCE .ROUTE 05/14/17 06:51 05/14/17 06:52 DC 05/14/17 06:54 0.25 MG Perflutren Lipid Microsphere (Definity) 2 ml ONE ONCE IV 05/14/17 10:24 05/14/17 10:25 DC 05/14/17 10:25 2 ML Lidocaine (Lidoderm Patch 5%) 1 patch QAM TD 05/15/17 09:00 06/14/17 08:59 05/20/17 08:15 1 PATCH Miscellaneous (Remove Lidoderm Patch) 1 ea DAILY@21 N/A 05/14/17 21:00 06/13/17 20:59 05/18/17 21:00 1 EA Lidocaine (Lidoderm Patch 5%) 1 patch ONE ONCE TD 05/14/17 12:00 05/14/17 12:01 DC 05/14/17 11:57 1 PATCH Hydromorphone HCl (Dilaudid Inj) 0.5 mg ONE ONCE IV 05/14/17 13:36 05/14/17 13:37 DC 05/14/17 13:42 0.5 MG Heparin Sodium (Porcine) (Heparin Iv Bolus) 2,000 unit TODAY IV 05/15/17 08:00 05/15/17 08:01 DC 05/15/17 10:30 2,000 UNIT Heparin Sodium (Porcine) (Heparin Iv Bolus) 500 unit Q1H IV 05/15/17 09:00 05/15/17 10:01 DC 05/15/17 12:30 500 UNIT Lisinopril (Zestril Tab) 40 mg QAM PO 05/15/17 09:00 06/14/17 08:59 Future Hold 05/15/17 14:47 40 MG Oxycodone HCl (Roxicodone Immediate Rel Tab) 5 mg Q4H PRN PO 05/14/17 16:30 05/17/17 18:28 DC 05/17/17 15:09 5 MG Non-Formulary Medication (Non-Formulary Patient'S Own Med) 1 ea DAILY PRN PO 05/14/17 21:45 06/13/17 21:44 05/15/17 21:59 1 EA Morphine Sulfate (MoRPHine SULFATE INJ) 4 mg Q4H PRN IV 05/15/17 01:15 05/15/17 15:52 DC 05/15/17 11:41 4 MG Morphine Sulfate (MoRPHine SULFATE INJ) 4 mg STK-MED ONCE .ROUTE 05/15/17 01:11 05/15/17 01:12 DC 05/15/17 01:14 4 MG Hydromorphone HCl (Dilaudid Inj) 0.5 mg STK-MED ONCE .ROUTE 05/15/17 08:57 05/15/17 08:58 DC 05/15/17 08:57 0.5 MG Diphenhydramine HCl (Benadryl Inj) 25 mg NOW STAT IV 05/15/17 09:47 05/15/17 10:16 DC 05/15/17 10:45 25 MG Hydromorphone HCl (Dilaudid Inj) 0.5 mg Q4H PRN IV 05/15/17 15:45 05/16/17 02:58 DC 05/15/17 20:06 0.5 MG Acetaminophen (Tylenol Tab) 650 mg Q6H PRN PO 05/15/17 17:15 05/19/17 18:50 DC 05/19/17 04:34 650 MG Vancomycin HCl 1250 mg/Sodium Chloride 275 ml @ 125 mls/hr NOW ONCE IV 05/15/17 17:45 05/15/17 19:56 DC 05/15/17 18:52 125 MLS/HR Cefepime HCl 1000 mg/Syringe 11 ml @ 5.5 mls/min TODAY@1800 ONCE IV 05/15/17 18:00 05/15/17 18:01 DC 05/15/17 18:52 5.5 MLS/MIN Sodium Chloride 500 ml @ 125 mls/hr Q4H IV 05/16/17 00:30 05/16/17 04:29 DC 05/16/17 00:55 125 MLS/HR Morphine Sulfate (MoRPHine SULFATE INJ) 4 mg Q6H PRN IV 05/16/17 03:00 05/16/17 15:54 DC 05/16/17 15:40 4 MG Lidocaine (Lidoderm Patch 5%) 1 patch NOW ONCE TD 05/16/17 03:45 05/16/17 03:50 DC 05/16/17 05:03 1 PATCH Miscellaneous (Remove Lidoderm Patch) 1 ea TODAY@1600 N/A 05/16/17 16:00 05/16/17 16:01 DC 05/16/17 16:01 1 EA Carvedilol (Coreg Tab) 25 mg BID PO 05/16/17 09:00 06/15/17 08:59 05/20/17 08:16 25 MG Morphine Sulfate (MoRPHine SULFATE INJ) 2 mg Q6H PRN IV 05/16/17 16:00 05/17/17 18:28 DC 05/17/17 17:03 2 MG Clindamycin Phosphate 54 ml @ 100 mls/hr PREOP IV 05/18/17 06:00 05/18/17 18:00 DC 05/18/17 08:58 100 MLS/HR Hydromorphone HCl (Dilaudid Tab) 2 mg Q3H PRN PO 05/17/17 18:30 05/18/17 02:16 DC 05/17/17 22:29 2 MG Hydromorphone HCl (Dilaudid Inj) 0.5 mg Q2H PRN IV 05/17/17 18:45 05/18/17 02:16 DC 05/17/17 23:27 0.5 MG Hydroxyzine HCl (Vistaril Tab) 50 mg NOW STAT PO 05/18/17 02:14 05/18/17 02:17 DC 05/18/17 02:33 50 MG Morphine Sulfate (MoRPHine SULFATE INJ) 4 mg Q4H PRN IV 05/18/17 02:30 05/19/17 18:50 DC 05/19/17 16:19 4 MG Vancomycin HCl 750 mg/Sodium Chloride 265 ml @ 125 mls/hr AFTER DIALYSIS COMPLETE ONCE IV 05/18/17 13:00 05/18/17 15:07 DC 05/18/17 12:50 125 MLS/HR Lidocaine HCl (Xylocaine 1% Inj (Local)) 2 ml ONE ONCE INJ 05/18/17 09:14 05/18/17 09:36 DC 05/18/17 09:14 2 ML Midazolam HCl (Versed Inj) 1 mg ONE ONCE IV 05/18/17 09:12 05/18/17 09:36 DC 05/18/17 09:12 1 MG Fentanyl Citrate (Fentanyl Inj) 50 mcg ONE ONCE IV 05/18/17 09:22 05/18/17 09:36 DC 05/18/17 09:22 50 MCG Heparin Sodium/ Sodium Chloride (Heparin Sod/Ns 2 Units/Ml) 120 unit ONE ONCE IV 05/18/17 10:06 05/18/17 10:09 DC 05/18/17 10:06 120 UNIT Ioversol (Optiray 300) 45 ml ONE ONCE IV 05/18/17 10:06 05/18/17 10:09 DC 05/18/17 10:06 45 ML Ibuprofen (Motrin Tab) 600 mg TID PRN PO 05/18/17 15:00 05/19/17 18:50 DC 05/19/17 04:34 600 MG Diphenhydramine HCl (Benadryl Syrup) 25 mg ONE ONCE PO 05/18/17 19:15 05/18/17 19:16 DC 05/18/17 19:32 25 MG Morphine Sulfate (MoRPHine SULFATE INJ) 2 mg Q4H PRN IV 05/18/17 22:30 05/19/17 18:50 DC 05/19/17 12:27 2 MG Senna (Senokot Tab) 17.2 mg QAM PO 05/19/17 09:00 06/18/17 08:59 05/20/17 08:16 17.2 MG Hydromorphone HCl (Dilaudid Inj) 0.5 mg NOW STAT IV 05/19/17 14:05 05/19/17 14:07 DC 05/19/17 14:13 0.5 MG Aztreonam 500 mg/ Dextrose 105 ml @ 100 mls/hr Q8H IV 05/20/17 04:00 07/01/17 03:59 05/20/17 04:17 100 MLS/HR Acetaminophen (Tylenol Tab) 1,000 mg Q8 PO 05/19/17 22:00 06/18/17 21:59 05/20/17 05:59 1,000 MG Ibuprofen (Motrin Tab) 600 mg TID PO 05/19/17 20:00 05/21/17 19:59 05/20/17 08:16 600 MG Hydromorphone HCl (Dilaudid Inj) 0.5 mg Q4H PRN IV 05/19/17 19:00 05/20/17 08:52 DC 05/20/17 08:15 0.5 MG Aztreonam 1000 mg/ Dextrose 110 ml @ 100 mls/hr TODAY@2000 IV 05/19/17 20:00 05/19/17 22:00 DC 05/19/17 20:05 100 MLS/HR (Sandra Riddle CRNP) Objective Vital Signs Date Time Temp Pulse Resp B/P (MAP) Pulse Ox O2 Delivery O2 Flow Rate FiO2 05/20/17 08:05 Room Air 05/20/17 07:42 36.5 88 18 140/88 (105) 100 Room Air 05/20/17 04:06 36.4 85 16 122/75 (91) 99 Room Air 05/20/17 04:00 Room Air 05/20/17 00:32 97 Room Air 05/20/17 00:20 Room Air 05/20/17 00:17 36.6 92 12 108/69 (82) 89 Room Air 05/19/17 20:00 96 Room Air 05/19/17 19:49 37.8 114 22 154/88 (110) 96 Room Air 05/19/17 16:16 36.4 102 16 167/96 (119) 99 Room Air 05/19/17 16:00 Room Air 05/19/17 12:00 Room Air 05/19/17 11:30 36.4 97 18 121/75 (90) 100 Room Air (Sandra Riddle CRNP) Physical Exam Notes: General: no distress Eyes: normal inspection, PERLL Respiratory: chest non tender, clear to auscultation, normal breath sounds, no respiratory distress, no accessory muscle use Cardiac: regular rate and rhythm, no rub or gallop, 3/6 systolic murmur, no edema, no jvd GI/: active bowel sounds, no abd pain or tenderness, soft, non distended Extremities: normal range of motion, normal strength, non tender Neuro/Psych: alert and oriented x 3, normal mood and affect Skin: normal color, dry (Sandra Riddle CRNP) Laboratory Results Last 24 Hours Test 05/19/17 17:41 05/20/17 07:52 05/20/17 07:53 Lactic Acid Level 0.8 mmol/L Total Creatine Kinase 49 U/L Sodium Level 134 mmol/L Potassium Level 4.1 mmol/L Chloride Level 101 mmol/L Carbon Dioxide Level 22 mmol/L Anion Gap 11.0 mmol/L Blood Urea Nitrogen 43 mg/dl Creatinine 8.26 mg/dl Est Creatinine Clear Calc Drug Dose 13.2 ml/min Estimated GFR () 9.7 Estimated GFR (Non- 8.3 BUN/Creatinine Ratio 5.2 Random Glucose 81 mg/dl Calcium Level 9.0 mg/dl White Blood Count 5.27 K/uL Red Blood Count 3.55 M/uL Hemoglobin 11.2 g/dL Hematocrit 34.1 % Mean Corpuscular Volume 96.1 fL Mean Corpuscular Hemoglobin 31.5 pg Mean Corpuscular Hemoglobin Concent 32.8 g/dl RDW Standard Deviation 55.3 fL RDW Coefficient of Variation 15.8 % Platelet Count 149 K/uL Mean Platelet Volume 10.4 fL (Sandra Riddle ., RAMIRO) Assessment and Plan 22 y/o M with complex history including membranous glomerulonephropathy - ESRD since age 16, ascending aortic dissection 02/11, HTN, hypothyroid, previous episodes of critical hyperkalemia requiring emergent dialysis. The pt reported nausea, vomiting and weakness [employer] which progressed to somnolence. EMS was alerted. On arrival to the pt's house it was reported that he was hypotensive and bradycardic, initially requiring pacing. On arrival to the ER, an EKG displayed wide-complex tachycardia. Initially it was thought that this was VT, however, an iSTAT K came back at 9.0 and the EKG therefore may have represented sine waves. The pt was provided with Calcium gluconate, bicarb, insulin/D50. Nephrology was notified to request emergent dialysis. ESRD/hyperK / Vtach - symptomatic on admission, initially with bradycardia then wide complex tachycardia - likely sine waves. EKG largely normalized following treatment for hyperK. Emergent dialysis given. K today is 4.1 today - nephrology consulted - they had concern about fistula and ordered an US which showed improved thrombus. Vascular surgery consulted and they will took him to the OR 05/18 for fistulogram and stents x 3 - consulted cardiology about ICD placement given that this is his second episode of dysrhythmia due to hyperkalemia - they do not feel this is necessary , focus should be on maintaining normal potassium levels - Sinus tachycardia has improved - 90s-100 on the monitor - If K remains stable tomorrow morning, can likely discharge after dialysis if no further fevers HTN/ hypotension - continue lisinopril and coreg - blood pressures low normal Sepsis of unknown origin/ persistent right leg pain s/p IO, infection? - patient was febrile / evening, hypotensive over the night - femoral line discontinued - blood cultures from the line were positive but likely contaminant as one vial was coag neg staph - procalcitonin was marginally elevated and trended up, c reactive protein and sed rate mildly elevated . - continue vancomycin, aztreonam added - patient with low grade fever 37.8 over the night - cpk has not trended up, patient does not have paresthesias, pedal pulses palpable and pain has persisted for a week at this point - not likely compartment syndrome. - continue lidocaine patch - oxycodone prn - will increase dilaudid frequency to q3h to help cover breakthrough pain - right tib/fib xray negative for acute process - US lower extremity negative for clot - pain management consulted - MRI of the leg shows - edema/fluid seen primarily surrounding the tibia and extending into the deep fascial planes and a few of the proximal lower leg muscles as described above. There is also anteromedial subcutaneous edema. These findings are nonspecific fasciitis/myositis and could be due to an infectious or possibly a posttraumatic process. No loculated fluid collections at this time to suggest an abscess. - There is also mild nonspecific patchy edema-like marrow signal seen throughout the majority of the tibia. This can also be seen in the setting of an infectious or reactive process. A bone infarct could also have a similar appearance but is considered less likely. - ortho consulted - conservative management for now - repeat MRI - showed slight progression of edema Hypothyroid - cont Synthroid Full code DVT proph - heparin subq (Sandra Riddle ., RAMIRO) Attending Note & Attestation - Pt seen/examined, chart reviewed, care plan d/w RAMIRO Riddle. I agree w/ the kennedy components of her progress note except, again - the right leg from just below the knee to just above the ankle is mildly edematous. There is much less tenderness to palpation over the RLE today, however. Reports ongoing pain but maybe not as severe. VSS, afebrile, looks much more comfortable today neck - JVD present - no change heart - RRR, s1, s2, 2/6 systolic murmur LLSB lungs - CTA b/l abd - soft, NT ext - RLE - cap refill brisk; pos tib pulse 2+, DP pulse 2+ edema of RLE unchanged MUCH LESS TENDERNESS TO PALPATION TODAY A/P: 1. recent wide-complex tachycardia 2nd to critical hyperkalemia - resolved 2. coag neg staph bacteria on blood cx - thought to be contaminant 3. RLE pain - see below 4. HTN - controlled 5. ESRD on HD - appreciate nephrology assistance. HD tomorrow. 6. malfunctioning LUE AV fistula - s/p fistulogram with stent placement by Dr. Sierra, POD #2. Appreciate his assistance. 7. DVT proph - heparin BID. #3 - I suspect some element of infectious process in the leg that is resolving he has had low-grade fevers in the midst of the RLE pain MRI x 2 with mild muscle swelling - CPK x 2 normal, however to me he looks better and there is certainly much less tenderness on the right leg today appreciate Dr. Blackburn's input continue current IV abx re-eval tomorrow Familia Mancilla MD (Familia Mancilla MD)
[2017-05-20] MEDS ORDERED: DiphenhydrAMINE HCL 50 MG/ML VIAL IV PRN (10:15)
[2017-05-20] MEDS: OXYCODONE HCL IR 5 MG TAB (IMMEDIATE RELEASE) PO PRN ×3 (10:31→22:28)
--- NOTE | 2017-05-20 12:28 | Nephrology Progress Note ---
Nephrology Progress Note Date of Service May 20, 2017. Chief Complaint Follow-up for end-stage renal disease on hemodialysis. Hamilton Valle was seen and examined in his room this morning. He is complaining of pain in his right lower extremity. Electrolyte remain acceptable, potassium normal. Blood pressure volume status acceptable. Having difficulty with peripheral IV access. Review of Systems A complete review of systems was performed. Pertinent positives are noted above. All other systems are negative. Vital Signs Last 8 Hrs Date Time Temp Pulse Resp B/P (MAP) Pulse Ox O2 Delivery O2 Flow Rate FiO2 05/20/17 08:05 Room Air 05/20/17 07:42 36.5 88 18 140/88 (105) 100 Room Air 05/20/17 04:06 36.4 85 16 122/75 (91) 99 Room Air 05/20/17 04:00 Room Air Last Recorded Weight Weight (Kilograms): 67.000 Physical Exam GENERAL: Young male, AAA x 3, pleasant, healthy-appearing, not in any distress. NECK: Supple, no JVD. RESPIRATORY: Normal breathing efforts, no accessory muscle use, clear to auscultation bilaterally, no wheezes or rales. CARDIOVASCULAR: S1, S2 normal, rate rhythm regular. EXTREMITY: No lower extremity edema NEURO: speech fluent. 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 Lives with mother Laboratory Results Past 24 Hours 05/20/17 07:53 05/20/17 07:52 Test 05/19/17 17:41 05/20/17 07:52 05/20/17 07:53 Lactic Acid Level 0.8 mmol/L (0.4-2.0) Total Creatine Kinase 49 U/L (39-308) Anion Gap 11.0 mmol/L (3-11) Est Creatinine Clear Calc Drug Dose 13.2 ml/min Estimated GFR () 9.7 Estimated GFR (Non- 8.3 BUN/Creatinine Ratio 5.2 (10-20) Calcium Level 9.0 mg/dl (8.5-10.1) Red Blood Count 3.55 M/uL (4.7-6.1) Mean Corpuscular Volume 96.1 fL (80-100) Mean Corpuscular Hemoglobin 31.5 pg (25-34) Mean Corpuscular Hemoglobin Concent 32.8 g/dl (32-36) RDW Standard Deviation 55.3 fL (36.4-46.3) RDW Coefficient of Variation 15.8 % (11.5-14.5) Mean Platelet Volume 10.4 fL (7.4-10.4) Allergies Coded Allergies: Penicillins (Unverified Allergy, Severe, FACE SWELLS, 05/14/17) Amoxicillin (Verified Allergy, Unknown, ?, 05/14/17) Medications Current Inpatient Medications Medications (Trade) Dose Ordered Sig/Moises Route Start Time Stop Time Status Last Admin Dose Admin Lorazepam (Ativan Inj) 0.5 mg Q4H PRN IV 05/14/17 00:30 06/13/17 00:29 05/15/17 15:34 0.5 MG Atorvastatin Calcium (Lipitor Tab) 40 mg QPM PO 05/14/17 21:00 06/13/17 20:59 05/19/17 20:22 40 MG Gabapentin (Neurontin Cap) 200 mg QAM PO 05/14/17 09:00 06/13/17 08:59 05/20/17 08:17 200 MG Gabapentin (Neurontin Cap) 300 mg HS PO 05/14/17 21:00 06/13/17 20:59 05/19/17 20:22 300 MG Levothyroxine Sodium (Synthroid Tab) 50 mcg DAILYBB PO 05/14/17 06:00 06/13/17 05:59 05/20/17 05:59 50 MCG Sertraline HCl (Zoloft Tab) 50 mg DAILY PO 05/14/17 09:00 06/13/17 08:59 05/20/17 08:15 50 MG Miscellaneous Information (Order Awaiting Action) 1 ea QS N/A 05/14/17 08:00 06/13/17 07:59 Sevelamer HCl (Renagel Tab) 1,600 mg TIDM PO 05/14/17 07:15 06/13/17 07:59 05/20/17 08:15 1,600 MG Lidocaine (Lidoderm Patch 5%) 1 patch QAM TD 05/15/17 09:00 06/14/17 08:59 05/20/17 08:15 1 PATCH Miscellaneous (Remove Lidoderm Patch) 1 ea DAILY@21 N/A 05/14/17 21:00 06/13/17 20:59 05/18/17 21:00 1 EA Lisinopril (Zestril Tab) 40 mg QAM PO 05/15/17 09:00 06/14/17 08:59 Future Hold 05/15/17 14:47 40 MG Non-Formulary Medication (Non-Formulary Patient'S Own Med) 1 ea DAILY PRN PO 05/14/17 21:45 06/13/17 21:44 05/15/17 21:59 1 EA Miscellaneous Information (Consult) 1 ea UD PRN N/A 05/15/17 17:15 06/14/17 17:14 Carvedilol (Coreg Tab) 25 mg BID PO 05/16/17 09:00 06/15/17 08:59 05/20/17 08:16 25 MG Senna (Senokot Tab) 17.2 mg QAM PO 05/19/17 09:00 06/18/17 08:59 05/20/17 08:16 17.2 MG Polyethylene (Miralax Powder Packet) 17 gm BID PO 05/19/17 09:00 06/18/17 08:59 Aztreonam 500 mg/ Dextrose 105 ml @ 100 mls/hr Q8H IV 05/20/17 04:00 07/01/17 03:59 05/20/17 04:17 100 MLS/HR Acetaminophen (Tylenol Tab) 1,000 mg Q8 PO 05/19/17 22:00 06/18/17 21:59 05/20/17 05:59 1,000 MG Heparin Sodium (Porcine) (Heparin Sq 5000 Unit/0.5ml) 5,000 unit Q12 SQ 05/19/17 21:00 06/18/17 20:59 Ibuprofen (Motrin Tab) 600 mg TID PO 05/19/17 20:00 05/21/17 19:59 05/20/17 08:16 600 MG Aztreonam (Consult) 1 ea UD PRN N/A 05/19/17 22:30 06/18/17 22:29 Oxycodone HCl (Roxicodone Immediate Rel Tab) 5 mg Q4H PRN PO 05/20/17 09:00 06/03/17 08:59 UNV Morphine Sulfate (MoRPHine SULFATE INJ) 4 mg Q4H PRN IV 05/20/17 09:00 06/03/17 08:59 UNV Diphenhydramine HCl 25 mg/Syringe 0.5 ml @ 1 mls/min ONE PRN IV 05/20/17 09:00 06/19/17 08:59 UNV Impression (1) Hyperkalemia (2) ESRD on hemodialysis AVF with small area of surrounding ecchymosis suggestive of recent infiltration. 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 Hyperkalemia may be related to recirculation during HD. Fistulogram 05/18/[address] Sierra revealed a long segment of stenosis involving the venous outflow. Patient required stenting x 3. Recommendations -- Potassium remain normal. Fistulogram 05/18/[address] Sierra revealed a long segment of stenosis involving the venous outflow. Patient required stenting x 3. -- suggest avoiding PICC or midline considering difficulty with his left upper extremity dialysis access and in future may need access in right upper extremity. If no other option and patient needs IV antibiotic in that case okay to have midline. Will follow
--- NOTE | 2017-05-20 14:01 | Orthopedic Progress Note ---
Orthopedic Progress Note Date of Service May 20, 2017. Subjective Reports: complaints (R LE vague diffuse pain. No significant increase in pain with passive stretch R foot/ankle. ), Denies: chest pain, SOB, nausea / vomiting , light headedness Additional Notes: No fevers or chills. Objective capillary refill less than 2 sec., A&O x3, toes mobile Right calf/compartments soft. No fluctuance or fluid collections. No focal bruising or ecchymosis. No streaking. No atypical masses. No ropiness or atypical tissue bands. Cap refill brisk at <2sec B LE. DP/PT 2/4 B LE. Date Time Temp Pulse Resp B/P (MAP) Pulse Ox O2 Delivery O2 Flow Rate FiO2 05/20/17 12:02 Room Air 05/20/17 11:30 36.4 90 24 131/81 (98) 95 Room Air 05/20/17 08:05 Room Air 05/20/17 07:42 36.5 88 18 140/88 (105) 100 Room Air 05/20/17 04:06 36.4 85 16 122/75 (91) 99 Room Air 05/20/17 04:00 Room Air 05/20/17 00:32 97 Room Air 05/20/17 00:20 Room Air 05/20/17 00:17 36.6 92 12 108/69 (82) 89 Room Air 05/19/17 20:00 96 Room Air 05/19/17 19:49 37.8 114 22 154/88 (110) 96 Room Air 05/19/17 16:16 36.4 102 16 167/96 (119) 99 Room Air 05/19/17 16:00 Room Air Laboratory Results 24 Hours: Test 05/20/17 07:53 Hematocrit 34.1 % Hemoglobin 11.2 g/dL Assessment & Plan Assessment: Pain RLE with recent IO IV access that was needed prior to admit. Continue Ice/elevation. No evidence for compartment syndrome. No evidence of abscess or infectious periostitis. MRI and clinical course unconvincing for osteomyelitis. Nonoperative Plan: Nonoperative management with pain control, Alternating Heat and Ice R LE. Antiinflammatories either topically or orally if approved by Nephro, Cardio and Medical services. PT/OT as able Thank you for the kind consultation. F/U as outpatient with Dr Bere reyes Inhouse Planning Pain Management: Morphine
--- NOTE | 2017-05-20 14:53 | Pharmacy Progress Note ---
Pharmacy Abx Dose Short Note Date of Service May 20, 2017. Assessment & Plan Assessment 22 year old male receiving vancomycin for treatment of Coag negative staph in the blood (02/27). Random level remains therapeutic again today. Will not need to redose until after next dialysis session (tomorrow per nurse). Day # 6 of antimicrobial therapy. Plan Vancomycin * Trough level of 16 mcg/mL remains therapeutic * will redose as necessary post HD * Goal trough level for : 15 to 20 mcg/mL Pharmacy will continue to follow and will adjust dose/frequency as necessary. Thank you.
[2017-05-20] MEDS: GABAPENTIN 300 MG CAP PO SCH (21:17)
[2017-05-20] MEDS: ATORVASTATIN 40 MG TAB PO SCH (21:18)
[2017-05-21] VITALS (22 sets, daily range): BP systolic 122–170; BP diastolic 74–91; PULSE 82–101; TEMP 36.4–37.2; O2SAT 95–100
[2017-05-21] MEDS: AZTREONAM IV 500 MG in DEXTROSE 5% 100ML 100 ML IV SCH ×3 (04:28→20:52)
[2017-05-21] MEDS: LEVOTHYROXINE 50 MCG TAB PO SCH (04:48)
[2017-05-21] MEDS: ACETAMINOPHEN 500 MG TAB PO SCH ×3 (04:49→20:42)
[2017-05-21] MEDS: OXYCODONE HCL IR 5 MG TAB (IMMEDIATE RELEASE) PO PRN ×3 (04:50→20:40)
[2017-05-21 06:09] LABS: HEMATOCRIT 30.4 % (42-52); HEMOGLOBIN 10.2 g/dL (14.0-18.0); MEAN CELL VOLUME 95.3 fL (80-100); MEAN CORPUSCULAR HGB CONC 33.6 g/dl (32-36); MEAN PLATELET VOLUME 9.8 fL (7.4-10.4); PLATELET COUNT 138 K/uL (130-400); RED CELL DISTRIBUTION WIDTH CV 15.9 % (11.5-14.5); WHITE BLOOD COUNT 5.25 K/uL (4.8-10.8)
[2017-05-21 06:38] LABS: CALCIUM 8.5 mg/dl (8.5-10.1); CREATININE 10.8 mg/dl (0.60-1.40)
[2017-05-21] MEDS: POLYETHYLENE (MIRALAX) 17 GM PACK PO SCH ×2 (08:13→20:43)
[2017-05-21] MEDS: HEPARIN SOD 5000 UNIT/0.5 ML CARP SQ SCH ×2 (08:14→20:42)
[2017-05-21] MEDS: SENNA 8.6 MG TAB PO SCH (08:14)
[2017-05-21] MEDS: HYDROmorphone INJ 0.5 MG/0.5 ML SYR IV PRN ×2 (08:15→13:35)
[2017-05-21] MEDS: LIDODERM (LIDOCAINE) PATCH 5% TD SCH (08:16)
[2017-05-21] MEDS: SEVELAMER HYDROCH 800 MG TAB PO SCH ×3 (08:16→16:28)
[2017-05-21] MEDS: IBUPROFEN 600 MG TAB PO SCH ×2 (08:17→12:48)
--- NOTE | 2017-05-21 10:52 | Pharmacy Progress Note ---
Pharmacy Abx Dose Short Note Date of Service May 21, 2017. Assessment & Plan Assessment 22 year old male receiving Vancomycin for treatment of bacteremia Day # 7 of antimicrobial therapy. Plan Vancomycin * Random level of 16 mcg/mL is therapeutic. * Will give supplemental dose of 750mg post HD today * Randomy level ordered with AM labs 05/22/17 Pharmacy will continue to follow and will adjust dose/frequency as necessary. Thank you.
--- NOTE | 2017-05-21 12:08 | Nephrology Progress Note ---
Nephrology Progress Note Date of Service May 21, 2017. Chief Complaint Follow-up for end-stage renal disease on hemodialysis. Hamilton Valle was seen and examined in his room this morning During dialysis. Has been tolerating dialysis well. Electrolyte remain acceptable, potassium normal. Blood pressure volume status acceptable. Review of Systems A complete review of systems was performed. Pertinent positives are noted above. All other systems are negative. Vital Signs Last 8 Hrs Date Time Temp Pulse Resp B/P (MAP) Pulse Ox O2 Delivery O2 Flow Rate FiO2 05/21/17 04:00 95 Room Air 05/21/17 03:33 36.4 82 18 126/81 (96) 96 05/21/17 00:13 36.9 91 18 157/91 (113) 100 Last Recorded Weight Weight (Kilograms): 64.100 Physical Exam GENERAL: young male,, AAA x 3, pleasant, healthy-appearing, not in any distress. NECK: Supple, no JVD. RESPIRATORY: Normal breathing efforts, no accessory muscle use, clear to auscultation bilaterally, no wheezes or rales. CARDIOVASCULAR: S1, S2 normal, rate rhythm regular. EXTREMITY: No lower extremity edema NEURO: speech fluent. 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 Lives with mother Laboratory Results Past 24 Hours 05/21/17 05:39 05/21/17 05:39 Test 05/20/17 13:26 05/21/17 05:39 Random Vancomycin Level 16.0 mcg/ml Red Blood Count 3.19 M/uL (4.7-6.1) Mean Corpuscular Volume 95.3 fL (80-100) Mean Corpuscular Hemoglobin 32.0 pg (25-34) Mean Corpuscular Hemoglobin Concent 33.6 g/dl (32-36) RDW Standard Deviation 55.0 fL (36.4-46.3) RDW Coefficient of Variation 15.9 % (11.5-14.5) Mean Platelet Volume 9.8 fL (7.4-10.4) Anion Gap 15.0 mmol/L (3-11) Est Creatinine Clear Calc Drug Dose 9.8 ml/min Estimated GFR () 7.0 Estimated GFR (Non- 6.0 BUN/Creatinine Ratio 5.1 (10-20) Calcium Level 8.5 mg/dl (8.5-10.1) Allergies Coded Allergies: Penicillins (Unverified Allergy, Severe, FACE SWELLS, 05/14/17) Amoxicillin (Verified Allergy, Unknown, ?, 05/14/17) Medications Current Inpatient Medications Medications (Trade) Dose Ordered Sig/Moises Route Start Time Stop Time Status Last Admin Dose Admin Lorazepam (Ativan Inj) 0.5 mg Q4H PRN IV 05/14/17 00:30 06/13/17 00:29 05/15/17 15:34 0.5 MG Atorvastatin Calcium (Lipitor Tab) 40 mg QPM PO 05/14/17 21:00 06/13/17 20:59 05/20/17 21:18 40 MG Gabapentin (Neurontin Cap) 200 mg QAM PO 05/14/17 09:00 06/13/17 08:59 05/20/17 08:17 200 MG Gabapentin (Neurontin Cap) 300 mg HS PO 05/14/17 21:00 06/13/17 20:59 05/20/17 21:17 300 MG Levothyroxine Sodium (Synthroid Tab) 50 mcg DAILYBB PO 05/14/17 06:00 06/13/17 05:59 05/21/17 04:48 50 MCG Sertraline HCl (Zoloft Tab) 50 mg DAILY PO 05/14/17 09:00 06/13/17 08:59 05/20/17 08:15 50 MG Miscellaneous Information (Order Awaiting Action) 1 ea QS N/A 05/14/17 08:00 06/13/17 07:59 Sevelamer HCl (Renagel Tab) 1,600 mg TIDM PO 05/14/17 07:15 06/13/17 07:59 05/20/17 17:14 1,600 MG Lidocaine (Lidoderm Patch 5%) 1 patch QAM TD 05/15/17 09:00 06/14/17 08:59 05/20/17 08:15 1 PATCH Miscellaneous (Remove Lidoderm Patch) 1 ea DAILY@21 N/A 05/14/17 21:00 06/13/17 20:59 05/20/17 21:16 1 EA Lisinopril (Zestril Tab) 40 mg QAM PO 05/15/17 09:00 4/19/18 08:59 Future Hold 05/15/17 14:47 40 MG Non-Formulary Medication (Non-Formulary Patient'S Own Med) 1 ea DAILY PRN PO 05/14/17 21:45 06/13/17 21:44 05/15/17 21:59 1 EA Miscellaneous Information (Consult) 1 ea UD PRN N/A 05/15/17 17:15 06/14/17 17:14 Carvedilol (Coreg Tab) 25 mg BID PO 05/16/17 09:00 06/15/17 08:59 05/20/17 21:20 25 MG Senna (Senokot Tab) 17.2 mg QAM PO 05/19/17 09:00 06/18/17 08:59 05/20/17 08:16 17.2 MG Polyethylene (Miralax Powder Packet) 17 gm BID PO 05/19/17 09:00 06/18/17 08:59 Aztreonam 500 mg/ Dextrose 105 ml @ 100 mls/hr Q8H IV 05/20/17 04:00 07/01/17 03:59 05/21/17 04:28 100 MLS/HR Acetaminophen (Tylenol Tab) 1,000 mg Q8 PO 05/19/17 22:00 06/18/17 21:59 05/21/17 04:49 1,000 MG Heparin Sodium (Porcine) (Heparin Sq 5000 Unit/0.5ml) 5,000 unit Q12 SQ 05/19/17 21:00 06/18/17 20:59 Ibuprofen (Motrin Tab) 600 mg TID PO 05/19/17 20:00 05/21/17 19:59 05/20/17 21:17 600 MG Aztreonam (Consult) 1 ea UD PRN N/A 05/19/17 22:30 06/18/17 22:29 Oxycodone HCl (Roxicodone Immediate Rel Tab) 5 mg Q4H PRN PO 05/20/17 09:00 06/03/17 08:59 05/21/17 04:50 5 MG Hydromorphone HCl (Dilaudid Inj) 0.5 mg Q3H PRN IV 05/20/17 11:00 06/03/17 10:59 05/20/17 21:18 0.5 MG Diphenhydramine HCl (Benadryl Inj) 25 mg DAILY PRN IV 05/20/17 10:15 06/19/17 10:14 Impression (1) Hyperkalemia (2) ESRD on hemodialysis AVF with small area of surrounding ecchymosis suggestive of recent infiltration. 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 Hyperkalemia may be related to recirculation during HD. Fistulogram 05/18/[address] Sierra revealed a long segment of stenosis involving the venous outflow. Patient required stenting x 3. Recommendations -- currently getting hemodialysis today as his regular schedule, tolerating UF --avoid IV fluid --will give ZACK with hemodialysis --continue on Nephrocaps and phosphate binder Will follow
[2017-05-21] MEDS: GABAPENTIN 100 MG CAP PO SCH (12:47)
[2017-05-21] MEDS: CARVEDILOL 25 MG TAB PO SCH ×2 (12:49→20:44)
[2017-05-21] MEDS: SERTRALINE HCL 50 MG TAB PO SCH (12:49)
[2017-05-21] MEDS ORDERED: VANCOMYCIN IV 750 MG in SODIUM CHLORIDE 0.9% 250ML 250 ML IV SCH (14:00)
[2017-05-21] MEDS ORDERED: NURSING VERBAL MED ORDER ONE (16:30)
--- NOTE | 2017-05-21 18:01 | Hospitalist Progress Note ---
Hospitalist Progress Note Date of Service May 21, 2017. (Sandra Riddle ., RAMIRO) Subjective Pt evaluation today including: conversation w/ patient, physical exam, chart review, lab review, review of inpatient medication list Voiding: no voiding problems Mr. Clay continues to have leg pain though with some improvement. He otherwise feels at his baseline. ROS Constitutional: no chills, aches, sweats or fever Respiratory: no sob,cough, sputum, or wheezing Cardiac: no chest pain, palpitations, edema, orthopnea or lightheadedness GI: no abdominal pain, nausea, vomiting, diarrhea or constipation : no dysuria or hesitancy Extremities: no joint pain or weakness Skin: no rash All other systems reviewed and negative (Sandra Riddle CRNP) Medications Medications Administered Medications (Trade) Dose Ordered Sig/Moises Route Start Time Stop Time Status Last Admin Dose Admin Lidocaine HCl (Lidocaine 2% 20MG/Ml Syringe) 100 mg STK-MED ONCE IV 05/13/17 23:22 05/13/17 23:23 DC 05/13/17 23:22 100 MG Albuterol Sulfate (Ventolin 0.5% 2.5MG/0.5ML Neb) 7.5 mg STK-MED ONCE INH 05/13/17 23:28 05/13/17 23:29 DC 05/13/17 23:47 7.5 MG Albuterol Sulfate (Ventolin 0.083% 2.5MG/3ML Neb) 2.5 mg STK-MED ONCE INH 05/13/17 23:28 05/13/17 23:29 DC 05/13/17 23:47 2.5 MG Insulin Human Regular (novoLIN-R U-100 PER UNIT) 10 units NOW STAT IV 05/13/17 23:38 05/13/17 23:42 DC 05/13/17 23:45 10 UNITS Dextrose (Dextrose 50% 50ML Syringe) 50 ml NOW STAT IV 05/13/17 23:38 05/13/17 23:42 DC 05/13/17 23:45 50 ML Fentanyl Citrate (Fentanyl Inj) 50 mcg NOW STAT IV 05/14/17 00:25 05/14/17 00:27 DC 05/14/17 00:33 50 MCG Lorazepam (Ativan Inj) 0.5 mg Q4H PRN IV 05/14/17 00:30 06/13/17 00:29 05/15/17 15:34 0.5 MG Heparin Sodium (Porcine) (No Heparin In Dialysis) 1 ea TODAY@0100 N/A 05/14/17 01:00 05/14/17 23:59 DC 05/14/17 12:09 1 EA Diphenhydramine HCl (Benadryl Inj) 50 mg STK-MED ONCE .ROUTE 05/14/17 01:17 05/14/17 01:18 DC 05/14/17 03:02 50 MG Atorvastatin Calcium (Lipitor Tab) 40 mg QPM PO 05/14/17 21:00 06/13/17 20:59 05/20/17 21:18 40 MG Carvedilol (Coreg Tab) 50 mg BID PO 05/14/17 09:00 05/16/17 15:54 DC 05/15/17 20:01 50 MG Gabapentin (Neurontin Cap) 200 mg QAM PO 05/14/17 09:00 06/13/17 08:59 05/21/17 12:47 200 MG Gabapentin (Neurontin Cap) 300 mg HS PO 05/14/17 21:00 06/13/17 20:59 05/20/17 21:17 300 MG Levothyroxine Sodium (Synthroid Tab) 50 mcg DAILYBB PO 05/14/17 06:00 06/13/17 05:59 05/21/17 04:48 50 MCG Sertraline HCl (Zoloft Tab) 50 mg DAILY PO 05/14/17 09:00 06/13/17 08:59 05/21/17 12:49 50 MG Sevelamer HCl (Renagel Tab) 1,600 mg TIDM PO 05/14/17 07:15 06/13/17 07:59 05/21/17 16:28 1,600 MG Heparin Sodium (Porcine) (Heparin Sq 5000 Unit/0.5ml) 5,000 unit Q8 SQ 05/14/17 09:00 05/19/17 18:50 DC 05/18/17 12:52 5,000 UNIT Hydromorphone HCl (Dilaudid Inj) 0.5 mg STK-MED ONCE .ROUTE 05/14/17 06:51 05/14/17 06:52 DC 05/14/17 06:54 0.25 MG Perflutren Lipid Microsphere (Definity) 2 ml ONE ONCE IV 05/14/17 10:24 05/14/17 10:25 DC 05/14/17 10:25 2 ML Lidocaine (Lidoderm Patch 5%) 1 patch QAM TD 05/15/17 09:00 06/14/17 08:59 05/21/17 08:16 1 PATCH Miscellaneous (Remove Lidoderm Patch) 1 ea DAILY@21 N/A 05/14/17 21:00 06/13/17 20:59 05/20/17 21:16 1 EA Lidocaine (Lidoderm Patch 5%) 1 patch ONE ONCE TD 05/14/17 12:00 05/14/17 12:01 DC 05/14/17 11:57 1 PATCH Hydromorphone HCl (Dilaudid Inj) 0.5 mg ONE ONCE IV 05/14/17 13:36 05/14/17 13:37 DC 05/14/17 13:42 0.5 MG Heparin Sodium (Porcine) (Heparin Iv Bolus) 2,000 unit TODAY IV 05/15/17 08:00 05/15/17 08:01 DC 05/15/17 10:30 2,000 UNIT Heparin Sodium (Porcine) (Heparin Iv Bolus) 500 unit Q1H IV 05/15/17 09:00 05/15/17 10:01 DC 05/15/17 12:30 500 UNIT Lisinopril (Zestril Tab) 40 mg QAM PO 05/15/17 09:00 06/14/17 08:59 Future Hold 05/15/17 14:47 40 MG Oxycodone HCl (Roxicodone Immediate Rel Tab) 5 mg Q4H PRN PO 05/14/17 16:30 05/17/17 18:28 DC 05/17/17 15:09 5 MG Non-Formulary Medication (Non-Formulary Patient'S Own Med) 1 ea DAILY PRN PO 05/14/17 21:45 06/13/17 21:44 05/15/17 21:59 1 EA Morphine Sulfate (MoRPHine SULFATE INJ) 4 mg Q4H PRN IV 05/15/17 01:15 05/15/17 15:52 DC 05/15/17 11:41 4 MG Morphine Sulfate (MoRPHine SULFATE INJ) 4 mg STK-MED ONCE .ROUTE 05/15/17 01:11 05/15/17 01:12 DC 05/15/17 01:14 4 MG Hydromorphone HCl (Dilaudid Inj) 0.5 mg STK-MED ONCE .ROUTE 05/15/17 08:57 05/15/17 08:58 DC 05/15/17 08:57 0.5 MG Diphenhydramine HCl (Benadryl Inj) 25 mg NOW STAT IV 05/15/17 09:47 05/15/17 10:16 DC 05/15/17 10:45 25 MG Hydromorphone HCl (Dilaudid Inj) 0.5 mg Q4H PRN IV 05/15/17 15:45 05/16/17 02:58 DC 05/15/17 20:06 0.5 MG Acetaminophen (Tylenol Tab) 650 mg Q6H PRN PO 05/15/17 17:15 05/19/17 18:50 DC 05/19/17 04:34 650 MG Vancomycin HCl 1250 mg/Sodium Chloride 275 ml @ 125 mls/hr NOW ONCE IV 05/15/17 17:45 05/15/17 19:56 DC 05/15/17 18:52 125 MLS/HR Cefepime HCl 1000 mg/Syringe 11 ml @ 5.5 mls/min TODAY@1800 ONCE IV 05/15/17 18:00 05/15/17 18:01 DC 05/15/17 18:52 5.5 MLS/MIN Sodium Chloride 500 ml @ 125 mls/hr Q4H IV 05/16/17 00:30 05/16/17 04:29 DC 05/16/17 00:55 125 MLS/HR Morphine Sulfate (MoRPHine SULFATE INJ) 4 mg Q6H PRN IV 05/16/17 03:00 05/16/17 15:54 DC 05/16/17 15:40 4 MG Lidocaine (Lidoderm Patch 5%) 1 patch NOW ONCE TD 05/16/17 03:45 05/16/17 03:50 DC 05/16/17 05:03 1 PATCH Miscellaneous (Remove Lidoderm Patch) 1 ea TODAY@1600 N/A 05/16/17 16:00 05/16/17 16:01 DC 05/16/17 16:01 1 EA Carvedilol (Coreg Tab) 25 mg BID PO 05/16/17 09:00 06/15/17 08:59 05/21/17 12:49 25 MG Morphine Sulfate (MoRPHine SULFATE INJ) 2 mg Q6H PRN IV 05/16/17 16:00 05/17/17 18:28 DC 05/17/17 17:03 2 MG Clindamycin Phosphate 54 ml @ 100 mls/hr PREOP IV 05/18/17 06:00 05/18/17 18:00 DC 05/18/17 08:58 100 MLS/HR Hydromorphone HCl (Dilaudid Tab) 2 mg Q3H PRN PO 05/17/17 18:30 05/18/17 02:16 DC 05/17/17 22:29 2 MG Hydromorphone HCl (Dilaudid Inj) 0.5 mg Q2H PRN IV 05/17/17 18:45 05/18/17 02:16 DC 05/17/17 23:27 0.5 MG Hydroxyzine HCl (Vistaril Tab) 50 mg NOW STAT PO 05/18/17 02:14 05/18/17 02:17 DC 05/18/17 02:33 50 MG Morphine Sulfate (MoRPHine SULFATE INJ) 4 mg Q4H PRN IV 05/18/17 02:30 05/19/17 18:50 DC 05/19/17 16:19 4 MG Vancomycin HCl 750 mg/Sodium Chloride 265 ml @ 125 mls/hr AFTER DIALYSIS COMPLETE ONCE IV 05/18/17 13:00 05/18/17 15:07 DC 05/18/17 12:50 125 MLS/HR Lidocaine HCl (Xylocaine 1% Inj (Local)) 2 ml ONE ONCE INJ 05/18/17 09:14 05/18/17 09:36 DC 05/18/17 09:14 2 ML Midazolam HCl (Versed Inj) 1 mg ONE ONCE IV 05/18/17 09:12 05/18/17 09:36 DC 05/18/17 09:12 1 MG Fentanyl Citrate (Fentanyl Inj) 50 mcg ONE ONCE IV 05/18/17 09:22 05/18/17 09:36 DC 05/18/17 09:22 50 MCG Heparin Sodium/ Sodium Chloride (Heparin Sod/Ns 2 Units/Ml) 120 unit ONE ONCE IV 05/18/17 10:06 05/18/17 10:09 DC 05/18/17 10:06 120 UNIT Ioversol (Optiray 300) 45 ml ONE ONCE IV 05/18/17 10:06 05/18/17 10:09 DC 05/18/17 10:06 45 ML Ibuprofen (Motrin Tab) 600 mg TID PRN PO 05/18/17 15:00 05/19/17 18:50 DC 05/19/17 04:34 600 MG Diphenhydramine HCl (Benadryl Syrup) 25 mg ONE ONCE PO 05/18/17 19:15 05/18/17 19:16 DC 05/18/17 19:32 25 MG Morphine Sulfate (MoRPHine SULFATE INJ) 2 mg Q4H PRN IV 05/18/17 22:30 05/19/17 18:50 DC 05/19/17 12:27 2 MG Senna (Senokot Tab) 17.2 mg QAM PO 05/19/17 09:00 06/18/17 08:59 05/20/17 08:16 17.2 MG Hydromorphone HCl (Dilaudid Inj) 0.5 mg NOW STAT IV 05/19/17 14:05 05/19/17 14:07 DC 05/19/17 14:13 0.5 MG Aztreonam 500 mg/ Dextrose 105 ml @ 100 mls/hr Q8H IV 05/20/17 04:00 07/01/17 03:59 05/21/17 12:47 100 MLS/HR Acetaminophen (Tylenol Tab) 1,000 mg Q8 PO 05/19/17 22:00 06/18/17 21:59 05/21/17 12:48 1,000 MG Ibuprofen (Motrin Tab) 600 mg TID PO 05/19/17 20:00 05/21/17 19:59 05/21/17 12:48 600 MG Hydromorphone HCl (Dilaudid Inj) 0.5 mg Q4H PRN IV 05/19/17 19:00 05/20/17 08:52 DC 05/20/17 08:15 0.5 MG Aztreonam 1000 mg/ Dextrose 110 ml @ 100 mls/hr TODAY@2000 IV 05/19/17 20:00 05/19/17 22:00 DC 05/19/17 20:05 100 MLS/HR Oxycodone HCl (Roxicodone Immediate Rel Tab) 5 mg Q4H PRN PO 05/20/17 09:00 06/03/17 08:59 05/21/17 11:19 5 MG Hydromorphone HCl (Dilaudid Inj) 0.5 mg Q3H PRN IV 05/20/17 11:00 05/21/17 16:36 DC 05/21/17 13:35 0.5 MG Vancomycin HCl 750 mg/Sodium Chloride 265 ml @ 125 mls/hr TODAY@1400 IV 05/21/17 14:00 05/21/17 16:08 DC 05/21/17 13:56 125 MLS/HR (Sandra Riddle, RAMIRO) Objective Vital Signs Date Time Temp Pulse Resp B/P (MAP) Pulse Ox O2 Delivery O2 Flow Rate FiO2 05/21/17 16:00 Room Air 05/21/17 15:52 36.7 93 14 128/89 (102) 100 Room Air 05/21/17 12:56 Room Air 05/21/17 12:52 36.5 100 142/85 (104) 05/21/17 12:15 101 164/83 05/21/17 12:00 100 165/90 05/21/17 11:45 99 168/91 05/21/17 11:42 36.4 98 14 164/90 (114) 100 Room Air 05/21/17 11:30 98 170/90 05/21/17 11:15 99 164/90 05/21/17 11:00 95 130/82 05/21/17 10:45 95 152/81 05/21/17 10:30 92 146/82 05/21/17 10:15 95 138/80 05/21/17 10:00 90 148/76 05/21/17 09:45 90 122/74 05/21/17 09:30 83 141/78 05/21/17 09:22 86 144/75 05/21/17 09:22 36.5 86 144/75 (98) 05/21/17 08:00 Room Air 05/21/17 07:20 36.4 85 18 130/74 (92) 100 Room Air 05/21/17 04:00 95 Room Air 05/21/17 03:33 36.4 82 18 126/81 (96) 96 05/21/17 00:13 36.9 91 18 157/91 (113) 100 05/20/17 23:59 95 Room Air 05/20/17 20:00 95 Room Air 05/20/17 19:19 36.5 85 18 125/74 (91) 95 Room Air (Sandra Riddle CRNP) Physical Exam Notes: General: no distress Eyes: normal inspection, PERLL Respiratory: chest non tender, clear to auscultation, normal breath sounds, no respiratory distress, no accessory muscle use Cardiac: regular rate and rhythm, no rub or gallop, no murmur, no edema, no jvd GI/: active bowel sounds, no abd pain or tenderness, soft, non distended Extremities: normal range of motion, normal strength, tender right lower leg Neuro/Psych: alert and oriented x 3, normal mood and affect Skin: normal color, dry (Sandra Riddle CRNP) Laboratory Results Last 24 Hours Test 05/21/17 05:39 White Blood Count 5.25 K/uL Red Blood Count 3.19 M/uL Hemoglobin 10.2 g/dL Hematocrit 30.4 % Mean Corpuscular Volume 95.3 fL Mean Corpuscular Hemoglobin 32.0 pg Mean Corpuscular Hemoglobin Concent 33.6 g/dl RDW Standard Deviation 55.0 fL RDW Coefficient of Variation 15.9 % Platelet Count 138 K/uL Mean Platelet Volume 9.8 fL Sodium Level 136 mmol/L Potassium Level 5.0 mmol/L Chloride Level 104 mmol/L Carbon Dioxide Level 17 mmol/L Anion Gap 15.0 mmol/L Blood Urea Nitrogen 55 mg/dl Creatinine 10.80 mg/dl Est Creatinine Clear Calc Drug Dose 9.8 ml/min Estimated GFR () 7.0 Estimated GFR (Non- 6.0 BUN/Creatinine Ratio 5.1 Random Glucose 97 mg/dl Calcium Level 8.5 mg/dl (Sandra Riddle CRNP) Assessment and Plan 22 y/o M with complex history including membranous glomerulonephropathy - ESRD since age 16, ascending aortic dissection 02/11, HTN, hypothyroid, previous episodes of critical hyperkalemia requiring emergent dialysis. 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 EMS was alerted. On arrival to the pt's house it was reported that he was hypotensive and bradycardic, initially requiring pacing. On arrival to the ER, an EKG displayed wide-complex tachycardia. Initially it was thought that this was VT, however, an iSTAT K came back at 9.0 and the EKG therefore may have represented sine waves. The pt was provided with Calcium gluconate, bicarb, insulin/D50. Nephrology was notified to request emergent dialysis. ESRD/hyperK / Vtach - symptomatic on admission, initially with bradycardia then wide complex tachycardia - likely sine waves. EKG largely normalized following treatment for hyperK. Emergent dialysis given. K today is 5.0 today - dialysis today - nephrology consulted - they had concern about fistula and ordered an US which showed improved thrombus. Vascular surgery consulted and they will took him to the OR 05/18 for fistulogram and stents x 3 - consulted cardiology about ICD placement given that this is his second episode of dysrhythmia due to hyperkalemia - they do not feel this is necessary , focus should be on maintaining normal potassium levels - Sinus tachycardia has improved - 90s-100 on the monitor - repeat prp in am HTN/ hypotension - continue lisinopril and coreg - blood pressures low normal Sepsis of unknown origin/ persistent right leg pain s/p IO, infection? - patient was febrile 05/15 evening, hypotensive over the night - femoral line discontinued - blood cultures from the line were positive but likely contaminant as one vial was coag neg staph - procalcitonin was marginally elevated and trended up, c reactive protein and sed rate mildly elevated . - continue vancomycin, aztreonam - cpk has not trended up, patient does not have paresthesias, pedal pulses palpable and pain has persisted for a week at this point - not likely compartment syndrome. - continue lidocaine patch - oxycodone prn - discontinued dilaudid IV - right tib/fib xray negative for acute process - US lower extremity negative for clot - pain management consulted - MRI of the leg shows - edema/fluid seen primarily surrounding the tibia and extending into the deep fascial planes and a few of the proximal lower leg muscles as described above. There is also anteromedial subcutaneous edema. These findings are nonspecific fasciitis/myositis and could be due to an infectious or possibly a posttraumatic process. No loculated fluid collections at this time to suggest an abscess. - There is also mild nonspecific patchy edema-like marrow signal seen throughout the majority of the tibia. This can also be seen in the setting of an infectious or reactive process. A bone infarct could also have a similar appearance but is considered less likely. - ortho consulted - conservative management for now - repeat MRI - showed slight progression of edema - encouraged to ambulate as patient has not been out bed Hypothyroid - cont Synthroid DC tomorrow if able to go without IV pain meds overnight, ambulates and K is within normal limits Full code DVT proph - heparin subq (Sandra Riddle ., RAMIRO) Attending Note & Attestation - Pt seen/examined, chart reviewed, care plan d/w RAMIRO Riddle. I agree w/ the kennedy components of her progress note. I saw the patient late in the day today. His other was at bedside. He had his clothes on his bed stating "I thought I was going home." Despite such he still had not ambulated today because "it hurts too much on my right leg." During the visit I asked him to ambulate several times tonight and he stated "I' ll walk when I get home." NO new issues. Tele stable overnight. VSS, afebrile gen - looks comfortable neck - JVD present - no change heart - RRR, s1, s2, 2/6 systolic murmur LLSB lungs - CTA b/l abd - soft, NT ext - RLE - cap refill brisk; pos tib pulse 2+, DP pulse 2+ edema of RLE improved I was able to palpate all areas of the RLE from the knee down to the ankle WITHOUT ANY PAIN TODAY A/P: 1. recent wide-complex tachycardia 2nd to critical hyperkalemia - resolved 2. coag neg staph bacteria on blood cx - thought to be contaminant 3. RLE pain - see below 4. HTN - controlled 5. ESRD on HD - appreciate nephrology assistance. s/p HD today; appreciate nephrology assistance 6. malfunctioning LUE AV fistula - s/p fistulogram with stent placement by Dr. Sierra - Appreciate his assistance. 7. DVT proph - heparin BID. #3 - we have suspected some element of infectious process in the leg but it has resolved MRI x 2 with mild muscle swelling - CPK x 2 normal, however he again is clinically improved suspect we can stop IV abx tomorrow am and change to oral abx ortho consult appreciated recommend formal PT eval in am needs to ambulate comfortably before d/c home he and his mother were counseled on this if he can ambulate on Sunday AM he can d/c home Familia Mancilla MD (Familia Mancilla MD)
[2017-05-21] MEDS: GABAPENTIN 300 MG CAP PO SCH (20:43)
[2017-05-21] MEDS: ATORVASTATIN 40 MG TAB PO SCH (20:44)
[2017-05-22] MEDS: OXYCODONE HCL IR 5 MG TAB (IMMEDIATE RELEASE) PO PRN ×3 (02:36→13:09)
[2017-05-22 03:48] VITALS: BP 154/92; PULSE 97; TEMP 37.1; O2SAT 99
[2017-05-22] MEDS: AZTREONAM IV 500 MG in DEXTROSE 5% 100ML 100 ML IV SCH ×2 (04:15→11:28)
[2017-05-22] MEDS: LEVOTHYROXINE 50 MCG TAB PO SCH (05:28)
[2017-05-22] MEDS: ACETAMINOPHEN 500 MG TAB PO SCH ×2 (05:28→13:08)
[2017-05-22 08:00] VITALS: BP 164/97; PULSE 96; TEMP 36.5; O2SAT 100
[2017-05-22] MEDS: SEVELAMER HYDROCH 800 MG TAB PO SCH ×2 (08:23→11:28)
[2017-05-22] MEDS: SENNA 8.6 MG TAB PO SCH (08:24)
[2017-05-22] MEDS: CARVEDILOL 25 MG TAB PO SCH (08:24)
[2017-05-22] MEDS: POLYETHYLENE (MIRALAX) 17 GM PACK PO SCH (08:24)
[2017-05-22] MEDS: GABAPENTIN 100 MG CAP PO SCH (08:24)
[2017-05-22] MEDS: HEPARIN SOD 5000 UNIT/0.5 ML CARP SQ SCH (08:25)
[2017-05-22] MEDS: LIDODERM (LIDOCAINE) PATCH 5% TD SCH (08:25)
[2017-05-22] MEDS: SERTRALINE HCL 50 MG TAB PO SCH (08:28)
[2017-05-22 09:04] LABS: CREATININE 8.31 mg/dl (0.60-1.40)
[2017-05-22 09:05] LABS: CALCIUM 9.4 mg/dl (8.5-10.1); POTASSIUM 3.8 mmol/L (3.5-5.1)
--- NOTE | 2017-05-22 10:00 | Nephrology Progress Note ---
Nephrology Progress Note Date of Service May 22, 2017. Chief Complaint Follow-up for end-stage renal disease on hemodialysis. Hamilton Valle was seen and examined in his room this morning. Continues to have right lower extremity pain, stable. Had dialysis yesterday, uneventful. Currently volume status and blood pressure acceptable. Electrolyte acceptable. Review of Systems A complete review of systems was performed. Pertinent positives are noted above. All other systems are negative. Vital Signs Last 8 Hrs Date Time Temp Pulse Resp B/P (MAP) Pulse Ox O2 Delivery O2 Flow Rate FiO2 05/22/17 04:00 Room Air 05/22/17 03:48 37.1 97 18 154/92 (112) 99 Last Recorded Weight Weight (Kilograms): 62.000 Physical Exam GENERAL: young male,, AAA x 3, pleasant, healthy-appearing, not in any distress. NECK: Supple, no JVD. RESPIRATORY: Normal breathing efforts, no accessory muscle use, clear to auscultation bilaterally, no wheezes or rales. CARDIOVASCULAR: S1, S2 normal, rate rhythm regular. EXTREMITY: No lower extremity edema NEURO: speech fluent. 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 Lives with mother Laboratory Results Past 24 Hours Test 05/22/17 06:33 05/22/17 06:36 Random Vancomycin Level 33.1 mcg/ml Allergies Coded Allergies: Penicillins (Unverified Allergy, Severe, FACE SWELLS, 05/14/17) Amoxicillin (Verified Allergy, Unknown, ?, 05/14/17) Medications Current Inpatient Medications Medications (Trade) Dose Ordered Sig/Moises Route Start Time Stop Time Status Last Admin Dose Admin Lorazepam (Ativan Inj) 0.5 mg Q4H PRN IV 05/14/17 00:30 06/13/17 00:29 05/15/17 15:34 0.5 MG Atorvastatin Calcium (Lipitor Tab) 40 mg QPM PO 05/14/17 21:00 06/13/17 20:59 05/21/17 20:44 40 MG Gabapentin (Neurontin Cap) 200 mg QAM PO 05/14/17 09:00 06/13/17 08:59 05/22/17 08:24 200 MG Gabapentin (Neurontin Cap) 300 mg HS PO 05/14/17 21:00 06/13/17 20:59 05/21/17 20:43 300 MG Levothyroxine Sodium (Synthroid Tab) 50 mcg DAILYBB PO 05/14/17 06:00 06/13/17 05:59 05/22/17 05:28 50 MCG Sertraline HCl (Zoloft Tab) 50 mg DAILY PO 05/14/17 09:00 06/13/17 08:59 05/22/17 08:28 50 MG Miscellaneous Information (Order Awaiting Action) 1 ea QS N/A 05/14/17 08:00 06/13/17 07:59 Sevelamer HCl (Renagel Tab) 1,600 mg TIDM PO 05/14/17 07:15 06/13/17 07:59 05/22/17 08:23 1,600 MG Lidocaine (Lidoderm Patch 5%) 1 patch QAM TD 05/15/17 09:00 06/14/17 08:59 05/22/17 08:25 1 PATCH Miscellaneous (Remove Lidoderm Patch) 1 ea DAILY@21 N/A 05/14/17 21:00 06/13/17 20:59 05/21/17 20:44 1 EA Lisinopril (Zestril Tab) 40 mg QAM PO 05/15/17 09:00 06/14/17 08:59 Future Hold 05/15/17 14:47 40 MG Non-Formulary Medication (Non-Formulary Patient'S Own Med) 1 ea DAILY PRN PO 05/14/17 21:45 06/13/17 21:44 05/15/17 21:59 1 EA Miscellaneous Information (Consult) 1 ea UD PRN N/A 05/15/17 17:15 06/14/17 17:14 Carvedilol (Coreg Tab) 25 mg BID PO 05/16/17 09:00 06/15/17 08:59 05/22/17 08:24 25 MG Senna (Senokot Tab) 17.2 mg QAM PO 05/19/17 09:00 06/18/17 08:59 05/20/17 08:16 17.2 MG Polyethylene (Miralax Powder Packet) 17 gm BID PO 05/19/17 09:00 06/18/17 08:59 Aztreonam 500 mg/ Dextrose 105 ml @ 100 mls/hr Q8H IV 05/20/17 04:00 07/01/17 03:59 05/22/17 04:15 100 MLS/HR Acetaminophen (Tylenol Tab) 1,000 mg Q8 PO 05/19/17 22:00 06/18/17 21:59 05/22/17 05:28 1,000 MG Heparin Sodium (Porcine) (Heparin Sq 5000 Unit/0.5ml) 5,000 unit Q12 SQ 05/19/17 21:00 06/18/17 20:59 Aztreonam (Consult) 1 ea UD PRN N/A 05/19/17 22:30 06/18/17 22:29 Oxycodone HCl (Roxicodone Immediate Rel Tab) 5 mg Q4H PRN PO 05/20/17 09:00 06/03/17 08:59 05/22/17 08:38 5 MG Diphenhydramine HCl (Benadryl Inj) 25 mg DAILY PRN IV 05/20/17 10:15 06/19/17 10:14 Impression (1) Hyperkalemia (2) ESRD on hemodialysis AVF with small area of surrounding ecchymosis suggestive of recent infiltration. 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 Hyperkalemia may be related to recirculation during HD. Fistulogram 05/18/[address] Sierra revealed a long segment of stenosis involving the venous outflow. Patient required stenting x 3. Recommendations -- had hemodialysis yesterday is regular schedule, currently volume status and blood pressure stable. Okay to be discharged, he can have next dialysis as outpatient --avoid IV fluid --will give ZACK with hemodialysis --continue on Nephrocaps and phosphate binder Will follow
--- NOTE | 2017-05-22 11:54 | Pharmacy Progress Note ---
Pharmacy Abx Dose Short Note Date of Service May 22, 2017. Assessment & Plan Assessment 22 year old male receiving Vancomycin for treatment of bacteremia Day # 8 of antimicrobial therapy. Plan Vancomycin * Supplemental dose of 750mg post HD yesterday * Suggest checking post HD random tomorrow, process was dosing of post HD earlier in the admission * Scheduled for HD tomorrow morning. Pharmacy will continue to follow and will adjust dose/frequency as necessary. Thank you.
[2017-05-22 12:00] VITALS: BP 157/96; PULSE 101; TEMP 36.4; O2SAT 94
[2017-05-22] MEDS ORDERED: RXC5 PO (13:07)
[2017-05-22] MEDS ORDERED: CEPH500C2 PO (13:07)
[2017-05-22] MEDS ORDERED: IBUP-1427 PO (13:07)
[2017-05-22] MEDS ORDERED: LDDP5 TD (13:07)
[2017-05-22] MEDS ORDERED: DOXY-300 PO (13:07)
--- NOTE | 2017-05-22 13:18 | Discharge Instructions ---
Discharge Instructions Date of Service May 22, 2017. Admission Reason for Admission: Altered Mental Status, Hyperkalemia Discharge Discharge Diagnosis / Problem: Hyperkalemia, infective myositis Discharge Goals Goal(s): Improve function Activity Recommendations Activity Limitations: resume your previous activity Exercise/Sports Limitations: gradually increase as tolerated . Current Hospital Diet Patient's current hospital diet: Renal Diet Discharge Diet Recommended Diet: Renal Diet Procedures Procedures Performed: Left Upper Extremity Fistulogram Percutaneous Transluminal Angioplasty Venous Stenting peripheral venous of fistula Moderate Sedation [id number] Lower extremity MRI Tibula/fibula x-ray Chest x ray Pending Studies Studies pending at discharge: no Medical Emergencies . Who to Call and When: Medical Emergencies: If at any time you feel your situation is an emergency, please call 911 immediately. . Non-Emergent Contact Non-Emergency issues call your: Primary Care Provider Call Non-Emergent contact if: you have any medication questions . . "Provider Documentation" section prepared by Sandra Riddle. .
--- NOTE | 2017-05-22 13:41 | Discharge Summary ---
Discharge Summary Date of Service May 22, 2017. Discharge Summary Admission Date: May 14, 2017 at 00:31 Discharge Date: May 22, 2017 Discharge Disposition: Home with services Principal Diagnosis: Hyperkalemia with resulting transient shock & wide- complex tachycardia Problems/Secondary Diagnoses: 1. wide complex tachycardia due to critical hyperkalemia 2. ESRD on HD M/W/F 3. depression 4. h/o aortic dissection s/p repair - [facility] 5. h/o left LE compartment syndrome s/p fasciotomy 6. hypothyroidism 7. RLE pain s/p IO insertion due to critical hyperkalemia - cause of RLE Pain uncertain - infectious process vs myositis vs other - slowly resolving 8. neuropathy 9. sepsis, possibly due to #7 - resolved 10. h/o membranous glomerulonephritis Immunizations: Have You Had Influenza Vaccine: Unknown History of Tetanus Vaccine?: Unknown History of Pneumococcal: Unknown History of Hepatitis B Vaccine: Unknown Procedures: 1. MRI RLE ( x 2 ) - IMPRESSION: 1. No fractures identified within the right lower leg. 2. Edema/fluid seen primarily surrounding the tibia and extending into the deep fascial planes and a few of the proximal lower leg muscles as described above. There is also anteromedial subcutaneous edema. These findings are nonspecific fasciitis/myositis and could be due to an infectious or possibly a posttraumatic process. No loculated fluid collections at this time to suggest an abscess. 3. There is also mild nonspecific patchy edema-like marrow signal seen throughout the majority of the tibia. This can also be seen in the setting of an infectious or reactive process. A bone infarct could also have a similar appearance but is considered less likely. 2. right femoral vein CVC 3. IO insertion - right tibia 4. RLE venous duplex study neg for DVT 5. LUE vascular surgery by Brian Sierra MD - 1. Fistulogram. 2. Balloon angioplasty of cephalic fistula with 6 x 60 and 10 x 60 balloon. 3. Stenting of proximal stenosis with a 10 x 40 mm bare metal stent. 4. Stenting of distal with 14 x 60 bare metal stent. 5. Stenting of the mid portion of the previous stents with 14 x 30 mm stents as a bridge. 6. Duplex study of LUE fistula - IMPRESSION: 1. The fistula of the left arm remains patent. 2. The amount of thrombus within the fistula is diminished 3. No current evidence for a high-grade stenosis. 7. echocardiogram - * -- Conclusions -- * 1. Normal left ventricular size with low-normal systolic function. EF 50-55% . [place] not well visualized, otherwise wall motion appeared normal. Moderate concentric left ventricular hypertrophy. * 2. Mildly dilated right ventricle with mildly reduced systolic function. * 3. Mild, eccentric aortic regurgitation. * 4. Mild mitral regurgitation. * 5. Mildly dilated aortic root. * 6. Pleural effusion. * 7. Normal estimated right ventricular systolic pressure; 29mmHg. * 8. Technically difficult study, enhanced with IV Definity. * 9. Compared to prior study on 02/27/2016, Type A aortic dissection is no longer visualized. Pericardial effusion has resolved. LV systolic function has improved. Consultations: Dr. King and Lisa from nephrology Dr. García from ID Dr. Sierra from vascular surgery Dr. Blackburn from orthopedics Dr. Anne from pain management Dr. Hess from cardiology critical care PT, OT Medication Reconciliation New Medications: Cephalexin Monohydrate (Keflex) 500 Mg Cap 500 MG PO DAILY for 10 Days, #10 CAP take dose after dialysis Doxycycline (Monohydrate) (Doxycycline) 100 Mg Cap 100 MG PO BID for 10 Days, #20 CAP Ibuprofen Tab (Motrin) 600 Mg Tab 1 TAB PO TID for 10 Days, #30 TAB Oxycodone HCl (Oxycodone HCl) 5 Mg Tab 5 MG PO BID for 5 Days, #10 TAB Lidocaine (Lidocaine) 1 Patch Tdsy 1 PATCH TD QAM for 14 Days, #14 PATCH Continued Medications: Atorvastatin (Lipitor) 40 Mg Tab 40 MG PO QPM, TAB Carvedilol (Coreg) 25 Mg Tab 25 MG PO BID for 30 Days Cholecalciferol (Vitamin D3) 1,000 Unit Tab 1 TAB PO DAILY, TAB 3 Refills Ferric Citrate (Auryxia) 210 Mg Tab 420 MG PO TIDM Gabapentin (Neurontin) 100 Mg Cap 200 MG PO QAM Gabapentin (Neurontin) 300 Mg Cap 300 MG PO HS, CAP Levothyroxine Sodium (Levothyroxine Sodium) 50 Mcg Tab 50 MCG PO QAM, TAB Lisinopril (Zestril) 40 Mg Tab 40 MG PO DAILY, TAB Nortriptyline (Pamelor) 50 Mg Cap 50 MG PO DAILY PRN for UNDECIDED Sertraline (Zoloft) 50 Mg Tab 50 MG PO DAILY Sevelamer Carbonate (Renvela) 800 Mg Tab 1600 MG PO TIDM Sevelamer Carbonate (Renvela) 800 Mg Tab 800 MG PO DAILY PRN for With a Snack Discharge Exam ROS Constitutional: no chills, aches, sweats or fever Respiratory: no sob,cough, sputum, or wheezing Cardiac: no chest pain, palpitations, edema, orthopnea or lightheadedness GI: no abdominal pain, nausea, vomiting, diarrhea or constipation : no dysuria or hesitancy Extremities: lower extremity pain on right Skin: no rash All other systems reviewed and negative PE General: no distress Eyes: normal inspection, PERLL Respiratory: chest non tender, clear to auscultation, normal breath sounds, no respiratory distress, no accessory muscle use Cardiac: regular rate and rhythm, no rub or gallop, no murmur, no edema, no jvd GI/: active bowel sounds, no abd pain or tenderness, soft, non distended Extremities: normal range of motion, normal strength, right lower extremity tender to palpation Neuro/Psych: alert and oriented x 3, flat affect Skin: normal color, dry Hospital Course 22 y/o M with complex history including membranous glomerulonephropathy - ESRD since age 16, ascending aortic dissection 02/11, HTN, hypothyroid, previous episodes of critical hyperkalemia requiring emergent dialysis. The pt reported nausea, vomiting and weakness [employer] which progressed to somnolence. EMS was alerted. On arrival to the pt's house it was reported that he was hypotensive and bradycardic, initially requiring pacing. On arrival to the ER, an EKG displayed wide-complex tachycardia. Initially it was thought that this was VT, however, an iSTAT K came back at 9.0 and the EKG therefore may have represented sine waves. The pt was provided with Calcium gluconate, bicarb, insulin/D50. Nephrology was notified to request emergent dialysis. ESRD/hyperK / Vtach - symptomatic on admission, initially with bradycardia then wide complex tachycardia - likely sine waves. EKG largely normalized following treatment for hyperK. Emergent dialysis given. K today is 3.8 today - dialysis today - nephrology consulted - they had concern about fistula and ordered an US which showed improved thrombus. Vascular surgery consulted and they will took him to the OR 05/18 for fistulogram and stents x 3 - consulted cardiology about ICD placement given that this is his second episode of dysrhythmia due to hyperkalemia - they do not feel this is necessary , focus should be on maintaining normal potassium levels - Sinus tachycardia has improved - 90s-100 on the monitor - patient for outpatient dialysis tomorrow HTN/ hypotension - continue lisinopril and coreg - blood pressures low normal Sepsis of unknown origin/ persistent right leg pain s/p IO, infection? - patient was febrile 05/15 evening, hypotensive over the night - femoral line discontinued - blood cultures from the line were positive but likely contaminant as one vial was coag neg staph - procalcitonin was marginally elevated and trended up, c reactive protein and sed rate mildly elevated . -given vancomycin, aztreonam - will change to doxycycline and keflex for home - cpk has not trended up, patient does not have paresthesias, pedal pulses palpable and pain has persisted for a week at this point - not likely compartment syndrome. - continue lidocaine patch - oxycodone prn - discontinued dilaudid IV - right tib/fib xray negative for acute process - US lower extremity negative for clot - pain management consulted - MRI of the leg shows - edema/fluid seen primarily surrounding the tibia and extending into the deep fascial planes and a few of the proximal lower leg muscles as described above. There is also anteromedial subcutaneous edema. These findings are nonspecific fasciitis/myositis and could be due to an infectious or possibly a posttraumatic process. No loculated fluid collections at this time to suggest an abscess. - There is also mild nonspecific patchy edema-like marrow signal seen throughout the majority of the tibia. This can also be seen in the setting of an infectious or reactive process. A bone infarct could also have a similar appearance but is considered less likely. - ortho consulted - conservative management - repeat MRI - showed slight progression of edema - PT/OT recommended home Hypothyroid - cont Synthroid Attending Attestation - Pt seen/examined, chart reviewed, care plan d/w RAMIRO Riddle. I agree w/ the kennedy components of her documentation/discharge summary. 22yo male with ESRD on HD M/W/F and previous renal transplant status s/p rejection along with h/o type A aortic dissection repair who presented with critical hyperkalemia that initially led to transient hypotension and bradycardia. He required pacing pre-hospitalization but [facility] found to be in a wide-complex tachycardia. At that time critical hyperkalemia was found requiring emergent placement of IO in his right tibia with administration of sodium bicarbonate therapy, calcium, etc. He was subsequently admitted to the ICU for further work-up and treatment. Ultimately it was found that his left arm AV fistula had malfunctioned leading to the hyperkalemia despite compliance w/ recent HD treatments. He underwent fistulogram and treatment of stenotic areas of his fistula by Dr. Brian Sierra. For the remainder of his stay he had normal potassium levels and received HD without incident. His stay was complicated by suspected sepsis, perhaps due to a RLE infectious process. The patient had severe pain of the RLE following IO insertion. He underwent MRI x 2 without obvious osteomyelitis, abscess, or a fascitis. Compartment syndrome was not suspected. He had nonspecific swelling of multiple muscles of the RLE. Uncertain if this represented myositis however his CPKs were normal. He received several days of IV antibiotic therapy, transitioning to keflex/ doxycycline at discharge. He was seen by orthopedics who recommended symptomatic care of the RLE. He will f/u with orthopedics after discharge for recheck of the RLE. His swelling/pain of the RLE gradually improved while here but [id number] had difficulties ambulating because of pain in the RLE. He was seen by PT/OT who cleared him for home with use of crutches, etc to assist with mobility. 1 blood culture showed gram positive cocci but was felt to represent contamination. All other blood cultures were negative. He appears to have severe depression but refuses to attend counseling. Counseling was strongly encouraged. Discharge exam - gen - flat affect, depressed, NAD neck - unchanged JVD heart - RRR, s1, s2, 2/6 LUIS MIGUEL LSB lungs - CTA bl abd - numerous scars, BS+, NT, ND, BS+ ext - right leg - able to passively move the right hip w/o tenderness; right knee w/o effusion or warmth; right tibia with mild tenderness to palpation ( over the bone itself) and over various muscles of the LE; no obvious cellulitis ; scant warmth of the RLE; minimal edema of RLE; pulses right foot 2+; cap refill brisk; LLE with previous surgical scar on aranda; pulses left foot 2+ right ankle - I am able to passively move the ankle without significant pain; no joint fluid Familia Mancilla MD Total Time Spent: Greater than 30 minutes This includes examination of the patient, discharge planning, medication reconciliation, and communication with other providers. Discharge Instructions Please refer to the electronic Patient Visit Report (Discharge Instructions) for additional information. Follow-Up 1. Dr. Vidal Blackburn - [facility] - on May 31 at 11:30 am 2. Dialysis in [place] - [facility], 05/23/17 3. within [address] Lebron Chu Additional Copies To Chong Blackburn D.O.; Lebron Chu D.O.; GAGE PEPE D.O.
--- NOTE | 2017-05-22 15:21 | Infectious Disease Progress Nt ---
Progress Note Date of Service May 22, 2017. Subjective Pt evaluation today including: conversation w/ patient, physical exam, chart review, lab review, review of studies, conversation w/ cloud consultant, review of inpatient medication list No new complaints today. Remains afebrile. Still with significant right leg pain. MRI scan, read by me, shows slight progression marrow edema. All Other Systems: Reviewed and Negative Medications Current Inpatient Medications Medications (Trade) Dose Ordered Sig/Moises Route Start Time Stop Time Status Last Admin Dose Admin Lorazepam (Ativan Inj) 0.5 mg Q4H PRN IV 05/14/17 00:30 06/13/17 00:29 05/15/17 15:34 0.5 MG Atorvastatin Calcium (Lipitor Tab) 40 mg QPM PO 05/14/17 21:00 06/13/17 20:59 05/21/17 20:44 40 MG Gabapentin (Neurontin Cap) 200 mg QAM PO 05/14/17 09:00 06/13/17 08:59 05/22/17 08:24 200 MG Gabapentin (Neurontin Cap) 300 mg HS PO 05/14/17 21:00 06/13/17 20:59 05/21/17 20:43 300 MG Levothyroxine Sodium (Synthroid Tab) 50 mcg DAILYBB PO 05/14/17 06:00 06/13/17 05:59 05/22/17 05:28 50 MCG Sertraline HCl (Zoloft Tab) 50 mg DAILY PO 05/14/17 09:00 06/13/17 08:59 05/22/17 08:28 50 MG Miscellaneous Information (Order Awaiting Action) 1 ea QS N/A 05/14/17 08:00 06/13/17 07:59 Sevelamer HCl (Renagel Tab) 1,600 mg TIDM PO 05/14/17 07:15 06/13/17 07:59 05/22/17 11:28 1,600 MG Lidocaine (Lidoderm Patch 5%) 1 patch QAM TD 05/15/17 09:00 06/14/17 08:59 05/22/17 08:25 1 PATCH Miscellaneous (Remove Lidoderm Patch) 1 ea DAILY@21 N/A 05/14/17 21:00 06/13/17 20:59 05/21/17 20:44 1 EA Lisinopril (Zestril Tab) 40 mg QAM PO 05/15/17 09:00 06/14/17 08:59 Future Hold 05/15/17 14:47 40 MG Non-Formulary Medication (Non-Formulary Patient'S Own Med) 1 ea DAILY PRN PO 05/14/17 21:45 06/13/17 21:44 05/15/17 21:59 1 EA Miscellaneous Information (Consult) 1 ea UD PRN N/A 05/15/17 17:15 06/14/17 17:14 Carvedilol (Coreg Tab) 25 mg BID PO 05/16/17 09:00 06/15/17 08:59 05/22/17 08:24 25 MG Senna (Senokot Tab) 17.2 mg QAM PO 05/19/17 09:00 06/18/17 08:59 05/20/17 08:16 17.2 MG Polyethylene (Miralax Powder Packet) 17 gm BID PO 05/19/17 09:00 06/18/17 08:59 Aztreonam 500 mg/ Dextrose 105 ml @ 100 mls/hr Q8H IV 05/20/17 04:00 07/01/17 03:59 05/22/17 04:15 100 MLS/HR Acetaminophen (Tylenol Tab) 1,000 mg Q8 PO 05/19/17 22:00 06/18/17 21:59 05/22/17 13:08 1,000 MG Heparin Sodium (Porcine) (Heparin Sq 5000 Unit/0.5ml) 5,000 unit Q12 SQ 05/19/17 21:00 06/18/17 20:59 Aztreonam (Consult) 1 ea UD PRN N/A 05/19/17 22:30 06/18/17 22:29 Oxycodone HCl (Roxicodone Immediate Rel Tab) 5 mg Q4H PRN PO 05/20/17 09:00 06/03/17 08:59 05/22/17 13:09 5 MG Diphenhydramine HCl (Benadryl Inj) 25 mg DAILY PRN IV 05/20/17 10:15 06/19/17 10:14 Objective Vital Signs Date Time Temp Pulse Resp B/P (MAP) Pulse Ox O2 Delivery O2 Flow Rate FiO2 05/22/17 12:00 36.4 101 16 157/96 (116) 94 Room Air 05/22/17 12:00 Room Air 05/22/17 08:00 Room Air 05/22/17 08:00 36.5 96 16 164/97 (119) 100 Room Air 05/22/17 04:00 Room Air 05/22/17 03:48 37.1 97 18 154/92 (112) 99 05/21/17 23:59 Room Air 05/21/17 23:49 37.2 98 18 161/85 (110) 97 05/21/17 20:00 Room Air 05/21/17 19:44 36.8 92 18 152/91 (111) 100 Room Air 05/21/17 16:00 Room Air 05/21/17 15:52 36.7 93 14 128/89 (102) 100 Room Air Physical Exam General Appearance: WD/WN, no apparent distress Eyes: normal inspection, EOMI, sclerae normal ENT: normal ENT inspection, pharynx normal Neck: supple, no adenopathy, thyroid normal, trachea midline Respiratory/Chest: chest non-tender, lungs clear, normal breath sounds, no respiratory distress Cardiovascular: regular rate, rhythm, no gallop, no murmur Abdomen: normal bowel sounds, non tender, soft, no organomegaly Extremities: non-tender, no calf tenderness Neurologic/Psychiatric: alert, oriented x 3 Skin: normal color, warm/dry, no rash Lymphatic: no adenopathy Laboratory Results RUN DATE: 05/22/17 [facility] LAB PAGE 1 RUN TIME: 705 Specimen Inquiry PATIENT: ENRICO PEREZ LOC: Brian # : [id number] AGE/SX: 22/M ROOM: [facility] REG : 05/14/[address]: Familia Mancilla MD : 1995 BED: 1 DIS : STATUS: ADM IN TLOC: SPEC #: [id number] GAY: 05/16/17 STATUS: COMP REQ #: [id number] RECD: 05/16/[address]: Roseanne Ross MD SOURCE: BLOOD ENTR: 05/16/17-163 [facility] DR: Isaac García MD SPDESC: Lebron Chu D.O. Donelan, Stephen M., M.D. Gilbert, Jennifer L., Alfredito Hardin M.D. Nydegger, Charles C M.D. Shippert, Brian W., D.O. Sensiba, Paul R., M.D. Simoni, Eugene J., M.D. ORDERED: BLOOD CULTURE Procedure Result Verified Site BLD CULT Final 05/22/17-0706 NO GROWTH Last 24 Hours Test 05/22/17 06:33 05/22/17 06:36 Sodium Level 131 mmol/L Potassium Level 3.8 mmol/L Chloride Level 96 mmol/L Carbon Dioxide Level 26 mmol/L Anion Gap 9.0 mmol/L Blood Urea Nitrogen 44 mg/dl Creatinine 8.31 mg/dl Est Creatinine Clear Calc Drug Dose 12.3 ml/min Estimated GFR () 9.6 Estimated GFR (Non- 8.3 BUN/Creatinine Ratio 5.2 Random Glucose 108 mg/dl Calcium Level 9.4 mg/dl Random Vancomycin Level 33.1 mcg/ml Assessment and Plan (1) Hypotension (2) Hyperglycemia (3) Wide-complex tachycardia (4) Altered mental status (5) Hyperkalemia (6) ESRD on hemodialysis 22-year-old male with end-stage renal disease on dialysis admitted hyperkalemia with hypertension and arrhythmia, with transient fever and positive blood culture, 1 bottle, positive for coagulase negative Staph. Now status post fistulogram and stenting of malfunctioning dialysis access. Follow-up blood cultures remain negative, suggesting that original blood culture represented contaminant. No obvious evidence of leg infection. Would consider following patient off antibiotics. For discharge today.
[2017-05-22 15:56] VITALS: BP 157/96; PULSE 101; TEMP 36.4; O2SAT 94
== END 2017-05-22 18:01 | disposition home or self-care (01) | DRG 981 ==
LOC: EDBD 23:15 → C.EDA 23:17 → C.MSICU 05-14 00:31 → UNDOADMIN 05-14 00:31 → ENRESERV 05-14 00:36 → C.2E 05-15 09:28
PROVIDERS: ADMIT Internal Medicine; ATTEND Internal Medicine
PROC: 057Y3DZ Dilation of Upper Vein with Intraluminal Device, Percutaneous Approach (ICD-10-PCS; principal; 2017-05-18 11:30)
DX: E87.5 Hyperkalemia (principal); N18.6 End stage renal disease; A41.9 Sepsis, unspecified organism; Z94.0 Kidney transplant status; I12.0 Hypertensive chronic kidney disease with stage 5 chronic kidney disease or end stage renal disease; T82.868A Thrombosis due to vascular prosthetic devices, implants and grafts, initial encounter; I47.2 Ventricular tachycardia; M86.9 Osteomyelitis, unspecified; E11.9 Type 2 diabetes mellitus without complications; I95.9 Hypotension, unspecified; I49.8 Other specified cardiac arrhythmias; Z88.1 Allergy status to other antibiotic agents; Z88.0 Allergy status to penicillin; Z99.2 Dependence on renal dialysis; Y84.8 Other medical procedures as the cause of abnormal reaction of the patient, or of later complication, without mention of misadventure at the time of the procedure; Z80.9 Family history of malignant neoplasm, unspecified; Z82.49 Family history of ischemic heart disease and other diseases of the circulatory system

== ENCOUNTER 2017-05-25 06:25 | Emergency (ER) | payer OTHER ==
[~2017-05-25] VITALS: Ht 170.2 cm; Wt 58.7 kg
[~2017-05-25 06:25] MED LIST changes: +ATOR-24 PO; +CEPH500C2 PO; +CHOL1000 PO; +DOXY-300 PO; +IBUP-1427 PO; +LDDP5 TD; +LISI40TA PO; -LSN20 PO; -OXYC-106 PO; +RXC5 PO; -SALI0.6510; -TRIA1SPR4 NAE
[2017-05-25 06:41] VITALS: Ht 170.2 cm; Wt 58.7 kg
--- NOTE | 2017-05-25 07:10 | EMERGENCY ROOM VISIT NOTE ---
History Report prepared by Anthony: Michelle Mayes Under the Supervision of: Dr. Cabrera Kraft M.D. First contact with patient: 06:41 Chief Complaint: LEG PAIN,LEG INJURY Stated Complaint: LEG PAIN History of Present Illness The patient is a 22 year old male who presents to the Emergency Room with complaints of constant leg pain beginning two days ago. The patient has kidney disease. He reports he came in with high potassium and had to get drilled in his leg. He reports he has been having leg pain since the procedure. The patient has been out of the hospital for two days. He reports the hospital staff was away of his leg pain when he was discharged from the hospital. The patient states he ran out of pain medication today. The patient has dialysis MWF in [place]. The patient reports he was at dialysis this morning and was sent to the ED for a low hemoglobin to get a blood transfusion done. The patient is not on any blood thinners. He denies any rectal bleeding. Source of History: patient Onset: two days ago Position: leg (bilateral) Quality: other (pain) Timing: constant Review of Systems See HPI for pertinent positives & negatives. A total of 10 systems reviewed and were otherwise negative. 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 Nurse's notes were reviewed and I agree with. Family History Cancer Hypertension Social History Smoking Status: Never Smoker Alcohol Use: none Drug Use: none Marital Status: single Housing Status: lives with family Occupation Status: student Current/Historical Medications Scheduled Atorvastatin (Lipitor), 40 MG PO QPM Carvedilol (Coreg), 25 MG PO BID Cephalexin Monohydrate (Keflex), 500 MG PO DAILY Cholecalciferol (Vitamin D3), 1 TAB PO DAILY Doxycycline (Monohydrate) (Doxycycline), 100 MG PO BID Ferric Citrate (Auryxia), 420 MG PO TIDM Gabapentin (Neurontin), 200 MG PO QAM Gabapentin (Neurontin), 300 MG PO HS Ibuprofen Tab (Motrin), 1 TAB PO TID Levothyroxine Sodium (Levothyroxine Sodium), 50 MCG PO QAM Lidocaine (Lidocaine), 1 PATCH TD QAM Lisinopril (Zestril), 40 MG PO DAILY Oxycodone HCl (Oxycodone HCl), 5 MG PO BID Sertraline (Zoloft), 50 MG PO DAILY Sevelamer Carbonate (Renvela), 1,600 MG PO TIDM Scheduled PRN Nortriptyline (Pamelor), 50 MG PO DAILY PRN for UNDECIDED Oxycodone Immediate Rel Tab (Roxicodone Ir), 1-2 TAB PO Q4H PRN for Severe Pain Sevelamer Carbonate (Renvela), 800 MG PO DAILY PRN for With a Snack Allergies Coded Allergies: Penicillins (Unverified Allergy, Severe, FACE SWELLS, 05/25/17) Amoxicillin (Verified Allergy, Unknown, ?, 05/25/17) Physical Exam Vital Signs Date Time Temp Pulse Resp B/P (MAP) Pulse Ox O2 Delivery O2 Flow Rate FiO2 05/25/17 09:05 98 18 155/93 95 05/25/17 06:41 99 15 154/78 98 Room Air 05/25/17 06:40 103 Physical Exam General:Chronically-ill appearing young male in no acute distress. HEENT: Normal cephalic atraumatic. Pupils are equal round and reactive to light. Extraocular movements are intact. Oropharynx is pink with moist mucous membranes. No swelling of the mouth lips or tongue. Neck: Supple with a midline trachea. No meningeal signs or stiffness, no JVD or bruits. No Stridor. Chest: Clear to auscultation bilaterally. No wheezes or rhonchi. No increased work of breathing. Heart: regular rate and rhythm. Abdomen: Soft nontender, nondistended without rebound guarding or rigidity. Extremities: Scars on left lower leg from isabella fasciotomy, right leg with minimal tenderness and swelling, no redness, sensation intact. Spine/Back. Non tender to palpation. No CVA tenderness Skin: Good turgor without rashes. Neurologic exam: Cranial nerves two through 12 are intact. Motor and sensation are intact and symmetrical throughout. Medical Decision & Procedures ER Provider Diagnostic Interpretation: Radiology results as stated below per my review and radiologist interpretation: R TIBIA/FIBULA 2 VIEWS ROUTINE DISCUSSION: The bones and joint spaces appear intact. There is no evidence of fracture, dislocation or bony disease. There is no evidence for soft tissue swelling. IMPRESSION: Negative study. No change from the prior exam. The above report was generated using voice recognition software. It may contain grammatical, syntax or spelling errors. Electronically signed by: Gary Chun M.D. Laboratory Results 05/25/17 07:01 Red Blood Count 3.69, Mean Corpuscular Volume 93.8, Mean Corpuscular Hemoglobin 32.0, Mean Corpuscular Hemoglobin Concent 34.1, Mean Platelet Volume 9.2, Neutrophils (%) (Auto) 59.2, Lymphocytes (%) (Auto) 21.7, Monocytes (%) (Auto) 10.4, Eosinophils (%) (Auto) 7.5, Basophils (%) (Auto) 0.7, Neutrophils # (Auto ) 2.46, Lymphocytes # (Auto) 0.90, Monocytes # (Auto) 0.43, Eosinophils # (Auto ) 0.31, Basophils # (Auto) 0.03 05/25/17 07:01 Test 05/25/17 07:01 White Blood Count 4.15 K/uL (4.8-10.8) Red Blood Count 3.69 M/uL (4.7-6.1) Hemoglobin 11.8 g/dL (14.0-18.0) Hematocrit 34.6 % (42-52) Mean Corpuscular Volume 93.8 fL (80-100) Mean Corpuscular Hemoglobin 32.0 pg (25-34) Mean Corpuscular Hemoglobin Concent 34.1 g/dl (32-36) Platelet Count 138 K/uL (130-400) Mean Platelet Volume 9.2 fL (7.4-10.4) Neutrophils (%) (Auto) 59.2 % Lymphocytes (%) (Auto) 21.7 % Monocytes (%) (Auto) 10.4 % Eosinophils (%) (Auto) 7.5 % Basophils (%) (Auto) 0.7 % Neutrophils # (Auto) 2.46 K/uL (1.4-6.5) Lymphocytes # (Auto) 0.90 K/uL (1.2-3.4) Monocytes # (Auto) 0.43 K/uL (0.11-0.59) Eosinophils # (Auto) 0.31 K/uL (0-0.5) Basophils # (Auto) 0.03 K/uL (0-0.2) RDW Standard Deviation 54.9 fL (36.4-46.3) RDW Coefficient of Variation 15.9 % (11.5-14.5) Immature Granulocyte % (Auto) 0.5 % Immature Granulocyte # (Auto) 0.02 K/uL (0.00-0.02) Anion Gap 13.0 mmol/L (3-11) Est Creatinine Clear Calc Drug Dose 10.3 ml/min Estimated GFR () 8.2 Estimated GFR (Non- 7.1 BUN/Creatinine Ratio 5.5 (10-20) Calcium Level 8.9 mg/dl (8.5-10.1) Total Bilirubin 0.4 mg/dl (0.2-1) Direct Bilirubin mg/dl (0-0.2) Aspartate Amino Transf (AST/SGOT) 27 U/L (15-37) Alanine Aminotransferase (ALT/SGPT) 29 U/L (12-78) Alkaline Phosphatase 186 U/L (45-117) C-Reactive Protein 3.85 mg/dl (0-0.29) Total Protein 7.5 gm/dl (6.4-8.2) Albumin 2.9 gm/dl (3.4-5.0) Lipase 120 U/L (73-393) Chemistry Specimen Hemolysis Laboratory studies as stated above per my review. Medications Administered Medications (Trade) Dose Ordered Sig/Moises Route Start Time Stop Time Status Last Admin Dose Admin Hydromorphone HCl (Dilaudid Inj) 0.5 mg NOW STAT IV 05/25/17 07:29 05/25/17 07:30 DC 05/25/17 07:36 0.5 MG Hydromorphone HCl (Dilaudid Inj) 0.5 mg NOW STAT IV 05/25/17 08:53 05/25/17 08:55 DC 05/25/17 08:59 0.5 MG ECG Per My Interpretation Rate (beats per minute): 95 Rhythm: normal sinus Findings: other (LVH, prolonged QT, nonspecific T-wave abnormality ) Comparison ECG Date: 06/15/17 Change: Lateral T-wave changes have improved. ED Course 0642: Past medical records reviewed. The patient was evaluated in room B12B, and a complete history and physical examination were performed. 0702: Discussed the patient's case with Dr. Cornell-Nephrology. 0717: I discussed the patient's case with the Dialysis Clinic. They said the patient have dialysis if the patient can get to the clinic by 11 am. 0727: Ordered Dilaudid Inj 1 mg IV. 0729: Ordered Dilaudid Inj 0.5 mg IV. 0753: I updated the patient on his test results. 0810: The patient's mother will come pick the patient up to take him to dialysis. 0848: I updated the patient's mother on the patient's case. She agreed to take him directly to dialysis. 0853: Ordered Dilaudid Inj 0.5 mg IV. 0900: Upon reevaluation, the patient is resting comfortably. I discussed the results and treatment plan with him. He verbalized agreement of the treatment plan. The patient was discharged home. Medical Decision Differential diagnoses include: Infection, compartment syndrome, anemia, arrhythmia, electrolyte and metabolic abnormality This patient comes in as described above. He is having some pain in his leg. He has had this for the last week. He was admitted here after he had severe hyperkalemia and had to have an IO for resuscitation. While he was in the hospital he had MRI which was unremarkable since he left the hospital he said there is been no change. It hurts when he walks on it he has had no fever or chills. On exam he has good distal pulses , the compartments are soft he has no numbness or weakness or any pain or symptoms in the foot. His calf is not tender is more anteriorly it is not red or warm and he has no definite cellulitis. His white count was not elevated. His CRP is trending downward significantly it was 3.8 down from 15 when last checked. These lab findings also go along with no significant infection. X-ray did not show any acute findings either. He did run out of pain medication which could be exacerbating the scenario. The other concern was when he called dialysis apparently was anemic the other day however he is not today with hemoglobin 11. The big concern is I do want to make sure he does not miss dialysis. I talk to Dr. Cornell, senior electronics technician who took care of him recently in the hospital and ho is talked to [facility] and said that if he makes it there by 11 or 12 today that they can still dialyze him today. I did give him Dilaudid while he was here for his pain 2 a dose of .05mg IV each time . I also wrote him for small prescription for OxyIR 5 mg, 1 to pills every 4-6 hours as needed. He was warned that this can make him drowsy and do not take before drinking, driving, working. He was happy with the plan and discharged to home. Medication Reconcilliation Current Medication List: was personally reviewed by me Blood Pressure Screening Patient's blood pressure: Elevated blood pressure Blood pressure disposition: Elevated BP felt to be situational Consults Time Called: 0658 Consulting Physician: Dr. Cornell-Nephrology Returned Call: [phone] Discussed the patient's case with Dr. Cornell-Nephrology. Impression Primary Impression: Leg pain Additional Impression: End stage renal disease Scribe Attestation The scribe's documentation has been prepared under my direction and personally reviewed by me in its entirety. I confirm that the note above accurately reflects all work, treatment, procedures, and medical decision making performed by me. Departure Information Dispostion Home / Self-Care Prescriptions Oxycodone Immediate Rel Tab (ROXICODONE IR) 5 Mg Tab 1-2 TAB PO Q4H Y for Severe Pain, #24 TAB Prov: Cabrera Kraft M.D. 05/25/17 Referrals Lebron Chu D.O. (PCP) Forms HOME CARE DOCUMENTATION FORM, IMPORTANT VISIT INFORMATION Patient Instructions My [facility] Additional Instructions Go straight to dialysis. They can still dialyze you if you get there before 11 or 12. Do not miss dialysis. If you miss dialysis return to the ER Return if: Increasing pain, fever or chills, redness or warmth, numbness weakness, worsening symptoms, any new problems or concerns. For pain, may use OxyIR 5 mg, 1-2 pills every 4-6 hours as needed OxyIR may make you drowsy do not take before drinking, driving, working Do not take OxyIR with any other pain medication or sedating medication Problem Qualifiers
[2017-05-25 07:11] LABS: BASO % 0.7 %; BASO ABS # 0.03 K/uL (0-0.2); EOS % 7.5 %; EOS ABS # 0.31 K/uL (0-0.5); HEMATOCRIT 34.6 % (42-52); HEMOGLOBIN 11.8 g/dL (14.0-18.0); IG# 0.02 K/uL (0.00-0.02); LYMPH % 21.7 %; MEAN CELL VOLUME 93.8 fL (80-100); MEAN CORPUSCULAR HGB CONC 34.1 g/dl (32-36); MEAN PLATELET VOLUME 9.2 fL (7.4-10.4); MONO % 10.4 %; MONO ABS # 0.43 K/uL (0.11-0.59); NEUT % 59.2 %; NEUT ABS # 2.46 K/uL (1.4-6.5); PLATELET COUNT 138 K/uL (130-400); RED CELL DISTRIBUTION WIDTH CV 15.9 % (11.5-14.5); RED CELL DISTRIBUTION WIDTH SD 54.9 fL (36.4-46.3); WHITE BLOOD COUNT 4.15 K/uL (4.8-10.8)
[2017-05-25] MEDS ORDERED: HYDROmorphone INJ 1 MG/ML SYR IV STA (07:27)
[2017-05-25] MEDS ORDERED: HYDROmorphone INJ 0.5 MG/0.5 ML SYR IV STA ×2 (07:29→08:53)
[2017-05-25 07:41] LABS: ALBUMIN 2.9 gm/dl (3.4-5.0); CALCIUM 8.9 mg/dl (8.5-10.1); CREATININE 9.42 mg/dl (0.60-1.40); POTASSIUM 4.2 mmol/L (3.5-5.1); TOTAL PROTEIN 7.5 gm/dl (6.4-8.2)
[2017-05-25] MEDS ORDERED: OXYC1TAB3 PO (08:03)
--- NOTE | 2017-05-25 08:30 | DIAGNOSTIC IMAGING REPORT ---
R TIBIA/FIBULA 2 VIEWS ROUTINE CLINICAL HISTORY: eval for osteo infection COMPARISON: 05/14/2017 DISCUSSION: The bones and joint spaces appear intact. There is no evidence of fracture, dislocation or bony disease. There is no evidence for soft tissue swelling. IMPRESSION: Negative study. No change from the prior exam. The above report was generated using voice recognition software. It may contain grammatical, syntax or spelling errors. Electronically signed by: Gary Chun M.D. 05/25/2017 8:29 AM Dictated Date/Time: 05/25/2017 8:26 AM
[2017-05-25 09:05] VITALS: BP 155/93; PULSE 98; O2SAT 95
== END 2017-05-25 09:05 | disposition home or self-care (01) ==
LOC: EDBD 06:25 → C.EDB 06:26
DX: M79.604 Pain in right leg (principal); M79.605 Pain in left leg; N18.6 End stage renal disease; I12.0 Hypertensive chronic kidney disease with stage 5 chronic kidney disease or end stage renal disease; Z99.2 Dependence on renal dialysis; Z79.899 Other long term (current) drug therapy; Z88.0 Allergy status to penicillin; Z88.1 Allergy status to other antibiotic agents; Z86.718 Personal history of other venous thrombosis and embolism

== ENCOUNTER 2017-06-01 08:52 | Emergency (ER) | payer OTHER ==
[~2017-06-01] VITALS: Ht 170.2 cm; Wt 62.0 kg
[~2017-06-01 08:52] MED LIST changes: -FERR1TAB68 PO; -GABA-112 PO; -GABA-113 PO; -LEVO50TA6 PO; -NORT50CA PO; +OXYC1TAB3 PO; -SERT50TA PO; -SEVE800T7 PO
[2017-06-01 09:09] VITALS: TEMP 36.4; Ht 170.2 cm; Wt 62.0 kg
[2017-06-01] MEDS ORDERED: NORT50CA PO (09:44)
[2017-06-01] MEDS ORDERED: SERT50TA PO (09:44)
[2017-06-01] MEDS ORDERED: GABA-112 PO (09:44)
[2017-06-01] MEDS ORDERED: SEVE800T7 PO ×2 (09:50)
[2017-06-01] MEDS ORDERED: OXYMETAZOLINE HCL 0.05% NA SPR 15 ML BTL STA (09:53)
[2017-06-01] MEDS ORDERED: LIDOCAINE/EPINEPHRINE 1% 20 ML VIAL INFIL ONE (10:00)
[2017-06-01] MEDS ORDERED: COCAINE 4% 1ML SYR EXT STA (10:38)
[2017-06-01] MEDS ORDERED: COCAINE HCL 4% / 4 ML VIAL EXT SCH (11:00)
[2017-06-01 11:56] LABS: BASO % 0.8 %; BASO ABS # 0.07 K/uL (0-0.2); EOS % 7.8 %; EOS ABS # 0.73 K/uL (0-0.5); HEMATOCRIT 28.8 % (42-52); HEMOGLOBIN 9.6 g/dL (14.0-18.0); IG# 0.02 K/uL (0.00-0.02); LYMPH % 20.1 %; LYMPH ABS # 1.87 K/uL (1.2-3.4); MEAN CELL VOLUME 95.7 fL (80-100); MEAN CORPUSCULAR HEMOGLOBIN 31.9 pg (25-34); MEAN CORPUSCULAR HGB CONC 33.3 g/dl (32-36); MEAN PLATELET VOLUME 9.1 fL (7.4-10.4); MONO % 5.5 %; MONO ABS # 0.51 K/uL (0.11-0.59); NEUT % 65.6 %; NEUT ABS # 6.12 K/uL (1.4-6.5); PLATELET COUNT 208 K/uL (130-400); RED CELL DISTRIBUTION WIDTH CV 15.9 % (11.5-14.5); RED CELL DISTRIBUTION WIDTH SD 55.7 fL (36.4-46.3); WHITE BLOOD COUNT 9.32 K/uL (4.8-10.8)
[2017-06-01 12:31] LABS: CALCIUM 9.6 mg/dl (8.5-10.1); CREATININE 9.91 mg/dl (0.60-1.40); POTASSIUM 4.3 mmol/L (3.5-5.1)
[2017-06-01] MEDS ORDERED: TRANEXAMIC ACID 100 MG/ML 10 ML AMP TOP ONE (13:00)
[2017-06-01] MEDS ORDERED: MoRPHine SULFATE 4 MG/ML 1 ML CARP\\VIAL IV STA (14:34)
[2017-06-01] MEDS ORDERED: SILVER NITR/POTASSIUM NITRATE APPLICATOR ONE (14:55)
[2017-06-01] MEDS ORDERED: LIDOCAINE 4% W/AFRIN NASAL SOLN 4ML ONE (14:56)
--- NOTE | 2017-06-01 15:31 | Medical Consult ---
Consultation Date of Consultation: Jun 01, 2017. Attending Physician: History of Present Illness 22 yo male who presented to the ED today with persistent epistaxis. He has extensive medical history including ESRD on dialysis, aortic dissection, renal transplant. He started with a nose bleed earlier today after he blew his nose. He went to [facility] ED where patient states the sprayed something up his nose and discharged him. He states they never looked in his nose. He was still bleeding at the time of the discharge. He then had a friend drive him to [facility] ED where he was evaluated by the ED physicians here. Several packs were attempted to be placed but the bleeding persisted. His Hgb is 9.6. Per outside records he is chronically anemic with his chronic medical issues. His platelet count is normal. Of note, patient has history of chronic NG tube for feeding. He has not had any issues with nose bleeds this profuse in the past. He did miss his dialysis today. Past Medical/Surgical History Medical Problems: (1) Acute hyperkalemia Status: Acute (2) Acute renal failure Status: Acute (3) Back pain Status: Acute (4) Bilateral pneumonia Status: Acute (5) Cardiac arrhythmia Status: Acute (6) Creatinine elevation Status: Acute (7) Dehydration Status: Acute (8) Dysrhythmia Status: Acute (9) End stage renal disease Status: Acute (10) ESR raised Status: Acute (11) Fluid overload Status: Acute (12) Hypertensive emergency Status: Acute (13) Intractable vomiting Status: Acute (14) Leg pain Status: Acute (15) Leukocytosis Status: Acute (16) Nausea vomiting and diarrhea Status: Acute (17) Non-occlusive thrombus Status: Acute (18) Pleural effusion Status: Acute (19) Pneumonia Status: Acute (20) Prolonged QT interval Status: Acute (21) Supratherapeutic INR Status: Acute (22) Vomiting Status: Acute Social History Problems: (1) Status post kidney transplant Status: Acute Family History Cancer Hypertension Social History Smoking Status: Never Smoker Drug Use: none Marital Status: single Housing Status: lives with family Occupation Status: student Allergies Coded Allergies: Penicillins (Unverified Allergy, Severe, FACE SWELLS, 06/01/17) Amoxicillin (Verified Allergy, Unknown, ?, 06/01/17) Review of Systems Constitutional: No fever, No chills, No sweats, No weight loss, No weakness, No fatigue, No problem reported Eyes: No worsening of vision, No eye pain, No redness, No discharge, No diplopia, No problem reported ENT: + problem reported (see HPI) Respiratory: No cough, No sputum, No wheezing, No shortness of breath, No dyspnea on exertion, No dyspnea at rest, No hemoptysis, No problem reported Cardiovascular: No chest pain, No orthopnea, No PND, No edema, No claudication , No palpitations, No problem reported Neurologic: No memory loss, No paralysis, No weakness, No numbness/tingling, No vertigo, No balance problems, No problem reported Hematologic / Lymphatic: No abnormal bleeding/bruising, No clotting problems, No swollen lymph nodes, No night sweats, No problem reported Integumentary: No rash, No itch, No new/changing skin lesions, No color change , No bleeding, No problem reported Physical Exam Date Time Temp Pulse Resp B/P (MAP) Pulse Ox O2 Delivery O2 Flow Rate FiO2 06/01/17 14:19 113 123/72 99 Room Air 06/01/17 14:02 119 100 Room Air 06/01/17 13:38 114/67 06/01/17 12:36 108 16 121/71 96 Room Air 06/01/17 11:28 120 06/01/17 10:29 114 16 121/69 96 Room Air 06/01/17 09:09 36.4 117 16 121/59 94 Room Air PROCEDURE Attention was directed to the nose. The 7.5 balloon pack was removed. Examination of the nose with a headlight was then performed. There is a large septal perforation and adhesions from the septum to the bilateral inferior turbinates. Two brisk areas of bleeding were noted on the posterior superior aspect of the septal perforation. These was cauterized with silver nitrate. Bleeding stopped. I then placed surgifoam around the circumference of the septal perforation. Lastly, floseal was applied to the nose bilaterally, specifically coating the septal perforation. Examination of the posterior pharyngeal wall was then performed and this revealed no active bleeding. Patient tolerated procedure well. General Appearance: WD/WN, no apparent distress Head: normocephalic, atraumatic Eyes: normal inspection, PERRL, EOMI ENT: hearing grossly normal, + pertinent finding (Right 7.5 balloon pack in nare. Examination of the left nare revealed the pack protruding through a large septal perforation into the left nare. ) Neck: no adenopathy, thyroid normal Respiratory/Chest: no respiratory distress, no accessory muscle use Cardiovascular: no edema, no JVD Skin: normal color, warm/dry, no rash Lymphatic: no adenopathy Laboratory Results Last 24 Hours Test 06/01/17 11:36 White Blood Count 9.32 K/uL Red Blood Count 3.01 M/uL Hemoglobin 9.6 g/dL Hematocrit 28.8 % Mean Corpuscular Volume 95.7 fL Mean Corpuscular Hemoglobin 31.9 pg Mean Corpuscular Hemoglobin Concent 33.3 g/dl Platelet Count 208 K/uL Mean Platelet Volume 9.1 fL Neutrophils (%) (Auto) 65.6 % Lymphocytes (%) (Auto) 20.1 % Monocytes (%) (Auto) 5.5 % Eosinophils (%) (Auto) 7.8 % Basophils (%) (Auto) 0.8 % Neutrophils # (Auto) 6.12 K/uL Lymphocytes # (Auto) 1.87 K/uL Monocytes # (Auto) 0.51 K/uL Eosinophils # (Auto) 0.73 K/uL Basophils # (Auto) 0.07 K/uL RDW Standard Deviation 55.7 fL RDW Coefficient of Variation 15.9 % Immature Granulocyte % (Auto) 0.2 % Immature Granulocyte # (Auto) 0.02 K/uL Sodium Level 134 mmol/L Potassium Level 4.3 mmol/L Chloride Level 97 mmol/L Carbon Dioxide Level 27 mmol/L Anion Gap 10.0 mmol/L Blood Urea Nitrogen 48 mg/dl Creatinine 9.91 mg/dl Est Creatinine Clear Calc Drug Dose 10.3 ml/min Estimated GFR () 7.8 Estimated GFR (Non- 6.7 BUN/Creatinine Ratio 4.8 Random Glucose 93 mg/dl Calcium Level 9.6 mg/dl Assessment & Plan 22 yo male with epistaxis from large septal perforation - epistaxis management as above in the procedure note - recheck of the nose and posterior pharyngeal wall on several occasions after procedure revealed no further bleeding. - recommend recheck of Hgb. If stable, can discharge home. He has dialysis tomorrow and will have Hgb checked again - recommend discharge on antibiotics. - no nose blowing for 1 week - saline spray every hr while awake.
[2017-06-01 16:34] LABS: HEMATOCRIT 26.7 % (42-52)
[2017-06-01] MEDS ORDERED: CLIN300C10 OR (16:49)
[2017-06-01 17:24] VITALS: BP 140/88; PULSE 99; O2SAT 99
--- NOTE | 2017-06-01 17:39 | EMERGENCY ROOM VISIT NOTE ---
History Report prepared by Anthony: George Patel Under the Supervision of: Dr. Lefty Fitzpatrick M.D. First contact with patient: 09:32 Chief Complaint: NOSE BLEED (MINOR) Stated Complaint: BLOODY NOSE History of Present Illness The patient is a 22 year old male who presents to the Emergency Room with complaints of a constant nosebleed beginning a few hours ago. He was seen at the [facility] for similar symptoms earlier today. The patient has a history of diabetes, renal transplant, aortic dissection, and ESRD on dialysis. He is not on any blood thinning medication. He has no history of similar symptoms. The patient states that his bleeding began this morning after blowing his nose. He denies recent trauma or injury to his face. Source of History: patient Onset: A few hours ago Position: nose Timing: constant Review of Systems See HPI for pertinent positives and negatives. A total of ten systems were reviewed and were otherwise negative. 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, right lower leg (15) Thrombosis of arteriovenous dialysis fistula (16) Thrombosis of arteriovenous dialysis fistula (17) Wide-complex tachycardia Surgical Problems: (1) Aortic dissection (2) Renal transplant, status post Family History Cancer Hypertension Social History Smoking Status: Never Smoker Alcohol Use: none Drug Use: none Marital Status: single Housing Status: lives with family Occupation Status: student Current/Historical Medications Scheduled Atorvastatin (Lipitor), 40 MG PO QPM Carvedilol (Coreg), 25 MG PO BID Cholecalciferol (Vitamin D3), 1 TAB PO DAILY Clindamycin Hcl (Clindamycin Hcl), 1 CAP OR QID Doxycycline (Monohydrate) (Doxycycline), 100 MG PO BID Ferric Citrate (Auryxia), 420 MG PO TIDM Gabapentin (Neurontin), 200 MG PO QAM Gabapentin (Neurontin), 300 MG PO HS Ibuprofen Tab (Motrin), 1 TAB PO TID Levothyroxine Sodium (Levothyroxine Sodium), 50 MCG PO QAM Lisinopril (Zestril), 40 MG PO DAILY Sertraline (Zoloft), 50 MG PO DAILY Sevelamer Carbonate (Renvela), 1,600 MG PO TIDM Scheduled PRN Nortriptyline (Pamelor), 50 MG PO DAILY PRN for UNDECIDED Sevelamer Carbonate (Renvela), 800 MG PO DAILY PRN for With a Snack Allergies Coded Allergies: Penicillins (Unverified Allergy, Severe, FACE SWELLS, 06/01/17) Amoxicillin (Verified Allergy, Unknown, ?, 06/01/17) Physical Exam Vital Signs Date Time Temp Pulse Resp B/P (MAP) Pulse Ox O2 Delivery O2 Flow Rate FiO2 06/01/17 17:21 101 17 140/88 99 06/01/17 16:54 106 99 Room Air 06/01/17 16:40 110 06/01/17 16:07 120 06/01/17 14:19 113 123/72 99 Room Air 06/01/17 14:02 119 100 Room Air 06/01/17 13:38 114/67 06/01/17 12:36 108 16 121/71 96 Room Air 06/01/17 11:28 120 06/01/17 10:29 114 16 121/69 96 Room Air 06/01/17 09:09 36.4 117 16 121/59 94 Room Air Physical Exam Physical Exam GENERAL: He is oriented to person, place, and time. He appears well-developed and well-nourished. He does not appear distressed. ____ HENT: Exam performed. Head: Normocephalic and atraumatic. Right Ear: External ear normal. No mastoid tenderness. Left Ear: External ear normal. No mastoid tenderness. Nose/Mouth/Throat: Blood coming from the bilateral anterior nares. No blood in the oropharynx. The oropharynx is clear and moist. No trismus in the jaw. No dental abscesses or uvula swelling. No oropharyngeal exudate or tonsillar abscesses. ____ EYES: Conjunctivae and EOM are normal. Pupils are equal, round, and reactive to light. Right eye exhibits no discharge. Left eye exhibits no discharge. No scleral icterus. ____ NECK: Normal range of motion. Neck supple. No JVD present. No spinous process tenderness present. No carotid bruit present. No rigidity. No tracheal deviation and normal range of motion present. No Brudzinski's sign and no Kernig 's sign noted. ____ CV: Normal rate, regular rhythm, normal heart sounds and intact distal pulses. There is no peripheral edema. Palpable radial pulses bue. ____ PULM/CHEST: Effort normal and breath sounds normal. No respiratory distress. No stridor. He has no wheezes. He has no rales. Chest Wall: He exhibits no tenderness. ____ ABD: The abdomen is soft. Bowel sounds are normal. He has no distension. No mass is present. There is no tenderness. There is no rebound, no guarding, no Brown's sign and no tenderness at McBurney's point. Rovsig negative MUSC/SKEL: Normal range of motion. There is no peripheral edema, tenderness or deformity. LYMPH: No cervical adenopathy. ____ NEURO: He is alert and oriented to person, place, and time. He has normal strength. No cranial nerve deficit or sensory deficit. Coordination and gait normal. GCS eye subscore is 4. GCS verbal subscore is 5. GCS motor subscore is 6. Cerebellar tests wnl. ____ SKIN: Skin is warm and dry. He is not diaphoretic. ____ PSYCH: He has a normal mood and affect. His behavior is normal. Judgment and thought content normal. ____ Medical Decision & Procedures Laboratory Results 06/01/17 11:36 Red Blood Count 3.01, Mean Corpuscular Volume 95.7, Mean Corpuscular Hemoglobin 31.9, Mean Corpuscular Hemoglobin Concent 33.3, Mean Platelet Volume 9.1, Neutrophils (%) (Auto) 65.6, Lymphocytes (%) (Auto) 20.1, Monocytes (%) (Auto) 5.5, Eosinophils (%) (Auto) 7.8, Basophils (%) (Auto) 0.8, Neutrophils # (Auto) 6.12, Lymphocytes # (Auto) 1.87, Monocytes # (Auto) 0.51, Eosinophils # (Auto) 0.73, Basophils # (Auto) 0.07 06/01/17 16:10 06/01/17 11:36 Test 06/01/17 11:36 White Blood Count 9.32 K/uL (4.8-10.8) Red Blood Count 3.01 M/uL (4.7-6.1) Hemoglobin 9.6 g/dL (14.0-18.0) Hematocrit 28.8 % (42-52) Mean Corpuscular Volume 95.7 fL (80-100) Mean Corpuscular Hemoglobin 31.9 pg (25-34) Mean Corpuscular Hemoglobin Concent 33.3 g/dl (32-36) Platelet Count 208 K/uL (130-400) Mean Platelet Volume 9.1 fL (7.4-10.4) Neutrophils (%) (Auto) 65.6 % Lymphocytes (%) (Auto) 20.1 % Monocytes (%) (Auto) 5.5 % Eosinophils (%) (Auto) 7.8 % Basophils (%) (Auto) 0.8 % Neutrophils # (Auto) 6.12 K/uL (1.4-6.5) Lymphocytes # (Auto) 1.87 K/uL (1.2-3.4) Monocytes # (Auto) 0.51 K/uL (0.11-0.59) Eosinophils # (Auto) 0.73 K/uL (0-0.5) Basophils # (Auto) 0.07 K/uL (0-0.2) RDW Standard Deviation 55.7 fL (36.4-46.3) RDW Coefficient of Variation 15.9 % (11.5-14.5) Immature Granulocyte % (Auto) 0.2 % Immature Granulocyte # (Auto) 0.02 K/uL (0.00-0.02) Anion Gap 10.0 mmol/L (3-11) Est Creatinine Clear Calc Drug Dose 10.3 ml/min Estimated GFR () 7.8 Estimated GFR (Non- 6.7 BUN/Creatinine Ratio 4.8 (10-20) Calcium Level 9.6 mg/dl (8.5-10.1) Laboratory results reviewed by me Medications Administered Medications (Trade) Dose Ordered Sig/Moises Route Start Time Stop Time Status Last Admin Dose Admin Cocaine HCl (Cocaine HCl 4%) 2 ml 1100 EXT 06/01/17 11:00 06/01/17 13:00 DC 06/01/17 11:37 2 ML Procedure Anterior Nasal Packing Indication: epistaxis Verbal consent obtained. Risks and benefits were explained with the usual customary discussion. A time out was taken. Clots were removed with suction. The right naris was prepped with Afrin and lidocaine. A 5.5-cm nasal balloon was placed in a standard fashion. The patient tolerated this well. Hemostasis was achieved. No complications. ED Course 0935: The patient was evaluated in room B5. A complete history and physical exam was performed. Patient was able to blow out blood clots from his nose. Patient was instructed to apply direct pressure over his bilateral nares. 0951: I checked on the patient. He is still bleeding. He continues to pass clots from his bilateral nares. I advised him to continue blowing his nose to remove clots before holding pressure over his nose. 0953: Ordered Afrin 0.05% Nasal Anatone NA. 1000: Ordered Xylocaine/Epine 1% Inj 20 ml INFIL. 1007: I applied the Afrin Anatone to the patient's nares bilaterally. He was given Lidoderm with epi soaked pledgets that he inserted into his bilateral marriage and held pressure on them. 1035: I reassessed the patient. After Afrin and pledgets soak with Epi, the patient's bleeding stopped momentarily before resuming. He is still passing large blood clots. 1100: Ordered Cocaine HCl 4% 2 mL EXT. 1215: Cocaine pledges did not help patient's anterior epistaxis. Patient had a Merocel tampon packed in the right nare (see procedure note for details). 1245: I checked in on the patient. He is bleeding around the Merocel tampon. 1300: Ordered Cyklokapron Inj 1000 mg TOP. 1345: I reexamined the patient. The TXA did not stop the patient's bleeding. A rhinorocket was placed in the patient's right nare, and patient states he can feel blood in the left nare. Placed a Merocel tampon in the left nare. Nursing staff states that the patient has not been compliant, and continues to move around and pick at his nose. 1352: I spoke with Dr. Lal of ENT. Discussed the patient's case. Dr. Lal recommends trying to place a 7.5 rhinorocket on the left side as well, and blow both of them up. He would like to be called back if the bleeding is not controlled, and if so, he will see the patient. He feels the patient may possibly need admitted to the hospital if his bleeding cannot be controlled. 1430: Dr. Lal will come evaluate the patient in the ED. Patient is trying to remove his right sided rapid rhino. 1434: Ordered Morphine Sulfate 4 mg IV. 1450: ENT is at bedside. 1535: I spoke with Dr. Lal at bedside. He states that the patient appears to have had a septal perforation (likely due to chronic NG tube). He packed the perforation with a small surgical packing device. Dr. aLl requests a repeat H &H and feels the patient would be safe for discharge if they are within his normal range. 1635: The patient's vitals are stable. He is no longer actively bleeding, and has tolerated PO. The patient has had a mild decrease in hemoglobin without need for transfusion. He states that he contacted dialysis and they are able to dialyze him tomorrow. His potassium is within normal limits. Patient will be discharged to follow up. DISCHARGE - Plan of care discussed with patient and questions answered. The patient was given both verbal and printed discharge instructions. The patient verbalized understanding and ability to comply. The patient is to seek outpatient follow up as noted in the discharge instructions. The patient verbalized understanding and ability to comply. The patient is discharged in stable condition. The patient was instructed to return for worsening symptoms. Medical Decision 0935: The patient was evaluated in room B5. A complete history and physical exam was performed. Patient was able to blow out blood clots from his nose. Patient was instructed to apply direct pressure over his bilateral nares. 0951: I checked on the patient. He is still bleeding. He continues to pass clots from his bilateral nares. I advised him to continue blowing his nose to remove clots before holding pressure over his nose. 0953: Ordered Afrin 0.05% Nasal Anatone NA. 1000: Ordered Xylocaine/Epine 1% Inj 20 ml INFIL. 1007: I applied the Afrin Anatone to the patient's nares bilaterally. He was given Lidoderm with epi soaked pledgets that he inserted into his bilateral marriage and held pressure on them. 1035: I reassessed the patient. After Afrin and pledgets soak with Epi, the patient's bleeding stopped momentarily before resuming. He is still passing large blood clots. 1100: Ordered Cocaine HCl 4% 2 mL EXT. 1215: Cocaine pledges did not help patient's anterior epistaxis. Patient had a Merocel tampon packed in the right nare (see procedure note for details). 1245: I checked in on the patient. He is bleeding around the Merocel tampon. 1300: Ordered Cyklokapron Inj 1000 mg TOP. 1345: I reexamined the patient. The TXA did not stop the patient's bleeding. A rhinorocket was placed in the patient's right nare, and patient states he can feel blood in the left nare. Placed a Merocel tampon in the left nare. Nursing staff states that the patient has not been compliant, and continues to move around and pick at his nose. 1352: I spoke with Dr. Lal of ENT. Discussed the patient's case. Dr. Lal recommends trying to place a 7.5 rhinorocket on the left side as well, and blow both of them up. He would like to be called back if the bleeding is not controlled, and if so, he will see the patient. He feels the patient may possibly need admitted to the hospital if his bleeding cannot be controlled. 1430: Dr. Lal will come evaluate the patient in the ED. Patient is trying to remove his right sided rapid rhino. 1434: Ordered Morphine Sulfate 4 mg IV. 1450: ENT is at bedside. 1535: I spoke with Dr. Lal at bedside. He states that the patient appears to have had a septal perforation (likely due to chronic NG tube). He packed the perforation with a small surgical packing device. Dr. Lal requests a repeat H &H and feels the patient would be safe for discharge if they are within his normal range. 1635: The patient's vitals are stable. He is no longer actively bleeding, and has tolerated PO. The patient has had a mild decrease in hemoglobin without need for transfusion. He states that he contacted dialysis and they are able to dialyze him tomorrow. His potassium is within normal limits. Patient will be discharged to follow up. DISCHARGE - Plan of care discussed with patient and questions answered. The patient was given both verbal and printed discharge instructions. The patient verbalized understanding and ability to comply. The patient is to seek outpatient follow up as noted in the discharge instructions. The patient verbalized understanding and ability to comply. The patient is discharged in stable condition. The patient was instructed to return for worsening symptoms. Medication Reconcilliation Current Medication List: was personally reviewed by me Blood Pressure Screening Patient's blood pressure: Normal blood pressure Blood pressure disposition: Did not require urgent referral Consults Time Called: [id number] Consulting Physician: Dr. Lal - ENT Returned Call: [phone] Discussed the patient's case. Dr. Lal recommends trying to place a 7.5 rhinorocket on the left side as well, and blow both of them up. He would like to be called back if the bleeding is not controlled, and if so, he will see the patient. He feels the patient may possibly need admitted to the hospital if his bleeding cannot be controlled. 1407: I spoke with Dr. Lal again. He recommends the patient gargle with water. 1430: I updated Dr. Lal on the patient's situation. He will come evaluate the patient in the ED. Impression Primary Impression: Nasal septal perforation Additional Impression: Epistaxis Scribe Attestation The scribe's documentation has been prepared under my direction and personally reviewed by me in its entirety. I confirm that the note above accurately reflects all work, treatment, procedures, and medical decision making performed by me. The chart was completed utilizing Gradeable Speech voice recognition software. Grammatical errors, random word insertions, pronoun errors, and incomplete sentences are an occasional consequence of this system due to software limitations, ambient noise, and hardware issues. Any formal questions or concerns about the content, text, or information contained within the body of this dictation should be directly addressed to the physician for clarification. Departure Information Dispostion Home / Self-Care Prescriptions Clindamycin Hcl (CLINDAMYCIN HCL) 300 Mg Cap 1 CAP OR QID for 7 Days, #28 CAP Prov: Lefty Fitzpatrick M.D. 06/01/17 Referrals Lebron Chu D.O. (PCP) Forms HOME CARE DOCUMENTATION FORM, IMPORTANT VISIT INFORMATION, WORK / SCHOOL INSTRUCTIONS Patient Instructions Anatomy Nasal Inside View, [facility] Additional Instructions Go to dialysis tomorrow. Be sure to take the antibiotic on a full stomach. Take probiotics and eat yogurt while taking the antibiotic. Return to the emergency department if you develop fever greater than 100.4, begin swallowing blood, your nosebleed returns, he developed palpitations, lose consciousness. Problem Qualifiers
[2017-06-01] MEDS ORDERED: GABA-113 PO (18:33)
[2017-06-01] MEDS ORDERED: FERR1TAB68 PO (18:33)
[2017-06-01] MEDS ORDERED: LEVO50TA6 PO (18:55)
== END 2017-06-01 17:25 | disposition home or self-care (01) ==
LOC: C.EDB 08:54
DX: J34.89 Other specified disorders of nose and nasal sinuses (principal); R04.0 Epistaxis; R73.9 Hyperglycemia, unspecified; E87.5 Hyperkalemia; I10 Essential (primary) hypertension; Z88.8 Allergy status to other drugs, medicaments and biological substances